=== PATIENT | male | born 1935 | race Caucasian/White ===

== ENCOUNTER → 2017-09-10 09:42 | Outpatient (CLI) | payer MEDICARE, SELFPAY ==
--- NOTE | 2017-09-10 09:53 | ECHOD_ITS ---
Reason For Study: MVR Procedure This was a 2D Doppler, Color Flow transthoracic echocardiogram. The exam was of adequate technical quality. Exam performed in department. Left Ventricle Normal LV size. Left ventricular systolic function is normal. The estimated ejection fraction is 60 %. No regional wall motion abnormalities noted. Right Ventricle Normal RV size. Normal systolic function. Atria The left atrium is moderately enlarged. Normal right atrium. No doppler evidence for ASD. Mitral Valve Stable appearing bioprosthetic mitral valve apparatus. Tricuspid Valve Normal tricuspid valve. Mild tricuspid valve insufficiency. Right ventricular systolic pressure estimated to be 23 mmHg. Aortic Valve Trisinus/trileaflet aortic valve. Normal aortic valve. Pulmonic Valve The pulmonic valve is not well visualized. Trivial pulmonic valve insufficiency. Great Vessels Borderline to mildly dilated aortic root / ascending aorta. Pericardium/Pleural No pericardial effusion. MMode/2D Measurements & Calculations LVIDd: 3.8 cm IVSd: 0.96 cm Ao root diam: 3.6 cm LVIDs: 2.4 cm LVPWd: 1.1 cm RVDd: 3.1 cm FS: 37.5 % LAV(MOD-bp): 78.4 ml EDV(MOD-sp4): 75.0 ml EDV(MOD-sp2): 84.4 ml LAV(MOD-bp) Indexed: 44.6 ml/m2 ESV(MOD-sp4): 24.9 ml EF(MOD-sp2): 65.8 % LAV(MOD-sp2): 71.0 ml EF(MOD-sp4): 66.8 % LAV(MOD-sp4): 85.3 ml SV(MOD-sp4): 50.1 ml SV(MOD-sp2): 55.5 ml LA A4 area: 25.0 cm2 RA A4 area: 12.6 cm2 Doppler Measurements & Calculations MV E max brent: 116.0 cm/sec Lat Peak E' Brent: 5.2 cm/sec Med Peak E' Brent: 4.0 cm/sec MV A max brent: 128.4 cm/sec E/E' lat: 22.4 E/E' med: 28.9 MV E/A: 0.90 MV V2 max: 137.2 cm/sec Ao V2 max: 140.1 cm/sec LV V1 max: 119.3 cm/sec MV max P.5 mmHg Ao max P.9 mmHg LV V1 max P.7 mmHg MV V2 mean: 93.8 cm/sec MV mean P.9 mmHg MV V2 VTI: 41.9 cm TR max brent: 221.9 cm/sec TR max P.7 mmHg Interpretation Summary Left ventricular systolic function is normal. The estimated ejection fraction is 60 %. The left atrium is moderately enlarged. Stable appearing bioprosthetic mitral valve apparatus. Mild tricuspid valve insufficiency. Trivial pulmonic valve insufficiency. Borderline to mildly dilated aortic root / ascending aorta. Right ventricular systolic pressure estimated to be 23 mmHg. Transmitral diastolic flow velocities suggest diastolic dysfunction. Ordering Physician: Jd Cheney/Caleb Tarango Referring Physician: JESUS SCHULTZ Performed By: Venus Estrella, PIETROCS, RVT
== END ==
PROVIDERS: Family Provider Family Medicine; PCP Family Medicine; Visit Provider Nurse Practitioner Family
DX: Z95.2 Presence of prosthetic heart valve (principal); I07.1 Rheumatic tricuspid insufficiency; I06.0 Rheumatic aortic stenosis; I27.20 Pulmonary hypertension, unspecified; Z98.890 Other specified postprocedural states
CPT/HCPCS: 93306

== ENCOUNTER → 2017-09-22 16:31 | Outpatient (CLI) | payer MEDICARE, SELFPAY ==
[2017-09-22 16:55] LABS: CREATININE FINGERSTICK 0.7 mg/dL (0.70-1.30); EGFR FINGERSTICK > 60.0000 mL/min (>60)
--- NOTE | 2017-09-22 17:00 | CT_ITS ---
STUDY: CTA CHEST REASON FOR EXAM: Male, 81 years old. 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 RADIATION DOSAGE (If Supplied By Facility): CTDIvol = ( 8.42 ) mGy, DLP = ( 292.85 ) mGycm TECHNIQUE: The examination was performed with the intravenous administration of 75 ml of Isovue 370 contrast material. 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 Individualized dose optimization techniques were used for this CT. COMPARISON: None. FINDINGS: There is limited enhancement of the main pulmonary artery and right and left pulmonary arteries. There is limited enhancement of the bilateral peripheral pulmonary arteries. There is no demonstrated pulmonary embolism. There is atherosclerotic calcification of the aortic arch with tortuosity. The ascending thoracic aorta is mildly ectatic measuring by 3.5 cm in AP diameter. There is no demonstrated aortic dissection. Sternal cerclage wires are present from a prior sternotomy. There is a mitral valve prosthesis. There is no evidence of pericardial effusion. There are mild coronary calcifications. The heart is within normal limits in size. There are few small normal size nodes in the aortopulmonic window. Normal hilar regions. Normal visualized trachea and bronchi. The lungs are well expanded. There are no pulmonary infiltrates. There are no pleural effusions. Normal chest wall structures. There are degenerative changes of thoracic spine. The visualized portions of the upper abdomen demonstrate partially visualized hypodense lesion in the posterior segment of the right lobe of the liver with probable early enhancement measuring about 3 cm. Correlation with ultrasound is recommended. CT/CTA Chest W/WO Contrast IMPRESSION: Mild ectasia of the ascending thoracic aorta measuring by 3.5 cm in AP diameter. Atherosclerotic calcifications of the aortic arch with tortuosity of the descending thoracic aorta. No evidence of aortic dissection. No infiltrate is seen. Suboptimal enhancement of the pulmonary arteries. No definite pulmonary embolism seen. Liver lesion as described above. Correlation with ultrasound is recommended. Electronically Signed: Dennis Felton MD at 3:48 EDT Tel , Service support ,
== END ==
PROVIDERS: Family Provider Family Medicine; PCP Family Medicine; Visit Provider Nurse Practitioner Family
DX: R93.1 Abnormal findings on diagnostic imaging of heart and coronary circulation (principal); Z95.2 Presence of prosthetic heart valve; Z98.890 Other specified postprocedural states
CPT/HCPCS: 71275; Q9967; A4216

== ENCOUNTER → 2019-06-29 09:30 | Outpatient (CLI) | payer MEDICARE, SELFPAY ==
[2019-06-21 14:03] VITALS: BMI 24.7
--- NOTE | 2019-06-29 09:34 | CDU_ITS ---
Reason For Study: TIA Rt. Velocities/BP Lt. Velocities/BP Prox CCA 152.1/20.6 cm/sec. Prox CCA 123.5/18.2 cm/sec. Mid CCA 90/18.8 cm/sec. Mid CCA 117.4/24.3 cm/sec. Dist CCA 67.3/14.6 cm/sec. Dist CCA 86.4/18.8 cm/sec. Prox ICA 56.4/9.1 cm/sec. Prox ICA 60.8/12.4 cm/sec. Mid ICA 69.5/15.7 cm/sec. Mid ICA 66.2/16.8 cm/sec. Dist ICA 78.3/19 cm/sec. Dist ICA 77.3/23.4 cm/sec. Rt. ICA/CCA = 0.9. Lt. ICA/CCA = 0.7. Prox ECA 112.1/11.4 cm/sec. Prox ECA 122.9/11.5 cm/sec. Rt. Vert. 40.4/9.9 cm/sec. Lt. Vert. 44.7/12.6 cm/sec. Right Extracranial There is homogeneous, smooth atherosclerotic plaque noted in the right common carotid artery. There is homogeneous, smooth atherosclerotic plaque noted in the right internal carotid artery. There is no significant atherosclerotic plaque noted in the right external carotid artery. Antegrade flow is noted in the right vertebral artery. Left Extracranial There is homogeneous, smooth atherosclerotic plaque noted in the left common carotid artery. There is homogeneous, smooth atherosclerotic plaque noted in the left internal carotid artery. There is intimal thickening but no significant atherosclerotic plaque noted in the left external carotid artery. Antegrade flow is noted in the left vertebral artery. Procedure Carotid Duplex 45490. Exam performed in department. Interpretation Summary No hemodynamically significant plaque right extracranial internal carotid artery with less than 50% stenosis. <50% stenosis right external carotid No hemodynamically significant plaque or stenosis left extracranial internal carotid artery with less than 50% stenosis <50% stenosis left external carotid Patent, antegrade, <50% stenosis bilateral vertebrals Ordering Physician: Caleb Tarango Referring Physician: MD Brandon Nickolas Performed By: Shruthi Brown RVT
--- NOTE | 2019-06-29 09:34 | ECHOD_ITS ---
Reason For Study: TIA/ CVA Procedure This was a 2D Doppler, Color Flow transthoracic echocardiogram. The exam was of adequate technical quality. Exam performed in department. Left Ventricle Normal LV size. Left ventricular systolic function is normal. The estimated ejection fraction is 60 %. Post operative septal motion. Unable to assess diastolic dysfunction due to arrhythmia. No regional wall motion abnormalities noted. Right Ventricle Normal RV size. Normal systolic function. Atria The left atrium is moderately enlarged. The right atrium is mildly enlarged. No doppler evidence for ASD. Bubble contrast study negative for right to left interatrial shunt. Mitral Valve Stable appearing bioprosthetic mitral valve apparatus. Trivial transvalvular insufficiency of the mitral valve. Tricuspid Valve Normal tricuspid valve. Moderate (2+) tricuspid valve insufficiency. Right ventricular systolic pressure estimated to be 31 mmHg. Aortic Valve Trisinus/trileaflet aortic valve. Normal aortic valve. Pulmonic Valve The pulmonic valve is not well visualized. Trivial pulmonic valve insufficiency. Great Vessels Mildly dilated ascending aorta. Pericardium/Pleural No pericardial effusion. Medication 22 gauge I.V. with prn adaptor inserted into right arm. Performed a rapid injection of agitated mix of 9 cc saline and 1cc air to assess for atrial septal defect. MMode/2D Measurements & Calculations LVIDd: 3.5 cm IVSd: 1.0 cm Ao root diam: 4.2 cm LVIDs: 2.4 cm LVPWd: 1.0 cm RVDd: 3.6 cm FS: 30.1 % LAV(MOD-bp): 84.6 ml LA A4 area: 25.4 cm2 LA dimension(2D): 5.4 cm LAV(MOD-bp) Indexed: 48.5 ml/m2 LAV(MOD-sp2): 80.9 ml LAV(MOD-sp4): 80.6 ml RA A4 area: 17.4 cm2 Time Measurements MV dec time: 0.51 sec Doppler Measurements & Calculations MV V2 max: 170.6 cm/sec Ao V2 max: 143.1 cm/sec LV V1 max: 137.0 cm/sec MV max P.7 mmHg Ao max P.2 mmHg LV V1 max P.5 mmHg MV V2 mean: 117.6 cm/sec LV V1 mean P.7 mmHg MV mean P.8 mmHg LV V1 mean: 104.5 cm/sec MV V2 VTI: 46.9 cm LV V1 VTI: 28.6 cm TR max abhinav: 266.6 cm/sec MV P1/2t-pr_phl: 148.7 msec TR max P.4 mmHg Interpretation Summary Left ventricular systolic function is normal. The estimated ejection fraction is 60 %. Post operative septal motion. The left atrium is moderately enlarged. The right atrium is mildly enlarged. Stable appearing bioprosthetic mitral valve apparatus. Trivial transvalvular insufficiency of the mitral valve. Moderate (2+) tricuspid valve insufficiency. Trivial pulmonic valve insufficiency. Mildly dilated ascending aorta. Right ventricular systolic pressure estimated to be 31 mmHg. Unable to assess diastolic dysfunction due to arrhythmia. Bubble contrast study negative for right to left interatrial shunt. Ordering Physician: Caleb Tarango Referring Physician: JESUS SCHULTZ Performed By: Venus Estrella, RDCS, RVT
--- NOTE | 2019-06-29 10:33 | CT_ITS ---
STUDY: CT BRAIN WITHOUT CONTRAST REASON FOR EXAM: Male, 83 years old. BRIEF EPISODE OF SLURRED SPEECH X 3 WEEKS AGO RADIATION DOSAGE (If Supplied By Facility): CTDIvol = ( 44.99 ) mGy, DLP = ( 796.11 ) mGycm TECHNIQUE: Transaxial CT imaging of the brain was performed without administration of intravenous contrast material. Individualized dose optimization techniques were used for this CT. COMPARISON: No relevant priors. FINDINGS: Normal soft tissue structures. Normal calvarium. There is mild cerebral atrophy with widening of the extra-axial spaces and ventricular dilatation. There are areas of decreased attenuation within the white matter tracts of the supratentorial brain, consistent with microvascular disease changes. 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 Normal basal ganglia and thalami. Normal brainstem. Normal cerebellum. There is no intracranial hemorrhage. There are no findings of an acute ischemic infarction. Atherosclerotic calcification of the cavernous portions of the internal carotid arteries bilaterally. Mild degree of mucosal thickening along the posterior aspect of the right maxillary sinus. CT/Brain/Head without Contrast IMPRESSION: Chronic involutional changes of the brain. Electronically Signed: Galen Zimmerman, at 12:26 EST , Service support ,
== END ==
PROVIDERS: PCP Family Medicine; Referring Provider Internal Medicine Cardiovascular Disease; Visit Provider Internal Medicine Cardiovascular Disease
DX: I48.0 Paroxysmal atrial fibrillation (principal); I06.0 Rheumatic aortic stenosis; Z86.73 Personal history of transient ischemic attack (TIA), and cerebral infarction without residual deficits
CPT/HCPCS: 70450; 93306; 93880

== ENCOUNTER → 2021-03-27 09:01 | Outpatient (CLI) | payer MEDICARE, SELFPAY ==
--- NOTE | 2021-03-27 09:07 | ECHOD_ITS ---
Reason For Study: Valve replacement eval Procedure This was a 2D Doppler, Color Flow transthoracic echocardiogram. The exam was of adequate technical quality. Exam performed in department. Left Ventricle Normal LV size. Left ventricular systolic function is normal. The estimated ejection fraction is 60 %. Post operative septal motion. Right Ventricle Normal RV size. Normal systolic function. Atria The left atrium is moderately enlarged. The right atrium is mildly enlarged. No doppler evidence for ASD. Mitral Valve Stable appearing bioprosthetic mitral valve apparatus. MIld (1+) transvalvular insufficiency of the mitral valve. Tricuspid Valve Normal tricuspid valve. Moderate (2+) tricuspid valve insufficiency. Right ventricular systolic pressure estimated to be 30 mmHg. Aortic Valve Trisinus/trileaflet aortic valve. Normal aortic valve. Trivial aortic valve insufficiency. Pulmonic Valve The pulmonic valve is not well visualized. Great Vessels Mildly dilated aortic root. Pericardium/Pleural No pericardial effusion. MMode/2D Measurements & Calculations LVIDd: 3.8 cm IVSd: 1.2 cm Ao root diam: 4.1 cm LVIDs: 2.7 cm LVPWd: 1.1 cm LA dimension: 5.1 cm FS: 31.1 % LAV(MOD-bp): 108.5 ml LA A4 area: 28.3 cm2 RA A4 area: 15.8 cm2 LAV(MOD-bp) Indexed: 61.4 ml/m2 LAV(MOD-sp2): 95.8 ml LAV(MOD-sp4): 107.5 ml Time Measurements MV dec time: 0.41 sec Doppler Measurements & Calculations MV E max brent: 157.5 cm/sec Lat Peak E' Brent: 4.6 cm/sec Med Peak E' Brent: 4.8 cm/sec MV A max brent: 121.3 cm/sec E/E' lat: 34.4 E/E' med: 32.5 MV E/A: 1.3 MV V2 max: 180.1 cm/sec MV P1/2t max brent: 179.1 cm/sec Ao V2 max: 148.0 cm/sec MV max P.0 mmHg MV P1/2t: 116.6 msec Ao max P.8 mmHg MV V2 mean: 99.4 cm/sec MV dec slope: 450.1 cm/sec2 MV mean P.6 mmHg MVA(P1/2t): 1.9 cm2 MV V2 VTI: 55.6 cm LV V1 max: 131.0 cm/sec MR max brent: 533.2 cm/sec PA V2 max: 87.6 cm/sec LV V1 max P.9 mmHg MR max P.7 mmHg MR mean brent: 415.2 cm/sec MR mean P.2 mmHg MR VTI: 173.0 cm TR max brent: 259.5 cm/sec TR max P.9 mmHg ECHO/Echo Complete Interpretation Summary Left ventricular systolic function is normal. The estimated ejection fraction is 60 %. Post operative septal motion. The left atrium is moderately enlarged. The right atrium is mildly enlarged. Stable appearing bioprosthetic mitral valve apparatus. MIld (1+) transvalvular insufficiency of the mitral valve. Moderate (2+) tricuspid valve insufficiency. Trivial aortic valve insufficiency. Mildly dilated aortic root. Right ventricular systolic pressure estimated to be 30 mmHg. Transmitral diastolic flow velocities suggest diastolic dysfunction (pseudonorm al pattern). Ordering Physician: Caleb Tarango Referring Physician: MD Brandon Nickolas Performed By: Navjot Sepulveda RCS
== END ==
PROVIDERS: PCP Family Medicine; Referring Provider Internal Medicine Cardiovascular Disease; Visit Provider Internal Medicine Cardiovascular Disease
DX: I07.1 Rheumatic tricuspid insufficiency (principal); Z95.3 Presence of xenogenic heart valve
CPT/HCPCS: 93306

== ENCOUNTER → 2022-03-14 | Outpatient (CLI) | payer MEDICARE, SELFPAY ==
--- NOTE | 2022-03-14 09:07 | ECHOD_ITS ---
Reason For Study: VALVE REPLACEMENT EVAL Procedure This was a 2D Doppler, Color Flow transthoracic echocardiogram. Exam performed in department. Left Ventricle Normal LV size. Left ventricular systolic function is normal. The estimated ejection fraction is 65 %. Post operative septal motion. Stage 2 diastolic dysfunction. Right Ventricle Normal right ventricle. Normal systolic function. Atria The left atrium is moderately enlarged. The right atrium is mildly enlarged. No doppler evidence for ASD. Negative saline contrast study on previous echo 08/2019. Mitral Valve Anterior leaflet diffuse mitral valve thickening. Moderate mitral valve stenosis. Moderate (2+) mitral valve insufficiency. Stable appearing bioprosthetic mitral valve apparatus. Tricuspid Valve Normal tricuspid valve. Moderate (2+) tricuspid valve insufficiency. Right ventricular systolic pressure estimated to be 36 mmHg. Aortic Valve Trisinus/trileaflet aortic valve. Mild focal aortic valve thickening. Trivial aortic valve insufficiency. Pulmonic Valve Normal pulmonic valve. Trivial pulmonic valve insufficiency. Great Vessels Normal aortic root. Pericardium/Pleural No pericardial effusion. MMode/2D Measurements & Calculations LVIDd: 3.4 cm IVSd: 0.77 cm LVOT diam: 2.0 cm LVIDs: 2.3 cm LVPWd: 0.91 cm LVOT area: 3.0 cm2 RVDd: 3.3 cm FS: 32.1 % Ao root diam: 3.6 cm LAV(MOD-bp): 99.4 ml LVAd ap4: 20.7 cm2 LAV(MOD-bp) Indexed: 56.3 ml/m2 LVLd ap4: 6.3 cm LAV(MOD-sp2): 99.7 ml EDV(MOD-sp4): 57.0 ml LAV(MOD-sp4): 98.2 ml EDV(sp4-el): 58.1 ml LVAs ap4: 10.9 cm2 LVLs ap4: 5.2 cm ESV(MOD-sp4): 19.2 ml ESV(sp4-el): 19.5 ml EF(MOD-sp4): 66.4 % EF(sp4-el): 66.4 % SV(MOD-sp4): 37.8 ml SV(sp4-el): 38.6 ml LA A4 area: 27.4 cm2 LA dimension(2D): 4.6 cm RA A4 area: 21.0 cm2 Time Measurements MV dec time: 0.49 sec Doppler Measurements & Calculations MV E max brent: 178.7 cm/sec Lat Peak E' Brent: 4.3 cm/sec Med Peak E' Brent: 4.1 cm/sec MV A max brent: 144.8 cm/sec E/E' lat: 41.4 E/E' med: 43.8 MV E/A: 1.2 MV V2 max: 230.9 cm/sec MV P1/2t max brent: 199.2 cm/sec Ao V2 max: 142.3 cm/sec MV max P.3 mmHg MV P1/2t: 169.5 msec Ao max P.1 mmHg MV V2 mean: 153.4 cm/sec Ao V2 mean: 106.2 cm/sec MV mean P.3 mmHg MV dec slope: 344.3 cm/sec2 Ao mean P.9 mmHg MV V2 VTI: 85.1 cm MVA(P1/2t): 1.3 cm2 Ao V2 VTI: 33.3 cm MVA(VTI): 0.98 cm2 COLIN(I,D): 2.5 cm2 COLIN(V,D): 2.3 cm2 LV V1 max: 110.6 cm/sec SV(LVOT): 83.2 ml PA V2 max: 89.3 cm/sec LV V1 max P.9 mmHg LV V1 mean P.0 mmHg LV V1 mean: 83.1 cm/sec LV V1 VTI: 27.8 cm TR max brent: 287.0 cm/sec TR max P.0 mmHg ECHO/Echo Complete Interpretation Summary Left ventricular systolic function is normal. The estimated ejection fraction is 65 %. Post operative septal motion. The left atrium is moderately enlarged. The right atrium is mildly enlarged. Stable appearing bioprosthetic mitral valve apparatus. Moderate mitral valve stenosis. Moderate (2+) mitral valve insufficiency. Moderate (2+) tricuspid valve insufficiency. Mild focal aortic valve thickening. Trivial aortic valve insufficiency. Trivial pulmonic valve insufficiency. Right ventricular systolic pressure estimated to be 36 mmHg. Trivial pulmonic valve insufficiency. Stage 2 diastolic dysfunction. Ordering Physician: Caleb Tarango Referring Physician: JESUS SCHULTZ Performed By: Claudine Rose RDCS
== END | disposition home or self-care (01) ==
PROVIDERS: PCP Family Medicine; Referring Provider Internal Medicine Cardiovascular Disease; Visit Provider Internal Medicine Cardiovascular Disease
DX: I05.2 Rheumatic mitral stenosis with insufficiency (principal)
CPT/HCPCS: 93306

== ENCOUNTER → 2023-07-31 | Outpatient (CLI) | payer MEDICARE, SELFPAY ==
--- NOTE | 2023-07-31 08:55 | ECHOD_ITS ---
Reason For Study: Chest pain, MVR Procedure This was a 2D Doppler, Color Flow transthoracic echocardiogram. Exam performed in department. Left Ventricle Normal LV size. Mild concentric left ventricular hypertrophy. The left ventricular ejection fraction is 65 %. Stage 2 diastolic dysfunction. Right Ventricle Normal right ventricle. Atria The left atrium is severely enlarged. The right atrium is mildly enlarged. Mitral Valve Bioprosthetic mitral valve. Mean mitral valve gradient 14 mmHg. Moderate mitral valve regurgitation. Tricuspid Valve Moderate (2+) tricuspid valve insufficiency. Right ventricular systolic pressure estimated to be 58 mmHg. Aortic Valve Trisinus/trileaflet aortic valve. Pulmonic Valve The pulmonic valve is not well visualized. Great Vessels Normal sized aortic root. Pericardium/Pleural No pericardial effusion. MMode/2D Measurements & Calculations LVIDd: 3.6 cm IVSd: 1.2 cm LVOT diam: 1.9 cm LVIDs: 2.4 cm LVPWd: 1.2 cm LVOT area: 3.0 cm2 RVDd: 3.9 cm FS: 32.7 % Ao root diam: 3.6 cm LAV(MOD-bp): 132.9 ml LVAd ap4: 23.7 cm2 LAV(MOD-bp) Indexed: 75.7 ml/m2 LVLd ap4: 6.5 cm LAV(MOD-sp2): 104.0 ml EDV(MOD-sp4): 72.5 ml LAV(MOD-sp4): 158.5 ml EDV(sp4-el): 73.2 ml LVAs ap4: 12.8 cm2 LVLs ap4: 5.7 cm ESV(MOD-sp4): 25.6 ml ESV(sp4-el): 24.5 ml EF(MOD-sp4): 64.7 % EF(sp4-el): 66.6 % LVAd ap2: 24.8 cm2 SV(MOD-sp4): 46.9 ml SV(MOD-sp2): 51.4 ml LVLd ap2: 6.6 cm EDV(MOD-sp2): 78.5 ml EDV(sp2-el): 78.8 ml LVAs ap2: 13.2 cm2 LVLs ap2: 5.7 cm ESV(MOD-sp2): 27.1 ml ESV(sp2-el): 25.9 ml EF(MOD-sp2): 65.4 % SV(sp4-el): 48.7 ml LA dimension(2D): 5.5 cm LA A4 area: 35.4 cm2 RA A4 area: 18.2 cm2 TAPSE: 1.4 cm Time Measurements MV dec time: 0.63 sec Doppler Measurements & Calculations MV E max brent: 228.9 cm/sec Lat Peak E' Brent: 3.0 cm/sec Med Peak E' Brent: 3.8 cm/sec MV A max brent: 169.1 cm/sec E/E' lat: 76.2 E/E' med: 60.7 MV E/A: 1.4 MV V2 max: 258.4 cm/sec MV P1/2t max brent: 250.7 cm/sec Ao V2 max: 166.5 cm/sec MV max P.8 mmHg MV P1/2t: 164.6 msec Ao max P.1 mmHg MV V2 mean: 182.5 cm/sec Ao V2 mean: 122.7 cm/sec MV mean P.1 mmHg MV dec slope: 446.2 cm/sec2 Ao mean P.7 mmHg MV V2 VTI: 81.1 cm MVA(P1/2t): 1.3 cm2 Ao V2 VTI: 41.0 cm AV (velocity ratio): 0.78 MVA(VTI): 1.2 cm2 COLIN(I,D): 2.3 cm2 COLIN(V,D): 2.3 cm2 LV V1 max: 128.0 cm/sec SV(LVOT): 95.0 ml PA V2 max: 80.4 cm/sec LV V1 max P.6 mmHg LV V1 mean P.5 mmHg LV V1 mean: 86.9 cm/sec LV V1 VTI: 32.0 cm TR max brent: 364.2 cm/sec TR max P.1 mmHg ECHO/Echo Complete Interpretation Summary Mild concentric left ventricular hypertrophy. The left ventricular ejection fraction is 65 %. Stage 2 diastolic dysfunction. The left atrium is severely enlarged. The right atrium is mildly enlarged. Bioprosthetic mitral valve. Mean peak mitral valve gradient 14 mmHg. Moderate m itral valve regurgitation. Mitral valve mean peak gradient on last examination from February 2022 was 10 mm Hg. Moderate (2+) tricuspid valve insufficiency. Ordering Physician: Shantel Shepard Referring Physician: MD Brandon Nickolas Performed By: Leonor Spear MONA
== END | disposition home or self-care (01) ==
PROVIDERS: PCP Family Medicine; Visit Provider Physician Assistant Medical
DX: R07.9 Chest pain, unspecified (principal); I07.1 Rheumatic tricuspid insufficiency; Z95.3 Presence of xenogenic heart valve
CPT/HCPCS: 93306

== ENCOUNTER → 2023-09-01 | Outpatient (CLI) | payer MEDICARE, SELFPAY ==
[2023-09-01 10:10] LABS: BNP,B-Type NATRIURETIC PEPTIDE 253.5 pg/mL (0-100)
[2023-09-01 10:17] LABS: Anion Gap 6 (5-15); BUN 21 mg/dL (7-18); BUN/Creat Ratio 19.4 RATIO (10-20); Calcium,Total 9.2 mg/dL (8.5-10.1); Chloride 106 mmol/L (98-107); Creatinine, Serum 1.08 mg/dL (0.70-1.30); EST Glomerular Filtration Rate 69 mL/min (>60); Est Glom Filt Rate - Afr Amer 83 mL/min (>60); Glucose 82 mg/dL (74-106); Potassium 3.7 mmol/L (3.5-5.1); Sodium Level 141 mmol/L (136-145)
== END | disposition home or self-care (01) ==
LOC: LAB 08:53
PROVIDERS: PCP Family Medicine; Referring Provider Physician Assistant Medical; Visit Provider Physician Assistant Medical
DX: R06.02 Shortness of breath (principal)
CPT/HCPCS: 36415; 80048; 83880

== ENCOUNTER → 2023-12-08 | Outpatient (CLI) | payer MEDICARE, SELFPAY ==
[2023-12-08 09:20] LABS: Absolute Lymphocyte Count 1.23 X10^3/uL (0.83-4.51); Absolute Neutrophil Count 5.5 X10^3/uL (2.0-7.7); Basophil# 0.04 X10^3/uL; Basophil% 0.5 % (0-1); Eosinophil# 0.16 X10^3/uL; Eosinophils% 2.1 % (0-5); Hematocrit 43.9 % (40-54); Hemoglobin 14.4 g/dL (13.0-16.5); Lymphocyte # 1.23 X10^3/ul (0.83-4.51); Lymphocyte % 16.4 % (19-41); Mean Corp Hgb Conc 32.8 g/dL (32-36); Mean Corpuscular Hgb 30.6 pg (27.0-32.0); Mean Corpuscular Volume 93.2 fL (80-94); Monocyte# 0.61 X10^3/uL; Monocyte% 8.1 % (0-10); NRBC Flagged by Analyzer 0 % (0-5); Neutrophil # 5.45 X10^3/uL (2.7-7.7); Neutrophil % 72.6 % (47-70); Platelet Count 194 K/mm3 (150-450); RBC Distribution Width CV 14.9 % (11.6-14.6); RBC Distribution Width SD 51.2 fl (35.1-43.9); Red Blood Count 4.71 M/mm3 (4.6-6.2); White Blood Count 7.5 K/mm3 (4.4-11.0)
[2023-12-08 10:34] LABS: ALB/GLOB Ratio 0.8 RATIO (0.9-2.4); AST(SGOT) 18 U/L (15-37); Alanine Aminotransfer ALT/SGPT 23 U/L (16-61); Albumin, Serum 3.4 g/dL (3.2-5.0); Alkaline Phosphatase 73 U/L (45-117); Anion Gap 10 (5-15); BUN 22 mg/dL (7-18); BUN/Creat Ratio 19.1 RATIO (10-20); Calcium,Total 9.2 mg/dL (8.5-10.1); Chloride 106 mmol/L (98-107); Creatinine, Serum 1.15 mg/dL (0.70-1.30); EST Glomerular Filtration Rate 64 mL/min (>60); Est Glom Filt Rate - Afr Amer 78 mL/min (>60); Globulin 4.2 g/dL (2.2-4.2); Glucose 101 mg/dL (74-106); Potassium 3.4 mmol/L (3.5-5.1); Protein, Total 7.6 g/dL (6.4-8.2); Sodium Level 140 mmol/L (136-145)
== END | disposition home or self-care (01) ==
LOC: LAB 08:24
PROVIDERS: PCP Family Medicine; Referring Provider Physician Assistant Medical; Visit Provider Physician Assistant Medical
DX: R06.02 Shortness of breath (principal)
CPT/HCPCS: 36415; 80053; 83880; 85025

== ENCOUNTER → 2023-12-10 | Outpatient (CLI) | payer MEDICARE, SELFPAY | END | disposition home or self-care (01) | LOC: PSN 08:19 | PROVIDERS: PCP Family Medicine; Referring Provider Physician Assistant Medical; Visit Provider Physician Assistant Medical | DX: R06.02 Shortness of breath (principal) | CPT/HCPCS: 93225; 93226 ==

== ENCOUNTER → 2023-12-16 | Outpatient (CLI) | payer MEDICARE, SELFPAY ==
--- NOTE | 2023-12-16 08:22 | RAD_ITS ---
STUDY: X-RAY CHEST REASON FOR EXAM: Male, 88 years old. PRUETT TECHNIQUE: PA and lateral views of the chest. COMPARISON: 09/06/2013 FINDINGS: Interval median sternotomy with heart valve replacement. Small bilateral pleural effusions with bibasilar atelectasis. Normal size heart. Normal mediastinum and margot. Normal visualized pulmonary arteries. Normal visualized aortic arch and descending thoracic aorta. Normal visualized thoracic spine. Normal visualized ribs, clavicles, and shoulders. There is no demonstrated abnormality of the visualized soft tissue structures of the upper abdomen. RAD/Chest PA and Lateral IMPRESSION: Small bilateral pleural effusions with bibasilar atelectasis. Electronically Signed: Saud Glass MD at 8:44 EDT ,
== END | disposition home or self-care (01) ==
LOC: RAD 08:12
PROVIDERS: PCP Family Medicine; Visit Provider Physician Assistant Medical
DX: R06.09 Other forms of dyspnea (principal); Z95.3 Presence of xenogenic heart valve
CPT/HCPCS: 71046

== ENCOUNTER → 2023-12-22 | Outpatient (CLI) | payer MEDICARE, SELFPAY ==
--- NOTE | 2023-12-22 | FLU_PTH ---
PATIENT: FUAD PURVIS LOC: [facility]#:[id number] AGE/SX: 88/M ROOM: RE12/22/[address]: ELICEO Peralta : 1935 BED: DIS: 12/22/2023 SPEC #: [id number] RECD: 12/22/23 08:42 STATUS: DANIEL KARINA #: [id number] CATHY: 12/22/23 00:[address]: Shantel Shepard DEPT: CYTOLOGY RECD BY: Sahra Padron ENTERED: 12/22/23 10:15 SP TYPE: Fluid OTHR DR: Dr. Nickolas Taylor MD Tissues: Pleural fluid, NOS Procedures: Special Stain Group II Surgery Specimen Level IV Cytospin Fluid HEADER OPERATION: Thoracentesis fluid PRE-OP DIAGNOSIS: Pleural effusion TISSUE SUBMITTED: Thoracentesis fluid for cytology DIAGNOSIS CYTOLOGY Thoracentesis fluid for cytology (cytospin): Negative for malignant cells. See comment. LEENA/ 12/23/2023 COMMENT Immunohistochemistry ([id number]) supports the above diagnosis. Clinical correlation and appropriate follow up are necessary. This case has been reviewed in consultation with Dr. Cody who concurs with the above diagnosis. CYTOLOGY STUDY Slides are reviewed. CYTOLOGY GROSS Received is 80 ml of ana-cloudy fluid labeled with the patient's name and and designated per the requisition as Thoracentesis fluid. Submitted for cytology preparation including cell block. Mr 12/22/2023 TC:5 CPT: 41317,31964
--- NOTE | 2023-12-22 | IMM_PTH ---
PATIENT: FUAD PURVIS LOC: [facility]#:[id number] AGE/SX: 88/M ROOM: RE12/22/[address]: ELICEO Peralta : 1935 BED: DIS: 12/22/2023 SPEC #: [id number] RECD: 12/23/23 10:38 STATUS: DANIEL REQ #: [id number] CATHY: 12/22/23 00:[address]: Shantel Shepard DEPT: IMMUNOHISTOCHEMISTRY RECD BY: Pranav Stephen ENTERED: 12/23/23 10:39 SP TYPE: IMMUNO OTHR DR: Dr. Nickolas Taylor MD Tissues: THORACIC FLUID Procedures: Synapto (add) RCC (add) NAPSIN A (add) Bert Ret (add) CK20 (add) CK5-6 (add) CK7 (add) CK8 (add) HEP PAR (add) TTF1 (add) Vimentin (add) Pankeratin (initial) P40 (add) PSAP (add) CD68 (ADD) PHYSICIAN & [address] [address] SPECIMEN INFORMATION: Tissue Source: Thoracentesis fluid Clinical Info: Pleural effusion Specimen Number: [id number] CPT code: 33534,66182t04 METHODOLOGY: Deparaffinized sections of prefer/formalin-fixed tissue or PAP/DQ stained slides are incubated with monoclonal/polyclonal antibodies/oligonucleotide probes. Localization is made via biotin free immunoperoxidase method. Appropriate controls are performed and reacted as expected. Results on target cell population are indicated in the following table: RESULTS: ANTIBODY / CLONE RESULT AE1-3 (AE1/AE3/PCK26) negative * CK7 (OV-TL12/30) negative * CK8 (98jrknA34) negative * CK20 (KS20.8) negative Vimentin (V9) negative * CD68 (KP-1) negative TTF-1 (8G7G3/1) negative Napsin A (Rabbit Polyclonal) negative HepPar (OCh1E5) negative RCC (PN-15) negative PSAP (PASE/4LJ) negative CALRET (polyclonal) negative * CK5-6 (D5 & 1684) negative * P40 (BC28) negative * Positive for mesothelial cells These tests were developed and their performance characteristics determined by [facility]. They may not have been cleared or approved by the U.S. Food and Drug Administration. The FDA has determined that such clearance or approval is not necessary. The above immunohistochemical/dualISH markers are ordered and reviewed by the Pathologist. INTERPRETATION: Thoracentesis fluid for cytology (cytospin and cellblock): Negative for malignant cells. LEENA/ 12/24/2023
[2023-12-22] MEDS: Lidocaine 2% (20 ml mdv) 20 ML Vial INFILT (08:05)
--- NOTE | 2023-12-22 08:11 | RAD_ITS ---
STUDY: X-RAY CHEST REASON FOR EXAM: Male, 88 years old. Post thora TECHNIQUE: AP and inspiration and expiration views. COMPARISON: Comparison is made with prior study dated December 16, 2023. FINDINGS: The patient is status post right thoracentesis. There is no evidence of pneumothorax. Blunting of the right costophrenic angle. Residual pleural-parenchymal changes at the left lung base. RAD/Chest Insp/Exp 2 View IMPRESSION: Status post right thoracentesis. No evidence of pneumothorax. Electronically Signed: Galen Zimmerman MD at 8:51 EDT ,
--- NOTE | 2023-12-22 08:22 | PRO.PCM_ITS ---
Procedure Report Date of Procedure: 12/22/23 Assessment & Plan Assessment/Plan (1) Bilateral pleural effusion: PLAN: PROCEDURE: Ultrasound Guided Thoracentesis ORDERING PROVIDER: Shantel Shepard PA-C INDICATION: Male, 88 years old. Bilateral pleural effusions. PROVIDER: ÁNGELA Lemos PROCEDURE: The risks, benefits, and alternatives to the procedure were explained to the patient. The specific risks of bleeding, infection, and pneumothorax requiring chest tube insertion were discussed and accepted. Written informed consent was obtained. The patient was placed in the sitting, upright position. Ultrasonographic evalu ation of the bilateral lower pleural spaces was carried out. An adequate pocket was identified in the right lower pleural space.The overlying skin was prepped and draped in sterile fashion. 2% lidocaine was administered subcutaneously for local anesthesia. Under ultrasound guidance, a 5-Macedonian thoracentesis needle/catheter system was advanced into the right posterior lower pleural fluid collection. 1410 ml of clear ana colored fluid was drained. 100 and mL of this fluid was collected and sent to laboratory for analysis. The catheter was removed, and a sterile dressing was applied. The patient tolerated the procedure well. A chest x-ray was ordered. IMPRESSION: Successful ultrasound-guided thoracentesis of right pleural effusion. Procedures Radiology Radiology US Procedures: [id number] Thoracentesis
[2023-12-22 08:26] VITALS: BP 122/71; PULSE 96; RESP 18; TEMP 36.2; O2SAT 97
[2023-12-22 08:27] VITALS: BP 114/72; PULSE 94; RESP 18
[2023-12-22 08:28] VITALS: BP 107/77; PULSE 85; RESP 18; O2SAT 97
== END | disposition home or self-care (01) ==
LOC: US 07:20
PROVIDERS: PCP Family Medicine; Referring Provider Physician Assistant Medical; Visit Provider Physician Assistant Medical
DX: J90 Pleural effusion, not elsewhere classified (principal); R06.09 Other forms of dyspnea
CPT/HCPCS: 32555; 71046; 88108; 88305; 88313; 88341; 88342

== ENCOUNTER 2023-12-31 18:42 | Inpatient (IN) | payer MEDICARE, SELFPAY ==
[2023-12-31] VITALS (13 sets, daily range): BP systolic 98–178; BP diastolic 50–101; PULSE 90–115; RESP 12–35; TEMP 36.2–37.1; O2SAT 78–96; BMI 23.9; BMI 22.4
--- NOTE | 2023-12-31 18:50 | ED.VIS.DYS ---
HPI History of Present Illness Chief Complaint: Shortness of Breath [facility] Medical History (Updated 12/31/23 @ 20:[address] Lucila Matt MD) Hypothyroid Hypogonadism Rheumatic tricuspid insufficiency Paroxysmal atrial fibrillation Rheumatic aortic stenosis Pulmonary HTN Tricuspid regurgitation Mitral valve stenosis, rheumatic Home Medications ?Medication ?Instructions ?Recorded ?Last Taken ?Type levothyroxine 75 mcg tablet 75 mcg PO DAILY 08/27/13 08/26/13 History aspirin 325 mg tablet 325 mg PO DAILY 06/04/19 Unknown History furosemide 40 mg tablet (Lasix) 40 mg PO DAILY #90 tabs 10/09/23 Unknown Rx potassium chloride 10 mEq 20 meq (2 x 10 mEq) PO DAILY #180 12/08/23 Unknown Rx tablet,extended release tabs Allergy/AdvReac Type Severity Reaction Status Date / Time alendronate sodium (From Allergy Unknown Verified 09/01/23 08:21 Fosamax) Family History Father Colon cancer Sister FH: mitral valve repair Surgical History History of mitral valve replacement with bioprosthetic valve (~10/20/13) History of left heart catheterization (LHC) History of mitral valve replacement (10/20/13) Social History Smoking Status: Never smoker alcohol intake: never substance use type: does not use caffeine: No what type of physical activity do you participate in: none seatbelt use: always do you feel safe at home: Yes EXAM Physical Exam Const Vital Signs: 12/31/23 18:44 12/31/23 18:46 12/31/23 18:46 Temperature 97.2 F L 98.7 F Temperature Source Temporal Oral Pulse Rate 112 H 111 H Respiratory Rate 26 H 30 H Respiratory Effort Respiratory Pattern Blood Pressure 178/101 H Blood Pressure Mean 126 Pulse Ox 81 92 92 Oxygen Delivery Method Room Air Nasal Cannula Nasal Cannula Oxygen Flow Rate (L/min) 5 5 Fraction of Inspired Oxygen (FIO2) 12/31/23 18:48 12/31/23 18:55 12/31/23 19:04 Temperature Temperature Source Pulse Rate 115 H Respiratory Rate 35 H Respiratory Effort Short of Breath Labored Respiratory Pattern Tachypnea Blood Pressure Blood Pressure Mean Pulse Ox 91 96 Oxygen Delivery Method Nasal Cannula Nasal Cannula Oxygen Flow Rate (L/min) 5 5 Fraction of Inspired Oxygen (FIO2) 35 12/31/23 19:43 12/31/23 19:46 12/31/23 19:51 Temperature 98 F 98 F Temperature Source Axillary Pulse Rate 99 100 100 Respiratory Rate 30 H 30 H 30 H Respiratory Effort Respiratory Pattern Blood Pressure 105/61 105/61 105/61 Blood Pressure Mean 75 75 75 Pulse Ox 96 96 96 Oxygen Delivery Method Bi-pap Bi-pap Oxygen Flow Rate (L/min) Fraction of Inspired Oxygen (FIO2) 12/31/23 20:00 12/31/23 20:11 Temperature Temperature Source Pulse Rate 94 97 Respiratory Rate 27 H 27 H Respiratory Effort Respiratory Pattern Blood Pressure 107/63 Blood Pressure Mean 77 Pulse Ox 95 95 Oxygen Delivery Method Bi-pap Oxygen Flow Rate (L/min) Fraction of Inspired Oxygen (FIO2) 35 MDM MDM MDM Narrative Medical decision making narrative: HISTORY OF PRESENT ILLNESS: 88-year-old male presents with shortness of breath. She has had worsening shortness of breath since Friday, 4 days ago. Notes he stopped his diuretic at that time given increased shortness of breath. Denies any chest pain. Denies any bleeding diathesis. Denies any recent illnesses such as cough fever chills. Denies any lower extremity edema. The patient denies recent surgery in the last 4 weeks or immobilization in the last 3 days, denies previous diagnosis of DVT or PE, hemoptysis, unilateral leg swelling or malignancy with treatment the last 6 months or palliative. No estrogen use noted. Per nursing patient was 81% on room air. He was started on 5 L by nasal cannula REVIEW OF SYSTEMS: Pertinent positives: Shortness of breath Pertinent negatives: Chest pain, leg swelling PHYSICAL EXAM: Nursing triage notes reviewed, Vital signs reviewed Constitutional: please see mdm HENT: MMM Eyes: Pupils equal round and reactive to light, Extraocular muscles intact Neck: No stridor, no JVD, full neck ROM Lungs: Severe conversational dyspnea, tachypnea, increased work of breathing, rales noted bilaterally Heart: Regular rate and rhythm, No murmurs, No rubs and No gallops, 2+ distal pulses (radial, femoral, posterior tibial) in all extremities Abdomen: Soft, there is no tenderness, rigidity, rebound or guarding, no obvious peritoneal signs, no palpable pulsatile abdominal masses, no auscultated abdominal bruit : No CVAT Extremities: No edema Neuro: No focal neurological deficits, cranial nerves II through XII intact, 5/5 strength in all extremities. Intact sensation to light touch in all extremities, 2+ reflexes bilateral patella tendons. Normal gait. No ataxia. Skin: No rash or lesions noted MEDICAL DECISION MAKING: Chief Complaint: Shortness of breath External records reviewed: Imaging reviewed: Echocardiogram reviewed from July 2023 shows ejection fraction of 55% with stage II diastolic dysfunction Factors affecting care: Pulmonary hypertension, dyspnea exertion, paroxysmal A-fib no anticoagulation noted in the chart Social determinants of health: none History obtained from others: none Consults: Internal medicine (Dr. Matt) MDM Narrative: Patient was initially hypertensive with a Blood pressure 178/101, tachycardic at a rate of 111, tachypneic at rate of 30 saturating 92% on 5 L by nasal cannula. Exam was most consistent with likely volume overload/CHF exacerbation. I considered the following differential diagnosis: Flash pulmonary edema, CHF exacerbation, PE, COPD exacerbation, pneumonia, anemia, electrolyte disturbance, arrhythmia IVs were established, patient was placed on rescue BiPAP given tachypnea and signs of significant respiratory distress. I obtained a broad lab and imaging workup to further elucidate etiology the patient's complaint. ALL IMAGES (IF OBTAINED) HAVE BEEN PERSONALLY REVIEWED AND INTERPRETED BY MYSELF. EKG shows sinus tachycardia, normal axis, normal intervals, no obvious STEMI CBC with leukocytosis suggestive of systemic inflammation, no anemia or thrombocytopenia BMP without significant electrolyte disturbances, no evidence of end-organ hypoperfusion or metabolic acidosis is evident by no anion gap elevation, normal bicarb Chest x-ray is read reviewed myself shows evidence of bilateral pulmonary edema, volume overload (given these findings I gave the patient 60 mg IV Lasix, placed a Vanessa for accurate I&O monitoring) On reassessment patient had improved blood pressure down to 105/61 heart rate improved to 100, patient remained tachypneic on BiPAP but looks much better clinically. I suspect he stable from a heart failure exacerbation. Given BiPAP, respiratory failure and extremities will admit the patient to PCU. Discussed with hospitalist Dr. Matt. The patient and/or family, caregivers express understanding. The patient and/or family, caregivers agrees with the plan. Shared decision making: I will have a discussion with the patient and or visitors regarding risk/benefits of further testing or admission. They will be made aware of of the risk/benefits inherent in this decision they will be given the opportunity to voice understanding. Total critical care time today provided was at least 60 minutes. This excludes separately billable procedures. Critical care time (if documented) is secondary to the patient having high probability of clinically significant/life threatening deterioration in the patient's condition which required my urgent intervention. Impression: 1. Acute respiratory failure 2. Hypertension 3. Tachycardia 4. Tachypnea Dispo: Admit to PCU This note was generated with [employer] dictation software. It may contain incorrect words, spelling, and punctuation that were not noted in review of the chart prior to signing. Lab Data Labs: Laboratory Results - last 24 hr 12/31/23 18:50 WBC 11.6 H RBC 4.72 Hgb 14.2 Hct 42.9 MCV 90.9 MCH 30.1 MCHC 33.1 RDW Std Deviation 45.9 H RDW Coeff of Chhaya 13.7 Plt Count 242 MPV 9.6 Immature Gran % (Auto) 0.600 Neut % (Auto) 74.9 H Lymph % (Auto) 13.2 L [place] % (Auto) 8.4 Eos % (Auto) 2.4 Baso % (Auto) 0.5 Absolute Neuts (auto) 8.7 H Absolute Lymphs (auto) 1.52 Nucleated RBC % 0 Sodium 137 Potassium 3.9 Chloride 107 Carbon Dioxide 25.0 Anion Gap 5 BUN 24 H Creatinine 1.07 Estim Creat Clear Calc 44.72 Est GFR (MDRD) Af Amer 84 Est GFR (MDRD) Non-Af 70 BUN/Creatinine Ratio 22.4 H Glucose 139 H Calcium 8.8 Magnesium 2.3 Troponin I High Sens 16 B-Natriuretic Peptide 477.7 H Radiography Diagnostic Testing: Clinical Impression(s) from Imaging Studies Chest X-Ray 12/31/23 19:03 IMPRESSION: Moderate interstitial edema and effusions increased. Electronically Signed: Donte Bah MD at 19:55 EDT , Discharge Plan Triage Chief Complaint: Shortness of Breath ED Provider: Ovidio Ramirez Dx/Rx/DC Orders Primary Care Provider: Nickolas Taylor
--- NOTE | 2023-12-31 18:53 | EKG12_ITS ---
Test Reason : SOB Blood Pressure : / mmHG Vent. Rate : 112 BPM Atrial Rate : 112 BPM P-R Int : 168 ms QRS Dur : 074 ms QT Int : 332 ms P-R-T Axes : 042 067 047 degrees QTc Int : 453 ms Sinus tachycardia with occasional Premature ventricular complexes Nonspecific ST abnormality Abnormal ECG No previous ECGs available Confirmed by MEGHAN SCHAFER, TIFFANY ([id number]), advertising editor SILAS GOTTLIEB ([id number]) on 01/06/2024 11:32:31 AM Referred By: Confirmed By:TIFFANY CHRISTIANSON MD
[2023-12-31 18:57] LABS: Absolute Lymphocyte Count 1.52 X10^3/uL (0.83-4.51); Absolute Neutrophil Count 8.7 X10^3/uL (2.0-7.7); Basophil# 0.06 X10^3/uL; Basophil% 0.5 % (0-1); Eosinophil# 0.28 X10^3/uL; Eosinophils% 2.4 % (0-5); Hematocrit 42.9 % (40-54); Hemoglobin 14.2 g/dL (13.0-16.5); Lymphocyte # 1.52 X10^3/ul (0.83-4.51); Lymphocyte % 13.2 % (19-41); Mean Corp Hgb Conc 33.1 g/dL (32-36); Mean Corpuscular Hgb 30.1 pg (27.0-32.0); Mean Corpuscular Volume 90.9 fL (80-94); Mean Platelet Vol. 9.6 fl (6.2-12.0); Monocyte# 0.97 X10^3/uL; Monocyte% 8.4 % (0-10); NRBC Flagged by Analyzer 0 % (0-5); Neutrophil # 8.65 X10^3/uL (2.7-7.7); Neutrophil % 74.9 % (47-70); Platelet Count 242 K/mm3 (150-450); RBC Distribution Width CV 13.7 % (11.6-14.6); RBC Distribution Width SD 45.9 fl (35.1-43.9); Red Blood Count 4.72 M/mm3 (4.6-6.2); White Blood Count 11.6 K/mm3 (4.4-11.0)
--- NOTE | 2023-12-31 19:03 | RAD_ITS ---
STUDY: X-RAY CHEST REASON FOR EXAM: Male, 88 years old. Shortness of breath TECHNIQUE: Single frontal view of the chest. COMPARISON: Chest x-ray December 22, 2023 FINDINGS: Sternotomy wires and prosthetic heart valve. Moderate interstitial edema. Bilateral pleural effusions. Normal size heart. Normal mediastinum and margot. Normal visualized pulmonary arteries. Normal visualized aortic arch and descending thoracic aorta. Normal visualized thoracic spine. Normal visualized ribs, clavicles, and shoulders. There is no demonstrated abnormality of the visualized soft tissue structures of the upper abdomen. RAD/Chest 1 View (Portable) IMPRESSION: Moderate interstitial edema and effusions increased. Electronically Signed: Donte Bah MD at 19:55 EDT ,
[2023-12-31 19:20] LABS: Anion Gap 5 (5-15); BUN 24 mg/dL (7-18); BUN/Creat Ratio 22.4 RATIO (10-20); Calcium,Total 8.8 mg/dL (8.5-10.1); Chloride 107 mmol/L (98-107); Creatinine, Serum 1.07 mg/dL (0.70-1.30); EST Glomerular Filtration Rate 70 mL/min (>60); Est Glom Filt Rate - Afr Amer 84 mL/min (>60); Estimated Creatinine Clearance 44.72 ml/min; Glucose 139 mg/dL (74-106); Potassium 3.9 mmol/L (3.5-5.1); Sodium Level 137 mmol/L (136-145)
[2023-12-31 19:33] LABS: BNP,B-Type NATRIURETIC PEPTIDE 477.7 pg/mL (0-100)
[2023-12-31] MEDS: Furosemide 100 MG/10 ML Vial 60 MG IV (19:47)
[2023-12-31] MEDS: Lidocaine Jelly 2% 20 ML Syringe (URO-JET) 1 APPLIC TOPICAL (19:47)
--- NOTE | 2023-12-31 20:15 | PCM.HP.STD ---
HPI - General General Date of Admission: 12/31/23 Date of Service: 12/31/23 Chief Complaint: Dyspnea, hypoxia. 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 ED on 12/31/23 with history of shortness of breath ongoing for the last 4 days reporting that he recently discontinued his diuretic with progressively worsening dyspnea since with no chest pain morning recent URI type symptoms including cough, fever, chills, congestion with no marked peripheral edema but given worsening dyspnea prompted transition to the ED to be cautious. Workup in the ED included T97.2, heart 112, respiratory rate 26, initially 81% on room air improving transiently to 91% on 5 L eventually placed on BiPAP with 35% FiO2 with most recent repeat vital signs T98, heart rate 100, BP 105/61, respiratory rate 30, 96% on BiPAP, CBC with WC 11.6, hematin 14.2, MCV 90.9, platelet 242 with left shift, BMP with BUN/creatinine 24/1.07, GFR 70, glucose 139, BNP 477.7, respiratory ED rapid panel pending upon evaluation, troponin pending upon evaluation, chest x-ray with moderate exertional edema and effusions, EKG with sinus tachycardia with no acute evidence of ischemia. In the ED patient administered IV Lasix with Vanessa placed and transitioned on BiPAP as noted. Patient notes he feels considerably improved following BiPAP initiation and IV Lasix diuresis. He is able to talk in full sentences and is asking even to have the BiPAP off. He notes that he recently stopped his diuretic because he still felt short of breath and thought this may be the cause unfortunately but did not notify cardiology at all. He states he has a visit with cardiology 01/01/2024. [facility], [facility] Medical History Hypothyroid Hypogonadism Rheumatic tricuspid insufficiency Paroxysmal atrial fibrillation Rheumatic aortic stenosis Pulmonary HTN Tricuspid regurgitation Mitral valve stenosis, rheumatic Home Medications ?Medication ?Instructions ?Recorded ?Last Taken ?Type levothyroxine 75 mcg tablet 75 mcg PO DAILY 08/27/13 08/26/13 History aspirin 325 mg tablet 325 mg PO DAILY 06/04/19 Unknown History furosemide 40 mg tablet (Lasix) 40 mg PO DAILY #90 tabs 10/09/23 Unknown Rx potassium chloride 10 mEq 20 meq (2 x 10 mEq) PO DAILY #180 12/08/23 Unknown Rx tablet,extended release tabs Allergy/AdvReac Type Severity Reaction Status Date / Time alendronate sodium (From Allergy Unknown Verified 09/01/23 08:21 Fosamax) Family History Father Colon cancer Sister FH: mitral valve repair Mother No problems noted. Surgical History History of mitral valve replacement with bioprosthetic valve (~10/20/13) History of left heart catheterization (LHC) History of mitral valve replacement (10/20/13) Social History Smoking Status: Never smoker alcohol intake: never substance use type: does not use caffeine: No what type of physical activity do you participate in: none seatbelt use: always do you feel safe at home: Yes ROS ROS Narrative Admission Review of Systems: CONSTITUTIONAL: No weight loss, fever, chills, + weakness or fatigue. HEENT: Eyes: No visual loss, blurred vision, double vision or yellow sclerae. Ears, Nose, Throat: No hearing loss, sneezing, congestion, runny nose or sore throat. SKIN: No rash or itching, lesions, wounds. CARDIOVASCULAR: + Significant orthopnea. No chest pain, chest pressure or chest discomfort, palpitations, edema, syncopal events. RESPIRATORY: + Severe sudden onset dyspnea, worsening. No marked cough or sputum, wheezing, hemoptysis. GASTROINTESTINAL: No anorexia, nausea, vomiting or diarrhea, abdominal pain, melena, BRBPR. GENITOURINARY: No dysuria, frequency, urgency or retention. NEUROLOGICAL: No headache, dizziness, syncope, paralysis, ataxia, numbness or tingling in the extremities, focal weakness, change in bowel or bladder control, seizure. MUSCULOSKELETAL: + muscle, back pain, joint pain or stiffness. HEMATOLOGIC: No anemia. + Easy bleeding/bruising. LYMPHATICS: No enlarged nodes. No history of splenectomy. PSYCHIATRIC: No history of depression or anxiety. ENDOCRINOLOGIC: No reports of sweating, cold or heat intolerance. No polyuria or polydipsia. ALLERGIES: No history of asthma, hives, eczema or rhinitis. Vital Signs Vital Signs Vital Signs: 12/31/23 18:44 12/31/23 18:46 12/31/23 18:46 Temperature 97.2 F L 98.7 F Temperature Source Temporal Oral Pulse Rate 112 H 111 H Respiratory Rate 26 H 30 H Respiratory Effort Respiratory Pattern Blood Pressure 178/101 H Blood Pressure Mean 126 Pulse Ox 81 92 92 Oxygen Delivery Method Room Air Nasal Cannula Nasal Cannula Oxygen Flow Rate (L/min) 5 5 Fraction of Inspired Oxygen (FIO2) 12/31/23 18:48 12/31/23 18:55 12/31/23 19:04 Temperature Temperature Source Pulse Rate 115 H Respiratory Rate 35 H Respiratory Effort Short of Breath Labored Respiratory Pattern Tachypnea Blood Pressure Blood Pressure Mean Pulse Ox 91 96 Oxygen Delivery Method Nasal Cannula Nasal Cannula Oxygen Flow Rate (L/min) 5 5 Fraction of Inspired Oxygen (FIO2) 35 12/31/23 19:43 12/31/23 19:46 12/31/23 19:51 Temperature 98 F 98 F Temperature Source Axillary Pulse Rate 99 100 100 Respiratory Rate 30 H 30 H 30 H Respiratory Effort Respiratory Pattern Blood Pressure 105/61 105/61 105/61 Blood Pressure Mean 75 75 75 Pulse Ox 96 96 96 Oxygen Delivery Method Bi-pap Bi-pap Oxygen Flow Rate (L/min) Fraction of Inspired Oxygen (FIO2) 12/31/23 20:11 Temperature Temperature Source Pulse Rate 97 Respiratory Rate 27 H Respiratory Effort Respiratory Pattern Blood Pressure Blood Pressure Mean Pulse Ox 95 Oxygen Delivery Method Oxygen Flow Rate (L/min) Fraction of Inspired Oxygen (FIO2) 35 Weight Weight: 148 lb 5.938 oz Body Mass Index (BMI) 23.9 Physical Exam Narrative Physical Examination: General: Awake, alert, oriented x 3 and cooperative, seated upright in the ED bed, BiPAP still in place, notes feeling significantly improved. Skin: Normal color, normal turgor, no icterus, no cyanosis except occasional stage ecchymoses, abrasion HEENT: AT/NC, EOMI, PERRLA, mildly dry MM with BiPAP in place, difficult to discern carotid bruit given referred sounds from BiPAP, + JVD noted. Lungs: Diminished, greater bases, very mild rales but likely better than previously given significant improvement clinically, BiPAP still in place, now talking in full sentences, no evidence of distress, no current rhonchi or wheezing. Heart: Regular rate and rhythm; no gallop, rub audible,+ SM. Abdomen: Soft, NTTP, ND, distant normal BS, no appreciated HSM. Extremities: No cyanosis, no clubbing, no marked peripheral edema, chronic muscle wasting noted of the left upper extremity Neurological: Patient awake, alert, oriented as noted, cognitive function intact; pupils equally reactive to light and accommodation, cranial nerves grossly normal, moving all 4 extremities, no focal deficits, strength improving, presentation with severely globally decreased strength given acute respiratory distress Psychiatric: Affect appears fatigued, notes respiratory distress significantly improved, still on BiPAP, no acute evidence of depressive or anxiety feelings. Results Lab / Micro Data 12/31/23 18:50 12/31/23 18:50 Labs: Laboratory Results - last 24 hr 12/31/23 18:50: WBC 11.6 H, RBC 4.72, Hgb 14.2, Hct 42.9, MCV 90.9, MCH 30.1, MCHC 33.1, RDW Std Deviation 45.9 H, RDW Coeff of Chhaya 13.7, Plt Count 242, MPV 9.6, Immature Gran % (Auto) 0.600, Neut % (Auto) 74.9 H, Lymph % (Auto) 13.2 L, [place] % (Auto) 8.4, Eos % (Auto) 2.4, Baso % (Auto) 0.5, Absolute Neuts (auto) 8.7 H, Absolute Lymphs (auto) 1.52, Nucleated RBC % 0, Sodium 137, Potassium 3.9, Chloride 107, Carbon Dioxide 25.0, Anion Gap 5, BUN 24 H, Creatinine 1.07, Estim Creat Clear Calc 44.72, Est GFR (MDRD) Af Amer 84, Est GFR (MDRD) Non-Af 70, BUN/Creatinine Ratio 22.4 H, Glucose 139 H, Calcium 8.8, B-Natriuretic Peptide 477.7 H Imaging Radiology Impression Chest X-Ray 12/31/23 19:03 IMPRESSION: Moderate interstitial edema and effusions increased. 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 ED on 12/31/23 with history of shortness of breath ongoing for the last 4 days reporting that he recently discontinued his diuretic with progressively worsening dyspnea since with no chest pain morning recent URI type symptoms including cough, fever, chills, congestion with no marked peripheral edema but given worsening dyspnea prompted transition to the ED to be cautious. #1. Acute Hypoxic Respiratory Failure secondary to Acute Decompensated HFpEF complicated as noted by underlying valvular heart disease as well as pulmonary hypertension: CXR obtained in the ED w/ evidence of volume overload. Patient administered IV lasix in the ED, will admit to PCU given stabilized vital signs to be continued on BiPAP, will maintain on cardiac telemetry, initial troponin pending upon ED request of evaluation of patient, will further obtain cardiac enzyme series, obtain serial EKGs, continue IV lasix diuresis, monitor I/Os, maintain on intake restriction, continue medical therapy with aspirin, given advanced age we will add lower dose statin and initial presentation initially was hypertensive but now BP is lower thus will defer immediate beta-enzo addition especially as prioritizing Lasix at this time, obtain TSH and magnesium level. Most recent ECHO noted 07/31/2023 with mild concentric LVH, LVEF 65%, stage II diastolic dysfunction, severely enlarged LA, mildly enlarged RA, bribed prosthetic MV with mean peak mitral valve gradient 14 mmHg, moderate mitral valve regurgitation, mitral valve mean peak gradient last examination 02/2020 210 mmHg, moderate TV insufficiency. Patient status post recent right sided pleural effusion thoracentesis 12/22/2023 of note but no microbiology on this fluid noted. Given recent effusions, thoracentesis coupled with valvular disease and acute presentation requested repeat ECHO. Cardiology consulted, pending. PT/OT/CM consulted for discharge planning. #2. Hyperglycemia, possibly stress response: Admission glucose 139, will repeat CMP in a.m. and if continues to remain elevated low threshold to further investigate with A1c. #3. PAF: Will continue full-strength aspirin therapy, not chronically anticoagulated but following with cardiology, awaiting their input, not on any rate or rhythm agent but currently in sinus rhythm of note. As noted we will need to consider beta-enzo therapy but prior Lasix at this time given BP now lower. #4. Valvular Heart Disease: Patient with rheumatic heart disease history status post MV bioprosthetic replacement, 07/31/2023 echocardiogram with mild concentric LVH, LVEF 65%, stage II diastolic dysfunction, severely enlarged LA, mildly enlarged RA, bribed prosthetic MV with mean peak mitral valve gradient 14 mmHg, moderate mitral valve regurgitation, mitral valve mean peak gradient last examination 02/2020 210 mmHg, moderate TV insufficiency. Given recent effusions, thoracentesis coupled with valvular disease and acute presentation requested repeat ECHO. #5. Chronic Kidney Disease Stage II based on GFR trending: Admission BUN/Cr 20/1.0, GFR 70, baseline renal function [], repeat BMP in AM. #6. Hypothyroidism: Will continue patient on levothyroxine regimen, TSH and free T4 requested. #7. DVT prophylaxis: Not chronically anticoagulated per review of records secondary to distant history PAF, following with cardiology, will maintain at this time on Lovenox. #8. CODE status: Patient HCPOA and living will are not in place but he notes if necessary he would want his siblings to be his decision makers if necessary. Discussed CODE status at length including difference between FULL code, DNR-CCA and DNR-CC status. Following discussions about the differences in these status, requested Full Code status. Discussed his advanced age and underlying comorbidities and likelihood of good prognosis which he understands and desires to remain a full code. Advanced Care Planning Face to Face Time: 16 minutes. Charges/Coding Visit Charges Inpatient E&M: 74063 Init Hosp L3 Procedures Hospitalists Procedures: 38061 Advncd Care Plan 30 Min
[2023-12-31 20:24] LABS: Troponin-I HS 16 pg/mL (3.0-78.0)
[2023-12-31 21:21] LABS: Magnesium 2.3 mg/dL (1.6-2.6)
--- NOTE | 2023-12-31 21:50 | ECHOD_ITS ---
Reason For Study: CHF Procedure This was a 2D Doppler, Color Flow transthoracic echocardiogram. Exam performed portable in patient room. Left Ventricle Normal LV size. The estimated ejection fraction is 65 %. Unable to assess diastolic dysfunction. No regional wall motion abnormalities noted. Right Ventricle Normal RV size. Normal systolic function. Atria The left atrium is severely enlarged. Normal right atrium. No doppler evidence for ASD. Mitral Valve Mean gradient across the prosthetic valve is 16.5 mmHg. In July 2023 it was 14 mmHg. No mitral valve insufficiency. Stable appearing bioprosthetic mitral valve apparatus. Tricuspid Valve There is no tricuspid stenosis. Mild tricuspid valve insufficiency. Pulmonary artery systolic pressure is 60-65 mmHg. Aortic Valve Trisinus/trileaflet aortic valve. There is no aortic stenosis. No aortic valve insufficiency. Pulmonic Valve There is no pulmonic valvular stenosis. No pulmonic valve insufficiency. Great Vessels Normal aortic root. Pericardium/Pleural No pericardial effusion. MMode/2D Measurements & Calculations LVIDd: 3.3 cm IVSd: 1.0 cm Ao root diam: 3.6 cm LVIDs: 2.5 cm LVPWd: 0.86 cm RVDd: 2.9 cm FS: 24.5 % LAV(MOD-bp): 106.3 ml LVAd ap4: 20.2 cm2 LVAd ap2: 20.9 cm2 LAV(MOD-bp) Indexed: 61.3 ml/m2 LVLd ap4: 6.2 cm LVLd ap2: 7.3 cm LAV(MOD-sp2): 107.1 ml EDV(MOD-sp4): 55.8 ml EDV(MOD-sp2): 52.4 ml LAV(MOD-sp4): 105.0 ml EDV(sp4-el): 55.9 ml EDV(sp2-el): 50.8 ml LVAs ap4: 11.5 cm2 LVAs ap2: 11.3 cm2 LVLs ap4: 5.5 cm LVLs ap2: 6.1 cm ESV(MOD-sp4): 21.5 ml ESV(MOD-sp2): 20.1 ml ESV(sp4-el): 20.6 ml ESV(sp2-el): 17.8 ml EF(MOD-sp4): 61.5 % EF(MOD-sp2): 61.6 % EF(sp4-el): 63.1 % SV(MOD-sp4): 34.3 ml SV(MOD-sp2): 32.3 ml SV(sp4-el): 35.3 ml LA dimension(2D): 5.7 cm LA A4 area: 30.1 cm2 RA A4 area: 13.8 cm2 TAPSE: 1.5 cm Time Measurements MV dec time: 0.42 sec Doppler Measurements & Calculations MV E max brent: 226.7 cm/sec Lat Peak E' Brent: 3.9 cm/sec Med Peak E' Brent: 4.9 cm/sec MV A max brent: 197.6 cm/sec E/E' lat: 58.2 E/E' med: 46.4 MV E/A: 1.1 MV V2 max: 274.6 cm/sec MV P1/2t max brent: 273.1 cm/sec Ao V2 max: 138.5 cm/sec MV max P.3 mmHg MV P1/2t: 170.7 msec Ao max P.7 mmHg MV V2 mean: 194.4 cm/sec MV dec slope: 468.5 cm/sec2 Ao V2 mean: 104.1 cm/sec MV mean P.4 mmHg Ao mean P.8 mmHg MV V2 VTI: 98.8 cm MVA(P1/2t): 1.3 cm2 Ao V2 VTI: 27.0 cm AV (velocity ratio): 0.88 LV V1 max: 113.6 cm/sec PA V2 max: 88.5 cm/sec TR max brent: 386.4 cm/sec LV V1 max P.2 mmHg PA V2 mean: 61.2 cm/sec TR max P.7 mmHg LV V1 mean P.0 mmHg LV V1 mean: 80.6 cm/sec LV V1 VTI: 23.8 cm ECHO/Echo Complete Interpretation Summary The estimated ejection fraction is 65 %. Unable to assess diastolic dysfunction. The left atrium is severely enlarged. Mean gradient across the prosthetic valve is 16.5 mmHg. In July 2023 it was 14 mmHg Ordering Physician: Lucila Matt Referring Physician: Nickolas Taylor Performed By: Isaura Nina, ALE, RVT
[2023-12-31] MEDS: Atorvastatin Calcium 10 MG Tablet PO (22:17)
[2024-01-01 00:43] LABS: Troponin-I HS 158 pg/mL (3.0-78.0)
[2024-01-01 02:24] LABS: International Normalized Ratio 1.1; Prothrombin Time (Protime)PT. 13.8 SECONDS (11.7-14.9)
[2024-01-01 02:25] LABS: Partial Thromboplast Time 34.2 Seconds (24.1-36.2)
[2024-01-01 02:45] LABS: Troponin-I HS 173 pg/mL (3.0-78.0)
[2024-01-01] MEDS: Heparin Injection (Vial) 5,000 UNIT/ML VIAL 4000 UNIT IV (02:59)
[2024-01-01] MEDS: HEPARIN/D5w 25,000 UNITS 25,000 UNITS/250 ML IV.SOLN. 8 UNITS CONT INF (03:11)
[2024-01-01 04:54] VITALS: BP 106/45; PULSE 90; RESP 18; TEMP 36.7; O2SAT 94
[2024-01-01 06:00] VITALS: BMI 22.3
[2024-01-01 06:00] LABS: Absolute Lymphocyte Count 1.67 X10^3/uL (0.83-4.51); Absolute Neutrophil Count 7.7 X10^3/uL (2.0-7.7); Basophil# 0.04 X10^3/uL; Basophil% 0.4 % (0-1); Eosinophil# 0.18 X10^3/uL; Eosinophils% 1.7 % (0-5); Hematocrit 38.1 % (40-54); Hemoglobin 12.7 g/dL (13.0-16.5); Lymphocyte # 1.67 X10^3/ul (0.83-4.51); Lymphocyte % 15.9 % (19-41); Mean Corp Hgb Conc 33.3 g/dL (32-36); Mean Corpuscular Hgb 30.1 pg (27.0-32.0); Mean Corpuscular Volume 90.3 fL (80-94); Mean Platelet Vol. 9.3 fl (6.2-12.0); Monocyte# 0.87 X10^3/uL; Monocyte% 8.3 % (0-10); NRBC Flagged by Analyzer 0 % (0-5); Neutrophil # 7.74 X10^3/uL (2.7-7.7); Neutrophil % 73.4 % (47-70); Platelet Count 227 K/mm3 (150-450); RBC Distribution Width CV 13.7 % (11.6-14.6); RBC Distribution Width SD 45.4 fl (35.1-43.9); Red Blood Count 4.22 M/mm3 (4.6-6.2); White Blood Count 10.5 K/mm3 (4.4-11.0)
[2024-01-01 06:37] LABS: ALB/GLOB Ratio 0.7 RATIO (0.9-2.4); AST(SGOT) 18 U/L (15-37); Alanine Aminotransfer ALT/SGPT 17 U/L (16-61); Albumin, Serum 2.9 g/dL (3.2-5.0); Alkaline Phosphatase 69 U/L (45-117); Anion Gap 6 (5-15); BUN 21 mg/dL (7-18); BUN/Creat Ratio 20.4 RATIO (10-20); Calcium,Total 8.6 mg/dL (8.5-10.1); Chloride 105 mmol/L (98-107); Cholesterol 136 mg/dL (200); Creatinine, Serum 1.03 mg/dL (0.70-1.30); EST Glomerular Filtration Rate 73 mL/min (>60); Est Glom Filt Rate - Afr Amer 88 mL/min (>60); Estimated Creatinine Clearance 47.33 ml/min; Globulin 3.9 g/dL (2.2-4.2); Glucose 107 mg/dL (74-106); High Density Lipoprotein 47 mg/dL; Potassium 3.4 mmol/L (3.5-5.1); Protein, Total 6.8 g/dL (6.4-8.2); Sodium Level 138 mmol/L (136-145); T4 Free Direct 1.21 ng/dL (0.76-1.46); Thyroid Stim Hormone (TSH) 0.61 uIU/mL (0.358-3.74); Triglycerides 42 mg/dL; Troponin-I HS 144 pg/mL (3.0-78.0); Very Low Density Lipoprotein 8 mg/dL (5-40)
[2024-01-01] MEDS: Levothyroxine 75 MCG Tablet PO (08:00)
[2024-01-01 09:20] VITALS: BP 111/63; PULSE 89; RESP 18; TEMP 36.7; O2SAT 92
[2024-01-01] MEDS: Potassium Chloride Oral Tablet 20 MEQ PO (09:20)
[2024-01-01] MEDS: Furosemide 40 MG/4 ML Vial IV ×2 (09:20→17:51)
[2024-01-01] MEDS: 0.9% Saline Lock 10 ML Syringe IV ×2 (09:20→17:51)
[2024-01-01] MEDS: Aspirin 325 MG Tablet PO (09:20)
[2024-01-01 09:54] VITALS: O2SAT 96
[2024-01-01 09:57] LABS: Partial Thromboplast Time 82.6 Seconds (24.1-36.2)
--- NOTE | 2024-01-01 10:11 | PCM.PN.HOSP ---
Subjective Subjective Doing well, no issues overnight. Echo was done this morning read is pending Objective Data Objective Data Vital Signs: Vital Signs Temp Pulse Resp BP Pulse Ox O2 Del Method O2 Flow Rate 98.1 F 89 18 111/63 96 Nasal Cannula 2 01/01/24 09:20 01/01/24 09:20 01/01/24 09:20 01/01/24 09:20 01/01/24 09:54 01/01/24 09:54 01/01/24 09:54 FiO2 35 12/31/23 20:11 Oxygen Flow Rate (L/min) 2 Oxygen Delivery Method Nasal Cannula Weight: 142 lb 10.225 oz Body Mass Index (BMI) 22.3 Intake & Output: Intake and Output for Last 24 Hours 12/31/23 01/01/24 01/02/24 03:59 03:59 03:59 Intake Total 120 / 120 245.87 / 245.87 Output Total 1450 / 1450 750 / 750 Balance -1330 / -1330 -504.13 / -504.13 Lab / Micro Data 01/01/24 05:53 01/01/24 05:53 Labs: Laboratory Results - last 24 hr 12/31/23 18:50: WBC 11.6 H, RBC 4.72, Hgb 14.2, Hct 42.9, MCV 90.9, MCH 30.1, MCHC 33.1, RDW Std Deviation 45.9 H, RDW Coeff of Chhaya 13.7, Plt Count 242, MPV 9.6, Immature Gran % (Auto) 0.600, Neut % (Auto) 74.9 H, Lymph % (Auto) 13.2 L, [place] % (Auto) 8.4, Eos % (Auto) 2.4, Baso % (Auto) 0.5, Absolute Neuts (auto) 8.7 H, Absolute Lymphs (auto) 1.52, Nucleated RBC % 0, PT 13.8, INR 1.1, APTT 34.2, Sodium 137, Potassium 3.9, Chloride 107, Carbon Dioxide 25.0, Anion Gap 5, BUN 24 H, Creatinine 1.07, Estim Creat Clear Calc 44.72, Est GFR (MDRD) Af Amer 84, Est GFR (MDRD) Non-Af 70, BUN/Creatinine Ratio 22.4 H, Glucose 139 H, Calcium 8.8, Magnesium 2.3, Troponin I High Sens 16, B-Natriuretic Peptide 477.7 H 12/31/23 23:49: Troponin I High Sens 158 H* 01/01/24 01:54: Troponin I High Sens 173 H* 01/01/24 05:53: WBC 10.5, RBC 4.22 L, Hgb 12.7 L, Hct 38.1 L, MCV 90.3, MCH 30.1, MCHC 33.3, RDW Std Deviation 45.4 H, RDW Coeff of Chhaya 13.7, Plt Count 227, MPV 9.3, Immature Gran % (Auto) 0.300, Neut % (Auto) 73.4 H, Lymph % (Auto) 15.9 L, [place] % (Auto) 8.3, Eos % (Auto) 1.7, Baso % (Auto) 0.4, Absolute Neuts (auto) 7.7, Absolute Lymphs (auto) 1.67, Nucleated RBC % 0, Sodium 138, Potassium 3.4 L, Chloride 105, Carbon Dioxide 27.0, Anion Gap 6, BUN 21 H, Creatinine 1.03, Estim Creat Clear Calc 47.33, Est GFR (MDRD) Af Amer 88, Est GFR (MDRD) Non-Af 73, BUN/Creatinine Ratio 20.4 H, Glucose 107 H, Calcium 8.6, Total Bilirubin 0.60, AST 18, ALT 17, Alkaline Phosphatase 69, Troponin I High Sens 144 H*, Total Protein 6.8, Albumin 2.9 L, Globulin 3.9, Albumin/Globulin Ratio 0.7 L, Triglycerides 42, Cholesterol 136, LDL Cholesterol 81, VLDL Cholesterol 8, HDL Cholesterol 47, TSH 0.61, Free T4 1.21 01/01/24 09:00: APTT 82.6 H Micro: Microbiology 12/31/23 18:56 Mucosa - Nose SARS-CoV-2, Influenza & RSV (PCR) - Final Radiography Diagnostic Testing: Radiology Impression Chest X-Ray 12/31/23 19:03 IMPRESSION: Moderate interstitial edema and effusions increased. Electronically Signed: Donte Bah MD at 19:55 EDT , Physical Exam Narrative General: Alert, Oriented x3, Cooperative, No apparent distress HEENT: Atraumatic, PERRLA, EOMI, Normocephalic Oral: Moist Mucosa Neck: Supple, No JVD Lungs: Diminished, Normal air movement, No rhonchi, No wheeze, No rales Cardiovascular: Regular rate, Regular Rhythm, Normal S1, Normal S2, No murmurs Abdomen: Soft, Non Tender, Non-Distended, No Hepato-splenomegaly Extremities: Slight edema, Capillary Refill Less than 3 Seconds Skin: No rashes, No breakdown Musculoskeletal: No Tenderness to Palpation of Joints or Extremities Neurological: No focal neurological deficits, Motor Exam 5/5 strength throughout, Sensory exam intact to light touch and pain Psych/Mental Status: Normal Affect, Appropriate Assessment & Plan Assessment/Plan (1) Acute exacerbation of chronic heart failure: PLAN: Plan 1. Acute hypoxic respiratory failure secondary to acute on chronic diastolic CHF/pulmonary hypertension/paroxysmal A-fib ? Echo is pending, he had 1 on 07/31/2023 with an EF of 65% stage II diastolic dysfunction with moderate mitral valve regurgitation with an RVSP of 58 mmHg ? Continue with aggressive diuresis ? Appreciate cardiology's assistance ? He did have a slight elevation in his troponin likely secondary to his baseline heart failure combined with his hypoxia we will discontinue heparin drip and await cardiology's evaluation as he does not have any chest pain and nonischemic EKG 2. Hypothyroidism ? Stable. TSH of 0.61 ? Continue with Synthroid DVT: Lovenox Charges/Coding Visit Charges Inpatient E&M: 23950 Subs Hosp L2
--- NOTE | 2024-01-01 11:54 | CASEMGMT ---
RN CM Face to Face with patient for initial transition planning/care coordination assessment. RN CM introduced self and role at [facility]. Patient sitting in chair, alert and oriented. Patient willing to participate in assessment and is able to answer all questions appropriately. Care providers, pharmacy, and demographics verified. Lace: 7 Strata: 2 PCP: Brandon Specialists: [facility] Preferred Pharmacy: [facility] Insurance: doubleTwist [facility] Prescription Benefit: yes Living Will/HPOA: none LNOK: Brother Living Arrangements: Patient lives alone on the first floor of a duplex, with 2-4 steps to enter. Patient is independent at home. Transportation: self, friend DME/HHC: Patient denies DME in the home. No previous HHC or SNF. Patient wishes to discharge home, denies need for home health at this time. Patient states he has no further needs or concerns at this time. CM to follow for discharge planning needs that may arise. Disposition Plan: Patient to discharge home with family support and follow-up plans in place. Shruthi GONSALEZ, RN, CM
[2024-01-01 15:20] VITALS: BP 99/76; PULSE 87; RESP 18; TEMP 37.1; O2SAT 99
--- NOTE | 2024-01-01 15:29 | PCM.CONS.C ---
Assessment & Plan Assessment/Plan (1) Acute exacerbation of chronic heart failure: PLAN: EF is preserved. Heart failure is improved. Reasonable to discontinue the IV Lasix and switch to Bumex at 2 mg p.o. daily. (2) History of mitral valve replacement with bioprosthetic valve: (3) Paroxysmal atrial fibrillation: HPI Consult Data Date of Consult: 01/01/24 HPI Narrative Reason for Consultation: Shortness of breath HPI Narrative: FUAD PURVIS, is a 88 M who presents with shortness of breath after stopping his daily dose of Lasix as he felt that he was having some side effects due to it. Patient was given IV Lasix and his symptoms have improved and he feels he is back to baseline. He was asking if there are alternatives to Lasix. He denies any chest pain. Review of systems: All systems reviewed. All else is negative except in HPI PFSH Medical History Hypothyroid Hypogonadism Rheumatic tricuspid insufficiency Paroxysmal atrial fibrillation Rheumatic aortic stenosis Pulmonary HTN Tricuspid regurgitation Mitral valve stenosis, rheumatic Home Medications ?Medication ?Instructions ?Recorded ?Last Taken ?Type levothyroxine 75 mcg tablet 75 mcg PO DAILY 08/27/13 08/26/13 History aspirin 325 mg tablet 325 mg PO DAILY 06/04/19 Unknown History furosemide 40 mg tablet (Lasix) 40 mg PO DAILY #90 tabs 10/09/23 Unknown Rx potassium chloride 10 mEq 20 meq (2 x 10 mEq) PO DAILY #180 12/08/23 Unknown Rx tablet,extended release tabs Allergy/AdvReac Type Severity Reaction Status Date / Time alendronate sodium (From Allergy Unknown Verified 09/01/23 08:21 Fosamax) Family History (Updated 12/31/23 @ 21:[address] Lucila Matt MD) Father Colon cancer Sister FH: mitral valve repair Mother No problems noted. Surgical History History of mitral valve replacement with bioprosthetic valve (~10/20/13) History of left heart catheterization (LHC) History of mitral valve replacement (10/20/13) Social History Smoking Status: Never smoker alcohol intake: never substance use type: does not use caffeine: No what type of physical activity do you participate in: none seatbelt use: always do you feel safe at home: Yes Physical Exam Const alert and oriented x3 HEENT normocephalic Eyes no scleral icterus Chest Chest Narrative: Minimal bibasal crackles Resp normal respiratory effort Cardio regular rate Extremity no pedal edema Risk Stratification Risk Stratification Applicable: No Charges/Coding Visit Charges Inpatient E&M: 42982 Init Hosp L2 Objective Data Vital Signs: Vital Signs Temp Pulse Resp BP Pulse Ox O2 Del Method O2 Flow Rate 98.1 F 89 18 111/63 96 Nasal Cannula 2 01/01/24 09:20 01/01/24 09:20 01/01/24 09:20 01/01/24 09:20 01/01/24 09:54 01/01/24 14:00 01/01/24 14:00 FiO2 35 12/31/23 20:11 Oxygen Flow Rate (L/min) 2 Oxygen Delivery Method Nasal Cannula Weight: 142 lb 10.225 oz Body Mass Index (BMI) 22.3 Intake & Output: Intake and Output for Last 24 Hours 12/30/23 12/31/23 01/01/24 23:59 23:59 23:59 Intake Total 120 / 120 615.87 / 615.87 Output Total 1450 / 1450 1600 / 1600 Balance -1330 / -1330 -984.13 / -984.13 Lab / Micro Data 01/01/24 05:53 01/01/24 05:53 Labs: Laboratory Results - last 24 hr 12/31/23 18:50: WBC 11.6 H, RBC 4.72, Hgb 14.2, Hct 42.9, MCV 90.9, MCH 30.1, MCHC 33.1, RDW Std Deviation 45.9 H, RDW Coeff of Chhaya 13.7, Plt Count 242, MPV 9.6, Immature Gran % (Auto) 0.600, Neut % (Auto) 74.9 H, Lymph % (Auto) 13.2 L, [place] % (Auto) 8.4, Eos % (Auto) 2.4, Baso % (Auto) 0.5, Absolute Neuts (auto) 8.7 H, Absolute Lymphs (auto) 1.52, Nucleated RBC % 0, PT 13.8, INR 1.1, APTT 34.2, Sodium 137, Potassium 3.9, Chloride 107, Carbon Dioxide 25.0, Anion Gap 5, BUN 24 H, Creatinine 1.07, Estim Creat Clear Calc 44.72, Est GFR (MDRD) Af Amer 84, Est GFR (MDRD) Non-Af 70, BUN/Creatinine Ratio 22.4 H, Glucose 139 H, Calcium 8.8, Magnesium 2.3, Troponin I High Sens 16, B-Natriuretic Peptide 477.7 H 12/31/23 23:49: Troponin I High Sens 158 H* 01/01/24 01:54: Troponin I High Sens 173 H* 01/01/24 05:53: WBC 10.5, RBC 4.22 L, Hgb 12.7 L, Hct 38.1 L, MCV 90.3, MCH 30.1, MCHC 33.3, RDW Std Deviation 45.4 H, RDW Coeff of Chhaya 13.7, Plt Count 227, MPV 9.3, Immature Gran % (Auto) 0.300, Neut % (Auto) 73.4 H, Lymph % (Auto) 15.9 L, [place] % (Auto) 8.3, Eos % (Auto) 1.7, Baso % (Auto) 0.4, Absolute Neuts (auto) 7.7, Absolute Lymphs (auto) 1.67, Nucleated RBC % 0, Sodium 138, Potassium 3.4 L, Chloride 105, Carbon Dioxide 27.0, Anion Gap 6, BUN 21 H, Creatinine 1.03, Estim Creat Clear Calc 47.33, Est GFR (MDRD) Af Amer 88, Est GFR (MDRD) Non-Af 73, BUN/Creatinine Ratio 20.4 H, Glucose 107 H, Calcium 8.6, Total Bilirubin 0.60, AST 18, ALT 17, Alkaline Phosphatase 69, Troponin I High Sens 144 H*, Total Protein 6.8, Albumin 2.9 L, Globulin 3.9, Albumin/Globulin Ratio 0.7 L, Triglycerides 42, Cholesterol 136, LDL Cholesterol 81, VLDL Cholesterol 8, HDL Cholesterol 47, TSH 0.61, Free T4 1.21 01/01/24 09:00: APTT 82.6 H Micro: Microbiology 12/31/23 18:56 Mucosa - Nose SARS-CoV-2, Influenza & RSV (PCR) - Final Cardiology Labs/Tests 12/31/23 18:50: WBC 11.6 H, RBC 4.72, Hgb 14.2, Hct 42.9, MCV 90.9, MCH 30.1, MCHC 33.1, Plt Count 242, MPV 9.6, Immature Gran % (Auto) 0.600, Neut % (Auto) 74.9 H, Lymph % (Auto) 13.2 L, [place] % (Auto) 8.4, Eos % (Auto) 2.4, Baso % (Auto) 0.5, Absolute Neuts (auto) 8.7 H, Nucleated RBC % 0, PT 13.8, INR 1.1, APTT 34.2, Sodium 137, Potassium 3.9, Chloride 107, Carbon Dioxide 25.0, Anion Gap 5, BUN 24 H, Creatinine 1.07, Est GFR (MDRD) Af Amer 84, Est GFR (MDRD) Non-Af 70, BUN/Creatinine Ratio 22.4 H, Glucose 139 H, Calcium 8.8, Magnesium 2.3, B-Natriuretic Peptide 477.7 H 01/01/24 05:53: WBC 10.5, RBC 4.22 L, Hgb 12.7 L, Hct 38.1 L, MCV 90.3, MCH 30.1, MCHC 33.3, Plt Count 227, MPV 9.3, Immature Gran % (Auto) 0.300, Neut % (Auto) 73.4 H, Lymph % (Auto) 15.9 L, [place] % (Auto) 8.3, Eos % (Auto) 1.7, Baso % (Auto) 0.4, Absolute Neuts (auto) 7.7, Nucleated RBC % 0, Sodium 138, Potassium 3.4 L, Chloride 105, Carbon Dioxide 27.0, Anion Gap 6, BUN 21 H, Creatinine 1.03, Est GFR (MDRD) Af Amer 88, Est GFR (MDRD) Non-Af 73, BUN/Creatinine Ratio 20.4 H, Glucose 107 H, Calcium 8.6, Total Bilirubin 0.60, Triglycerides 42, Cholesterol 136, LDL Cholesterol 81, VLDL Cholesterol 8, HDL Cholesterol 47 01/01/24 09:00: APTT 82.6 H Rhythm: EKG: ECHO: Stress Test: Cardiac Cath: PCI: CT Surgery: Holter monitor: EPS: PPM: CXR: Chest CT Scan: Radiography Diagnostic Testing: Radiology Impression Chest X-Ray 12/31/23 19:03 IMPRESSION: Moderate interstitial edema and effusions increased. Electronically Signed: Donte Bah MD at 19:55 EDT , Echocardiogram 12/31/23 21:50 Interpretation Summary The estimated ejection fraction is 65 %. Unable to assess diastolic dysfunction. The left atrium is severely enlarged. Mean gradient across the prosthetic valve is 16.5 mmHg. In July 2023 it was 14 mmHg Ordering Physician: Lucila Matt Referring Physician: Nickolas Taylor Performed By: Isaura Nina, RDCS, RVT
[2024-01-01] MEDS: Atorvastatin Calcium 10 MG Tablet PO (19:53)
[2024-01-01 21:20] VITALS: BP 105/66; PULSE 87; RESP 18; TEMP 35.8; O2SAT 96
[2024-01-02] VITALS (8 sets, daily range): BP systolic 94–120; BP diastolic 53–66; PULSE 77–99; RESP 14–16; TEMP 35.9–36.8; O2SAT 87–98; BMI 22.1
[2024-01-02] MEDS: Levothyroxine 75 MCG Tablet PO (04:48)
[2024-01-02 06:50] LABS: Absolute Lymphocyte Count 1.42 X10^3/uL (0.83-4.51); Absolute Neutrophil Count 7.1 X10^3/uL (2.0-7.7); Basophil# 0.04 X10^3/uL; Basophil% 0.4 % (0-1); Eosinophil# 0.26 X10^3/uL; Eosinophils% 2.7 % (0-5); Hematocrit 37.8 % (40-54); Hemoglobin 12.7 g/dL (13.0-16.5); Lymphocyte # 1.42 X10^3/ul (0.83-4.51); Lymphocyte % 14.6 % (19-41); Mean Corp Hgb Conc 33.6 g/dL (32-36); Mean Corpuscular Hgb 30.4 pg (27.0-32.0); Mean Corpuscular Volume 90.4 fL (80-94); Mean Platelet Vol. 9.8 fl (6.2-12.0); Monocyte# 0.92 X10^3/uL; Monocyte% 9.4 % (0-10); NRBC Flagged by Analyzer 0 % (0-5); Neutrophil # 7.06 X10^3/uL (2.7-7.7); Neutrophil % 72.5 % (47-70); Platelet Count 244 K/mm3 (150-450); RBC Distribution Width CV 13.6 % (11.6-14.6); RBC Distribution Width SD 44.8 fl (35.1-43.9); Red Blood Count 4.18 M/mm3 (4.6-6.2); White Blood Count 9.7 K/mm3 (4.4-11.0)
[2024-01-02 07:20] LABS: Anion Gap 7 (5-15); BUN 27 mg/dL (7-18); BUN/Creat Ratio 23.9 RATIO (10-20); Chloride 104 mmol/L (98-107); Creatinine, Serum 1.13 mg/dL (0.70-1.30); EST Glomerular Filtration Rate 65 mL/min (>60); Est Glom Filt Rate - Afr Amer 79 mL/min (>60); Estimated Creatinine Clearance 42.94 ml/min; Glucose 96 mg/dL (74-106); Potassium 3.2 mmol/L (3.5-5.1); Sodium Level 137 mmol/L (136-145)
--- NOTE | 2024-01-02 08:34 | PN.HOSP_ITS ---
Subjective Subjective Doing well, no issues overnight Objective Data Objective Data Vital Signs: Vital Signs Temp Pulse Resp BP Pulse Ox O2 Del Method O2 Flow Rate 96.6 F L 99 16 104/64 95 Nasal Cannula 2 01/02/24 03:20 01/02/24 03:20 01/02/24 03:20 01/02/24 03:20 01/02/24 03:20 01/02/24 03:20 01/02/24 03:20 FiO2 35 12/31/23 20:11 Oxygen Flow Rate (L/min) 2 Oxygen Delivery Method Nasal Cannula Weight: 142 lb 10.225 oz Body Mass Index (BMI) 22.3 Intake & Output: Intake and Output for Last 24 Hours 01/01/24 01/02/24 01/03/24 03:59 03:59 03:59 Intake Total 120 / 120 1125.87 / 1125.87 Output Total 1450 / 1450 2875 / 2875 200 / 200 Balance -1330 / -1330 -1749.13 / -1749.13 -200 / -200 Lab / Micro Data 01/02/24 06:01 01/02/24 06:00 Labs: Laboratory Results - last 24 hr 01/01/24 09:00: APTT 82.6 H 01/02/24 06:00: Sodium 137, Potassium 3.2 L, Chloride 104, Carbon Dioxide 26.0, Anion Gap 7, BUN 27 H, Creatinine 1.13, Estim Creat Clear Calc 42.94, Est GFR (MDRD) Af Amer 79, Est GFR (MDRD) Non-Af 65, BUN/Creatinine Ratio 23.9 H, Glucose 96, Calcium 9.0 01/02/24 06:01: WBC 9.7, RBC 4.18 L, Hgb 12.7 L, Hct 37.8 L, MCV 90.4, MCH 30.4, MCHC 33.6, RDW Std Deviation 44.8 H, RDW Coeff of Chhaya 13.6, Plt Count 244, MPV 9.8, Immature Gran % (Auto) 0.400, Neut % (Auto) 72.5 H, Lymph % (Auto) 14.6 L, [place] % (Auto) 9.4, Eos % (Auto) 2.7, Baso % (Auto) 0.4, Absolute Neuts (auto) 7.1, Absolute Lymphs (auto) 1.42, Nucleated RBC % 0 Micro: Microbiology 12/31/23 18:56 Mucosa - Nose SARS-CoV-2, Influenza & RSV (PCR) - Final Radiography Diagnostic Testing: Radiology Impression Echocardiogram 12/31/23 21:50 Interpretation Summary The estimated ejection fraction is 65 %. Unable to assess diastolic dysfunction. The left atrium is severely enlarged. Mean gradient across the prosthetic valve is 16.5 mmHg. In July 2023 it was 14 mmHg Ordering Physician: Lucila Matt Referring Physician: Nickolas Taylor Performed By: Isaura Nina, ALE, RVT Physical Exam Narrative General: Alert, Oriented x3, Cooperative, No apparent distress HEENT: Atraumatic, PERRLA, EOMI, Normocephalic Oral: Moist Mucosa Neck: Supple, No JVD Lungs: Diminished, Normal air movement, No rhonchi, No wheeze, No rales Cardiovascular: Regular rate, Regular Rhythm, Normal S1, Normal S2, No murmurs Abdomen: Soft, Non Tender, Non-Distended, No Hepato-splenomegaly Extremities: No edema, Capillary Refill Less than 3 Seconds Skin: No rashes, No breakdown Musculoskeletal: No Tenderness to Palpation of Joints or Extremities Neurological: No focal neurological deficits, Motor Exam 5/5 strength throughout, Sensory exam intact to light touch and pain Psych/Mental Status: Normal Affect, Appropriate Assessment & Plan Assessment/Plan (1) Acute exacerbation of chronic heart failure: PLAN: Plan 1. Acute hypoxic respiratory failure secondary to acute on chronic diastolic CHF/pulmonary hypertension/paroxysmal A-fib ? Echo with a PASP of 60 to 65 mmHg and EF of 65% ? Continue with aggressive diuresis, will transition to p.o. Bumex today per cardiology's recommendation ? Appreciate cardiology's assistance ? Troponin elevation due to hypoxia ? Will obtain an ambulatory pulse ox to see where we are at in terms of his diuresis 2. Hypothyroidism ? Stable. TSH of 0.61 ? Continue with Synthroid DVT: Lovenox Charges/Coding Visit Charges Inpatient E&M: 69833 Subs Hosp L2
[2024-01-02] MEDS: Bumetanide 2 MG Tablet PO (09:39)
[2024-01-02] MEDS: Aspirin 325 MG Tablet PO (09:39)
[2024-01-02] MEDS: Enoxaparin 40 MG/0.4 ML Syringe SC (09:39)
[2024-01-02] MEDS: Potassium Chloride Oral Tablet 20 MEQ PO (09:39)
[2024-01-02] MEDS: 0.9% Saline Lock 10 ML Syringe IV (12:34)
--- NOTE | 2024-01-02 15:20 | CASEMGMT ---
RN CM in to discuss needs at discharge. Patient denies HHC or therapy at discharge. Discussed possible Home oxygen at discharge. Patient states he prefers [employer]. Patient denies further needs or concerns. Green sheet placed on chart.
--- NOTE | 2024-01-02 18:28 | NURSING ---
Reviewed and agreed on charting with Lacie Mcguire RN
[2024-01-02] MEDS: Atorvastatin Calcium 10 MG Tablet PO (20:49)
[2024-01-03] VITALS (7 sets, daily range): BP systolic 103–106; BP diastolic 60–68; PULSE 82–89; RESP 17–18; TEMP 36.8–36.9; O2SAT 89–96; BMI 21.8
--- NOTE | 2024-01-03 04:29 | CPS ---
pt contemplated wearing bipap, decided he really does not want to. Pt does not have bipap at home
[2024-01-03 06:07] LABS: Absolute Neutrophil Count 5.8 X10^3/uL (2.0-7.7); Basophil# 0.06 X10^3/uL; Basophil% 0.7 % (0-1); Eosinophil# 0.36 X10^3/uL; Eosinophils% 4.3 % (0-5); Hematocrit 37.5 % (40-54); Hemoglobin 12.4 g/dL (13.0-16.5); Lymphocyte % 15.5 % (19-41); Mean Corp Hgb Conc 33.1 g/dL (32-36); Mean Corpuscular Hgb 30.2 pg (27.0-32.0); Mean Corpuscular Volume 91.2 fL (80-94); Mean Platelet Vol. 9.5 fl (6.2-12.0); Monocyte# 0.84 X10^3/uL; NRBC Flagged by Analyzer 0 % (0-5); Neutrophil # 5.81 X10^3/uL (2.7-7.7); Neutrophil % 69.1 % (47-70); Platelet Count 237 K/mm3 (150-450); RBC Distribution Width CV 13.6 % (11.6-14.6); RBC Distribution Width SD 45.4 fl (35.1-43.9); Red Blood Count 4.11 M/mm3 (4.6-6.2); White Blood Count 8.4 K/mm3 (4.4-11.0)
[2024-01-03] MEDS: Levothyroxine 75 MCG Tablet PO (06:07)
[2024-01-03 06:58] LABS: Anion Gap 6 (5-15); BUN 27 mg/dL (7-18); BUN/Creat Ratio 25.2 RATIO (10-20); Chloride 107 mmol/L (98-107); Creatinine, Serum 1.07 mg/dL (0.70-1.30); EST Glomerular Filtration Rate 70 mL/min (>60); Est Glom Filt Rate - Afr Amer 84 mL/min (>60); Glucose 95 mg/dL (74-106); Potassium 3.5 mmol/L (3.5-5.1); Sodium Level 140 mmol/L (136-145)
[2024-01-03] MEDS: Potassium Chloride Oral Tablet 20 MEQ PO (08:28)
[2024-01-03] MEDS: Aspirin 325 MG Tablet PO (08:29)
[2024-01-03] MEDS: 0.9% Saline Lock 10 ML Syringe IV (08:38)
[2024-01-03] MEDS: Senna/Docusate Sodium 1 Tablet 2 TABLET PO (09:04)
[2024-01-03] MEDS: Enoxaparin 40 MG/0.4 ML Syringe SC (10:37)
[2024-01-03] MEDS: Bumetanide 2 MG Tablet PO (10:37)
--- NOTE | 2024-01-03 11:26 | DCINST_ITS ---
Discharge Instructions Diet Discharge Diet: Low fat / Low cholesterol and 6 Cup Fluid Restriction Activity Discharge Activity: Return to Normal Activity Dressing / Incision Call your doctor if you observe: Fever of 101 or Higher, Shortness of breath, Dizziness, Fainting spells, Swelling in the ankles, Chest pain and Increased palpitations (irregular heartbeat) Follow Up Care Test Results: Test results from this visit will be discussed in further detail at your follow- up appointment, if applicable. Discharge Plan Admission Admit Date/Time: 12/31/23 20:55 Attending Provider: Jose Luna Primary Care Provider: Nickolas Taylor Consulting Providers: Carlo Winslow; Lucila Matt Instructions Additional Instructions / Restrictions: Follow-up with your PCP in 3 to 5 days to monitor your kidney function since you have been transitioned to Bumex which is a diuretic Discharge Orders/Prescriptions Prescriptions: New bumetanide 2 mg Tablet 2 mg PO DAILY 30 Days Qty: 30 0RF Continued levothyroxine 75 MCG tablet 75 mcg PO DAILY Patient Comments: thyroid aspirin 325 mg tablet 325 mg PO DAILY potassium chloride 10 mEq tablet extended release 20 meq PO DAILY Qty: 180 3RF Discontinued furosemide [Lasix] 40 mg tablet 40 mg PO DAILY Qty: 90 3RF Patient Comments: stopped taking this past friday12/29/23 Referrals / Follow Up: Nickolas Taylor MD [Primary Care Provider] - Within 1 Week Disposition Disposition (needs filled in before D/C Order can be placed): Home, Self Care
--- NOTE | 2024-01-03 14:53 | DS.PCM_ITS ---
Providers Date of Admission: 12/31/23 Primary Care Physician: Dr. Nickolas Taylor MD Consultations 12/31/23 21:50 Consult: Cardiology Routine Consulting Provider: Carlo Winslow Reason for Consult: HF exac, underlying notable valve disease EMERGENT Consult: No MD Notified: Yes Date Notified: 12/31/23 Time Notified: 21:01 Method of Notification: Text Reason For Visit: ARF, HF EXACERBATION Diagnosis Discharge Diagnosis (1) Acute exacerbation of chronic heart failure: Status: Acute Code(s): I50.9 - Heart failure, unspecified Medications at Discharge Home Medications levothyroxine 75 mcg tablet 75 mcg PO DAILY thyroid 08/27/13 aspirin 325 mg tablet 325 mg PO DAILY antiplatelet 06/04/19 potassium chloride 10 mEq tablet,extended release 20 meq (2 x 10 mEq) PO DAILY supplement #180 tabs 12/08/23 bumetanide 2 mg tablet 2 mg PO DAILY 30 days #30 tabs 01/03/24 Hospital Course Operations None Procedures 2-D Echocardiogram Summary of Care Provided Minutes Spent on Discharge: 36 Hospital Course: Per HPI: The patient is an 88 y/o M w/ PMHx: 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 Workup in the ED included T97.2, heart 112, respiratory rate 26, initially 81% on room air improving transiently to 91% on 5 L eventually placed on BiPAP with 35% FiO2 with most recent repeat vital signs T98, heart rate 100, BP 105/61, respiratory rate 30, 96% on BiPAP, CBC with WC 11.6, hematin 14.2, MCV 90.9, platelet 242 with left shift, BMP with BUN/creatinine 24/1.07, GFR 70, glucose 139, BNP 477.7, respiratory ED rapid panel pending upon evaluation, troponin pending upon evaluation, chest x-ray with moderate exertional edema and effusions, EKG with sinus tachycardia with no acute evidence of ischemia. In the ED patient administered IV Lasix with Vanessa placed and transitioned on BiPAP as noted. Patient notes he feels considerably improved following BiPAP initiation and IV Lasix diuresis. He is able to talk in full sentences and is asking even to have the BiPAP off. He notes that he recently stopped his diuretic because he still felt short of breath and thought this may be the cause unfortunately but did not notify cardiology at all. He states he has a visit with cardiology 01/01/2024. Hospital Course: 1. Acute hypoxic respiratory failure secondary to acute on chronic diastolic CHF pulmonary hypertension and paroxysmal A-fib?88-year-old male with a history of severe mitral valve stenosis presented to the hospital with increasing shortness of breath. He had discontinued his Lasix because he thought this was causing his shortness of breath. 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 Had multiple educational sessions with him unclear whether or not he has a full understanding as to what he needs to do from his volume status perspective. We did switch him to Bumex 2 mg p.o. daily per cardiology's recommendations and he was able to diurese very well and did not require oxygen on discharge. Repeat echo does demonstrate impaired EF of 65% with a PASP of 60 to 65 mmHg. His mitral valve gradient is 16 up from 14 back in July, when he had his surgery back in 2013 his gradient was 23. I do recommend that he follow-up with cardiology as an outpatient for monitoring of his mitral valve, unclear if he would be a candidate for a second valve he has significant fear that his valve is getting worse and nothing will help him unless he has another valve replacement. I discussed with him the need to follow-up with his PCP in 3 to 5 days to monitor his renal function given the Bumex. And we did discuss the role for a fluid restriction. On the day of discharge he was -2.5 L and down approximately 4 pounds. Physical Exam Narrative General: Alert, Oriented x3, Cooperative, No apparent distress HEENT: Atraumatic, PERRLA, EOMI, Normocephalic Oral: Moist Mucosa Neck: Supple, No JVD Lungs: Diminished, Normal air movement, No rhonchi, No wheeze, No rales Cardiovascular: Regular rate, Regular Rhythm, Normal S1, Normal S2, murmur Abdomen: Soft, Non Tender, Non-Distended, No Hepato-splenomegaly Extremities: No edema, Capillary Refill Less than 3 Seconds Skin: No rashes, No breakdown Musculoskeletal: No Tenderness to Palpation of Joints or Extremities Neurological: No focal neurological deficits, Motor Exam 5/5 strength throughout, Sensory exam intact to light touch and pain Psych/Mental Status: Normal Affect, Appropriate Weight / BMI Weight Weight: 139 lb 5.314 oz Body Mass Index (BMI) 21.8 ABG / Lab / Microbiology Data 01/03/24 05:38 01/03/24 05:38 Laboratory: Laboratory Results - last 24 hr 01/03/24 05:38: WBC 8.4, RBC 4.11 L, Hgb 12.4 L, Hct 37.5 L, MCV 91.2, MCH 30.2, MCHC 33.1, RDW Std Deviation 45.4 H, RDW Coeff of Chhaya 13.6, Plt Count 237, MPV 9.5, Immature Gran % (Auto) 0.400, Neut % (Auto) 69.1, Lymph % (Auto) 15.5 L, [place] % (Auto) 10.0, Eos % (Auto) 4.3, Baso % (Auto) 0.7, Absolute Neuts (auto) 5.8, Absolute Lymphs (auto) 1.30, Nucleated RBC % 0, Sodium 140, Potassium 3.5, Chloride 107, Carbon Dioxide 27.0, Anion Gap 6, BUN 27 H, Creatinine 1.07, Estim Creat Clear Calc 44.30, Est GFR (MDRD) Af Amer 84, Est GFR (MDRD) Non-Af 70, B UN/Creatinine Ratio 25.2 H, Glucose 95, Calcium 9.0 Microbiology: Microbiology 12/31/23 18:56 Mucosa - Nose SARS-CoV-2, Influenza & RSV (PCR) - Final D/C Instructions Discharge Diet: Low fat / Low cholesterol and 6 Cup Fluid Restriction Call your doctor if you observe: Fever of 101 or Higher, Shortness of breath, Dizziness, Fainting spells, Swelling in the ankles, Chest pain and Increased palpitations (irregular heartbeat) Meaningful Use Info Meaningful Use Meaningful Use Diagnoses (Choose all that apply): None applicable Ischemic Stroke Statin Dosing Therapy Reference: STATIN DOSE THERAPY REFERENCE: * Patients > 75 years receive moderate or high dose statin therapy. * Patients 75 years or YOUNGER should receive HIGH intensity statin dose unless contraindicated. You will be required to document reason for non-treatment if statin daily dose does not meet guidelines. HIGH DOSE STATIN THERAPY DAILY Atorvastatin > than or = to 40 mg Rosuvastatin > than or = to 20 mg Amlodipine + Atorvastatin > than or = to 2.5/40 mg Ezetimibe + Simvastatin 10/80 mg Simvastatin 80mg Discharge Plan Admission Admit Date/Time: 12/31/23 20:55 Attending Provider: Jose Luna Primary Care Provider: Nickolas Taylor Consulting Providers: Carlo Winslow; Lucila Matt Instructions Additional Instructions / Restrictions: Follow-up with your PCP in 3 to 5 days to monitor your kidney function since you have been transitioned to Bumex which is a diuretic Discharge Orders/Prescriptions Prescriptions: New bumetanide 2 mg Tablet 2 mg PO DAILY 30 Days Qty: 30 0RF Continued levothyroxine 75 MCG tablet 75 mcg PO DAILY Patient Comments: thyroid aspirin 325 mg tablet 325 mg PO DAILY potassium chloride 10 mEq tablet extended release 20 meq PO DAILY Qty: 180 3RF Discontinued furosemide [Lasix] 40 mg tablet 40 mg PO DAILY Qty: 90 3RF Patient Comments: stopped taking this past friday12/29/23 Referrals / Follow Up: Nickolas Taylor MD [Primary Care Provider] - Within 1 Week Disposition Disposition (needs filled in before D/C Order can be placed): Home, Self Care Charges/Coding Visit Charges Inpatient E&M: 30481 Disch Hosp >30min
== END 2024-01-03 13:51 | disposition home or self-care (01) | DRG 291 ==
LOC: ED 20:41 → PCU 21:04
PROVIDERS: Admitting Provider Family Medicine; Emergency Provider Emergency Medicine; PCP Family Medicine; Visit Provider Family Medicine
DX: I13.0 Hypertensive heart and chronic kidney disease with heart failure and stage 1 through stage 4 chronic kidney disease, or unspecified chronic kidney disease (principal); J96.01 Acute respiratory failure with hypoxia; I50.33 Acute on chronic diastolic (congestive) heart failure; I24.89 Other forms of acute ischemic heart disease; I27.20 Pulmonary hypertension, unspecified; E03.9 Hypothyroidism, unspecified; I34.0 Nonrheumatic mitral (valve) insufficiency; I48.0 Paroxysmal atrial fibrillation; N18.2 Chronic kidney disease, stage 2 (mild); R73.9 Hyperglycemia, unspecified; Z79.83 Long term (current) use of bisphosphonates; Z95.2 Presence of prosthetic heart valve
CPT/HCPCS: 36415; 51702; 71045; 80048; 80053; 80061; 83735; 83880; 84439; 84443; 84484; 85025; 85610; 85730; 87631; 93005; 93306; 94002; 94668; 94762; 97116; 97162; 97166; 97535; 97802; 99285; A4216; J1940

== ENCOUNTER → 2024-01-07 | Outpatient (CLI) | payer MEDICARE, SELFPAY ==
--- NOTE | 2024-01-07 13:48 | RAD_ITS ---
STUDY: X-RAY CHEST REASON FOR EXAM: Male, 88 years old. PRUETT TECHNIQUE: PA and lateral views of the chest. COMPARISON: 12/31/2023 FINDINGS: Status post median sternotomy with heart valve replacement. The lungs are clear and expanded. Moderate bilateral pleural effusions with bibasilar atelectasis. There is moderate cardiac enlargement. Normal mediastinum and margot. There is prominence of the pulmonary hilar arteries and peripheral pulmonary arteries, consistent with congestive heart failure (CHF). Normal visualized aortic arch and descending thoracic aorta. Normal visualized thoracic spine. Normal visualized ribs, clavicles, and shoulders. There is no demonstrated abnormality of the visualized soft tissue structures of the upper abdomen. RAD/Chest PA and Lateral IMPRESSION: Mild congestive heart failure with moderate bilateral pleural effusions. Electronically Signed: Saud Glass MD at 11:52 EDT ,
== END | disposition home or self-care (01) ==
LOC: RAD 13:44
PROVIDERS: PCP Family Medicine; Referring Provider Physician Assistant Medical; Visit Provider Physician Assistant Medical
DX: I50.30 Unspecified diastolic (congestive) heart failure (principal); J90 Pleural effusion, not elsewhere classified; R06.09 Other forms of dyspnea
CPT/HCPCS: 71046

== ENCOUNTER 2024-01-08 01:05 | Emergency (ER) | payer MEDICARE, SELFPAY ==
[2024-01-08] VITALS (32 sets, daily range): BP systolic 77–194; BP diastolic 54–110; PULSE 85–157; RESP 12–34; TEMP 36.1–36.6; O2SAT 85–98; BMI 22.6
--- NOTE | 2024-01-08 01:35 | RAD_ITS ---
EXAM: XR CHEST, 2 VIEWS CLINICAL INDICATION: dyspnea TECHNIQUE: Frontal and lateral views of the chest. COMPARISON: Two-view chest 01/07/2024 FINDINGS: LUNGS AND PLEURAL SPACES: Moderate pleural effusions and bilateral lower lobe airspace disease. No pneumothorax. HEART: Unremarkable. Cardiac silhouette not enlarged. MEDIASTINUM: Surgical changes of the mediastinum. BONES/JOINTS: Unremarkable. No acute fracture. SOFT TISSUES: Unremarkable. RAD/Chest PA and Lateral IMPRESSION: Moderate pleural effusions and bilateral lower lobe airspace disease. Findings may indicate atelectasis or pneumonia. Electronically Signed: Heron Gardner MD at 2:22 EDT ,
[2024-01-08 01:44] LABS: Absolute Lymphocyte Count 1.47 X10^3/uL (0.83-4.51); Absolute Neutrophil Count 9.2 X10^3/uL (2.0-7.7); Basophil# 0.07 X10^3/uL; Basophil% 0.6 % (0-1); Eosinophil# 0.24 X10^3/uL; Hematocrit 39.5 % (40-54); Lymphocyte # 1.47 X10^3/ul (0.83-4.51); Lymphocyte % 12.3 % (19-41); Mean Corp Hgb Conc 32.9 g/dL (32-36); Mean Platelet Vol. 9.9 fl (6.2-12.0); Monocyte% 7.5 % (0-10); NRBC Flagged by Analyzer 0 % (0-5); Neutrophil # 9.24 X10^3/uL (2.7-7.7); Neutrophil % 77.1 % (47-70); Platelet Count 279 K/mm3 (150-450); RBC Distribution Width CV 13.6 % (11.6-14.6); RBC Distribution Width SD 45.3 fl (35.1-43.9); Red Blood Count 4.34 M/mm3 (4.6-6.2)
[2024-01-08 01:58] LABS: Anion Gap 9 (5-15); BUN 20 mg/dL (7-18); BUN/Creat Ratio 18.5 RATIO (10-20); Calcium,Total 9.1 mg/dL (8.5-10.1); Chloride 102 mmol/L (98-107); Creatinine, Serum 1.08 mg/dL (0.70-1.30); EST Glomerular Filtration Rate 69 mL/min (>60); Est Glom Filt Rate - Afr Amer 83 mL/min (>60); Estimated Creatinine Clearance 45.49 ml/min; Glucose 132 mg/dL (74-106); Magnesium 2.2 mg/dL (1.6-2.6); Potassium 3.4 mmol/L (3.5-5.1); Sodium Level 135 mmol/L (136-145)
[2024-01-08] MEDS: Captopril 12.5 MG Tablet PO (02:07)
--- NOTE | 2024-01-08 02:43 | HP.PCM.HOS_ITS ---
[facility] - General General Date of Admission: 01/08/24 Date of Service: 01/08/24 Chief Complaint: SOB. 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 closure of a small patent foramen ovale (2013) at [facility], history of moderate (2+) tricuspid valve insufficiency, secondary pulmonary hypertension, CKD; stage III based on eGFR trending, OA and recent admission here from December 31, 2023 to January 03, 2024 for treatment of AE of Chronic Diastolic CHF complicated by URI and clinical evidence of Acute Hypoxic Respiratory Failure requiring BiPAP treated with IV Lasix and Vanessa catheter with 1.41 L of fluid diuresed during that admission followed transition to Bumex 2 mg PO daily plus fluid restriction and possible consideration for a second mitral valve replacement due to an increasing mitral valve gradient up to ~16.5 mmHg (up from 14 mmHg in 07/2023 and with a gradient of 23 mmHg prior to his MVR in 2013) who presents to [facility] ER complaining of SOB. Mr. Purvis reports his symptoms began approximately 2-3 days prior to admission with the gradual-onset of progressively worsening PRUETT that progressed to SOB at rest in spite of strict compliance with the aggressive treatment regimen and fluid restriction outlined above. He also admits to associated fatigue, generalized weakness and aching in his muscles made worse with exertion in addition to intermittent chest pain with his SOB also made worse by laying flat. He underwent a NST on November 17, 2023 with the patient exercising on a Dany protocol for 6:44 completing stage II and 44 seconds of stage III achieving a peak heart rate of 87 bpm (60% predicted max heart rate) and with a peak blood pressure of 110/60 mmHg and a peak MET capacity of ~8 METS with a functional capacity that was considered average and with examination discontinued secondary to dyspnea. [facility] Medical History Hypothyroid Hypogonadism Rheumatic tricuspid insufficiency Paroxysmal atrial fibrillation Rheumatic aortic stenosis Pulmonary HTN Tricuspid regurgitation Mitral valve stenosis, rheumatic Home Medications ?Medication ?Instructions ?Recorded ?Last Taken ?Type levothyroxine 75 mcg tablet 75 mcg PO DAILY thyroid 08/27/13 08/26/13 History aspirin 325 mg tablet 325 mg PO DAILY antiplatelet 06/04/19 Unknown History potassium chloride 10 mEq 20 meq (2 x 10 mEq) PO DAILY 12/08/23 Unknown Rx tablet,extended release supplement #180 tabs Allergy/AdvReac Type Severity Reaction Status Date / Time alendronate sodium (From Allergy Unknown Verified 01/08/24 01:06 Fosamax) Family History Father Colon cancer Sister FH: mitral valve repair Mother No problems noted. Surgical History History of mitral valve replacement with bioprosthetic valve (~10/20/13) History of left heart catheterization (LHC) History of mitral valve replacement (10/20/13) Social History Smoking Status: Never smoker alcohol intake: never substance use type: does not use caffeine: No what type of physical activity do you participate in: none seatbelt use: always do you feel safe at home: Yes Vital Signs Vital Signs Vital Signs: 01/08/24 01:06 01/08/24 01:06 01/08/24 01:06 Temperature 97.8 F Temperature Source Axillary Pulse Rate 108 H Respiratory Rate 22 H Respiratory Effort Short of Breath Respiratory Depth Shallow Respiratory Pattern Tachypnea Blood Pressure 156/83 H Blood Pressure Mean 107 Pulse Ox 90 85 Oxygen Delivery Method Nasal Cannula Room Air Nasal Cannula Oxygen Flow Rate (L/min) 2 2 01/08/24 02:08 Temperature Temperature Source Pulse Rate 88 Respiratory Rate 22 H Respiratory Effort Respiratory Depth Respiratory Pattern Blood Pressure 114/55 L Blood Pressure Mean 74 Pulse Ox 93 Oxygen Delivery Method Nasal Cannula Oxygen Flow Rate (L/min) 2 Weight Weight: 144 lb 6.444 oz Body Mass Index (BMI) 22.6 Results Lab / Micro Data 01/08/24 01:17 01/08/24 01:17 Labs: Laboratory Results - last 24 hr 01/08/24 01:17: WBC 12.0 H, RBC 4.34 L, Hgb 13.0, Hct 39.5 L, MCV 91.0, MCH 30.0, MCHC 32.9, RDW Std Deviation 45.3 H, RDW Coeff of Chhaya 13.6, Plt Count 279, MPV 9.9, Immature Gran % (Auto) 0.500, Neut % (Auto) 77.1 H, Lymph % (Auto) 12.3 L, [place] % (Auto) 7.5, Eos % (Auto) 2.0, Baso % (Auto) 0.6, Absolute Neuts (auto) 9.2 H, Absolute Lymphs (auto) 1.47, Nucleated RBC % 0, Sodium 135 L, Potassium 3.4 L, Chloride 102, Carbon Dioxide 24.0, Anion Gap 9, BUN 20 H, Creatinine 1.08, Estim Creat Clear Calc 45.49, Est GFR (MDRD) Af Amer 83, Est GFR (MDRD) Non-Af 69, BUN/Creatinine Ratio 18.5, Glucose 132 H, Calcium 9.1, Magnesium 2.2 Micro: Microbiology 01/08/24 01:40 Mucosa - Nose SARS-CoV-2, Influenza & RSV (PCR) - Final Imaging Radiology Impression Chest X-Ray 01/08/24 01:35 IMPRESSION: Moderate pleural effusions and bilateral lower lobe airspace disease. Findings may indicate atelectasis or pneumonia. Electronically Signed: Heron Gardner MD at 2:22 EDT ,
--- NOTE | 2024-01-08 05:59 | EX.ED.DYSGE1 ---
HPI History of Present Illness Chief Complaint: Shortness of Breath Informant: patient Narrative Narrative: Patient is an 88-year-old male with past medical history of chronic kidney disease pulmonary hypertension congestive heart failure and previous mitral valve bioprosthetic replacement in 2013. He was admitted to this hospital on December 30 secondary to CHF exacerbation with respiratory distress and required BiPAP. At that time he had a repeat echo which revealed his prosthetic mitral valve was beginning to fail with his gradient increasing to a value of 16 and leading to worsening pulmonary hypertension. However with treatment in the hospital his respiratory distress resolved and he was he will be discharged without need for nasal cannula oxygen. The patient states since returning home he has stopped taking his diuretic as it seems to be making his symptoms worse. He also reports that he is progressing shortness of breath with exertion to shortness of breath at rest. He feels that his symptoms are similar to when he was admitted on December 30 and with this returns to the hospital for repeat evaluation [facility] Medical History Hypothyroid Hypogonadism Rheumatic tricuspid insufficiency Paroxysmal atrial fibrillation Rheumatic aortic stenosis Pulmonary HTN Tricuspid regurgitation Mitral valve stenosis, rheumatic Home Medications ?Medication ?Instructions ?Recorded ?Last Taken ?Type levothyroxine 75 mcg tablet 75 mcg PO DAILY thyroid 08/27/13 08/26/13 History aspirin 325 mg tablet 325 mg PO DAILY antiplatelet 06/04/19 Unknown History potassium chloride 10 mEq 20 meq (2 x 10 mEq) PO DAILY 12/08/23 Unknown Rx tablet,extended release supplement #180 tabs Allergy/AdvReac Type Severity Reaction Status Date / Time alendronate sodium (From Allergy Unknown Verified 01/08/24 01:06 Fosamax) Family History Father Colon cancer Sister FH: mitral valve repair Mother No problems noted. Surgical History History of mitral valve replacement with bioprosthetic valve (~10/20/13) History of left heart catheterization (LHC) History of mitral valve replacement (10/20/13) Social History Smoking Status: Never smoker alcohol intake: never substance use type: does not use caffeine: No what type of physical activity do you participate in: none seatbelt use: always do you feel safe at home: Yes ROS ROS ED Constitutional Constitutional ED: Denies chills or fever(s) Eyes Eyes: Denies blurry vision or change in vision ENT ENT ED: Denies sore throat Cardiovascular Cardiovascular: Denies chest pain Respiratory/Chest Respiratory/Chest: Reports cough and dyspnea Gastrointestinal Gastrointestinal: Denies abdominal pain, diarrhea, nausea or vomiting Genitourinary Genitourinary ED: Denies dysuria Musculoskeletal Musculoskeletal: Denies myalgias Integumentary Denies rash Neurologic Neurologic: Denies headache(s) Hematologic/Lymphatic Hematologic/Lymphatic: Denies easy bleeding or easy bruising Allergic/Immunologic Allergic/Immunologic ED: Denies mouth swelling or tongue swelling EXAM Physical Exam Const Vital Signs: 01/08/24 01:06 01/08/24 01:06 01/08/24 01:06 Temperature 97.8 F Temperature Source Axillary Pulse Rate 108 H Respiratory Rate 22 H Respiratory Effort Short of Breath Respiratory Depth Shallow Respiratory Pattern Tachypnea Blood Pressure 156/83 H Blood Pressure Mean 107 Pulse Ox 90 85 Oxygen Delivery Method Nasal Cannula Room Air Nasal Cannula Oxygen Flow Rate (L/min) 2 2 01/08/24 02:00 01/08/24 02:08 01/08/24 02:59 Temperature Temperature Source Pulse Rate 88 91 Respiratory Rate 22 H 18 Respiratory Effort Respiratory Depth Respiratory Pattern Blood Pressure 114/55 L 114/55 L 90/54 L Blood Pressure Mean 71 74 66 Pulse Ox 93 90 Oxygen Delivery Method Nasal Cannula Room Air Oxygen Flow Rate (L/min) 2 01/08/24 03:00 01/08/24 03:30 01/08/24 04:00 Temperature Temperature Source Pulse Rate 93 88 Respiratory Rate 22 H 20 H Respiratory Effort Respiratory Depth Respiratory Pattern Blood Pressure 90/54 L 77/66 L 121/62 H Blood Pressure Mean 65 71 78 Pulse Ox 92 91 Oxygen Delivery Method Oxygen Flow Rate (L/min) 01/08/24 04:30 01/08/24 05:00 Temperature Temperature Source Pulse Rate 97 106 H Respiratory Rate 24 H 25 H Respiratory Effort Respiratory Depth Respiratory Pattern Blood Pressure 133/71 H 149/77 H Blood Pressure Mean 90 99 Pulse Ox 93 93 Oxygen Delivery Method Oxygen Flow Rate (L/min) Positive well nourished and well developed General Appearance ED: well developed HEENT HEENT Narrative: No tongue or lip swelling no oral lesions no airway edema or compromise No signs of infection in the posterior pharynx Eyes PERRL and EOMs intact bilaterally General Eye ED: Negative for pale conjunctiva or scleral icterus Neck supple Neck Narrative: Trace JVD noted bilaterally Chest Wall palpation of chest normal Resp Resp Narrative: Patient is tachypneic with slight accessory muscle use. Breath sounds are diminished throughout with crackles noted in the bilateral lower lobes Cardio regular rhythm Rate: tachycardic and other Other Details: Slightly tachycardic rate with regular rhythm GI normal to inspection, nondistended, normoactive bowel sounds, non-tender, non-distended and no masses GI Narrative: No pulsatile mass or fluid wave Auscultation: normoactive bowel sounds Palpation: soft Extremity Extremity Narrative: Trace to +1 pitting edema to the bilateral lower extremities that is equal and symmetric Neuro oriented x3, CN's II-XII intact bilaterally and no sensory deficits noted Sensorium / Orientation: alert Motor Exam: strength 5/5 throughout Psych mental status grossly normal Skin no rashes or lesions noted General Skin Exam: Negative for jaundice MDM MDM MDM Narrative Medical decision making narrative: Patient arrived to the ER hypertensive with mild tachypnea and tachycardia and his room air pulse ox dropped as low as 85%. He states he does not need supplemental oxygen at baseline and this correlates when his discharge summary was reviewed. Differential diagnosis is for pleural effusions versus congestive heart failure exacerbation versus pneumonia versus acute blood loss anemia versus acute kidney injury versus severe electrolyte abnormality. Secondary to this a basic workup was obtained. Labs revealed stable H&H as well as normal kidney. Chest x-ray confirmed bilateral pleural effusions which correlate with his history of pulmonary edema. There is no overt infection noted. As the patient is now requiring supplemental oxygen at rest which he has not needed once he was discharged I do not feel he is safe for return home. I discussed the case with the hospitalist who feels he would be better served going to [facility] where his valve replacement was performed. As his last workup indicated the valve is failing causing a higher pressure gradient leading to worsening pulmonary hypertension treatment at this facility would merely be symptomatic but not address the underlying issue. As we do not have cardiothoracic surgery present he recommends transfer back to the [facility]. Therefore they were contacted and they do agree to accept the patient at this time so that they can continue to provide treatment and reevaluate for potential replacement of his mitral valve. This plan of care was discussed with the patient he is agreeable to it and he has remained hemodynamically stable on his 2 L of nasal cannula oxygen and is therefore safe for transport History & Record Review Discussion w/independent historian: Patient Lab Data Attestation: I reviewed the patient's lab results. Labs: Laboratory Results - last 24 hr 01/08/24 01:17 WBC 12.0 H RBC 4.34 L Hgb 13.0 Hct 39.5 L MCV 91.0 MCH 30.0 MCHC 32.9 RDW Std Deviation 45.3 H RDW Coeff of Chhaya 13.6 Plt Count 279 MPV 9.9 Immature Gran % (Auto) 0.500 Neut % (Auto) 77.1 H Lymph % (Auto) 12.3 L [place] % (Auto) 7.5 Eos % (Auto) 2.0 Baso % (Auto) 0.6 Absolute Neuts (auto) 9.2 H Absolute Lymphs (auto) 1.47 Nucleated RBC % 0 Sodium 135 L Potassium 3.4 L Chloride 102 Carbon Dioxide 24.0 Anion Gap 9 BUN 20 H Creatinine 1.08 Estim Creat Clear Calc 45.49 Est GFR (MDRD) Af Amer 83 Est GFR (MDRD) Non-Af 69 BUN/Creatinine Ratio 18.5 Glucose 132 H Calcium 9.1 Magnesium 2.2 Radiography Diagnostic Testing: Clinical Impression(s) from Imaging Studies Chest X-Ray 01/08/24 01:35 IMPRESSION: Moderate pleural effusions and bilateral lower lobe airspace disease. Findings may indicate atelectasis or pneumonia. Electronically Signed: Heron Gardner MD at 2:22 EDT , Chest x-ray as interpreted by the emergency medicine physician reveals bilateral pleural effusions and atelectasis without acute infiltrate or pneumothorax Discharge Plan Triage Chief Complaint: Shortness of Breath ED Provider: Mehdi Ramirez Dx/Rx/DC Orders Clinical Impression: History of mitral valve replacement with bioprosthetic valve, Bilateral pleural effusion, Pulmonary HTN, Paroxysmal atrial fibrillation, Acute on chronic respiratory failure Prescriptions: No Action levothyroxine 75 MCG tablet 75 mcg PO DAILY Patient Comments: thyroid aspirin 325 mg tablet 325 mg PO DAILY potassium chloride 10 mEq tablet extended release 20 meq PO DAILY Qty: 180 3RF Primary Care Provider: Nickolas Taylor Referrals: Nickolas Taylor MD [Primary Care Provider] - Print Language: Indonesian Disposition Disposition: Acute Care Hospital Discharge Location: [facility]
--- NOTE | 2024-01-08 07:05 | ED.RN ---
pt noted to decrease in o2 sats at this time to 87% on 3L nasal cannula. o2 increased to 4L. dr kessler made aware. iv dose of lasix ordered. this rn goes in to admin lasix, pt refuses lasix and states thats what got me in here in the first place. it made me worse.
--- NOTE | 2024-01-08 07:50 | ED.RN ---
pt noted to be tachypnic, tachycardic and diaphoretic. pt desat to 79% on nasal cannula and using accessory muscles to breathe. pt placed on bipap.
[2024-01-08] MEDS: Furosemide 40 MG/4 ML Vial IV (08:42)
[2024-01-08 08:48] LABS: Base Excess -3 mmol/L (-2 to +2); Bicarbonate 21.7 mmol/L (22-26); Blood Gas Specimen Type ART; Mode Not entered; O2 Delivery Device BiPAP; PEEP 10; PIP 16; PO2 88 mmHG (75-100); RR 12; SITE R Radial; SO2 97 % (95-99); Total Carbon Dioxide 23 mmol/L; pCO2 35.9 mmHg (35-45); pH 7.39 (7.35-7.45)
--- NOTE | 2024-01-08 08:53 | ED.RN ---
pts blood pressure noted to be 94 systolic, Dr. kruger made aware- verbal order to give lasix even though his pressure is soft. will continue to monitor
--- NOTE | 2024-01-08 10:20 | CPS ---
per Dr kruger took pt off bipap at this time. placed pt on 2L YOLANDE, RN and Dr lindquist
--- NOTE | 2024-01-08 10:27 | CPS ---
increased pt to 4L NC. pt sat was 88% now up to 92%
--- NOTE | 2024-01-08 10:33 | EKG12_ITS ---
Test Reason : REPEAT/CHANGE Blood Pressure : / mmHG Vent. Rate : 095 BPM Atrial Rate : 095 BPM P-R Int : 154 ms QRS Dur : 074 ms QT Int : 372 ms P-R-T Axes : 000 -06 064 degrees QTc Int : 467 ms Normal sinus rhythm Nonspecific ST abnormality Abnormal ECG When compared with ECG of 08-JAN-2024 01:22, MANUAL COMPARISON REQUIRED, DATA IS UNCONFIRMED Confirmed by TO SCHAFER, ELAN ([id number]), tape editor JAVED NEWBERRY ([id number]) on 01/16/2024 7:26:03 AM Referred By: Confirmed By:JUS ARIZA MD
--- NOTE | 2024-01-08 12:14 | ED.RN ---
nurse report called to ANGE Verdugo.
[2024-01-08 13:47] LABS: BNP,B-Type NATRIURETIC PEPTIDE 487.3 pg/mL (0-100)
== END 2024-01-08 16:22 | disposition short-term general hospital (02) ==
PROVIDERS: Emergency Provider Emergency Medicine; PCP Family Medicine; Visit Provider Emergency Medicine
DX: J96.20 Acute and chronic respiratory failure, unspecified whether with hypoxia or hypercapnia (principal); I27.0 Primary pulmonary hypertension; I48.0 Paroxysmal atrial fibrillation; J90 Pleural effusion, not elsewhere classified; Z79.82 Long term (current) use of aspirin; Z79.899 Other long term (current) drug therapy
CPT/HCPCS: 36600; 71046; 80048; 82803; 83735; 83880; 85025; 87631; 93005; 94002; 96374; 99284; A4216; J1940

== ENCOUNTER → 2024-02-26 | Outpatient (CLI) | payer MEDICARE, SELFPAY ==
[2024-02-26 09:36] LABS: Absolute Lymphocyte Count 1.13 X10^3/uL (0.83-4.51); Absolute Neutrophil Count 3.6 X10^3/uL (2.0-7.7); Basophil# 0.04 X10^3/uL; Basophil% 0.7 % (0-1); Eosinophil# 0.27 X10^3/uL; Eosinophils% 4.7 % (0-5); Hematocrit 40.1 % (40-54); Hemoglobin 12.7 g/dL (13.0-16.5); Lymphocyte # 1.13 X10^3/ul (0.83-4.51); Lymphocyte % 19.8 % (19-41); Mean Corp Hgb Conc 31.7 g/dL (32-36); Mean Corpuscular Hgb 30.2 pg (27.0-32.0); Mean Corpuscular Volume 95.2 fL (80-94); Mean Platelet Vol. 9.6 fl (6.2-12.0); Monocyte# 0.61 X10^3/uL; Monocyte% 10.7 % (0-10); NRBC Flagged by Analyzer 0 % (0-5); Neutrophil # 3.63 X10^3/uL (2.7-7.7); Neutrophil % 63.7 % (47-70); Platelet Count 155 K/mm3 (150-450); RBC Distribution Width CV 14.9 % (11.6-14.6); RBC Distribution Width SD 51.9 fl (35.1-43.9); Red Blood Count 4.21 M/mm3 (4.6-6.2); White Blood Count 5.7 K/mm3 (4.4-11.0)
[2024-02-26 11:20] LABS: ALB/GLOB Ratio 0.8 RATIO (0.9-2.4); AST(SGOT) 19 U/L (15-37); Alanine Aminotransfer ALT/SGPT 18 U/L (16-61); Albumin, Serum 3.4 g/dL (3.2-5.0); Alkaline Phosphatase 63 U/L (45-117); Anion Gap 4 (5-15); BUN 23 mg/dL (7-18); BUN/Creat Ratio 21.1 RATIO (10-20); Calcium,Total 9.4 mg/dL (8.5-10.1); Chloride 106 mmol/L (98-107); Cholesterol 168 mg/dL (200); Creatinine, Serum 1.09 mg/dL (0.70-1.30); EST Glomerular Filtration Rate 68 mL/min (>60); Est Glom Filt Rate - Afr Amer 83 mL/min (>60); Glucose 97 mg/dL (74-106); High Density Lipoprotein 53 mg/dL; Potassium 3.5 mmol/L (3.5-5.1); Protein, Total 7.4 g/dL (6.4-8.2); Sodium Level 140 mmol/L (136-145); Triglycerides 71 mg/dL; Very Low Density Lipoprotein 14 mg/dL (5-40)
[2024-02-26 13:46] LABS: Hemoglobin A1c 5.3 % (3.8-5.6)
== END | disposition home or self-care (01) ==
LOC: LAB 09:07
PROVIDERS: PCP Family Medicine; Referring Provider Physician Assistant Medical; Visit Provider Physician Assistant Medical
DX: Z95.2 Presence of prosthetic heart valve (principal); I50.30 Unspecified diastolic (congestive) heart failure; R07.9 Chest pain, unspecified; R73.01 Impaired fasting glucose; E78.5 Hyperlipidemia, unspecified
CPT/HCPCS: 36415; 80053; 80061; 83036; 85025

== ENCOUNTER → 2024-05-27 | Outpatient (CLI) | payer MEDICARE, SELFPAY ==
--- NOTE | 2024-05-27 08:41 | ECHOD_ITS ---
Reason For Study: TMVR Procedure This was a 2D Doppler, Color Flow transthoracic echocardiogram. Exam performed in department. Left Ventricle Normal LV size. Moderate concentric left ventricular hypertrophy. The left ventricular ejection fraction is 55 %. Right Ventricle Normal RV size. ICD or pacer leads identified within the right ventricle. The right ventricle is normal in size, function, and thickness. Atria The left atrium is severely enlarged. Normal right atrium. ICD or pacer leads identified within the right atrium. Mitral Valve Peak transmitral valve gradient 13 mmHg. Mean transmitral valve gradient 7 mmHg. Stable appearing bioprosthetic mitral valve apparatus. Tricuspid Valve Normal tricuspid valve. Mild (1+) tricuspid valve insufficiency. Pulmonary artery systolic pressure is 37 mmHg. Aortic Valve Normal aortic valve. Trisinus/trileaflet aortic valve. Pulmonic Valve Normal pulmonic valve. MMode/2D Measurements & Calculations LVIDd: 3.3 cm IVSd: 1.5 cm LAV(MOD-bp): 113.6 ml LVIDs: 2.5 cm LVPWd: 1.6 cm LAV(MOD-bp) Indexed: 65.3 ml/m2 RVDd: 3.9 cm FS: 23.9 % LAV(MOD-sp2): 89.7 ml LAV(MOD-sp4): 126.1 ml RVOT diam: 2.3 cm LVAd ap4: 21.0 cm2 SV(MOD-sp4): 31.6 ml LVLd ap4: 6.4 cm SI(MOD-sp4): 18.2 ml/m2 EDV(MOD-sp4): 60.8 ml EDV(sp4-el): 58.5 ml LVAs ap4: 13.3 cm2 LVLs ap4: 5.5 cm ESV(MOD-sp4): 29.2 ml ESV(sp4-el): 27.5 ml EF(MOD-sp4): 52.0 % EF(sp4-el): 53.0 % SV(sp4-el): 31.0 ml LA A4 area: 30.2 cm2 LA dimension(2D): 5.2 cm RA A4 area: 12.9 cm2 Time Measurements MV dec time: 0.27 sec Doppler Measurements & Calculations MV E max brent: 139.9 cm/sec Lat Peak E' Brent: 7.3 cm/sec Med Peak E' Brent: 7.7 cm/sec MV A max brent: 148.7 cm/sec E/E' lat: 19.1 E/E' med: 18.1 MV E/A: 0.94 MV V2 max: 183.2 cm/sec MV dec slope: 518.9 cm/sec2 Ao V2 max: 215.3 cm/sec MV max P.4 mmHg Ao max P.6 mmHg MV V2 mean: 124.9 cm/sec Ao V2 mean: 155.8 cm/sec MV mean P.2 mmHg Ao mean P.1 mmHg MV V2 VTI: 64.6 cm Ao V2 VTI: 48.8 cm AV (velocity ratio): 0.99 LV V1 max: 197.3 cm/sec PA V2 max: 98.2 cm/sec SV(RVOT): 50.0 ml LV V1 max P.6 mmHg PA V2 mean: 70.7 cm/sec LV V1 mean P.0 mmHg PA mean PG (full): 1.4 mmHg LV V1 mean: 151.6 cm/sec LV V1 VTI: 48.1 cm TR max brent: 289.3 cm/sec TR max P.5 mmHg ECHO/Echo Complete Interpretation Summary Normal LV size. Moderate concentric left ventricular hypertrophy. The left ventricular ejection fraction is 55 %. The left atrium is severely enlarged. Stable appearing bioprosthetic mitral valve apparatus. Mean transmitral valve gradient 7 mmHg. The gradients across the mitral valve appeared to be better at this time. Ordering Physician: Shantel Shepard Referring Physician: Shantel Shepard Performed By: Ethle Spaulding RCS
== END | disposition home or self-care (01) ==
LOC: CVS 08:41
PROVIDERS: PCP Family Medicine; Referring Provider Physician Assistant Medical; Visit Provider Physician Assistant Medical
DX: Z95.3 Presence of xenogenic heart valve (principal)
CPT/HCPCS: 93306

== ENCOUNTER → 2024-11-12 | Outpatient (CLI) | payer MEDICARE, SELFPAY ==
[2024-11-12 15:58] LABS: Color, Urine Straw (Yellow); Glucose, Dipstick Normal (Normal); Ketone-Dipstick Negative (Negative); Leukocyte Esterase-Dipstick 25 /ul (Negative); Nitrite-Dipstick Negative (Negative); Occult Blood-Urine Negative /ul (Negative); Protein-Dipstick 15 mg/dl (Negative); Specific Gravity, Urine 1.015 (1.002-1.030); Urine Bilirubin Dipstick Negative (Negative); Urine Clarity Clear (Clear); Urine Urobilinogen Normal (Normal)
[2024-11-12 16:03] LABS: Hepatitis C Antibody Nonreactive (Nonreactive)
[2024-11-12 16:48] LABS: Hepatitis B Surface Antibody Nonreactive
[2024-11-15 16:09] LABS: PROEL- A/G Ratio 1.2 (0.7-1.7); PROEL- Albumin 3.5 g/dL (2.9-4.4); PROEL- Alpha-1 Globulin 0.2 g/dL (0.0-0.4); PROEL- Alpha-2 Globulin 0.6 g/dL (0.4-1.0); PROEL- Gamma Globulin 1.1 g/dL (0.4-1.8); PROEL- Globulin, Total 2.9 g/dL (2.2-3.9); PROEL- TOTAL PROTEIN 6.4 g/dL (6.0-8.5); PROEL-M-Spike Not Observed g/dL (Not Observed)
[2024-11-16 12:09] LABS: Anti-Nuclear Antibody Test Negative (.); Anti-dsDNA Ab 1 IU/mL (0-9)
== END | disposition home or self-care (01) ==
LOC: MTLAB 13:55
PROVIDERS: PCP Family Medicine; Referring Provider Physician Assistant; Visit Provider Physician Assistant
DX: L30.8 Other specified dermatitis (principal)
CPT/HCPCS: 36415; 81002; 84165; 86038; 86225; 86706; 86803; 87086

== ENCOUNTER 2025-03-25 04:14 | Observation (INO) | payer MEDICARE, SELFPAY ==
[2025-03-25] VITALS (17 sets, daily range): BP systolic 93–180; BP diastolic 58–86; PULSE 70–113; RESP 12–22; TEMP 35.8–36.8; O2SAT 93–100; BMI 24.0
--- NOTE | 2025-03-25 04:28 | CT_ITS ---
PROCEDURE: STROKE BRAIN/HEAD WITHOUT CONT 03/25/2025 REASON FOR EXAM: NEURO DEFICIT, ACUTE, STROKE SUSPECTED TECHNIQUE: Procedure Code: CTBR.ST Modality: CT Procedure: STROKE BRAIN/HEAD WITHOUT CONT Coronal and Sagittal reconstruction series were provided. One or more dose reduction techniques were used (e.g., Automated exposure control, adjustment of the mA and/or kV according to patient size, use of iterative reconstruction technique. RADIATION DOSE SUMMARY: CTDlvol: 44.99 mGy DLP: 846 mGycm COMPARISON: None. 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 Scattered hypodense foci in the periventricular and subcortical white matter suggestive of chronic ischemic white matter disease. Normal size of the ventricles and extra-axial spaces for the patient's age. Normal basal ganglia and thalami. Normal brainstem. Normal cerebellum. There is no demonstrated extra-axial, intraparenchymal, or intraventricular hemorrhage. There are no findings of an acute ischemic infarction. Normal calvarium. There is no demonstrated fracture. Normal soft tissue structures. Moderate chronic mucosal inflammatory changes of the e chronic mucosal inflammatory changes of the visualized paranasal sinuses. CT/STROKE Brain/Head without Cont IMPRESSION: No CT evidence for an acute brain abnormality. I discussed the findings with Fritz Ortiz in the emergency department at 4:50 a.m. EST. Reading Location: [place] [id number]
--- NOTE | 2025-03-25 04:28 | EKG12_ITS ---
Test Reason : DYSRHYTHMIA Blood Pressure : */* mmHG Vent. Rate : 74 BPM Atrial Rate : 74 BPM P-R Int : 206 ms QRS Dur : 110 ms QT Int : 424 ms P-R-T Axes : 88 83 54 degrees QTcB Int : 470 ms Atrial-sensed ventricular-paced rhythm Abnormal ECG Confirmed by TIFFANY CHRISTIANSON MD ([id number]), supervising film or videotape editor JAVED NEWBERRY ([id number]) on 03/26/2025 8:03:43 AM Referred By: Confirmed By: TIFFANY CHRISTIANSON MD
--- NOTE | 2025-03-25 04:29 | CT_ITS ---
PROCEDURE: STROKE CTA HEAD AND NECK W/CON 03/25/2025 REASON FOR EXAM: NEURO DEFICIT, ACUTE, STROKE SUSPECTED TECHNIQUE: Procedure Code: [id number].ST.HN Modality: CT Procedure: STROKE CTA HEAD AND NECK W/CON Multiplanar Sagittal and Coronal images were obtained. CONTRAST: Isovue 370 VOLUME: 100 mL One or more dose reduction techniques were used (e.g., Automated exposure control, adjustment of the mA and/or kV according to patient size, use of iterative reconstruction technique). RADIATION DOSE SUMMARY: CTDlvol: 16.56 mGy DLP: 680 mGycm COMPARISON: CT scan on 03/25/2025. FINDINGS: Occluded distal P1 segment of the right posterior cerebral artery which is not opacified distal to this level. Normal bilateral petrous carotid arteries. Calcified atheromatous plaques with mild multifocal stenosis of the right cavernous carotid artery with a normal supraclinoid bifurcation. Calcified atheromatous plaques with mild multifocal stenosis of the left cavernous carotid artery with a normal supraclinoid bifurcation. Normal right A1 segments of the anterior cerebral artery. Normal left A1 segments of the anterior cerebral artery. Normal intact anterior communicating artery (ACOM). Normal bilateral A2 segments of the anterior cerebral arteries. Normal right M1 and M2 segments of the middle cerebral arteries, with a normal M1 bifurcation. Normal left M1 and M2 segments of the middle cerebral arteries, with a normal M1 bifurcation. Normal right posterior communicating artery (PCOM). Normal left posterior communicating artery (PCOM). Normal bilateral vertebral arteries. Normal basilar artery with a normal basilar bifurcation. The visualized bilateral superior cerebellar (SCA) arteries are normal. Normal left P1, P2 and visualized P3 segments of the posterior cerebral arteries. There is no demonstrated aneurysm of the [place]. There is no demonstrated abnormality of the visualized brain. RIGHT CAROTID ARTERIES: Normal right common carotid artery (CCA). 20% stenosis secondary to calcified atheromatous plaques of the right common carotid bulb. 20% stenosis secondary to calcified atheromatous plaques of the origin of the right internal carotid (ICA) artery without a hemodynamically significant stenosis. Normal remaining visualized cervical portion of the right internal carotid artery. Normal origin of the right external carotid artery (ECA). LEFT CAROTID ARTERIES: Normal left common carotid artery (CCA). 20% stenosis secondary to calcified atheromatous plaques of the left common carotid bulb. 20% stenosis secondary to calcified atheromatous plaques of the origin of the left internal carotid (ICA) artery without a hemodynamically significant stenosis. Normal remaining visualized cervical portion of the left internal carotid artery. Normal origin of the left external carotid artery (ECA). VERTEBRAL ARTERIES: Normal bilateral vertebral artery without a hemodynamically significant stenosis. CT/STROKE CTA Head AND Neck W/Con IMPRESSION: Atherosclerosis. Multifocal stenosis. 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 The right posterior cerebral artery is not opacified distal to this level. I discussed the findings with Dr. Fritz Kendall in the emergency department at 5:40 a.m. EST. Reading [facility]
--- NOTE | 2025-03-25 04:32 | ED.VIS.STROK ---
HPI History of Present Illness Chief Complaint: Numb/Ting Informant: patient Narrative Narrative: 89-year-old male presenting to the emergency room with reported numbness of his left face. Patient states that he went to bed around 2330 hrs. last night. He was up around 0230 hours and felt fine. He woke approximately 1 hour ago (0330) and noticed that his left side of his face felt numb like the dentist had injected. He states he can still feel the touch but it feels distinctly different than the right denies any difficulty speaking arm or leg symptoms. He denies any headache. He takes a daily full-strength aspirin. He has had prior mitral valve replacement with bioprosthetic valve as well as has a pacemaker for complete heart block. 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 He drove himself to the hospital without any difficulty. He states this is just precautionary. There is a diagnosis in the computer of paroxysmal atrial fibrillation. However he is not anticoagulated. [facility] Medical History Complete heart block by electrocardiogram Presence of cardiac pacemaker Hypothyroid Hypogonadism Rheumatic tricuspid insufficiency Paroxysmal atrial fibrillation Rheumatic aortic stenosis Pulmonary HTN Tricuspid regurgitation Mitral valve stenosis, rheumatic Home Medications ?Medication ?Instructions ?Recorded ?Last Taken ?Type levothyroxine 75 mcg tablet 75 mcg PO DAILY thyroid 08/27/13 08/26/13 History aspirin 325 mg tablet 325 mg PO DAILY antiplatelet 06/04/19 Unknown History Allergy/AdvReac Type Severity Reaction Status Date / Time alendronate sodium (From Allergy Unknown Verified 03/25/25 04:14 Fosamax) Family History Father Colon cancer Sister FH: mitral valve repair Mother No problems noted. Surgical History S/P transcatheter mitral valve replacement (TMVR) History of mitral valve replacement with bioprosthetic valve (~10/20/13) History of left heart catheterization (LHC) History of mitral valve replacement (10/20/13) Social History (Updated 03/25/25 @ 05:[address] Lucila Mtat MD) household members: none Smoking Status: Never smoker alcohol intake: never substance use type: does not use caffeine: No what type of physical activity do you participate in: none seatbelt use: always do you feel safe at home: Yes ROS ROS ED Constitutional Constitutional ED: Denies chills, fever(s) or weight loss Eyes Eyes: Denies change in vision or diplopia ENT ENT ED: Denies ear pain, rhinorrhea or sore throat Cardiovascular Cardiovascular: Denies chest pain, orthopnea, palpitations or racing heartbeat Respiratory/Chest Respiratory/Chest: Denies cough, dyspnea or orthopnea Gastrointestinal Gastrointestinal: Denies abdominal pain, diarrhea, nausea or vomiting Genitourinary Genitourinary ED: Denies dysuria, hematuria or urinary frequency Musculoskeletal Musculoskeletal: Denies arthralgias or myalgias Integumentary Denies abscess or rash Neurologic Neurologic: Reports paresthesias; Denies headache(s) or weakness Psychiatric Psychiatric: Denies anxiety, depression, suicidal ideation or suicidal thoughts Endocrine Endocrinology: Denies polydipsia, polyphagia or polyuria Allergic/Immunologic Allergic/Immunologic ED: Denies mouth swelling, tongue swelling or urticaria EXAM Physical Exam Const Vital Signs: 03/25/25 04:14 03/25/25 04:16 03/25/25 04:18 Temperature 98.2 F Temperature Source Oral Pulse Rate 98 83 Respiratory Rate 14 21 H Blood Pressure 180/67 H 180/67 H Blood Pressure Mean 104 101 Pulse Ox 98 98 Oxygen Delivery Method 03/25/25 04:30 03/25/25 04:30 03/25/25 04:31 Temperature Temperature Source Pulse Rate 77 78 78 Respiratory Rate 18 16 22 H Blood Pressure 180/67 H 180/61 H Blood Pressure Mean 104 100 Pulse Ox 98 98 100 Oxygen Delivery Method Room Air Room Air 03/25/25 04:37 03/25/25 04:44 03/25/25 04:45 Temperature Temperature Source Pulse Rate 79 75 Respiratory Rate 16 12 Blood Pressure 159/86 H 162/75 H Blood Pressure Mean 107 101 Pulse Ox 98 Oxygen Delivery Method Room Air 03/25/25 05:00 03/25/25 05:00 03/25/25 05:15 Temperature Temperature Source Pulse Rate 74 77 72 Respiratory Rate 17 15 15 Blood Pressure 160/76 H 160/76 H 148/70 H Blood Pressure Mean 104 102 93 Pulse Ox 100 100 97 Oxygen Delivery Method Room Air 03/25/25 05:30 03/25/25 05:32 Temperature 98.0 F Temperature Source Pulse Rate 70 72 Respiratory Rate 16 15 Blood Pressure 142/73 H 142/73 H Blood Pressure Mean 96 96 Pulse Ox 100 99 Oxygen Delivery Method Room Air Positive well nourished and well developed General Appearance ED: well developed HEENT Reports normocephalic, head/scalp atraumatic and moist mucous membranes Eyes PERRL and EOMs intact bilaterally Neck no lymphadenopathy, supple and no JVD Resp normal respiratory effort and clear to auscultation bilaterally Cardio regular rate, regular rhythm and no murmurs GI normal to inspection, nondistended, normoactive bowel sounds and non-tender Palpation: soft Back/Spine no CVA tenderness and normal ROM Extremity normal to inspection General Extremety ED: Negative for edema General Extremity: Negative for edema Neuro oriented x3 and CN's II-XII intact bilaterally Neuro Narrative: 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 [place] Coma Scale: document GCS findings Spontaneous Obeys Commands Oriented 15 Sensorium / Orientation: alert Speech: speech normal Motor Exam: strength 5/5 throughout Psych mental status grossly normal Mood & Affect: Negative for depressed or tearful Skin no rashes or lesions noted and no wounds MDM MDM MDM Narrative Medical decision making narrative: Differential diagnosis includes but not limited to acute ischemic stroke hemorrhagic stroke malignancy large vessel occlusion dissection electrolyte abnormality neuropraxia Because of his symptomology and the acute nature a acute stroke team was called. Initial head CT and CTA was obtained. These were reviewed with neurology and radiology. Recommendation from neurology is to obtain an MRI. It does appear that his pacemaker is MRI compatible. Patient is amendable to thiswith the hospitalist. History & Record Review Discussion w/independent historian: Patient Lab Data Attestation: I reviewed the patient's lab results. Labs: Laboratory Results - last 24 hr 03/25/25 03/25/25 04:23 04:30 WBC 6.3 RBC 4.49 L Hgb 14.1 Hct 42.3 MCV 94.2 H MCH 31.4 MCHC 33.3 RDW Std Deviation 46.2 H RDW Coeff of Chhaya 13.3 Plt Count 122 L MPV 10.0 Immature Gran % (Auto) 0.300 Neut % (Auto) 55.7 Lymph % (Auto) 28.5 Citrus % (Auto) 10.7 H Eos % (Auto) 4.0 Baso % (Auto) 0.8 Absolute Neuts (auto) 3.5 Absolute Lymphs (auto) 1.78 Nucleated RBC % 0 PT 14.2 INR 1.1 APTT 29.9 Sodium 138 Potassium 4.1 Chloride 104 Carbon Dioxide 25.1 Anion Gap 10 BUN 26 H Creatinine 1.15 Estim Creat Clear Calc 40.84 L Est GFR (MDRD) Non-Af 62 BUN/Creatinine Ratio 22.9 H Glucose 98 Calcium 9.1 Troponin T High Sens 19 POC Glucose 83 Radiography Diagnostic Testing: Clinical Impression(s) from Imaging Studies Brain CT 03/25/25 04:28 IMPRESSION: No CT evidence for an acute brain abnormality. I discussed the findings with Fritz Ortiz in the emergency department at 4:50 a.m. EST. Reading Location: [place] [id number] Head/Neck CTA 03/25/25 04:29 IMPRESSION: Atherosclerosis. 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 The right posterior cerebral artery is not opacified distal to this level. I discussed the findings with Dr. Fritz Kendall in the emergency department at 5:40 a.m. EST. Reading Location: [place] [id number] EKG Initial EKG: Attestation: I personally reviewed and interpreted this EKG as follows: Comments: Atrial sensed ventricular paced rhythm at 74 bpm Management Discussion w/another healthcare provider: Hospitalist, Public Records Researcher ([facility] telestroke neurology) and Radiologist Discharge Plan Dx/Rx/DC Orders Clinical Impression: Left facial numbness, Paroxysmal atrial fibrillation, Presence of cardiac pacemaker Disposition Disposition: Acute Care Hospital [facility] NIHSS NIHSS 1a. Level of Consciousness: 0 - Alert; keenly responsive 1b. LOC Questions: 0 - Answers BOTH questions correctly 1c. LOC Commands: 0 - Performs BOTH tasks correctly 2. Best Gaze: 0 - Normal 3. Visual: 0 - No visual loss 4. Facial Palsy: 0 - Normal symmetrical movements 5a. Left Arm: 0 - No drift; arm holds 90 (or 45) degrees for full 10 seconds 5b. Right Arm: 0 - No drift; arm holds 90 (or 45) degrees for full 10 seconds 6a. Left Le - No drift; leg holds 30-degree position for full 5 seconds 6b. Right Le - No drift; leg holds 30-degree position for full 5 seconds 7. Limb Ataxia: 0 - Absent 8. Sensory: 1 - [id number] sensory loss; 9. Best Language: 0 - No aphasia; normal 10. Dysarthria: 0 - Normal 11. Extinction and Inattention: 0 - No abnormality Total: 1
--- OUTSIDE RECORDS SUMMARY | 2025-03-25 04:34 | XMS RPT_ITS | CCD ---
Author Organization [facility] Care Team Providers Care Mixer Helper Name Role Phone Caesar Hurt Unavailable Unavailable Modesto Mays Unavailable Unavailable Modesto Mays Unavailable Unavailable Caesar Hurt Unavailable Unavailable Jesus Taylor MD Primary Care Provider Dr. Jesus Taylor Primary Care Provider Dr. Caleb Tarango Attending Provider Jesus Taylor MD Primary Care Provider Jesus Taylor MD Primary Care Provider Dr. Jesus Taylor Primary Care Provider Dr. Janine Martin Attending Provider Dr. Jesus Taylor Referring Provider Drea FENTON, PA Shantel Erazo Attending Provider Jesus Taylor MD Primary Care Provider Provider Geoffrey SCHAFER Unavailable Unavailable Tannhof GAUGE AND INSTRUMENT INSPECTOR.LATONYA Codie Unavailable Saroj GAUGE AND INSTRUMENT INSPECTOR.SHIPYARD PAINTER, Tyson Unavailable Tannhof GAUGE AND INSTRUMENT INSPECTOR.SHIPYARD PAINTER Codie Unavailable Dr. Jesus Taylor MD Primary Care Provider Dr. Schuyler Angel MD Attending Provider Irene Leyva PA-C Attending Provider Irene Leyva PA-C Referring Provider Dr. Jesus Taylor MD Primary Care Provider [phone] Jeanne SCHAFER, Dr. Payan Attending Provider Brandon SCHAFER, Dr. Olmos Referring Provider Shantel Hodges Attending Provider [phone] Brandon SCHAFER, Dr. Olmos Primary Care Physician Jeanne SCHAFER, Dr. Payan Attending Physician Irene Leyva PA-C Attending Physician Shantel Hodges Attending Physician Jesus Taylor Primary Care Unavailable Graf FENTON, Irene Attending Unavailable Graf FENTON, Irene Referring Unavailable Shantel Hodges Attending Unavail able Shantel Hodges Referring Unavail able Jesus Taylor Primary Care Unavailable Jeanne, Schuyler Attending Unavailable Brandon, Jesus Primary Care Unavailable Brandon, Jesus Primary Care Unavailable Jesus Taylor Referring Unavailable Eren Winslow Attending Unavailable Jeanne, Schuyler Attending Unavailable Brandon, Jesus Primary Care Unavailable Brandon, Jesus Primary Care Unavailable Jeanne, Schuyler Attending Unavailable Jesus Taylor Referring Unavailable Brandon, Jesus Primary Care Unavailable Jeanne, Schuyler Attending Unavailable Brandon, Jesus Primary Care Unavailable Jeanne, Schuyler Attending Unavailable Jesus Taylor Primary Care Unavailable Shantel Hodges Attending Unavail able Jesus Taylor Referring Unavailable Jeanne, [place] Attending Unavailable Brandon, Jesus Primary Care Unavailable Jeanne, [place] Attending Unavailable Jesus Taylor Primary Care Unavailable Brandon SCHAFER, Dr. Olmos Primary Care Physician Dr. Schuyler Angel MD Attending Physician JESUS TAYLOR Primary Care Unavailable PENNIE RUELAS Attending Unavailable FRITZ POPE Attending Unavailable JESUS TAYLOR Primary Care Unavailable PENNIE RUELAS Referring Unavailable JESUS TAYLOR Referring Unavailable JESUS TAYLOR Primary Care Unavailable PENNIE RUELAS Attending Unavailable JESUS TAYLOR Primary Care Unavailable JESUS TAYLOR Attending Unavailable JESUS TAYLOR Referring Unavailable JESUS TAYLOR Primary Care Unavailable WINIFRED VALLEJO Attending Unavailable LALITA PERKINS Referring Unavailable JESUS TAYLOR Primary Care Unavailable LALITA PERKINS Referring Unavailable JESUS TAYLOR Primary Care Unavailable JESUS TYALOR Primary Care Unavailable CODIE MANN Attending Unavailabl JESUS Way Primary Care Unavailable JESUS TAYLOR Attending Unavailable JESUS TAYLOR Primary Care Unavailable JESUS TAYLOR Attending Unavailable JESUS TAYLOR Referring Unavailable JESUS TAYLOR Primary Care Unavailable JESUS TAYLOR Attending Unavailable JESUS TAYLOR Primary Care Unavailable JESUS TAYLOR Primary Care Unavailable JESUS TAYLOR Referring Unavailable Allergies Allergy Classification Reported Allergen(s) Allergy Type Date of Onset Reaction(s) Facility (4 sources) alendronate drug allergy 4 [facility] Work Phone: (20 sources) Alendronate; Translations: [ALENDRONATE SODIUM] Drug Allergy 7 Intolerance, Unknown [facility] Work Phone: (1 source) Alendronate Drug Allergy 5 [facility] Repository (1 source) Alendronate; Translations: [ALENDRONATE] Drug Allergy 4 [facility] Repository Medications Current Medications Medication Drug Class(es) Dates Sig (Normalized) Sig (Original) aspirin 325 mg delayed release oral tablet (20 sources) Nonsteroidal Anti-inflammatory Drug Start: 02-24-2024 take 1 tablet by mouth once daily aspirin, enteric coated (ASPIRIN, ENTERIC COATED) 325 mg EC tablet Take 1 tablet by mouth once daily. 02/24/2024 Active Start: 01-24-2024 End: 02-24-2024 take 1 tablet by mouth once daily aspirin, enteric coated (ASPIRIN, ENTERIC COATED) 81 mg EC tablet Take 1 tablet by mouth once daily. 30 tablet 01/24/2024 02/24/2024 Discontinued Start: 09-01-2019 take 1 tablet by gareth th once daily at mealtime aspirin, enteric coated (ASPIRIN, ENTERIC COATED) 325 mg EC tablet Indications: H/O mitral valve replacement Take 1 tablet by mouth once daily. Take with food. 09/01/2019 Suspended Start: 06-04-2019 take 1 tablet by gareth th once daily Start: 06-13-2017 End: 06-04-2019 take 2 tablets by mouth once daily Aspirin (Adult Low Dose Aspirin) 81 mg tablet,delayed release (DR/EC) Discontinued 0 PO daily June 13, 2017 1:00am June 04, 2019 12:21pm 2 tablets by mouth QD PO QDAY Start: 11-02-2013 take 2 tablets by [facility] once daily ASPIRIN 81 MG TABS Two tablets by mouth daily ASPIRIN [id number] Caleb Tarango MD Start: 11-02-2013 take 1 tablet by [facility] once daily ASPIRIN 81 MG TABS One tablet by mouth daily ASPIRIN [id number] Yaz Childress RN Start: 11-02-2013 take 1 tablet by gareth once daily ASPIRIN 81 MG TABS One tablet by mouth daily ASPIRIN [id number] Yaz Childress RN Start: 11-02-2013 take 2 tablets by [facility] once daily ASPIRIN 81 MG TABS Two tablets by mouth daily ASPIRIN [id number] Caleb Tarango MD Start: 11-02-2013 take 2 tablets by [facility] once daily ASPIRIN EC 81 MG TBEC Two tablets by mouth daily ASPIRIN [id number] Piper John RN Comment on above: Take 1 tablet by [facility] once daily. Take with food. doxycycline hyclate 100 mg oral capsule (2 sources) Tetracycline-cla ss Drug Start: 07-08-2024 End: 07-18-2024 take 1 capsule by mouth twice daily doxycycline hyclate (VIBRAMYCIN) 100 mg capsule Indications: Cellulitis of skin Take 1 capsule (100 mg) by mouth two times a day for 10 days. 20 capsule 07/08/2024 07/18/2024 Active Start: 06-18-2024 End: 07-02-2024 take 1 capsule by mouth twice daily doxycycline hyclate (VIBRAMYCIN) 100 mg capsule Indications: Cellulitis of skin Take 1 capsule (100 mg) by mouth two times a day for 14 days. 28 capsule 06/18/2024 07/02/2024 Active polyethylene glycol 3350 761266 mg / potassium chloride 2970 mg / sodium bicarbonate 6740 mg / sodium chloride 5860 mg / sodium sulfate 25841 mg powder for oral solution (1 source) Osmotic Laxative Start: 10-05-2024 End: 10-05-2024 peg 3350-Electrolytes (GOLYTELY) 236-22.74-6.74 -5.86 gram suspension Indications: Screening for colon cancer Take 4,000 mL by mouth one time only for 1 dose. Refer to printed prep instructions from your provider. 4000 mL 10/05/2024 10/05/2024 Active predniSONE 10 mg oral tablet (1 source) Start: 06-18-2024 End: 06-30-2024 predniSONE (DELTASONE) 10 mg tablet Indications: Cellulitis of skin Take 4 tabs daily x 3 days, then 3 tabs x 3 days, 2 tabs x 3 days, then 1 tab x3 days with food. 30 tablet 06/18/2024 06/30/2024 Active therapeutic multivitamin tablet (20 sources) Start: 10-27-2013 take 1 tablet by mouth once daily at breakfast therapeutic multivitamin tablet Take 1 tablet by mouth daily with breakfast. 0 10/27/2013 Suspended Start: 10-27-2013 take 1 tablet by gareth th once daily at breakfast therapeutic multivitamin tablet Take 1 tablet by mouth daily with breakfast. 0 10/27/2013 Active Comment on above: Take 1 tablet by gareth th daily with breakfast. triamcinolone acetonide 1 mg/ml topical cream (9 sources) Corticosteroid Start: 07-08-2024 End: 01-04-2025 triamcinolone acetonide (KENALOG) 0.1 % cream Indications: Contact dermatitis, unspecified contact dermatitis type, unspecified trigger Apply to affected area two times a day. 80 g 1 07/08/2024 01/04/2025 Active Completed/Discontinued Medications Medication Drug Class(es) Dates Sig (Normalized) Sig (Original) amiodarone hydrochloride 200 mg oral tablet (8 sources) Antiarrhythmic Start: 11-02-2013 End: 01-21-2014 AMIODARONE HCL 200 MG TABS One tablet by mouth daily x 4 weeks then stop AMIODARONE HCL [id number] Maria A Bronson RN Benzocaine (1 source) Standardized Chemical Allergen Start: 01-12-2024 End: 01-12-2024 TOPICAL, X (OR/PROCEDURE) PRN, Starting on Fri01/12/24 at 0759, Until Fri01/12/24 at 0759, Intraprocedure bumetanide 2 mg oral tablet (11 sources) Loop Diuretic Start: 01-03-2024 End: 01-07-2024 take 1 tablet by mouth once daily Bumetanide 2 mg Tablet Discontinued 2 mg PO DAILY 30 30 0 January 03, 2024 12:00am January 07, 2024 12:54pm calcium chloride 0.0014 meq/ml / potassium chloride 0.004 meq/ml / sodium chloride 0.103 meq/ml / sodium lactate 0.028 meq/ml injectable solution (1 source) Start: 11-01-2024 End: 11-01-2024 take 30 mL intravenously every hour 30 mL/hr, INTRAVENOUS, CONTINUOUS, Starting on Fri11/01/24 at 1030, Until Fri11/01/24 at 1053, Preprocedure cephalexin 500 mg oral capsule (4 sources) Cephalosporin Antibacterial Start: 01-23-2024 End: 01-30-2024 take 1 capsule by mouth every twelve hours cephALEXin (KEFLEX) 500 mg capsule Take 1 capsule by mouth every 12 hours. 4 capsule 01/23/2024 01/30/2024 Discontinued docusate sodium 250 mg oral capsule (13 sources) Start: 04-01-2022 End: 04-29-2023 Docusate Sodium 250 mg capsule Indications: Chronic constipation Takes 8 pills per day 0 04/01/2022 04/29/2023 Discontinued Start: 11-02-2013 End: 07-13-2015 take 1 tablet by mouth twice daily as needed DOCUSATE SODIUM 100 MG TABS One tablet by mouth twice daily as needed DOCUSATE SODIUM [id number] Shantel Shepard PA-C Comment on above: Takes 8 pills per da y 1 ml fentaNYL 0.05 mg/ml injection (2 sources) Opioid Agonist Start: 11-01-2024 End: 11-01-2024 25-100 mcg, INTRAVENOUS, DIRECTED, Starting on Fri11/01/24 at 1030, Until Fri11/01/24 at 1429, DOSING DIRECTED BY PHYSICIAN FOR PROCEDURAL SEDATION ONLY, Intraprocedure Start: 01-12-2024 End: 01-12-2024 INTRAVENOUS, X (OR/PROCEDURE ) PRN, Starting on Fri01/12/24 at 0801, Until Fri01/12/24 at 0808, Intraprocedure furosemide 40 mg oral tablet (12 sources) Loop Diuretic Start: 09-15-2023 End: 01-03-2024 take 1 tablet by mouth once daily Furosemide (Lasix) 40 mg tablet Discontinued 40 mg PO DAILY 90 October 09, 2023 8:51am January 03, 2024 11:27am On Hold: pt stopped taking levoFLOXacin 500 mg oral tablet (18 sources) Quinolone Antimicrobial Start: 08-29-2013 End: 07-09-2017 take 1 tablet by mouth once daily Levofloxacin 500 MG tablet Discontinued 500 mg PO DAILY August 29, 2013 12:00am July 09, 2017 9:45am lidocaine hydrochloride 0.02 mg/mg topical gel (1 source) Antiarrhythmic, Amide Local Anesthetic Start: 01-12-2024 End: 01-12-2024 X (OR/PROCEDURE) PRN, Starting on Fri01/12/24 at 0759, Until Fri01/12/24 at 0759, Intraprocedure 24 hr metoprolol succinate 25 mg extended release oral tablet (16 sources) beta-Adrenergic Enzo Start: 11-02-2013 End: 06-05-2016 METOPROLOL SUCCINATE ER 25 MG [id number] One half tablet by mouth daily METOPROLOL SUCCINATE [id number] Shantel Shepard PA-C 5 ml midazolam 1 mg/ml injection (2 sources) Benzodiazepine Start: 11-01-2024 End: 11-01-2024 1-5 mg, INTRAVENOUS, DIRECTED, Starting on Fri11/01/24 at 1030, Until Fri11/01/24 at 1429, DOSING DIRECTED BY PHYSICIAN FOR PROCEDURAL SEDATION ONLY, Intraprocedure Start: 01-12-2024 End: 01-12-2024 INTRAVENOUS, X (OR/PROCEDURE ) PRN, Starting on Fri01/12/24 at 0801, Until Fri01/12/24 at 0801, Intraprocedure MULTIPLE VITAMIN (8 sources) Start: 11-02-2013 take 1 tablet by mouth once daily MULTIVITAMINS TABS One tablet by mouth daily MULTIPLE VITAMIN Leticia Fair RN Start: 11-02-2013 End: 07-13-2015 take 1 tablet by mouth once daily MULTIVITAMINS TABS One tablet by mouth daily MULTIPLE VITAMIN Shantel Shepard PA-C omeprazole 20 mg delayed release oral tablet (8 sources) Proton Pump Inhibitor Start: 11-02-2013 End: 02-08-2014 take 1 tablet by mouth once daily PRILOSEC OTC 20 MG TBEC One tablet by mouth daily OMEPRAZOLE MAGNESIUM [id number] Yaz Childress RN Start: 11-02-2013 End: 02-08-2014 take 1 tablet by mouth once daily PRILOSEC OTC 20 MG TBEC One tablet by mouth daily OMEPRAZOLE MAGNESIUM [id number] Yaz Childress RN polyethylene glycol 3350 66561 mg powder for oral solution (6 sources) Osmotic Laxative Start: 10-25-2020 End: 10-03-2022 polyethylene glycol 3350 (MIRALAX, GLYCOLAX) 17 gram/dose powder Indications: FH: colon cancer , Tubular adenoma of colon Use as directed for Miralax / Gatorade Bowel Prep Kit 238 g 0 10/25/2020 10/03/2022 Discontinued Comment on above: Use as directed for Miralax / Gatorade Bowel Prep Kit potassium chloride 10 meq extended release oral tablet (15 sources) Start: 12-08-2023 End: 02-20-2024 take 2 tablets by mouth once daily Potassium Chloride 10 mEq tablet extended release Discontinued 20 meq PO DAILY 180 December 08, 2023 12:41pm February 20, 2024 10:28am supplement Start: 10-09-2023 End: 12-08-2023 take 1 tablet by mouth once daily Potassium Chloride 10 mEq tablet extended release Discontinued 10 meq PO DAILY 90 October 09, 2023 12:00am December 08, 2023 12:41pm potassium chlori de ER (KLOR-CON M10) 10 mEq tablet Take 10 mEq by mouth two times a day. Suspended levothyroxine sodium 0.075 mg oral tablet (20 sources) l-Thyroxine Start: 08-27-2013 End: 08-04-2024 take 1 tablet by mouth once daily Levothyroxine 75 MCG tablet Discontinued 75 ug PO DAILY September 13, 2013 12:00am July 09, 2017 9:44am Comment on above: Take one pill daily for 6 days/week Take one pill daily for 5 days/week Take one pill daily for 7 days/week torsemide 10 mg oral tablet (20 sources) Loop Diuretic Start: 08-30-2013 DEMADEX 10 MG TABS .11 TORSEMIDE [id number] Maria A Bronson RN Start: 08-29-2013 End: 07-09-2017 take 1 tablet by mouth once daily Torsemide 10 MG tablet Discontinued 10 mg PO DAILY September 13, 2013 12:00am July 09, 2017 9:45am traMADol hydrochloride 50 mg oral tablet (8 sources) Opioid Agonist Start: 11-02-2013 End: 12-01-2013 take 1 tablet by mouth every six hours as needed TRAMADOL HCL 50 MG TABS One tablet by mouth every 6 hours as needed TRAMADOL HCL [id number] Yaz Childress RN warfarin sodium 6 mg oral tablet (20 sources) Vitamin K Antagonist Start: 04-06-2014 End: 10-12-2014 COUMADIN 6 MG TABS one tablet by mouth every evening with three 1mg tablets, then Take as directed WARFARIN SODIUM [id number] Yaz Childress RN Start: 01-31-2014 End: 10-12-2014 COUMADIN 1 MG TABS take 3 ta blets every evening with a 6 mg tablet 4 days/wk or as directed WARFARIN SODIUM [id number] Caleb Tarango MD Start: 01-31-2014 COUMADIN 1 MG TABS take one tablet daily with a 5mg tablet. WARFARIN SODIUM [id number] Caleb Tarango MD Start: 10-26-2013 End: 04-06-2014 COUMADIN 5 MG TABS Take as d irected WARFARIN SODIUM [id number] Caleb Tarango MD Problems Active Problems Problem Classification Problem Date Documented Date Episodic/Chronic Allergic reactions (5 sources) Contact dermatitis; Translations: [Unspecified contact dermatitis, unspecified cause] Onset: 5 07-08-2024 Episodic Cardiac and circulatory congenital anomalies (20 sources) Patent foramen ovale; Translations: [Atrial septal defect] Onset: 4 Chronic Cardiac dysrhythmias (20 sources) Paroxysmal atrial fibrillation; Translations: [Atrial fibrillation] Onset: 4 Resolved: 4 07-13-2015 Chronic Conduction disorders (20 sources) Cardiac pacemaker in situ; Translations: [Presence of cardiac pacemaker] Onset: 4 01-30-2024 Chronic Comment on above: [employer]tronic Renningers XT D R MRI [id number] Congestive heart failure; nonhypertensive (20 sources) Heart failure, unspecified; Translations: [Acute exacerbation of chronic heart failure (HCC)] Onset: 4 01-05-2024 Chronic Diabetes mellitus without complication (6 sources) Hyperglycemia; Translations: [Impaired fasting glucose] 02-25-2024 Episodic Disorders of lipid metabolism (17 sources) Mixed hyperlipidemia; Translations: [Mixed hyperlipidemia] Onset: 4 02-24-2024 Chronic Essential hypertension (17 sources) Essential hypertension; Translations: [Essential (primary) hypertension] Onset: 4 02-24-2024 Chronic Heart valve disorders (20 sources) Mitral valve stenosis; 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 @ [facility] 10/20/2013 Hypertension with complications and secondary hypertension (3 sources) Hypertensive heart failure; Translations: [Hypertensive heart disease with heart failure] Onset: 5 06-18-2024 Chronic Immunizations and screening for infectious disease (4 sources) Needs influenza immunization; Translations: [Encounter for immunization] Onset: 5 Episodic Nonspecific chest pain (14 sources) Chest pain, unspecified; Translations: [Chest pain] Onset: 4 12-01-2013 Episodic Osteoporosis (20 sources) Drug-induced osteoporosis; Translations: [Other osteoporosis without current pathological fracture] Onset: 0 10-26-2009 Chronic Other aftercare (2 sources) Post-discharge follow-up; Translations: [Encounter for follow-up examination after completed treatment for conditions other than malignant neoplasm] 01-05-2024 Episodic Other and unspecified benign neoplasm (1 source) Benign neoplastic disease; Translations: [Benign neoplasm, unspecified site] 11-05-2024 Episodic Other circulatory disease (14 sources) Electrocardiogram abnormal; Translations: [Abnormal electrocardiogram [ECG] [EKG]] Onset: 4 09-02-2013 Episodic Other endocrine disorders (6 sources) Hypogonadism 08-19-2022 Chronic Other lower respiratory disease (20 sources) Dyspnea; Translations: [Shortness of breath] Onset: 4 Resolved: 4 09-06-2013 Episodic Other lower respiratory disease (6 sources) Dyspnea on exertion; Translations: [Other forms of dyspnea] 12-31-2023 Episodic Other skin disorders (5 sources) Night sweats; Translations: [Generalized hyperhidrosis] Onset: 6 07-13-2015 Episodic Other skin disorders (1 source) Eczema; Translations: [Other specified follicular disorders] 07-08-2024 Episodic Tova-; endo-; and myocarditis; cardiomyopathy (except that caused by tuberculosis or sexually transmitted disease) (20 sources) Rheumatic heart disease; Translations: [Rheumatic heart disease, unspecified] Onset: 4 10-19-2013 Chronic Pleurisy; pneumothorax; pulmonary collapse (20 sources) Atelectasis; Translations: [Atelectasis] Onset: 4 Resolved: 8 05-21-2021 Episodic Pulmonary heart disease (20 sources) Pulmonary hypertension; Translations: [Pulmonary hypertension, unspecified] Onset: 4 09-02-2013 Chronic Residual codes; unclassified (8 sources) Flushing; Translations: [Flushing] 08-07-2022 Episodic Respiratory failure; insufficiency; arrest (adult) (20 sources) Ventilator finding; Translations: [Dependence on respirator [ventilator] status] Onset: 4 Resolved: 4 01-08-2024 Chronic Thyroid disorders (20 sources) Acquired hypothyroidism; Translations: [Hypothyroidism, unspecified] Onset: 9 Chronic Unclassified (2 sources) Replacement of mitral valve ; Translations: [Presence of prosthetic heart valve] Onset: 6 07-13-2015 Unclassified (20 sources) SUMMARY Onset: 4 Unclassified (2 sources) Hypogonadism; Translations: [Hypogonadism] 08-19-2022 Unclassified (1 source) History of colonic polyps; Translations: [History of colonic polyps] Onset: 7 Past or Other Problems Problem Classification Problem Date Documented Da te Episodic/Chronic Anal and rectal conditions (20 sources) Anal fistula; Translations: [Anal fistula] Onset: 2 Resolved: 8 03-23-2012 Episodic Bacterial infection (4 sources) Rheumatic fever; Translations: [Rheumatic fever without heart involvement] Onset: 4 09-02-2013 Episodic Complication of device; implant or graft (20 sources) Prosthetic mitral valve failure requiring replacement; Translations: [Breakdown (mechanical) of heart valve prosthesis, initial encounter] Onset: 4 01-13-2024 Episodic E Codes: Adverse effects of medical drugs (1 source) Adverse effect of unspecified drugs, medicaments and biological substances, initial encounter; Translations: [Drug-induced osteoporosis] Onset: 0 Episodic Fluid and electrolyte disorders (20 sources) Decreased plasma volume; Translations: [Hypovolemia] Onset: 4 Resolved: 4 Episodic Nutritional deficiencies (20 sources) Deficiency of macronutrients; Translations: [Unspecified severe protein-calorie malnutrition] Onset: 4 Resolved: 4 01-19-2024 Chronic Nutritional deficiencies (20 sources) Nutritional disorder; Translations: [Nutritional deficiency, unspecified] Onset: 4 Episodic Other and unspecified benign neoplasm (20 sources) History of polyp of colon; Translations: [Personal history of colonic polyps] Onset: 7 02-11-2017 Episodic Other and unspecified benign neoplasm (1 source) Benign neoplasm, unspecified site; Translations: [Multiple adenomatous polyps] Onset: 5 Episodic Other circulatory disease (20 sources) Low blood pressure; Translations: [Hypotension, unspecified] Onset: 4 Resolved: 4 Episodic Other NIGHT CLERK AUDITOR infection and poliomyelitis (20 sources) H/O: poliomyelitis; Translations: [Personal history of poliomyelitis] Onset: 9 Episodic Other connective tissue disease (20 sources) Polymyalgia rheumatica; Translations: [Polymyalgia rheumatica] Onset: 5 Resolved: 9 07-28-2008 Chronic Other gastrointestinal disorders (20 sources) Chronic constipation; Translations: [Other constipation] Onset: 2 Episodic Other infections (4 sources) H/O: rheumatic fever; Translations: [Personal history of other infectious and parasitic diseases] Onset: 4 05-31-2016 Episodic Other nervous system disorders (20 sources) Acute postoperative pain; Translations: [Other acute postprocedural pain] Onset: 4 Resolved: 8 05-21-2021 Episodic Other non-epithelial cancer of skin (20 sources) Malignant neoplasm of skin; Translations: [Unspecified malignant neoplasm of skin, unspecified] Onset: 4 Resolved: 8 08-27-2017 Episodic Other nutritional; endocrine; and metabolic disorders (20 sources) Hypoalbuminemia; Translations: [Other disorders of plasma-protein metabolism, not elsewhere classified] Onset: 4 Resolved: 4 Chronic Other screening for suspected conditions (not mental disorders or infectious disease) (11 sources) Patient encounter status; Translations: [Encounter for screening for malignant neoplasm of colon] Onset: 4 10-05-2024 Episodic Other skin disorders (1 source) Other specified follicular disorders; Translations: [Follicular eczema] Onset: 5 Episodic Residual codes; unclassified (20 sources) Family history of malignant neoplasm of gastrointestinal tract; Translations: [Family history of malignant neoplasm of digestive organs] Onset: 6 02-17-2006 Episodic Residual codes; unclassified (7 sources) Family history of cancer of colon; Translations: [Family history of malignant neoplasm of digestive organs] Onset: 6 10-05-2024 Episodic Residual codes; unclassified (1 source) Family history of malignant neoplasm of digestive organs; Translations: [Family history of colon cancer in father] Onset: 5 Episodic Screening and history of mental health and substance abuse codes (2 sources) Encounter for screening for depression; Translations: [Encounter for screening examination for other mental health and behavioral disorders] Onset: 5 Episodic Skin and subcutaneous tissue infections (3 sources) Cellulitis of skin; Translations: [Cellulitis, unspecified] Onset: 5 06-18-2024 Episodic Spondylosis; intervertebral disc disorders; other back problems (20 sources) Neck pain; Translations: [Cervicalgia] Onset: 6 Resolved: 1 06-06-2010 Episodic Sprains and strains (20 sources) Injury of shoulder and upper arm; Translations: [Sprain and strain of unspecified site of shoulder and upper arm] Onset: 6 Resolved: 1 06-06-2010 Episodic Unclassified (8 sources) Echocardiogram abnormal; Translations: [Abnormal findings on diagnostic imaging of heart and coronary circulation] Onset: 4 Resolved: 7 09-02-2013 Episodic Unclassified (3 sources) Patient encounter status 10-05-2024 Results Test Name Value Interpretation Reference Range Facility CNOV 03-22-2025 CNOV Office Visit (FAMPWS ) ----- RUPERTO CASTILLO ([id number]) 1935 M Date Time Provider Department 03/22/25 9:40 [facility] visit today, we recorded the following information about you: Pulse Respiration Blood pressure Weight 72/minute 16/minute 130/78 66.6 kg Moni Harden MA 03/22/2025 9:35 AM Addendum [facility] Dr. Ariel Weinberg [address] [place] [address], [address] Jesus Taylor MD 03/22/2025 11:19 AM Signed Chief Complaint Patient presents with: 6 Month Exam Immunizations: Flu vaccination HPI Ruperto Castillo is a 89 year old male who presents here today for 6 month follow up. No bowel, Gi, or urinary issues. Had colonoscopy done in October by Dr. Pope. Has chronic constipation issues. Osteoporosis: Taking Calcium and Vit D once a day. Has not tolerated Fosamax or Boniva, due to not being able to tolerate. HTN/MVR: Follows with Cardio at [facility]. Has pacemaker which is checked by [facility]. No chest pains, dizziness, or Shortness of Breath. Taking ASA 325 mg daily. Thyroid: Taking Synthroid 75 mcg daily. Follows with [facility] but is not happy with them so thinking about getting another opinion because his skin issue has returned. Past medical history, appointments, medications, allergies reviewed. Previous Medical History PAST MEDICAL HISTORY Diagnosis Date Diverticulosis of colon (without mention of hemorrhage) History of transfusion Mitral stenosis Osteoporosis Polio (HCC) Hx as a child. left arm weakness/atrophy. 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 AGE 4 Unspecified hypothyroidism Previous Surgical History PAST SURGICAL HISTORY Procedure Laterality Date COLONOSCOPY 11/01/2024 COLONOSCOPY FLX DX W/COLLJ SPEC WHEN PFRMD 07/31/2001 Colonoscopy COLONOSCOPY FLX DX W/COLLJ SPEC WHEN PFRMD 12/28/2007 Colonoscopy COLONOSCOPY FLX DX W/COLLJ SPEC WHEN PFRMD 03/07/2014 Colonoscopy COLONOSCOPY FLX DX W/COLLJ SPEC WHEN PFRMD 03/10/2017 no repeat needed COLONOSCOPY FLX DX W/COLLJ SPEC WHEN PFRMD 11/21/2020 HEART SURGERY HX I/D PERIANAL ABSCESS, SUPERFICIAL 03/23/2012 Right anterior perianal abscess PAST SURGICAL HISTORY OF Hemorrhoidectomy PAST SURGICAL HISTORY OF right rotator cuff REPLACEMENT MITRAL VALVE W/CARDIOPULMONARY BYP 2013 Mitral valve replacement SURG TX ANAL FISTULA INTERSPHINCTERIC 04/09/2012 TONSILLECTOMY PRIMARY/SECONDARY Tonsillectomy Family History FAMILY HISTORY Problem Relation Age of Onset Colon Cancer Father Osteoporosis Mother Ischemic Heart Disease Sister d. 65 during CABG. other (Mitral valve disease) Sister rheumatic fever Hx. Patient Allergies ALLERGIES Allergen Reactions Alendronate Unknown Fosamax [Alendronat* Intolerance musculoskeletal pain Current Medications Current Outpatient Medications on File Prior to Visit Medication Sig levothyroxine (SYNTHROID) 75 mcg tablet Take one pill daily for 7 days/week aspirin, enteric coated (ASPIRIN, ENTERIC COATED) 325 mg EC tablet Take 1 tablet by mouth once daily. therapeutic multivitamin tablet Take 1 tablet by mouth daily with breakfast. No current facility-administered medications on file prior to visit. Social History SOCIAL HISTORY[1] EXAM: BP 130/78 Pulse 72 Resp 16 Wt 66.6 kg (146 lb 13.2 oz) BMI 23.70 kg/m? General Appearance: Well appearing, alert, in no acute distress, well-hydrated, well nourished.. Lungs: Lungs clear to auscultation. No wheezing, rhonchi, rales.. Heart: RRR without murmur, gallop, or rubs. No ectopy. Health Maintenance List Advance Directive Discussion due on 05/26/2024 Medicare Advantage Annual Wellness Visit Never done Influenza Vaccine(1) due on 01/24/2025 Covid-19 Vaccine( - season) Never done RSV Vaccine(1 - 1-dose 75+ series) due on 04/06/2025 Shingrix Vaccine(2 of 3) due on 10/05/2025 DTaP,Tdap,Td Vaccine(8 - Td or Tdap) due on 05/02/2025 Depression Screening due on 10/05/2025 Anxiety Screening due on 10/05/2025 Diabetes Screening due on 03/17/2028 Pneumococcal Vaccine: 50+ Completed Data reviewed Appointment on 03/17/2025 Component Date Value Protein, Total 03/17/2025 7.0 Albumin 03/17/2025 4.1 Calcium, Total 03/17/2025 9.5 Bilirubin, Total 03/17/2025 0.3 Alkaline Phosphatase 03/17/2025 66 AST 03/17/2025 22 ALT 03/17/2025 16 Glucose 03/17/2025 95 BUN 03/17/2025 25 (H) Creatinine 03/17/2025 1.17 Sodium 03/17/2025 142 Potassium 03/17/2025 4.3 Chloride 03/17/2025 106 CO2 03/17/2025 29 Anion Gap 03/17/2025 7 (L) Estimated Glomerular Nirav* 03/17/2025 60 TSH 03/17/2025 0.860 WBC 03/17/2025 6.91 RBC 03/17/2025 4.43 Hemoglobin 03/17/2025 14.1 Hematocrit 03/17/2025 43.8 MCV 03/17/2025 98.9 MCH 03/17/2025 31.8 MCH (more content not included)... Normal [facility] CBC W Auto Differential pane l (Bld)on 03-17-2025 Basophils (Bld) [#/Vol] 0.05 10*3/uL Normal <0.11 [facility] Comment on above: Order Comment: Speci men Type: BLOOD SPECIMEN Ordering Facility: [facility] Address: [address] [place] [address] Performed By: #### 5 7021-8 #### [facility] CLIA [id number] [address] [place] [address] [place] Basophils/100 WBC (Bld) 0.7 % Normal [facility] Comment on above: Order Comment: Speci men Type: BLOOD SPECIMEN Ordering Facility: [facility] Address: [address] [place] [address] Performed By: #### 5 7021-8 #### [facility] CLIA [id number] [address] [place] [address] [place] Differential cell count method Nom (Bld) Auto Normal [facility] Comment on above: Order Comment: Speci men Type: BLOOD SPECIMEN Ordering Facility: [facility] Address: [address] [place] [address] Performed By: #### 5 7021-8 #### [facility] CLIA [id number] [address] [place] [address] [place] Eosinophils (Bld) [#/Vol] 0.18 10*3/uL Normal <0.46 [facility] Comment on above: Order Comment: Speci men Type: BLOOD SPECIMEN Ordering Facility: [facility] Address: [address] [place] [address] Performed By: #### 5 7021-8 #### [facility] CLIA [id number] [address] [place] [address] [place] Eosinophils/100 WBC (Bld) 2.6 % Normal [facility] Comment on above: Order Comment: Speci men Type: BLOOD SPECIMEN Ordering Facility: [facility] Address: [address] [place] [address] Performed By: #### 5 7021-8 #### [facility] CLIA [id number] [address] [place] [address] [place] Erythrocyte distribution width (RBC) [Ratio] 13.4 % Normal 11.5-15.0 [facility] Comment on above: Order Comment: Speci men Type: BLOOD SPECIMEN Ordering Facility: [facility] Address: [address] [place] [address] Performed By: #### 5 7021-8 #### [facility] CLIA [id number] [address] [place] [address] [place] Hematocrit (Bld) [Volume fraction] 43.8 % Normal 39.0-51.0 [facility] Comment on above: Order Comment: Speci men Type: BLOOD SPECIMEN Ordering Facility: [facility] Address: [address] [place] [address] Performed By: #### 5 7021-8 #### [facility] CLIA [id number] [address] [place] [address] [place] Hemoglobin (Bld) [Mass/Vol] 14.1 g/dL Normal 13.0-17.0 [facility] Comment on above: Order Comment: Speci men Type: BLOOD SPECIMEN Ordering Facility: [facility] Address: [address] [place] [address] Performed By: #### 5 7021-8 #### [facility] CLIA [id number] [address] [place] [address] [place] Immature granulocytes (Bld) [#/Vol] 10*3/uL Normal <0.10 [facility] Comment on above: Order Comment: Speci men Type: BLOOD SPECIMEN Ordering Facility: [facility] Address: [address] [place] [address] Performed By: #### 5 7021-8 #### [facility] CLIA [id number] [address] [place] [address] [place] Immature granulocytes/100 WBC (Bld) 0.3 % Normal [facility] Comment on above: Order Comment: Speci men Type: BLOOD SPECIMEN Ordering Facility: [facility] Address: [address] [place] [address] Performed By: #### 5 7021-8 #### [facility] CLIA [id number] [address] [place] [address] [place] Lymphocytes (Bld) [#/Vol] 1.56 10*3/uL Normal 1.00-4.00 [facility] Comment on above: Order Comment: Speci men Type: BLOOD SPECIMEN Ordering Facility: [facility] Address: [address] [place] [address] Performed By: #### 5 7021-8 #### [facility] CLIA [id number] [address] [place] [address] [place] Lymphocytes/100 WBC (Bld) 22.6 % Normal [facility] Comment on above: Order Comment: Speci men Type: BLOOD SPECIMEN Ordering Facility: [facility] Address: [address] [place] [address] Performed By: #### 5 7021-8 #### [facility] CLIA [id number] [address] [place] [address] [place] MCH (RBC) [Entitic mass] 31.8 pg Normal 26.0-34.0 [facility] Comment on above: Order Comment: Speci men Type: BLOOD SPECIMEN Ordering Facility: [facility] Address: [address] [place] [address] Performed By: #### 5 7021-8 #### [facility] CLIA [id number] [address] [place] [address] [place] MCHC (RBC) [Mass/Vol] 32.2 g/dL Normal 30.5-36.0 [facility] Comment on above: Order Comment: Speci men Type: BLOOD SPECIMEN Ordering Facility: [facility] Address: [address] [place] [address] Performed By: #### 5 7021-8 #### [facility] CLIA [id number] [address] [place] [address] [place] MCV (RBC) [Entitic vol] 98.9 fL Normal 80.0-100.0 [facility] Comment on above: Order Comment: Speci men Type: BLOOD SPECIMEN Ordering Facility: [facility] Address: [address] [place] [address] Performed By: #### 5 7021-8 #### [facility] CLIA [id number] [address] [place] [address] [place] Monocytes (Bld) [#/Vol] 0.69 10*3/uL Normal <0.87 [facility] Comment on above: Order Comment: Speci men Type: BLOOD SPECIMEN Ordering Facility: [facility] Address: [address] [place] [address] Performed By: #### 5 7021-8 #### [facility] CLIA [id number] [address] [place] [address] [place] Monocytes/100 WBC (Bld) 10.0 % Normal [facility] Comment on above: Order Comment: Speci men Type: BLOOD SPECIMEN Ordering Facility: [facility] Address: [address] [place] [address] Performed By: #### 5 7021-8 #### [facility] CLIA [id number] [address] [place] [address] [place] Neutrophils (Bld) [#/Vol] 4.41 10*3/uL Normal 1.45-7.50 [facility] Comment on above: Order Comment: Speci men Type: BLOOD SPECIMEN Ordering Facility: [facility] Address: [address] [place] [address] Performed By: #### 5 7021-8 #### [facility] CLIA [id number] [address] [place] [address] [place] Neutrophils/100 WBC (Bld) 63.8 % Normal [facility] Comment on above: Order Comment: Speci men Type: BLOOD SPECIMEN Ordering Facility: [facility] Address: [address] [place] [address] Performed By: #### 5 7021-8 #### [facility] CLIA [id number] [address] [place] [address] [place] Nucleated RBC (Bld) [#/Vol] 10*3/uL Normal <0.01 [facility] Comment on above: Order Comment: Speci men Type: BLOOD SPECIMEN Ordering Facility: [facility] Address: [address] [place] [address] Performed By: #### 5 7021-8 #### [facility] CLIA [id number] [address] [place] [address] [place] Nucleated RBC/100 WBC (Bld) [Ratio] 0.0 /100 WBC Normal [facility] Comment on above: Order Comment: Speci men Type: BLOOD SPECIMEN Ordering Facility: [facility] Address: [address] [place] [address] Performed By: #### 5 7021-8 #### [facility] CLIA [id number] [address] [place] [address] [place] Platelet mean volume (Bld) [Entitic vol] 11.1 fL Normal 9.0-12.7 [facility] Comment on above: Order Comment: Speci men Type: BLOOD SPECIMEN Ordering Facility: [facility] Address: [address] [place] [address] Performed By: #### 5 7021-8 #### [facility] CLIA [id number] [address] [place] [address] [place] Platelets (Bld) [#/Vol] 158 10*3/uL Normal 150-400 [facility] Comment on above: Order Comment: Speci men Type: BLOOD SPECIMEN Ordering Facility: [facility] Address: [address] [place] [address] Performed By: #### 5 7021-8 #### [facility] CLIA [id number] [address] [place] [address] [place] RBC (Bld) [#/Vol] 4.43 10*6/uL Normal 4.20-6.00 [facility] Comment on above: Order Comment: Speci men Type: BLOOD SPECIMEN Ordering Facility: [facility] Address: [address] [place] [address] Performed By: #### 5 7021-8 #### [facility] CLIA [id number] [address] [place] [address] [place] WBC (Bld) [#/Vol] 6.91 10*3/uL Normal 3.70-11.00 [facility] Comment on above: Order Comment: Speci men Type: BLOOD SPECIMEN Ordering Facility: [facility] Address: [address] [place] [address] Performed By: #### 5 7021-8 #### [facility] CLIA [id number] [address] [place] [address] [place] Comprehensive metabolic 2000 panelon 03-17-2025 Albumin [Mass/Vol] 4.1 g/dL Normal 3.9-4.9 [facility] Comment on above: Order Comment: Speci men Type: BLOOD SPECIMEN Ordering Facility: [facility] Address: [address] [place] [address] Performed By: #### 2 4323-8, 3016-3 #### [facility] CLIA [id number] [address] [place] [address] [place] ALP [Catalytic activity/Vol] 66 U/L Normal 38-113 [facility] Comment on above: Order Comment: Speci men Type: BLOOD SPECIMEN Ordering Facility: [facility] Address: [address] [place] [address] Performed By: #### 2 4323-8, 3016-3 #### [facility] CLIA [id number] [address] [place] [address] [place] ALT [Catalytic activity/Vol] 16 U/L Normal 10-54 [facility] Comment on above: Order Comment: Speci men Type: BLOOD SPECIMEN Ordering Facility: [facility] Address: [address] [place] [address] Performed By: #### 2 4323-8, 3016-3 #### [facility] CLIA [id number] [address] [place] [address] [place] Anion gap [Moles/Vol] 7 mmol/L Low 8-15 [facility] Comment on above: Order Comment: Speci men Type: BLOOD SPECIMEN Ordering Facility: [facility] Address: [address] [place] [address] Performed By: #### 2 4323-8, 3016-3 #### [facility] CLIA [id number] [address] [place] [address] [place] AST [Catalytic activity/Vol] 22 U/L Normal 14-40 [facility] Comment on above: Order Comment: Speci men Type: BLOOD SPECIMEN Ordering Facility: [facility] Address: [address] [place] [address] Performed By: #### 2 4323-8, 3015-3 #### [facility] CLIA [id number] [address] [place] [address] [place] Bilirubin [Mass/Vol] 0.3 mg/dL Normal 0.2-1.3 [facility] Comment on above: Order Comment: Speci men Type: BLOOD SPECIMEN Ordering Facility: [facility] Address: [address] [place] [address] Performed By: #### 2 4323-8, 6-3 #### [facility] CLIA [id number] [address] [place] [address] [place] Calcium [Mass/Vol] 9.5 mg/dL Normal 8.5-10.2 [facility] Comment on above: Order Comment: Speci men Type: BLOOD SPECIMEN Ordering Facility: [facility] Address: [address] [place], [place] [address] Performed By: #### 2 4323-8, 3016-3 #### [facility] CLIA [id number] [address] [place] [address] [place] Chloride [Moles/Vol] 106 mmol/L Normal 98-107 [facility] Comment on above: Order Comment: Speci men Type: BLOOD SPECIMEN Ordering Facility: [facility] Address: [address] [place] [address] Performed By: #### 2 4323-8, 3016-3 #### [facility] CLIA [id number] [address] [place] [address] [place] CO2 [Moles/Vol] 29 mmol/L Normal 22-30 [facility] Comment on above: Order Comment: Speci men Type: BLOOD SPECIMEN Ordering Facility: [facility] Address: [address] [place] [address] Performed By: #### 2 4323-8, 3016-3 #### [facility] CLIA [id number] [address] [place] [address] [place] Creatinine [Mass/Vol] 1.17 mg/dL Normal 0.73-1.22 [facility] Comment on above: Order Comment: Speci men Type: BLOOD SPECIMEN Ordering Facility: [facility] Address: [address] [place] [address] Performed By: #### 2 4323-8, 3016-3 #### [facility] CLIA [id number] [address] [place] [address] [place] eGFRcr SerPlBld CKD-EPI 2020 60 mL/min/1.73m??? Normal >=60 [facility] Comment on above: Order Comment: Speci men Type: BLOOD SPECIMEN Ordering Facility: [facility] Address: [address] [place] [address] Result Comment: Linda mated Glomerular Filtration Rate (eGFR) is calculated using the 2020 CKD-EPI creatinine equation. This equation utilizes serum creatinine, sex, and age as parameters. The creatinine assay has traceable calibration to isotope dilution-mass spectrometry. Refer to KDIGO guidelines for clinical interpretation. In patients with unstable renal function, e.g. those with acute kidney injury, the eGFR may not accurately reflect actual GFR. Performed By: #### 2 4323-8, 3016-3 #### [facility] CLIA [id number] [address] [place] [address] [place] Glucose [Mass/Vol] 95 mg/dL Normal 74-99 [facility] Comment on above: Order Comment: Elkin lombardo Type: BLOOD SPECIMEN Ordering Facility: [facility] Address: [address] [place] [address] Result Comment: The [place] [employer] (ADA) provides guidance for cutoff values for fasting glucose and random glucose. The ADA defines fasting as no caloric intake for at least 8 hours. Fasting plasma glucose results between 100 to 125 mg/dL indicate increased risk for diabetes (prediabetes). Fasting plasma glucose results greater than or equal to 126 mg/dL meet the criteria for diagnosis of diabetes. In the absence of unequivocal hyperglycemia, results should be confirmed by repeat testing. In a patient with classic symptoms of hyperglycemia or hyperglycemic crisis, random plasma glucose results greater than or equal to 200 mg/dL meet the criteria for diagnosis of diabetes. Reference: Standards of Medical Care in Diabetes 2016, [place] [employer]. Diabetes Care. 2016.39(Suppl 1). Performed By: #### 2 4323-8, 6-3 #### [facility] CLIA [id number] [address] [place] [address] [place] Potassium [Moles/Vol] 4.3 mmol/L Normal 3.7-5.1 [facility] Comment on above: Order Comment: Elkin lombardo Type: BLOOD SPECIMEN Ordering Facility: [facility] Address: [address] [place] [address] Performed By: #### 2 4323-8, 6-3 #### [facility] CLIA [id number] [address] [place] [address] [place] Protein [Mass/Vol] 7.0 g/dL Normal 6.3-8.0 [facility] Comment on above: Order Comment: Elkin lombardo Type: BLOOD SPECIMEN Ordering Facility: [facility] Address: [address] [place] [address] Performed By: #### 2 4323-8, 3016-3 #### [facility] CLIA [id number] [address] [place] [address] [place] Sodium [Moles/Vol] 142 mmol/L Normal 136-144 [facility] Comment on above: Order Comment: Speci men Type: BLOOD SPECIMEN Ordering Facility: [facility] Address: [address] [place] [address] Performed By: #### 2 4323-8, 3016-3 #### [facility] CLIA [id number] [address] [place] [address] [place] Urea nitrogen [Mass/Vol] 25 mg/dL High 9-24 [facility] Comment on above: Order Comment: Speci men Type: BLOOD SPECIMEN Ordering Facility: [facility] Address: [address] [place] [address] Performed By: #### 2 4323-8, 3016-3 #### [facility] CLIA [id number] [address] [place] [address] [place] TSH SerPl-aCncon 03-17-2025 TSH Qn 0.860 m[IU]/L Normal 0.270-4.200 [facility] Comment on above: Order Comment: Speci men Type: BLOOD SPECIMEN Ordering Facility: [facility] Address: [address] [place] [address] Performed By: #### 2 4323-8, 3016-3 #### [facility] CLIA [id number] [address] [place] [address] [place] Pacemaker Checkon 03-08-2025 Pacemaker Check [facility] [address] [place], [place] [address] Pacemaker Check Date of Service: 03/08/25 1652 MR#: [id number] Acct: [id number] Name: RUPERTO CASTILLO Rep #: [id number] : 1935 From: Anjana Smith Age/Sex: 89/M Location: [facility] Status: Signed Billing Codes PM Device Codes: 28311 PM Dev Prog Eval, Dual Assessment and Plan Assessment and Plan (1) Complete heart block by electrocardiogram: Status: Acute (2) Presence of cardiac pacemaker: Status: Acute Comment: Medtronic Marni XT MRI [id number] (3) Diastolic heart failure, NYHA class 3: Status: Acute 03/08/25 1653 Date Anjana Gonzalesmeñoeros Signature: Date (if applicable) CC: Normal [facility] Cardiology Visit Reporton Cardiology Visit Report [place] [address] [place], [place] [address] OFFICE VISIT Date of Service: 12/09/24 MR#: [id number] Acct: [id number] Name: RUPERTO CASTILLO Rep #: [id number] : 1935 Provider: ELICEO Banuelos Age/Sex: 88/M Location: [facility] Status: Signed HPI HPI History of Present Illness Details: Patient is an 88-year-old white male that comes in today for monitoring of his cardiovascular status. 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 Aldana at the [facility]. The patient had a thoracentesis done when he was hospitalized there and after the septal ablation developed complete heart block. A DDD pacemaker was placed and is now monitored through the [facility] device clinic. Patient's last device check May 11, 2024 showed RA pacing of 5.7% and RV pacing of 94.5%. There was less than 0.1% atrial arrhythmia burden this was consistent with atrial flutter on the review of the EGM's. There were no high ventricular rate episodes detected. The patient's last echocardiogram January 21, 2024 right after his valve and valve implant showed a #29 DERIC 3 valve with trace mitral valve regurgitation the peak gradient was 14 the mean gradient was 5. The patient's heart rate was 70 at the time. Left-ventricular outflow tract gradient peak was 44 mean of 30 From a cardiac standpoint, patient is doing well. He does not have any chest discomfort/heaviness/tigh tness. His exercise tolerance is stable for his age. He does not have any worsening symptoms of shortness of breath. He denies any PND. He does not have any orthopnea. He does not have any symptoms of congestive heart failure. He does not have any palpitations that he is aware of. He does not have any lightheadedness or dizziness. He does not have any near-syncope or syncope. He does not have any lower extremity edema. He does not have any symptoms of claudication. 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 Required: No Accompanied by: Self Is patient in pain?: No Allergies alendronate sodium (From Fosamax) Allergy (Verified 12/09/24 08:34) Unknown Medications ???Medication ???Instructions ???Recorded ???Confirmed ???Type levothyroxine 75 mcg tablet 75 mcg PO DAILY thyroid 08/27/13 0 12/09/24 History aspirin 325 mg tablet 325 mg PO DAILY antiplatelet 06/0412/09/24 History Have you fallen in the past year?: No PFSH Medical History Complete heart block by electrocardiogram Presence of cardiac pacemaker Hypothyroid Hypogonadism Rheumatic tricuspid insufficiency Paroxysmal atrial fibrillation Rheumatic aortic stenosis Pulmonary HTN Tricuspid regurgitation Mitral valve stenosis, rheumatic Surgical History S/P transcatheter mitral valve replacement (TMVR) History of mitral valve replacement with bioprosthetic valve ( 10/20/13) History of left heart catheterization (LHC) History of mitral valve replacement (10/20/13) Family History Father Colon cancer Sister FH: mitral valve repair Mother No problems noted. Social History Smoking Status: Never smoker alcohol intake: never substance use type: does not use caffeine: No what type of physical activity do you participate in: none seatbelt use: always do you feel safe at home: Yes ROS Const Const: Negative for fatigue or weakness Eyes Eyes: Negative for change in vision ENT ENT: Negative for dizziness or balance problems Cardio Chest Pain: No Palpitations: No Edema: None Resp Respiratory: Negative for SOB with activity, SOB at rest or SOB orthopnea SOB lying down GI GI: Negative nausea or heartburn Musc Musc: Negative for balance problems Neuro Neuro: Negative for dizziness, lightheadedness, near syncope, syncope or weakness Endo Endo: Negative for fatigue Cardiology Exam Const Appearance: cooperative, healthy appearing, comfortable, no acute distress and well developed Looks much younger than his stated age gets around normally up and down off the exam table without any effort at all. Head Head: normal to (more content not included)... Normal [facility] Anti-dsDNA Abon 11-16-2024 ANTI-DNA (DS)AB 1 IU/mL Normal 0-9 [facility] Comment on above: Result Comment: Nega tive <5 Equivocal 5 - 9 Positive >9 Performed By: #### M 100.2200, L3890.6301, L3890.6202, L3100.7950, L3100.5500, L400.2010, L3100.3450 #### [facility] [address] [place], [address] Antinuclear Antibody, IFAon 11-16-2024 MICHAEL, IFA Negative Normal . [facility] Comment on above: Result Comment: Nega tive <1:80 Borderline 1:80 Positive >1:80 ICAP nomenclature: AC-0 For more information about Hep-2 cell patterns use ANApatterns.org, the official website for the International Consensus on Antinuclear Antibody (MICHAEL) Patterns (ICAP). Performed at: [address] [id number] [employer] Applicator: Taye Nguyen PhD, Phone: [phone] Performed By: #### M 100.2200, L3890.6301, L3890.6202, L3100.7950, L3100.5500, L400.2010, L3100.3450 #### [facility] [address] [place], [place], [id number] Protein Electroph, Son 11-15 Albumin [Mass/Vol] 3.5 g/dL Normal 2.9-4.4 [facility] Comment on above: Performed By: #### M 100.2200, L3890.6301, L3890.6202, L3100.7950, L3100.5500, L400.2010, L3100.3450 #### [facility] [address] [place], [place], [id number] Albumin/Globulin [Mass ratio] 1.2 {ratio} Normal 0.7-1.7 [facility] Comment on above: Performed By: #### M 100.2200, L3890.6301, L3890.6202, L3100.7950, L3100.5500, L400.2010, L3100.3450 #### [facility] [address] [place], [address] ALPHA-1 GLOBUL 0.2 g/dL Normal 0.0-0.4 [facility] Comment on above: Performed By: #### M 100.2200, L3890.6301, L3890.6202, L3100.7950, L3100.5500, L400.2010, L3100.3450 #### [facility] [address] [place], [address] ALPHA-2 GLOBUL 0.6 g/dL Normal 0.4-1.0 [facility] Comment on above: Performed By: #### M 100.2200, L3890.6301, L3890.6202, L3100.7950, L3100.5500, L400.2010, L3100.3450 #### [facility] [address] [place], [address] BETA GLOBULIN 1.0 g/dL Normal 0.7-1.3 [facility] Comment on above: Performed By: #### M 100.2200, L3890.6301, L3890.6202, L3100.7950, L3100.5500, L400.2010, L3100.3450 #### [facility] [address] [place], [address] GAMMA GLOBULIN 1.1 g/dL Normal 0.4-1.8 [facility] Comment on above: Performed By: #### M 100.2200, L3890.6301, L3890.6202, L3100.7950, L3100.5500, L400.2010, L3100.3450 #### [facility] [address] [place], [address] Globulin (S) [Mass/Vol] 2.9 g/dL Normal 2.2-3.9 [facility] Comment on above: Performed By: #### M 100.2200, L3890.6301, L3890.6202, L3100.7950, L3100.5500, L400.2010, L3100.3450 #### [facility] [address] [place], [address] INTERPRETATION Comment Normal . [facility] Comment on above: Result Comment: Prot ein electrophoresis scan will follow via computer, mail, or garden consultant delivery. Performed By: #### M 100.2200, L3890.6301, L3890.6202, L3100.7950, L3100.5500, L400.2010, L3100.3450 #### [facility] [address] [place], [address] M-SPIKE Not Observed Normal Not Observed [facility] Comment on above: Performed By: #### M 100.2200, L3890.6301, L3890.6202, L3100.7950, L3100.5500, L400.2010, L3100.3450 #### [facility] [address] [place], [address] NOTE: Comment Normal . [facility] Comment on above: Result Comment: The SPE pattern appears unremarkable. Evidence of monoclonal protein is not apparent. Performed at: [facility] [id number] [place] Applicator: Taye Nguyen PhD, Phone: [phone] Performed By: #### M 100.2200, L3890.6301, L3890.6202, L3100.7950, L3100.5500, L400.2010, L3100.3450 #### [facility] [address] [place], [place], [id number] Protein [Mass/Vol] 6.4 g/dL Normal 6.0-8.5 [facility] Comment on above: Performed By: #### M 100.2200, L3890.6301, L3890.6202, L3100.7950, L3100.5500, L400.2010, L3100.3450 #### [facility] [address] [place], [address] Urine Cultureon 11-13-2024 URC UA WITH REFLEX TO CU LTURE Culture exhibits no growth. Normal [facility] Comment on above: Performed By: #### M 100.2200, L3890.6301, L3890.6202, L3100.7950, L3100.5500, L400.2010, L3100.3450 #### [facility] [address] [place], [place], [address] Albumin Elph [Mass/Vol]Order ed By: Irene Leyva on 11-12-2024 Albumin [Mass/Vol] 3.5 g/dL 2.9-4.4 [facility] Bilirubin Test strip Ql (U)O rdered By: Irene Leyva on 11-12-2024 Bilirubin Ql (U) Negative Negative [facility] Hepatitis B Surface Antibody on 11-12-2024 HEP B Surf Ab Non-Reactive Normal [facility] Comment on above: Order Comment: UA WI TH REFLEX TO CULTURE Result Comment: <8.5 mIU/mL: Non-Reactive 8.5<= x <11.5 mIU/mL: Indeterminate >=11.5 mIU/mL: Reactive Non Reactive: Inconsistent with immunity less than <10 mIU/mL Reactive: Consistent with immunity greater than or equal to 10 mIU/mL Performed By: #### M 100.2200, L3890.6301, L3890.6202, L3100.7950, L3100.5500, L400.2010, L3100.3450 #### [facility] [address] [place], [place], [address] Hepatitis C Antibodyon 11-12 Hepatitis C Ab Non-Reactive Normal Nonreactive [facility] Comment on above: Result Comment: Reac tive: Presumptive evidence of antibodies to HCV. Follow CDC recommendations for supplemental testing. Non-Reactive: Antibodies to HCV were not detected; does not exclude the possibility of exposure to HCV Reactive Results are presumptive evidence of antibodies to HCV. Follow CDC recommendations for supplemental testing. Order confirmation testing: HCV Quant by PCR testing - HCVPCR #[id number] Non Reactive: < 0.8 Equivocal: >/= 0.8 to < 1.0 Reactive: >/= 1.0 The CDC requires that a reactive/equivocal HCV antibody result be sent out for confirmation. HCV Quant by PCR testing. Performed By: #### M 100.2200, L3890.6301, L3890.6202, L3100.7950, L3100.5500, L400.2010, L3100.3450 #### [facility] [address] [place], [address] Ketones Test strip Ql (U)Ord ered By: Irene Leyva on 11-12-2024 Ketones Ql (U) Negative Negative [facility] Nitrite Test strip Ql (U)Ord ered By: Irene Leyva on 11-12-2024 Nitrite Ql (U) Negative Negative [facility] No Panel InformationOrdered By: Irene Leyva on 11-12-2024 Addendum Document Comment . [facility] Comment on above: The SPE pattern appe ars unremarkable. Evidence ofmonoclonal protein is not apparent.Performed at: [facility] [employer] [id number] Director: Taye Nguyen PhD, Phone: [phone] Protein Fractions Elph [Inte rp]Ordered By: Irene Leyva on 11-12-2024 Protein Fractions [Interp] Comment . [facility] Comment on above: Protein electrophore sis scan will follow via computer,mail, or garden consultant delivery. Protein Test strip Ql (U)Ord ered By: Irene Leyva on 11-12-2024 Protein Ql (U) 15 mg/dl High Negative [facility] Serum DNA double strand anti body assay (units/volume)Ordered By: Irene Leyva on 11-12-2024 DNA double strand Ab Qn (S) 1 [IU]/mL 0-9 [facility] Comment on above: Negative <5 Equivoca l 5 - 9 Positive >9 Serum albumin to globulin ra kylee by protein electrophoresisOrdered By: Irene Leyva on 11-12-2024 Albumin/Globulin Elph [Mass ratio] 1.2 0.7-1.7 [facility] Serum globulin measurement ( mass/volume)Ordered By: Irene Leyva on 11-12-2024 Globulin (S) [Mass/Vol] 2.9 g/dL 2.2-3.9 [facility] Serum hepatitis B virus surf gorge antibody detectionOrdered By: Irene Leyva on 11-12-2024 HBV surface Ab Ql (S) Non-Reactive [facility] Comment on above: <8.5 mIU/mL: Non-Ann ctive8.5<= x <11.5 mIU/mL: Indeterminate>=11.5 mIU/mL: Reactive Non Reactive: Inconsistent with immunity less than <10 mIU/mL Reactive: Consistent with immunity greater than or equal to 10 mIU/mL Serum or plasma beta globuli n measurement by electrophoresis (mass/volume)Ordered By: Irene Leyva on 11-12-2024 Beta globulin Elph [Mass/Vol] 1.0 g/dL 0.7-1.3 [facility] Serum or plasma protein madisyn urement (mass/volume)Ordered By: Irene Leyva on 11-12-2024 Protein [Mass/Vol] 6.4 g/dL 6.0-8.5 [facility] Serum or plasma protein mono clonal measurement by electrophoresis (mass/volume)Ordered By: Irene Leyva on 11-12-2024 Protein.monoclonal Elph [Mass/Vol] Not Observed g/dL Not Observed [facility] Urinalysis, Routine (Dipstic k)on 11-12-2024 BILIRUBIN URINE Negative Normal Negative [facility] Comment on above: Order Comment: CLEAN CATCH Performed By: #### M 100.2200, L3890.6301, L3890.6202, L3100.7950, L3100.5500, L400.2010, L3100.3450 #### [facility] [address] [place], [address] Clarity (U) Clear Normal Clear [facility] Comment on above: Order Comment: CLEAN CATCH Performed By: #### M 100.2200, L3890.6301, L3890.6202, L3100.7950, L3100.5500, L400.2010, L3100.3450 #### [facility] [address] [place], [address] Color (U) Straw Normal Yellow [facility] Comment on above: Order Comment: CLEAN CATCH Performed By: #### M 100.2200, L3890.6301, L3890.6202, L3100.7950, L3100.5500, L400.2010, L3100.3450 #### [facility] [address] [place], [address] GLUCOSE, UR Normal Normal Normal [facility] Comment on above: Order Comment: CLEAN CATCH Performed By: #### M 100.2200, L3890.6301, L3890.6202, L3100.7950, L3100.5500, L400.2011, L3100.3450 #### [facility] [address] [place], [address] KETONE UR Negative Normal Negative [facility] Comment on above: Order Comment: CLEAN CATCH Performed By: #### M 100.2200, L3890.6301, L3890.6202, L3100.7950, L3100.5500, L400.2010, L3100.3450 #### [facility] [address] [place], [address] LEUK ESTERASE 25 /ul Abnormal Negative [facility] Comment on above: Order Comment: CLEAN CATCH Performed By: #### M 100.2200, L3890.6301, L3890.6202, L3100.7950, L3100.5500, L400.2010, L3100.3450 #### [facility] [address] [place], [address] Nitrite Ql (U) Negative Normal Negative [facility] Comment on above: Order Comment: CLEAN CATCH Performed By: #### M 100.2200, L3890.6301, L3890.6202, L3100.7950, L3100.5500, L400.2010, L3100.3450 #### [facility] [address] [place], [address] OCCULT BLOOD-UR Negative Normal Negative [facility] Comment on above: Order Comment: CLEAN CATCH Performed By: #### M 100.2200, L3890.6301, L3890.6202, L3100.7950, L3100.5500, L400.2010, L3100.3450 #### [facility] [address] [place], [address] pH UR 7.0 Normal 5.0 - 8.0 [facility] Comment on above: Order Comment: CLEAN CATCH Performed By: #### M 100.2200, L3890.6301, L3890.6202, L3100.7950, L3100.5500, L400.2010, L3100.3450 #### [facility] [address] [place], [address] PROT DIPSTX 15 mg/dl Abnormal Negative [facility] Comment on above: Order Comment: CLEAN CATCH Performed By: #### M 100.2200, L3890.6301, L3890.6202, L3100.7950, L3100.5500, L400.2010, L3100.3450 #### [facility] [address] [place], [address] SP.GR. DIPSTX 1.015 Normal 1.002-1.030 [facility] Comment on above: Order Comment: CLEAN CATCH Performed By: #### M 100.2200, L3890.6301, L3890.6202, L3100.7950, L3100.5500, L400.2010, L3100.3450 #### [facility] [address] [place], [address] UROBILI Normal Normal Normal [facility] Comment on above: Order Comment: CLEAN CATCH Performed By: #### M 100.2200, L3890.6301, L3890.6202, L3100.7950, L3100.5500, L400.2010, L3100.3450 #### [facility] [address] [place], [address] Urine clarityOrdered By: Nadeen villeda [place] on 11-12-2024 Clarity (U) Clear Clear [facility] Urine color determinationOrd ered By: Irene [place] on 11-12-2024 Color (U) Straw Yellow [facility] Urine cultureOrdered By: Nadeen villeda [place] on 11-12-2024 Bacteria identified Cx Nom (U) Culture exhibits no growth. [facility] Urine glucose detectionOrder ed By: Irene Leyva on 11-12-2024 Glucose Ql (U) Normal mg/dl Normal [facility] Urine leukocyte esterase det ection by dipstickOrdered By: Irene Leyva on 11-12-2024 Leukocyte esterase Test strip Ql (U) 25 /ul High Negative [facility] Urine pHOrdered By: Irene sanchez on 11-12-2024 pH (U) 7.0 [pH] 5.0 - 8.0 [facility] Urine specific gravity measu rementOrdered By: Irene Leyva on 11-12-2024 Specific gravity (U) [Rel density] 1.015 1.002-1.030 [facility] Urine urobilinogen measureme ntOrdered By: Irene Leyva on 11-12-2024 Urobilinogen Ql (U) Normal mg/dl Normal [facility] CNOVon 11-08-2024 CNOV Office Visit (GENSWS ) ----- RUPERTO CASTILLO ([id number]) 1935 Date Time Provider Department 11/08/24 9:00 AM PENNIE RUELAS GENZANA During your visit today, we recorded the following information about you: Pennie Ruelas APRN.CNP 11/08/2024 9:20 AM Signed FOLLOW UP VISIT - ENDOSCOPY Ruperto Castillo 1935 [id number] REFERRING PHYSICIAN: No referring provider defined for this encounter. Ruperto Castillo is a patient I am following for screening colonoscopy- hx of polyps AND family hx of colon cancer in father. Dr. Pope performed lower endoscopy on 11/01/24. The patient was found to have Impression: - Preparation of the colon was poor. - Stool in the entire examined colon. - Two small (4-6 mm) polyps in the sigmoid colon and in the transverse colon, removed with a cold snare. Resected and retrieved. - Non-bleeding internal hemorrhoids. - The examination was otherwise normal. Pathology demonstrated: FINAL DIAGNOSIS A. Colon, transverse, polyp, polypectomy - Tubular adenoma B. Colon, sigmoid, polyp, polypectomy - Tubular adenoma The patient notes no complaints since the procedure. VITALS: There were no vitals taken for this visit. General: patient is alert, cooperative, pleasant and in no acute distress On examination, the abdomen is benign. Assessment ASSESSMENT/PLAN: 1. Multiple adenomatous polyps - ICD9: 229.9, ICD10: D36.9 The operative findings and pathology report were reviewed with the patient, and the patient has had the opportunity to ask questions and have questions answered. If the patient notes any problems or changes in bowel function, the patient should contact me immediately. Otherwise I recommend follow up endoscopy in 3-5 years due to poor bowel prep. HM updated. Discussed treatment plan and patient voices understanding. Patient's questions answered appropriately. Medications and potential side effects were discussed and patient voices understanding. Return to the office as scheduled or as needed for worsening/no improvement. __ Pennie Ruelas APRN.SHIPYARD PAINTER Allergies As of Date: 11/08/2024 Noted Allergy Reaction ALENDRONATE 08/30/2013 16 - Unknown FOSAMAX (ALENDRONATE SODIUM) 07/10/2006 5 - Intolerance Comments: musculoskeletal pain Date Reviewed: 11/08/2024 Reviewed by: Sue Beltrán RN - Fully Assessed Reason for Visit: Follow Up [171] Cmt: FU to colonoscopy Primary Visit Diagnosis:Multiple adenomatous polyps [D36.9] Prescriptions as of 11/08/2024 - levothyroxine (SYNTHROID) 75 mcg tablet Take one pill daily for 7 days/week - triamcinolone acetonide (KENALOG) 0.1 % cream Apply to affected area two times a day. - aspirin, enteric coated (ASPIRIN, ENTERIC COATED) 325 mg EC tablet Take 1 tablet by mouth once daily. - therapeutic multivitamin tablet Take 1 tablet by mouth daily with breakfast. Meds Comments as of 04/13/2020: Uses Mineral Oil prn for constipation. 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] 10/26/2009 Deiarfo-es-bmh [K60.30] 03/23/2012 Perianal abscess [K61.0] 03/23/2012 08/27/2017 Skin cancer [C44.90] 06/14/2013 08/27/2017 Rheumatic heart disease [I09.9] 10/19/2013 Mitral stenosis with insufficiency [I05.2] 10/19/2013 Screening for colon cancer [Z12.11] 10/19/2013 Mechanically assisted ventilation [Z99.11] 10/20/2013 10/21/2013 Intravascular volume depletion [E86.1] 10/20/2013 10/23/2013 Acute postoperative pain [G89.18] 10/20/2013 08/27/2017 Hypotension [I95.9] 10/21/2013 10/25/2013 PFO (patent foramen ovale) [Q21.12] 10/21/2013 Hypoalbuminemia [E88.09] 10/21/2013 10/25/2013 Nutrition disorder [E63.9] 10/21/2013 Atelectasis [J98.11] 10/22/2013 08/27/2017 A-fib (HCC) [I48.91] 10/23/2013 08/12/2016 SUMMARY [V999.95] 10/23/2013 History of mitral valve replacement with biopro*11/02/2013 History of colonic polyps [Z86.0100] 02/11/2017 Chronic constipation [K59.09] 09/28/2021 Pulmonary hypertension (HCC) [I27.20] 10/03/2022 Acute heart failure with preserved ejection fra*01/08/2024 Congestive heart failure (HCC) [I50.9] 01/03/2024 Acute on chronic respiratory failure (HCC) [J96*01/08/2024 01/30/2024 Pleural effusion [J90] 01/08/2024 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 Normal [facility] [id number] 11-01-2024 [id number] HNO ID: [id number] Author: LAILA GARLAND RN Service: ? Author Type: Registered Nurse Type: [id number] Filed: 11/01/2024 10:58 Note Text: The patient received a copy of Colonoscopy discharge instructions that contain information for how to contact the physician who performed the procedure and when to seek medical care. Normal [facility] Colonoscopyon 11-01-2024 [facility] Patient Name: Ruperto Castillo Procedure Date: 11/01/2024 10:10 AM Date of : 1935 Admit Type: Outpatient Age: 88 Gender: Male Note Status: Finalized Procedure: Colonoscopy Indications: Screening in patient at increased risk: Family history of 1st-degree relative with colorectal cancer Providers: Fritz Pope MD Patient Profile: This is an 88 year old male. Refer to note in patient chart for documentation of history and physical. Last Colonoscopy: October 2020. Referring Physician: Pennie Ruelas (Referring ) Medicines: Fentanyl 50 micrograms IV, Midazolam 3 mg IV Complications: No immediate complications. Estimated blood loss: Minimal. Requesting Provider: Procedure: Pre-Anesthesia Assessment: - Prior to the procedure, a History and Physical was performed, and patient medications and allergies were reviewed. The patient's tolerance of previous anesthesia was also reviewed. The risks and benefits of the procedure and the sedation options and risks were discussed with the patient. All questions were answered, and informed consent was obtained. Prior Anticoagulants: The patient has taken no anticoagulant or antiplatelet agents except for aspirin. ASA Grade Assessment: III - A patient with severe systemic disease. After reviewing the risks and benefits, the patient was deemed in satisfactory condition to undergo the procedure. After I obtained informed consent, the scope was passed under direct vision. Throughout the procedure, the patient's blood pressure, pulse, and oxygen saturations were monitored continuously. The Colonoscope was introduced through the anus and advanced to the cecum, identified by appendiceal orifice and ileocecal valve. The colonoscopy was performed without difficulty. The patient tolerated the procedure well. The quality of the bowel preparation was poor. The ileocecal valve, appendiceal orifice, and rectum were photographed. Moderate Sedation: The administration of moderate sedation was initiated at 10:23. Moderate (conscious) sedation was personally administered by the endoscopist. The following parameters were monitored: oxygen saturation, heart rate, blood pressure, respiratory rate, EKG, adequacy of pulmonary ventilation, and response to care. Total physician intraservice time was 20 minutes. Findings: The perianal and digital rectal examinations were normal. Liquid semi-liquid stool was found in the entire colon, precluding visualization. Lavage of the area was performed using a large amount of normal saline, resulting in incomplete clearance with fair visualization. Two sessile polyps were found in the sigmoid colon and transverse colon. The polyps were small (4-6 mm) in size. These polyps were removed with a cold snare. Resection and retrieval were complete. Non-bleeding internal hemorrhoids were found during retroflexion. The hemorrhoids were mild and small. The exam was otherwise without abnormality. Impression: - Preparation of the colon was poor. - Stool in the entire examined colon. - Two small (4-6 mm) polyps in the sigmoid colon and in the transverse colon, removed with a cold snare. Resected and retrieved. - Non-bleeding internal hemorrhoids. - The examination was otherwise normal. Recommendation: - Patient has a contact number available for emergencies. The signs and symptoms of potential delayed complications were discussed with the patient. Return to normal activities tomorrow. Written discharge instructions were provided to the patient. - Resume previous diet. - Continue present medications. - Await pathology results. - Repeat colonoscopy in 5 years for surveillance. - Return to referring provider at appointment to be scheduled. - Resume previous antiplatelet medication tomorrow at prior dose. Procedure Code(s): --- Professional --- 20205, Colonoscopy, flexible; with removal of tumor(s), polyp(s), or other lesion(s) by snare technique G0500, Moderate sedation services provided by the same physician or other qualified health career and technology education teacher performing a gastrointestinal endoscopic service that sedation supports, requiring the presence of an independent trained observer to assist in the monitoring of the patient's level of consciousness and physiological status; initial 15 minutes of intra-service time; patient age 5 years or older (additional time may be reported with 19541, as appropriate) Diagnosis Code(s): --- Professional --- Z12.11, Encounter for screening for malignant neoplasm of colon Z80.0, Family history of malignant neoplasm of digestive organs K64.8, Other hemorrhoids D12.5, Benign neoplasm of sigmoid colon D12.3, Benign neoplasm of transverse colon (hepatic flexure or splenic flexure) CPT copyright 2020 [employer]. All rights reserved. The codes documented in (more content not included)... Normal [facility] Colonoscopy Study observatio non 11-01-2024 [facility] Patient Name: Ruperto Castillo Procedure Date: 11/01/2024 10:10 AM Date of : 1935 Admit Type: Outpatient Age: 88 Gender: Male Note Status: Finalized Procedure: Colonoscopy Indications: Screening in patient at increased risk: Family history of 1st-degree relative with colorectal cancer Providers: Fritz Pope MD Patient Profile: This is an 88 year old male. Refer to note in patient chart for documentation of history and physical. Last Colonoscopy: October 2020. Referring Physician: Pennie Ruelas (Referring MD) Medicines: Fentanyl 50 micrograms IV, Midazolam 3 mg IV Complications: No immediate complications. Estimated blood loss: Minimal. Requesting Provider: Procedure: Pre-Anesthesia Assessment: - Prior to the procedure, a History and Physical was performed, and patient medications and allergies were reviewed. The patient's tolerance of previous anesthesia was also reviewed. The risks and benefits of the procedure and the sedation options and risks were discussed with the patient. All questions were answered, and informed consent was obtained. Prior Anticoagulants: The patient has taken no anticoagulant or antiplatelet agents except for aspirin. ASA Grade Assessment: III - A patient with severe systemic disease. After reviewing the risks and benefits, the patient was deemed in satisfactory condition to undergo the procedure. After I obtained informed consent, the scope was passed under direct vision. Throughout the procedure, the patient's blood pressure, pulse, and oxygen saturations were monitored continuously. The Colonoscope was introduced through the anus and advanced to the cecum, identified by appendiceal orifice and ileocecal valve. The colonoscopy was performed without difficulty. The patient tolerated the procedure well. The quality of the bowel preparation was poor. The ileocecal valve, appendiceal orifice, and rectum were photographed. Moderate Sedation: The administration of moderate sedation was initiated at 10:23. Moderate (conscious) sedation was personally administered by the endoscopist. The following parameters were monitored: oxygen saturation, heart rate, blood pressure, respiratory rate, EKG, adequacy of pulmonary ventilation, and response to care. Total physician intraservice time was 20 minutes. Findings: The perianal and digital rectal examinations were normal. Liquid semi-liquid stool was found in the entire colon, precluding visualization. Lavage of the area was performed using a large amount of normal saline, resulting in incomplete clearance with fair visualization. Two sessile polyps were found in the sigmoid colon and transverse colon. The polyps were small (4-6 mm) in size. These polyps were removed with a cold snare. Resection and retrieval were complete. Non-bleeding internal hemorrhoids were found during retroflexion. The hemorrhoids were mild and small. The exam was otherwise without abnormality. Impression: - Preparation of the colon was poor. - Stool in the entire examined colon. - Two small (4-6 mm) polyps in the sigmoid colon and in the transverse colon, removed with a cold snare. Resected and retrieved. - Non-bleeding internal hemorrhoids. - The examination was otherwise normal. Recommendation: - Patient has a contact number available for emergencies. The signs and symptoms of potential delayed complications were discussed with the patient. Return to normal activities tomorrow. Written discharge instructions were provided to the patient. - Resume previous diet. - Continue present medications. - Await pathology results. - Repeat colonoscopy in 5 years for surveillance. - Return to referring provid (more content not included)... PROVATION [facility] Radiology Study observation (narrative) [facility] HISTORY PHYSICALon HISTORY PHYSICAL HNO ID: [id number] Author: FRITZ POPE MD Service: General Surgery Author Type: Physician Type: H&P Filed: 11/01/2024 10:08 Note Text: HISTORY AND PHYSICAL Ruperto Eboni Mast : 1935 REFERRING PHYSICIAN: Jesus Taylor [address] [facility] [address] CHIEF COMPLAINT: Patient presents with: Consult: Here for colonoscopy D/T previous polyps HPI: Ruperto is a 88 year old male referred for endoscopy. Ruperto notes due for screening colonoscopy- hx of polyps (2020). Ruperto denies abdominal pain. Ruperto denies diarrhea. Ruperto notes chronic constipation. -uses psyllium husk Ruperto denies a change in bowel habits. Ruperto denies melena. Ruperto denies bright red blood per rectum. Ruperto denies hemorrhoids. Ruperto notes family history of colon issues. -Family history of colon cancer in father Ruperto denies heartburn. Ruperto denies dysphagia. Ruperto denies a history of ulcers/ peptic ulcer disease. Ruperto follows with [facility] for MVR and HTN. 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 Last OV 05/2024. Last pacer check:08/10/24. Last ECHO 05/2024 EF: 55%.He denies CP, SOB, dizziness, palpitations, syncope, edema, recent hospitalizations Other medical history is significant for hypothyroidism,osteoporos is and chronic constipation. Ruperto has undergone prior endoscopy. Last colonoscopy was 10/[address] Arteaga at [facility]. Sedation:Midazolam 4 mg IV, Fentanyl 50 micrograms IV Impression: - The examined portion of the ileum was normal. - One 5 mm polyp in the descending colon, removed with a cold biopsy forceps. Resected and retrieved. - One 7 mm polyp at the hepatic flexure, removed with a cold snare. Resected and retrieved. [facility]. - Melanosis in the colon. Biopsied. - The distal rectum and anal verge are normal onretroflexion view. CONVERTED FINAL DIAGNOSIS 1. Descending colon, polypectomy (A) - Tubular adenoma. - Melanosis coli. 2. Random colon, biopsies (B) - Colonic mucosa with melanosis coli. 3. Hepatic flexure, polypectomy (C) - Tubular adenoma. - Melanosis coli. DSA/rw 11/22/2020 CURRENT MEDICATIONS Current Outpatient Medications Medication Sig levothyroxine (SYNTHROID) 75 mcg tablet Take one pill daily for 7 days/week triamcinolone acetonide (KENALOG) 0.1 % cream Apply to affected area two times a day. aspirin, enteric coated (ASPIRIN, ENTERIC COATED) 325 mg EC tablet Take 1 tablet by mouth once daily. therapeutic multivitamin tablet Take 1 tablet by mouth daily with breakfast. peg 3350-Electrolytes (GOLYTELY) 236-22.74-6.74 -5.86 gram suspension Take 4,000 mL by mouth one time only for 1 dose. Refer to printed prep instructions from your provider. No current facility-administered medications for this visit. ALLERGIES: Alendronate and Fosamax [Alendronate Sodium] PAST MEDICAL HISTORY PAST MEDICAL HISTORY Diagnosis Date Diverticulosis of colon (without mention of hemorrhage) History of transfusion Mitral stenosis Osteoporosis Polio (HCC) Hx as a child. left arm weakness/atrophy. 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 AGE 4 Unspecified hypothyroidism PAST SURGICAL HISTORY PAST SURGICAL HISTORY Procedure Laterality Date COLONOSCOPY FLX DX W/COLLJ SPEC WHEN PFRMD 07/31/2001 Colonoscopy COLONOSCOPY FLX DX W/COLLJ SPEC WHEN PFRMD 12/28/2007 Colonoscopy COLONOSCOPY FLX DX W/COLLJ SPEC WHEN PFRMD 03/07/2014 Colonoscopy COLONOSCOPY FLX DX W/COLLJ SPEC WHEN PFRMD 03/10/2017 no repeat needed COLONOSCOPY FLX DX W/COLLJ SPEC WHEN PFRMD 11/21/2020 HEART SURGERY HX I/D PERIANAL ABSCESS, SUPERFICIAL 03/23/2012 Right anterior perianal abscess PAST SURGICAL HISTORY OF Hemorrhoidectomy PAST SURGICAL HISTORY OF right rotator cuff REPLACEMENT MITRAL VALVE W/CARDIOPULMONARY BYP 2013 Mitral valve replacement SURG TX ANAL FISTULA INTERSPHINCTERIC 04/09/2012 TONSILLECTOMY PRIMARY/SECONDARY Tonsillectomy FAMILY HISTORY FAMILY HISTORY Problem Relation Age of Onset Colon Cancer Father Osteoporosis Mother Ischemic Heart Disease Sister d. 65 during CABG. other (Mitral valve disease) Sister rheumatic fever Hx. SOCIAL HISTORY Social History Tobacco Use Smoking status: Never Smokeless tobacco: Never Vaping Use Vaping status: Never Used Substance Use Topics Alcohol use: No Drug use: No REVIEW OF SYMPTOMS: REVIEW OF SYSTEMS: General: The patient denies fatigue, denies weight loss, denies weight gain, denies feeling hot, and feelings of cold. Eyes: The patient denies glaucoma, denies eye injury/surgery, + glasses or contacts. Ear/Nose/Throat: The patient denies allergies, denies hayfever, denies ear infections, and denies bloody noses. Cardiovascular: The patient denies chest pain, + heart disease, denies high blood pressure, denies high cholesterol, and denies poor circulation. Respiratory: (more content not included)... Normal [facility] Pathology biopsy report Bunny (Tiss)on 11-01-2024 AP DISCLAIMER Normal [facility] Comment on above: Order Comment: Speci men Type: BLOOD SPECIMEN Ordering Facility: [facility] Address: [address] [place] [address] Result Comment: Georgia jensen Developed Test (LDT) Disclaimer: Performance characteristics of immunohistochemical, immunofluorescent, and chromogenic in-situ hybridization tests have been determined by the performing laboratory within [facility]'s [facility] Pathology and Laboratory Medicine Department ([facility], [facility], [facility], [facility], [facility], [facility], or [facility][1]) in a manner consistent with CLIA requirements. One or more of these tests may not have been cleared or approved by the FDA. [facility] is regulated under CLIA as qualified to perform high-complexity testing. These tests are used for clinical purposes. These should not be regarded as investigational or for research. Positive and negative controls stain appropriately. Performed By: #### 2 4323-8, 6-3 #### [facility] CLIA [id number] [address] [place] [address] [place] CASE REPORT Normal [facility] Comment on above: Order Comment: Speci men Type: BLOOD SPECIMEN Ordering Facility: [facility] Address: [address] [place] [address] Result Comment: Surg ica Pathology Report Case: [id number] Authorizing Provider: Fritz Pope MD Collected: 11/01/2024 10:38 AM Ordering Location: Ambulatory Surgery Received: 11/01/2024 12:04 PM Pathologist: Li Ledezma MD Specimens: A) - Colon, Transverse, Polyp B) - Colon, Sigmoid, Polyp Performed By: #### 2 4323-8, 3016-3 #### [facility] CLIA [id number] [address] [place] [address] [place] FINAL DIAGNOSIS Normal [facility] Comment on above: Order Comment: Speci men Type: BLOOD SPECIMEN Ordering Facility: [facility] Address: [address] [place] [address] Result Comment: A. C olon, transverse, polyp, polypectomy - Tubular adenoma B. Colon, sigmoid, polyp, polypectomy - Tubular adenoma at 1243 EDT Performed By: #### 2 4323-8, 3016-3 #### [facility] CLIA [id number] [address] [place] [address] [place] FINAL PERFORMING LAB Normal [facility] Comment on above: Order Comment: Speci men Type: BLOOD SPECIMEN Ordering Facility: [facility] Address: [address] [place] [address] Result Comment: Diag nostic interpretation performed at: [facility], [address] [place] [address] CLIA# [id number] Admissions Evaluator: Mikey Park MD Performed By: #### 2 4323-8, 6-3 #### [facility] CLIA [id number] [address] [place] [address] OF [facility] GROSS DESCRIPTION Normal [facility] Comment on above: Order Comment: Speci men Type: BLOOD SPECIMEN Ordering Facility: [facility] Address: [address] [place] [address] Result Comment: A. C olon, Transverse, Polyp Received in formalin are multiple pieces of red-brown, soft tissue aggregating to 2.0 x 0.5 x 0.2 cm. Totally submitted in two cassettes. B. Colon, Sigmoid, Polyp Received in formalin is one piece of kent, soft tissue measuring 0.5 x 0.3 x 0.2 cm. Totally submitted in one cassette. Gross examination performed at [facility], [address] [place] [address] November 01, 2024 6:19 PM Performed By: #### 2 4323-8, 3016-3 #### [facility] CLIA [id number] [address] [place] [address] [place] CNOVon 10-05-2024 CNOV Office Visit (GENSWS ) ----- YANIVRUPERTO ([id number]) 1935 M Date Time Provider Department 10/05/24 10:30 AM PENNIE RUELAS During your visit today, we recorded the following information about you: Pulse Respiration Blood pressure Weight 75/minute 16/minute 154/71 67.8 kg Pennie Ruelas APRN.CNP 10/05/2024 12:08 PM Signed HISTORY AND PHYSICAL Ruperto Castillo : 1935 REFERRING PHYSICIAN: Jesus Taylor [address] [facility] [address] CHIEF COMPLAINT: Patient presents with: Consult: Here for colonoscopy D/T previous polyps HPI: Ruperto is a 88 year old male referred for endoscopy. Ruperto notes due for screening colonoscopy- hx of polyps (2020). Ruperto denies abdominal pain. Ruperto denies diarrhea. Ruperto notes chronic constipation. -uses psyllium husk Ruperto denies a change in bowel habits. Ruperto denies melena. Ruperto denies bright red blood per rectum. Ruperto denies hemorrhoids. Ruperto notes family history of colon issues. -Family history of colon cancer in father Ruperto denies heartburn. Ruperto denies dysphagia. Ruperto denies a history of ulcers/ peptic ulcer disease. Ruperto follows with [facility] for MVR and HTN. 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 Last OV 05/2024. Last pacer check:08/10/24. Last ECHO 05/2024 EF: 55%.He denies CP, SOB, dizziness, palpitations, syncope, edema, recent hospitalizations Other medical history is significant for hypothyroidism,osteoporos is and chronic constipation. Ruperto has undergone prior endoscopy. Last colonoscopy was 10/[address] Arteaga at [facility]. Sedation:Midazolam 4 mg IV, Fentanyl 50 micrograms IV Impression: - The examined portion of the ileum was normal. - One 5 mm polyp in the descending colon, removed with a cold biopsy forceps. Resected and retrieved. - One 7 mm polyp at the hepatic flexure, removed with a cold snare. Resected and retrieved. Clip ([facility]) was placed. - Melanosis in the colon. Biopsied. - The distal rectum and anal verge are normal onretroflexion view. CONVERTED FINAL DIAGNOSIS 1. Descending colon, polypectomy (A) - Tubular adenoma. - Melanosis coli. 2. Random colon, biopsies (B) - Colonic mucosa with melanosis coli. 3. Hepatic flexure, polypectomy (C) - Tubular adenoma. - Melanosis coli. DSA/rw 11/22/2020 Current Outpatient Medications Medication Sig levothyroxine (SYNTHROID) 75 mcg tablet Take one pill daily for 7 days/week triamcinolone acetonide (KENALOG) 0.1 % cream Apply to affected area two times a day. aspirin, enteric coated (ASPIRIN, ENTERIC COATED) 325 mg EC tablet Take 1 tablet by mouth once daily. therapeutic multivitamin tablet Take 1 tablet by mouth daily with breakfast. peg 3350-Electrolytes (GOLYTELY) 236-22.74-6.74 -5.86 gram suspension Take 4,000 mL by mouth one time only for 1 dose. Refer to printed prep instructions from your provider. No current facility-administered medications for this visit. ALLERGIES: Alendronate and Fosamax [Alendronate Sodium] PAST MEDICAL HISTORY Diagnosis Date Diverticulosis of colon (without mention of hemorrhage) History of transfusion Mitral stenosis Osteoporosis Polio (HCC) Hx as a child. left arm weakness/atrophy. 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 AGE 4 Unspecified hypothyroidism PAST SURGICAL HISTORY Procedure Laterality Date COLONOSCOPY FLX DX W/COLLJ SPEC WHEN PFRMD 07/31/2001 Colonoscopy COLONOSCOPY FLX DX W/COLLJ SPEC WHEN PFRMD 12/28/2007 Colonoscopy COLONOSCOPY FLX DX W/COLLJ SPEC WHEN PFRMD 03/07/2014 Colonoscopy COLONOSCOPY FLX DX W/COLLJ SPEC WHEN PFRMD 03/10/2017 no repeat needed COLONOSCOPY FLX DX W/COLLJ SPEC WHEN PFRMD 11/21/2020 HEART SURGERY HX I/D PERIANAL ABSCESS, SUPERFICIAL 03/23/2012 Right anterior perianal abscess PAST SURGICAL HISTORY OF Hemorrhoidectomy PAST SURGICAL HISTORY OF right rotator cuff REPLACEMENT MITRAL VALVE W/CARDIOPULMONARY BYP 2013 Mitral valve replacement SURG TX ANAL FISTULA INTERSPHINCTERIC 04/09/2012 TONSILLECTOMY PRIMARY/SECONDARY Tonsillectomy FAMILY HISTORY Problem Relation Age of Onset Colon Cancer Father Osteoporosis Mother Ischemic Heart Disease Sister d. 65 during CABG. other (Mitral valve disease) Sister rheumatic fever Hx. Social History Tobacco Use Smoking status: Never Smokeless tobacco: Never Vaping Use Vaping status: Never Used Substance Use Topics Alcohol use: No Drug use: No REVIEW OF SYMPTOMS: REVIEW OF SYSTEMS: General: The patient denies fatigue, denies weight loss, denies weight gain, denies feeling hot, and feelings of cold. Eyes: The patient denies glaucoma, denies eye injury/surgery, + glasses or contacts. Ear/Nose/Throat: The patient denies allergies, denies hayfever, denies ear infections, and denies bloody (more content not included)... Normal [facility] CNOV Office Visit (FAMPWS ) ----- RUPERTO CASTILLO ([id number]) 1935 M Date Time Provider Department 10/05/24 9:00 AM [facility] your visit today, we recorded the following information about you: Pulse Respiration Blood pressure Weight 72/minute 18/minute 118/68 67 kg Jesus Taylor MD 10/05/2024 10:03 AM Signed Chief Complaint Patient presents with: F/U 6 Month HPI Ruperto Eboni Castillo is a 88 year old male who presents here today for 6 month follow up. Pt here today for his routine follow up. Continues to keep himself busy. Plans on keeping busy as long as he can. Has been trying to get some mowing done, but it's been wet. GI/Uro - Chronic issues with constipation, using OTC products to help with this. Denies any urinary issues. Reports nocturia, but denies this being issue. States this varies with how much water he drinks. Thyroid: Taking Synthroid 75 mcg daily. Feels stable on this dosage, unsure how to feel on medication. States a long time ago he quit taking it for a period of time, and felt no different. Denies any missed dosages. Follows with Cardio, [facility] (every 6 months) for MVR and HTN. Has pacemaker checked by [facility]. Overall reports feeling well at this time. Denies any chest pain, sob, or dizziness. Denies checking BP at home. Takes ASA 325 mg once daily. Osteoporosis: Taking Calcium and Vit D once a day. Has not tolerated Fosamax or Boniva, due to not being able to tolerate. Follows with [facility] for routine skin checks. Had spot removed on his upper back recently. - Depression/Screening negative. Declines Shingles vaccine today. Has a Trust. Past medical history, appointments, medications, allergies reviewed. Previous Medical History PAST MEDICAL HISTORY Diagnosis Date Diverticulosis of colon (without mention of hemorrhage) History of transfusion Mitral stenosis Osteoporosis Polio Hx as a child. left arm weakness/atrophy. 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 AGE 4 Unspecified hypothyroidism Previous Surgical History PAST SURGICAL HISTORY Procedure Laterality Date COLONOSCOPY FLX DX W/COLLJ SPEC WHEN PFRMD 07/31/2001 Colonoscopy COLONOSCOPY FLX DX W/COLLJ SPEC WHEN PFRMD 12/28/2007 Colonoscopy COLONOSCOPY FLX DX W/COLLJ SPEC WHEN PFRMD 03/07/2014 Colonoscopy COLONOSCOPY FLX DX W/COLLJ SPEC WHEN PFRMD 03/10/2017 no repeat needed COLONOSCOPY FLX DX W/COLLJ SPEC WHEN PFRMD 11/21/2020 HEART SURGERY HX I/D PERIANAL ABSCESS, SUPERFICIAL 03/23/2012 Right anterior perianal abscess PAST SURGICAL HISTORY OF Hemorrhoidectomy PAST SURGICAL HISTORY OF right rotator cuff REPLACEMENT MITRAL VALVE W/CARDIOPULMONARY BYP 2013 Mitral valve replacement SURG TX ANAL FISTULA INTERSPHINCTERIC 04/09/2012 TONSILLECTOMY PRIMARY/SECONDARY Tonsillectomy Family History FAMILY HISTORY Problem Relation Age of Onset Colon Cancer Father Osteoporosis Mother Ischemic Heart Disease Sister d. 65 during CABG. other (Mitral valve disease) Sister rheumatic fever Hx. Patient Allergies ALLERGIES Allergen Reactions Alendronate Unknown Fosamax [Alendronat* Intolerance musculoskeletal pain Current Medications Current Outpatient Medications on File Prior to Visit Medication Sig levothyroxine (SYNTHROID) 75 mcg tablet Take one pill daily for 7 days/week triamcinolone acetonide (KENALOG) 0.1 % cream Apply to affected area two times a day. aspirin, enteric coated (ASPIRIN, ENTERIC COATED) 325 mg EC tablet Take 1 tablet by mouth once daily. therapeutic multivitamin tablet Take 1 tablet by mouth daily with breakfast. No current facility-administered medications on file prior to visit. Social History Social History Tobacco Use Smoking status: Never Smokeless tobacco: Never Vaping Use Vaping status: Never Used Substance Use Topics Alcohol use: No Drug use: No EXAM: BP 118/68 (BP Site: Right Arm, BP Position: Sitting, BP Cuff Size: Regular Adult) Pulse 72 Resp 18 Wt 67 kg (147 lb 11.3 oz) BMI 23.84 kg/m? General Appearance: Well appearing, alert, in no acute distress, well-hydrated, well nourished.. Neck: Supple, no adenopathy; thyroid symmetric, normal size, no bruits. Lungs: Lungs clear to auscultation. No wheezing, rhonchi, rales.. Heart: RRR without murmur, gallop, or rubs. No ectopy. Extremities: Denies any lower leg edema. Health Maintenance List Shingrix Vaccine(2 of 3) due on 10/14/2014 Advance Directive Discussion due on 05/26/2024 Depression Screening due on 10/02/2024 Anxiety Screening due on 10/02/2024 RSV Vaccine(1 - 1-dose 75+ series) due on 04/06/2025 Covid-19 Vaccine( season) due on 04/06/2025 DTaP,Tdap,Td Vaccine(8 - Td or Tdap) due on 05/02/2025 Diabetes Screening due on 10/02/2027 Influenza Vaccine (more content not included)... Normal [facility] metabolic 2000 panelon 10-01-2024 Albumin [Mass/Vol] 3.9 g/dL Normal 3.9-4.9 [facility] Comment on above: Order Comment: Speci men Type: BLOOD SPECIMEN Ordering Facility: [facility] Address: [address] [id number] Performed By: #### 2 4323-8, 3016-3 #### [facility] CLIA [id number] [address] [place] [address] [place] ALP [Catalytic activity/Vol] 64 U/L Normal 38-113 [facility] Comment on above: Order Comment: Speci men Type: BLOOD SPECIMEN Ordering Facility: [facility] Address: [address] [place] [address] Performed By: #### 2 4323-8, 3015-3 #### [facility] CLIA [id number] [address] [place] [address] [place] ALT [Catalytic activity/Vol] 21 U/L Normal 10-54 [facility] Comment on above: Order Comment: Speci men Type: BLOOD SPECIMEN Ordering Facility: [facility] Address: [address] [place] [address] Result Comment: Resu lts may be falsely increased due to interference from hemolysis. Suggest reorder as clinically indicated. Performed By: #### 2 4323-8, 6-3 #### [facility] CLIA [id number] [address] [place] [address] [place] Anion gap [Moles/Vol] 10 mmol/L Normal 8-15 [facility] Comment on above: Order Comment: Speci men Type: BLOOD SPECIMEN Ordering Facility: [facility] Address: [address] [place], [place] [id number] Performed By: #### 2 4323-8, 3016-3 #### [facility] CLIA [id number] [address] [id number] [place] AST [Catalytic activity/Vol] 40 U/L Normal 14-40 [facility] Comment on above: Order Comment: Speci men Type: BLOOD SPECIMEN Ordering Facility: [facility] Address: [address] [place] [address] Result Comment: Resu lts may be falsely increased due to interference from hemolysis. Suggest reorder as clinically indicated. Performed By: #### 2 4323-8, 6-3 #### [facility] CLIA [id number] [address] [place] [address] [place] Bilirubin [Mass/Vol] 0.3 mg/dL Normal 0.2-1.3 [facility] Comment on above: Order Comment: Speci men Type: BLOOD SPECIMEN Ordering Facility: [facility] Address: [address] [place] [address] Performed By: #### 2 4323-8, 3015-3 #### [facility] CLIA [id number] [address] [place] [address] [place] Calcium [Mass/Vol] 8.9 mg/dL Normal 8.5-10.2 [facility] Comment on above: Order Comment: Speci men Type: BLOOD SPECIMEN Ordering Facility: [facility] Address: [address] [place] [address] Performed By: #### 2 4323-8, 3015-3 #### [facility] CLIA [id number] [address] [place] [address] [place] Chloride [Moles/Vol] 105 mmol/L Normal 98-107 [facility] Comment on above: Order Comment: Speci men Type: BLOOD SPECIMEN Ordering Facility: [facility] Address: [address] [place], [place] [address] Performed By: #### 2 4323-8, 6-3 #### [facility] CLIA [id number] [address] [place] [address] [place] CO2 [Moles/Vol] 24 mmol/L Normal 22-30 [facility] Comment on above: Order Comment: Speci men Type: BLOOD SPECIMEN Ordering Facility: [facility] Address: [address] [place] [address] Performed By: #### 2 4323-8, 3016-3 #### [facility] CLIA [id number] [address] [place] [address] [place] Creatinine [Mass/Vol] 1.06 mg/dL Normal 0.73-1.22 [facility] Comment on above: Order Comment: Speci men Type: BLOOD SPECIMEN Ordering Facility: [facility] Address: [address] [place] [address] Performed By: #### 2 4323-8, 6-3 #### [facility] CLIA [id number] [address] [place] [address] [place] Creatinine and Glomerular filtration rate.predicted panel (S/P/Bld) 68 mL/min/1.73m??? Normal >=60 [facility] Comment on above: Order Comment: Speci men Type: BLOOD SPECIMEN Ordering Facility: [facility] Address: [address] [place] [address] Result Comment: Linda mated Glomerular Filtration Rate (eGFR) is calculated using the 2020 CKD-EPI creatinine equation. This equation utilizes serum creatinine, sex, and age as parameters. The creatinine assay has traceable calibration to isotope dilution-mass spectrometry. Refer to KDIGO guidelines for clinical interpretation. In patients with unstable renal function, e.g. those with acute kidney injury, the eGFR may not accurately reflect actual GFR. Performed By: #### 2 4323-8, 3015-3 #### [facility] CLIA [id number] [address] [place] [address] [place] Glucose [Mass/Vol] 81 mg/dL Normal 74-99 [facility] Comment on above: Order Comment: Speci men Type: BLOOD SPECIMEN Ordering Facility: [facility] Address: [address] [place] [address] Result Comment: The [place] Diabetes [employer] (ADA) provides guidance for cutoff values for fasting glucose and random glucose. The ADA defines fasting as no caloric intake for at least 8 hours. Fasting plasma glucose results between 100 to 125 mg/dL indicate increased risk for diabetes (prediabetes). Fasting plasma glucose results greater than or equal to 126 mg/dL meet the criteria for diagnosis of diabetes. In the absence of unequivocal hyperglycemia, results should be confirmed by repeat testing. In a patient with classic symptoms of hyperglycemia or hyperglycemic crisis, random plasma glucose results greater than or equal to 200 mg/dL meet the criteria for diagnosis of diabetes. Reference: Standards of Medical Care in Diabetes 2016, [place] [employer]. Diabetes Care. 2016.39(Suppl 1). Performed By: #### 2 4323-8, 3015-3 #### [facility] CLIA [id number] [address] [place] [address] [place] Potassium [Moles/Vol] 4.5 mmol/L Normal 3.7-5.1 [facility] Comment on above: Order Comment: Speci men Type: BLOOD SPECIMEN Ordering Facility: [facility] Address: [address] [place] [address] Performed By: #### 2 4323-8, 3 #### [facility] CLIA [id number] [address] [place] [address] [place] Protein [Mass/Vol] 7.0 g/dL Normal 6.3-8.0 [facility] Comment on above: Order Comment: Speci men Type: BLOOD SPECIMEN Ordering Facility: [facility] Address: [address] [place] [address] Performed By: #### 2 4323-8, 3 #### [facility] CLIA [id number] [address] [id number] [place] Sodium [Moles/Vol] 139 mmol/L Normal 136-144 [facility] Comment on above: Order Comment: Speci men Type: BLOOD SPECIMEN Ordering Facility: [facility] Address: [address] [place] [address] Performed By: #### 2 4323-8, 3015-3 #### [facility] CLIA [id number] [address] [place] [address] [place] Urea nitrogen [Mass/Vol] 26 mg/dL High 9-24 [facility] Comment on above: Order Comment: Speci men Type: BLOOD SPECIMEN Ordering Facility: [facility] Address: [address] [place] [address] Performed By: #### 2 4323-8, 3016-3 #### [facility] CLIA [id number] [address] [place] [address] [place] TSH SerPl-aCncon 10-01-2024 TSH Qn 0.619 m[IU]/L Normal 0.270-4.200 [facility] Comment on above: Order Comment: Specscott lombardo Type: BLOOD SPECIMEN Ordering Facility: [facility] Address: [address] [place] [address] Performed By: #### 2 4323-8, 3016-3 #### [facility] CLIA [id number] [address] [place] [address] [place] CNPNon 08-30-2024 CNPN Telephone ([facility]) ----- RUPERTO CASTILLO ([id number]) 1935 M Date Time Provider Department 08/30/24 CODIE MANN [facility] During your visit today, we recorded the following information about you: Jagruti Tidwell, ANGE 08/30/2024 11:42 AM Signed Chitra with [employer] Referrals calls to request a retro referral to dermatology because payment has been denied for visit as patient didn't have a referral sent to dermatology prior to visit on August 03, 2024. Patient has a referral from 07/08/2024 for dermatology prior to actual OV. Faxed to [phone] per request. Provider Line [phone] for additional questions. Nothing further needed at this time. Notified office. Closing TE. Jagruti Tidwell RN Allergies As of Date: 08/30/2024 Noted Allergy Reaction ALENDRONATE 08/30/2013 16 - Unknown FOSAMAX (ALENDRONATE SODIUM) 07/10/2006 5 - Intolerance Comments: musculoskeletal pain Date Reviewed: 07/21/2024 Reviewed by: Sue Daniels MA - Fully Assessed Reason for Visit: Consult [502] Prescriptions as of 08/30/2024 - levothyroxine (SYNTHROID) 75 mcg tablet Take one pill daily for 7 days/week - triamcinolone acetonide (KENALOG) 0.1 % cream Apply to affected area two times a day. - aspirin, enteric coated (ASPIRIN, ENTERIC COATED) 325 mg EC tablet Take 1 tablet by mouth once daily. - therapeutic multivitamin tablet Take 1 tablet by mouth daily with breakfast. Meds Comments as of 04/13/2020: Uses Mineral Oil prn for constipation. 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.3] 03/11/2005 07/28/2008 Cervicalgia [M54.2] 09/30/2005 06/06/2010 FAMILY HX GI MALIGNANCY [Z80.0] 02/17/2006 Sprain and strain of unspecified site of should*02/17/2006 06/06/2010 Personal history of poliomyelitis [Z86.12] 07/28/2008 Acquired hypothyroidism [E03.9] 04/27/2009 Drug-Induced Osteoporosis [M81.8, T50.905A] 10/26/2009 Cerdthp-iu-nft [K60.30] 03/23/2012 Perianal abscess [K61.0] 03/23/2012 08/27/2017 Skin cancer [C44.90] 06/14/2013 08/27/2017 Rheumatic heart disease [I09.9] 10/19/2013 Mitral stenosis with insufficiency [I05.2] 10/19/2013 Preop testing [Z01.818] 10/19/2013 10/23/2013 Mechanically assisted ventilation [Z99.11] 10/20/2013 10/21/2013 Intravascular volume depletion [E86.1] 10/20/2013 10/23/2013 Acute postoperative pain [G89.18] 10/20/2013 08/27/2017 Hypotension [I95.9] 10/21/2013 10/25/2013 PFO (patent foramen ovale) [Q21.12] 10/21/2013 Hypoalbuminemia [E88.09] 10/21/2013 10/25/2013 Nutrition disorder [E63.9] 10/21/2013 Atelectasis [J98.11] 10/22/2013 08/27/2017 A-fib (HCC) [I48.91] 10/23/2013 08/12/2016 SUMMARY [V999.95] 10/23/2013 History of mitral valve replacement with biopro*11/02/2013 History of colonic polyps [Z86.0100] 02/11/2017 Chronic constipation [K59.09] 09/28/2021 Pulmonary hypertension (HCC) [I27.20] 10/03/2022 Acute heart failure with preserved ejection fra*01/08/2024 Congestive heart failure (HCC) [I50.9] 01/03/2024 Acute on chronic respiratory failure (HCC) [J96*01/08/2024 01/30/2024 Pleural effusion [J90] 01/08/2024 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] 08/30/2013 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] 01/08/2024 Paroxysmal atrial fibrillation (HCC) [I48.0] 10/26/2013 01/30/2024 Mitral valve stenosis, rheumatic [I05.0] 01/12/2024 Prosthetic mitral valve failure requiring repla*01/13/2024 Severe protein-calorie malnutrition (HCC) [E43] 01/19/2024 01/30/2024 Prosthetic valve dysfunction [T82.09XA] 01/20/2024 Essential hypertension [I10] 02/24/2024 Mixed hyperlipidemia [E78.2] 02/24/2024 S/P transcatheter mitral valve replacement (TMV*02/24/2024 Pacemaker [Z95.0] 02/24/2024 Complete heart block (HCC) [I44.2] 02/24/2024 Encounter Status:Closed by JAGRUTI TIDWELL on 08/30/24 Normal [facility] CNOVon 07-21-2024 CNOV Office Visit ([facility] ) ----- RUPERTO CASTILLO ([id number]) 1935 M Date Time Provider Department 07/21/24 8:45 AM WINIFRED VALLEJO [facility] During your visit today, we recorded the following information about you: Pulse Blood pressure Weight Height 84/minute 112/62 64.9 kg 1.676 m Winifred Vallejo MD 07/21/2024 10:31 AM Signed [facility] Department of Cardiovascular Medicine SECTION OF CLINICAL CARDIOLOGY OUTPATIENT VISIT DATE July 21, 2024 OUTPATIENT VISIT TYPE ESTABLISHED PRIMARY CARE PHYSICIAN: Jesus Taylor [address] [place] [address] REFERRING PHYSICIAN: Lalita Perkins [address] [facility] [address] CHIEF COMPLAINT: Routine follow-up HISTORY OF PRESENT ILLNESS: Mr. Castillo is a 88 year old male who presents today for a cardiovascular medicine follow-up visit. Patient had undergone a [id number] transcatheter mitral valve replacement (Luisa TMVR) with a 29 mm Deric 3 Ultra valve, which was post-dilated with a 28 mm True balloon, and alcohol ablation of the S2 branch. Post-ablation, the left ventricular outflow tract gradient was reduced by approximately 5 mmHg. Post procedure he suffered from complete heart block and underwent permanent pacemaker implantation. Since his discharge the patient has had no symptoms of shortness of breath, he remains extremely active. He is on a full dose aspirin and on no diuretics. He is followed up locally. He had undergone an echo earlier in May 2024 with no evidence of valvular dysfunction. He denies chest pain, shortness of breath, orthopnea, cough, edema, palpitations, PND, lightheadedness or syncope. PAST CARDIAC HISTORY: PAST MEDICAL HISTORY Diagnosis Date Diverticulosis of colon (without mention of hemorrhage) History of transfusion Mitral stenosis Osteoporosis Polio Hx as a child. left arm weakness/atrophy. 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 AGE 4 Unspecified hypothyroidism PAST SURGICAL HISTORY Procedure Laterality Date COLONOSCOPY FLX DX W/COLLJ SPEC WHEN PFRMD 07/31/2001 Colonoscopy COLONOSCOPY FLX DX W/COLLJ SPEC WHEN PFRMD 12/28/2007 Colonoscopy COLONOSCOPY FLX DX W/COLLJ SPEC WHEN PFRMD 03/07/2014 Colonoscopy COLONOSCOPY FLX DX W/COLLJ SPEC WHEN PFRMD 03/10/2017 no repeat needed COLONOSCOPY FLX DX W/COLLJ SPEC WHEN PFRMD 11/21/2020 HEART SURGERY HX I/D PERIANAL ABSCESS, SUPERFICIAL 03/23/2012 Right anterior perianal abscess PAST SURGICAL HISTORY OF Hemorrhoidectomy PAST SURGICAL HISTORY OF right rotator cuff REPLACEMENT MITRAL VALVE W/CARDIOPULMONARY BYP 2013 Mitral valve replacement SURG TX ANAL FISTULA INTERSPHINCTERIC 04/09/2012 TONSILLECTOMY PRIMARY/SECONDARY Tonsillectomy SOCIAL HISTORY Social History Tobacco Use Smoking status: Never Smokeless tobacco: Never Vaping Use Vaping status: Never Used Substance Use Topics Alcohol use: No Drug use: No FAMILY HISTORY Problem Relation Age of Onset Colon Cancer Father Osteoporosis Mother Ischemic Heart Disease Sister d. 65 during CABG. other (Mitral valve disease) Sister rheumatic fever Hx. Patient-Entered Questionnaire Scores Sleep Duration Level: N/A ALLERGIES: ALLERGIES Allergen Reactions Alendronate Unknown Fosamax [Alendronat* Intolerance musculoskeletal pain MEDICATIONS: triamcinolone acetonide (KENALOG) 0.1 % cream Apply to affected area two times a day. aspirin, enteric coated (ASPIRIN, ENTERIC COATED) 325 mg EC tablet Take 1 tablet by mouth once daily. levothyroxine (SYNTHROID) 75 mcg tablet Take one pill daily for 7 days/week therapeutic multivitamin tablet Take 1 tablet by mouth daily with breakfast. REVIEW OF SYSTEMS: PHYSICAL EXAMINATION: BP 112/62 (BP Site: Left Arm, BP Position: Sitting, BP Cuff Size: Large Adult) Pulse 84 Ht 167.6 cm (5' 6) Wt 64.9 kg (143 lb) SpO2 98% BMI 23.08 kg/m? General: Well appearing, in no acute distress. Skin: No clubbing, no cyanosis. Eyes: Extra ocular movements intact Oropharynx: Teeth in good repair. Neck: No jugular venous distention, no carotid bruits, carotids have a normal upstroke, no palpable thyromegaly. Lungs: Clear to auscultation bilaterally, no wheezing or rhonchi. Heart: Regular rhythm, PMI not displaced, S1, S2 normal, no S3, no S4, no heaves, no rub and no murmur. Abdomen: Soft, nontender, bowel sounds normal, no palpable organomegaly, no bruits. Extremities: No peripheral edema . Grade 2/4 distal pulses bilaterally. Neuro: Oriented to person, place and time, alert, cooperative, gait coordinated. CARDIOVASCULAR MEDICINE TESTING: Last ECHO Result Conclusion ECHO Collected: 01/21/2024 10:51 AM (Final result) Impression: CONCLUSIONS: - Technically diffic (more content not included)... Normal [facility] ECG COMPLETEon 07-21-2024 ECG COMPLETE Ventricular Rate : 8 4 BPM Atrial Rate : 84 BPM P-R Interval : 214 ms QRS Duration : 106 ms Q-T Interval : 390 ms QTC Calculation(Bazett) : 460 ms Calculated P [place] : 17 degrees Calculated R [place] : 87 degrees Calculated T [place] : 13 degrees ATRIAL-SENSED VENTRICULAR-PACED RHYTHM WITH PROLONGED AV CONDUCTION WITH OCCASIONAL PREMATURE VENTRICULAR COMPLEXES ABNORMAL ECG Confirmed by EREN SONI MD ([id number]) on 08/03/2024 8:46:44 PM NAME : RUPERTO CASTILLO PID : [id number] : 1935 Gender : Male Race : ORD : [id number] Procedure Date : Jul 21 2024 08:47:22 Edit Date : Aug 03 2024 20:46:47 Diagnosis: ATRIAL-SENSED VENTRICULAR-PACED RHYTHM WITH PROLONGED AV CONDUCTION WITH OCCASIONAL PREMATURE VENTRICULAR COMPLEXES ABNORMAL ECG Confirmed by EREN SONI MD ([id number]) on 08/03/2024 8:46:44 PM Test Reason : Location : 314 : J14 Overread By : EREN SONI MD Edited By : EREN SONI MD Referred By : LALITA PERKINS Acquired by : KRISTEN CARTER Normal [facility] CNOVon 07-08-2024 CNOV Office Visit (FAMPWS ) ----- RUPERTO CASTILLO ([id number]) 1935 M Date Time Provider Department 07/08/24 9:40 AM CODIE MANN During your visit today, we recorded the following information about you: Pulse Respiration Blood pressure Weight 74/minute 16/minute 110/60 66.8 kg Codie Mann, ARON.[employer] 07/08/2024 1:15 PM Signed This is a 88 year old male who presents today with: Patient presents with: Acute Visit: Itching all over body HISTORY OF PRESENT ILLNESS: Ruperto Castillo is a 88 year old male. Patient presents with: Acute Visit: Itching all over body Here in the office for allover body itching. Saw PCP on 06/18/2024 and was diagnosed with cellulitis on his right leg, treated with doxycycline and prednisone 12 days. Medication was helpful for itching but never improved the actual lesions. Lesions will seep, clear discharge. This has been on going for years but worse recently. Using Tide laundry, using bar soap from [employer], applies lotion from [employer] as well. No fever or chills. PAST MEDICAL HISTORY: PAST MEDICAL HISTORY Diagnosis Date Diverticulosis of colon (without mention of hemorrhage) History of transfusion Mitral stenosis Osteoporosis Polio Hx as a child. left arm weakness/atrophy. 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 AGE 4 Unspecified hypothyroidism PAST SURGICAL HISTORY Procedure Laterality Date COLONOSCOPY FLX DX W/COLLJ SPEC WHEN PFRMD 07/31/2001 Colonoscopy COLONOSCOPY FLX DX W/COLLJ SPEC WHEN PFRMD 12/28/2007 Colonoscopy COLONOSCOPY FLX DX W/COLLJ SPEC WHEN PFRMD 03/07/2014 Colonoscopy COLONOSCOPY FLX DX W/COLLJ SPEC WHEN PFRMD 03/10/2017 no repeat needed COLONOSCOPY FLX DX W/COLLJ SPEC WHEN PFRMD 11/21/2020 HEART SURGERY HX I/D PERIANAL ABSCESS, SUPERFICIAL 03/23/2012 Right anterior perianal abscess PAST SURGICAL HISTORY OF Hemorrhoidectomy PAST SURGICAL HISTORY OF right rotator cuff REPLACEMENT MITRAL VALVE W/CARDIOPULMONARY BYP 2013 Mitral valve replacement SURG TX ANAL FISTULA INTERSPHINCTERIC 04/09/2012 TONSILLECTOMY PRIMARY/SECONDARY Tonsillectomy ALLERGIES Alendronate and Fosamax [Alendronate Sodium] MEDICATIONS Current Outpatient Medications Medication Sig aspirin, enteric coated (ASPIRIN, ENTERIC COATED) 325 mg EC tablet Take 1 tablet by mouth once daily. levothyroxine (SYNTHROID) 75 mcg tablet Take one pill daily for 7 days/week therapeutic multivitamin tablet Take 1 tablet by mouth daily with breakfast. No current facility-administered medications for this visit. FAMILY HISTORY Problem Relation Age of Onset Colon Cancer Father Osteoporosis Mother Ischemic Heart Disease Sister d. 65 during CABG. other (Mitral valve disease) Sister rheumatic fever Hx. Social History Tobacco Use Smoking status: Never Smokeless tobacco: Never Vaping Use Vaping status: Never Used Substance Use Topics Alcohol use: No Drug use: No REVIEW OF SYSTEMS GENERAL: No weight loss, malaise or fevers/chills HEENT: Negative for frequent or significant headaches, No changes in hearing or vision. NECK: Negative for lumps, goiter, pain and significant neck swelling RESPIRATORY: Negative for cough, hemoptysis, wheezing, dyspnea or shortness of breath CARDIOVASCULAR: Negative for chest pain, leg swelling, orthopnea, or palpitations GI: No nausea, vomiting, or diarrhea/constipation. No hematochezia/melena. No heartburn or reflux symptoms. : No history of dysuria, frequency or incontinence MUSCULOSKELETAL: Negative for joint pain or swelling. SKIN: + Skin lesions/itching ENDOCRINE: Negative for cold or heat intolerance, polyuria, polydipsia and goiter NEURO: No history of headaches, syncope, paralysis, seizures or tremors MOOD: Negative for depression, anxiety, or suicidal ideation. EXAM: BP 110/60 Pulse 74 Resp 16 Wt 66.8 kg (147 lb 4.3 oz) SpO2 98% BMI 23.77 kg/m? PHYSICAL EXAM: General Appearance: Well appearing, alert, in no acute distress, well-hydrated, well nourished. Skin: Follicular, crusty skin lesions noted over whole body, mild erythema. Healing skin lesion noted on to right lower leg, mild increased erythema and warmth to touch. No open sores. Head: Normocephalic, no masses, lesions, tenderness or abnormalities. Eyes: Anicteric sclera. Extraocular movements are intact. Extremities: No deformities, edema, skin discoloration, clubbing or cyanosis. Good capillary refill. Peripheral Pulses: Normal, Capillary refill <2secs, strong peripheral pulses, Pulses palpable. Neurologic: Gait normal. Sensation grossly intact. ASSESSMENT/PLAN: 1. Contact dermatitis, unspecified contact dermatitis type, unspecified trigger - ICD9: 692.9, ICD10: L25.9 (primary diagnosis) - Topical steriod tx with Rx for steriod cream/oin (more content not included)... Normal [facility] CNOVon 06-18-2024 CNOV Office Visit (FAMPWS ) ----- RUPERTO CASTILLO ([id number]) 1935 M Date Time Provider Department 06/18/24 8:40 AM [facility] your visit today, we recorded the following information about you: Pulse Respiration Blood pressure Weight 74/minute 16/minute 126/60 66.8 kg Jesus Taylor MD 06/18/2024 8:54 AM Signed Chief Complaint Skin issues HPI Ruperto Castillo is a 88 year old male who presents here today for sore on leg. Pt c/o rash area on the right leg that gets scabbed up and then oozes. Has some spots else where on the body as well but the one on the leg is worse. He gets these in the winter, uses moisturizing lotion. The are on his righ leg has been oozing the last few days. CV: doing well, pacemaker functioning, follows with Cardiology. Past medical history, appointments, medications, allergies reviewed. Previous Medical History PAST MEDICAL HISTORY Diagnosis Date Diverticulosis of colon (without mention of hemorrhage) History of transfusion Mitral stenosis Osteoporosis Polio Hx as a child. left arm weakness/atrophy. 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 AGE 4 Unspecified hypothyroidism Previous Surgical History PAST SURGICAL HISTORY Procedure Laterality Date COLONOSCOPY FLX DX W/COLLJ SPEC WHEN PFRMD 07/31/2001 Colonoscopy COLONOSCOPY FLX DX W/COLLJ SPEC WHEN PFRMD 12/28/2007 Colonoscopy COLONOSCOPY FLX DX W/COLLJ SPEC WHEN PFRMD 03/07/2014 Colonoscopy COLONOSCOPY FLX DX W/COLLJ SPEC WHEN PFRMD 03/10/2017 no repeat needed COLONOSCOPY FLX DX W/COLLJ SPEC WHEN PFRMD 11/21/2020 HEART SURGERY HX I/D PERIANAL ABSCESS, SUPERFICIAL 03/23/2012 Right anterior perianal abscess PAST SURGICAL HISTORY OF Hemorrhoidectomy PAST SURGICAL HISTORY OF right rotator cuff REPLACEMENT MITRAL VALVE W/CARDIOPULMONARY BYP 2013 Mitral valve replacement SURG TX ANAL FISTULA INTERSPHINCTERIC 04/09/2012 TONSILLECTOMY PRIMARY/SECONDARY Tonsillectomy Family History FAMILY HISTORY Problem Relation Age of Onset Colon Cancer Father Osteoporosis Mother Ischemic Heart Disease Sister d. 65 during CABG. other (Mitral valve disease) Sister rheumatic fever Hx. Patient Allergies ALLERGIES Allergen Reactions Alendronate Unknown Fosamax [Alendronat* Intolerance musculoskeletal pain Current Medications Current Outpatient Medications on File Prior to Visit Medication Sig aspirin, enteric coated (ASPIRIN, ENTERIC COATED) 325 mg EC tablet Take 1 tablet by mouth once daily. levothyroxine (SYNTHROID) 75 mcg tablet Take one pill daily for 7 days/week therapeutic multivitamin tablet Take 1 tablet by mouth daily with breakfast. No current facility-administered medications on file prior to visit. Social History Social History Tobacco Use Smoking status: Never Smokeless tobacco: Never Vaping Use Vaping status: Never Used Substance Use Topics Alcohol use: No Drug use: No EXAM: There were no vitals taken for this visit. General Appearance: Well appearing, alert, in no acute distress, well-hydrated, well nourished.. Skin: right lateral lower leg with 6x6 cm are of inflammation, erythema, oozing. Inflammatory area on right upper arm, abd, upper chest. Lungs: Lungs clear to auscultation. No wheezing, rhonchi, rales.. Heart: RRR without murmur, gallop, or rubs. No ectopy. Health Maintenance List Shingrix Vaccine(2 of 3) due on 10/14/2014 Advance Directive Discussion due on 05/26/2024 RSV Vaccine(1 - 1-dose 75+ series) due on 04/06/2025 Covid-19 Vaccine(1 - 2024-25 season) due on 04/06/2025 Depression Screening due on 10/02/2024 Anxiety Screening due on 10/02/2024 DTaP,Tdap,Td Vaccine(8 - Td or Tdap) due on 05/02/2025 Diabetes Screening due on 04/02/2027 Influenza Vaccine Completed Pneumococcal Vaccine: 50+ Completed Data reviewed none ASSESSMENT/PLAN: 1. Cellulitis of skin - ICD9: 682.9, ICD10: L03.90 (primary diagnosis) - with underlying eczema/inflammation - Begin treatment with doxycycline and prednisone for inflammation - DOXYCYCLINE HYCLATE 100 MG CAPSULE - PREDNISONE 10 MG TABLET 2. Hypertensive heart disease with heart failure (HCC) - ICD9: 402.91, 428.9, ICD10: I11.0 - Controlled - Continue current medications - Recommend home blood pressure monitoring, to bring results to next visit - Encouraged sodium restriction, DASH or Mediterranean diet - Recommend regular aerobic exercise 3. Complete heart block (HCC) - ICD9: 426.0, ICD10: I44.2 Pacemaker Follow with Cardiology Follow up prn Medical Decision Making: Problems: Low: Acute, uncomplicated illness or injury Risk: Moderate: Drug management Medical Decision Making Level: 3 - Low Jesus Taylor MD Allergies As of Date: 06/18/2024 Noted Allergy Reaction ALENDRONATE 08/30/2013 16 - Unknown (more content not included)... Normal [facility] 12 Lead EKG performed by [facility] on 06-08-2024 12 Lead EKG performed by [address] [address] 12 Lead EKG performed by [facility] 06/08/24 1536 MR#: [id number] Acct: [id number] Name: RUPERTO CASTILLO Rep #: [id number] : 1935 88 From: Eren Winslow MD Attending Dr: Dr. Eren Winslow MD Status: BHAKTA Ordering Dr: Eren Winslow MD Date: 06/08/24 Location: [facility] Sex: M C Admitted: [facility]/12 Lead EKG performed by [facility] ECG Report Interpretation -Normal sinus rhythm, rate 80 Electronic Ventricular Pacer Tracking Atrial RateABNORMALElectronicvimal y signed on 06/08/2024 at 08:[address] Eren Winslow [place] [employer] Version 8610 06/08/24 0900 Date Eren Winslow MD CC: Dr. Jesus Taylor MD Date Dictated: 06/08/24 153 Date Transcribed: 06/08/241535 Relay Dispatcher: Signed Normal [facility] Cardiology Visit Reporton Cardiology Visit Report [facility] [address] [place] [address] OFFICE VISIT Date of Service: 06/08/24 MR#: [id number] Acct: [id number] Name: RUPERTO CASTILLO Rep #: [id number] : 1935 Provider: Dr. Eren severino MD Age/Sex: 88/M Location: [facility] Status: Signed HPI HPI History of Present Illness Details: Patient is an 88-year-old white male that comes in today for monitoring of his cardiovascular status. 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 Aldana at the [facility]. The patient had a thoracentesis done when he was hospitalized there and after the septal ablation developed complete heart block. A DDD pacemaker was placed and is now monitored through the [facility] device clinic. Patient's last device check May 11, 2024 showed RA pacing of 5.7% and RV pacing of 94.5%. There was less than 0.1% atrial arrhythmia burden this was consistent with atrial flutter on the review of the EGM's. There were no high ventricular rate episodes detected. The patient's last echocardiogram January 21, 2024 right after his valve and valve implant showed a #29 DERIC 3 valve with trace mitral valve regurgitation the peak gradient was 14 the mean gradient was 5. The patient's heart rate was 70 at the time. Left-ventricular outflow tract gradient peak was 44 mean of 30 The patient currently is denying any symptoms. He is aerobically active he goes up and down the stairs without restrictions he actually ran skid-steer yesterday moving snow and actually shoveled about 10 feet worth of a sidewalk without any symptoms. The patient was cautioned about shoveling snow. The patient continues to practice SBE prophylaxis. Intake Vital Signs 02/20/24 09:54 06/08/24 08:14 Height 5 ft 7 in 5 ft 7 in Weight: 145 lb BMI 22.7 BP 116/70 Blood Pressure Location Rt brachial Position Sitting Respiration 18 Pulse 75 Pulse Source Monitor Pulse Oximetry (%) 98 Oxygen Delivery Method room air Intake Visit Reasons: 3 M FU Voice Writing Reporter Required: No Accompanied by: Self Is patient in pain?: No Allergies alendronate sodium (From Fosamax) Allergy (Verified 06/08/24 08:15) Unknown Medications ???Medication ???Instructions ???Recorded ???Confirmed ???Type levothyroxine 75 mcg tablet 75 mcg PO DAILY thyroid 08/27/13 06/08/24 History aspirin 325 mg tablet 325 mg PO DAILY antiplatelet 06/04/19 06/08/24 History Ejection fraction %: 60 Have you fallen in the past year?: No PFSH Medical History Complete heart block by electrocardiogram Presence of cardiac pacemaker Hypothyroid Hypogonadism Rheumatic tricuspid insufficiency Paroxysmal atrial fibrillation Rheumatic aortic stenosis Pulmonary HTN Tricuspid regurgitation Mitral valve stenosis, rheumatic Surgical History S/P transcatheter mitral valve replacement (TMVR) History of mitral valve replacement with bioprosthetic valve ( 10/20/13) History of left heart catheterization (LHC) History of mitral valve replacement (10/20/13) Family History Father Colon cancer Sister FH: mitral valve repair Mother No problems noted. Social History Smoking Status: Never smoker alcohol intake: never substance use type: does not use caffeine: No what type of physical activity do you participate in: none seatbelt use: always do you feel safe at home: Yes ROS Const Const: Negative for fatigue or weakness ENT ENT: Negative for dizziness or balance problems Cardio Chest Pain: No Palpitations: No Edema: None Muscle aches with walking: None Resp Respiratory: Negative for SOB with activity, SOB at rest or SOB orthopnea SOB lying down GI GI: Negative nausea, vomiting or heartburn Musc Musc: Negative for muscle weakness or balance problems Neuro Neuro: Negative for dizziness, lightheadedness, near syncope, syncope or weakness Endo Endo: Negative for fatigue Cardiology Exam Const Appearance: cooperative, healthy appearing, comfortable, no acute distress and well developed Looks much younger than his stated age gets around normally up and down off the exam table without any effort at all. Head Head: normal to inspection Eyes General: appearance normal, both eyes and all related structures Neck Neck: normal visual inspection and no JVD Carotids: Negative bruit Chest Chest inspection: normal inspection of the chest and Pacemaker/ICD Yes (more content not included)... Normal [facility] Echo Completeon 05-27-2024 Echo Complete [facility] [address] [address] Echo Complete 05/27/24 0855 MR#: [id number] Acct: [id number] Name: RUPERTO CASTILLO Rep #: [id number] : 1935 88 From: Schuyler Angel MD Attending Dr: ELICEO Peralta Status: REG CLI Ordering Dr: Shantel Shepard Date: 07/20 Location: [facility] Sex: M C Admitted: Reason For Study: TMVR Procedure This was a 2D Doppler, Color Flow transthoracic echocardiogram. Exam performed in department. Left Ventricle Normal LV size. Moderate concentric left ventricular hypertrophy. The left ventricular ejection fraction is 55 %. Right Ventricle Normal RV size. ICD or pacer leads identified within the right ventricle. The right ventricle is normal in size, function, and thickness. Atria The left atrium is severely enlarged. Normal right atrium. ICD or pacer leads identified within the right atrium. Mitral Valve Peak transmitral valve gradient 13 mmHg. Mean transmitral valve gradient 7 mmHg. Stable appearing bioprosthetic mitral valve apparatus. Tricuspid Valve Normal tricuspid valve. Mild (1+) tricuspid valve insufficiency. Pulmonary artery systolic pressure is 37 mmHg. Aortic Valve Normal aortic valve. Trisinus/trileaflet aortic valve. Pulmonic Valve Normal pulmonic valve. MMode/2D Measurements Calculations LVIDd: 3.3 cm IVSd: 1.5 cm LAV(MOD-bp): 113.6 ml LVIDs: 2.5 cm LVPWd: 1.6 cm LAV(MOD-bp) Indexed: 65.3 ml/m2 RVDd: 3.9 cm FS: 23.9 % LAV(MOD-sp2): 89.7 ml LAV(MOD-sp4): 126.1 ml RVOT diam: 2.3 cm LVAd ap4: 21.0 cm2 SV(MOD-sp4): 31.6 ml LVLd ap4: 6.4 cm SI(MOD-sp4): 18.2 ml/m2 EDV(MOD-sp4): 60.8 ml EDV(sp4-el): 58.5 ml LVAs ap4: 13.3 cm2 LVLs ap4: 5.5 cm ESV(MOD-sp4): 29.2 ml ESV(sp4-el): 27.5 ml EF(MOD-sp4): 52.0 % EF(sp4-el): 53.0 % SV(sp4-el): 31.0 ml LA A4 area: 30.2 cm2 LA dimension(2D): 5.2 cm RA A4 area: 12.9 cm2 Time Measurements MV dec time: 0.27 sec Doppler Measurements Calculations MV E max abhinav: 139.9 cm/sec Lat Peak E' Abhinav: 7.3 cm/sec Med Peak E' Abhinav: 7.7 cm/sec MV A max abhinav: 148.7 cm/sec E/E' lat: 19.1 E/E' med: 18.1 MV E/A: 0.94 MV V2 max: 183.2 cm/sec MV dec slope: 518.9 cm/sec2 Ao V2 max: 215.3 cm/sec MV max P.4 mmHg Ao max P.6 mmHg MV V2 mean: 124.9 cm/sec Ao V2 mean: 155.8 cm/sec MV mean P.2 mmHg Ao mean P.1 mmHg MV V2 VTI: 64.6 cm Ao V2 VTI: 48.8 cm AV (velocity ratio): 0.99 LV V1 max: 197.3 cm/sec PA V2 max: 98.2 cm/sec SV(RVOT): 50.0 ml LV V1 max P.6 mmHg PA V2 mean: 70.7 cm/sec LV V1 mean P.0 mmHg PA mean PG (full): 1.4 mmHg LV V1 mean: 151.6 cm/sec LV V1 VTI: 48.1 cm TR max abhinav: 289.3 cm/sec TR max P.5 mmHg ECHO/Echo Complete Interpretation Summary Normal LV size. Moderate concentric left ventricular hypertrophy. The left ventricular ejection fraction is 55 %. The left atrium is severely enlarged. Stable appearing bioprosthetic mitral valve apparatus. Mean transmitral valve gradient 7 mmHg. The gradients across the mitral valve appeared to be better at this time. ___ Ordering Physician: Shantel Shepard Referring Physician: Shantel Shepard Performed By: Ethel Spaulding RCS 05/27/241213 Date Schuyler Angel MD CC: Dr. Jesus Taylor MD; ELICEO Peralta Date Dictated: 05/27/24 0855 Date Transcribed: 05/27/241213 Relay Dispatcher: Signed Normal [facility] CNOVon 04-06-2024 CNOV Office Visit (FAMPWS ) ----- RUPERTO CASTILLO ([id number]) 1935 M Date Time Provider Department 04/06/24 8:00 AM JESUS TAYLOR During your visit today, we recorded the following information about you: Pulse Respiration Blood pressure Weight 76/minute 18/minute 124/68 64.4 kg Jesus Taylor MD 04/06/2024 10:38 AM Signed Chief Complaint Patient presents with: F/U 6 Month HPI Ruperto Castillo is a 88 year old male who presents here today for a 6 month follow up. Pt here today for his routine follow up. Thyroid - Stable on current regimen of Synthroid 75 mcg once daily. Denies any missed dosages. Has been referred to Endo in the past, Dr. Casey. No longer following. Osteo - Taking Calcium and Vit D once daily. Was unable to tolerate Fosamax and Boniva in the past. Cardio - Has been seen recently due to hospital admissions x 2 due to CHF and having his valve replaced. Pt following with [facility]. Pt overall doing well at this time. Denies any chest pain, sob, edema or dizziness. Denies any issues with sleeping. Was given order from [facility] to start Rehab. Pt reports he's not done cardiac rehab at this time. Had restrictions for 6 weeks, not lifting more than 10 lbs with his left arm. He's back to doing his normal activities with no issues, overall feeling well. Has Pacemaker checks through [facility]. HM - Denies having Adv Dir/Living Will. Check with insurance regarding Shingles vaccine. Wants flu vaccine. Declines Covid vaccine and RSV vaccine. Past medical history, appointments, medications, allergies reviewed. Previous Medical History PAST MEDICAL HISTORY Diagnosis Date Diverticulosis of colon (without mention of hemorrhage) History of transfusion Mitral stenosis Osteoporosis Polio Hx as a child. left arm weakness/atrophy. 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 AGE 4 Unspecified hypothyroidism Previous Surgical History PAST SURGICAL HISTORY Procedure Laterality Date COLONOSCOPY FLX DX W/COLLJ SPEC WHEN PFRMD 07/31/2001 Colonoscopy COLONOSCOPY FLX DX W/COLLJ SPEC WHEN PFRMD 12/28/2007 Colonoscopy COLONOSCOPY FLX DX W/COLLJ SPEC WHEN PFRMD 03/07/2014 Colonoscopy COLONOSCOPY FLX DX W/COLLJ SPEC WHEN PFRMD 03/10/2017 no repeat needed COLONOSCOPY FLX DX W/COLLJ SPEC WHEN PFRMD 11/21/2020 HEART SURGERY HX I/D PERIANAL ABSCESS, SUPERFICIAL 03/23/2012 Right anterior perianal abscess PAST SURGICAL HISTORY OF Hemorrhoidectomy PAST SURGICAL HISTORY OF right rotator cuff REPLACEMENT MITRAL VALVE W/CARDIOPULMONARY BYP 2013 Mitral valve replacement SURG TX ANAL FISTULA INTERSPHINCTERIC 04/09/2012 TONSILLECTOMY PRIMARY/SECONDARY Tonsillectomy Family History FAMILY HISTORY Problem Relation Age of Onset Colon Cancer Father Osteoporosis Mother Ischemic Heart Disease Sister d. 65 during CABG. other (Mitral valve disease) Sister rheumatic fever Hx. Patient Allergies ALLERGIES Allergen Reactions Alendronate Unknown Fosamax [Alendronat* Intolerance musculoskeletal pain Current Medications Current Outpatient Medications on File Prior to Visit Medication Sig aspirin, enteric coated (ASPIRIN, ENTERIC COATED) 325 mg EC tablet Take 1 tablet by mouth once daily. levothyroxine (SYNTHROID) 75 mcg tablet Take one pill daily for 7 days/week therapeutic multivitamin tablet Take 1 tablet by mouth daily with breakfast. No current facility-administered medications on file prior to visit. Social History Social History Tobacco Use Smoking status: Never Smokeless tobacco: Never Vaping Use Vaping status: Never Used Substance Use Topics Alcohol use: No Drug use: No EXAM: BP 124/68 (BP Site: Left Arm, BP Position: Sitting, BP Cuff Size: Regular Adult) Pulse 76 Resp 18 Wt 64.4 kg (141 lb 15.6 oz) BMI 22.92 kg/m? General Appearance: Well appearing, alert, in no acute distress, well-hydrated, well nourished.. Neck: Supple, no adenopathy; thyroid symmetric, normal size, no bruits. Lungs: Lungs clear to auscultation. No wheezing, rhonchi, rales.. Heart: RRR without murmur, gallop, or rubs. No ectopy. Health Maintenance List RSV Vaccine(1 - 1-dose 75+ series) Never done Shingrix Vaccine(2 of 3) due on 10/14/2014 Advance Directive Discussion due on 05/26/2023 Influenza Vaccine(1) due on 01/25/2024 Covid-19 Vaccine( season) Never done Depression Screening due on 10/02/2024 Anxiety Screening due on 10/02/2024 DTaP,Tdap,Td Vaccine(8 - Td or Tdap) due on 05/02/2025 Diabetes Screening due on 04/02/2027 Pneumococcal Vaccine: 65+ Completed Data reviewed Appointment on 04/02/2024 Component Date Value Protein, Total 04/02/2024 7.2 Albumin 04/02/2024 4.0 Calcium, Total 04/02/2024 9.3 Bilirubin, Total 04/02/2024 0.4 Alkaline Phosphata (more content not included)... Normal [facility] CBC W Auto Differential pane l (Bld)on 04-02-2024 Basophils (Bld) [#/Vol] 0.04 10*3/uL Normal <0.11 [facility] Comment on above: Order Comment: Speci men Type: BLOOD SPECIMEN Ordering Facility: [facility] Address: [address] [place] [address] Performed By: #### 2 4323-8, 6-3 #### [facility] CLIA [id number] [address] [place] [address] [place] Basophils/100 WBC (Bld) 0.7 % Normal C [facility] Comment on above: Order Comment: Speci men Type: BLOOD SPECIMEN Ordering Facility: [facility] Address: [address] [place] [address] Performed By: #### 2 4323-8, 6-3 #### [facility] CLIA [id number] [address] [place] [address] [place] Differential cell count method Nom (Bld) Auto Normal [facility] Comment on above: Order Comment: Speci men Type: BLOOD SPECIMEN Ordering Facility: [facility] Address: [address] [place] [address] Performed By: #### 2 4323-8, 3016-3 #### [facility] CLIA [id number] [address] [place] [address] [place] Eosinophils (Bld) [#/Vol] 0.25 10*3/uL Normal <0.46 [facility] Comment on above: Order Comment: Speci men Type: BLOOD SPECIMEN Ordering Facility: [facility] Address: [address] [place] [address] Performed By: #### 2 4323-8, 6-3 #### [facility] CLIA [id number] [address] [place], [place] [id number] [place] Eosinophils/100 WBC (Bld) 4.3 % Normal [facility] Comment on above: Order Comment: Speci men Type: BLOOD SPECIMEN Ordering Facility: [facility] Address: [address] [place] [address] Performed By: #### 2 4323-8, 3015-3 #### [facility] CLIA [id number] [address] [place] [address] [place] Erythrocyte distribution width (RBC) [Ratio] 14.7 % Normal 11.5-15.0 [facility] Comment on above: Order Comment: Speci men Type: BLOOD SPECIMEN Ordering Facility: [facility] Address: [address] [place] [address] Performed By: #### 2 4323-8, 3015-3 #### [facility] CLIA [id number] [address] [place] [address] [place] Hematocrit (Bld) [Volume fraction] 42.9 % Normal 39.0-51.0 [facility] Comment on above: Order Comment: Speci men Type: BLOOD SPECIMEN Ordering Facility: [facility] Address: [address] [place] [address] Performed By: #### 2 4323-8, 6-3 #### [facility] CLIA [id number] [address] [place] [address] [place] Hemoglobin (Bld) [Mass/Vol] 13.8 g/dL Normal 13.0-17.0 [facility] Comment on above: Order Comment: Speci men Type: BLOOD SPECIMEN Ordering Facility: [facility] Address: [address] [place], [place] [address] Performed By: #### 2 4323-8, 3016-3 #### [facility] CLIA [id number] [address] [place] [address] [place] Immature granulocytes (Bld) [#/Vol] 10*3/uL Normal <0.10 [facility] Comment on above: Order Comment: Speci men Type: BLOOD SPECIMEN Ordering Facility: [facility] Address: [address] [place] [address] Performed By: #### 2 4323-8, 3015-3 #### [facility] CLIA [id number] [address] [place] [address] [place] Immature granulocytes/100 WBC (Bld) 0.3 % Normal [facility] Comment on above: Order Comment: Speci men Type: BLOOD SPECIMEN Ordering Facility: [facility] Address: [address] [place] [address] Performed By: #### 2 432-8, 3015-3 #### [facility] CLIA [id number] [address] [place] [address] [place] Lymphocytes (Bld) [#/Vol] 1.33 10*3/uL Normal 1.00-4.00 [facility] Comment on above: Order Comment: Speci men Type: BLOOD SPECIMEN Ordering Facility: [facility] Address: [address] [place] [address] Performed By: #### 2 4323-8, 3015-3 #### [facility] CLIA [id number] [address] [place] [address] [place] Lymphocytes/100 WBC (Bld) 22.7 % Normal [facility] Comment on above: Order Comment: Speci men Type: BLOOD SPECIMEN Ordering Facility: [facility] Address: [address] [place] [address] Performed By: #### 2 4323-8, 6-3 #### [facility] CLIA [id number] [address] [place] [address] [place] MCH (RBC) [Entitic mass] 30.5 pg Normal 26.0-34.0 [facility] Comment on above: Order Comment: Speci men Type: BLOOD SPECIMEN Ordering Facility: [facility] Address: [address] [place] [address] Performed By: #### 2 4323-8, 3016-3 #### [facility] CLIA [id number] [address] [place] [address] [place] MCHC (RBC) [Mass/Vol] 32.2 g/dL Normal 30.5-36.0 [facility] Comment on above: Order Comment: Speci men Type: BLOOD SPECIMEN Ordering Facility: [facility] Address: [address] [place] [address] Performed By: #### 2 4323-8, 3016-3 #### [facility] CLIA [id number] [address] [place] [address] [place] MCV (RBC) [Entitic vol] 94.7 fL Normal 80.0-100.0 C [facility] Comment on above: Order Comment: Speci men Type: BLOOD SPECIMEN Ordering Facility: [facility] Address: [address] [place] [address] Performed By: #### 2 4323-8, 3016-3 #### [facility] CLIA [id number] [address] [place] [address] [place] Monocytes (Bld) [#/Vol] 0.47 10*3/uL Normal <0.87 [facility] Comment on above: Order Comment: Speci men Type: BLOOD SPECIMEN Ordering Facility: [facility] Address: [address] [place] [address] Performed By: #### 2 4323-8, 3016-3 #### [facility] CLIA [id number] [address] [place] [id number] [address] [place] Monocytes/100 WBC (Bld) 8.0 % Normal C [facility] Comment on above: Order Comment: Speci men Type: BLOOD SPECIMEN Ordering Facility: [facility] Address: [address] [place], [place] [address] Performed By: #### 2 4323-8, 3016-3 #### [facility] CLIA [id number] [address] [place] [address] [place] Neutrophils (Bld) [#/Vol] 3.76 10*3/uL Normal 1.45-7.50 [facility] Comment on above: Order Comment: Speci men Type: BLOOD SPECIMEN Ordering Facility: [facility] Address: [address] [place] [address] Performed By: #### 2 4323-8, 3015-3 #### [facility] CLIA [id number] [address] [place] [address] [place] Neutrophils/100 WBC (Bld) 64.0 % Normal [facility] Comment on above: Order Comment: Speci men Type: BLOOD SPECIMEN Ordering Facility: [facility] Address: [address] [place] [address] Performed By: #### 2 4323-8, 6-3 #### [facility] CLIA [id number] [address] [place] [address] [place] Nucleated RBC (Bld) [#/Vol] 10*3/uL Normal <0.01 [facility] Comment on above: Order Comment: Speci men Type: BLOOD SPECIMEN Ordering Facility: [facility] Address: [address] [place] [address] Performed By: #### 2 4323-8, 3016-3 #### [facility] CLIA [id number] [address] [place] [address] [place] Nucleated RBC/100 WBC (Bld) [Ratio] 0.0 /100 WBC Normal [facility] Comment on above: Order Comment: Speci men Type: BLOOD SPECIMEN Ordering Facility: [facility] Address: [address] [place] [address] Performed By: #### 2 4323-8, 3016-3 #### [facility] CLIA [id number] [address] [place] [address] [place] Platelet mean volume (Bld) [Entitic vol] 10.1 fL Normal 9.0-12.7 [facility] Comment on above: Order Comment: Speci men Type: BLOOD SPECIMEN Ordering Facility: [facility] Address: [address] [place] [address] Performed By: #### 2 4323-8, 3016-3 #### [facility] CLIA [id number] [address] [place] [address] [place] Platelets (Bld) [#/Vol] 143 10*3/uL Low 150-400 [facility] Comment on above: Order Comment: Speci men Type: BLOOD SPECIMEN Ordering Facility: [facility] Address: [address] [place] [address] Performed By: #### 2 4323-8, 3016-3 #### [facility] CLIA [id number] [address] [place] [address] [place] RBC (Bld) [#/Vol] 4.53 10*6/uL Normal 4.20-6.00 [facility] Comment on above: Order Comment: Speci men Type: BLOOD SPECIMEN Ordering Facility: [facility] Address: [address] [place] [address] Performed By: #### 2 4323-8, 3016-3 #### [facility] CLIA [id number] [address] [place] [address] [place] WBC (Bld) [#/Vol] 5.87 10*3/uL Normal 3.70-11.00 [facility] Comment on above: Order Comment: Speci men Type: BLOOD SPECIMEN Ordering Facility: [facility] Address: [address] [id number] Performed By: #### 2 4323-8, 3016-3 #### [facility] CLIA [id number] [address] [place] [address] [place] Comprehensive metabolic 2000 panelon 04-02-2024 Albumin [Mass/Vol] 4.0 g/dL Normal 3.9-4.9 [facility] Comment on above: Order Comment: Speci men Type: BLOOD SPECIMEN Ordering Facility: [facility] Address: [address] [place] [address] Performed By: #### 2 4323-8, 3016-3 #### [facility] CLIA [id number] [address] [place] [address] [place] ALP [Catalytic activity/Vol] 72 U/L Normal 38-113 [facility] Comment on above: Order Comment: Speci men Type: BLOOD SPECIMEN Ordering Facility: [facility] Address: [address] [place] [address] Performed By: #### 2 4323-8, 3016-3 #### [facility] CLIA [id number] [address] [place] [address] [place] ALT [Catalytic activity/Vol] 19 U/L Normal 10-54 [facility] Comment on above: Order Comment: Speci men Type: BLOOD SPECIMEN Ordering Facility: [facility] Address: [address] [place] [address] Performed By: #### 2 4323-8, 3016-3 #### [facility] CLIA [id number] [address] [place] [address] [place] Anion gap [Moles/Vol] 11 mmol/L Normal 8-15 [facility] Comment on above: Order Comment: Speci men Type: BLOOD SPECIMEN Ordering Facility: [facility] Address: [address] [place], [place] [address] Performed By: #### 2 4323-8, 3016-3 #### [facility] CLIA [id number] [address] [place], [place] [address] [place] AST [Catalytic activity/Vol] 25 U/L Normal 14-40 [facility] Comment on above: Order Comment: Speci men Type: BLOOD SPECIMEN Ordering Facility: [facility] Address: [address] [place] [address] Performed By: #### 2 4323-8, 3016-3 #### [facility] CLIA [id number] [address] [place] [address] [place] Bilirubin [Mass/Vol] 0.4 mg/dL Normal 0.2-1.3 [facility] Comment on above: Order Comment: Speci men Type: BLOOD SPECIMEN Ordering Facility: [facility] Address: [address] [place] [address] Performed By: #### 2 4323-8, 6-3 #### [facility] CLIA [id number] [address] [place] [address] [place] Calcium [Mass/Vol] 9.3 mg/dL Normal 8.5-10.2 [facility] Comment on above: Order Comment: Speci men Type: BLOOD SPECIMEN Ordering Facility: [facility] Address: [address] [place] [address] Performed By: #### 2 4323-8, 3016-3 #### [facility] CLIA [id number] [address] [place] [address] [place] Chloride [Moles/Vol] 104 mmol/L Normal 98-107 [facility] Comment on above: Order Comment: Speci men Type: BLOOD SPECIMEN Ordering Facility: [facility] Address: [address] [place] [address] Performed By: #### 2 4323-8, 3016-3 #### [facility] CLIA [id number] [address] [place] [address] [place] CO2 [Moles/Vol] 28 mmol/L Normal 22-30 [facility] Comment on above: Order Comment: Speci men Type: BLOOD SPECIMEN Ordering Facility: [facility] Address: [address] [place] [address] Performed By: #### 2 4323-8, 6-3 #### [facility] CLIA [id number] [address] [place] [address] [place] Creatinine [Mass/Vol] 1.05 mg/dL Normal 0.73-1.22 [facility] Comment on above: Order Comment: Speci men Type: BLOOD SPECIMEN Ordering Facility: [facility] Address: [address] [place] [address] Performed By: #### 2 4323-8, 3 #### [facility] CLIA [id number] [address] [place] [address] [place] Creatinine and Glomerular filtration rate.predicted panel (S/P/Bld) 69 mL/min/1.73m??? Normal >=60 [facility] Comment on above: Order Comment: Speci men Type: BLOOD SPECIMEN Ordering Facility: [facility] Address: [address] [place] [address] Result Comment: Linda mated Glomerular Filtration Rate (eGFR) is calculated using the 2020 CKD-EPI creatinine equation. This equation utilizes serum creatinine, sex, and age as parameters. The creatinine assay has traceable calibration to isotope dilution-mass spectrometry. Refer to KDIGO guidelines for clinical interpretation. In patients with unstable renal function, e.g. those with acute kidney injury, the eGFR may not accurately reflect actual GFR. Performed By: #### 2 4323-8, 3015-3 #### [facility] CLIA [id number] [address] [place] [address] [place] Glucose [Mass/Vol] 101 mg/dL High 74-99 [facility] Comment on above: Order Comment: Speci men Type: BLOOD SPECIMEN Ordering Facility: [facility] Address: [address] [place] [address] Result Comment: The [place] [employer] (ADA) provides guidance for cutoff values for fasting glucose and random glucose. The ADA defines fasting as no caloric intake for at least 8 hours. Fasting plasma glucose results between 100 to 125 mg/dL indicate increased risk for diabetes (prediabetes). Fasting plasma glucose results greater than or equal to 126 mg/dL meet the criteria for diagnosis of diabetes. In the absence of unequivocal hyperglycemia, results should be confirmed by repeat testing. In a patient with classic symptoms of hyperglycemia or hyperglycemic crisis, random plasma glucose results greater than or equal to 200 mg/dL meet the criteria for diagnosis of diabetes. Reference: Standards of Medical Care in Diabetes 2016, [place] [employer]. Diabetes Care. 2016.39(Suppl 1). Performed By: #### 2 4323-8, 3016-3 #### [facility] CLIA [id number] [address] [place] [address] [place] Potassium [Moles/Vol] 3.6 mmol/L Low 3.7-5.1 [facility] Comment on above: Order Comment: Speci men Type: BLOOD SPECIMEN Ordering Facility: [facility] Address: [address] [place] [address] Performed By: #### 2 4323-8, 3016-3 #### [facility] CLIA [id number] [address] [place] [address] [place] Protein [Mass/Vol] 7.2 g/dL Normal 6.3-8.0 [facility] Comment on above: Order Comment: Speci men Type: BLOOD SPECIMEN Ordering Facility: [facility] Address: [address] [place] [address] Performed By: #### 2 4323-8, 3016-3 #### [facility] CLIA [id number] [address] [place] [address] [place] Sodium [Moles/Vol] 143 mmol/L Normal 136-144 [facility] Comment on above: Order Comment: Speci men Type: BLOOD SPECIMEN Ordering Facility: [facility] Address: [address] [place] [address] Performed By: #### 2 4323-8, 3016-3 #### [facility] CLIA [id number] [address] [place] [address] [place] Urea nitrogen [Mass/Vol] 24 mg/dL Normal 9-24 [facility] Comment on above: Order Comment: Speci men Type: BLOOD SPECIMEN Ordering Facility: [facility] Address: [address] [place] [address] Performed By: #### 2 4323-8, 3016-3 #### [facility] CLIA [id number] [address] [place] [address] [place] TSH SerPl-aCncon 04-02-2024 TSH Qn 0.277 m[IU]/L Normal 0.270-4.200 [facility] Comment on above: Order Comment: Speci men Type: BLOOD SPECIMEN Ordering Facility: [facility] Address: [address] [place] [address] Performed By: #### 2 4323-8, 3016-3 #### [facility] CLIA [id number] [address] [place] [address] [place] Basophil percentageOrdered B y: Shantel Shepard on 09-01-2023 Chloride [Moles/Vol] 106 mmol/L 98-107 [facility] Glucose [Mass/Vol] 82 mg/dL 74-106 [facility] Potassium [Moles/Vol] 3.7 mmol/L 3.5-5.1 [facility] Sodium [Moles/Vol] 141 mmol/L 136-145 [facility] Laboratory - Chemistry and C hemistry - challengeOrdered By: Shantel Shepard on 09-01-2023 CO2 [Moles/Vol] 29.0 mmol/L 21.0-32.0 [facility] Natriuretic peptide B (Bld) [Mass/Vol] 253.5 pg/mL 0-100 [facility] Urea nitrogen/Creatinine [Mass ratio] 19.4 mg/mg 10-20 [facility] No Panel InformationOrdered By: Shantel Shepard on 09-01-2023 Estimated GFR (MDRD) Amer 83 mL/min >60 [facility] Comment on above: GFR Calc Estimated GFR (MDRD) Non-Af Amer 69 mL/min >60 [facility] Comment on above: Non- GFR Calc Serum or plasma calcium madisyn urement (mass/volume)Ordered By: Shantel Shepard on 09-01-2023 Calcium [Mass/Vol] 9.2 mg/dL 8.5-10.1 [facility] Serum or plasma creatinine m easurement (mass/volume)Ordered By: Shantel Shepard on 09-01-2023 Creatinine [Mass/Vol] 1.08 mg/dL 0.70-1.30 [facility] Comment on above: The validity of the calculated GFR & GFRAA in patients over 70 years has not been determined. Clinical correlation is essential. Serum or plasma urea nitroge n measurement (mass/volume)Ordered By: Shantel Shepard on 09-01-2023 Urea nitrogen [Mass/Vol] 21 mg/dL 7-18 [facility] Thin prep Papanicolaou smear with manual screeningOrdered By: Shantel Shepard on 09-01-2023 Thin prep Papanicolaou smear with manual screening 6 -15 [facility] Office Visiton 12-12-2016 Documentation of current medications (procedure) Done Invalid Interpretation Code [employer] Work Phone: Fall risk assessment No [facility] [employer] Work Phone: [phone] Protein mass conc Done [place] [employer] Work Phone: Tobacco smoking status NHIS Never smoker [facility] [employer] Work Phone: Tobacco use [facility] Never smoker Invalid Interpretation Code [employer] Work Phone: Office Visit: [facility] 06-05-19 17 Documentation of current medications (procedure) Done Invalid Interpretation Code [place] [employer] Work Phone: Clinical Lists Update: Prelo manager intranet 05-31-2016 Left ventricular Ejection fraction 65 % [employer] Work Phone: Clinical Lists Update: Prelo manager intranet 02-08-2016 Cholesterol in HDL mass conc 44 mg/dL Low [facility] Work Phone: [phone] Cholesterol in LDL mass conc 137 mg/dL High [facility] Work Phone: [phone] Cholesterol in LDL/Cholesterol in HDL mass ratio 3.11 [facility] Work Phone: Cholesterol mass conc 196 mg/dL [facility] Work Phone: Cholesterol.total/Sandra sterol in HDL mass ratio 4.45 {ratio} [facility] Work Phone: [phone] Lipoprotein.pre-beta mass conc 15 mg/dL [facility] Work Phone: [phone] Triglyceride mass conc 74 mg/dL [facility] Work Phone: [phone] Office Visiton 12-07-2015 Tobacco use [facility] Never smoker Invalid Interpretation Code [facility] [employer] Work Phone: [phone] Lab Report: Erythrocyte Sed Rateon 07-14-2015 Erythrocyte sedimentation rate 25 mm/h High 0-20 [facility] Work Phone: [phone] Replaced Document: (P) CBC W /Diff, Automatedon 07-14-2015 Basophils/100 leukocytes 0.4 % Invalid Interpretation Code 0-1 [facility] Work Phone: Basophils/100 WBC (Bld) 0.4 % 0-1 [facility] [employer] Work Phone: Eosinophils/100 leukocytes 3.5 % Invalid Interpretation Code 0-5 [facility] Work Phone: Eosinophils/100 WBC (Bld) 3.5 % 0-5 [facility] Work Phone: [phone] Erythrocyte distribution width Ratio (RBC) 46.1 fL High 35.1-43.9 [facility] Work Phone: Erythrocyte distribution width Ratio (RBC) 13.3 % 11.6-14.6 [facility] Work Phone: [phone] Erythrocytes (RBC) 4.74 10*6/uL Invalid Interpretation Code 4.6-6.2 [facility] [employer] Work Phone: Hematocrit (HCT) 44.7 % Invalid Interpretation Code 40-54 [facility] Work Phone: Hematocrit Volume Fraction (Bld) 44.7 % 40-54 [facility] Work Phone: Hemoglobin (HGB) 14.7 g/dL 13.0-16.5 [facility] Work Phone: Immature granulocytes #/vol (Bld) 0.400 % 0.0-0.9 [facility] Work Phone: immature granulocytes, percentage of total cells, blood 0.400 % Invalid Interpretation Code 0.0-0.9 [facility] Work Phone: Lymphocytes 1.67 X10 3/UL Invalid Interpretation Code 0.83-4.51 [facility] Work Phone: Lymphocytes #/vol (Bld) 1.67 X10 3/UL 0.83-4.51 [facility] Work Phone: Lymphocytes/100 leukocytes 30.7 % Invalid Interpretation Code 19-41 [facility] Work Phone: Lymphocytes/100 WBC (Bld) 30.7 % 19-41 [facility] Work Phone: MCH 31.0 pg Invalid Interpretation Code 27.0-32.0 [facility] Work Phone: MCH Entitic mass (RBC) 31.0 pg 27.0-32.0 [facility] Work Phone: MCHC 32.9 G/GL Invalid Interpretation Code 32-36 [facility] Work Phone: MCHC mass conc (RBC) 32.9 G/GL 32-[address] [facility] Work Phone: MCV 94.3 fL High 80-94 [facility] Work Phone: MCV Entitic volume (RBC) 94.3 fL High 80-94 [facility] Work Phone: Monocytes/100 leukocytes 7.4 % Invalid Interpretation Code 0-10 [facility] Work Phone: Monocytes/100 WBC (Bld) 7.4 % 0-10 [facility] Work Phone: neutrophil count, blood 3.1 X10 3/UL Invalid Interpretation Code 2.0-7.7 [employer] Work Phone: Neutrophils #/vol (Bld) 3.1 X10 3/UL 2.0-7.7 [employer] Work Phone: Neutrophils/100 leukocytes 57.6 % Invalid Interpretation Code 47-70 [facility] Work Phone: Neutrophils/100 WBC (Bld) 57.6 % 47-70 [employer] Work Phone: [phone] Platelet mean volume Entitic volume (Bld) 9.6 fL 6.2-12.0 [employer] Work Phone: Platelets 188 10*3/mm3 Invalid Interpretation Code 150-450 [employer] Work Phone: Platelets #/vol (Bld) 188 10*3/mm3 150-450 [facility] [employer] Work Phone: [phone] PMV by William 9.6 fL Invalid Interpretation Code 6.2-12.0 [employer] Work Phone: [phone] RBC #/vol (Bld) 4.74 10*6/uL 4.6-6.2 [employer] Work Phone: [phone] RDW-CA 13.3 % Invalid Interpretation Code 11.6-14.6 [employer] Work Phone: [phone] red blood cell distribution width, size density 46.1 fL High 35.1-43.9 [employer] Work Phone: WBC #/vol (Bld) 5.4 10*3/uL 4.4-11.0 [employer] Work Phone: [phone] WBC (Leukocytes) 5.4 10*3/uL Invalid Interpretation Code 4.4-11.0 [employer] Work Phone: [phone] Office Visit: [facility] 07-13-19 16 General cardiovascular disease 10Y risk [#] Jennings.D'Agostino 18 % [employer] Work Phone: [phone] Replaced Document: [place] [employer] 07-13-2015 EKG QRS axis -36 deg [employer] Work Phone: [phone] electrocardiogram interpretation Sinus Rhythm -Left axis. Low voltage with rightward P-axis and rotation -possible pulmonary disease. ABNORMAL Invalid Interpretation Code [employer] Work Phone: [phone] GE use only - for [employer] import when terms are not otherwise specified 417 ms Invalid Interpretation Code [employer] Work Phone: [phone] Interpretation Sinus Rhythm -Left a xis. Low voltage with rightward P-axis and rotation -possible pulmonary disease. ABNORMAL [employer] Work Phone: [phone] P [place] 63 deg [employer] Work Phone: P wave axis, electrocardiogram 63 deg Invalid Interpretation Code [employer] Work Phone: IA Interval 158 ms [employer] Work Phone: IA interval, electrocardiogram 158 ms Invalid Interpretation Code [employer] Work Phone: Pulse (Heart Rate) 80 /min Invalid Interpretation Code [employer] Work Phone: QRS axis, electrocardiogram -36 deg Invalid Interpretation Code [employer] Work Phone: [phone] QRS Duration 92 ms [employer] Work Phone: QRS duration, electrocardiogram 92 ms Invalid Interpretation Code [employer] Work Phone: QT Interval new path ms [employer] Work Phone: [phone] QT interval, electrocardiogram new path ms Invalid Interpretation Code [employer] Work Phone: [phone] QTc [place] 417 ms [employer] Work Phone: [phone] T [place] 43 deg [employer] Work Phone: T wave axis, electrocardiogram 43 deg Invalid Interpretation Code [employer] Work Phone: Clinical Lists Update: Prelo manager intranet 02-06-2015 Alanine aminotransferase (ALT) 17 U/L [employer] Work Phone: Albumin 3.9 g/dL [employer] Work Phone: [phone] Alkaline phosphatase (ALP) 54 U/L Invalid Interpretation Code [employer] Work Phone: [phone] ALP enzyme act/vol (Bld) 54 U/L [employer] Work Phone: [phone] Anion gap 10 mmol/L Invalid Interpretation Code [employer] Work Phone: [phone] Anion gap molar conc 10 mmol/L [employer] Work Phone: [phone] Aspartate aminotransferase (AST) 23 U/L [employer] Work Phone: [phone] Bilirubin (total) 0.4 mg/dL [employer] Work Phone: [phone] Calcium 8.9 mg/dL [employer] Work Phone: [phone] Chloride 102 mmol/L [employer] Work Phone: [phone] Cholesterol 186 mg/dL [employer] Work Phone: [phone] Cholesterol to HDL Ratio 4.33 {ratio} [employer] Work Phone: [phone] CO2 29 mmol/L Invalid Interpretation Code [employer] Work Phone: [phone] CO2 ppres (BldV) 29 mmol/L [employer] Work Phone: [phone] Creatinine 0.93 mg/dL [employer] Work Phone: [phone] Glucose 84 mg/dL Invalid Interpretation Code [employer] Work Phone: [phone] Glucose mass conc 84 mg/dL [employer] Work Phone: [phone] HDL Cholesterol 43 mg/dL Low [employer] Work Phone: [phone] LDL Cholesterol 127 mg/dL [employer] Work Phone: [phone] LDL/HDL ratio, serum 2.95 [employer] Work Phone: [phone] Potassium 4.0 mmol/L [employer] Work Phone: [phone] Protein 7.1 g/dL [employer] Work Phone: [phone] Sodium 141 mmol/L [employer] Work Phone: [phone] Thyroid stimulating hormone (TSH) 1.170 u[iU]/mL [facility] Work Phone: [phone] Triglyceride 81 mg/dL [facility] Work Phone: [phone] Urea nitrogen 18 mg/dL [facility] Work Phone: [phone] very low density lipoproteins 16 mg/dL [facility] Work Phone: [phone] Office Visit: [facility] 05-31-19 15 cardiac risk group [facility] Work Phone: [phone] Tobacco smoking status NHIS Never [facility] Work Phone: [phone] Lab Report: Prothrombin Time w/INRon 05-11-2014 Coagulation tissue factor induced in platelet poor plasma 23.3 s Critically high 11.7-14.9 [facility] Work Phone: [phone] Office Visit: [facility] 05-11-2014 Coagulation tissue factor induced in platelet poor plasma 23.3 s [facility] Work Phone: [phone] INR Coag RelTime (PPP) 2.1 {INR} [facility] Work Phone: [phone] INR in blood by coagulation Hospital lab [facility] Work Phone: [phone] INR in blood by coagulation 2.1 {INR} Invalid Interpretation Code [facility] Work Phone: [phone] INR in blood by coagulation 2 to 3 Invalid Interpretation Code [facility] Work Phone: [phone] international normalized ratio (INR) range 2 to 3 [facility] Work Phone: [phone] Lab Report: BMPon 09-06-2013 BUN/Creatinine Ratio 18.[address] RATIO Normal 10-[address] [facility] Work Phone: [phone] Lab Report: CBCDon 4 Absolute Neutrophil count 5.3 X10 3/UL Normal 2.0-7.7 [facility] Work Phone: [phone] ANC 5.3 X10 3/UL Normal 2.0-7.7 [facility] Work Phone: [phone] Office Visiton 08-27-2013 BNP 414.0 pg/mL [facility] Work Phone: Vital Signs Date Time Vital Sign Value Performing Clinician Chichi arriaza 12-09-2024 08:33-0400 Body mass index (BMI) [Ratio] 23.1 kg/m2 Dr. Jesus Taylor MD Work Phone: [facility] 12-09-2024 08:33-0400 Body weight 67.[address] Jesus Taylor MD Work Phone: [facility] 12-09-2024 08:33-0400 Diastolic blood pressure 75 mm[Hg] Dr. Jesus Taylor MD Work Phone: [facility] 12-09-2024 08:33-0400 Heart rate 74 /min Dr. Jesus Taylor MD Work Phone: [facility] 12-09-2024 08:33-0400 Respiratory rate 16 /min Dr. Jesus Taylor MD Work Phone: [facility] 12-09-2024 08:33-0400 Systolic blood pressure 129 mm[Hg] Dr. Jesus Taylor MD Work Phone: [facility] 11-01-2024 11:22-0400 Diastolic blood pressure 72 mm[Hg] Fritz Pope MD Work Phone: [facility] 11-01-2024 11:22-0400 Heart rate 76 /min Fritz Pope MD Work Phone: [facility] 11-01-2024 11:22-0400 Respiratory rate 16 /min Fritz Pope MD Work Phone: [facility] 11-01-2024 11:22-0400 SaO2% (BldA) [Mass fraction] 96 % Fritz Pope MD Work Phone: [facility] 11-01-2024 11:22-0400 Systolic blood pressure 159 mm[Hg] Fritz Pope MD Work Phone: [facility] 11-01-2024 10:08-0400 Body mass index (BMI) [Ratio] 24.13 kg/m2 Fritz Pope MD Work Phone: [facility] 11-01-2024 10:08-0400 Body temperature 97.2 [degF] Fritz Pope MD Work Phone: [facility] 11-01-2024 10:08-0400 Body weight 67.8 kg Fritz Pope MD Work Phone: [facility] 10-05-2024 10:41-0400 Body mass index (BMI) [Ratio] 24.11 kg/m2 Pennie Saroj GAUGE AND INSTRUMENT INSPECTOR.SHIPYARD PAINTER Work Phone: [facility] 10-05-2024 10:41-0400 Body weight 67.77 kg Pennie Saroj GAUGE AND INSTRUMENT INSPECTOR.SHIPYARD PAINTER Work Phone: [facility] 10-05-2024 10:41-0400 Diastolic blood pressure 71 mm[Hg] Pennie Saroj GAUGE AND INSTRUMENT INSPECTOR.SHIPYARD PAINTER Work Phone: [facility] 10-05-2024 10:41-0400 Heart rate 75 /min Pennie Saroj GAUGE AND INSTRUMENT INSPECTOR.SHIPYARD PAINTER Work Phone: [facility] 10-05-2024 10:41-0400 Respiratory rate 16 /min Pennie Saroj GAUGE AND INSTRUMENT INSPECTOR.SHIPYARD PAINTER Work Phone: [facility] 10-05-2024 10:41-0400 SaO2% (BldA) [Mass fraction] 98 % Pennie Saroj GAUGE AND INSTRUMENT INSPECTOR.SHIPYARD PAINTER Work Phone: [facility] 10-05-2024 10:41-0400 Systolic blood pressure 154 mm[Hg] Pennie Saroj GAUGE AND INSTRUMENT INSPECTOR.SHIPYARD PAINTER Work Phone: [facility] 10-05-2024 09:01-0400 Body mass index (BMI) [Ratio] 23.84 kg/m2 Jesus Taylor MD Work Phone: [facility] 10-05-2024 09:01-0400 Body weight 67 kg Jesus Taylor MD Work Phone: [facility] 10-05-2024 09:01-0400 Diastolic blood pressure 68 mm[Hg] Jesus Taylor MD Work Phone: [facility] 10-05-2024 09:01-0400 Heart rate 72 /min Jesus Taylor MD Work Phone: [facility] 10-05-2024 09:01-0400 Respiratory rate 18 /min Jesus Taylor MD Work Phone: [facility] 10-05-2024 09:01-0400 Systolic blood pressure 118 mm[Hg] Jesus Taylor MD Work Phone: [facility] 07-21-2024 09:02-0500 Body height 167.6 cm Winifred Vallejo MD Work Phone: [facility] 07-21-2024 09:02-0500 Body mass index (BMI) [Ratio] 23.08 kg/m2 Winifred Vallejo MD Work Phone: [facility] 07-21-2024 09:02-0500 Body weight 64.86 kg Winifred Vallejo MD Work Phone: [facility] 07-21-2024 09:02-0500 Diastolic blood pressure 62 mm[Hg] Winifred Vallejo MD Work Phone: [facility] 07-21-2024 09:02-0500 Heart rate 84 /min Winifred Vallejo MD Work Phone: [facility] 07-21-2024 09:02-0500 SaO2% (BldA) [Mass fraction] 98 % Winifred Vallejo MD Work Phone: [facility] 07-21-2024 09:02-0500 Systolic blood pressure 112 mm[Hg] Winifred Vallejo MD Work Phone: [facility] 07-08-2024 09:41-0500 Body mass index (BMI) [Ratio] 23.77 kg/m2 Codie Mann APRN.CNP Work Phone: [facility] 07-08-2024 09:41-0500 Body weight 66.8 kg Codie Tannhof GAUGE AND INSTRUMENT INSPECTOR.SHIPYARD PAINTER Work Phone: [facility] 07-08-2024 09:41-0500 Diastolic blood pressure 60 mm[Hg] Codie Solimanhof GAUGE AND INSTRUMENT INSPECTOR.SHIPYARD PAINTER Work Phone: [facility] 07-08-2024 09:41-0500 Heart rate 74 /min Codie Solimanhof GAUGE AND INSTRUMENT INSPECTOR.SHIPYARD PAINTER Work Phone: [facility] 07-08-2024 09:41-0500 Respiratory rate 16 /min Codie Solimanhof GAUGE AND INSTRUMENT INSPECTOR.SHIPYARD PAINTER Work Phone: [facility] 07-08-2024 09:41-0500 SaO2% (BldA) [Mass fraction] 98 % Codie Solimanhof GAUGE AND INSTRUMENT INSPECTOR.SHIPYARD PAINTER Work Phone: [facility] 07-08-2024 09:41-0500 Systolic blood pressure 110 mm[Hg] Codie Solimanhof GAUGE AND INSTRUMENT INSPECTOR.SHIPYARD PAINTER Work Phone: [facility] 06-18-2024 08:34-0500 Body mass index (BMI) [Ratio] 23.77 kg/m2 Jesus Taylor MD Work Phone: [facility] 06-18-2024 08:34-0500 Body weight 66.8 kg Jesus Taylor MD Work Phone: [facility] 06-18-2024 08:34-0500 Diastolic blood pressure 60 mm[Hg] Jesus Taylor MD Work Phone: [facility] 06-18-2024 08:34-0500 Heart rate 74 /min Jesus Taylor MD Work Phone: [facility] 06-18-2024 08:34-0500 Respiratory rate 16 /min Jesus Taylor MD Work Phone: [facility] 06-18-2024 08:34-0500 SaO2% (BldA) [Mass fraction] 96 % Jesus Taylor MD Work Phone: [facility] 06-18-2024 08:34-0500 Systolic blood pressure 126 mm[Hg] Jesus Taylor MD Work Phone: [facility] 04-06-2024 08:06-0500 Body mass index (BMI) [Ratio] 22.92 kg/m2 Jesus Taylor MD Work Phone: [facility] 04-06-2024 08:06-0500 Body weight 64.4 kg Jesus Taylor MD Work Phone: [facility] 04-06-2024 08:06-0500 Diastolic blood pressure 68 mm[Hg] Jesus Taylor MD Work Phone: [facility] 04-06-2024 08:06-0500 Heart rate 76 /min Jesus Taylor MD Work Phone: [facility] 04-06-2024 08:06-0500 Respiratory rate 18 /min Jesus Taylor MD Work Phone: [facility] 04-06-2024 08:06-0500 Systolic blood pressure 124 mm[Hg] Jesus Taylor MD Work Phone: [facility] 02-24-2024 13:29-0400 Body height 167.6 cm Lalita Perkins GAUGE AND INSTRUMENT INSPECTOR.SHIPYARD PAINTER Work Phone: [facility] 02-24-2024 13:29-0400 Body mass index (BMI) [Ratio] 22.27 kg/m2 Lalita Perkins GAUGE AND INSTRUMENT INSPECTOR.SHIPYARD PAINTER Work Phone: [facility] 02-24-2024 13:29-0400 Body weight 62.6 kg Lalita Perkins GAUGE AND INSTRUMENT INSPECTOR.SHIPYARD PAINTER Work Phone: [facility] 02-24-2024 13:29-0400 Diastolic blood pressure 63 mm[Hg] Lalita Perkins GAUGE AND INSTRUMENT INSPECTOR.SHIPYARD PAINTER Work Phone: [facility] 02-24-2024 13:29-0400 Heart rate 71 /min Lalita Perkins GAUGE AND INSTRUMENT INSPECTOR.SHIPYARD PAINTER Work Phone: [facility] 02-24-2024 13:29-0400 Respiratory rate 16 /min Lalita Perkins GAUGE AND INSTRUMENT INSPECTOR.SHIPYARD PAINTER Work Phone: [facility] 02-24-2024 13:29-0400 SaO2% (BldA) [Mass fraction] 99 % Lalita Perkins GAUGE AND INSTRUMENT INSPECTOR.SHIPYARD PAINTER Work Phone: [facility] 02-24-2024 13:29-0400 Systolic blood pressure 113 mm[Hg] Lalita Perkins GAUGE AND INSTRUMENT INSPECTOR.SHIPYARD PAINTER Work Phone: [facility] 01-30-2024 14:24-0400 Body mass index (BMI) [Ratio] 22.44 kg/m2 Jesus Taylor MD Work Phone: [facility] 01-30-2024 14:24-0400 Body weight 65 kg Jesus Taylor MD Work Phone: [facility] 01-30-2024 14:24-0400 Diastolic blood pressure 62 mm[Hg] Jesus Taylor MD Work Phone: [facility] 01-30-2024 14:24-0400 Heart rate 74 /min Jesus Taylor MD Work Phone: [facility] 01-30-2024 14:24-0400 Respiratory rate 16 /min Jesus Taylor MD Work Phone: [facility] 01-30-2024 14:24-0400 SaO2% (BldA) [Mass fraction] 95 % Jesus Taylor MD Work Phone: [facility] 01-30-2024 14:24-0400 Systolic blood pressure 104 mm[Hg] Jesus Taylor MD Work Phone: [facility] 01-12-2024 08:40-0400 Diastolic blood pressure 77 mm[Hg] Ip Echo [facility] 01-12-2024 08:40-0400 Heart rate 89 /min I[facility] 01-12-2024 08:40-0400 SaO2% (BldA) [Mass fraction] 96 % Ip [facility] 01-12-2024 08:40-0400 Systolic blood pressure 115 mm[Hg] Ip [facility] 01-12-2024 08:12-0400 Respiratory rate 16 /min Ip Echo [facility] 01-12-2024 07:39-0400 Body temperature 97.5 [degF] Ip Echo [facility] 01-05-2024 19:13-0400 Body mass index (BMI) [Ratio] 24.1 kg/m2 Jesus Taylor MD Work Phone: [facility] 01-05-2024 19:13-0400 Body weight 65.6 kg Jesus Taylor MD Work Phone: [facility] 01-05-2024 19:13-0400 Diastolic blood pressure 62 mm[Hg] Jesus Taylor MD Work Phone: [facility] 01-05-2024 19:13-0400 Heart rate 80 /min Jesus Taylor MD Work Phone: [facility] 01-05-2024 19:13-0400 Respiratory rate 18 /min Jesus Taylor MD Work Phone: [facility] 01-05-2024 19:13-0400 SaO2% (BldA) [Mass fraction] 95 % Jesus Taylor MD Work Phone: [facility] 01-05-2024 19:13-0400 Systolic blood pressure 104 mm[Hg] Jesus Taylor MD Work Phone: [facility] 10-03-2023 08:54-0400 Body mass index (BMI) [Ratio] 24.69 kg/m2 Jesus Taylor MD Work Phone: [facility] 10-03-2023 08:54-0400 Body weight 67.22 kg Jesus Taylor MD Work Phone: [facility] 10-03-2023 08:54-0400 Diastolic blood pressure 72 mm[Hg] Jesus Taylor MD Work Phone: [facility] 10-03-2023 08:54-0400 Heart rate 64 /min Jesus Taylor MD Work Phone: [facility] 10-03-2023 08:54-0400 Respiratory rate 16 /min Jesus Taylor MD Work Phone: [facility] 10-03-2023 08:54-0400 Systolic blood pressure 118 mm[Hg] Jesus Taylor MD Work Phone: [facility] 09-01-2023 08:21-0400 Body height 167.[address] Jesus Taylor Work Phone: [facility] 09-01-2023 08:21-0400 Body mass index (BMI) [Ratio] 24.3 kg/m2 Dr. Jesus Taylor Work Phone: [facility] 09-01-2023 08:21-0400 Body weight 68.[address] Jesus Taylor Work Phone: [facility] 09-01-2023 08:21-0400 Diastolic blood pressure 62 mm[Hg] Dr. Jesus Taylor Work Phone: [facility] 09-01-2023 08:21-0400 Heart rate 81 /min Dr. Jesus Taylor Work Phone: [facility] 09-01-2023 08:21-0400 Respiratory rate 18 /min Dr. Jesus Taylor Work Phone: [facility] 09-01-2023 08:21-0400 SaO2% (BldA) [Mass fraction] 97 % Dr. Jesus Taylor Work Phone: [facility] 09-01-2023 08:21-0400 Systolic blood pressure 110 mm[Hg] Dr. Jesus Taylor Work Phone: [facility] 04-29-2023 09:48-0500 Body weight 67.04 kg Jesus Taylor MD Work Phone: [facility] 04-29-2023 09:48-0500 Diastolic blood pressure 68 mm[Hg] Jesus Taylor MD Work Phone: [facility] 04-29-2023 09:48-0500 Heart rate 64 /min Jesus Taylor MD Work Phone: [facility] 04-29-2023 09:48-0500 Respiratory rate 16 /min Jesus Taylor MD Work Phone: [facility] 04-29-2023 09:48-0500 Systolic blood pressure 110 mm[Hg] Jesus Taylor MD Work Phone: [facility] 10-03-2022 08:05-0400 Body weight 66.95 kg Jesus Taylor MD Work Phone: [facility] 10-03-2022 08:05-0400 Diastolic blood pressure 62 mm[Hg] Jesus Taylor MD Work Phone: [facility] 10-03-2022 08:05-0400 Heart rate 60 /min Jesus Taylor MD Work Phone: [facility] 10-03-2022 08:05-0400 Respiratory rate 16 /min Jesus Taylor MD Work Phone: [facility] 10-03-2022 08:05-0400 Systolic blood pressure 108 mm[Hg] Jesus Taylor MD Work Phone: [facility] 04-01-2022 09:04-0500 Body weight 68.49 kg Jesus Taylor MD Work Phone: [facility] 04-01-2022 09:04-0500 Diastolic blood pressure 70 mm[Hg] Jesus Taylor MD Work Phone: [facility] 04-01-2022 09:04-0500 Heart rate 78 /min Jesus Taylor MD Work Phone: [facility] 04-01-2022 09:04-0500 Respiratory rate 16 /min Jesus Taylor MD Work Phone: [facility] 04-01-2022 09:04-0500 Systolic blood pressure 116 mm[Hg] Jesus Taylor MD Work Phone: [facility] 09-28-2021 09:21-0400 Body weight 67.41 kg Jesus Taylor MD Work Phone: [facility] 09-28-2021 09:21-0400 Diastolic blood pressure 70 mm[Hg] Jesus Taylor MD Work Phone: [facility] 09-28-2021 09:21-0400 Heart rate 80 /min Jesus Taylor MD Work Phone: [facility] 09-28-2021 09:21-0400 Respiratory rate 16 /min Jesus Taylor MD Work Phone: [facility] 09-28-2021 09:21-0400 Systolic blood pressure 110 mm[Hg] Jesus Taylor MD Work Phone: [facility] 12-12-2016 13:03-0400 BMI (Body Mass Index) 24.53 kg/m2 [place] [facility] Work Phone: 12-12-2016 13:03-0400 BP Diastolic 62 mm[Hg] Hermelindotaldanette Mays [facility] Work Phone: 12-12-2016 13:03-0400 BP Systolic 118 mm[Hg] Hermelindotaldanette Mays [facility] Work Phone: 12-12-2016 13:03-0400 Height 167.64 cm [place] Mays [facility] Work Phone: 12-12-2016 13:03-0400 Pulse (Heart Rate) 76 /min [place] Mays [facility] Work Phone: 12-12-2016 13:03-0400 Respiratory Rate 16 /min Hermelindotaldanette Mays [facility] Work Phone: 12-12-2016 13:03-0400 Weight 68.95 kg [place] Mays [facility] Work Phone: 06-05-2016 11:30-0500 BMI (Body Mass Index) 24.69 kg/m2 Caesar [facility] Work Phone: 06-05-2016 11:30-0500 BP Diastolic 60 mm[Hg] Harumi DeFinis [facility] Work Phone: 06-05-2016 11:30-0500 BP Systolic 110 mm[Hg] Harumi DeFinis [facility] Work Phone: 06-05-2016 11:30-0500 BSA (Body Surface Area) 1.79 m2 Harumi DeFinis [facility] Work Phone: 06-05-2016 11:30-0500 Pulse (Heart Rate) 74 /min [facility] Work Phone: 06-05-2016 11:30-0500 Weight 69.4 kg Caeasr Hurt [facility] Work Phone: 12-07-2015 13:03-0400 Respiratory Rate 12 /min Caesar Hurt [facility] Work Phone: 07-13-2015 08:19-0500 Heart rate 80 /min [place] [facility] Work Phone: 09-02-2013 14:27-0400 Body Temperature 98.1 [degF] [facility] Work Phone: 09-02-2013 14:27-0400 Height 167.64 cm Caesar Hurt [facility] Work Phone: Encounters Encounter Date Encounter Type Care Provider Facility Start: 03-22-2025 End: 03-22-2025 ambulatory [facility] Facility:[facility] Start: 03-17-2025 End: 03-17-2025 ambulatory [facility] Facility:[facility] Start: 03-08-2025 End: 03-08-[address] Schuyler Angel MD -[facility] Work Phone: Start: 03-08-2025 End: 03-08-2025 ambulatory [facility] Facility:[facility] Start: 02-07-2025 End: 02-07-[address] Jseus Taylor MD Work Phone: [facility] Start: 02-07-2025 End: 02-07-[address] Schuyler Angel MD -[facility] Work Phone: Start: 12-09-2024 End: 12-09-2024 Patient encounter procedure Shantel FENTON -[facility] Work Phone: Start: 12-09-2024 End: 12-09-[address] Jesus Taylor MD Work Phone: [facility] Start: 11-12-2024 End: 11-12-[address] Jesus Taylor MD Work Phone: [facility] Work Phone: Start: 11-12-2024 End: 11-12-2024 Patient encounter procedure Irene Perry [facility] Work Phone: Start: 11-12-2024 End: 11-12-2024 ambulatory [facility] Facility:[facility] Start: 11-09-2024 End: 11-09-[address] Jesus Taylor MD Work Phone: [facility] Start: 11-09-2024 End: 11-09-[address] Schuyler Angel MD -[facility] Work Phone: Start: 11-08-2024 End: 11-08-2024 Patient encounter procedure Pennie Ruelas APRN.SHIPYARD PAINTER Work Phone: General Surgery Comment on above: Multiple adenomatous polyps (Primary Dx) Start: 11-08-2024 End: 11-08-2024 ambulatory [facility] Facility:[facility] Start: 11-01-2024 End: 01-01-2025 Follow-up encounter Pennie Ruelas APRN.SHIPYARD PAINTER Work Phone: General Surgery Start: 11-01-2024 ambulatory FRITZ Gamble ty:[facility] Start: 11-01-2024 End: 11-01-2024 Subsequent hospital visit by physician Fritz Pope MD Work Phone: Ambulatory Surgery Comment on above: Screening for colon cancer [Z12.11] Start: 10-05-2024 End: 10-05-2024 ambulatory [facility] Facility:[facility] Start: 10-05-2024 End: 10-05-2024 Patient encounter procedure Pennie Ruelas APRN.SHIPYARD PAINTER Work Phone: General Surgery Comment on above: Family history of co amalia cancer in father (Primary Dx); Screening for colon cancer; History of colonic polyps Start: 10-05-2024 End: 10-05-2024 Office outpatient visit 25 minutes [facility] Comment on above: Acquired hypothyroid ism (Primary Dx); Drug-induced osteoporosis; Hypertensive heart disease with heart failure (HCC); Complete heart block (HCC); H/O mitral valve replacement; Pacemaker; Screening for depression; Encounter for screening examination for other mental health and behavioral disorders; Screening for colon cancer Start: 10-05-2024 End: 10-05-2024 ambulatory [facility] Facility:[facility] Start: 10-01-2024 End: 10-01-2024 ambulatory [facility] Facility:[facility] Start: 08-30-2024 End: 08-30-2024 Telephone encounter Codie Mann APRN.SHIPYARD PAINTER Work Phone: [facility] Comment on above: Consult Start: 08-10-2024 End: 08-10-2024 ambulatory Schuyler Angel Facility:[facility] Start: 08-10-2024 End: 08-10-[address] Schuyler Angel MD -[facility] Work Phone: Start: 08-04-2024 End: 08-04-2024 Refill Jesus Taylor MD Work Phone: [address] [place] [address] Comment on above: Refill Request Start: 07-21-2024 End: 07-21-2024 Patient encounter procedure Winifred Vallejo MD Work Phone: Cardiology Comment on above: S/P MVR (mitral valv e replacement) (Primary Dx); CHB (complete heart block) (HCC) Start: 07-21-2024 End: 07-21-2024 ambulatory WINIFRED VALLEJO Facility:[facility] Start: 07-08-2024 End: 07-08-2024 Office outpatient visit 25 minutes Codie Mann APRN.SHIPYARD PAINTER Work Phone: [facility] Comment on above: Contact dermatitis, unspecified contact dermatitis type, unspecified trigger (Primary Dx); Follicular eczema; Cellulitis of skin Start: 07-08-2024 End: 07-08-2024 ambulatory JESUS Khan [facility] Facility:[facility] Start: 06-18-2024 End: 06-18-2024 ambulatory [facility] Facility:[facility] Start: 06-18-2024 End: 06-18-2024 Patient encounter procedure Jesus Taylor MD Work Phone: [facility] Comment on above: Cellulitis of skin ( Primary Dx); Hypertensive heart disease with heart failure (HCC); Complete heart block (HCC) Start: 06-08-2024 End: 06-08-2024 ambulatory [facility] Facility:[facility] Start: 05-27-2024 ambulatory [facility] Start: 05-27-2024 End: 05-27-2024 ambulatory Shantel FENTON Facility:[facility] Start: 05-11-2024 End: 05-11-2024 ambulatory [facility] Facility:[facility] Start: 04-06-2024 End: 04-06-2024 ambulatory [facility] Facility:[facility] Start: 04-06-2024 End: 04-06-2024 Patient encounter procedure Jesus Taylor MD Work Phone: [facility] Comment on above: Acquired hypothyroid ism (Primary Dx); Drug-induced osteoporosis; H/O mitral valve replacement; Pacemaker; Encounter for immunization Start: 04-02-2024 End: 04-02-2024 ambulatory [place]US [place] Facility[place] Start: 04-01-2024 End: 04-01-2024 ambulatory Codie King RN [facility] Start: 04-01-2024 End: 04-01-2024 Patient encounter procedure Codie King RN [facility] Start: 03-31-2024 End: 03-31-2024 ambulatory Codie King RN [facility] Start: 03-31-2024 End: 03-31-2024 Patient encounter procedure Codie King RN [facility] Start: 02-24-2024 End: 02-24-2024 Patient encounter procedure Lalita Perkins APRN.SHIPYARD PAINTER Work Phone: Cardiology Comment on above: Essential hypertensi on (Primary Dx); Mixed hyperlipidemia; S/P transcatheter mitral valve replacement (TMVR); Pacemaker; Complete heart block (HCC) Start: 02-24-2024 End: 02-24-2024 Subsequent hospital visit by physician [facility] Work Phone: Cardiology Comment on above: Pacemaker reprogramm ing/check [Z45.018] Start: 02-12-2024 End: 02-12-2024 Telephone encounter Jesus Taylor MD Work Phone: NOC Comment on above: Transition Of Care Start: 02-05-2024 End: 02-05-2024 Telephone encounter Esteban Triplett MD Work Phone: Cardiology Comment on above: Courtesy call (Devic e survey) Start: 01-30-2024 End: 01-30-2024 Patient encounter procedure Jesus Taylor MD Work Phone: [facility] Comment on above: Hospital discharge f ollow-up (Primary Dx); Pacemaker; H/O mitral valve replacement Start: 01-28-2024 End: 01-28-2024 Telephone encounter Belle Helms RN NOC Comment on above: Follow Up Phone Call (Relate care discharge follow up-1st attempt-no contact-left vm) Start: 01-27-2024 End: 01-27-2024 Patient Outreach Christiano Conner [facility] Work Phone: Pharmacy Comment on above: Transition Of Care ( [facility] Pharmacy-Hospital discharge 01/23/24 ) Transition Of Care Start: 01-16-2024 End: 01-16-2024 ambulatory Shima Tadeo APRN.SHIPYARD PAINTER, DNP Work Phone: Cardiology Start: 01-13-2024 End: 01-13-2024 Evaluation and management of inpatient Gloria White DDS Work Phone: Dentistry Comment on above: History of mitral va lve replacement with bioprosthetic valve (Primary Dx); Pre-operative clearance; Prosthetic mitral valve failure requiring replacement Start: 01-13-2024 End: 01-13-2024 Preoperative state Gloria White DDS Work Phone: [facility] Start: 01-12-2024 End: 01-12-2024 Evaluation and management of inpatient Ip Transesophageal Echo Cardiology Comment on above: History of mitral va lve replacement with bioprosthetic valve (Primary Dx) Start: 01-05-2024 End: 01-05-2024 Patient encounter procedure Jesus Taylor MD Work Phone: [facility] Comment on above: Hospital discharge f ollow-up (Primary Dx); Acute exacerbation of chronic heart failure (HCC); H/O mitral valve replacement Start: 10-03-2023 End: 10-03-2023 Patient encounter procedure Jesus Taylor MD Work Phone: [facility] Comment on above: Acquired hypothyroid ism (Primary Dx); Pulmonary hypertension (HCC); H/O mitral valve replacement; Rheumatic heart disease; Chronic constipation; Drug-induced osteoporosis Start: 09-01-2023 End: 09-01-[address] Jesus Taylor Work Phone: [facility] Work Phone: Start: 09-01-2023 End: 09-01-[address] Jesus Taylor Work Phone: [facility] Work Phone: Start: 08-04-2023 Refill Jesus hauser MD Work Phone: [facility] Comment on above: Refill Request Start: 07-31-2023 Non-patient / Non-visit Dr. Anupam Taylor Work Phone: [facility] Start: 07-31-2023 End: 07-31-[address] Jesus Taylor Work Phone: [facility] Work Phone: Start: 07-31-2023 End: 07-31-[address] Jesus Taylor Work Phone: [facility] Work Phone: Start: 04-29-2023 End: 04-29-2023 Patient encounter procedure Jesus Taylor MD Work Phone: [facility] Comment on above: Pulmonary hypertensi on (HCC) (Primary Dx); Chronic constipation; Rheumatic heart disease; H/O mitral valve replacement; Acquired hypothyroidism; Need for influenza vaccination Start: 10-03-2022 End: 10-03-2022 Patient encounter procedure Jesus Taylor MD Work Phone: [facility] Comment on above: Acquired hypothyroid ism (Primary Dx); Chronic constipation; H/O mitral valve replacement; Pulmonary hypertension (HCC) Start: 08-15-2022 Refill Jesus hauser MD Work Phone: [facility] Comment on above: Refill Request Start: 07-01-2022 Telephone encounter Jesus mcgill MD Work Phone: [facility] Comment on above: Referral Request Start: 04-01-2022 End: 04-01-2022 Patient encounter procedure Jesus Taylor MD Work Phone: [facility] Comment on above: Acquired hypothyroid ism (Primary Dx); Need for influenza vaccination; Chronic constipation Start: 03-14-2022 Non-patient / Non-visit Dr. Anupam Taylor Work Phone: [facility] Start: 03-14-2022 End: 03-14-[address] Jesus Taylor Work Phone: [facility] Work Phone: Start: 03-14-2022 End: 03-14-[address] Jesus Taylor Work Phone: [facility] Start: 09-28-2021 End: 09-28-2021 Patient encounter procedure Jesus Taylor MD Work Phone: [facility] Comment on above: Acquired hypothyroid ism (Primary Dx); H/O mitral valve replacement; Chronic constipation Start: 08-30-2021 Refill Jesus hauser MD Work Phone: [facility] Comment on above: Refill Request Start: 10-19-2013 End: 10-23-2013 Patient encounter status Jesus Taylor MD Work Phone: [facility] Procedures Date Procedure Procedure Detail Performing Clinician Start: 11-12-[address] Jesus Taylor MD Work Phone: Start: 11-12-[address] Kristin Taylor MD Work Phone: Comment on above: Negative <1:80 Borde rline 1:80 Positive >1:80ICAP nomenclature: AC-0For more information about Hep-2 cell patterns useANApatterns.org, the official website for theInternational Consensus on Antinuclear Antibody (MICHAEL)Patterns (ICAP).Performed at: [place] [id number] Director: Taye Nguyen PhD, Phone: [phone] Start: 11-12-2024 Electrophoresis: [id number] Dr. Jesus Taylor MD Work Phone: Start: 11-12-2024 Electrophoresis: [id number] Dr. Jesus Taylor MD Work Phone: Start: 11-12-2024 Electrophoresis: nash ma globulin Dr. Jesus Taylor MD Work Phone: Start: 11-12-2024 Hepatitis C antibody measurement Dr. Jesus Taylor MD Work Phone: Comment on above: Reactive: Presumptiv e evidence of antibodies to HCV. Follow CDC recommendations for supplemental testing.Non-Reactive: Antibodies to HCV were not detected; does not exclude the possibility of exposure to HCVReactive Results are presumptive evidence of antibodies to HCV. Follow CDC recommendations for supplemental testing.Order confirmation testing: HCV Quant by PCR testing - HCVPCR #[id number] Non Reactive: < 0.8 Equivocal: >/= 0.8 to < 1.0 Reactive: >/= 1.0The CDC requires that a reactive/equivocal HCV antibody result be sent out for confirmation. HCV Quant by PCR testing. Start: 11-12-2024 Urnls dip stick/tabl et reagent auto microscopy Dr. Jesus Taylor MD Work Phone: Start: 11-01-2024 Colonoscopy flx dx w /collj spec when pfrmd Pennie Saroj GAUGE AND INSTRUMENT INSPECTOR.SHIPYARD PAINTER Work Phone: Start: 10-05-2024 Adult depression scr eening assessment Jesus Taylor MD Work Phone: Start: 02-24-2024 Prgrmg dev eval implantable subq lead dfb system [facility] Provider Start: 01-13-2024 [employer] [facility] Co nversion Start: 10-03-2023 Adult depression scr eening assessment Jesus Taylor MD Work Phone: Start: 04-29-2023 INFLUENZA VACCINE, P RSV FREE, AGE 65+ YR, HIGH DOSE, QUADRIVALENT (FLUZONE HIGH-DOSE) Jesus Taylor MD Work Phone: Start: 04-01-2022 INFLUENZA SEASONAL QUADRIVALENT HIGH DOSE AGE 65+ Jesus Taylor MD Work Phone: Start: 12-12-2016 End: 12-12-2016 Follow Up Appt 6 months Caleb Tarango MD Start: 12-12-2016 End: 12-12-2016 MMKacey Tarango MD Start: 06-05-2016 End: 06-05-2016 Follow Up Appt 6 months Shantel Shepard PA-C Work Phone: Start: 06-05-2016 End: 06-05-2016 PFM Shantel Shepard PA-C Work Phone: Start: 12-07-2015 End: 12-07-2015 Follow Up Appt 6 months Caleb Taragno MD Start: 12-07-2015 End: 12-07-2015 MMKacey Tarango MD Start: 07-13-2015 End: 07-17-2015 *CBC with Differential Shantel Shepard PA-C Work Phone: Start: 07-13-2015 End: 07-13-2015 Electrocardiogram, complete Shantel Shepard PA-C Work Phone: Start: 07-13-2015 End: 07-17-2015 Erythrocyte sedimentation rate Shantel Shepard PA-C Work Phone: Start: 07-13-2015 End: 07-13-2015 Follow Up Appt 6 months Shantel Shepard PA-C Work Phone: Start: 07-13-2015 End: 07-13-2015 PFM Shantel Shepard PA-C Work Phone: Start: 07-13-2015 Replacement of danie l valve Mitral valve replacement Savanahdanette Davon Start: 12-26-2014 End: 12-27-2014 Documentation of current medications Caleb Tarango MD Start: 12-26-2014 End: 12-26-2014 Follow Up Appt 6 months Caleb Tarango MD Start: 12-26-2014 End: 12-26-2014 MMM Caleb Tarango MD Start: 06-07-2014 End: 07-07-2015 Electrocardiogram, complete Shantel Shepard PA-C Work Phone: Start: 05-31-2014 End: 07-07-2015 Echocardiography Shantel Shepard PA-C Work Phone: Start: 05-31-2014 End: 07-07-2015 Electrocardiogram, complete Shantel Shepard PA-C Work Phone: Start: 05-31-2014 End: 05-31-2014 Follow Up Appt 6 months Shantel Shepard PA-C Work Phone: Start: 05-31-2014 End: 05-31-2014 Follow Up Appt Other Shantel Shepard PA-C Work Phone: Start: 05-31-2014 End: 05-31-2014 PFM Shantel Shepard PA-C Work Phone: Start: 02-08-2014 End: 02-08-2014 Follow Up Appt 3 months Shantel Shepard PA-C Work Phone: Start: 02-08-2014 End: 02-08-2014 PFM Shantel Shepard PA-C Work Phone: Start: 12-01-2013 End: 01-25-2014 Follow Up Appt Other Shantel Shepard PA-C Work Phone: Start: 11-05-2013 End: 01-25-2014 Cardiac Rehab Caleb Tarango MD Start: 11-05-2013 End: 01-25-2014 Cardiovascular stress test using treadmill Caleb Tarango MD Start: 11-05-2013 End: 11-05-2013 Electrocardiogram, complete Caleb Tarango MD Start: 11-05-2013 End: 11-05-2013 Follow Up Appt 3 months Caleb Tarango MD Start: 11-05-2013 End: 11-05-2013 MM Caleb Tarango MD Start: 11-02-2013 H/O: artificial hear t valve History of mitral valve replacement with bioprosthetic valve Ip Echo Start: 10-26-2013 End: 10-29-2013 Coagulation factor induced.INR assay in platelet poor plasma Caleb Tarango MD Start: 09-23-2013 H/O: artificial hear t valve History of mitral valve replacement with bioprosthetic valve Comment on above: 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 @ [facility] 10/20/2013 Start: 09-15-2013 End: 01-25-2014 Cardiac Referral Caleb Tarango MD Start: 09-02-2013 End: 09-06-2013 *BMP Caleb Tarango MD Start: 09-02-2013 End: 09-06-2013 *CBC with Differential Caleb Tarango MD Start: 09-02-2013 End: 09-06-2013 aPTT Caleb Tarango MD Start: 09-02-2013 End: 09-09-2013 Chest x-ray Caleb Tarango MD Start: 09-02-2013 End: 09-06-2013 Coagulation factor induced.INR assay in platelet poor plasma Caleb Tarango MD Start: 09-02-2013 End: 09-02-2013 Electrocardiogram, complete Caleb Tarango MD Start: 09-02-2013 End: 09-02-2013 Follow Up Appt 3 months Caleb Tarango MD Start: 09-02-2013 End: 01-25-2014 Left & Right Heart Cath Caleb Tarango MD Start: 09-02-2013 End: 09-02-2013 MMM Caleb Tarango MD H/O: artificial hear t valve History of mitral valve replacement with bioprosthetic valve Ip Echo H/O: artificial hear t valve History of mitral valve replacement with bioprosthetic valve Gloria White DDS Work Phone: Plan of Treatment Date Care Activity Detail Author Start: 10-02-2027 Diabetes Screening Diabetes Screenin g [facility] Start: 04-02-2027 Diabetes Screening Diabetes Screenin g [facility] Start: 01-22-2027 Diabetes Screening Diabetes Screenin g [facility] Start: 01-10-2027 Diabetes Screening Diabetes Screenin g [facility] Start: 09-19-2026 Diabetes Screening Diabetes Screenin g [facility] Start: 04-28-2026 Diabetes Screening Diabetes Screenin g [facility] Start: 10-05-2025 Anxiety Screening Anxiety Screening [facility] Start: 10-05-2025 Depression Screening Depression Scre ening [facility] Start: 10-05-2025 Shingrix Vaccine (2 of 3) Sanchez grix Vaccine (2 of 3) [facility] Comment on above: Postponed from 10/14 (Declined at this time) Start: 05-02-2025 Urine microalbumin profile [facility] Start: 04-07-2025 End: 07-07-2025 CBC W Auto Differential panel - Blood COMPLETE BLOOD COUNT AND DIFFERENTIAL Lab Routine Acquired hypothyroidism Hypertensive heart disease with heart failure (HCC) Complete heart block (HCC) Expected: 04/07/2025 (Approximate), Expires: 07/07/2025 [facility] Comment on above: Expected: 04/07/2025 (Approximate), Expires: 07/07/2025 Start: 04-07-2025 End: 07-07-2025 Comprehensive metabolic 2000 panel - Serum or Plasma COMPREHENSIVE METABOLIC PANEL Lab Routine Hypertensive heart disease with heart failure (HCC) Complete heart block (HCC) H/O mitral valve replacement Expected: 04/07/2025 (Approximate), Expires: 07/07/2025 [facility] Work Phone: Comment on above: Expected: 04/07/2025 (Approximate), Expires: 07/07/2025 Start: 04-07-2025 End: 07-07-2025 Thyrotropin [Units/volume] in Serum or Plasma THYROID STIMULATING HORMONE Lab Routine Acquired hypothyroidism Expected: 04/07/2025 (Approximate), Expires: 07/07/2025 [facility] Comment on above: Expected: 04/07/2025 (Approximate), Expires: 07/07/2025 Start: 04-06-2025 Covid-19 Vaccine ( season) Covid-19 Vaccine ( season) [facility] Comment on above: Postponed from 01/24 (Declined at this time) Start: 04-06-2025 RSV Vaccine (1 - 1-d ose 75+ series) RSV Vaccine (1 - 1-dose 75+ series) [facility] Comment on above: Postponed from 12/15 (Declined at this time) Start: 03-22-2025 End: 03-22-2025 Patient encounter procedure 03/22/2025 9:40 AM EDT Office Visit [facility] [address] [place] [address] Jesus Taylor MD [address] [place] [address] 6 mo f/u [facility] Comment on above: 6 mo f/u Start: 01-24-2025 Influenza vaccination Influenza Vacc ine (#1) [facility] Start: 11-08-2024 End: 11-08-2024 Patient encounter procedure 11/08/2024 9:00 AM EDT Office Visit General Surgery [address] [place] [address] Pennie Ruelas APRN.SHIPYARD PAINTER [address] [place] [address] FU: Colonoscopy with path 11/01/2024 [facility] General Surgery Comment on above: FU: Colonoscopy with path 11/01/2024 [facility] Start: 11-01-2024 End: 11-01-2024 Patient encounter procedure 11/01/2024 10:15 AM EDT Appointment Ambulatory Surgery [address] [place] [address] Fritz Pope MD [address] [place] [address] Screening for colon cancer [Z12.11]; Family history of colon cancer in father [Z80.0]; History of colonic polyps [Z86.0100] Ambulatory Surgery Comment on above: Screening for colon cancer [Z12.11]; Family history of colon cancer in father [Z80.0]; History of colonic polyps [Z86.0100] Start: 10-05-2024 End: 10-05-2024 Patient encounter procedure 10/05/2024 9:00 AM EDT Office Visit Family [facility] [address] [place] [address] Jesus Taylor MD [address] [place] [address] 6 mo f/u [facility] Comment on above: 6 mo f/u Start: 10-04-2024 End: 01-03-2025 CBC W Auto Differential panel - Blood COMPLETE BLOOD COUNT AND DIFFERENTIAL Lab Routine Drug-induced osteoporosis Expected: 10/04/2024 (Approximate), Expires: 01/03/2025 [facility] Comment on above: Expected: 10/04/2024 (Approximate), Expires: 01/03/2025 Start: 10-04-2024 End: 01-03-2025 Comprehensive metabolic 2000 panel - Serum or Plasma COMPREHENSIVE METABOLIC PANEL Lab Routine Drug-induced osteoporosis Expected: 10/04/2024 (Approximate), Expires: 01/03/2025 [facility] Work Phone: Comment on above: Expected: 10/04/2024 (Approximate), Expires: 01/03/2025 Start: 10-04-2024 End: 01-03-2025 Thyrotropin [Units/volume] in Serum or Plasma THYROID STIMULATING HORMONE Lab Routine Acquired hypothyroidism Expected: 10/04/2024 (Approximate), Expires: 01/03/2025 [facility] Comment on above: Expected: 10/04/2024 (Approximate), Expires: 01/03/2025 Start: 10-02-2024 Anxiety Screening Anxiety Screening [facility] Start: 10-02-2024 Covid-19 Vaccine () Covid-19 Vaccine () [facility] Comment on above: Postponed from 01/24 (Declined at this time) Start: 10-02-2024 Depression Screening Depression Scre ening [facility] Start: 07-16-2024 End: 07-16-2024 ambulatory 07/16/2024 10:45 AM EST Results Only Cardiology [address] [place] [address] Essential hypertension Cardiology Comment on above: Essential hypertensi on Start: 07-16-2024 End: 07-16-2024 Patient encounter procedure Cardiology Comment on above: Essential hypertensi on Start: 05-26-2024 Advance Directive Discussion Advance Directive Discussion [facility] Start: 05-26-2024 Medicare Advantage A nnual Wellness Visit Medicare Advantage Annual Wellness Visit [facility] Start: 04-06-2024 End: 04-06-2024 Patient encounter procedure 04/06/2024 8:00 AM EST Office Visit [facility] [address] [place] [address] Jesus Taylor MD [address] [place] [address] 6 month follow up TSH [facility] Comment on above: 6 month follow up TS [facility] Start: 04-04-2024 End: 07-04-2024 CBC W Auto Differential panel - Blood COMPLETE BLOOD COUNT AND DIFFERENTIAL Lab Routine Drug-induced osteoporosis Expected: 04/04/2024 (Approximate), Expires: 07/04/2024 [facility] Comment on above: Expected: 04/04/2024 (Approximate), Expires: 07/04/2024 Start: 04-04-2024 End: 07-04-2024 Comprehensive metabolic 2000 panel - Serum or Plasma COMPREHENSIVE METABOLIC PANEL Lab Routine Drug-induced osteoporosis Expected: 04/04/2024 (Approximate), Expires: 07/04/2024 [facility] Work Phone: Comment on above: Expected: 04/04/2024 (Approximate), Expires: 07/04/2024 Start: 04-04-2024 End: 07-04-2024 Thyrotropin [Units/volume] in Serum or Plasma THYROID STIMULATING HORMONE Lab Routine Acquired hypothyroidism Expected: 04/04/2024 (Approximate), Expires: 07/04/2024 [facility] Comment on above: Expected: 04/04/2024 (Approximate), Expires: 07/04/2024 Start: 03-13-2024 DIABETES SCREEN DIABETES SCREEN [facility] Start: 03-04-2024 End: 03-04-2024 Patient encounter procedure 03/04/2024 2:15 PM EDT Appointment Cardiology [address] [place] [address] OUTPATIENT 4-6 WEEK DEVICE CHECK (PACEMAKER) Cardiology Comment on above: OUTPATIENT 4-6 WE EK DEVICE CHECK (PACEMAKER) Start: 02-24-2024 End: 05-25-2024 CBC panel - Blood by Automated count COMPLETE BLOOD COUNT Lab Routine Essential hypertension Mixed hyperlipidemia S/P transcatheter mitral valve replacement (TMVR) Expected: 02/24/2024, Expires: 05/25/2024 [facility] Comment on above: Expected: 02/24/2024 , Expires: 05/25/2024 Start: 02-24-2024 End: 05-25-2024 Comprehensive metabolic 2000 panel - Serum or Plasma COMPREHENSIVE METABOLIC PANEL Lab Routine Essential hypertension Mixed hyperlipidemia S/P transcatheter mitral valve replacement (TMVR) Expected: 02/24/2024, Expires: 05/25/2024 [facility] Comment on above: Expected: 02/24/2024 , Expires: 05/25/2024 Start: 02-24-2024 End: 05-25-2024 Hemoglobin A1c in Blood HEMOGLOBIN A1C Lab Routine Essential hypertension Mixed hyperlipidemia S/P transcatheter mitral valve replacement (TMVR) Expected: 02/24/2024, Expires: 05/25/2024 [facility] Comment on above: Expected: 02/24/2024 , Expires: 05/25/2024 Start: 02-24-2024 End: 05-25-2024 Lipid 1996 panel - Serum or Plasma LIPID PANEL BASIC Lab Routine Essential hypertension Mixed hyperlipidemia S/P transcatheter mitral valve replacement (TMVR) Expected: 02/24/2024, Expires: 05/25/2024 [facility] Comment on above: Expected: 02/24/2024 , Expires: 05/25/2024 Start: 02-24-2024 End: 02-24-2024 Patient encounter procedure Cardiology Comment on above: Transcatheter Valve in Valve OUTPATIENT 4-6 WE EK DEVICE CHECK (PACEMAKER) Start: 01-30-2024 End: 01-30-2024 Patient encounter procedure 01/30/2024 2:20 PM EDT [facility] [address] [place], [place] [id number] Jesus Taylor MD [address] [place], [place] [id number] Hospital f/u [facility] Comment on above: Hospital f/u Start: 01-25-2024 Covid-19 Vaccine () Covid-19 Vaccine () [facility] Start: 01-25-2024 Covid-19 Vaccine ( season) Covid-19 Vaccine ( season) [facility] Start: 01-25-2024 Influenza vaccination Influenza Vacc ine (#1) [facility] Start: 01-20-2024 End: 01-20-2024 Patient encounter procedure 01/20/2024 7:45 AM EDT Office Visit Cardiology [address] [place] [address] Transcatheter Mitral Valve in Valve Replacement with Pickett 29mm S3 + JERRY. Cardiology Comment on above: Transcatheter Mitral Valve in Valve Replacement with Pickett 29mm S3 + JERRY. Start: 01-20-2024 End: 01-20-2024 ambulatory 01/20/2024 7:30 AM EDT Procedure Cardiology [address] [place] [address] Transcatheter Mitral Valve in Valve Replacement with Pickett 29mm S3 + JERRY. Cardiology Comment on above: Transcatheter Mitral Valve in Valve Replacement with Pickett 29mm S3 + JERRY. Start: 01-20-2024 End: 01-20-2024 Evaluation and management of inpatient 01/20/2024 5:23 AM EDT - 01/20/2024 12:40 PM EDT Surgery Admitting [address] [place], [place] [id number] Tano Aldana MD [address] [facility] [address] [place] [address] TRANSCATH MITRAL VALVE IMPLANT/REPLACE,PROSTHET IC VALVE,PERCUTANEOUS APPROACH Admitting Comment on above: TRANSCATH MITRAL CARLOS VE IMPLANT/REPLACE,PROSTHETIC VALVE,PERCUTANEOUS APPROACH Start: 01-20-2024 End: 01-20-2024 Tmvi w/prosthetic valve percutaneous approach TRANSCATH MITRAL VALVE IMPLANT/REPLACE,PROSTHET IC VALVE,PERCUTANEOUS APPROACH Coronary graft stenosis, initial encounter 01/20/2024 5:23 AM EDT [facility]IYA FIERRO CT [facility] Start: 01-14-2024 End: 01-14-2024 ambulatory 01/14/2024 8:30 AM EDT Procedure Cardiology [address] [place], [place] [id number] Eren Mcdowell MD [address] [place] [address] [id number] Cardiology Comment on above: [id number] Start: 01-14-2024 End: 01-14-2024 Cath placement & njx coronary art angio img s&i CATH CORONARY ARTERY ANGIOGRAPHY W/ INTRAPROCEDURAL INJECTION IMAGING SUPERVISIO/INTERPRETATIO N Valvular heart disease 01/14/2024 4:00 AM 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 Start: 01-14-2024 End: 01-14-2024 Evaluation and management of inpatient 01/14/2024 4:00 AM EDT - 01/14/2024 5:12 AM EDT Surgery [facility] [address] [place] [address] Eren Mcdowell MD [address] [place] [address] CATH CORONARY ARTERY ANGIOGRAPHY W/ INTRAPROCEDURAL INJECTION IMAGING SUPERVISIO/INTERPRETATIO N HOSP [facility] Comment on above: CATH CORONARY ARTERY ANGIOGRAPHY W/ INTRAPROCEDURAL INJECTION IMAGING SUPERVISIO/INTERPRETATION Start: 01-13-2024 End: 01-13-2024 Thoracentesis needle/cath pleura w/imaging THORACENTESIS NEEDLE OR CATHETER ASPIRATION OF THE PLEURAL SPACE W IMAGING GUIDANCE Bronchiolar disease 01/13/2024 9:35 AM EDT PULM [facility] Start: 01-05-2024 End: 04-05-2024 Basic metabolic 2000 panel - Serum or Plasma BASIC METABOLIC PANEL Lab Routine Acute exacerbation of chronic heart failure (HCC) Expected: 01/05/2024, Expires: 04/05/2024 [facility] Work Phone: Comment on above: Expected: 01/05/2024 , Expires: 04/05/2024 Start: 10-04-2023 COVID-19 VACCINE (#1) COVID-19 VACCI NE (#1) [facility] Comment on above: Postponed from 06/17 (Declined at this time) Start: 09-23-2023 End: 12-23-2023 CBC panel - Blood by Automated count CBC Lab Routine Pulmonary hypertension (HCC) H/O mitral valve replacement Acquired hypothyroidism Expected: 09/23/2023 (Approximate), Expires: 12/23/2023 [facility] Work Phone: Comment on above: Expected: 09/23/2023 (Approximate), Expires: 12/23/2023 Start: 09-23-2023 End: 12-23-2023 Comprehensive metabolic 2000 panel - Serum or Plasma COMP METABOLIC PANEL Lab Routine Pulmonary hypertension (HCC) Expected: 09/23/2023 (Approximate), Expires: 12/23/2023 [facility] Work Phone: Comment on above: Expected: 09/23/2023 (Approximate), Expires: 12/23/2023 Start: 09-23-2023 End: 12-23-2023 Thyrotropin [Units/volume] in Serum or Plasma TSH BLD Lab Routine Acquired hypothyroidism Expected: 09/23/2023 (Approximate), Expires: 12/23/2023 [facility] Work Phone: Comment on above: Expected: 09/23/2023 (Approximate), Expires: 12/23/2023 Start: 05-26-2023 Advance Directive Discussion Advance Directive Discussion [facility] Start: 05-26-2023 Depression Assessment Depression Ass essment [facility] Start: 04-05-2023 End: 06-05-2023 CBC panel - Blood by Automated count CBC Lab Routine Acquired hypothyroidism Pulmonary hypertension (HCC) Expected: 04/05/2023 (Approximate), Expires: 06/05/2023 [facility] Work Phone: Comment on above: Expected: 04/05/2023 (Approximate), Expires: 06/05/2023 Start: 04-05-2023 End: 06-05-2023 Comprehensive metabolic 2000 panel - Serum or Plasma COMP METABOLIC PANEL Lab Routine H/O mitral valve replacement Pulmonary hypertension (HCC) Expected: 04/05/2023 (Approximate), Expires: 06/05/2023 [facility] Work Phone: Comment on above: Expected: 04/05/2023 (Approximate), Expires: 06/05/2023 Start: 04-05-2023 End: 06-05-2023 Thyrotropin [Units/volume] in Serum or Plasma TSH BLD Lab Routine Acquired hypothyroidism Expected: 04/05/2023 (Approximate), Expires: 06/05/2023 [facility] Work Phone: Comment on above: Expected: 04/05/2023 (Approximate), Expires: 06/05/2023 Start: 01-24-2023 Covid-19 Vaccine () Covid-19 Vaccine () [facility] Start: 09-29-2022 End: 11-29-2022 CBC panel - Blood by Automated count CBC Lab Routine Acquired hypothyroidism Expected: 09/29/2022 (Approximate), Expires: 11/29/2022 [facility] Work Phone: Comment on above: Expected: 09/29/2022 (Approximate), Expires: 11/29/2022 Start: 09-29-2022 End: 11-29-2022 Comprehensive metabolic 2000 panel - Serum or Plasma COMP METABOLIC PANEL Lab Routine Acquired hypothyroidism Expected: 09/29/2022 (Approximate), Expires: 11/29/2022 [facility] Work Phone: Comment on above: Expected: 09/29/2022 (Approximate), Expires: 11/29/2022 Start: 09-29-2022 End: 11-29-2022 Thyrotropin [Units/volume] in Serum or Plasma TSH BLD Lab Routine Acquired hypothyroidism Expected: 09/29/2022 (Approximate), Expires: 11/29/2022 [facility] Work Phone: Comment on above: Expected: 09/29/2022 (Approximate), Expires: 11/29/2022 Start: 05-26-2022 ADVANCE DIRECTIVE DISCUSSION ADVANCE DIRECTIVE DISCUSSION [facility] Start: 05-26-2022 DEPRESSION ASSESSMENT DEPRESSION ASS ESSMENT [facility] Start: 03-31-2022 End: 05-31-2022 Thyrotropin [Units/volume] in Serum or Plasma TSH BLD Lab Routine Acquired hypothyroidism Expected: 03/31/2022, Expires: 05/31/2022 [facility] Work Phone: Comment on above: Expected: 03/31/2022 , Expires: 05/31/2022 Start: 05-26-2021 ADVANCE DIRECTIVE DISCUSSION ADVANCE DIRECTIVE DISCUSSION [facility] Start: 06-09-2017 End: 06-09-2017 Appointment Appointment [facility] Work Phone: Start: 12-12-2016 End: 12-12-2016 Appointment Appointment [facility] Work Phone: Start: 12-12-2016 End: 12-12-2016 Follow Up Appt 6 months Follow Up Appt 6 months [facility] Work Phone: Start: 12-12-2016 End: 12-12-2016 Follow Up Appt Other Follow Up Appt Other [facility] Work Phone: Start: 12-12-2016 End: 12-12-2016 MMM MMM [facility] Work Phone: Start: 06-05-2016 End: 06-05-2016 Follow Up Appt 6 months Follow Up Appt 6 months [facility] Work Phone: Start: 06-05-2016 End: 06-05-2016 PFM PFM [facility] Work Phone: Start: 12-07-2015 End: 12-07-2015 Follow Up Appt 6 months Follow Up Appt 6 months [facility] Work Phone: Start: 12-07-2015 End: 12-07-2015 MMM MMM [facility] Work Phone: Start: 07-13-2015 End: 07-17-2015 *CBC with Differential *CBC with Differential [facility] Work Phone: Start: 07-13-2015 End: 07-13-2015 Electrocardiogram, complete EKG (In office) [facility] Work Phone: Start: 07-13-2015 End: 07-17-2015 Erythrocyte sedimentation rate *Sedimentation Rate (ESR) [facility] Work Phone: Start: 07-13-2015 End: 07-13-2015 Follow Up Appt 6 months Follow Up Appt 6 months [facility] Work Phone: Start: 07-13-2015 End: 07-13-2015 PFM PFM [facility] Work Phone: Start: 12-26-2014 End: 12-26-2014 Follow Up Appt 6 months Follow Up Appt 6 months [facility] Work Phone: Start: 12-26-2014 End: 12-26-2014 MMM MMM [facility] Work Phone: Start: 10-14-2014 SHINGRIX VACCINE (2 of 3) SANCHEZ GRIX VACCINE (2 of 3) [facility] Start: 06-07-2014 End: 07-07-2015 Electrocardiogram, complete EKG (In office) [facility] Work Phone: Start: 05-31-2014 End: 05-31-2014 Echocardiography Echocardiogram (complete) [facility] Work Phone: Start: 05-31-2014 End: 07-07-2015 Electrocardiogram, complete EKG (In office) [facility] Work Phone: Start: 05-31-2014 End: 05-31-2014 Follow Up Appt 6 months Follow Up Appt 6 months [facility] Work Phone: Start: 05-31-2014 End: 05-31-2014 Follow Up Appt Other Follow Up Appt Other [facility] Work Phone: Start: 05-31-2014 End: 05-31-2014 PFM PFM [facility] Work Phone: Start: 02-08-2014 End: 02-08-2014 Follow Up Appt 3 months Follow Up Appt 3 months [facility] Work Phone: Start: 02-08-2014 End: 02-08-2014 PFM PFM [facility] Work Phone: Start: 12-01-2013 End: 01-25-2014 Follow Up Appt Other Follow Up Appt Other [facility] Work Phone: Start: 11-05-2013 End: 01-25-2014 Cardiac Rehab Cardiac Rehab [facility] Work Phone: Start: 11-05-2013 End: 11-08-2013 Cardiovascular stress test using treadmill Treadmill stress test (no imaging) [employer] Phone: Start: 11-05-2013 End: 11-05-2013 Electrocardiogram, complete EKG (In office) [facility] Work Phone: Start: 11-05-2013 End: 11-05-2013 Follow Up Appt 3 months Follow Up Appt 3 months [employer] [facility] Work Phone: Start: 11-05-2013 End: 11-05-2013 MMM MMM [facility] Work Phone: Start: 10-26-2013 End: 10-29-2013 Coagulation factor induced.INR assay in platelet poor plasma *PT/INR - Standing Order [facility] Work Phone: Start: 09-15-2013 End: 01-25-2014 Cardiac Referral Cardiac Referral Jose Cason, [facility], [address], [place], [address] [employer] Work Phone: Start: 09-02-2013 End: 09-06-2013 *BMP *BMP [employer] [facility] Work Phone: Start: 09-02-2013 End: 09-06-2013 *CBC with Differential *CBC with Differential [employer] Work Phone: Start: 09-02-2013 End: 09-06-2013 aPTT *PTT-Partial Thromboplastin Time [employer] Work Phone: Start: 09-02-2013 End: 09-06-2013 aPTT Coag time (PPP) *PTT-Partial Thromboplastin Time [employer] Work Phone: Start: 09-02-2013 End: 09-09-2013 Chest x-ray X-Ray, Chest, PA & Lateral [employer] Work Phone: Start: 09-02-2013 End: 09-06-2013 Coagulation factor induced.INR assay in platelet poor plasma *PT/INR [facility] Work Phone: Start: 09-02-2013 End: 09-02-2013 Electrocardiogram, complete EKG (In office) [employer] [employer] Work Phone: Start: 09-02-2013 End: 09-02-2013 Follow Up Appt 3 months Follow Up Appt 3 months [employer] Work Phone: Start: 09-02-2013 End: 09-02-2013 Left & Right Heart Cath Left & Right Heart Cath [employer] [facility] Work Phone: Start: 09-02-2013 End: 09-02-2013 MMM MMM [facility] Work Phone: Start: 2012 RSV Vaccine (1 - 1-d ose 75+ series) RSV Vaccine (1 - 1-dose 75+ series) [facility] Start: 1997 RSV Vaccine (1 - 1-d ose 60+ series) RSV Vaccine (1 - 1-dose 60+ series) [facility] Start: 1942 COVID-19 VACCINE (1) COVID-19 VACCIN E (1) [facility] Start: 06-17-1936 COVID-19 VACCINE (#1) COVID-19 VACCI NE (#1) [facility] CARDIAC IMPLANTABLE DEVICE CHECK CARDIAC IMPLANTABLE DEVICE CHECK PACEART Routine Pacemaker reprogramming/check 02/24/2024 1:00 PM EDT [facility] CARDIAC REHAB II OUT PT ([place], [place]) CARDIAC REHAB II OUTPT ([place]) BIC Routine Mixed hyperlipidemia S/P transcatheter mitral valve replacement (TMVR) Ordered: 02/24/2024 [facility] Work Phone: Comment on above: Ordered: 02/24/2024 End: 02-23-2025 ECG COMPLETE ECG COMPLETE ECG Routine Essential hypertension Mixed hyperlipidemia S/P transcatheter mitral valve replacement (TMVR) 1 Occurrences starting 02/24/2024 until 02/23/2025 [facility] Work Phone: Comment on above: 1 Occurrences starti ng 02/24/2024 until 02/23/2025 End: 02-23-2025 Echocardiography ECHO Cardiology Routine Essential hypertension Mixed hyperlipidemia S/P transcatheter mitral valve replacement (TMVR) 1 Occurrences starting 02/24/2024 until 02/23/2025 [facility] Comment on above: 1 Occurrences starti ng 02/24/2024 until 02/23/[address] [facility] Work Phone: End: 10-05-2025 Screening colonoscopy COLONOSCOPY SCREENING Endoscopy Routine Screening for colon cancer Family history of colon cancer in father History of colonic polyps 1 Occurrences starting 10/05/2024 until 10/05/2025 [facility] Work Phone: Comment on above: 1 Occurrences starti ng 10/05/2024 until 10/05/2025 Tissue Pathology bio psy report [facility] Work Phone: Comment on above: Release Upon Orderin g for 1 Occurrences starting 11/01/2024, 1 completed Tmvi w/prosthetic va lve percutaneous approach TRANSCATH MITRAL VALVE IMPLANT/REPLACE,PROSTHET IC VALVE,PERCUTANEOUS APPROACH Coronary graft stenosis, initial encounter SANIYA FIERRO CT & VAS [facility] Immunizations Immunization Date Immunization Notes Care Provider Sampson perry 04-06-2024 influenza, high dose seasonal, preservative-free Jesus Taylor MD Work Phone: [facility] 04-06-2024 influenza virus vacc ine, unspecified formulation Pennie Ruelas APRN.CNP Work Phone: [facility] 04-29-2023 influenza (HD-IIV4) vaccine, age 65+ yr, high dose, quadrivalent, PF (FLUZONE HIGH-DOSE) Jesus Taylor MD Work Phone: [facility] 04-29-2023 influenza virus vacc ine, unspecified formulation Jesus Taylor MD Work Phone: [facility] 04-01-2022 influenza, high-dose , quadrivalent vaccine (FLUZONE HIGH DOSE QUADRIVALENT) Jesus Taylor MD Work Phone: [facility] 03-29-2021 influenza, high-dose , quadrivalent vaccine (FLUZONE HIGH DOSE QUADRIVALENT) Jesus Taylor MD Work Phone: [facility] 04-13-2020 influenza, high-dose , quadrivalent vaccine (FLUZONE HIGH DOSE QUADRIVALENT) Jesus Taylor MD Work Phone: [facility] 03-01-2019 influenza, high dose seasonal, preservative-free Jesus Taylor MD Work Phone: [facility] 02-26-2018 influenza, high dose seasonal, preservative-free Jesus Taylor MD Work Phone: [facility] 03-14-2017 yellow fever vaccine Jesus cerna MD Work Phone: [facility] 02-13-2017 influenza, high dose seasonal, preservative-free Jesus Taylor MD Work Phone: [facility] 02-08-2016 influenza, high dose seasonal, preservative-free Jesus Taylor MD Work Phone: [facility] 05-02-2015 tetanus and diphther ia toxoids, adsorbed, preservative free, for adult use (5 Lf of tetanus toxoid and 2 Lf of diphtheria toxoid) Jesus Taylor MD Work Phone: [facility] 05-02-2015 typhoid vaccine, unspecified formulation Jesus Taylor MD Work Phone: [facility] 05-02-2015 typhoid capsular polysaccharide vaccine Jesus Taylor MD Work Phone: [facility] 02-21-2015 influenza, high dose seasonal, preservative-free Jesus Taylor MD Work Phone: [facility] Work Phone: 02-03-2015 pneumococcal conjuga te vaccine, 13 valent Jesus Taylor MD Work Phone: [facility] 08-19-2014 zoster vaccine, live Jesus cerna MD Work Phone: [facility] 03-14-2014 influenza, seasonal, injectable Jesus Taylor MD Work Phone: [facility] Work Phone: 03-30-2013 influenza virus vacc ine, unspecified formulation Jesus Taylor MD Work Phone: [facility] Work Phone: 02-23-2013 Influenza virus vaccine [facility] 02-23-2013 influenza, seasonal, injectable, preservative free Ip Echo [facility] 03-09-2012 influenza virus vacc ine, unspecified formulation Jesus Taylor MD Work Phone: [facility] Work Phone: 03-28-2010 influenza virus vacc ine, unspecified formulation Jesus Taylor MD Work Phone: [facility] 07-24-2008 pneumococcal polysaccharide vaccine, 23 valent Jesus Taylor MD Work Phone: [facility] 07-24-2008 Pneumococcal Vaccine [facility] Work Phone: 07-24-2008 pneumococcal vaccine , unspecified formulation Dr. Jesus Taylor Work Phone: [facility] 02-01-2008 diphtheria and tetan us toxoids, adsorbed for pediatric use Jesus Taylor MD Work Phone: [facility] Work Phone: 02-01-2008 hepatitis A vaccine, unspecified formulation Jesus Taylor MD Work Phone: [facility] Work Phone: 02-01-2008 tetanus toxoid, redu jackie diphtheria toxoid, and acellular pertussis vaccine, adsorbed Jesus Taylor MD Work Phone: [facility] 09-26-2007 pneumococcal polysaccharide vaccine, 23 valent Jesus Taylor MD Work Phone: [facility] Work Phone: 01-26-1998 diphtheria and tetan us toxoids, adsorbed for pediatric use Jesus Taylor MD Work Phone: [facility] Work Phone: 01-26-1998 hepatitis A vaccine, unspecified formulation Jesus Taylor MD Work Phone: [facility] Work Phone: 10-29-1985 diphtheria and tetan us toxoids, adsorbed for pediatric use Jesus Taylor MD Work Phone: [facility] Work Phone: 03-14-1977 diphtheria and tetan us toxoids, adsorbed for pediatric use Jesus Taylor MD Work Phone: [facility] Work Phone: 08-25-1972 diphtheria and tetan us toxoids, adsorbed for pediatric use Jesus Taylor MD Work Phone: [facility] Work Phone: Payers Date Payer Category Payer Self-pay [id number] [id number] 2021 Medicare HUMANA MEDICARE HUMANA GOLD PLUS [id number] 2021-Present [phone] [place], [place] [address] [facility] [id number] 2021 Medicare HUMANA MEDICARE HUMANA GOLD PLUS [id number] 2021-Present [phone] [place] [phone] [facility] [id number] 2021 Medicare (Managed Care) HUMANA G OLD PLUS [id number] 2014 Medicare [id number] Unknown [id number] Unknown [id number] Unknown [id number] Unknown [id number] Unknown [id number] Unknown [id number] Unknown [id number] Unknown [id number] Unknown [id number] Unknown [id number] Unknown [id number] Social History Date Type Detail Facility Start: 04-01-2022 End: 01-08-2024 Tobacco smoking status NHIS Never smoked tobacco [facility] Start: 03-29-2021 End: 11-01-2024 Alcohol intake Current non-drinker of alcohol (finding) [facility] Start: 1935 Sex Assigned At Not on file C [facility] Start: 09-18-2021 End: 04-01-2022 Exposure to SARS-CoV-2 (event) Not sure [facility] Start: 1935 Sex Assigned At Male [facility] Start: 10-04-2021 End: 09-01-2023 Tobacco smoking status NHIS Unknown if ever smoked [facility] Start: 08-27-2013 None [facility] Start: 08-27-2013 Non-smoker [facility] Start: 04-01-2022 Tobacco use and exposure Smokeless tobacco non-user [facility] Start: 04-29-2023 End: 01-09-2024 History of Social function [facility] Work Phone: Start: 04-29-2023 End: 01-09-2024 Tobacco use panel [facility] Work Phone: Start: 04-26-2012 Adult Depression Screening Assessment 0 [facility] Work Phone: Has the [employer], [employer], or water company threatened to shut off services in your home in past 12Mo No [facility] Work Phone: (I/We) worried wheth er (my/our) food would run out before (I/we) got money to buy more. Never true [facility] Medical Equipment Procedure Code Equipment Code Equipment Origin al Text Equipment Identifier Dates [place] Cv 4x.5in Thk1.65mm Ptfe - [id number] Start: 10-20-2013 Valve Mitrl 29mm Bprth Thrmfx - [id number] Start: 10-20-2013 Comment on above: Description: For Fredy ral Valve Replacement Lead Caps[employer]fix Novus 6.2fr 2mm 10mm Space Small Straight Steroid Eluting - [id number] Start: 01-20-2024 [id number] Marni Xt Mri [id number] Start: 01-23-2024 Valve Deric 29m m Aortic Transcatheter Retroflex 3 Transfemoral Heart - [id number] Start: 01-20-2024 [id number] [employer] [id number] Start: 01-22-2024 [id number] Capsurefix Novus Mri [id number] Start: 01-22-2024 Goals Date Patient Goal Desired Activity /State Personal health goal Functional Status Date Assessment Result Facility 01-23-2024 Are you deaf, or do you have serious difficulty hearing No 01/23/2024 6:33 PM EDT Prabhu Calix, ANGE No [facility] 01-23-2024 Are you blind, or do you have serious difficulty seeing, even when wearing glasses No 01/23/2024 6:33 PM EDT Prabhu Calix, ANGE No [facility] 01-23-2024 Do you have serious difficulty walking or climbing stairs No 01/23/2024 6:33 PM EDPrabhu Harris, ANGE No [facility] 01-23-2024 Do you have difficul ty dressing or bathing No 01/23/2024 6:33 PM EDT Prabhu Calix, ANGE No [facility] 01-23-2024 Because of a physica l, mental, or emotional condition, do you have difficulty doing errands alone such as visiting a physician's office or shopping No 01/23/2024 6:33 PM EDPrabhu Harris, ANGE No [facility] Mental Status Date Assessment Result Facility 01-23-2024 Because of a physica l, mental, or emotional condition, do you have serious difficulty concentrating, remembering, or making decisions No 01/23/2024 6:33 PM Prabhu Hodgson, ANGE No [facility] Clinical Notes 09-23-2013 to 03-22-2025 Note Date & Type Note Facility 03-22-2025 Note HNO ID: [id number] Author: JESUS TAYLOR MD Service: ? Author Type: Physician Type: Progress Notes Filed: 03/22/2025 11:19 Note Text: Chief Complaint Patient presents with: 6 Month Exam Immunizations: Flu vaccination CASEY Castillo is a 89 year old male who presents here today for 6 month follow up. No bowel, Gi, or urinary issues. Had colonoscopy done in October by Dr. Pope. Has chronic constipation issues. Osteoporosis: Taking Calcium and Vit D once a day. Has not tolerated Fosamax or Boniva, due to not being able to tolerate. HTN/MVR: Follows with Cardio at [facility]. Has pacemaker which is checked by [facility]. No chest pains, dizziness, or Shortness of Breath. Taking ASA 325 mg daily. Thyroid: Taking Synthroid 75 mcg daily. Follows with [facility] but is not happy with them so thinking about getting another opinion because his skin issue has returned. Past medical history, appointments, medications, allergies reviewed. Previous Medical History PAST MEDICAL HISTORY Diagnosis Date Diverticulosis of colon (without mention of hemorrhage) History of transfusion Mitral stenosis Osteoporosis Polio (HCC) Hx as a child. left arm weakness/atrophy. 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 AGE 4 Unspecified hypothyroidism Previous Surgical History PAST SURGICAL HISTORY Procedure Laterality Date COLONOSCOPY 11/01/2024 COLONOSCOPY FLX DX W/COLLJ SPEC WHEN PFRMD 07/31/2001 Colonoscopy COLONOSCOPY FLX DX W/COLLJ SPEC WHEN PFRMD 12/28/2007 Colonoscopy COLONOSCOPY FLX DX W/COLLJ SPEC WHEN PFRMD 03/07/2014 Colonoscopy COLONOSCOPY FLX DX W/COLLJ SPEC WHEN PFRMD 03/10/2017 no repeat needed COLONOSCOPY FLX DX W/COLLJ SPEC WHEN PFRMD 11/21/2020 HEART SURGERY HX I/D PERIANAL ABSCESS, SUPERFICIAL 03/23/2012 Right anterior perianal abscess PAST SURGICAL HISTORY OF Hemorrhoidectomy PAST SURGICAL HISTORY OF right rotator cuff REPLACEMENT MITRAL VALVE W/CARDIOPULMONARY BYP 2013 Mitral valve replacement SURG TX ANAL FISTULA INTERSPHINCTERIC 04/09/2012 TONSILLECTOMY PRIMARY/SECONDARY Tonsillectomy Family History FAMILY HISTORY Problem Relation Age of Onset Colon Cancer Father Osteoporosis Mother Ischemic Heart Disease Sister d. 65 during CABG. other (Mitral valve disease) Sister rheumatic fever Hx. Patient Allergies ALLERGIES Allergen Reactions Alendronate Unknown Fosamax [Alendronat* Intolerance musculoskeletal pain Current Medications Current Outpatient Medications on File Prior to Visit Medication Sig levothyroxine (SYNTHROID) 75 mcg tablet Take one pill daily for 7 days/week aspirin, enteric coated (ASPIRIN, ENTERIC COATED) 325 mg EC tablet Take 1 tablet by mouth once daily. therapeutic multivitamin tablet Take 1 tablet by mouth daily with breakfast. No current facility-administered medications on file prior to visit. Social History SOCIAL HISTORY[1] EXAM: BP 130/78 Pulse 72 Resp 16 Wt 66.6 kg (146 lb 13.2 oz) BMI 23.70 kg/m? General Appearance: Well appearing, alert, in no acute distress, well-hydrated, well nourished.. Lungs: Lungs clear to auscultation. No wheezing, rhonchi, rales.. Heart: RRR without murmur, gallop, or rubs. No ectopy. Health Maintenance List Advance Directive Discussion due on 05/26/2024 Medicare Advantage Annual Wellness Visit Never done Influenza Vaccine(1) due on 01/24/2025 Covid-19 Vaccine(1 - 2024- season) Never done RSV Vaccine(1 - 1-dose 75+ series) due on 04/06/2025 Shingrix Vaccine(2 of 3) due on 10/05/2025 DTaP,Tdap,Td Vaccine(8 - Td or Tdap) due on 05/02/2025 Depression Screening due on 10/05/2025 Anxiety Screening due on 10/05/2025 Diabetes Screening due on 03/17/2028 Pneumococcal Vaccine: 50+ Completed Data reviewed Appointment on 03/17/2025 Component Date Value Protein, Total 03/17/2025 7.0 Albumin 03/17/2025 4.1 Calcium, Total 03/17/2025 9.5 Bilirubin, Total 03/17/2025 0.3 Alkaline Phosphatase 03/17/2025 66 AST 03/17/2025 22 ALT 03/17/2025 16 Glucose 03/17/2025 95 BUN 03/17/2025 25 (H) Creatinine 03/17/2025 1.17 Sodium 03/17/2025 142 Potassium 03/17/2025 4.3 Chloride 03/17/2025 106 CO2 03/17/2025 29 Anion Gap 03/17/2025 7 (L) Estimated Glomerular Nirav* 03/17/2025 60 TSH 03/17/2025 0.860 WBC 03/17/2025 6.91 RBC 03/17/2025 4.43 Hemoglobin 03/17/2025 14.1 Hematocrit 03/17/2025 43.8 MCV 03/17/2025 98.9 MCH 03/17/2025 31.8 MCHC 03/17/2025 32.2 RDW-CV 03/17/2025 13.4 Platelet Count 03/17/2025 158 MPV 03/17/2025 11.1 Neutrophils % 03/17/2025 63.8 Abs Neut 03/17/2025 4.41 Lymphocytes % 03/17/2025 22.6 Abs Lymph 03/17/2025 1.56 Monocytes % 03/17/2025 10.0 Abs [place] 03/17/2025 0.69 Eosinophils % 03/17/2025 2.6 Abs Eosin 03/17/2025 0.18 Basophils % 03/17/2025 0.7 Abs Baso 03/17/2025 0.05 Immature Granulocytes % 03/17/2025 0.3 (more content not included)... [facility] 03-09-2025 Note HNO ID: [id number] Author: ?, ?, ? Service: ? Author Type: ? Type: Progress Notes Filed: 03/09/2025 12:39 Note Text: Summary: KCCQ-12 AMB TVT FOLLOWUP: Follow Up Type: Phone Call Call Attempt: Final Attempt Call Status: No Answer [facility] 03-09-2025 Note Patient Outreach (ALONA NEWSOMEN) RUPERTO CASTILLO ([id number]) 1935 M Date Time Provider Department 03/09/25 CODIE KING During your visit today, we recorded the following information about you: Codie King 03/09/2025 12:39 PM Signed AMB TVT FOLLOWUP: Follow Up Type: Phone Call Call Attempt: Final Attempt Call Status: No Answer Allergies As of Date: 03/09/2025 Noted Allergy Reaction ALENDRONATE 08/30/2013 16 - Unknown FOSAMAX (ALENDRONATE SODIUM) 07/10/2006 5 - Intolerance Comments: musculoskeletal pain Date Reviewed: 11/08/2024 Reviewed by: Sue Beltrán, ANGE - Fully Assessed Prescriptions as of 03/09/2025 - levothyroxine (SYNTHROID) 75 mcg tablet Take one pill daily for 7 days/week - aspirin, enteric coated (ASPIRIN, ENTERIC COATED) 325 mg EC tablet Take 1 tablet by mouth once daily. - therapeutic multivitamin tablet Take 1 tablet by mouth daily with breakfast. Meds Comments as of 04/13/2020: Uses Mineral Oil prn for constipation. 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] 10/26/2009 [id number] [K60.30] 03/23/2012 Perianal abscess [K61.0] 03/23/2012 08/27/2017 Skin cancer [C44.90] 06/14/2013 08/27/2017 Rheumatic heart disease [I09.9] 10/19/2013 Mitral stenosis with insufficiency [I05.2] 10/19/2013 Screening for colon cancer [Z12.11] 10/19/2013 Mechanically assisted ventilation [Z99.11] 10/20/2013 10/21/2013 Intravascular volume depletion [E86.1] 10/20/2013 10/23/2013 Acute postoperative pain [G89.18] 10/20/2013 08/27/2017 Hypotension [I95.9] 10/21/2013 10/25/2013 PFO (patent foramen ovale) [Q21.12] 10/21/2013 Hypoalbuminemia [E88.09] 10/21/2013 10/25/2013 Nutrition disorder [E63.9] 10/21/2013 Atelectasis [J98.11] 10/22/2013 08/27/2017 A-fib (HCC) [I48.91] 10/23/2013 08/12/2016 SUMMARY [V999.95] 10/23/2013 History of mitral valve replacement with biopro*11/02/2013 History of colonic polyps [Z86.0100] 02/11/2017 Chronic constipation [K59.09] 09/28/2021 Pulmonary hypertension (HCC) [I27.20] 10/03/2022 Acute heart failure with preserved ejection fra*01/08/2024 Congestive heart failure (HCC) [I50.9] 01/03/2024 Acute on chronic respiratory failure (HCC) [J96*01/08/2024 01/30/2024 Pleural effusion [J90] 01/08/2024 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] 08/30/2013 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] 01/08/2024 Paroxysmal atrial fibrillation (HCC) [I48.0] 10/26/2013 01/30/2024 Mitral valve stenosis, rheumatic [I05.0] 01/12/2024 Prosthetic mitral valve failure requiring repla*01/13/2024 Severe protein-calorie malnutrition (HCC) [E43] 01/19/2024 01/30/2024 Prosthetic valve dysfunction [T82.09XA] 01/20/2024 Essential hypertension [I10] 02/24/2024 Mixed hyperlipidemia [E78.2] 02/24/2024 S/P transcatheter mitral valve replacement (TMV*02/24/2024 Pacemaker [Z95.0] 02/24/2024 Complete heart block (HCC) [I44.2] 02/24/2024 Encounter Status:Closed by CODIE KING on 03/09/25 [facility] 03-08-2025 Procedure note [facility] 03-08-2025 Note HNO ID: [id number] Author: ?, ?, ? Service: ? Author Type: ? Type: Progress Notes Filed: 03/08/2025 10:59 Note Text: Summary: KCCQ-12 AMB TVT FOLLOWUP: Follow Up Type: Phone Call Call Attempt: 1st Attempt Call Status: Left Message [facility] 03-08-2025 Note Patient Outreach (CIUMN) RUPERTO CASTILLO ([id number]) 1935 M Date Time Provider Department 03/08/25 CODIE KING During your visit today, we recorded the following information about you: Codie King 03/08/2025 10:59 AM Signed AMB TVT FOLLOWUP: Follow Up Type: Phone Call Call Attempt: 1st Attempt Call Status: Left Message Allergies As of Date: 03/08/2025 Noted Allergy Reaction ALENDRONATE 08/30/2013 16 - Unknown FOSAMAX (ALENDRONATE SODIUM) 07/10/2006 5 - Intolerance Comments: musculoskeletal pain Date Reviewed: 11/08/2024 Reviewed by: Sue Beltrán, RN - Fully Assessed Prescriptions as of 03/08/2025 - levothyroxine (SYNTHROID) 75 mcg tablet Take one pill daily for 7 days/week - aspirin, enteric coated (ASPIRIN, ENTERIC COATED) 325 mg EC tablet Take 1 tablet by mouth once daily. - therapeutic multivitamin tablet Take 1 tablet by mouth daily with breakfast. Meds Comments as of 04/13/2020: Uses Mineral Oil prn for constipation. 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] 03/11/2005 07/28/2008 Cervicalgia [M54.2] 09/30/2005 06/06/2010 Family history of colon cancer in father [Z80.0]02/17/2006 Sprain and strain of unspecified site of should*02/17/2006 06/06/2010 Personal history of poliomyelitis [Z86.12] 07/28/2008 Acquired hypothyroidism [E03.9] 04/27/2009 Drug-Induced Osteoporosis [M81.8, T50.905A] 10/26/2009 Qkriaxm-ue-hsc [K60.30] 03/23/2012 Perianal abscess [K61.0] 03/23/2012 08/27/2017 Skin cancer [C44.90] 06/14/2013 08/27/2017 Rheumatic heart disease [I09.9] 10/19/2013 Mitral stenosis with insufficiency [I05.2] 10/19/2013 Screening for colon cancer [Z12.11] 10/19/2013 Mechanically assisted ventilation [Z99.11] 10/20/2013 10/21/2013 Intravascular volume depletion [E86.1] 10/20/2013 10/23/2013 Acute postoperative pain [G89.18] 10/20/2013 08/27/2017 Hypotension [I95.9] 10/21/2013 10/25/2013 PFO (patent foramen ovale) [Q21.12] 10/21/2013 Hypoalbuminemia [E88.09] 10/21/2013 10/25/2013 Nutrition disorder [E63.9] 10/21/2013 Atelectasis [J98.11] 10/22/2013 08/27/2017 A-fib (HCC) [I48.91] 10/23/2013 08/12/2016 SUMMARY [V999.95] 10/23/2013 History of mitral valve replacement with biopro*11/02/2013 History of colonic polyps [Z86.0100] 02/11/2017 Chronic constipation [K59.09] 09/28/2021 Pulmonary hypertension (HCC) [I27.20] 10/03/2022 Acute heart failure with preserved ejection fra*01/08/2024 Congestive heart failure (HCC) [I50.9] 01/03/2024 Acute on chronic respiratory failure (HCC) [J96*01/08/2024 01/30/2024 Pleural effusion [J90] 01/08/2024 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] 08/30/2013 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] 01/08/2024 Paroxysmal atrial fibrillation (HCC) [I48.0] 10/26/2013 01/30/2024 Mitral valve stenosis, rheumatic [I05.0] 01/12/2024 Prosthetic mitral valve failure requiring repla*01/13/2024 Severe protein-calorie malnutrition (HCC) [E43] 01/19/2024 01/30/2024 Prosthetic valve dysfunction [T82.09XA] 01/20/2024 Essential hypertension [I10] 02/24/2024 Mixed hyperlipidemia [E78.2] 02/24/2024 S/P transcatheter mitral valve replacement (TMV*02/24/2024 Pacemaker [Z95.0] 02/24/2024 Complete heart block (HCC) [I44.2] 02/24/2024 Encounter Status:Closed by CODIE KING on 03/08/25 [facility] 03-03-2025 Note HNO ID: [id number] Author: ?, ?, ? Service: ? Author Type: ? Type: Progress Notes Filed: 03/03/2025 12:51 Note Text: POPULATION HEALTH NAVIGATION OUTREACH Action/ Patient outreach for HM due; AWV, Flu. Will need to establish care with new pcp next year Lvm to schedule updated appointment notes Reason for Outreach Care Gap/HCC or Scheduling Wellness Visits Care Gaps due: Medicare Annual Wellness Visit Establish Care Appointment Flu Vaccine Patient Contacted: Unable or unnecessary to reach patient: Left message Updated appointment notes Navigation Signature: Maribel Chaparro March 03, 2025 12:46 PM [facility] 03-03-2025 Note Patient Outreach (NETNAV) RUPERTO CASTILLO ([id number]) 1935 M Date Time Provider Department 03/03/25 JESUS TAYLOR During your visit today, we recorded the following information about you: Maribel Jackson 03/03/2025 12:51 PM Signed POPULATION HEALTH NAVIGATION OUTREACH Action/FYI Patient outreach for HM due; AWV, Flu. Will need to establish care with new pcp next year Lvm to schedule updated appointment notes Reason for Outreach Care Gap/HCC or Scheduling Wellness Visits Care Gaps due: Medicare Annual Wellness Visit Establish Care Appointment Flu Vaccine Patient Contacted: Unable or unnecessary to reach patient: Left message Updated appointment notes Navigation Signature: Maribel Chaparro March 03, 2025 12:46 PM Allergies As of Date: 03/03/2025 Noted Allergy Reaction ALENDRONATE 08/30/2013 16 - Unknown FOSAMAX (ALENDRONATE SODIUM) 07/10/2006 5 - Intolerance Comments: musculoskeletal pain Date Reviewed: 11/08/2024 Reviewed by: Sue Beltrán RN - Fully Assessed Reason for Visit: Population Health Navigation Outreach [3910] Cmt: Akhil Ayoub Prescriptions as of 03/03/2025 - levothyroxine (SYNTHROID) 75 mcg tablet Take one pill daily for 7 days/week - aspirin, enteric coated (ASPIRIN, ENTERIC COATED) 325 mg EC tablet Take 1 tablet by mouth once daily. - therapeutic multivitamin tablet Take 1 tablet by mouth daily with breakfast. Meds Comments as of 04/13/2020: Uses Mineral Oil prn for constipation. 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] 10/26/2009 Jseecji-cl-chf [K60.30] 03/23/2012 Perianal abscess [K61.0] 03/23/2012 08/27/2017 Skin cancer [C44.90] 06/14/2013 08/27/2017 Rheumatic heart disease [I09.9] 10/19/2013 Mitral stenosis with insufficiency [I05.2] 10/19/2013 Screening for colon cancer [Z12.11] 10/19/2013 Mechanically assisted ventilation [Z99.11] 10/20/2013 10/21/2013 Intravascular volume depletion [E86.1] 10/20/2013 10/23/2013 Acute postoperative pain [G89.18] 10/20/2013 08/27/2017 Hypotension [I95.9] 10/21/2013 10/25/2013 PFO (patent foramen ovale) [Q21.12] 10/21/2013 Hypoalbuminemia [E88.09] 10/21/2013 10/25/2013 Nutrition disorder [E63.9] 10/21/2013 Atelectasis [J98.11] 10/22/2013 08/27/2017 A-fib (HCC) [I48.91] 10/23/2013 08/12/2016 SUMMARY [V999.95] 10/23/2013 History of mitral valve replacement with biopro*11/02/2013 History of colonic polyps [Z86.0100] 02/11/2017 Chronic constipation [K59.09] 09/28/2021 Pulmonary hypertension (HCC) [I27.20] 10/03/2022 Acute heart failure with preserved ejection fra*01/08/2024 Congestive heart failure (HCC) [I50.9] 01/03/2024 Acute on chronic respiratory failure (HCC) [J96*01/08/2024 01/30/2024 Pleural effusion [J90] 01/08/2024 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] 08/30/2013 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] 01/08/2024 Paroxysmal atrial fibrillation (HCC) [I48.0] 10/26/2013 01/30/2024 Mitral valve stenosis, rheumatic [I05.0] 01/12/2024 Prosthetic mitral valve failure requiring repla*01/13/2024 Severe protein-calorie malnutrition (HCC) [E43] 01/19/2024 01/30/2024 Prosthetic valve dysfunction [T82.09XA] 01/20/2024 Essential hypertension [I10] 02/24/2024 Mixed hyperlipidemia [E78.2] 02/24/2024 S/P transcatheter mitral valve replacement (TMV*02/24/2024 Pacemaker [Z95.0] 02/24/2024 Complete heart block (HCC) [I44.2] 02/24/2024 Encounter Status:Closed by MARIBEL JACKSON on 03/03/25 [facility] 12-09-2024 Evaluation note Diagnosis Onset Date Resolution Complete heart block by electrocardiogram acute December 09 8:50am Presence of cardiac pacemaker acute December 09, 2024 8:50am S/P transcatheter mitral valve replacement (TMVR) acute December 092024 8:50am Paroxysmal atrial fibrillation chronic December 09, 2024 8:50am [place] [employer] Work Phone: 1(460) 286-150307-17-2025 Evaluation note* Diagnosis Onset Date Resolution Status Admit Date Complete heart block by electrocardiogram acute December 09 8:50am Presence of cardiac pacemaker acute December 09, 2024 8:50am S/P transcatheter mitral carlos ve replacement (TMVR) acute December 09 8:50am Paroxysmal atrial fibrillation chron ic December 09, 2024 8:50am Complete heart block by electrocardiogram acute March 08, 2025 8:51am Diastolic heart failure, NYH A class 3 acute March 08 8:51am Presence of cardiac pacemaker acute March 08, 2025 8:51am [place] [facility] Work Phone: 1(929) 592-454906-16-2025 History of Present illness Narrative* Pennie Ruelas APRN.[employer]INTER - 11/08/2024 9:00 AM EDT FOLLOW UP VISIT - ENDOSCOPY Ruperto A Mast 1935 [id number] REFERRING PHYSICIAN: No referring provider defined for this encounter. Rupreto Castillo is a patient I am following for screening colonoscopy- hx of polyps & family hx of colon cancer in father. Dr. Pope performed lower endoscopy on 11/01/24. The patient was found to have Impression: - Preparation of the colon was poor. - Stool in the entire examined colon. - Two small (4-6 mm) polyps in the sigmoid colon and in the transverse colon, removed with a cold snare. Resected and retrieved. - Non-bleeding internal hemorrhoids. - The examination was otherwise normal. Pathology demonstrated: FINAL DIAGNOSIS A. Colon, transverse, polyp, polypectomy - Tubular adenoma B. Colon, sigmoid, polyp, polypectomy - Tubular adenoma The patient notes no complaints since the procedure. VITALS: There were no vitals taken for this visit. General: patient is alert, cooperative, pleasant and in no acute distress On examination, the abdomen is benign. Assessment ASSESSMENT/PLAN: 1. Multiple adenomatous polyps - ICD9: 229.9, ICD10: D36.9 The operative findings and pathology report were reviewed with the patient, and the patient has hadthe opportunity to ask questions and have questions answered. If the patient notes any problems or changes in bowel function, the patient should contact me immediately. Otherwise I recommend follow up endoscopy in 3-5 years due to poor bowel prep. HM updated. Discussed treatment plan and patient voices understanding. Patient's questions answered appropriately. Medications and potential side effects were discussed and patient voices understanding. Return to the office as scheduled or as needed for worsening/no improvement. Pennie Ruelas APRN.LATONYA [facility] NoteHNO ID: [id number] Author: PENNIE RUELAS APRN.LATONYA Service: ? Author Type: Nurse Practitioner Type: Progress Notes Filed: 11/08/2024 09:20 Note Text: FOLLOW UP VISIT - ENDOSCOPY Ruperto Castillo 1935 [id number] REFERRING PHYSICIAN: No referring provider defined for this encounter. Ruperto Castillo is a patient I am following for screening colonoscopy- hx of polyps AND family hx of colon cancer in father. Dr. Pope performed lower endoscopy on 11/01/24. The patient was found to have Impression: - Preparation of the colon was poor. - Stool in the entire examined colon. - Two small (4-6 mm) polyps in the sigmoid colon and in the transverse colon, removed with a cold snare. Resected and retrieved. - Non-bleeding internal hemorrhoids. - The examination was otherwise normal. Pathology demonstrated: FINAL DIAGNOSIS A. Colon, transverse, polyp, polypectomy - Tubular adenoma B. Colon, sigmoid, polyp, polypectomy - Tubular adenoma The patient notes no complaints since the procedure. VITALS: There were no vitals taken for this visit. General: patient is alert, cooperative, pleasant and in no acute distress On examination, the abdomen is benign. Assessment ASSESSMENT/PLAN: 1. Multiple adenomatous polyps - ICD9: 229.9, ICD10: D36.9 The operative findings and pathology report were reviewed with the patient, and the patient has had the opportunity to ask questions and have questions answered. If the patient notes any problems or changes in bowel function, the patient should contact me immediately. Otherwise I recommend follow up endoscopy in 3-5 years due to poor bowel prep. HM updated. Discussed treatment plan and patient voices understanding. Patient's questions answered appropriately. Medications and potential side effects were discussed and patient voices understanding. Return to the office as scheduled or as needed for worsening/no improvement. Pennie Ruelas APRN.[facility]06-09-2025 History and physical note* Fritz Pope MD - 11/01/2024 11:00 AM EDT HISTORY AND PHYSICAL Ruperto Lyn Mast : 1935 REFERRING PHYSICIAN: Jesus Taylor [address] [place] [address] CHIEF COMPLAINT: Patient presents with: Consult: Here for colonoscopy D/T previous polyps HPI: Ruperto is a 88 year old male referred for endoscopy. Ruperto notes due for screening colonoscopy- hx of polyps (2020). Ruperto denies abdominal pain. Ruperto denies diarrhea. Ruperto notes chronic constipation. -uses psyllium husk Ruperto denies a change in bowel habits. Ruperto denies melena. Ruperto denies bright red blood per rectum. Ruperto denies hemorrhoids. Ruperto notes family history of colon issues. -Family history of colon cancer in father Ruperto denies heartburn. Ruperto denies dysphagia. Ruperto denies a history of ulcers/ peptic ulcer disease. Ruperto follows with [facility] for MVR and HTN. 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 Last OV 05/2024. Last pacer check:08/10/24. Last ECHO 05/2024 EF: 55%.He denies CP, SOB, dizziness, palpitations, syncope, edema, recent hospitalizations Other medical history is significant for hypothyroidism,osteoporosis and chronic constipation. Ruperto has undergone prior endoscopy. Last colonoscopy was 10/[address] Arteaga at [facility]. Sedation:Midazolam 4 mg IV, Fentanyl 50 micrograms IV Impression: - The examined portion of the ileum was normal. - One 5 mm polyp in the descending colon, removed with a cold biopsy forceps. Resected and retrieved. - One 7 mm polyp at the hepatic flexure, removed with a cold snare. Resected and retrieved. Clip (MRconditional) was placed. - Melanosis in the colon. Biopsied. - The distal rectum and anal verge are normal onretroflexion view. CONVERTED FINAL DIAGNOSIS 1. Descending colon, polypectomy (A) - Tubular adenoma. - Melanosis coli. 2. Random colon, biopsies (B) - Colonic mucosa with melanosis coli. 3. Hepatic flexure, polypectomy (C) - Tubular adenoma. - Melanosis coli. DSA/rw 11/22/2020 CURRENT MEDICATIONS Current Outpatient Medications Medication Sig levothyroxine (SYNTHROID) 75 mcg tablet Take one pill daily for 7 days/week triamcinolone acetonide (KENALOG) 0.1 % cream Apply to affected area two times a day. aspirin, enteric coated (ASPIRIN, ENTERIC COATED) 325 mg EC tablet Take 1 tablet by mouth once daily. therapeutic multivitamin tablet Take 1 tablet by mouth daily with breakfast. peg 3350-Electrolytes (GOLYTELY) 236-22.74-6.74 -5.86 gram suspension Take 4,000 mL by mouth one time only for 1 dose. Refer to printed prep instructions from your provider. No current facility-administered medications for this visit. ALLERGIES: Alendronate and Fosamax [Alendronate Sodium] PAST MEDICAL HISTORY PAST MEDICAL HISTORY Diagnosis Date Diverticulosis of colon (without mention of hemorrhage) History of transfusion Mitral stenosis Osteoporosis Polio (HCC) Hx as a child. left arm weakness/atrophy. 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 AGE 4 Unspecified hypothyroidism PAST SURGICAL HISTORY PAST SURGICAL HISTORY Procedure Laterality Date COLONOSCOPY FLX DX W/COLLJ SPEC WHEN PFRMD 07/31/2001 Colonoscopy COLONOSCOPY FLX DX W/COLLJ SPEC WHEN PFRMD 12/28/2007 Colonoscopy COLONOSCOPY FLX DX W/COLLJ SPEC WHEN PFRMD 03/07/2014 Colonoscopy COLONOSCOPY FLX DX W/COLLJ SPEC WHEN PFRMD 03/10/2017 no repeat needed COLONOSCOPY FLX DX W/COLLJ SPEC WHEN PFRMD 11/21/2020 HEART SURGERY HX I/D PERIANAL ABSCESS, SUPERFICIAL 03/23/2012 Right anterior perianal abscess PAST SURGICAL HISTORY OF Hemorrhoidectomy PAST SURGICAL HISTORY OF right rotator cuff REPLACEMENT MITRAL VALVE W/CARDIOPULMONARY BYP 2013 Mitral valve replacement SURG TX ANAL FISTULA INTERSPHINCTERIC 04/09/2012 TONSILLECTOMY PRIMARY/SECONDARY Tonsillectomy FAMILY HISTORY FAMILY HISTORY Problem Relation Age of Onset Colon Cancer Father Osteoporosis Mother Ischemic Heart Disease Sister d. 65 during CABG. other (Mitral valve disease) Sister rheumatic fever Hx. SOCIAL HISTORY Social History Tobacco Use Smoking status: Never Smokeless tobacco: Never Vaping Use Vaping status: Never Used Substance Use Topics Alcohol use: No Drug use: No REVIEW OF SYMPTOMS: REVIEW OF SYSTEMS: General: The patient denies fatigue, denies weight loss, denies weight gain, denies feeling hot, and feelings of cold. Eyes: The patient denies glaucoma, denies eye injury/surgery, + glasses or contacts. Ear/Nose/Throat: The patient denies allergies, denies hayfever, denies ear infections, and denies bloody noses. Cardiovascular: The patient denies chest pain, + heart disease, denies high blood pressure, denies high cholesterol, and denies poor circulation. Respiratory: The patient denies tuberculosis, denies pneumonia, denies frequent cough, denies shortness of breath, and denies coughing up blood. Gastrointestinal: The patient denies difficulty swallowing, denies acid reflux, denies ulcers, denies jaundice/hepatitis, denies gallbladder problems, denies vomiting, denies black or tarry stools, denies hemorrhoids, denies bleeding from rectum, denies diverticulitis, + constipation, denies diarrhea, denies loss of stool control, and denies hernias. Kidney/Bladder: The patient denies kidney stones, denies urine infections, and denies bloody urine. Skin: The patient denies a history of skin cancer, denies bleeding/changing moles, and denies a history of skin rash. Neurologic: The patient denies a history of epilepsy/convulsions, denies headaches, denies head/spinal injuries, and denies stroke/TIA. Psychiatric: The patient denies psychiatric medications, denies depression, and denies voices. Endocrine: The patient + thyroid disorders, denies diabetes, and denies hormonal problems. Hematologic: The patient denies a history of bruising, denies bleeding, and denies anemia. Infections: The patient denies a history of measles and mumps, denies rheumatic fever, and denies sexually transmitted diseases. Musculoskeletal: The patient denies back pain/injury, denies back problems, denies sciatica, deniesknee/foot trouble, denies arthritis, or denies gout. PHYSICAL EXAMINATION: General: The patient is 88 year old, male well nourished, well hydrated in no acute distress. The patient is oriented to time, place, and person. VITALS: Blood pressure 154/71, pulse 75, resp. rate 16, weight 67.8 kg (149 lb 6.4 oz), SpO2 98%. Body mass index is 24.11 kg/m . HEENT: Normal cephalic, ataumatic, pupils are equally round, sclera are anicteric, mucous membranesare moist, oropharynx is clear. Neck has no masses, asymmetry or lymphadenopathy. Respiratory: Clear to auscultation. Normal respiratory excursion and pattern. Cardiac: Examination is regular rate and rhythm. Normal S1/S2 Abdominal exam: Soft, nontender, with no palpable masses. No hepatosplenomegaly. No palpable hernias. Extremities: no clubbing, cyanosis or edema. No adenopathy. LABORATORY VALUES: As Noted RADIOLOGIC STUDIES: As Noted Assessment IMPRESSION: screen for colon cancer, family history of colon cancer, history of colon polyps PLAN: I have reviewed my findings with the surgeon. Will plan for lower endoscopy. We discussed therisks and benefits of the planned endoscopy in terms understandable to the patient. I have informedthe patient that complications can occur including failure to complete the endoscopy and perforation. Ruperto had the opportunity to ask questions concerning the planned endoscopy. Ruperto freely consents tosurgery. I plan to use Golytely bowel preparation I have explained to the patient the difference between IV conscious sedation and MAC anesthesia - and I have offered either, according to the patient's wishes. I have explained that with IV conscioussedation there is no anesthesia provider available and therefore there is a limitation of the amount of IV medications that can be given and that the patient may wake up in the middle of the procedure and/or experience pain/discomfort during the procedure. Further discussion was done and the patient was given the opportunity to ask questions and all questions were answered. Ruperto chooses IV conscious sedation. Ruperto was counseled that if there are changes in his/her medical condition, to let the office know ifsurgery should proceed. If there are changes in patient's medical condition from time of this encounter to the day of the procedure that preclude anesthesia, patient may have procedure cancelled for patient's safety. Diagnoses: (Z80.0) Family history of colon cancer in father (primary encounter diagnosis) (Z12.11) Screening for colon cancer (Z86.0100) History of colonic polyps Consultation requested by Dr. Taylor for an opinion regarding colon cancer screening. My final recommendations will be communicated back to the requesting physician by way of shared Medical record or letter to requesting physician via US mail. Portions of this documentation were copied and pasted from previous office visit notes in order to provide a cohesive continuity of the history. The note has been reviewed and edited and updated as necessary. Pennie Ruelas APRN.CNP UPDATED HISTORY AND PHYSICAL EXAMINATION SERVICE DATE: 11/01/2024 SERVICE TIME: 10:08 AM PHYSICAL EXAM MUST BE COMPLETED ON ADMISSION The History and Physical (completed in the past 30 days) has been reviewed and the patient has beenexamined. The contents accurately reflect the patient's condition with the following additions or revisions since the H&P was completed. Examination indicates no changes. This H&P can be found in the attached. SIGNATURE: Fritz Pope III, MD PATIENT NAME: Ruperto Castillo DATE: November 01, 2024 TIME: 10:08 AM [facility]06-09-[facility] History and physical note* Fritz Pope MD - 11/01/2024 11:00 AM EDT HISTORY AND PHYSICAL Ruperto Lyn Mast : 1935 REFERRING PHYSICIAN: Jesus [address] [facility] [address] CHIEF COMPLAINT: Patient presents with: Consult: Here for colonoscopy D/T previous polyps HPI: Ruperto is a 88 year old male referred for endoscopy. Ruperto notes due for screening colonoscopy- hx of polyps (2020). Ruperto denies abdominal pain. Ruperto denies diarrhea. Ruperto notes chronic constipation. -uses psyllium husk Ruperto denies a change in bowel habits. Ruperto denies melena. Ruperto denies bright red blood per rectum. Ruperto denies hemorrhoids. Ruperto notes family history of colon issues. -Family history of colon cancer in father Ruperto denies heartburn. Ruperto denies dysphagia. Ruperto denies a history of ulcers/ peptic ulcer disease. Ruperto follows with [facility] for MVR and HTN. 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 Last OV 05/2024. Last pacer check:08/10/24. Last ECHO 05/2024 EF: 55%.He denies CP, SOB, dizziness, palpitations, syncope, edema, recent hospitalizations Other medical history is significant for hypothyroidism,osteoporosis and chronic constipation. Ruperto has undergone prior endoscopy. Last colonoscopy was 10/[address] Arteaga at [facility]. Sedation:Midazolam 4 mg IV, Fentanyl 50 micrograms IV Impression: - The examined portion of the ileum was normal. - One 5 mm polyp in the descending colon, removed with a cold biopsy forceps. Resected and retrieved. - One 7 mm polyp at the hepatic flexure, removed with a cold snare. Resected and retrieved. Clip (MRconditional) was placed. - Melanosis in the colon. Biopsied. - The distal rectum and anal verge are normal onretroflexion view. CONVERTED FINAL DIAGNOSIS 1. Descending colon, polypectomy (A) - Tubular adenoma. - Melanosis coli. 2. Random colon, biopsies (B) - Colonic mucosa with melanosis coli. 3. Hepatic flexure, polypectomy (C) - Tubular adenoma. - Melanosis coli. DSA/rw 11/22/2020 CURRENT MEDICATIONS Current Outpatient Medications Medication Sig levothyroxine (SYNTHROID) 75 mcg tablet Take one pill daily for 7 days/week triamcinolone acetonide (KENALOG) 0.1 % cream Apply to affected area two times a day. aspirin, enteric coated (ASPIRIN, ENTERIC COATED) 325 mg EC tablet Take 1 tablet by mouth once daily. therapeutic multivitamin tablet Take 1 tablet by mouth daily with breakfast. peg 3350-Electrolytes (GOLYTELY) 236-22.74-6.74 -5.86 gram suspension Take 4,000 mL by mouth one time only for 1 dose. Refer to printed prep instructions from your provider. No current facility-administered medications for this visit. ALLERGIES: Alendronate and Fosamax [Alendronate Sodium] PAST MEDICAL HISTORY PAST MEDICAL HISTORY Diagnosis Date Diverticulosis of colon (without mention of hemorrhage) History of transfusion Mitral stenosis Osteoporosis Polio (HCC) Hx as a child. left arm weakness/atrophy. 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 AGE 4 Unspecified hypothyroidism PAST SURGICAL HISTORY PAST SURGICAL HISTORY Procedure Laterality Date COLONOSCOPY FLX DX W/COLLJ SPEC WHEN PFRMD 07/31/2001 Colonoscopy COLONOSCOPY FLX DX W/COLLJ SPEC WHEN PFRMD 12/28/2007 Colonoscopy COLONOSCOPY FLX DX W/COLLJ SPEC WHEN PFRMD 03/07/2014 Colonoscopy COLONOSCOPY FLX DX W/COLLJ SPEC WHEN PFRMD 03/10/2017 no repeat needed COLONOSCOPY FLX DX W/COLLJ SPEC WHEN PFRMD 11/21/2020 HEART SURGERY HX I/D PERIANAL ABSCESS, SUPERFICIAL 03/23/2012 Right anterior perianal abscess PAST SURGICAL HISTORY OF Hemorrhoidectomy PAST SURGICAL HISTORY OF right rotator cuff REPLACEMENT MITRAL VALVE W/CARDIOPULMONARY BYP 2013 Mitral valve replacement SURG TX ANAL FISTULA INTERSPHINCTERIC 04/09/2012 TONSILLECTOMY PRIMARY/SECONDARY <AGE 12 Tonsillectomy FAMILY HISTORY FAMILY HISTORY Problem Relation Age of Onset Colon Cancer Father Osteoporosis Mother Ischemic Heart Disease Sister d. 65 during CABG. other (Mitral valve disease) Sister rheumatic fever Hx. SOCIAL HISTORY Social History Tobacco Use Smoking status: Never Smokeless tobacco: Never Vaping Use Vaping status: Never Used Substance Use Topics Alcohol use: No Drug use: No REVIEW OF SYMPTOMS: REVIEW OF SYSTEMS: General: The patient denies fatigue, denies weight loss, denies weight gain, denies feeling hot, and feelings of cold. Eyes: The patient denies glaucoma, denies eye injury/surgery, + glasses or contacts. Ear/Nose/Throat: The patient denies allergies, denies hayfever, denies ear infections, and denies bloody noses. Cardiovascular: The patient denies chest pain, + heart disease, denies high blood pressure, denies high cholesterol, and denies poor circulation. Respiratory: The patient denies tuberculosis, denies pneumonia, denies frequent cough, denies shortness of breath, and denies coughing up blood. Gastrointestinal: The patient denies difficulty swallowing, denies acid reflux, denies ulcers, denies jaundice/hepatitis, denies gallbladder problems, denies vomiting, denies black or tarry stools, denies hemorrhoids, denies bleeding from rectum, denies diverticulitis, + constipation, denies diarrhea, denies loss of stool control, and denies hernias. Kidney/Bladder: The patient denies kidney stones, denies urine infections, and denies bloody urine. Skin: The patient denies a history of skin cancer, denies bleeding/changing moles, and denies a history of skin rash. Neurologic: The patient denies a history of epilepsy/convulsions, denies headaches, denies head/spinal injuries, and denies stroke/TIA. Psychiatric: The patient denies psychiatric medications, denies depression, and denies voices. Endocrine: The patient + thyroid disorders, denies diabetes, and denies hormonal problems. Hematologic: The patient denies a history of bruising, denies bleeding, and denies anemia. Infections: The patient denies a history of measles and mumps, denies rheumatic fever, and denies sexually transmitted diseases. Musculoskeletal: The patient denies back pain/injury, denies back problems, denies sciatica, deniesknee/foot trouble, denies arthritis, or denies gout. PHYSICAL EXAMINATION: General: The patient is 88 year old, male well nourished, well hydrated in no acute distress. The patient is oriented to time, place, and person. VITALS: Blood pressure 154/71, pulse 75, resp. rate 16, weight 67.8 kg (149 lb 6.4 oz), SpO2 98%. Body mass index is 24.11 kg/m . HEENT: Normal cephalic, ataumatic, pupils are equally round, sclera are anicteric, mucous membranesare moist, oropharynx is clear. Neck has no masses, asymmetry or lymphadenopathy. Respiratory: Clear to auscultation. Normal respiratory excursion and pattern. Cardiac: Examination is regular rate and rhythm. Normal S1/S2 Abdominal exam: Soft, nontender, with no palpable masses. No hepatosplenomegaly. No palpable hernias. Extremities: no clubbing, cyanosis or edema. No adenopathy. LABORATORY VALUES: As Noted RADIOLOGIC STUDIES: As Noted Assessment IMPRESSION: screen for colon cancer, family history of colon cancer, history of colon polyps PLAN: I have reviewed my findings with the surgeon. Will plan for lower endoscopy. We discussed therisks and benefits of the planned endoscopy in terms understandable to the patient. I have informedthe patient that complications can occur including failure to complete the endoscopy and perforation. Ruperto had the opportunity to ask questions concerning the planned endoscopy. Ruperto freely consents tosurgery. I plan to use Golytely bowel preparation I have explained to the patient the difference between IV conscious sedation and MAC anesthesia - and I have offered either, according to the patient's wishes. I have explained that with IV conscioussedation there is no anesthesia provider available and therefore there is a limitation of the amount of IV medications that can be given and that the patient may wake up in the middle of the procedure and/or experience pain/discomfort during the procedure. Further discussion was done and the patient was given the opportunity to ask questions and all questions were answered. Ruperto chooses IV conscious sedation. Ruperto was counseled that if there are changes in his/her medical condition, to let the office know ifsurgery should proceed. If there are changes in patient's medical condition from time of this encounter to the day of the procedure that preclude anesthesia, patient may have procedure cancelled for patient's safety. Diagnoses: (Z80.0) Family history of colon cancer in father (primary encounter diagnosis) (Z12.11) Screening for colon cancer (Z86.0100) History of colonic polyps Consultation requested by Dr. Taylor for an opinion regarding colon cancer screening. My final recommendations will be communicated back to the requesting physician by way of shared Medical record or letter to requesting physician via US mail. Portions of this documentation were copied and pasted from previous office visit notes in order to provide a cohesive continuity of the history. The note has been reviewed and edited and updated as necessary. Pennie Ruelas APRN.SHIPYARD PAINTER UPDATED HISTORY AND PHYSICAL EXAMINATION SERVICE DATE: 11/01/2024 SERVICE TIME: 10:08 AM PHYSICAL EXAM MUST BE COMPLETED ON ADMISSION The History and Physical (completed in the past 30 days) has been reviewed and the patient has beenexamined. The contents accurately reflect the patient's condition with the following additions or revisions since the H&P was completed. Examination indicates no changes. This H&P can be found in the attached. SIGNATURE: Fritz Pope III, MD PATIENT NAME: Ruperto Castillo DATE: November 01, 2024 TIME: 10:08 AM [facility] Note* Discharge Instr - Laila Zhu RN - 11/01/2024 10:58 AM EDT The patient received a copy of Colonoscopy discharge instructions that contain information for how to contact the physician who performed the procedure and when to seek medical care. [facility]06-09[facility] Miscellaneous Notes* Discharge Instr - Laila Zhu RN - 11/01/2024 10:58 AM EDT The patient received a copy of Colonoscopy discharge instructions that contain information for how to contact the physician who performed the procedure and when to seek medical care. documented in this encounterOhio[facility]05-13-2025 History of Present illness Narrative* Pennie Ruelas APRN.SHIPYARD PAINTER - 10/05/2024 10:30 AM EDT HISTORY AND PHYSICAL Ruperto Lyn Mast : 1935 REFERRING PHYSICIAN: Jesus Taylor [address] [facility] [address] CHIEF COMPLAINT: Patient presents with: Consult: Here for colonoscopy D/T previous polyps HPI: Ruperto is a 88 year old male referred for endoscopy. Ruperto notes due for screening colonoscopy- hx of polyps (2020). Ruperto denies abdominal pain. Ruperto denies diarrhea. Ruperto notes chronic constipation. -uses psyllium husk Ruperto denies a change in bowel habits. Ruperto denies melena. Ruperto denies bright red blood per rectum. Ruperto denies hemorrhoids. Ruperto notes family history of colon issues. -Family history of colon cancer in father Ruperto denies heartburn. Ruperto denies dysphagia. Ruperto denies a history of ulcers/ peptic ulcer disease. Ruperto follows with [facility] for MVR and HTN. 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 Last OV 05/2024. Last pacer check:08/10/24. Last ECHO 05/2024 EF: 55%.He denies CP, SOB, dizziness, palpitations, syncope, edema, recent hospitalizations Other medical history is significant for hypothyroidism,osteoporosis and chronic constipation. Ruperto has undergone prior endoscopy. Last colonoscopy was 10/[address] Arteaga at [facility]. Sedation:Midazolam 4 mg IV, Fentanyl 50 micrograms IV Impression: - The examined portion of the ileum was normal. - One 5 mm polyp in the descending colon, removed with a cold biopsy forceps. Resected and retrieved. - One 7 mm polyp at the hepatic flexure, removed with a cold snare. Resected and retrieved. Clip (MRconditional) was placed. - Melanosis in the colon. Biopsied. - The distal rectum and anal verge are normal onretroflexion view. CONVERTED FINAL DIAGNOSIS 1. Descending colon, polypectomy (A) - Tubular adenoma. - Melanosis coli. 2. Random colon, biopsies (B) - Colonic mucosa with melanosis coli. 3. Hepatic flexure, polypectomy (C) - Tubular adenoma. - Melanosis coli. DSA/rw 11/22/2020 Current Outpatient Medications Medication Sig levothyroxine (SYNTHROID) 75 mcg tablet Take one pill daily for 7 days/week triamcinolone acetonide (KENALOG) 0.1 % cream Apply to affected area two times a day. aspirin, enteric coated (ASPIRIN, ENTERIC COATED) 325 mg EC tablet Take 1 tablet by mouth once daily. therapeutic multivitamin tablet Take 1 tablet by mouth daily with breakfast. peg 3350-Electrolytes (GOLYTELY) 236-22.74-6.74 -5.86 gram suspension Take 4,000 mL by mouth one time only for 1 dose. Refer to printed prep instructions from your provider. No current facility-administered medications for this visit. ALLERGIES: Alendronate and Fosamax [Alendronate Sodium] PAST MEDICAL HISTORY Diagnosis Date Diverticulosis of colon (without mention of hemorrhage) History of transfusion Mitral stenosis Osteoporosis Polio (HCC) Hx as a child. left arm weakness/atrophy. 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 AGE 4 Unspecified hypothyroidism PAST SURGICAL HISTORY Procedure Laterality Date COLONOSCOPY FLX DX W/COLLJ SPEC WHEN PFRMD 07/31/2001 Colonoscopy COLONOSCOPY FLX DX W/COLLJ SPEC WHEN PFRMD 12/28/2007 Colonoscopy COLONOSCOPY FLX DX W/COLLJ SPEC WHEN PFRMD 03/07/2014 Colonoscopy COLONOSCOPY FLX DX W/COLLJ SPEC WHEN PFRMD 03/10/2017 no repeat needed COLONOSCOPY FLX DX W/COLLJ SPEC WHEN PFRMD 11/21/2020 HEART SURGERY HX I/D PERIANAL ABSCESS, SUPERFICIAL 03/23/2012 Right anterior perianal abscess PAST SURGICAL HISTORY OF Hemorrhoidectomy PAST SURGICAL HISTORY OF right rotator cuff REPLACEMENT MITRAL VALVE W/CARDIOPULMONARY BYP 2013 Mitral valve replacement SURG TX ANAL FISTULA INTERSPHINCTERIC 04/09/2012 TONSILLECTOMY PRIMARY/SECONDARY <AGE 12 Tonsillectomy FAMILY HISTORY Problem Relation Age of Onset Colon Cancer Father Osteoporosis Mother Ischemic Heart Disease Sister d. 65 during CABG. other (Mitral valve disease) Sister rheumatic fever Hx. Social History Tobacco Use Smoking status: Never Smokeless tobacco: Never Vaping Use Vaping status: Never Used Substance Use Topics Alcohol use: No Drug use: No REVIEW OF SYMPTOMS: REVIEW OF SYSTEMS: General: The patient denies fatigue, denies weight loss, denies weight gain, denies feeling hot, and feelings of cold. Eyes: The patient denies glaucoma, denies eye injury/surgery, + glasses or contacts. Ear/Nose/Throat: The patient denies allergies, denies hayfever, denies ear infections, and denies bloody noses. Cardiovascular: The patient denies chest pain, + heart disease, denies high blood pressure, denies high cholesterol, and denies poor circulation. Respiratory: The patient denies tuberculosis, denies pneumonia, denies frequent cough, denies shortness of breath, and denies coughing up blood. Gastrointestinal: The patient denies difficulty swallowing, denies acid reflux, denies ulcers, denies jaundice/hepatitis, denies gallbladder problems, denies vomiting, denies black or tarry stools, denies hemorrhoids, denies bleeding from rectum, denies diverticulitis, + constipation, denies diarrhea, denies loss of stool control, and denies hernias. Kidney/Bladder: The patient denies kidney stones, denies urine infections, and denies bloody urine. Skin: The patient denies a history of skin cancer, denies bleeding/changing moles, and denies a history of skin rash. Neurologic: The patient denies a history of epilepsy/convulsions, denies headaches, denies head/spinal injuries, and denies stroke/TIA. Psychiatric: The patient denies psychiatric medications, denies depression, and denies voices. Endocrine: The patient + thyroid disorders, denies diabetes, and denies hormonal problems. Hematologic: The patient denies a history of bruising, denies bleeding, and denies anemia. Infections: The patient denies a history of measles and mumps, denies rheumatic fever, and denies sexually transmitted diseases. Musculoskeletal: The patient denies back pain/injury, denies back problems, denies sciatica, deniesknee/foot trouble, denies arthritis, or denies gout. PHYSICAL EXAMINATION: General: The patient is 88 year old, male well nourished, well hydrated in no acute distress. The patient is oriented to time, place, and person. VITALS: Blood pressure 154/71, pulse 75, resp. rate 16, weight 67.8 kg (149 lb 6.4 oz), SpO2 98%. Body mass index is 24.11 kg/m . HEENT: Normal cephalic, ataumatic, pupils are equally round, sclera are anicteric, mucous membranesare moist, oropharynx is clear. Neck has no masses, asymmetry or lymphadenopathy. Respiratory: Clear to auscultation. Normal respiratory excursion and pattern. Cardiac: Examination is regular rate and rhythm. Normal S1/S2 Abdominal exam: Soft, nontender, with no palpable masses. No hepatosplenomegaly. No palpable hernias. Extremities: no clubbing, cyanosis or edema. No adenopathy. LABORATORY VALUES: As Noted RADIOLOGIC STUDIES: As Noted Assessment IMPRESSION: screen for colon cancer, family history of colon cancer, history of colon polyps PLAN: I have reviewed my findings with the surgeon. Will plan for lower endoscopy. We discussed therisks and benefits of the planned endoscopy in terms understandable to the patient. I have informedthe patient that complications can occur including failure to complete the endoscopy and perforation. Ruperto had the opportunity to ask questions concerning the planned endoscopy. Ruperto freely consents tosurgery. I plan to use Golytely bowel preparation I have explained to the patient the difference between IV conscious sedation and MAC anesthesia - and I have offered either, according to the patient's wishes. I have explained that with IV conscioussedation there is no anesthesia provider available and therefore there is a limitation of the amount of IV medications that can be given and that the patient may wake up in the middle of the procedure and/or experience pain/discomfort during the procedure. Further discussion was done and the patient was given the opportunity to ask questions and all questions were answered. Ruperto chooses IV conscious sedation. Ruperto was counseled that if there are changes in his/her medical condition, to let the office know ifsurgery should proceed. If there are changes in patient's medical condition from time of this encounter to the day of the procedure that preclude anesthesia, patient may have procedure cancelled for patient's safety. Diagnoses: (Z80.0) Family history of colon cancer in father (primary encounter diagnosis) (Z12.11) Screening for colon cancer (Z86.0100) History of colonic polyps Consultation requested by Dr. Taylor for an opinion regarding colon cancer screening. My final recommendations will be communicated back to the requesting physician by way of shared Medical record or letter to requesting physician via US mail. Portions of this documentation were copied and pasted from previous office visit notes in order to provide a cohesive continuity of the history. The note has been reviewed and edited and updated as necessary. Pennie Ruelas APRN.LATONYA documented in this encounterOhio[facility]-13-2025 NoteHNO ID: [id number] Author: PENNIE RUELAS APRN.CNP Service: ? Author Type: Nurse Practitioner Type: Progress Notes Filed: 10/05/2024 12:08 Note Text: HISTORY AND PHYSICAL Ruperto Castillo : 1935 REFERRING PHYSICIAN: Jesus Taylor [address] [facility] [address] CHIEF COMPLAINT: Patient presents with: Consult: Here for colonoscopy D/T previous polyps HPI: Ruperto is a 88 year old male referred for endoscopy. Ruperto notes due for screening colonoscopy- hx of polyps (2020). Ruperto denies abdominal pain. Ruperto denies diarrhea. Ruperto notes chronic constipation. -uses psyllium husk Ruperto denies a change in bowel habits. Ruperto denies melena. Ruperto denies bright red blood per rectum. Ruperto denies hemorrhoids. Ruperto notes family history of colon issues. -Family history of colon cancer in father Ruperto denies heartburn. Ruperto denies dysphagia. Ruperto denies a history of ulcers/ peptic ulcer disease. Ruperto follows with [facility] for MVR and HTN. 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 Last OV 05/2024. Last pacer check:08/10/24. Last ECHO 05/2024 EF: 55%.He denies CP, SOB, dizziness, palpitations, syncope, edema, recent hospitalizations Other medical history is significant for hypothyroidism,osteoporosis and chronic constipation. Ruperto has undergone prior endoscopy. Last colonoscopy was 10/[address] Arteaga at [facility]. Sedation:Midazolam 4 mg IV, Fentanyl 50 micrograms IV Impression: - The examined portion of the ileum was normal. - One 5 mm polyp in the descending colon, removed with a cold biopsy forceps. Resected and retrieved. - One 7 mm polyp at the hepatic flexure, removed with a cold snare. Resected and retrieved. Clip (MRconditional) was placed. - Melanosis in the colon. Biopsied. - The distal rectum and anal verge are normal onretroflexion view. CONVERTED FINAL DIAGNOSIS 1. Descending colon, polypectomy (A) - Tubular adenoma. - Melanosis coli. 2. Random colon, biopsies (B) - Colonic mucosa with melanosis coli. 3. Hepatic flexure, polypectomy (C) - Tubular adenoma. - Melanosis coli. DSA/rw 11/22/2020 Current Outpatient Medications Medication Sig levothyroxine (SYNTHROID) 75 mcg tablet Take one pill daily for 7 days/week triamcinolone acetonide (KENALOG) 0.1 % cream Apply to affected area two times a day. aspirin, enteric coated (ASPIRIN, ENTERIC COATED) 325 mg EC tablet Take 1 tablet by mouth once daily. therapeutic multivitamin tablet Take 1 tablet by mouth daily with breakfast. peg 3350-Electrolytes (GOLYTELY) 236-22.74-6.74 -5.86 gram suspension Take 4,000 mL by mouth one time only for 1 dose. Refer to printed prep instructions from your provider. No current facility-administered medications for this visit. ALLERGIES: Alendronate and Fosamax [Alendronate Sodium] PAST MEDICAL HISTORY Diagnosis Date Diverticulosis of colon (without mention of hemorrhage) History of transfusion Mitral stenosis Osteoporosis Polio (HCC) Hx as a child. left arm weakness/atrophy. 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 AGE 4 Unspecified hypothyroidism PAST SURGICAL HISTORY Procedure Laterality Date COLONOSCOPY FLX DX W/COLLJ SPEC WHEN PFRMD 07/31/2001 Colonoscopy COLONOSCOPY FLX DX W/COLLJ SPEC WHEN PFRMD 12/28/2007 Colonoscopy COLONOSCOPY FLX DX W/COLLJ SPEC WHEN PFRMD 03/07/2014 Colonoscopy COLONOSCOPY FLX DX W/COLLJ SPEC WHEN PFRMD 03/10/2017 no repeat needed COLONOSCOPY FLX DX W/COLLJ SPEC WHEN PFRMD 11/21/2020 HEART SURGERY HX I/D PERIANAL ABSCESS, SUPERFICIAL 03/23/2012 Right anterior perianal abscess PAST SURGICAL HISTORY OF Hemorrhoidectomy PAST SURGICAL HISTORY OF right rotator cuff REPLACEMENT MITRAL VALVE W/CARDIOPULMONARY BYP 2013 Mitral valve replacement SURG TX ANAL FISTULA INTERSPHINCTERIC 04/09/2012 TONSILLECTOMY PRIMARY/SECONDARY Tonsillectomy FAMILY HISTORY Problem Relation Age of Onset Colon Cancer Father Osteoporosis Mother Ischemic Heart Disease Sister d. 65 during CABG. other (Mitral valve disease) Sister rheumatic fever Hx. Social History Tobacco Use Smoking status: Never Smokeless tobacco: Never Vaping Use Vaping status: Never Used Substance Use Topics Alcohol use: No Drug use: No REVIEW OF SYMPTOMS: REVIEW OF SYSTEMS: General: The patient denies fatigue, denies weight loss, denies weight gain, denies feeling hot, and feelings of cold. Eyes: The patient denies glaucoma, denies eye injury/surgery, + glasses or contacts. Ear/Nose/Throat: The patient denies allergies, denies hayfever, denies ear infections, and denies bloody noses. Cardiovascular: The patient denies chest pain, + heart disease, denies high blood pressure, denies high cholesterol, and denies poor circulation. Respiratory: The patient denies tuberculosis, denies pneumonia, denies frequent cough, denies shortn (more content not included)...[facility]05-13-2025 History of Present illness Narrative* Jesus Taylor MD - 10/05/2024 9:00 AM EDT Chief Complaint Patient presents with: F/U 6 Month HPI Ruperto Castillo is a 88 year old male who presents here today for 6 month follow up. Pt here today for his routine follow up. Continues to keep himself busy. Plans on keeping busy as long as he can. Has been trying to get some mowing done, but it's been wet. GI/Uro - Chronic issues with constipation, using OTC products to help with this. Denies any urinaryissues. Reports nocturia, but denies this being issue. States this varies with how much water he drinks. Thyroid: Taking Synthroid 75 mcg daily. Feels stable on this dosage, unsure how to feel on medication. States a long time ago he quit taking it for a period of time, and felt no different. Denies anymissed dosages. Follows with Cardio, [facility] (every 6 months) for MVR and HTN. Has pacemaker checked [facility]. Overall reports feeling well at this time. Denies any chest pain, sob, or dizziness. Denies checking BP at home. Takes ASA 325 mg once daily. Osteoporosis: Taking Calcium and Vit D once a day. Has not tolerated Fosamax or Boniva, due to not being able to tolerate. Follows with Yenni Berger for routine skin checks. Had spot removed on his upper back recently. - Depression/Screening negative. Declines Shingles vaccine today. Has a Trust. Past medical history, appointments, medications, allergies reviewed. Previous Medical History PAST MEDICAL HISTORY Diagnosis Date Diverticulosis of colon (without mention of hemorrhage) History of transfusion Mitral stenosis Osteoporosis Polio Hx as a child. left arm weakness/atrophy. 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 AGE 4 Unspecified hypothyroidism Previous Surgical History PAST SURGICAL HISTORY Procedure Laterality Date COLONOSCOPY FLX DX W/COLLJ SPEC WHEN PFRMD 07/31/2001 Colonoscopy COLONOSCOPY FLX DX W/COLLJ SPEC WHEN PFRMD 12/28/2007 Colonoscopy COLONOSCOPY FLX DX W/COLLJ SPEC WHEN PFRMD 03/07/2014 Colonoscopy COLONOSCOPY FLX DX W/COLLJ SPEC WHEN PFRMD 03/10/2017 no repeat needed COLONOSCOPY FLX DX W/COLLJ SPEC WHEN PFRMD 11/21/2020 HEART SURGERY HX I/D PERIANAL ABSCESS, SUPERFICIAL 03/23/2012 Right anterior perianal abscess PAST SURGICAL HISTORY OF Hemorrhoidectomy PAST SURGICAL HISTORY OF right rotator cuff REPLACEMENT MITRAL VALVE W/CARDIOPULMONARY BYP 2013 Mitral valve replacement SURG TX ANAL FISTULA INTERSPHINCTERIC 04/09/2012 TONSILLECTOMY PRIMARY/SECONDARY <AGE 14 Tonsillectomy Family History FAMILY HISTORY Problem Relation Age of Onset Colon Cancer Father Osteoporosis Mother Ischemic Heart Disease Sister d. 65 during CABG. other (Mitral valve disease) Sister rheumatic fever Hx. Patient Allergies ALLERGIES Allergen Reactions Alendronate Unknown Fosamax [Alendronat* Intolerance musculoskeletal pain Current Medications Current Outpatient Medications on File Prior to Visit Medication Sig levothyroxine (SYNTHROID) 75 mcg tablet Take one pill daily for 7 days/week triamcinolone acetonide (KENALOG) 0.1 % cream Apply to affected area two times a day. aspirin, enteric coated (ASPIRIN, ENTERIC COATED) 325 mg EC tablet Take 1 tablet by mouth once daily. therapeutic multivitamin tablet Take 1 tablet by mouth daily with breakfast. No current facility-administered medications on file prior to visit. Social History Social History Tobacco Use Smoking status: Never Smokeless tobacco: Never Vaping Use Vaping status: Never Used Substance Use Topics Alcohol use: No Drug use: No EXAM: BP 118/68 (BP Site: Right Arm, BP Position: Sitting, BP Cuff Size: Regular Adult) Pulse 72 Resp18 Wt 67 kg (147 lb 11.3 oz) BMI 23.84 kg/m General Appearance: Well appearing, alert, in no acute distress, well-hydrated, well nourished.. Neck: Supple, no adenopathy; thyroid symmetric, normal size, no bruits. Lungs: Lungs clear to auscultation. No wheezing, rhonchi, rales.. Heart: RRR without murmur, gallop, or rubs. No ectopy. Extremities: Denies any lower leg edema. Health Maintenance List Shingrix Vaccine(2 of 3) due on 10/14/2014 Advance Directive Discussion due on 05/26/2024 Depression Screening due on 10/02/2024 Anxiety Screening due on 10/02/2024 RSV Vaccine(1 - 1-dose 75+ series) due on 04/06/2025 Covid-19 Vaccine( season) due on 04/06/2025 DTaP,Tdap,Td Vaccine(8 - Td or Tdap) due on 05/02/2025 Diabetes Screening due on 10/02/2027 Influenza Vaccine Completed Pneumococcal Vaccine: 50+ Completed Data reviewed Appointment on 10/01/2024 Component Date Value Protein, Total 10/01/2024 7.0 Albumin 10/01/2024 3.9 Calcium, Total 10/01/2024 8.9 Bilirubin, Total 10/01/2024 0.3 Alkaline Phosphatase 10/01/2024 64 AST 10/01/2024 40 ALT 10/01/2024 21 Glucose 10/01/2024 81 BUN 10/01/2024 26 (H) Creatinine 10/01/2024 1.06 Sodium 10/01/2024 139 Potassium 10/01/2024 4.5 Chloride 10/01/2024 105 CO2 10/01/2024 24 Anion Gap 10/01/2024 10 Estimated Glomerular Nirav* 10/01/2024 68 TSH 10/01/2024 0.619 ASSESSMENT/PLAN: 1. Acquired hypothyroidism - ICD9: 244.9, ICD10: E03.9 (primary diagnosis) - Instructed patient on importance of taking on an empty stomach either first thing in the morning or at bedtime. - check TSH in 6 months 2. Drug-induced osteoporosis - ICD9: 733.09, E947.9, ICD10: M81.8, T50.905A - Reviewed the need for Calcium and Vitamin D supplements and weight bearing exercise as tolerated 3. Hypertensive heart disease with heart failure (HCC) - ICD9: 402.91, 428.9, ICD10: I11.0 - Controlled - Recommend home blood pressure monitoring, to bring results to next visit - Encouraged sodium restriction, DASH or Mediterranean diet - Recommend regular aerobic exercise - Cont f/u with Cardio 4. Complete heart block (HCC) - ICD9: 426.0, ICD10: I44.2 - Stable - Cont f/u with Cardio 5. H/O mitral valve replacement - ICD9: V43.3, ICD10: Z95.2 - Stable - Cont f/u with Cardio 6. Pacemaker - ICD9: V45.01, ICD10: Z95.0 - Stable, continue f/u with for pacemaker checks 7. Screening for depression - ICD9: V79.0, ICD10: Z13.31 - Negative - DEPRESSION SCREENING 8. Encounter for screening examination for other mental health and behavioral disorders - ICD9: V79.8, ICD10: Z13.39 - Negative. - ANXIETY SCREENING 9. Screening for colon cancer - ICD9: V76.51, ICD10: Z12.11 - Refer to Dr. Arteaga to discuss possible surgery/suggestions, locations. - Pt preferring to stay in [place]. - Pt is to have repeat in 3 years, last Colonoscopy 2020. - CONSULT TO GENERAL SURGERY 6 mo f/u with labs. I agree with the Chief Complaint, ROS, and Past Histories independently gathered by the clinical personal support worker and the remaining scribed note accurately describes my personal service to the patient. Medical Decision Making: Problems: Moderate: 2+ stable chronic illnesses Data: Unique test result(s) reviewed: 2 Unique test(s) ordered: 2 Risk: Moderate: Drug management Medical Decision Making Level: 4 - Moderate Jesus Taylor MD The documentation for this note was completed by Danya Whitman MA acting as scribe for Jesus Taylor MD. October 05, 2024 9:05 AM. Danya Whitman MA documented in this encounter[facility] NoteHNO ID: [id number] Author: JESUS TAYLOR MD Service: ? Author Type: Physician Type: Progress Notes Filed: 10/05/2024 10:03 Note Text: Chief Complaint Patient presents with: F/U 6 Month HPI Ruperto Castillo is a 88 year old male who presents here today for 6 month follow up. Pt here today for his routine follow up. Continues to keep himself busy. Plans on keeping busy as long as he can. Has been trying to get some mowing done, but it's been wet. GI/Uro - Chronic issues with constipation, using OTC products to help with this. Denies any urinary issues. Reports nocturia, but denies this being issue. States this varies with how much water he drinks. Thyroid: Taking Synthroid 75 mcg daily. Feels stable on this dosage, unsure how to feel on medication. States a long time ago he quit taking it for a period of time, and felt no different. Denies any missed dosages. Follows with Cardio, [facility] (every 6 months) for MVR and HTN. Has pacemaker checked by [facility]. Overall reports feeling well at this time. Denies any chest pain, sob, or dizziness. Denies checking BP at home. Takes ASA 325 mg once daily. Osteoporosis: Taking Calcium and Vit D once a day. Has not tolerated Fosamax or Boniva, due to not being able to tolerate. Follows with Yenni Berger for routine skin checks. Had spot removed on his upper back recently. HM - Depression/Screening negative. Declines Shingles vaccine today. Has a Trust. Past medical history, appointments, medications, allergies reviewed. Previous Medical History PAST MEDICAL HISTORY Diagnosis Date Diverticulosis of colon (without mention of hemorrhage) History of transfusion Mitral stenosis Osteoporosis Polio Hx as a child. left arm weakness/atrophy. 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 AGE 4 Unspecified hypothyroidism Previous Surgical History PAST SURGICAL HISTORY Procedure Laterality Date COLONOSCOPY FLX DX W/COLLJ SPEC WHEN PFRMD 07/31/2001 Colonoscopy COLONOSCOPY FLX DX W/COLLJ SPEC WHEN PFRMD 12/28/2007 Colonoscopy COLONOSCOPY FLX DX W/COLLJ SPEC WHEN PFRMD 03/07/2014 Colonoscopy COLONOSCOPY FLX DX W/COLLJ SPEC WHEN PFRMD 03/10/2017 no repeat needed COLONOSCOPY FLX DX W/COLLJ SPEC WHEN PFRMD 11/21/2020 HEART SURGERY HX I/D PERIANAL ABSCESS, SUPERFICIAL 03/23/2012 Right anterior perianal abscess PAST SURGICAL HISTORY OF Hemorrhoidectomy PAST SURGICAL HISTORY OF right rotator cuff REPLACEMENT MITRAL VALVE W/CARDIOPULMONARY BYP 2013 Mitral valve replacement SURG TX ANAL FISTULA INTERSPHINCTERIC 04/09/2012 TONSILLECTOMY PRIMARY/SECONDARY Tonsillectomy Family History FAMILY HISTORY Problem Relation Age of Onset Colon Cancer Father Osteoporosis Mother Ischemic Heart Disease Sister d. 65 during CABG. other (Mitral valve disease) Sister rheumatic fever Hx. Patient Allergies ALLERGIES Allergen Reactions Alendronate Unknown Fosamax [Alendronat* Intolerance musculoskeletal pain Current Medications Current Outpatient Medications on File Prior to Visit Medication Sig levothyroxine (SYNTHROID) 75 mcg tablet Take one pill daily for 7 days/week triamcinolone acetonide (KENALOG) 0.1 % cream Apply to affected area two times a day. aspirin, enteric coated (ASPIRIN, ENTERIC COATED) 325 mg EC tablet Take 1 tablet by mouth once daily. therapeutic multivitamin tablet Take 1 tablet by mouth daily with breakfast. No current facility-administered medications on file prior to visit. Social History Social History Tobacco Use Smoking status: Never Smokeless tobacco: Never Vaping Use Vaping status: Never Used Substance Use Topics Alcohol use: No Drug use: No EXAM: BP 118/68 (BP Site: Right Arm, BP Position: Sitting, BP Cuff Size: Regular Adult) Pulse 72 Resp 18 Wt 67 kg (147 lb 11.3 oz) BMI 23.84 kg/m? General Appearance: Well appearing, alert, in no acute distress, well-hydrated, well nourished.. Neck: Supple, no adenopathy; thyroid symmetric, normal size, no bruits. Lungs: Lungs clear to auscultation. No wheezing, rhonchi, rales.. Heart: RRR without murmur, gallop, or rubs. No ectopy. Extremities: Denies any lower leg edema. Health Maintenance List Shingrix Vaccine(2 of 3) due on 10/14/2014 Advance Directive Discussion due on 05/26/2024 Depression Screening due on 10/02/2024 Anxiety Screening due on 10/02/2024 RSV Vaccine(1 - 1-dose 75+ series) due on 04/06/2025 Covid-19 Vaccine( season) due on 04/06/2025 DTaP,Tdap,Td Vaccine(8 - Td or Tdap) due on 05/02/2025 Diabetes Screening due on 10/02/2027 Influenza Vaccine Completed Pneumococcal Vaccine: 50+ Completed Data reviewed Appointment on 10/01/2024 Component Date Value Protein, Total 10/01/2024 7.0 Albumin 10/01/2024 3.9 Calcium, Total 10/01/2024 8.9 Bilirubin, Total 10/01/2024 0.3 Alkaline Phosphatase (more content not included)...[facility]04-07-2025 Telephone encounter Note* Telephone Encounter - Jagruti Tidwell RN - 08/30/2024 11:25 AM EDT Chitra with [employer] Referrals calls to request a retro referral to dermatology because payment has beendenied for visit as patient didn't have a referral sent to dermatology prior to visit on August 03, 2024. Patient has a referral from 07/08/2024 for dermatology prior to actual OV. Faxed to [phone] [facility]. Provider Line [phone] for additional questions. Nothing further needed at this time. Notified office. Closing TE. Jagruti Tidwell RN [facility]04-07-[facility]25 Miscellaneous Notes* Telephone Encounter - Jagruti Tidwell RN - 08/30/2024 11:25 AM EDT Chitra with [employer] Referrals calls to request a retro referral to dermatology because payment has beendenied for visit as patient didn't have a referral sent to dermatology prior to visit on August 03, 2024. Patient has a referral from 07/08/2024 for dermatology prior to actual OV. Faxed to [phone] [facility]. Provider Line [phone] for additional questions. Nothing further needed at this time. Notified office. Closing TE. Jagruti Tidwell RN documented in this encounterOhio[facility]03-12-2025 Telephone encounter Note * Telephone Encounter - Tyson Kyle APRN.CNP - 08/04/2024 1:58 PM EDT The following approved medication requests have been transmitted electronically. Requested Prescriptions Pending Prescriptions Disp Refills levothyroxine (SYNTHROID) 75 mcg tablet 90 tablet 3 Sig: Take one pill daily for 7 days/week Tsyon Kyle APRN.CNP [facility]03-12-2025 Miscellaneous Notes* Telephone Encounter - Tyson Kyle APRN.CNP - 08/04/2024 1:58 PM EDT The following approved medication requests have been transmitted electronically. Requested Prescriptions Pending Prescriptions Disp Refills levothyroxine (SYNTHROID) 75 mcg tablet 90 tablet 3 Sig: Take one pill daily for 7 days/week Tyson Kyle APRN.CNP * Telephone Encounter - Desire Contreras - 08/04/2024 12:07 PM EDT Prescription Refill Information The patient has been identified by name and date of : Yes Caregiver verified no other encounters exist for this prescription request: Yes Caregiver confirmed with patient/requestor that no other refills are due, in the near future, with this provider at this time: Yes The last office visit in the department: Does the patient have a future office visit with this provider/department: Yes Requested Prescriptions Pending Prescriptions Disp Refills levothyroxine (SYNTHROID) 75 mcg tablet 90 tablet 3 Sig: Take one pill daily for 7 days/week Desire Chaparro August 04, 2024 12:07 PM documented in this encounterOhio[facility]03-12-2025 Telephone encounter Note * Telephone Encounter - Desire Contreras - 08/04/2024 12:07 PM EDT Prescription Refill Information The patient has been identified by name and date of : Yes Caregiver verified no other encounters exist for this prescription request: Yes Caregiver confirmed with patient/requestor that no other refills are due, in the near future, with this provider at this time: Yes The last office visit in the department: Does the patient have a future office visit with this provider/department: Yes Requested Prescriptions Pending Prescriptions Disp Refills levothyroxine (SYNTHROID) 75 mcg tablet 90 tablet 3 Sig: Take one pill daily for 7 days/week Desire Chaparro August 04, 2024 12:07 PM [facility] NoteHNO ID: [id number] Author: WINIFRED VALLEJO MD Service: ? Author Type: Physician Type: Progress Notes Filed: 07/21/2024 10:31 Note Text: Heart[facility] Vascular [facility] Thoracic [facility] Department of Cardiovascular Medicine SECTION OF CLINICAL CARDIOLOGY OUTPATIENT VISIT DATE July 21, 2024 OUTPATIENT VISIT TYPE ESTABLISHED PRIMARY CARE PHYSICIAN: Jesus Taylor [address] [place] [address] REFERRING PHYSICIAN: Lalita Perkins [address] [facility] [address] CHIEF COMPLAINT: Routine follow-up HISTORY OF PRESENT ILLNESS: Mr. Castillo is a 88 year old male who presents today for a cardiovascular medicine follow-up visit. Patient had undergone a [id number]-[id number]-[id number] transcatheter mitral valve replacement (Luisa TMVR) with a 29 mm Deric 3 Ultra valve, which was post-dilated with a 28 mm True balloon, and alcohol ablation of the S2 branch. Post-ablation, the left ventricular outflow tract gradient was reduced by approximately 5 mmHg. Post procedure he suffered from complete heart block and underwent permanent pacemaker implantation. Since his discharge the patient has had no symptoms of shortness of breath, he remains extremely active. He is on a full dose aspirin and on no diuretics. He is followed up locally. He had undergone an echo earlier in May 2024 with no evidence of valvular dysfunction. He denies chest pain, shortness of breath, orthopnea, cough, edema, palpitations, PND, lightheadedness or syncope. PAST CARDIAC HISTORY: PAST MEDICAL HISTORY Diagnosis Date Diverticulosis of colon (without mention of hemorrhage) History of transfusion Mitral stenosis Osteoporosis Polio Hx as a child. left arm weakness/atrophy. 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 AGE 4 Unspecified hypothyroidism PAST SURGICAL HISTORY Procedure Laterality Date COLONOSCOPY FLX DX W/COLLJ SPEC WHEN PFRMD 07/31/2001 Colonoscopy COLONOSCOPY FLX DX W/COLLJ SPEC WHEN PFRMD 12/28/2007 Colonoscopy COLONOSCOPY FLX DX W/COLLJ SPEC WHEN PFRMD 03/07/2014 Colonoscopy COLONOSCOPY FLX DX W/COLLJ SPEC WHEN PFRMD 03/10/2017 no repeat needed COLONOSCOPY FLX DX W/COLLJ SPEC WHEN PFRMD 11/21/2020 HEART SURGERY HX I/D PERIANAL ABSCESS, SUPERFICIAL 03/23/2012 Right anterior perianal abscess PAST SURGICAL HISTORY OF Hemorrhoidectomy PAST SURGICAL HISTORY OF right rotator cuff REPLACEMENT MITRAL VALVE W/CARDIOPULMONARY BYP 2013 Mitral valve replacement SURG TX ANAL FISTULA INTERSPHINCTERIC 04/09/2012 TONSILLECTOMY PRIMARY/SECONDARY Tonsillectomy SOCIAL HISTORY Social History Tobacco Use Smoking status: Never Smokeless tobacco: Never Vaping Use Vaping status: Never Used Substance Use Topics Alcohol use: No Drug use: No FAMILY HISTORY Problem Relation Age of Onset Colon Cancer Father Osteoporosis Mother Ischemic Heart Disease Sister d. 65 during CABG. other (Mitral valve disease) Sister rheumatic fever Hx. Patient-Entered Questionnaire Scores Sleep Duration Level: N/A ALLERGIES: ALLERGIES Allergen Reactions Alendronate Unknown Fosamax [Alendronat* Intolerance musculoskeletal pain MEDICATIONS: triamcinolone acetonide (KENALOG) 0.1 % cream Apply to affected area two times a day. aspirin, enteric coated (ASPIRIN, ENTERIC COATED) 325 mg EC tablet Take 1 tablet by mouth once daily. levothyroxine (SYNTHROID) 75 mcg tablet Take one pill daily for 7 days/week therapeutic multivitamin tablet Take 1 tablet by mouth daily with breakfast. REVIEW OF SYSTEMS: PHYSICAL EXAMINATION: BP 112/62 (BP Site: Left Arm, BP Position: Sitting, BP Cuff Size: Large Adult) Pulse 84 Ht 167.6 cm (5' 6) Wt 64.9 kg (143 lb) SpO2 98% BMI 23.08 kg/m? General: Well appearing, in no acute distress. Skin: No clubbing, no cyanosis. Eyes: Extra ocular movements intact Oropharynx: Teeth in good repair. Neck: No jugular venous distention, no carotid bruits, carotids have a normal upstroke, no palpable thyromegaly. Lungs: Clear to auscultation bilaterally, no wheezing or rhonchi. Heart: Regular rhythm, PMI not displaced, S1, S2 normal, no S3, no S4, no heaves, no rub and no murmur. Abdomen: Soft, nontender, bowel sounds normal, no palpable organomegaly, no bruits. Extremities: No peripheral edema . Grade 2/4 distal pulses bilaterally. Neuro: Oriented to person, place and time, alert, cooperative, gait coordinated. CARDIOVASCULAR MEDICINE TESTING: Last ECHO Result Conclusion ECHO Collected: 01/21/2024 10:51 AM (Final result) Impression: CONCLUSIONS: - Technically difficult exam due to body habitus. - Exam indication: S/P TMVR, LVOT gradients - Left ventricular systolic function is normal. Left ventricular diastolic function was not evaluated due to mitral valve surgery. - The right ventricle is normal in size. Righ (more content not included)... [facility]02-26-[facility] History of Present illness Narrative* Winifred Vallejo MD - 07/21/2024 9:46 AM EST Images from the original note were not included. Heart, Vascular and Thoracic [facility] Department of Cardiovascular Medicine SECTION OF CLINICAL CARDIOLOGY OUTPATIENT VISIT DATE July 21, 2024 OUTPATIENT VISIT TYPE ESTABLISHED PRIMARY CARE PHYSICIAN: Jesus Taylor [address] [place] [address] REFERRING PHYSICIAN: Lalita Perkins [address] [facility] [address] CHIEF COMPLAINT: Routine follow-up HISTORY OF PRESENT ILLNESS: Mr. Castillo is a 88 year old male who presents today for a cardiovascular medicine follow-up visit. Patient had undergone a [id number]-[id number] transcatheter mitral valve replacement (Luisa TMVR) with a 29 mm Deric 3 Ultra valve, which was post- dilated with a 28 mm True balloon, and alcohol ablation of the S2 branch. Post- ablation, the left ventricular outflow tract gradient was reduced by approximately 5mmHg. Post procedure he suffered from complete heart block and underwent permanent pacemaker implantation. Since his discharge the patient has had no symptoms of shortness of breath, he remains extremely active. He is on a full dose aspirin and on no diuretics. He is followed up locally. He had unde rgone an echo earlier in May 2024 with no evidence of valvular dysfunction. He denies chest pain, shortness of breath, orthopnea, cough, edema, palpitations, PND, lightheadedness or syncope. PAST CARDIAC HISTORY: PAST MEDICAL HISTORY Diagnosis Date Diverticulosis of colon (without mention of hemorrhage) History of transfusion Mitral stenosis Osteoporosis Polio Hx as a child. left arm weakness/atrophy. 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 AGE 4 Unspecified hypothyroidism PAST SURGICAL HISTORY Procedure Laterality Date COLONOSCOPY FLX DX W/COLLJ SPEC WHEN PFRMD 07/31/2001 Colonoscopy COLONOSCOPY FLX DX W/COLLJ SPEC WHEN PFRMD 12/28/2007 Colonoscopy COLONOSCOPY FLX DX W/COLLJ SPEC WHEN PFRMD 03/07/2014 Colonoscopy COLONOSCOPY FLX DX W/COLLJ SPEC WHEN PFRMD 03/10/2017 no repeat needed COLONOSCOPY FLX DX W/COLLJ SPEC WHEN PFRMD 11/21/2020 HEART SURGERY HX I/D PERIANAL ABSCESS, SUPERFICIAL 03/23/2012 Right anterior perianal abscess PAST SURGICAL HISTORY OF Hemorrhoidectomy PAST SURGICAL HISTORY OF right rotator cuff REPLACEMENT MITRAL VALVE W/CARDIOPULMONARY BYP 2013 Mitral valve replacement SURG TX ANAL FISTULA INTERSPHINCTERIC 04/09/2012 TONSILLECTOMY PRIMARY/SECONDARY <AGE 14 Tonsillectomy SOCIAL HISTORY Social History Tobacco Use Smoking status: Never Smokeless tobacco: Never Vaping Use Vaping status: Never Used Substance Use Topics Alcohol use: No Drug use: No FAMILY HISTORY Problem Relation Age of Onset Colon Cancer Father Osteoporosis Mother Ischemic Heart Disease Sister d. 65 during CABG. other (Mitral valve disease) Sister rheumatic fever Hx. Patient-Entered Questionnaire Scores Sleep Duration Level: N/A ALLERGIES: ALLERGIES Allergen Reactions Alendronate Unknown Fosamax [Alendronat* Intolerance musculoskeletal pain MEDICATIONS: triamcinolone acetonide (KENALOG) 0.1 % cream Apply to affected area two times a day. aspirin, enteric coated (ASPIRIN, ENTERIC COATED) 325 mg EC tablet Take 1 tablet by mouth once daily. levothyroxine (SYNTHROID) 75 mcg tablet Take one pill daily for 7 days/week therapeutic multivitamin tablet Take 1 tablet by mouth daily with breakfast. REVIEW OF SYSTEMS: PHYSICAL EXAMINATION: BP 112/62 (BP Site: Left Arm, BP Position: Sitting, BP Cuff Size: Large Adult) Pulse 84 Ht 167.6 cm (5' 6) Wt 64.9 kg (143 lb) SpO2 98% BMI 23.08 kg/m General: Well appearing, in no acute distress. Skin: No clubbing, no cyanosis. Eyes: Extra ocular movements intact Oropharynx: Teeth in good repair. Neck: No jugular venous distention, no carotid bruits, carotids have a normal upstroke, no palpablethyromegaly. Lungs: Clear to auscultation bilaterally, no wheezing or rhonchi. Heart: Regular rhythm, PMI not displaced, S1, S2 normal, no S3, no S4, no heaves, no rub and no murmur. Abdomen: Soft, nontender, bowel sounds normal, no palpable organomegaly, no bruits. Extremities: No peripheral edema . Grade 2/4 distal pulses bilaterally. Neuro: Oriented to person, place and time, alert, cooperative, gait coordinated. CARDIOVASCULAR MEDICINE TESTING: Last ECHO Result Conclusion ECHO Collected: 01/21/2024 10:51 AM (Final result) Impression: CONCLUSIONS: - Technically difficult exam due to body habitus. - Exam indication: S/P TMVR, LVOT gradients - Left ventricular systolic function is normal. Left ventricular diastolic function was not evaluated due to mitral valve surgery. - The right ventricle is normal in size. Right ventricular systolic function is normal. - Post mitral valve replacement. Deric 3 Ultra prosthetic mitral valve (size #29). There is trace mitral valve regurgitation. The peak gradient is 14 mmHg and the mean gradient is 5 mmHg. MV gradients obtained at 70 bpm. - LVOT flow acceleration with associated fixed LVOT gradient of ~peak 44mmHg/mean 30 mmHg. Aortic valve appears to be opening reasonably well (clip 10). - Exam was compared with the prior CC echocardiographic exam performed on 01/20/2024 (OR). First post-TMVR TTE. Fixed LVOT obstruction sugested as above, previously noted on intraop CAMILA 01/20/24. * * * Final * * * Last CAMILA Result Conclusion ECHO TRANSESOPHAGEAL Collected: 01/12/2024 7:37 AM (Final result) Impression: CONCLUSIONS: - Exam indication: Re-evaluation of known valvular heart disease with change in clinical status - EF not reported due to limited echo interrogation - The left atrial cavity is severely dilated. - Post mitral valve replacement. Андрей-Pickett prosthetic mitral valve (size #29). Prosthetic MV leaflets visually appear very restricted. Degree of MR severity could not be fully evaluated. - Study was terminated early due to marginal hemodynamics and patient tolerance of the procedure. Patient's blood pressure noted to drop with minimal sedation. Able to pass the CAMILA probe but O2 sat was persistently lower, patient became more tachycardic and uncomfortable. Given inability to give more sedation the study was aborted. 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 - Exam was compared with the prior echocardiographic exam (TTE) performed on 01/09/24; very limited study today. 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 Otherwise Normal Thoracic and Abdominal Aortic Anatomy. MITRAL VALVE: . MVR with bioprosthetic valve, valve ring measuring 2.9 cm. Hypodensity along the basal ring, possible pannus/thrombus -Moderate calcification. Moderate bilateral pleural effusions with adjacent atelectasis Relay Dispatcher: DERIAN Transcribe Date/Time: Jan 13 2024 11:05A Dictated by : TACHO HART MD This examination was interpreted and the report reviewed and electronically signed by: TACHO HART MD on Jan 13 2024 11:26AM EST 05/27/2024 Reason For Study: TMVR Procedure This was a 2D Doppler, Color Flow transthoracic echocardiogram. Exam performed in department. Left Ventricle Normal LV size. Moderate concentric left ventricular hypertrophy. The left ventricular ejection fraction is 55 %. Right Ventricle Normal RV size. ICD or pacer leads identified within the right ventricle. The right ventricle is normal in size, function, and thickness. Atria The left atrium is severely enlarged. Normal right atrium. ICD or pacer leads identified within the right atrium. Mitral Valve Peak transmitral valve gradient 13 mmHg. Mean transmitral valve gradient 7 mmHg.Stable appearing bioprosthetic mitral valve apparatus. Tricuspid Valve Normal tricuspid valve. Mild (1+) tricuspid valve insufficiency. Pulmonary artery systolic pressure is 37 mmHg. Aortic Valve Normal aortic valve. Trisinus/trileaflet aortic valve. Pulmonic Valve Normal pulmonic valve. MMode/2D Measurements & Calculations LVIDd: 3.3 cm IVSd: 1.5 cm LAV(MOD-bp): 113.6 ml LVIDs: 2.5 cm LVPWd: 1.6 cm LAV(MOD-bp) Indexed: 65.3 ml/m2 RVDd: 3.9 cm FS: 23.9 % LAV(MOD-sp2): 89.7 ml LAV(MOD-sp4): 126.1 ml _ RVOT diam: 2.3 cm LVAd ap4: 21.0 cm2 SV(MOD-sp4): 31.6 ml LVLd ap4: 6.4 cm SI(MOD-sp4): 18.2 ml/m2 EDV(MOD-sp4): 60.8 ml EDV(sp4-el): 58.5 ml LVAs ap4: 13.3 cm2 LVLs ap4: 5.5 cm ESV(MOD-sp4): 29.2 ml ESV(sp4-el): 27.5 ml EF(MOD-sp4): 52.0 % EF(sp4-el): 53.0 % _ SV(sp4-el): 31.0 ml LA A4 area: 30.2 cm2 LA dimension(2D): 5.2 cm _ RA A4 area: 12.9 cm2 Time Measurements MV dec time: 0.27 sec Doppler Measurements & Calculations MV E max abhinav: 139.9 cm/sec Lat Peak E' Abhinav: 7.3 cm/sec Med Peak E' Abhinav: 7.7 cm/sec MV A max abhinav: 148.7 cm/sec E/E' lat: 19.1 E/E' med: 18.1 MV E/A: 0.94 _ MV V2 max: 183.2 cm/sec MV dec slope: 518.9 cm/sec2 Ao V2 max: 215.3 cm/sec MV max P.4 mmHg Ao max P.6 mmHg MV V2 mean: 124.9 cm/sec Ao V2 mean: 155.8 cm/sec MV mean P.2 mmHg Ao mean P.1 mmHg MV V2 VTI: 64.6 cm Ao V2 VTI: 48.8 cm AV (velocity ratio): 0.99 _ LV V1 max: 197.3 cm/sec PA V2 max: 98.2 cm/sec SV(RVOT): 50.0ml LV V1 max P.6 mmHg PA V2 mean: 70.7 cm/sec LV V1 mean P.0 mmHg PA mean PG (full): 1.4 mmHg LV V1 mean: 151.6 cm/sec LV V1 VTI: 48.1 cm _ TR max abhinav: 289.3 cm/sec TR max P.5 mmHg ECHO/Echo Complete Interpretation Summary Normal LV size. Moderate concentric left ventricular hypertrophy. The left ventricular ejection fraction is 55 %. The left atrium is severely enlarged. Stable appearing bioprosthetic mitral valve apparatus. Mean transmitral valve gradient 7 mmHg. The gradients across the mitral valve appeared to be better at this time. Ordering Physician: Shantel Shepard Referring Physician: Shantel Shepard Performed By: Ethel Spaulding RCS 05/27/24 1214 Date _ Schuyler Angel MD CC: Dr. Jesus Taylor MD; ELICEO Peralta ~ Date Dictated: 05/27/24854 Date Transcribed: 05/27/241213 Relay Dispatcher: Signed I have personally reviewed the Echocardiogram report, no images available. IMPRESSION: Mr. Castillo is a 88 year old male with history of rheumatic fever with history of mitral stenosis, status post mitral valve replacement with Андрей Pickett number 29 mm in 2013, pulmonary hypertension, tricuspid insufficiency, paroxysmal atrial fibrillation who presented with shortness of breath and subsequently underwent Luisa TMVR with a deric 3 ultra valve # 29 mm (January 20, 2024), complicated with complete heart block who presents for routine follow-up 1. History of mitral stenosis status post mitral valve replacement (2013), with Luisa TMVR (December 2023) 2. 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 Remote history of atrial fibrillation not on anticoagulation with no evidence of recurrence on his device PLAN AND RECOMMENDATIONS: Images are not available for review of his current echo. Patient will continue to follow locally and return as needed. CONTACT INFORMATION: Winifred Vallejo MD Section of Clinical Cardiology [facility] [place] Department of Cardiovascular Medicine Heart and Vascular [place] Desk [place] [address] Office Office Appointments: [phone] documented in this encounterOhio[facility]02-13-2025 Instructions* Patient Instructions* Codie Mann APRN.[facility] - 07/08/2024 9:53 AM EST Recommend consult with [facility], in [place] Recommend fragrance free health and beauty products. Recommend Dove sensitive soap for body and free and clear laundry soap. Monitor skin lesion on right leg, try not itch, if you notice increase redness, swelling start the doxycycline (antibiotic) Use steroid cream twice daily for 10 days for itching Follow up as needed. documented in this encounterOhio[facility]02-13-2025 History of Present illness Narrative* Codie Mann APRN.CNP - 07/08/2024 9:40 AM EST This is a 88 year old male who presents today with: Patient presents with: Acute Visit: Itching all over body HISTORY OF PRESENT ILLNESS: Ruperto Castillo is a 88 year old male. Patient presents with: Acute Visit: Itching all over body Here in the office for allover body itching. Saw PCP on 06/18/2024 and was diagnosed with cellulitis on his right leg, treated with doxycycline and prednisone 12 days. Medication was helpful for itching but never improved the actual lesions. Lesions will seep, clear discharge. This has been on going for years but worse recently. Using Tide laundry, using bar soap from bath and body works, applieslotion from bath and body works as well. No fever or chills. PAST MEDICAL HISTORY: PAST MEDICAL HISTORY Diagnosis Date Diverticulosis of colon (without mention of hemorrhage) History of transfusion Mitral stenosis Osteoporosis Polio Hx as a child. left arm weakness/atrophy. 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 AGE 4 Unspecified hypothyroidism PAST SURGICAL HISTORY Procedure Laterality Date COLONOSCOPY FLX DX W/COLLJ SPEC WHEN PFRMD 07/31/2001 Colonoscopy COLONOSCOPY FLX DX W/COLLJ SPEC WHEN PFRMD 12/28/2007 Colonoscopy COLONOSCOPY FLX DX W/COLLJ SPEC WHEN PFRMD 03/07/2014 Colonoscopy COLONOSCOPY FLX DX W/COLLJ SPEC WHEN PFRMD 03/10/2017 no repeat needed COLONOSCOPY FLX DX W/COLLJ SPEC WHEN PFRMD 11/21/2020 HEART SURGERY HX I/D PERIANAL ABSCESS, SUPERFICIAL 03/23/2012 Right anterior perianal abscess PAST SURGICAL HISTORY OF Hemorrhoidectomy PAST SURGICAL HISTORY OF right rotator cuff REPLACEMENT MITRAL VALVE W/CARDIOPULMONARY BYP 2013 Mitral valve replacement SURG TX ANAL FISTULA INTERSPHINCTERIC 04/09/2012 TONSILLECTOMY PRIMARY/SECONDARY <AGE 14 Tonsillectomy ALLERGIES Alendronate and Fosamax [Alendronate Sodium] MEDICATIONS Current Outpatient Medications Medication Sig aspirin, enteric coated (ASPIRIN, ENTERIC COATED) 325 mg EC tablet Take 1 tablet by mouth once daily. levothyroxine (SYNTHROID) 75 mcg tablet Take one pill daily for 7 days/week therapeutic multivitamin tablet Take 1 tablet by mouth daily with breakfast. No current facility-administered medications for this visit. FAMILY HISTORY Problem Relation Age of Onset Colon Cancer Father Osteoporosis Mother Ischemic Heart Disease Sister d. 65 during CABG. other (Mitral valve disease) Sister rheumatic fever Hx. Social History Tobacco Use Smoking status: Never Smokeless tobacco: Never Vaping Use Vaping status: Never Used Substance Use Topics Alcohol use: No Drug use: No REVIEW OF SYSTEMS GENERAL: No weight loss, malaise or fevers/chills HEENT: Negative for frequent or significant headaches, No changes in hearing or vision. NECK: Negative for lumps, goiter, pain and significant neck swelling RESPIRATORY: Negative for cough, hemoptysis, wheezing, dyspnea or shortness of breath CARDIOVASCULAR: Negative for chest pain, leg swelling, orthopnea, or palpitations GI: No nausea, vomiting, or diarrhea/constipation. No hematochezia/melena. No heartburn or reflux symptoms. : No history of dysuria, frequency or incontinence MUSCULOSKELETAL: Negative for joint pain or swelling. SKIN: + Skin lesions/itching ENDOCRINE: Negative for cold or heat intolerance, polyuria, polydipsia and goiter NEURO: No history of headaches, syncope, paralysis, seizures or tremors MOOD: Negative for depression, anxiety, or suicidal ideation. EXAM: BP 110/60 Pulse 74 Resp 16 Wt 66.8 kg (147 lb 4.3 oz) SpO2 98% BMI 23.77 kg/m PHYSICAL EXAM: General Appearance: Well appearing, alert, in no acute distress, well-hydrated, well nourished. Skin: Follicular, crusty skin lesions noted over whole body, mild erythema. Healing skin lesion noted on to right lower leg, mild increased erythema and warmth to touch. No open sores. Head: Normocephalic, no masses, lesions, tenderness or abnormalities. Eyes: Anicteric sclera. Extraocular movements are intact. Extremities: No deformities, edema, skin discoloration, clubbing or cyanosis. Good capillary refill. Peripheral Pulses: Normal, Capillary refill <2secs, strong peripheral pulses, Pulses palpable. Neurologic: Gait normal. Sensation grossly intact. ASSESSMENT/PLAN: 1. Contact dermatitis, unspecified contact dermatitis type, unspecified trigger - ICD9: 692.9, ICD10: L25.9 (primary diagnosis) - Topical steriod tx with Rx for steriod cream/ointment- see orders - Recommend using fragrance free health and beauty products. As well as low fragrance laundry soaps. - Due to severity of rash recommend consult with dermatology for evaluation. Based off history and symptoms consistent with follicular eczema. - discussed skin care of rash - follow up if symptoms persist or worsen. - CONSULT TO DERMATOLOGY - TRIAMCINOLONE ACETONIDE 0.1 % TOPICAL CREAM 2. 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 3. Cellulitis of skin - ICD9: 682.9, ICD10: L03.90 - Instructed to monitor skin lesion on right lower leg, any increased redness, warmth, or seeping instructed to start additional doxycycline. - Keep skin clean and dry. Try to avoid scratching - DOXYCYCLINE HYCLATE 100 MG CAPSULE Follow-up as needed. Discussed treatment plan and patient voices understanding. Patient's questions answered appropriately. Medications and potential side effects were discussed and patient voices understanding. Codie Mann APRN.CNP This note was partially generated using Timbre voice recognition system. Note was reviewed for accuracy. There may be minor misspellings or grammar miscues with Timbre voice recognition. documented in this encounterOhio[facility]02-13-2025 NoteHNO ID: [id number] Author: CODIE MANN APRN.CNP Service: ? Author Type: Nurse Practitioner Type: Progress Notes Filed: 07/08/2024 13:15 Note Text: This is a 88 year old male who presents today with: Patient presents with: Acute Visit: Itching all over body HISTORY OF PRESENT ILLNESS: Ruperto Castillo is a 88 year old male. Patient presents with: Acute Visit: Itching all over body Here in the office for allover body itching. Saw PCP on 06/18/2024 and was diagnosed with cellulitis on his right leg, treated with doxycycline and prednisone 12 days. Medication was helpful for itching but never improved the actual lesions. Lesions will seep, clear discharge. This has been on going for years but worse recently. Using Tide laundry, using bar soap from bath and body works, applies lotion from bath and body works as well. No fever or chills. PAST MEDICAL HISTORY: PAST MEDICAL HISTORY Diagnosis Date Diverticulosis of colon (without mention of hemorrhage) History of transfusion Mitral stenosis Osteoporosis Polio Hx as a child. left arm weakness/atrophy. 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 AGE 4 Unspecified hypothyroidism PAST SURGICAL HISTORY Procedure Laterality Date COLONOSCOPY FLX DX W/COLLJ SPEC WHEN PFRMD 07/31/2001 Colonoscopy COLONOSCOPY FLX DX W/COLLJ SPEC WHEN PFRMD 12/28/2007 Colonoscopy COLONOSCOPY FLX DX W/COLLJ SPEC WHEN PFRMD 03/07/2014 Colonoscopy COLONOSCOPY FLX DX W/COLLJ SPEC WHEN PFRMD 03/10/2017 no repeat needed COLONOSCOPY FLX DX W/COLLJ SPEC WHEN PFRMD 11/21/2020 HEART SURGERY HX I/D PERIANAL ABSCESS, SUPERFICIAL 03/23/2012 Right anterior perianal abscess PAST SURGICAL HISTORY OF Hemorrhoidectomy PAST SURGICAL HISTORY OF right rotator cuff REPLACEMENT MITRAL VALVE W/CARDIOPULMONARY BYP 2013 Mitral valve replacement SURG TX ANAL FISTULA INTERSPHINCTERIC 04/09/2012 TONSILLECTOMY PRIMARY/SECONDARY Tonsillectomy ALLERGIES Alendronate and Fosamax [Alendronate Sodium] MEDICATIONS Current Outpatient Medications Medication Sig aspirin, enteric coated (ASPIRIN, ENTERIC COATED) 325 mg EC tablet Take 1 tablet by mouth once daily. levothyroxine (SYNTHROID) 75 mcg tablet Take one pill daily for 7 days/week therapeutic multivitamin tablet Take 1 tablet by mouth daily with breakfast. No current facility-administered medications for this visit. FAMILY HISTORY Problem Relation Age of Onset Colon Cancer Father Osteoporosis Mother Ischemic Heart Disease Sister d. 65 during CABG. other (Mitral valve disease) Sister rheumatic fever Hx. Social History Tobacco Use Smoking status: Never Smokeless tobacco: Never Vaping Use Vaping status: Never Used Substance Use Topics Alcohol use: No Drug use: No REVIEW OF SYSTEMS GENERAL: No weight loss, malaise or fevers/chills HEENT: Negative for frequent or significant headaches, No changes in hearing or vision. NECK: Negative for lumps, goiter, pain and significant neck swelling RESPIRATORY: Negative for cough, hemoptysis, wheezing, dyspnea or shortness of breath CARDIOVASCULAR: Negative for chest pain, leg swelling, orthopnea, or palpitations GI: No nausea, vomiting, or diarrhea/constipation. No hematochezia/melena. No heartburn or reflux symptoms. : No history of dysuria, frequency or incontinence MUSCULOSKELETAL: Negative for joint pain or swelling. SKIN: + Skin lesions/itching ENDOCRINE: Negative for cold or heat intolerance, polyuria, polydipsia and goiter NEURO: No history of headaches, syncope, paralysis, seizures or tremors MOOD: Negative for depression, anxiety, or suicidal ideation. EXAM: BP 110/60 Pulse 74 Resp 16 Wt 66.8 kg (147 lb 4.3 oz) SpO2 98% BMI 23.77 kg/m? PHYSICAL EXAM: General Appearance: Well appearing, alert, in no acute distress, well-hydrated, well nourished. Skin: Follicular, crusty skin lesions noted over whole body, mild erythema. Healing skin lesion noted on to right lower leg, mild increased erythema and warmth to touch. No open sores. Head: Normocephalic, no masses, lesions, tenderness or abnormalities. Eyes: Anicteric sclera. Extraocular movements are intact. Extremities: No deformities, edema, skin discoloration, clubbing or cyanosis. Good capillary refill. Peripheral Pulses: Normal, Capillary refill <2secs, strong peripheral pulses, Pulses palpable. Neurologic: Gait normal. Sensation grossly intact. ASSESSMENT/PLAN: 1. Contact dermatitis, unspecified contact dermatitis type, unspecified trigger - ICD9: 692.9, ICD10: L25.9 (primary diagnosis) - Topical steriod tx with Rx for steriod cream/ointment- see orders - Recommend using fragrance free health and beauty products. As well as low fragrance laundry soaps. - Due to severity of rash recommend consult with dermatology for evaluation. Based off history and symptoms consistent with follicu (more content not included)...[facility]01-24-2025 History of Present illness Narrative* Jesus Taylor MD - 06/18/2024 8:40 AM EST Chief Complaint Skin issues HPI Ruperto Castillo is a 88 year old male who presents here today for sore on leg. Pt c/o rash area on the right leg that gets scabbed up and then oozes. Has some spots else where onthe body as well but the one on the leg is worse. He gets these in the winter, uses moisturizing lotion. The are on his righ leg has been oozing the last few days. CV: doing well, pacemaker functioning, follows with Cardiology. Past medical history, appointments, medications, allergies reviewed. Previous Medical History PAST MEDICAL HISTORY Diagnosis Date Diverticulosis of colon (without mention of hemorrhage) History of transfusion Mitral stenosis Osteoporosis Polio Hx as a child. left arm weakness/atrophy. 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 AGE 4 Unspecified hypothyroidism Previous Surgical History PAST SURGICAL HISTORY Procedure Laterality Date COLONOSCOPY FLX DX W/COLLJ SPEC WHEN PFRMD 07/31/2001 Colonoscopy COLONOSCOPY FLX DX W/COLLJ SPEC WHEN PFRMD 12/28/2007 Colonoscopy COLONOSCOPY FLX DX W/COLLJ SPEC WHEN PFRMD 03/07/2014 Colonoscopy COLONOSCOPY FLX DX W/COLLJ SPEC WHEN PFRMD 03/10/2017 no repeat needed COLONOSCOPY FLX DX W/COLLJ SPEC WHEN PFRMD 11/21/2020 HEART SURGERY HX I/D PERIANAL ABSCESS, SUPERFICIAL 03/23/2012 Right anterior perianal abscess PAST SURGICAL HISTORY OF Hemorrhoidectomy PAST SURGICAL HISTORY OF right rotator cuff REPLACEMENT MITRAL VALVE W/CARDIOPULMONARY BYP 2013 Mitral valve replacement SURG TX ANAL FISTULA INTERSPHINCTERIC 04/09/2012 TONSILLECTOMY PRIMARY/SECONDARY <AGE 14 Tonsillectomy Family History FAMILY HISTORY Problem Relation Age of Onset Colon Cancer Father Osteoporosis Mother Ischemic Heart Disease Sister d. 65 during CABG. other (Mitral valve disease) Sister rheumatic fever Hx. Patient Allergies ALLERGIES Allergen Reactions Alendronate Unknown Fosamax [Alendronat* Intolerance musculoskeletal pain Current Medications Current Outpatient Medications on File Prior to Visit Medication Sig aspirin, enteric coated (ASPIRIN, ENTERIC COATED) 325 mg EC tablet Take 1 tablet by mouth once daily. levothyroxine (SYNTHROID) 75 mcg tablet Take one pill daily for 7 days/week therapeutic multivitamin tablet Take 1 tablet by mouth daily with breakfast. No current facility-administered medications on file prior to visit. Social History Social History Tobacco Use Smoking status: Never Smokeless tobacco: Never Vaping Use Vaping status: Never Used Substance Use Topics Alcohol use: No Drug use: No EXAM: There were no vitals taken for this visit. General Appearance: Well appearing, alert, in no acute distress, well-hydrated, well nourished.. Skin: right lateral lower leg with 6x6 cm are of inflammation, erythema, oozing. Inflammatory area on right upper arm, abd, upper chest. Lungs: Lungs clear to auscultation. No wheezing, rhonchi, rales.. Heart: RRR without murmur, gallop, or rubs. No ectopy. Health Maintenance List Shingrix Vaccine(2 of 3) due on 10/14/2014 Advance Directive Discussion due on 05/26/2024 RSV Vaccine(1 - 1-dose 75+ series) due on 04/06/2025 Covid-19 Vaccine( - 2023- season) due on 04/06/2025 Depression Screening due on 10/02/2024 Anxiety Screening due on 10/02/2024 DTaP,Tdap,Td Vaccine(8 - Td or Tdap) due on 05/02/2025 Diabetes Screening due on 04/02/2027 Influenza Vaccine Completed Pneumococcal Vaccine: 50+ Completed Data reviewed none ASSESSMENT/PLAN: 1. Cellulitis of skin - ICD9: 682.9, ICD10: L03.90 (primary diagnosis) - with underlying eczema/inflammation - Begin treatment with doxycycline and prednisone for inflammation - DOXYCYCLINE HYCLATE 100 MG CAPSULE - PREDNISONE 10 MG TABLET 2. Hypertensive heart disease with heart failure (HCC) - ICD9: 402.91, 428.9, ICD10: I11.0 - Controlled - Continue current medications - Recommend home blood pressure monitoring, to bring results to next visit - Encouraged sodium restriction, DASH or Mediterranean diet - Recommend regular aerobic exercise 3. Complete heart block (HCC) - ICD9: 426.0, ICD10: I44.2 Pacemaker Follow with Cardiology Follow up prn Medical Decision Making: Problems: Low: Acute, uncomplicated illness or injury Risk: Moderate: Drug management Medical Decision Making Level: 3 - Low Jesus Taylor MD documented in this encounterOhio[facility]01-24-2025 NoteHNO ID: [id number] Author: JESUS TAYLOR MD Service: ? Author Type: Physician Type: Progress Notes Filed: 06/18/2024 08:54 Note Text: Chief Complaint Skin issues HPI Ruperto Castillo is a 88 year old male who presents here today for sore on leg. Pt c/o rash area on the right leg that gets scabbed up and then oozes. Has some spots else where on the body as well but the one on the leg is worse. He gets these in the winter, uses moisturizing lotion. The are on his righ leg has been oozing the last few days. CV: doing well, pacemaker functioning, follows with Cardiology. Past medical history, appointments, medications, allergies reviewed. Previous Medical History PAST MEDICAL HISTORY Diagnosis Date Diverticulosis of colon (without mention of hemorrhage) History of transfusion Mitral stenosis Osteoporosis Polio Hx as a child. left arm weakness/atrophy. 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 AGE 4 Unspecified hypothyroidism Previous Surgical History PAST SURGICAL HISTORY Procedure Laterality Date COLONOSCOPY FLX DX W/COLLJ SPEC WHEN PFRMD 07/31/2001 Colonoscopy COLONOSCOPY FLX DX W/COLLJ SPEC WHEN PFRMD 12/28/2007 Colonoscopy COLONOSCOPY FLX DX W/COLLJ SPEC WHEN PFRMD 03/07/2014 Colonoscopy COLONOSCOPY FLX DX W/COLLJ SPEC WHEN PFRMD 03/10/2017 no repeat needed COLONOSCOPY FLX DX W/COLLJ SPEC WHEN PFRMD 11/21/2020 HEART SURGERY HX I/D PERIANAL ABSCESS, SUPERFICIAL 03/23/2012 Right anterior perianal abscess PAST SURGICAL HISTORY OF Hemorrhoidectomy PAST SURGICAL HISTORY OF right rotator cuff REPLACEMENT MITRAL VALVE W/CARDIOPULMONARY BYP 2013 Mitral valve replacement SURG TX ANAL FISTULA INTERSPHINCTERIC 04/09/2012 TONSILLECTOMY PRIMARY/SECONDARY Tonsillectomy Family History FAMILY HISTORY Problem Relation Age of Onset Colon Cancer Father Osteoporosis Mother Ischemic Heart Disease Sister d. 65 during CABG. other (Mitral valve disease) Sister rheumatic fever Hx. Patient Allergies ALLERGIES Allergen Reactions Alendronate Unknown Fosamax [Alendronat* Intolerance musculoskeletal pain Current Medications Current Outpatient Medications on File Prior to Visit Medication Sig aspirin, enteric coated (ASPIRIN, ENTERIC COATED) 325 mg EC tablet Take 1 tablet by mouth once daily. levothyroxine (SYNTHROID) 75 mcg tablet Take one pill daily for 7 days/week therapeutic multivitamin tablet Take 1 tablet by mouth daily with breakfast. No current facility-administered medications on file prior to visit. Social History Social History Tobacco Use Smoking status: Never Smokeless tobacco: Never Vaping Use Vaping status: Never Used Substance Use Topics Alcohol use: No Drug use: No EXAM: There were no vitals taken for this visit. General Appearance: Well appearing, alert, in no acute distress, well-hydrated, well nourished.. Skin: right lateral lower leg with 6x6 cm are of inflammation, erythema, oozing. Inflammatory area on right upper arm, abd, upper chest. Lungs: Lungs clear to auscultation. No wheezing, rhonchi, rales.. Heart: RRR without murmur, gallop, or rubs. No ectopy. Health Maintenance List Shingrix Vaccine(2 of 3) due on 10/14/2014 Advance Directive Discussion due on 05/26/2024 RSV Vaccine(1 - 1-dose 75+ series) due on 04/06/2025 Covid-19 Vaccine( season) due on 04/06/2025 Depression Screening due on 10/02/2024 Anxiety Screening due on 10/02/2024 DTaP,Tdap,Td Vaccine(8 - Td or Tdap) due on 05/02/2025 Diabetes Screening due on 04/02/2027 Influenza Vaccine Completed Pneumococcal Vaccine: 50+ Completed Data reviewed none ASSESSMENT/PLAN: 1. Cellulitis of skin - ICD9: 682.9, ICD10: L03.90 (primary diagnosis) - with underlying eczema/inflammation - Begin treatment with doxycycline and prednisone for inflammation - DOXYCYCLINE HYCLATE 100 MG CAPSULE - PREDNISONE 10 MG TABLET 2. Hypertensive heart disease with heart failure (HCC) - ICD9: 402.91, 428.9, ICD10: I11.0 - Controlled - Continue current medications - Recommend home blood pressure monitoring, to bring results to next visit - Encouraged sodium restriction, DASH or Mediterranean diet - Recommend regular aerobic exercise 3. Complete heart block (HCC) - ICD9: 426.0, ICD10: I44.2 Pacemaker Follow with Cardiology Follow up prn Medical Decision Making: Problems: Low: Acute, uncomplicated illness or injury Risk: Moderate: Drug management Medical Decision Making Level: 3 - Low [facility] Inst[facility]* Patient Instructions* Danya Whitman MA - 04/06/2024 8:23 AM EST Can use over the counter Tylenol (first choice) or Ibuprofen for pain. documented in this encounter[facility] History of Present illness Narrative* Jesus Taylor MD - 04/06/2024 8:00 AM EST Chief Complaint Patient presents with: F/U 6 Month HPI Ruperto Castillo is a 88 year old male who presents here today for a 6 month follow up. Pt here today for his routine follow up. Thyroid - Stable on current regimen of Synthroid 75 mcg once daily. Denies any missed dosages. Has been referred to [facility] in the past, Dr. Casey. No longer following. Osteo - Taking Calcium and Vit D once daily. Was unable to tolerate Fosamax and Boniva in the past. Cardio - Has been seen recently due to hospital admissions x 2 due to CHF and having his valve replaced. Pt following with [facility] and [facility]. Pt overall doing well at this time. Denies any chest pain, sob, edema or dizziness. Denies any issues with sleeping. Was given order from [facility] to start Rehab. Pt reports he's not done cardiac rehab at this time. Had restrictions for 6 weeks, not lifting more than 10 lbs with his left arm. He's back to doing his normal activitieswith no issues, overall feeling well. Has Pacemaker checks through [facility]. HM - Denies having Adv Dir/Living Will. Check with insurance regarding Shingles vaccine. Wants flu vaccine. Declines Covid vaccine and RSV vaccine. Past medical history, appointments, medications, allergies reviewed. Previous Medical History PAST MEDICAL HISTORY Diagnosis Date Diverticulosis of colon (without mention of hemorrhage) History of transfusion Mitral stenosis Osteoporosis Polio Hx as a child. left arm weakness/atrophy. 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 AGE 4 Unspecified hypothyroidism Previous Surgical History PAST SURGICAL HISTORY Procedure Laterality Date COLONOSCOPY FLX DX W/COLLJ SPEC WHEN PFRMD 07/31/2001 Colonoscopy COLONOSCOPY FLX DX W/COLLJ SPEC WHEN PFRMD 12/28/2007 Colonoscopy COLONOSCOPY FLX DX W/COLLJ SPEC WHEN PFRMD 03/07/2014 Colonoscopy COLONOSCOPY FLX DX W/COLLJ SPEC WHEN PFRMD 03/10/2017 no repeat needed COLONOSCOPY FLX DX W/COLLJ SPEC WHEN PFRMD 11/21/2020 HEART SURGERY HX I/D PERIANAL ABSCESS, SUPERFICIAL 03/23/2012 Right anterior perianal abscess PAST SURGICAL HISTORY OF Hemorrhoidectomy PAST SURGICAL HISTORY OF right rotator cuff REPLACEMENT MITRAL VALVE W/CARDIOPULMONARY BYP 2013 Mitral valve replacement SURG TX ANAL FISTULA INTERSPHINCTERIC 04/09/2012 TONSILLECTOMY PRIMARY/SECONDARY <AGE 14 Tonsillectomy Family History FAMILY HISTORY Problem Relation Age of Onset Colon Cancer Father Osteoporosis Mother Ischemic Heart Disease Sister d. 65 during CABG. other (Mitral valve disease) Sister rheumatic fever Hx. Patient Allergies ALLERGIES Allergen Reactions Alendronate Unknown Fosamax [Alendronat* Intolerance musculoskeletal pain Current Medications Current Outpatient Medications on File Prior to Visit Medication Sig aspirin, enteric coated (ASPIRIN, ENTERIC COATED) 325 mg EC tablet Take 1 tablet by mouth once daily. levothyroxine (SYNTHROID) 75 mcg tablet Take one pill daily for 7 days/week therapeutic multivitamin tablet Take 1 tablet by mouth daily with breakfast. No current facility-administered medications on file prior to visit. Social History Social History Tobacco Use Smoking status: Never Smokeless tobacco: Never Vaping Use Vaping status: Never Used Substance Use Topics Alcohol use: No Drug use: No EXAM: BP 124/68 (BP Site: Left Arm, BP Position: Sitting, BP Cuff Size: Regular Adult) Pulse 76 Resp 18 Wt 64.4 kg (141 lb 15.6 oz) BMI 22.92 kg/m General Appearance: Well appearing, alert, in no acute distress, well-hydrated, well nourished.. Neck: Supple, no adenopathy; thyroid symmetric, normal size, no bruits. Lungs: Lungs clear to auscultation. No wheezing, rhonchi, rales.. Heart: RRR without murmur, gallop, or rubs. No ectopy. Health Maintenance List RSV Vaccine(1 - 1-dose 75+ series) Never done Shingrix Vaccine(2 of 3) due on 10/14/2014 Advance Directive Discussion due on 05/26/2023 Influenza Vaccine(1) due on 01/25/2024 Covid-19 Vaccine( - season) Never done Depression Screening due on 10/02/2024 Anxiety Screening due on 10/02/2024 DTaP,Tdap,Td Vaccine(8 - Td or Tdap) due on 05/02/2025 Diabetes Screening due on 04/02/2027 Pneumococcal Vaccine: 65+ Completed Data reviewed Appointment on 04/02/2024 Component Date Value Protein, Total 04/02/2024 7.2 Albumin 04/02/2024 4.0 Calcium, Total 04/02/2024 9.3 Bilirubin, Total 04/02/2024 0.4 Alkaline Phosphatase 04/02/2024 72 AST 04/02/2024 25 ALT 04/02/2024 19 Glucose 04/02/2024 101 (H) BUN 04/02/2024 24 Creatinine 04/02/2024 1.05 Sodium 04/02/2024 143 Potassium 04/02/2024 3.6 (L) Chloride 04/02/2024 104 CO2 04/02/2024 28 Anion Gap 04/02/2024 11 Estimated Glomerular Nirav* 04/02/2024 69 TSH 04/02/2024 0.277 WBC 04/02/2024 5.87 RBC 04/02/2024 4.53 Hemoglobin 04/02/2024 13.8 Hematocrit 04/02/2024 42.9 MCV 04/02/2024 94.7 MCH 04/02/2024 30.5 MCHC 04/02/2024 32.2 RDW-CV 04/02/2024 14.7 Platelet Count 04/02/2024 143 (L) MPV 04/02/2024 10.1 Neutrophils % 04/02/2024 64.0 Abs Neut 04/02/2024 3.76 Lymphocytes % 04/02/2024 22.7 Abs Lymph 04/02/2024 1.33 Monocytes % 04/02/2024 8.0 Abs [place] 04/02/2024 0.47 Eosinophils % 04/02/2024 4.3 Abs Eosin 04/02/2024 0.25 Basophils % 04/02/2024 0.7 Abs Baso 04/02/2024 0.04 Immature Granulocytes % 04/02/2024 0.3 Abs Immature Gran 04/02/2024 <0.03 NRBC 04/02/2024 0.0 Absolute nRBC 04/02/2024 <0.01 Diff Type 04/02/2024 [facility] Outpatient Visit on 02/24/2024 Component Date Value Date Time Interrogation * 02/24/[id number] Implantable Pulse Genera* 02/24/2024 Medtronic Implantable Pulse Genera* 02/24/2024 Pacemaker Implantable Pulse Genera* 02/24/[address] MRI [id number] Implantable Pulse Genera* 02/24/2024 [id number] Implantable Pulse Genera* 02/24/2024 [id number] Battery Voltage 02/24/2024 3.190 Battery E MERCHANT Trigger 02/24/2024 2.630 Battery Status 02/24/2024 OK Felix Statistic RA Perce* 02/24/2024 1.20 Felix Statistic RV Perce* 02/24/2024 99.70 Atrial Tachy Statistic A* 02/24/2024 0.00 Lead Channel Sensing Int* 02/24/2024 3.400 Lead Channel Setting Sen* 02/24/2024 0.30 Lead Channel Impedance V* 02/24/2024 456 Lead Channel Pacing Thre* 02/24/2024 0.500 Lead Channel Pacing Thre* 02/24/2024 0.4 Lead Channel Measurement* 02/24/2024 2024-02-24 Lead Channel Setting Pac* 02/24/2024 1.500 Lead Channel Setting Pac* 02/24/2024 0.4 Lead Channel Setting Sen* 02/24/2024 0.90 Lead Channel Impedance V* 02/24/2024 627 Lead Channel Pacing Thre* 02/24/2024 0.750 Lead Channel Pacing Thre* 02/24/2024 0.4 Lead Channel Measurement* 02/24/2024 2024-02-24 Lead Channel Setting Pac* 02/24/2024 2.000 Lead Channel Setting Pac* 02/24/2024 0.4 Felix Setting Mode (NBG * 02/24/2024 DDD Felix Setting Lower Rate* 02/24/2024 60 Felix Setting AT Mode Sw* 02/24/2024 171 Felix Setting Maximum Tr* 02/24/2024 120 Felix Setting Maximum Se* 02/24/2024 120 Felix Setting PAV Delay 02/24/2024 180 Felix Setting LIANA Delay 02/24/2024 150 Zone Setting Type Catego* 02/24/2024 VT Monitor Rate 1 02/24/2024 150 Zone Setting Status 02/24/2024 Monitor Zone ID 02/24/2024 0 Implantable Lead Manufac* 02/24/2024 Medtronic Implantable Lead Model 02/24/2024 3830 SelectSecure Implantable Lead Location 02/24/2024 Unknown Implantable Lead Connect* 02/24/2024 Connected Implantable Lead Serial * 02/24/2024 [id number] Implantable Lead Implant* 02/24/[id number] Implantable Lead Manufac* 02/24/2024 Medtronic Implantable Lead Model 02/24/2024 5076 CapsureFix Novus MRI Implantable Lead Location 02/24/2024 Right Atrium Implantable Lead Connect* 02/24/2024 Connected Implantable Lead Serial * 02/24/2024 [id number] Implantable Lead Implant* 02/24/[id number] ASSESSMENT/PLAN: 1. Acquired hypothyroidism - ICD9: 244.9, ICD10: E03.9 (primary diagnosis) - Instructed patient on importance of taking on an empty stomach either first thing in the morning or at bedtime. - check TSH in 6 months - THYROID STIMULATING HORMONE 2. 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 H/O mitral valve replacement - ICD9: V43.3, ICD10: Z95.2 - Stable - Cont f/u with Cardiology 4. Pacemaker - ICD9: V45.01, ICD10: Z95.0 - Cont f/u with Cardio for check 5. Encounter for immunization - ICD9: V03.89, ICD10: Z23 - INFLUENZA VACCINE, PRSV FREE, AGE 65+ YR, HIGH DOSE, TRIVALENT (FLUZONE HIGH-DOSE) - Receive in office today 6 mo f/u with labs. I agree with the Chief Complaint, ROS, and Past Histories independently gathered by the clinical personal support worker and the remaining scribed note accurately describes my personal service to the patient. Medical Decision Making: Problems: Moderate: 2+ stable chronic illnesses Data: Unique test result(s) reviewed: 2 Unique test(s) ordered: 3+ Risk: Moderate: Drug management Medical Decision Making Level: 4 - Moderate Jesus Taylor MD The documentation for this note was completed by Danya Whitman MA acting as scribe for Jesus Taylor MD. April 06, 2024 8:09 AM. Danya Whitman MA documented in this encounterOhio[facility]11-12-2024 NoteHNO ID: [id number] Author: JESUS TAYLOR MD Service: ? Author Type: Physician Type: Progress Notes Filed: 04/06/2024 10:38 Note Text: Chief Complaint Patient presents with: F/U 6 Month HPI Ruperto Castillo is a 88 year old male who presents here today for a 6 month follow up. Pt here today for his routine follow up. Thyroid - Stable on current regimen of Synthroid 75 mcg once daily. Denies any missed dosages. Has been referred to Endo in the past, Dr. Casey. No longer following. Osteo - Taking Calcium and Vit D once daily. Was unable to tolerate Fosamax and Boniva in the past. Cardio - Has been seen recently due to hospital admissions x 2 due to CHF and having his valve replaced. Pt following with [facility] and [facility]. Pt overall doing well at this time. Denies any chest pain, sob, edema or dizziness. Denies any issues with sleeping. Was given order from [facility] to start Rehab. Pt reports he's not done cardiac rehab at this time. Had restrictions for 6 weeks, not lifting more than 10 lbs with his left arm. He's back to doing his normal activities with no issues, overall feeling well. Has Pacemaker checks through [facility]. HM - Denies having Adv Dir/Living Will. Check with insurance regarding Shingles vaccine. Wants flu vaccine. Declines Covid vaccine and RSV vaccine. Past medical history, appointments, medications, allergies reviewed. Previous Medical History PAST MEDICAL HISTORY Diagnosis Date Diverticulosis of colon (without mention of hemorrhage) History of transfusion Mitral stenosis Osteoporosis Polio Hx as a child. left arm weakness/atrophy. 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 AGE 4 Unspecified hypothyroidism Previous Surgical History PAST SURGICAL HISTORY Procedure Laterality Date COLONOSCOPY FLX DX W/COLLJ SPEC WHEN PFRMD 07/31/2001 Colonoscopy COLONOSCOPY FLX DX W/COLLJ SPEC WHEN PFRMD 12/28/2007 Colonoscopy COLONOSCOPY FLX DX W/COLLJ SPEC WHEN PFRMD 03/07/2014 Colonoscopy COLONOSCOPY FLX DX W/COLLJ SPEC WHEN PFRMD 03/10/2017 no repeat needed COLONOSCOPY FLX DX W/COLLJ SPEC WHEN PFRMD 11/21/2020 HEART SURGERY HX I/D PERIANAL ABSCESS, SUPERFICIAL 03/23/2012 Right anterior perianal abscess PAST SURGICAL HISTORY OF Hemorrhoidectomy PAST SURGICAL HISTORY OF right rotator cuff REPLACEMENT MITRAL VALVE W/CARDIOPULMONARY BYP 2013 Mitral valve replacement SURG TX ANAL FISTULA INTERSPHINCTERIC 04/09/2012 TONSILLECTOMY PRIMARY/SECONDARY Tonsillectomy Family History FAMILY HISTORY Problem Relation Age of Onset Colon Cancer Father Osteoporosis Mother Ischemic Heart Disease Sister d. 65 during CABG. other (Mitral valve disease) Sister rheumatic fever Hx. Patient Allergies ALLERGIES Allergen Reactions Alendronate Unknown Fosamax [Alendronat* Intolerance musculoskeletal pain Current Medications Current Outpatient Medications on File Prior to Visit Medication Sig aspirin, enteric coated (ASPIRIN, ENTERIC COATED) 325 mg EC tablet Take 1 tablet by mouth once daily. levothyroxine (SYNTHROID) 75 mcg tablet Take one pill daily for 7 days/week therapeutic multivitamin tablet Take 1 tablet by mouth daily with breakfast. No current facility-administered medications on file prior to visit. Social History Social History Tobacco Use Smoking status: Never Smokeless tobacco: Never Vaping Use Vaping status: Never Used Substance Use Topics Alcohol use: No Drug use: No EXAM: BP 124/68 (BP Site: Left Arm, BP Position: Sitting, BP Cuff Size: Regular Adult) Pulse 76 Resp 18 Wt 64.4 kg (141 lb 15.6 oz) BMI 22.92 kg/m? General Appearance: Well appearing, alert, in no acute distress, well-hydrated, well nourished.. Neck: Supple, no adenopathy; thyroid symmetric, normal size, no bruits. Lungs: Lungs clear to auscultation. No wheezing, rhonchi, rales.. Heart: RRR without murmur, gallop, or rubs. No ectopy. Health Maintenance List RSV Vaccine(1 - 1-dose 75+ series) Never done Shingrix Vaccine(2 of 3) due on 10/14/2014 Advance Directive Discussion due on 05/26/2023 Influenza Vaccine(1) due on 01/25/2024 Covid-19 Vaccine( - 2023- season) Never done Depression Screening due on 10/02/2024 Anxiety Screening due on 10/02/2024 DTaP,Tdap,Td Vaccine(8 - Td or Tdap) due on 05/02/2025 Diabetes Screening due on 04/02/2027 Pneumococcal Vaccine: 65+ Completed Data reviewed Appointment on 04/02/2024 Component Date Value Protein, Total 04/02/2024 7.2 Albumin 04/02/2024 4.0 Calcium, Total 04/02/2024 9.3 Bilirubin, Total 04/02/2024 0.4 Alkaline Phosphatase 04/02/2024 72 AST 04/02/2024 25 ALT 04/02/2024 19 Glucose 04/02/2024 101 (H) BUN 04/02/2024 24 Creatinine 04/02/2024 1.05 Sodium 04/02/2024 143 Potassium 04/02/2024 3.6 (L) Chloride 04/02/2024 104 CO2 04/02/2024 28 Anion Gap 04/02/2024 11 Estimated G (more content not included)...[facility]11-07-2024 NoteHNO ID: [id number] Author: ?, ?, ? Service: ? Author Type: ? Type: Progress Notes Filed: 04/01/2024 08:46 Note Text: Summary: KCCQ-12 AMB TVT FOLLOWUP: Follow Up Type: Phone Call Call Attempt: Final Attempt Call Status: No AnswerMer[facility]24 History of Present illness Narrative* Codie King - 04/01/2024 8:45 AM ESTSummary: KCCQ-12 AMB TVT FOLLOWUP: Follow Up Type: Phone Call Call Attempt: Final Attempt Call Status: No Answer documented in this encounterOhio[facility]11-07-2024 NotePatient Outreach (JOSE) RUPERTO CASTILLO ([id number]) 1935 M Date Time Provider Department 04/01/24 CODIE KING During your visit today, we recorded the following information about you: Codie King 04/01/2024 8:46 AM Signed AMB TVT FOLLOWUP: Follow Up Type: Phone Call Call Attempt: Final Attempt Call Status: No Answer Allergies As of Date: 04/01/2024 Noted Allergy Reaction ALENDRONATE 08/30/2013 16 - Unknown FOSAMAX (ALENDRONATE SODIUM) 07/10/2006 5 - Intolerance Comments: musculoskeletal pain Date Reviewed: 02/24/2024 Reviewed by: Lalita Perkins, SHIPYARD PAINTER - Fully Assessed Prescriptions as of 04/01/2024 - aspirin, enteric coated (ASPIRIN, ENTERIC COATED) 325 mg EC tablet Take 1 tablet by mouth once daily. - levothyroxine (SYNTHROID) 75 mcg tablet Take one pill daily for 7 days/week - therapeutic multivitamin tablet Take 1 tablet by mouth daily with breakfast. Meds Comments as of 04/13/2020: Uses Mineral Oil prn for constipation. Pt takes Calcium w/Vit D daily and Vit D3 daily (low amounts) Problem List As Of Date 04/01/2024 Noted Resolved POLYMYALGIA RHEUMATICA [M35.3] 03/11/2005 07/28/2008 Cervicalgia [M54.2] 09/30/2005 06/06/2010 FAMILY HX GI MALIGNANCY [Z80.0] 02/17/2006 Sprain and strain of unspecified site of should*02/17/2006 06/06/2010 Personal history of poliomyelitis [Z86.12] 07/28/2008 Acquired hypothyroidism [E03.9] 04/27/2009 Drug-Induced Osteoporosis [M81.8, T50.905A] 10/26/2009 Fybhymg-ii-nsu [K60.30] 03/23/2012 Perianal abscess [K61.0] 03/23/2012 08/27/2017 Skin cancer [C44.90] 06/14/2013 08/27/2017 Rheumatic heart disease [I09.9] 10/19/2013 Mitral stenosis with insufficiency [I05.2] 10/19/2013 Preop testing [Z01.818] 10/19/2013 10/23/2013 Mechanically assisted ventilation [Z99.11] 10/20/2013 10/21/2013 Intravascular volume depletion [E86.1] 10/20/2013 10/23/2013 Acute postoperative pain [G89.18] 10/20/2013 08/27/2017 Hypotension [I95.9] 10/21/2013 10/25/2013 PFO (patent foramen ovale) [Q21.12] 10/21/2013 Hypoalbuminemia [E88.09] 10/21/2013 10/25/2013 Nutrition disorder [E63.9] 10/21/2013 Atelectasis [J98.11] 10/22/2013 08/27/2017 A-fib (HCC) [I48.91] 10/23/2013 08/12/2016 SUMMARY [V999.95] 10/23/2013 History of mitral valve replacement with biopro*11/02/2013 History of colonic polyps [Z86.0100] 02/11/2017 Chronic constipation [K59.09] 09/28/2021 Pulmonary hypertension (HCC) [I27.20] 10/03/2022 Acute heart failure with preserved ejection fra*01/08/2024 Congestive heart failure (HCC) [I50.9] 01/03/2024 Acute on chronic respiratory failure (HCC) [J96*01/08/2024 01/30/2024 Pleural effusion [J90] 01/08/2024 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] 08/30/2013 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] 01/08/2024 Paroxysmal atrial fibrillation (HCC) [I48.0] 10/26/2013 01/30/2024 Mitral valve stenosis, rheumatic [I05.0] 01/12/2024 Prosthetic mitral valve failure requiring repla*01/13/2024 Severe protein-calorie malnutrition (HCC) [E43] 01/19/2024 01/30/2024 Prosthetic valve dysfunction [T82.09XA] 01/20/2024 Essential hypertension [I10] 02/24/2024 Mixed hyperlipidemia [E78.2] 02/24/2024 S/P transcatheter mitral valve replacement (TMV*02/24/2024 Pacemaker [Z95.0] 02/24/2024 Complete heart block (HCC) [I44.2] 02/24/2024 Encounter Status:Closed by CODIE KING on 04/01/24[facility] 03-[facility]24 NoteHNO ID: [id number] Author: ?, ?, ? Service: ? Author Type: ? Type: Progress Notes Filed: 03/31/2024 09:02 Note Text: Summary: [facility] FOLLOW[facility]: Follow Up Type: Phone Call Call Attempt: 1st Attempt Call Status: Left MessageMercy Health West Hospital11-06-2024 History of Present illness Narrative* Codie King - 03/31/2024 9:01 AM ESTSummary: KCCQ-12 AMB TVT FOLLOWUP: Follow Up Type: Phone Call Call Attempt: 1st Attempt Call Status: Left Message documented in this encounterOhiohealth [facility]11-06-2024 NotePatient Outreach (JOSE) RUPERTO CASTILLO ([id number]) 1935 M Date Time Provider Department 03/31/24 CODIE KING During your visit today, we recorded the following information about you: Codie King 03/31/2024 9:02 AM Signed AMB TVT FOLLOWUP: Follow Up Type: Phone Call Call Attempt: 1st Attempt Call Status: Left Message Allergies As of Date: 03/31/2024 Noted Allergy Reaction ALENDRONATE 08/30/2013 16 - Unknown FOSAMAX (ALENDRONATE SODIUM) 07/10/2006 5 - Intolerance Comments: musculoskeletal pain Date Reviewed: 02/24/2024 Reviewed by: Lalita Perkins APRN.SHIPYARD PAINTER - Fully Assessed Prescriptions as of 03/31/2024 - aspirin, enteric coated (ASPIRIN, ENTERIC COATED) 325 mg EC tablet Take 1 tablet by mouth once daily. - levothyroxine (SYNTHROID) 75 mcg tablet Take one pill daily for 7 days/week - therapeutic multivitamin tablet Take 1 tablet by mouth daily with breakfast. Meds Comments as of 04/13/2020: Uses Mineral Oil prn for constipation. 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] 10/26/2009 Wrreenr-nn-dzx [K60.30] 03/23/2012 Perianal abscess [K61.0] 03/23/2012 08/27/2017 Skin cancer [C44.90] 06/14/2013 08/27/2017 Rheumatic heart disease [I09.9] 10/19/2013 Mitral stenosis with insufficiency [I05.2] 10/19/2013 Preop testing [Z01.818] 10/19/2013 10/23/2013 Mechanically assisted ventilation [Z99.11] 10/20/2013 10/21/2013 Intravascular volume depletion [E86.1] 10/20/2013 10/23/2013 Acute postoperative pain [G89.18] 10/20/2013 08/27/2017 Hypotension [I95.9] 10/21/2013 10/25/2013 PFO (patent foramen ovale) [Q21.12] 10/21/2013 Hypoalbuminemia [E88.09] 10/21/2013 10/25/2013 Nutrition disorder [E63.9] 10/21/2013 Atelectasis [J98.11] 10/22/2013 08/27/2017 A-fib (HCC) [I48.91] 10/23/2013 08/12/2016 SUMMARY [V999.95] 10/23/2013 History of mitral valve replacement with biopro*11/02/2013 History of colonic polyps [Z86.0100] 02/11/2017 Chronic constipation [K59.09] 09/28/2021 Pulmonary hypertension (HCC) [I27.20] 10/03/2022 Acute heart failure with preserved ejection fra*01/08/2024 Congestive heart failure (HCC) [I50.9] 01/03/2024 Acute on chronic respiratory failure (HCC) [J96*01/08/2024 01/30/2024 Pleural effusion [J90] 01/08/2024 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] 08/30/2013 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] 01/08/2024 Paroxysmal atrial fibrillation (HCC) [I48.0] 10/26/2013 01/30/2024 Mitral valve stenosis, rheumatic [I05.0] 01/12/2024 Prosthetic mitral valve failure requiring repla*01/13/2024 Severe protein-calorie malnutrition (HCC) [E43] 01/19/2024 01/30/2024 Prosthetic valve dysfunction [T82.09XA] 01/20/2024 Essential hypertension [I10] 02/24/2024 Mixed hyperlipidemia [E78.2] 02/24/2024 S/P transcatheter mitral valve replacement (TMV*02/24/2024 Pacemaker [Z95.0] 02/24/2024 Complete heart block (HCC) [I44.2] 02/24/2024 Encounter Status:Closed by CODIE KING on 03/31/24[facility] 02-24-2024 History of Present illness Narrative* Lalita Perkins APRN.SHIPYARD PAINTER - 02/24/2024 3:00 PM EDT Images from the original note were not included. [facility] Department of Cardiovascular Medicine SECTION OF INTERVENTIONAL CARDIOLOGY OUTPATIENT VISIT DATE February 16, 2024 OUTPATIENT VISIT TYPE ESTABLISHED FOLLOW UP Primary Freezing Machine Operator: Dr. Vallejo Chief Complaint: Patient here for cardiac follow up evaluation History of Present Illness: Patient is a 88 year old male who presents for follow up visit today. Past medical history includes: Mitral valve stenosis -S/p #29 CE in 2013 -01/20/2024, underwent TMVR Luisa with 29 mm Deric 3 Ultra valve c/b fixed elevated LVOT gradient post implantation and underwent successful alcohol septal ablation of the S2 branch with improvement ingradient. Pulmonary hypertension Chronic diastolic heart failure Tricuspid regurgitation Paroxysmal atrial fibrillation- not on AC Complete heart block -01/22/2024: s/p left dual chamber pacing with left bundle branch area pacing (LBBAP) Patient recently admitted under the Clinical Cardiology service from 01/08/2024- 01/23/2024 for acute decompensated heart failure, mitral regurgitation and complete heart block. Echocardiogram completedwith EF 58%, mildly dilated RV, 1+ MR with mean gradient 20 mmHg and RVSP 81 mmHg. TMVR team was consulted. CXR demonstrated moderate right pleural effusion and underwent right thoracentesis with 1.5L removed followed by left thoracentesis with 800 cc removed. On 01/13, underwent cardiac catheterization that did not show any obstructive CAD. On 01/20/2024, underwent TMVR Luisa with 29 mm Deric 3 Ultra valve. Patient found to have fixed elevated LVOT gradient post implantation and underwent successful alcohol septal ablation of the S2 branch with improvement in gradient. Post procedure, patient developed CHB. EP was consulted and on 01/22/2024, he underwent left dual chamber pacing with left bundle branch area pacing (LBBAP). Patient was discharged in stable condition. Patient was not discharged on AC given remote history of AF and no documented events while hospitalized. Can gather AF burden from device check and determine if patient will require AC in the future. Following recent hospitalization, patient has been doing well at home and has seen a significant improvement in symptoms. He checks his blood pressure periodically with typical readings of SBP in [id number]. Denies chest pain, dyspnea on exertion, orthopnea, palpitations, lightheadedness, syncope, leg swelling, cough, and wheezing PAST CARDIAC HISTORY: See HPI PAST MEDICAL HISTORY Diagnosis Date Diverticulosis of colon (without mention of hemorrhage) History of transfusion Mitral stenosis Osteoporosis Polio Hx as a child. left arm weakness/atrophy. 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 AGE 4 Unspecified hypothyroidism PAST SURGICAL HISTORY Procedure Laterality Date COLONOSCOPY FLX DX W/COLLJ SPEC WHEN PFRMD 07/31/2001 Colonoscopy COLONOSCOPY FLX DX W/COLLJ SPEC WHEN PFRMD 12/28/2007 Colonoscopy COLONOSCOPY FLX DX W/COLLJ SPEC WHEN PFRMD 03/07/2014 Colonoscopy COLONOSCOPY FLX DX W/COLLJ SPEC WHEN PFRMD 03/10/2017 no repeat needed COLONOSCOPY FLX DX W/COLLJ SPEC WHEN PFRMD 11/21/2020 HEART SURGERY HX I/D PERIANAL ABSCESS, SUPERFICIAL 03/23/2012 Right anterior perianal abscess PAST SURGICAL HISTORY OF Hemorrhoidectomy PAST SURGICAL HISTORY OF right rotator cuff REPLACEMENT MITRAL VALVE W/CARDIOPULMONARY BYP 2013 Mitral valve replacement SURG TX ANAL FISTULA INTERSPHINCTERIC 04/09/2012 TONSILLECTOMY PRIMARY/SECONDARY <AGE 14 Tonsillectomy Social History Tobacco Use Smoking status: Never Smokeless tobacco: Never Vaping Use Vaping status: Never Used Substance Use Topics Alcohol use: No Drug use: No FAMILY HISTORY Problem Relation Age of Onset Colon Cancer Father Osteoporosis Mother Ischemic Heart Disease Sister d. 65 during CABG. other (Mitral valve disease) Sister rheumatic fever Hx. ALLERGIES Allergen Reactions Alendronate Unknown Fosamax [Alendronat* Intolerance musculoskeletal pain MEDICATIONS: Current Outpatient Medications Medication Sig levothyroxine (SYNTHROID) 75 mcg tablet Take one pill daily for 7 days/week therapeutic multivitamin tablet Take 1 tablet by mouth daily with breakfast. aspirin, enteric coated (ASPIRIN, ENTERIC COATED) 325 mg EC tablet Take 1 tablet by mouth once daily. No current facility-administered medications for this visit. REVIEW OF SYSTEMS: PAIN ASSESSMENT: Denies complaints of acute or chronic pain GENERAL: Denies fevers, chills, night sweats, weight gain or loss HEENT: Denies changes in vision, hearing, nose bleeds, or bleeding gums NECK: Denies neck pain, stiffness, or swelling, or swollen lymph nodes RESPIRATORY: See HPI CARDIOVASCULAR: See HPI GI: Denies difficulty swallowing, nausea, vomiting, diarrhea, constipation, or melena : Denies frequency, urgency, or burning, and hematuria MUSCULOSKELETAL: Denies joint pain, swelling, or stiffness SKIN: Denies rashes, lesions, or tears PSYCH: Denies sleep disturbance, mood disorder, or recent psychosocial stressors HEMATOLOGY/LYMPHOLOGY: Denies prolonged bleeding or easy bruising ENDOCRINE: Denies heat or cold intolerance, polydipsia or polyphagia NEURO: Denies syncope, seizures, or numbness or tingling of hands or feet PHYSICAL EXAMINATION: BP 113/63 Pulse 71 Resp 16 Ht 5' 6 (1.68m) Wt 138 lb (62.6kg) SpO2 99% BMI 22.28 kg/(m^2). General: No acute distress Skin: warm, dry, and intact; no rashes or lesions noted Neck: No JVD Lungs: Breath sounds clear, respiratory effort normal Heart: Regular rhythm, no murmur, no edema noted Abdomen: Soft nontedner, +BSx4 Extremities: Distal pulses intact, MAEx4 Musculoskeletal: No deformities Neurologic/Psychiatric: Oriented to time, place & person and no gross focal neurologic deficits CARDIOVASCULAR MEDICINE TESTING: Last ECHO Result Conclusion ECHO Collected: 01/21/2024 10:51 AM (Final result) Impression: CONCLUSIONS: - Technically difficult exam due to body habitus. - Exam indication: S/P TMVR, LVOT gradients - Left ventricular systolic function is normal. Left ventricular diastolic function was not evaluated due to mitral valve surgery. - The right ventricle is normal in size. Right ventricular systolic function is normal. - Post mitral valve replacement. Deric 3 Ultra prosthetic mitral valve (size #29). There is trace mitral valve regurgitation. The peak gradient is 14 mmHg and the mean gradient is 5 mmHg. MV gradients obtained at 70 bpm. - LVOT flow acceleration with associated fixed LVOT gradient of ~peak 44mmHg/mean 30 mmHg. Aortic valve appears to be opening reasonably well (clip 10). - Exam was compared with the prior echocardiographic exam performed on 01/20/2024 (OR). First post-TMVR TTE. Fixed LVOT obstruction sugested as above, previously noted on intraop CAMILA 01/20/24. * * * Final * * * I have personally reviewed the Echocardiogram. IMPRESSION: Ruperto Castillo is an 88 year old male with pmhx of: Mitral valve stenosis -S/p #29 CE in 2013 -01/20/2024, underwent TMVR Luisa with 29 mm Deric 3 Ultra valve c/b fixed elevated LVOT gradient post implantation and underwent successful alcohol septal ablation of the S2 branch with improvement ingradient. Pulmonary hypertension Chronic diastolic heart failure Tricuspid regurgitation Paroxysmal atrial fibrillation- not on AC Complete heart block -01/22/2024: s/p left dual chamber pacing with left bundle branch area pacing (LBBAP) Patient continues to do well at home, cardiac rehab prescription provided and discussed with patient. At this time he is declining. Incision sites from procedure have healed with no complication. Unfortunately, patient did not have any testing scheduled with visit today. Ordered an EKG, labs (CMP, CBC, A1c, Lipid panel and NT ProBNP) and an echocardiogram. Patient requesting appointments to be completed at [facility], provided appointment line to contact to schedule. Device check completed today with no AF burden listed. No AC required. PLAN AND RECOMMENDATIONS: NYHA FC CHADSVASC2 Aspirin: 81 mg daily DAPT: N/a AC: N/a Beta Enzo: N/a ACEI/ARB/ARNI: N/a SGLT2 inhibitor: N/a Diuretic: N/a Aldosterone antagonist: N/a Statin: N/a Additional medications: Synthroid 75 mcg daily Device therapy: N/a Aggressive risk factor modification as appropriate. -- BP Goal < 130/80 with nonpharmacologic and medical therapy -- LDL goal 50% reduction AND level < 55-70 mg/dL using max tolerated statin +/- adjuvant therapy -- HbA1C < 7% -- Healthy diet and exercise +/- weight loss if appropriate. - Smoking and alcohol abstinence/cessation, if applicable Follow up/Disposition: Cardiac rehab prescription provided Continue to check your blood pressure at home and record the results. Bring these results with you to the next appointment. Please have labs, EKG and echocardiogram completed, this can be done at the [facility] location. You will need to be fasting for the lab work only. With Cardiology, Dr. Vallejo, in [address] Vallejo's office at if you have worsening shortness of breath, chest pain, lower extremity swelling, palpitations or weight gain of greater than 3 lbs in 1 day. Education/Counseling: We have discussed the following pharmacological measures during this visit: Reviewed all medications. Patient is able to get medications with out issues Reviewed any possible side effects of medications. Take ALL medications as prescribed. We discussed the following non-pharmacological measures during this visit: Diet: Eat a low-salt (sodium) diet Read food labels for sodium content. Mediterranean Diet Weight: Check for swelling in your feet, ankles, legs, and stomach. Weigh yourself each morning before breakfast. Compare If your weight goes up or down 4lbs from your dry weight, call your professional engineer Exercise: Be active and exercise every day. Smoking and alcohol abstinence/cessation, if applicable Heart Failure Education Booklet: information given previously. Please Visit [email or web address] Questions or Concerns after you go home? Please call Nurse electronic publishing specialist line at . I spent a total of 40 minutes on the date of the service which included preparing to see the patient, [id number] patient care, completing clinical documentation, obtaining and/or reviewing separately obtained history, counseling and educating the patient/family/caregiver, and ordering medications, tests, or procedures. Lalita Perkins APRN.CNP documented in this encounterOhio[facility] Instructions* Patient Instructions* Lalita Perkins APRN.CNP - 02/24/2024 1:32 PM EDT Follow up/Disposition: Cardiac rehab prescription provided Continue to check your blood pressure at home and record the results. Bring these results with you to the next appointment. Please have labs, EKG and echocardiogram completed, this can be done at the [facility] location. You will need to be fasting for the lab work only. With Cardiology, Dr. Vallejo, in [address] Vallejo's office at if you have worsening shortness of breath, chest pain, lower extremity swelling, palpitations or weight gain of greater than 3 lbs in 1 day. Lalita Perkins APRN.CNP documented in this encounterOhio[facility]09-19-2024 Telephone encounter Note * Telephone Encounter - Vira Estrada - 02/12/2024 10:00 AM EDT Transitional Care Management (TCM) [facility] Monitoring Program Provider Action / FYI: Na SUMMARY: Outreach type: INITIAL OUTREACH Discharge Network Status: In-Network Discharge Source of Patient: [facility] TCM Discharge Report Patient discharged from [facility] on 01.23.24. Admitted for Acute heart failure with preserved ejection fraction (HCC) Contact made with patient: Yes, for Initial Outreach Hi my name is Vira Estrada and I am calling from the [facility] on behalf of your Primary Care Provider, Jesus Taylor MD. I understand you were recently in the hospital so I am calling to check in with you to ensure you are feeling well now that you are home. May I ask you a few questions related to your hospital stay and well-being? Yes Contact with patient post discharge, spoke to patient. Patient identified by name and . Symptoms: Do you feel your health is BETTER, WORSE, or the SAME since leaving the hospital? Better Action Taken: Patient indicated symptoms are better or same, no action required. Hospital Follow-Up Appointment: I would like to help you schedule a hospital follow-up visit with your Primary Care Provider (PCP). This is a great way for you to connect with your provider to ensure you have safely transitioned home. If you are agreeable, I will provide you with the Appointment Center phone number to speak witha wellness rn who can assist you with that appointment. This will give you an opportunity to ask any questions or address any concerns you may have with your Primary Care Provider. [Inform the patient that if they have any questions or concerns prior to that appointment, to call their PCP's office right away.] Action Taken: No action required, patient already has an appointment scheduled. Vira Estrada February 12, 2024 10:02 AM [facility]09-19-2024 Miscellaneous Notes* Telephone Encounter - Vira Estrada - 02/12/2024 10:00 AM EDT Transitional Care Management (TCM) [facility] Provider Action / FYI: Na SUMMARY: Outreach type: INITIAL OUTREACH Discharge Network Status: In-Network Discharge Source of Patient: [facility] TCM Discharge Report Patient discharged from [facility] on 01.23.24. Admitted for Acute heart failure with preserved ejection fraction (HCC) Contact made with patient: Yes, for Initial Outreach Hi my name is Vira Estrada and I am calling from the [facility] on behalf of your Primary Care Provider, Jesus Taylor MD. I understand you were recently in the hospital so I am calling to check in with you to ensure you are feeling well now that you are home. May I ask you a few questions related to your hospital stay and well-being? Yes Contact with patient post discharge, spoke to patient. Patient identified by name and . Symptoms: Do you feel your health is BETTER, WORSE, or the SAME since leaving the hospital? Better Action Taken: Patient indicated symptoms are better or same, no action required. Hospital Follow-Up Appointment: I would like to help you schedule a hospital follow-up visit with your Primary Care Provider (PCP). This is a great way for you to connect with your provider to ensure you have safely transitioned home. If you are agreeable, I will provide you with the Appointment Center phone number to speak witha wellness rn who can assist you with that appointment. This will give you an opportunity to ask any questions or address any concerns you may have with your Primary Care Provider. [Inform the patient that if they have any questions or concerns prior to that appointment, to call their PCP's office right away.] Action Taken: No action required, patient already has an appointment scheduled. Vira Estrada February 12, 2024 10:02 AM documented in this encounterOhiohealth [facility]09-12-2024 Telephone encounter Note * Telephone Encounter - Fabiana Blanc Tech - 02/05/2024 10:36 AM EDT Post Implant follow up call: Date: 02/05/2024 Name: Ruperto Castillo Is your incision: Red: No Open: No Swollen: No Draining: No Steri Strips: still intact and fell off If the device is an ICD, have you received any shocks: N/A Have you received your temporary or permanent ID card: Yes Do you have your f/u appointment: Yes Appointments for Next 60 Days Date Time Provider Location Dept Phone 02/24/2024 3:00 PM LALITA PERKINS [facility] [phone] 03/04/2024 2:15 PM [facility] Deyanira Ramos [phone] Any scheduling issues:No Questions moving forward: No Patient endorsed that he went to the local hospital and the nurse checked out his incision and thatit was healing well. Patient contacted at [phone] Fransisco Manriquez [facility]09-12-2024 Miscellaneous Notes* Telephone Encounter - Fabiana Blanc Tech - 02/05/2024 10:36 AM EDT Post Implant follow up call: Date: 02/05/2024 Name: Ruperto Castillo Is your incision: Red: No Open: No Swollen: No Draining: No Steri Strips: still intact and fell off If the device is an ICD, have you received any shocks: N/A Have you received your temporary or permanent ID card: Yes Do you have your f/u appointment: Yes Appointments for Next 60 Days Date Time Provider Location Dept Phone 02/24/2024 3:00 PM LALITA PERKINS [facility] [phone] 03/04/2024 2:15 PM [facility] [phone] Any scheduling issues:No Questions moving forward: No Patient endorsed that he went to the local hospital and the nurse checked out his incision and thatit was healing well. Patient contacted at [phone] Fransisco Manriquez documented in this encounterOhiohealth [facility]09-06-2024 History of Present illness Narrative* Jesus Taylor MD - 01/30/2024 2:20 PM EDT Transitional Care Management TCM Eligibility Documentation Outreach completed via text messaging service. Provider Documentation Ruperto Castillo is a 88 year old male here today for a follow up from recent hospitalization. I have reviewed the patient's hospital course including discharge summary, discharge medications , and follow up needs with the patient and any family members present at today's visit. HPI Pt was seen in [facility] ER and transferred within 2-3 hours to [facility] on 01/08/24 and admitted for mitral valve replacement and pacemaker. Pt to follow up with Electrophysiology, Interventional Cardiology, and PCP. He was started on ASA 81 mg daily. Treated with round of antibiotics Keflex which is completed. Advised to stop Potassium Chloride 10 mg and Bumetanide 2 mg. He is scheduled to see Cardiac Device Specialist at [facility] on 02/02/24 and Shantel Shepard with heart group on 02/20/24. Also scheduled in Feb with [facility] child welfare specialist. He is feeling like his energy level is slowly improving. He denies any chest pains, dizziness, or SOB. Has some mild swelling in the ankles. Does not have an advanced directive. Below copied from [facility]: HOSPITAL COURSE: Ruperto Castillo, an 88-year-old male with a history of rheumatic fever complicated by aortic stenosis, mitral valve stenosis (status post replacement with Андрей Pickett 29 mm in 2013), pulmonary hypertension, tricuspid insufficiency, HFpEF, paroxysmal atrial fibrillation, hypothyroidism, and osteoporosis, presented to the [facility] with acute on chronic dyspnea. He has a long history of dyspnea but had not required home oxygen. A right-sided thoracentesis on December 22, 2023, removed 1.4 liters of fluid, and the effusion was thought to be related to mitral valve dysfunction, perpatient report. On December 31, 2023, he was admitted to [facility] for ADHF with respiratory distress, requiring BiPAP. A repeat echocardiogram at that time revealed that his prosthetic mitral valve was beginning to fail, with the gradient increasing to 16 mmHg, which led to worsening pulmonary hypertension. Treatment improved his respiratory distress, and he was discharged on January 03, 2024, without the need for supplemental oxygen. He was prescribed Bumex, which he stopped taking as he felt it worsened his symptoms. He returned home but experienced a progression of dyspnea from exertion to at rest. On January 08, 2024, 1am, he drove himself to the emergency room due to intolerance of these symptoms. He was started on BiPAP and treated with Lasix. It was decided to transfer him to [facility] for evaluation of potentialsurgical intervention based on worsening prosthetic mitral valve stenosis as evidenced by echocardiography. The patient also experienced episodes of narrow complex tachycardia and possibly atrial fibrillation, although the documentation was less clear. During his hospitalization at [facility], a transthoracic echocardiogram on January 09, 2024, showed an ejection fraction of 58%, mildly dilated right ventricle, +1 mitral valve regurgitation, a mean gradient of 20 mmHg, and RVSP of 81 mmHg. A chest X-ray on the same day revealed moderate pleural effusion.He underwent a right thoracentesis on January 13, 2024, with 1.55 liters removed, leading to significant improvement in breathing. A left thoracentesis on January 15, 2024, removed 800 ml. A left heartcatheterization on January 14, 2024, was negative for obstructive coronary artery disease. On 2023, his creatinine level gil from 1.17 to 1.55 mg/dL, prompting the discontinuation of diuretics. Following this, his creatinine level normalized, and further diuresis was not required as he was euvolemic. On January 20, 2024, he underwent a [id number] transcatheter mitral valve replacement (Luisa TMVR)with a 29 mm Deric 3 Ultra valve, which was post-dilated with a 28 mm True balloon, and alcohol ablation of the S2 branch. Post-ablation, the left ventricular outflow tract gradient was reduced by approximately 5 mmHg. He was noted to be in complete heart block, and a temporary pacing wire was plac ed. On January 21, 2024, he was transferred to the CICU for postoperative management, which was complicated by complete heart block. EP was consulted, and he underwent left dual chamber pacing with left bundle branch area pacing (LBBAP) on January 22, 2024. EKG on 01/23/2024 shows A sensed- V paced with excellent left bundle morphology pacing. CXR on 01/22/2024 shows no pneumothorax. He was transferred to the the inpatient cardiology unit on January 22 and discharged on the same dayafter being HDS and saturating well at room air. During discharge planning we considered anticoagulation (apixaban 5mg bid) for his remote past medical history of atrial fibrillation post mitral valve replacement in 2013. However, there are no registered episodes of A-fib on EKG and during the current hospitalization he never went into A-fib. Given that the patient now has a pacemaker, we will beable to accurately quantify A-fib burden and, therefore, decide if he should be on anticoagulation based on his device check. Discharge medications and follow-up instructions will be provided separately. He has scheduled follow-up appointments with the EP and Interventional Cardiology teams, besides, his PCP. OPERATIONS/PROCEDURE DURING THIS HOSPITALIZATION: Procedure(s) (LRB): INSERTION OF NEW OR REPLACEMENT OF PERMANENT PACEMAKER W/ TRANSVENOUS ELECTRODE(S) ATRIAL & VENTRICULAR PEDIATRIC (N/A) PHYSICAL EXAMINATION BP 104/62 Pulse 74 Resp 16 Wt 65 kg (143 lb 4.8 oz) SpO2 95% BMI 22.44 kg/m GENERAL: well appearing, alert, in no acute distress HEART: regular rate and rhythm. No murmur, rubs or gallops. LUNGS: clear to auscultation, no wheezing, rhonchi, or crackles EXTREMITIES: bilateral edema - mild CHEST: Incision site to chest looks good, no infection ASSESSMENT/PLAN: 1. Hospital discharge follow-up - ICD9: V67.59, ICD10: Z09 (primary diagnosis) Improving Continue current medications. Continue with Cardiology 2. Pacemaker - ICD9: V45.01, ICD10: Z95.0 Continue with device specialist and Cardio 3. H/O mitral valve replacement - ICD9: V43.3, ICD10: Z95.2 Continue current medications. Continue with Cardio Follow up in Mar as scheduled for routine follow up. I agree with the Chief Complaint, ROS, and Past Histories independently gathered by the clinical personal support worker and the remaining scribed note accurately describes my personal service to the patient. Jesus Taylor MD The documentation for this note was completed by Moni Harden MA acting as scribe for Jesus Taylor MD. January 30, 2024 2:26 PM. Moni Harden MA documented in this encounterOhio[facility] Telephone encounter Note * Telephone Encounter - Belle Helms RN - 01/28/2024 1:43 PM EDT [place] [employer] nurse called patient for follow up from recent hospital discharge, but no answer. Left message on voicemail including resource nurse phone number for new or worsening symptoms, questions or concerns. Belle Helms RN [facility]09-04-[facility] Miscellaneous Notes* Telephone Encounter - Belle Helms RN - 01/28/2024 1:43 PM EDT [facility] nurse called patient for follow up from recent hospital discharge, but no answer. Left message on voicemail including resource nurse phone number for new or worsening symptoms, questions or concerns. Belle Helms, RN documented in this encounterOhiohealth Dublin [facility]09-03-2024 Telephone encounter Note * Telephone Encounter - [place], Claudy - 01/27/2024 4:16 PM EDT Transitional Care Management (TCM) [facility] Monitoring [facility] Provider Action / FYI: na SUMMARY: Outreach type: INITIAL OUTREACH Discharge Network Status: In-Network Discharge Source of Patient: [facility] TCM Discharge Report Patient discharged from [facility] on 01.23.24. Admitted for Acute heart failure with preserved ejection fraction (HCC) . Contact made with patient: Yes, for Initial Outreach Hi my name is Claudy Ozuna and I am calling from the [facility] on behalf of your Primary Care Provider, Jesus Taylor MD. I understand you were recently in the hospital so I am calling to check in with you to ensure you are feeling well now that you are home. May I ask you a few questions related to your hospital stay and well-being? Yes Contact with patient post discharge, spoke to patient. Patient identified by name and . Symptoms: Do you feel your health is BETTER, WORSE, or the SAME since leaving the hospital? Better Action Taken: Patient indicated symptoms are better or same, no action required. Hospital Follow-Up Appointment: I would like to help you schedule a hospital follow-up visit with your Primary Care Provider (PCP). This is a great way for you to connect with your provider to ensure you have safely transitioned home. If you are agreeable, I will provide you with the Appointment Center phone number to speak witha wellness rn who can assist you with that appointment. This will give you an opportunity to ask any questions or address any concerns you may have with your Primary Care Provider. [Inform the patient that if they have any questions or concerns prior to that appointment, to call their PCP's office right away.] Action Taken: No action required, patient already has an appointment scheduled. Claudy Ozuna January 27, 2024 4:20 PM [facility]09-03-[facility] Miscellaneous Notes* Telephone Encounter - [place]ys[place]Caroline whytemeenu - 01/27/2024 4:16 PM EDT Transitional Care Management (TCM) [facility] Provider Action / FYI: na SUMMARY: Outreach type: INITIAL OUTREACH Discharge Network Status: In-Network Discharge Source of Patient: [facility] TCM Discharge Report Patient discharged from [facility] on 01.23.24. Admitted for Acute heart failure with preserved ejection fraction (HCC) . Contact made with patient: Yes, for Initial Outreach Hi my name is Claudy Ozuna and I am calling from the [facility] on behalf of your Primary Care Provider, Jesus Taylor MD. I understand you were recently in the hospital so I am calling to check in with you to ensure you are feeling well now that you are home. May I ask you a few questions related to your hospital stay and well-being? Yes Contact with patient post discharge, spoke to patient. Patient identified by name and . Symptoms: Do you feel your health is BETTER, WORSE, or the SAME since leaving the hospital? Better Action Taken: Patient indicated symptoms are better or same, no action required. Hospital Follow-Up Appointment: I would like to help you schedule a hospital follow-up visit with your Primary Care Provider (PCP). This is a great way for you to connect with your provider to ensure you have safely transitioned home. If you are agreeable, I will provide you with the Appointment Center phone number to speak witha wellness rn who can assist you with that appointment. This will give you an opportunity to ask any questions or address any concerns you may have with your Primary Care Provider. [Inform the patient that if they have any questions or concerns prior to that appointment, to call their PCP's office right away.] Action Taken: No action required, patient already has an appointment scheduled. Claudy Ozuna January 27, 2024 4:20 PM documented in this encounterOhiohealth Dublin [facility] Hospital09-03-2024 History of Present illness Narrative* Christiano Conner RPh - 01/27/2024 8:39 AM EDT TRANSITION CARE MANAGEMENT (TCM) HEART FAILURE PHARMACY CONTACT Provider Action/FYI: Unable to reach patient after unsuccessful outreach attempt. Left voicemail for patient including call back number to TCM pharmacist. TCM medication reconciliation incomplete at this time Patient Workup: HF medication classes present on medication list: GORGE/ARB/ARNI NO Beta enzo NO Aldosterone antagonist NO SGLT2i NO Hydralazine/Isosorbide NO Ivabradine NO Loop diuretics NO Digoxin NO New HF medication class(es) added this admission: No (Patient to be counseled on new medications iffull medication review completed) Last documented LVEF: LV Ejection Fraction (%) Date Value 01/09/2024 58 Last documented weight: Last Wt 01/23/24 63.8 kg (140 lb 10.5 oz) Patient was sent a message via [employer] including the link to the [facility] Heart Failure education video: No Patient unable to be reached after unsuccessful outreach attempt(s). No further attempts to contactpatient will be made. SUMMARY: -Pt discharged from [facility] on 01/23/24. -Medication review not done History of Present Illness: The following content has been copied and pasted from patient's discharge summary. If discharge summary unavailable, After Visit Summary or last pertinent inpatient notes are copied and pasted. Ruperto Castillo, an 88-year-old male with a history of rheumatic fever complicated by aortic stenosis, mitral valve stenosis (status post replacement with Андрей Pickett 29 mm in 2013), pulmonary hypertension, tricuspid insufficiency, HFpEF, paroxysmal atrial fibrillation, hypothyroidism, and osteoporosis, presented to the [facility] with acute on chronic dyspnea. He has a long history of dyspnea but had not required home oxygen. A right-sided thoracentesis on December 22, 2023, removed 1.4 liters of fluid, and the effusion was thought to be related to mitral valve dysfunction, per patient report. On December 31, 2023, he was admitted to [facility] for ADHF with respiratory distress, requiring BiPAP. A repeat echocardiogram at that time revealed that his prosthetic mitral valve was beginning to fail, with the gradient increasing to 16 mmHg, which led to worsening pulmonary hypertension. Treatment improved his respiratory distress, and he was discharged on January 03, 2024, without the need for supplemental oxygen. He was prescribed Bumex, which he stopped taking as he felt it worsened his symptoms. He returned home but experienced a progression of dyspnea from exertion to at rest. On January 08, 2024, 1am, he drove himself to the emergency room due to intolerance of these symptoms. He was started on BiPAP and treated with Lasix. It was decided to transfer him to [facility] for evaluation of potentialsurgical intervention based on worsening prosthetic mitral valve stenosis as evidenced by echocardiography. The patient also experienced episodes of narrow complex tachycardia and possibly atrial fibrillation, although the documentation was less clear. During his hospitalization at [facility], a transthoracic echocardiogram on January 09, 2024, showed an ejection fraction of 58%, mildly dilated right ventricle, +1 mitral valve regurgitation, a mean gradient of 20 mmHg, and RVSP of 81 mmHg. A chest X-ray on the same day revealed moderate pleural effusion.He underwent a right thoracentesis on January 13, 2024, with 1.55 liters removed, leading to significant improvement in breathing. A left thoracentesis on January 15, 2024, removed 800 ml. A left heartcatheterization on January 14, 2024, was negative for obstructive coronary artery disease. On 2023, his creatinine level gil from 1.17 to 1.55 mg/dL, prompting the discontinuation of diuretics. Following this, his creatinine level normalized, and further diuresis was not required as he was euvolemic. On January 20, 2024, he underwent a wyopy-bw-hpjre transcatheter mitral valve replacement (Luisa TMVR)with a 29 mm Deric 3 Ultra valve, which was post-dilated with a 28 mm True balloon, and alcohol ablation of the S2 branch. Post-ablation, the left ventricular outflow tract gradient was reduced by approximately 5 mmHg. He was noted to be in complete heart block, and a temporary pacing wire was plac ed. On January 21, 2024, he was transferred to the CICU for postoperative management, which was complicated by complete heart block. EP was consulted, and he underwent left dual chamber pacing with left bundle branch area pacing (LBBAP) on January 22, 2024. EKG on 01/23/2024 shows A sensed- V paced with excellent left bundle morphology pacing. CXR on 01/22/2024 shows no pneumothorax. He was transferred to the the inpatient cardiology unit on January 22 and discharged on the same dayafter being HDS and saturating well at room air. During discharge planning we considered anticoagulation (apixaban 5mg bid) for his remote past medical history of atrial fibrillation post mitral valve replacement in 2013. However, there are no registered episodes of A-fib on EKG and during the current hospitalization he never went into A-fib. Given that the patient now has a pacemaker, we will beable to accurately quantify A-fib burden and, therefore, decide if he should be on anticoagulation based on his device check. Discharge medications and follow-up instructions will be provided separately. He has scheduled follow-up appointments with the EP and Interventional Cardiology teams, besides, his PCP. Medication Reconciliation: Legend: Stopped, New, Changed, Added to list Medication List Medication Directions Comments Action/Plan aspirin, enteric coated (ASPIRIN, ENTERIC COATED) 81 mg EC tablet Take 1 tablet by mouth once daily. Decreased from 325mg once daily Discontinued: 01/23/2024 5:32 PM cephALEXin (KEFLEX) 500 mg capsule Take 1 capsule by mouth every 12 hours. Aware levothyroxine (SYNTHROID) 75 mcg tablet Take one pill daily for 7 days/week TSH Date Value Ref Range Status 09/20/2023 0.785 0.270 - 4.200 mIU/L Final Discontinued: 01/23/2024 5:32 PM therapeutic multivitamin tablet Take 1 tablet by mouth daily with breakfast. Preferred pharmacy: [facility] [address] [place] [address] [address] [facility] [phone] [address] [facility] [address] [facility] [place] [address] Re[address] By [facility] [phone] [address] [facility] [address] [facility] [address] [facility] [address] [facility] [address] Estimated Creatinine Clearance: 55.6 mL/min (based on SCr of 0.86 mg/dL). Estimated Glomerular Filtration Rate (mL/min/1.73m ) Date Value 01/23/2024 84 eGFR- (no units) Date Value 03/13/2021 >60 Additional follow up: Next 5 Appointments Date and Time Provider Department Dept Phone 02/24/2024 3:00 PM Lalita Perkins C[facility] [phone] 03/04/2024 2:15 PM [facility]ICE [facility] EP [facility] [phone] 04/06/2024 8:00 AM Jesus Taylor [facility] [phone] Interventions Made: None Pharmacist Recommendations Made None Care Coordination: None at this time Time spent on patient: 15-30 minutes Christiano Conner RPh January 27, 2024 8:42 AM documented in this encounterOhiohealth [facility]08-23-2024 History of Present illness Narrative* Shima Tadeo APRN.CNP, DNP - 01/16/2024 3:17 PM EDT I spoke with Ruperto Castillo. Device check within the last 6 months: n/a Is patient taking GLP-1 agonist? no Is patient taking SGLT2 Inhibitors? no Stop taking anticoagulation: n/a Contrast Dye Allergy: no Dental clearance within last 6 months: 01/12 KCCQ Survey Completed: 01/15 Surgeon note documented: 01/14 No fasting is needed on pre-op day. Shima Tadeo APRN.CARL HANKS [facility]. Please schedule Ruperto Castillo, [phone] for Transcatheter Mitral Valve in Valve Replacement with Pickett 29mm S3 + JERRY. Procedure on: 01/20/2024 Patient is currently admitted and will remain in hospital until after procedure. Please place Structural lab schedule on : 01/20/2024 at 0730 CPT: 0483T Diag: T82.857A MANAGER FINANCIAL: Performing Physician: Dr. Aldana OR: 81 1st Surgeon: Dr. Gallegos CAMILA schedule- intra/op Patient also needs INSURANCE PRECERTIFICATION SURVIVAL RATE GREATER THAN 1 YEAR____yes___(LOOKING FOR A YES) EF ___58%__(GREATER THAN 50%) Thank-you. Request sent to scheduling. Shima Tadeo APRN.CNP, DNP documented in this encounterOhiohealth Dublin [facility]08-23-2024 History of Present illness Narrative* Shima Tadeo APRN.CARL HANKS - 01/16/2024 12:47 PM EDT Multidisciplinary Cardiac Team Review TRANSCATHETER MITRAL and TRICUSPID THERAPIES (TMTT) The below documentation is based on a mitral / tricuspid valve team discussion amongst the multidisciplinary team Attendees: Dr. Aldana, Dr. Cvaazos, Dr. Avery, Dr. Juarez, Dr. Chao, Dr. Lozoya, Dr. Garcia, Dr. Troncoso, Dr. Denise, Dr. Cortes, Dr. Talley, Dr. Montes, Dr. Heath, Dr. Nolan, Dr. Morales, Cade Santos CNP PATIENT NAME: Ruperto Castillo DATE: January 16, 2024 Reason: MS Team Members Seen/ Presenting Physician: Dr. Jovan Gallegos Discussion / recommendations: After review and discussion of patient presentation, the following thoughts / recommendations were made. CAMILA limited due to aborted procedure. CT reviewed. Small neoLVOT will need MViV with JERRY. Looks like right pleural effusion may need drained as well. Will see today. Possible procedure on Friday 01/19. Scheduling will be handled by: CVM coordinator The patient will be contacted in the next few days/weeks to discuss the team recommendations. This abstract and interpretation of the conversations amongst the mitral / tricuspid MDT members has been completed by: Shima Tadeo APRN.CNP, DNP documented in this encounterOhiohealth Dublin [facility] Hospital08-20-2024 History of Present illness Narrative* Gloria White DDS - 01/13/2024 2:33 PM EDT Images from the original note were not included. [facility] Maxillof[facility]st[facility] CHIEF COMPLAINT: Dental clearance HISTORY OF PRESENT ILLNESS: Ruperto Castillo is a 88 year old male being seen for dental consultation at the request of Dr. Zac Mccloud to open-heart surgery. The patient's last dental visit was August 2023 for dental cleaning and exam. Pain:He denies odontalgia today. PROBLEM LIST: ACTIVE PROBLEM LIST Family History of Malignant Neoplasm of Gastrointestinal Tract Personal history of poliomyelitis Acquired Hypothyroidism Drug-Induced Osteoporosis [id number] Rheumatic Heart Disease Mitral Stenosis With Insufficiency Pfo (Patent Foramen Ovale) Nutrition Disorder Summary History of Mitral Valve Replacement With Bioprosthetic Valve History of Colonic Polyps Chronic Constipation Pulmonary Hypertension (Hcc) Acute Decompensated Heart Failure (Hcc) Congestive Heart Failure (Hcc) Acute On Chronic Respiratory Failure (Hcc) Pleural Effusion Rheumatic Aortic Stenosis Rheumatic Tricuspid Insufficiency Paroxysmal Atrial Fibrillation (Hcc) Mitral Valve Stenosis, Rheumatic Prosthetic Mitral Valve Failure Requiring Replacement CURRENT MEDICATIONS: Current Facility-Administered Medications on File Prior to Visit Medication furosemide 80 mg injection (LASIX) potassium chloride ER 10-60 mEq tab(s) (KLOR-CON M10) iv contrast (radiology procedure) senna 8.6 mg tab(s) (SENOKOT) polyethylene glycol 3350 17 g packet NaCl 0.9% iv flush bag heparin 5,000 Units injection acetaminophen 650 mg tab(s) (TYLENOL) levothyroxine 75 mcg tab(s) (SYNTHROID) aspirin, enteric coated 81 mg tab(s) Current Outpatient Medications on File Prior to Visit Medication Sig potassium chloride ER (KLOR-CON M10) 10 mEq tablet Take 10 mEq by mouth two times a day. bumetanide (BUMEX) 2 mg tablet Take 2 mg by mouth once daily. (Patient not taking: Reported on 01/12/2024) levothyroxine (SYNTHROID) 75 mcg tablet Take one pill daily for 7 days/week aspirin, enteric coated (ASPIRIN, ENTERIC COATED) 325 mg EC tablet Take 1 tablet by mouth once daily. Take with food. therapeutic multivitamin tablet Take 1 tablet by mouth daily with breakfast. ALLERGIES: ALLERGIES Allergen Reactions Alendronate Unknown Fosamax [Alendronat* Intolerance musculoskeletal pain CLINICAL EXAMINATION: General appearance: healthy, alert, well hydrated, pleasant, no distress. Extraoral, Head and Neck exam: No extraoral swelling or erythema Parotid and submandibular glands soft, nonpainful to palpation bilaterally No lymphadenopathy V1, V2, V3, CN VII intact bilaterally Intraoral Soft Tissues: Clear saliva extruded from bilateral Aki's and Alec's ducts. Tongue soft and non-tender with no apparent lesions. Buccal mucosa without lesions bilaterally. Hard palate is WNL. Soft palate is WNL. Pharynx is WNL. Floor of mouth is WNL. Gingival tissues are within normal limits. Dentition: Caries:None Restorable fracture of teeth #7,3,8, 10 and fractured #11 with no pain/or apical pathology Retained root tips: None Pain to percussion: None Mobility: Grade 1 #25 Oral hygiene: fair. Radiographic examination: Panorex dated 01-13-24 Normal trabecular and cortical bone pattern. No apical radiolucencies noted. Caries: None. ASSESSMENT: The oral cavity and dentition were examined and found to be without signs of acute odontogenic infection. There is low risk of perioperative dental complication with this patient. RECOMMENDATIONS: The patient is at low risk of perioperative complication from an oral health standpoint. The procedure including risks, benefits, options and personnel performing the procedure was discussed with the patient. Ruperto Castillo expressed understanding and agreed to proceed. The opinions rendered will be communicated back to the referring provider via shared electronic medical record. Gloria White DDS documented in this encounterOhiohealth Dublin [facility] Hospital08-19-2024 Nurse Note* Magdalene Coffey RN - 01/12/2024 7:38 AM EDT AMBULATORY PATIENT EDUCATION TOPIC: SURVIVAL SKILLS: Procedure READINESS TO LEARN COGNITIVE ABILITY: Alert and oriented MOTIVATION TO LEARN: Eager FAMILY SUPPORT: None - Unavailable/disinterested INSTRUCTION PROVIDED TO: Patient PATIENT LEARNS BEST BY: Individual Instruction FACTORS AFFECTING LEARNING: None PHYSICAL LIMITATIONS AFFECTING LEARNING: None LEARNING RESPONSE DIAGNOSIS: CAMILA METHOD OF INSTRUCTION: Individual instruction Verbal instruction PATIENT / FAMILY RESPONSE: Verbalizes understanding of: POST-PROCEDURE INSTRUCTIONS-Correct actionsto take to reduce post procedure complications PRE-PROCEDURE INSTRUCTIONS-Correct action to take to follow pre-procedure instructions FOLLOW-UP PLAN: Complete - No need for follow-up SUPPLEMENTAL MATERIAL: Post op discharge instructions Post CAMILA instructions given REFERRAL (RECOMMENDATION): None Electronically Signed By Magdalene Coffey RN In Department: CARDIOLOGY [facility] Nurse Note* Magdalene Coffey RN - 01/12/2024 7:38 AM EDT AMBULATORY PATIENT EDUCATION TOPIC: SURVIVAL SKILLS: Procedure READINESS TO LEARN COGNITIVE ABILITY: Alert and oriented MOTIVATION TO LEARN: Eager FAMILY SUPPORT: None - Unavailable/disinterested INSTRUCTION PROVIDED TO: Patient PATIENT LEARNS BEST BY: Individual Instruction FACTORS AFFECTING LEARNING: None PHYSICAL LIMITATIONS AFFECTING LEARNING: None LEARNING RESPONSE DIAGNOSIS: CAMILA METHOD OF INSTRUCTION: Individual instruction Verbal instruction PATIENT / FAMILY RESPONSE: Verbalizes understanding of: POST-PROCEDURE INSTRUCTIONS-Correct actionsto take to reduce post procedure complications PRE-PROCEDURE INSTRUCTIONS-Correct action to take to follow pre-procedure instructions FOLLOW-UP PLAN: Complete - No need for follow-up SUPPLEMENTAL MATERIAL: Post op discharge instructions Post CAMILA instructions given REFERRAL (RECOMMENDATION): None Electronically Signed By Magdalene Coffey RN In Department: CARDIOLOGY documented in this encounterOhiohealth Dublin [facility] Hospital08-12-2024 History of Present illness Narrative* Jesus Taylor MD - 01/05/2024 7:20 PM EDT Transitional Care Management TCM Eligibility Documentation No recent care coordination documentation related to TCM found. Provider Documentation Ruperto Castillo is a 88 year old male here today for a follow up from recent hospitalization. I have reviewed the patient's hospital course including discharge summary, discharge medications , and follow up needs with the patient and any family members present at today's visit. HPI 7 day TCM Pt here today for a 7 day TCM. Pt admitted into [facility] on 12/31/23 and discharged on 01/03/24. On discharge pt was advised to f/u with PCP in 3-5 days to recheck BMP due to starting Bumex 2 mg po daily. Pt's Lasix 40 mg once daily was stopped during admission. Pt currently follows with [facility]. He has a f/u with them on 01/07/24. CHF - Notes not having much issues with breathing at this time. Does note that breathing for him seems to be worse at night when laying down, but can be during the day as well with activity. Denies any edema. Notes prior to admission he was having issues with shortness of breath and rapid heart rate. States he doesn't have anxiety, but feels like everything is closing in on him. Pt currently taking Bumex 2 mg once daily. States this is his fourth day on Bumex. Does note when he took the Lasix he urinated a lot, not urinating as frequent with Bumex. Was advised to drink 6 cups of fluids in 24 hours. 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 Workup in the ED included T97.2, heart 112, respiratory rate 26, initially 81% on room air improving transiently to 91% on 5 L eventually placed on BiPAP with 35% FiO2 with most recent repeat vital signs T98, heart rate 100, BP 105/61, respiratory rate 30, 96% on BiPAP, CBC with WC 11.6, hematin 14.2, MCV 90.9, platelet 242 with left shift, BMP with BUN/creatinine 24/1.07, GFR 70, glucose 139, BNP 477.7, respiratory ED rapid panel pending upon evaluation, troponin pending upon evaluation, chest x-ray with moderate exertional edema and effusions, EKG with sinus tachycardia with no acute evidence of ischemia. In the ED patient administered IV Lasix with Vanessa placed and transitioned on BiPAP as noted. Patient notes he feels considerably improved following BiPAP initiation and IV Lasix diuresis. He is able to talk in full sentences and is asking even to have the BiPAP off. He notes that he recently stopped his diuretic because he still felt short of breath and thought this may be the cause unfortunately but did not notify cardiology at all. He states he has a visit with cardiology01/01/2024. Hospital Course: 1. Acute hypoxic respiratory failure secondary to acute on chronic diastolic CHF pulmonary hypertension and paroxysmal [place]-75-year-old male with a history of severe mitral valve stenosis presented to the hospital with increasing shortness of breath. He had discontinued his Lasix because he thought this was causing his shortness of breath. 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 Had multiple educational sessions with him unclear whether or not he has a full understanding as to what he needs to do from his volume status perspective. We did switch him to Bumex 2 mg p.o. daily per cardiology's recommendations and he was able to diurese very well and did not require oxygen on discharge. Repeat echo does demonstrate impaired EF of 65% with a PASP of 60 to 65 mmHg. His mitral valve gradient is 16 up from 14 back in July, when he had his surgery back in 2013 his gradient was 23. I do recommend that he follow-up with cardiology as an outpatient for monitoring of his mitral valve, unclear if he would be a candidate for a second valve he has significant fear that his valve is getting worse and nothing will help him unless hehas another valve replacement. I discussed with him the need to follow-up with his PCP in 3 to 5 days to monitor his renal function given the Bumex. And we did discuss the role for a fluid restriction. On the day of discharge he was -2.5 L and down approximately 4 pounds. Discontinued furosemide [Lasix] 40 mg tablet 40 mg PO DAILY Qty: 90 3RF Patient Comments: stopped taking this past friday12/29/23 New bumetanide 2 mg Tablet 2 mg PO DAILY 30 Days Qty: 30 0RF PHYSICAL EXAMINATION BP 104/62 (BP Site: Right Arm, BP Position: Sitting, BP Cuff Size: Regular Adult) Pulse 80 Resp18 Wt 65.6 kg (144 lb 10 oz) SpO2 95% BMI 24.10 kg/m GENERAL: well appearing, alert, in no acute distress HEART: regular rate and rhythm. No murmur, rubs or gallops. LUNGS: clear to auscultation, no wheezing, rhonchi, or crackles EXTREMITIES: no lower extremity edema. No skin discoloration. ASSESSMENT/PLAN: 1. Hospital discharge follow-up - ICD9: V67.59, ICD10: Z09 (primary diagnosis) 2. Acute exacerbation of chronic heart failure (HCC) - ICD9: , ICD10: I50.9 Continue current medications. Check BMP tomorrow Follow with Cardiology - BASIC METABOLIC PANEL 3. H/O mitral valve replacement - ICD9: V43.3, ICD10: Z95.2 Follow with Cardiology Notify of BMP results Follow up prn Jesus Taylor MD documented [facility] History of Present illness Narrative* Jesus Taylor MD - 10/03/2023 9:00 AM EDT Chief Complaint Patient presents with: Follow Up HPI Ruperto Castillo is a 87 year old male who presents here today for a follow up. Pt here today for his routine follow up. 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 HM: Behavioral screening: denies feeling depressed, hopeless, anxious, etc. Uses Docusate Sodium, 8 tabs per day for chronic constipation. Denies any urinary issues. Hx of s/p MV replacement and Pulm HTN. Follows with [facility]. Denies checking BP at homeor having symptoms of chest pain, sob or dizziness. Had Echo done recently that showed his valve was not closing as well, had this replaced in past. Follows with [facility] every 6 months[address] Dr. 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 Thyroid: Stable on current regimen of Synthroid 75 mcg once daily. Denies any missed dosages. Monitored through routine labs. Was previously referred to Endo for overheating, to Dr. Casey. She dx him with hypogonadism, but he declined treatment. No longer seeing Chloe. Osteo: Taking Calcium and Vitamin D daily. Has previously tried Fosamax but did not tolerate it. Has previously taken Boniva. Noted at last visit some issues with swallowing his multivitamin. Past medical history, appointments, medications, allergies reviewed. Previous Medical History PAST MEDICAL HISTORY Diagnosis Date Diverticulosis of colon (without mention of hemorrhage) History of transfusion Mitral stenosis Osteoporosis Polio Hx as a child. left arm weakness/atrophy. 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 AGE 4 Unspecified hypothyroidism Previous Surgical History PAST SURGICAL HISTORY Procedure Laterality Date COLONOSCOPY FLX DX W/COLLJ SPEC WHEN PFRMD 07/31/2001 Colonoscopy COLONOSCOPY FLX DX W/COLLJ SPEC WHEN PFRMD 12/28/2007 Colonoscopy COLONOSCOPY FLX DX W/COLLJ SPEC WHEN PFRMD 03/07/2014 Colonoscopy COLONOSCOPY FLX DX W/COLLJ SPEC WHEN PFRMD 03/10/2017 no repeat needed COLONOSCOPY FLX DX W/COLLJ SPEC WHEN PFRMD 11/21/2020 HEART SURGERY HX I/D PERIANAL ABSCESS, SUPERFICIAL 03/23/2012 Right anterior perianal abscess PAST SURGICAL HISTORY OF Hemorrhoidectomy PAST SURGICAL HISTORY OF right rotator cuff REPLACEMENT MITRAL VALVE W/CARDIOPULMONARY BYP 2013 Mitral valve replacement SURG TX ANAL FISTULA INTERSPHINCTERIC 04/09/2012 TONSILLECTOMY PRIMARY/SECONDARY <AGE 14 Tonsillectomy Family History FAMILY HISTORY Problem Relation Age of Onset Colon Cancer Father Osteoporosis Mother Ischemic Heart Disease Sister d. 65 during CABG. other (Mitral valve disease) Sister rheumatic fever Hx. Patient Allergies ALLERGIES Allergen Reactions Fosamax [Alendronat* Intolerance musculoskeletal pain Current Medications Current Outpatient Medications on File Prior to Visit Medication Sig levothyroxine (SYNTHROID) 75 mcg tablet Take one pill daily for 7 days/week aspirin, enteric coated (ASPIRIN, ENTERIC COATED) 325 mg EC tablet Take 1 tablet by mouth once daily. Take with food. therapeutic multivitamin tablet Take 1 tablet by mouth daily with breakfast. No current facility-administered medications on file prior to visit. Social History Social History Tobacco Use Smoking status: Never Smokeless tobacco: Never Vaping Use Vaping Use: Never used Substance Use Topics Alcohol use: No Drug use: No EXAM: BP 118/72 Pulse 64 Resp 16 Wt 67.2 kg (148 lb 3.2 oz) BMI 24.69 kg/m General Appearance: Well appearing, alert, in no acute distress, well-hydrated, well nourished.. Lungs: Lungs clear to auscultation. No wheezing, rhonchi, rales.. Heart: RRR without murmur, gallop, or rubs. No ectopy. Health Maintenance List RSV Vaccine(1 - 1-dose 60+ series) Never done Shingrix Vaccine(2 of 3) due on 10/14/2014 Advance Directive Discussion due on 05/26/2023 Behavioral Health Screening Never done Covid-19 Vaccine(1 - season) due on 10/02/2024 DTaP,Tdap,Td Vaccine(8 - Td or Tdap) due on 05/02/2025 Diabetes Screening due on 09/19/2026 Influenza Vaccine Completed Pneumococcal Vaccine: 65+ Completed Data reviewed Appointment on 09/20/2023 Component Date Value WBC 09/20/2023 6.94 RBC 09/20/2023 4.18 (L) Hemoglobin 09/20/2023 12.7 (L) Hematocrit 09/20/2023 39.6 MCV 09/20/2023 94.7 MCH 09/20/2023 30.4 MCHC 09/20/2023 32.1 RDW-CV 09/20/2023 14.3 Platelet Count 09/20/2023 219 MPV 09/20/2023 9.8 Absolute nRBC 09/20/2023 <0.01 Protein, Total 09/20/2023 7.4 Albumin 09/20/2023 4.1 Calcium, Total 09/20/2023 9.6 Bilirubin, Total 09/20/2023 0.3 Alkaline Phosphatase 09/20/2023 67 AST 09/20/2023 22 ALT 09/20/2023 15 Glucose 09/20/2023 97 BUN 09/20/2023 20 Creatinine 09/20/2023 1.12 Sodium 09/20/2023 138 Potassium 09/20/2023 4.0 Chloride 09/20/2023 101 CO2 09/20/2023 26 Anion Gap 09/20/2023 11 Estimated Glomerular Nirav* 09/20/2023 64 TSH 09/20/2023 0.785 ASSESSMENT/PLAN: 1. Acquired hypothyroidism - ICD9: 244.9, ICD10: E03.9 (primary diagnosis) - Instructed patient on importance of taking on an empty stomach either first thing in the morning or at bedtime. Continue current medications. 2. Pulmonary hypertension (HCC) - ICD9: 416.8, ICD10: I27.20 Continue with Cardi 3. H/O mitral valve replacement - ICD9: V43.3, ICD10: Z95.2 Continue with Cardio 4. Rheumatic heart disease - ICD9: 398.90, ICD10: I09.9 Continue with Cardio 5. Chronic constipation - ICD9: 564.00, ICD10: K59.09 Stable 6. Drug-induced osteoporosis - ICD9: 733.09, E947.9, ICD10: M81.8, T50.905A - Reviewed the need for Calcium and Vitamin D supplements and weight bearing exercise as tolerated Follow up in 6 months with labs prior. I agree with the Chief Complaint, ROS, and Past Histories independently gathered by the clinical personal support worker and the remaining scribed note accurately describes my personal service to the patient. Medical Decision Making: Problems: Moderate: 2+ stable chronic illnesses Data: Unique test result(s) reviewed: 3+ Unique test(s) ordered: 3+ Risk: Moderate: Drug management Medical Decision Making Level: 4 - Moderate Jesus Taylor MD The documentation for this note was completed by Moni Harden MA acting as scribe for Jesus Taylor MD. October 03, 2023 8:49 AM. Moni Harden MA documented in this encounterOhio[facility]03-11-2024 Miscellaneous Notes* Telephone Encounter - Tyson Kyle APRN.CNP - 08/04/2023 9:41 AM EDT The following approved medication requests have been transmitted electronically. Requested Prescriptions Pending Prescriptions Disp Refills levothyroxine (SYNTHROID) 75 mcg tablet 90 tablet 3 Sig: Take one pill daily for 7 days/week Tyson Kyle APRN.CNP * Telephone Encounter - Maribel Tilley - 08/04/2023 9:23 AM EDT Pharmacy verified in [facility] Patient has been identified by name and date of : Yes Patient aware RX will be sent to pharmacy. No need to notify patient. Patient phones for refill(s): Requested Prescriptions Pending Prescriptions Disp Refills levothyroxine (SYNTHROID) 75 mcg tablet 90 tablet 3 Sig: Take one pill daily for 7 days/week Date of last office visit : 04/29/2023 Date of next office visit : 10/03/2023 Last 2 Encounter Wt Readings: Date: Wt: 04/29/2023 67 kg (147 lb 12.8 oz) 10/03/2022 67 kg (147 lb 9.6 oz) Not applicable Please advise. Maribel Chaparro documented in this encounterOhio[facility]12-05-2023 History of Present illness Narrative* Jesus Taylor MD - 04/29/2023 10:00 AM EST Chief Complaint Patient presents with: 6 Month Exam Immunizations: Flu vaccination CASEY Castillo is a 87 year old male who presents here today for a 6 month follow up. Still working on the barn and house [place] the farm. Pt did not get his blood work completed fasting, he had already eaten breakfast. No urinary issues. Has chronic constipation, no other stomach issues. Has used Docusate Sodium 8 tabs per day but doesn't feel that helps much. Does not check BP at home. Denies any chest pain, sob or dizziness. Follows with [facility]. Pt is s/p MV replacement and hx of Pulm HTN. Has routine monitoring by Cardiology. Thyroid: On current regimen of Synthroid 75 mcg 6 days per week, denies any missed dosages. Was referred to Endo due to overheating. Dr. Casey dx him with hypogonadism but he declined treatment. Thyroid showed that he's still on a low dosage. No longer follows with Endo. Osteo: Taking Calcium and Vitamin D. Has not tolerated Fosamax in the past. Was on Boniva previously. Not currently taking any medications. Has noticed some issues with swallowing his multivitamin, mostly tablets. He denies having any issues with swallowing food. Past medical history, appointments, medications, allergies reviewed. Previous Medical History PAST MEDICAL HISTORY Diagnosis Date Diverticulosis of colon (without mention of hemorrhage) History of transfusion Mitral stenosis Osteoporosis Polio Hx as a child. left arm weakness/atrophy. 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 AGE 4 Unspecified hypothyroidism Previous Surgical History PAST SURGICAL HISTORY Procedure Laterality Date COLONOSCOPY FLX DX W/COLLJ SPEC WHEN PFRMD 07/31/2001 Colonoscopy COLONOSCOPY FLX DX W/COLLJ SPEC WHEN PFRMD 12/28/2007 Colonoscopy COLONOSCOPY FLX DX W/COLLJ SPEC WHEN PFRMD 03/07/2014 Colonoscopy COLONOSCOPY FLX DX W/COLLJ SPEC WHEN PFRMD 03/10/2017 no repeat needed COLONOSCOPY FLX DX W/COLLJ SPEC WHEN PFRMD 11/21/2020 HEART SURGERY HX I/D PERIANAL ABSCESS, SUPERFICIAL 03/23/2012 Right anterior perianal abscess PAST SURGICAL HISTORY OF Hemorrhoidectomy PAST SURGICAL HISTORY OF right rotator cuff REPLACEMENT MITRAL VALVE W/CARDIOPULMONARY BYP 2013 Mitral valve replacement SURG TX ANAL FISTULA INTERSPHINCTERIC 04/09/2012 TONSILLECTOMY PRIMARY/SECONDARY <AGE 14 Tonsillectomy Family History FAMILY HISTORY Problem Relation Age of Onset Colon Cancer Father Osteoporosis Mother Ischemic Heart Disease Sister d. 65 during CABG. other (Mitral valve disease) Sister rheumatic fever Hx. Patient Allergies ALLERGIES Allergen Reactions Fosamax [Alendronat* Intolerance musculoskeletal pain Current Medications Current Outpatient Medications on File Prior to Visit Medication Sig levothyroxine (SYNTHROID) 75 mcg tablet Take one pill daily for 7 days/week Docusate Sodium 250 mg capsule Takes 8 pills per day aspirin, enteric coated (ASPIRIN, ENTERIC COATED) 325 mg EC tablet Take 1 tablet by mouth once daily. Take with food. therapeutic multivitamin tablet Take 1 tablet by mouth daily with breakfast. No current facility-administered medications on file prior to visit. Social History Social History Tobacco Use Smoking status: Never Smokeless tobacco: Never Vaping Use Vaping Use: Never used Substance Use Topics Alcohol use: No Drug use: No EXAM: BP 110/68 Pulse 64 Resp 16 Wt 67 kg (147 lb 12.8 oz) BMI 24.62 kg/m General Appearance: Well appearing, alert, in no acute distress, well-hydrated, well nourished.. Lungs: Lungs clear to auscultation. No wheezing, rhonchi, rales.. Heart: RRR without murmur, gallop, or rubs. No ectopy. Health Maintenance List RSV Vaccine(1 - 1-dose 60+ series) Never done Shingrix Vaccine(2 of 3) due on 10/14/2014 Influenza Vaccine(1) due on 01/24/2023 Covid-19 Vaccine(1) due on 10/04/2023 DTaP,Tdap,Td Vaccine(8 - Td or Tdap) due on 05/02/2025 Diabetes Screening due on 10/02/2025 Advance Directive Discussion Completed Depression Assessment Completed Pneumococcal Vaccine: 65+ Completed Data reviewed Appointment on 04/28/2023 Component Date Value TSH 04/28/2023 0.396 WBC 04/28/2023 6.30 RBC 04/28/2023 4.29 Hemoglobin 04/28/2023 13.5 Hematocrit 04/28/2023 41.4 MCV 04/28/2023 96.5 MCH 04/28/2023 31.5 MCHC 04/28/2023 32.6 RDW-CV 04/28/2023 13.8 Platelet Count 04/28/2023 171 MPV 04/28/2023 10.4 Absolute nRBC 04/28/2023 <0.01 Protein, Total 04/28/2023 6.9 Albumin 04/28/2023 3.9 Calcium, Total 04/28/2023 9.4 Bilirubin, Total 04/28/2023 0.3 Alkaline Phosphatase 04/28/2023 66 AST 04/28/2023 22 ALT 04/28/2023 19 Glucose 04/28/2023 108 (H) BUN 04/28/2023 19 Creatinine 04/28/2023 1.06 Sodium 04/28/2023 139 Potassium 04/28/2023 3.7 Chloride 04/28/2023 102 CO2 04/28/2023 25 Anion Gap 04/28/2023 12 Estimated Glomerular Nirav* 04/28/2023 69 ASSESSMENT/PLAN: 1. Pulmonary hypertension (HCC) - ICD9: 416.8, ICD10: I27.20 (primary diagnosis) Stable Continue with Cardio 2. Chronic constipation - ICD9: 564.00, ICD10: K59.09 stable 3. Rheumatic heart disease - ICD9: 398.90, ICD10: I09.9 Continue with Cardio 4. H/O mitral valve replacement - ICD9: V43.3, ICD10: Z95.2 Continue with Cardio 5. Acquired hypothyroidism - ICD9: 244.9, ICD10: E03.9 - Instructed patient on importance of taking on an empty stomach either first thing in the morning or at bedtime. Continue current medications. 6. Need for influenza vaccination - ICD9: V04.81, ICD10: Z23 - INFLUENZA VACCINE, PRSV FREE, AGE 65+ YR, HIGH DOSE, QUADRIVALENT (FLUZONE HIGH-DOSE) Follow up in 4-5 months with labs prior. I agree with the Chief Complaint, ROS, and Past Histories independently gathered by the clinical personal support worker and the remaining scribed note accurately describes my personal service to the patient. Medical Decision Making: Problems: Low: Stable chronic illness Data: Unique test result(s) reviewed: 2 Unique test(s) ordered: 2 Risk: Moderate: Drug management Medical Decision Making Level: 4 - Moderate Jesus Taylor MD The documentation for this note was completed by Moni Harden Ma acting as scribe for Jesus Taylor MD. April 29, 2023 9:55 AM. Moni Harden Ma documented in this encounterOhio[facility]05-11-2023 History of Present illness Narrative* Jesus Taylor MD - 10/03/2022 8:00 AM EDT Chief Complaint Patient presents with: F/U 6 Month HPI Ruperto Castillo is a 86 year old male who presents here today for his 6 month follow up. Pt here today for his routine follow up. GI/Uro - Denies any stomach or urinary issues. Has chronic constipation his entire life. Takes Docusate Sodium 250 mg, 8 tablets per day. He just increased that recently from 4 pills to 6 pills to now 8 pills. He states that the stool is softer but still not having BM's daily. Will use Miralax onceand awhile. Eats high fiber diet. May need to f/u with GI. Colonoscopy done 2020. Cardio - No chest pains, dizziness, or SOB. Follows with Cardio at [facility]. S/P MV replacement, pulm htn. Had Echo done recently. This is monitored yearly by Cardiology Thyroid: Takes Synthroid 75 mcg 6 days per week. Denies any missed dosages. He is still having issues with over heating especially at night. His thyroid labs show that he is still on a low dose of synthroid treatment. He thinks he will be worse if he goes back to 7 days a week of thyroid medication. Requested a referral to Dr. Jacinto Corona who he saw on 08/19/22. Pt has hypogonadism, but declined treatment. Takes a multivitamin and 325 mg Aspirin per day. Osteporosis: Did not tolerate Fosamax. Was on Boniva in past. He takes Calcium and Vitamin. Declined completing BMD at Dr. Casey's office. HM - Declines Covid vaccines. Declines feeling down, depressed or hopeless. Depression screening tool completed and reviewed. Based on score and interview, patient is not at risk for depression. Screening tool discussed with patient, and I recommended no further intervention at this time Pt has living trust Past medical history, appointments, medications, allergies reviewed. Previous Medical History PAST MEDICAL HISTORY Diagnosis Date Diverticulosis of colon (without mention of hemorrhage) History of transfusion Mitral stenosis Osteoporosis Polio Hx as a child. left arm weakness/atrophy. 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 AGE 4 Unspecified hypothyroidism Previous Surgical History PAST SURGICAL HISTORY Procedure Laterality Date COLONOSCOPY FLX DX W/COLLJ SPEC WHEN PFRMD 07/31/2001 Colonoscopy COLONOSCOPY FLX DX W/COLLJ SPEC WHEN PFRMD 12/28/2007 Colonoscopy COLONOSCOPY FLX DX W/COLLJ SPEC WHEN PFRMD 03/07/2014 Colonoscopy COLONOSCOPY FLX DX W/COLLJ SPEC WHEN PFRMD 03/10/2017 no repeat needed COLONOSCOPY FLX DX W/COLLJ SPEC WHEN PFRMD 11/21/2020 HEART SURGERY HX I/D PERIANAL ABSCESS, SUPERFICIAL 03/23/2012 Right anterior perianal abscess PAST SURGICAL HISTORY OF Hemorrhoidectomy PAST SURGICAL HISTORY OF right rotator cuff REPLACEMENT MITRAL VALVE W/CARDIOPULMONARY BYP 2013 Mitral valve replacement SURG TX ANAL FISTULA INTERSPHINCTERIC 04/09/2012 TONSILLECTOMY PRIMARY/SECONDARY <AGE 14 Tonsillectomy Family History FAMILY HISTORY Problem Relation Age of Onset Colon Cancer Father Osteoporosis Mother Ischemic Heart Disease Sister d. 65 during CABG. other (Mitral valve disease) Sister rheumatic fever Hx. Patient Allergies ALLERGIES Allergen Reactions Fosamax [Alendronat* Intolerance musculoskeletal pain Current Medications Current Outpatient Medications on File Prior to Visit Medication Sig levothyroxine (SYNTHROID) 75 mcg tablet Take one pill daily for 7 days/week Docusate Sodium 250 mg capsule Takes 8 pills per day polyethylene glycol 3350 (MIRALAX, GLYCOLAX) 17 gram/dose powder Use as directed for Miralax / Gatorade Bowel Prep Kit aspirin, enteric coated (ASPIRIN, ENTERIC COATED) 325 mg EC tablet Take 1 tablet by mouth once daily. Take with food. therapeutic multivitamin tablet Take 1 tablet by mouth daily with breakfast. No current facility-administered medications on file prior to visit. Social History Social History Tobacco Use Smoking status: Never Smokeless tobacco: Never Vaping Use Vaping Use: Never used Substance Use Topics Alcohol use: No Drug use: No EXAM: BP 108/62 (BP Site: Right Arm, BP Position: Sitting, BP Cuff Size: Regular Adult) Pulse 60 Resp16 Wt 67 kg (147 lb 9.6 oz) BMI 24.59 kg/m General Appearance: Well appearing, alert, in no acute distress, well-hydrated, well nourished.. Lungs: Lungs clear to auscultation. No wheezing, rhonchi, rales.. Heart: RRR without murmur, gallop, or rubs. No ectopy. Health Maintenance List COVID-19 VACCINE(1) Never done SHINGRIX VACCINE(2 of 3) due on 10/14/2014 ADVANCE DIRECTIVE DISCUSSION Never done DEPRESSION ASSESSMENT due on 05/26/2022 DIABETES SCREEN due on 03/13/2024 DTAP,TDAP,TD(7 - Td or Tdap) due on 05/02/2025 INFLUENZA Completed PNEUMOCOCCAL: 65+ Completed Data reviewed Appointment on 10/02/2022 Component Date Value WBC 10/02/2022 5.83 RBC 10/02/2022 3.99 (A) Hemoglobin 10/02/2022 12.4 (A) Hematocrit 10/02/2022 38.8 (A) MCV 10/02/2022 97.2 MCH 10/02/2022 31.1 MCHC 10/02/2022 32.0 RDW-CV 10/02/2022 13.9 Platelet Count 10/02/2022 168 MPV 10/02/2022 10.5 Absolute nRBC 10/02/2022 <0.01 Appointment on 08/07/2022 Component Date Value Testosterone 08/07/2022 165 (A) Prolactin 08/07/2022 7.5 TSH 08/07/2022 0.636 Free T4 08/07/2022 1.3 FSH 08/07/2022 47.0 (A) LH 08/07/2022 21.9 (A) ASSESSMENT/PLAN: 1. Acquired hypothyroidism - ICD9: 244.9, ICD10: E03.9 (primary diagnosis) - Instructed patient on importance of taking on an empty stomach either first thing in the morning or at bedtime. - continue current dose of Synthroid 0.075 mg Stable - TSH BLD - CBC 2. Chronic constipation - ICD9: 564.00, ICD10: K59.09 Follow with GI 3. H/O mitral valve replacement - ICD9: V43.3, ICD10: Z95.2 Follow with Cardiology - COMP METABOLIC PANEL 4. Pulmonary hypertension (HCC) - ICD9: 416.8, ICD10: I27.20 Follow with Cardiology - CBC - COMP METABOLIC PANEL Follow up in 6 months I agree with the Chief Complaint, ROS, and Past Histories independently gathered by the clinical personal support worker and the remaining scribed note accurately describes my personal service to the patient. Medical Decision Making: Problems: Moderate: 2+ stable chronic illnesses Data: Unique test result(s) reviewed: 2 Unique test(s) ordered: 3+ Risk: Moderate: Drug management Medical Decision Making Level: 4 - Moderate Jesus Taylor MD The documentation for this note was completed by Danya Whitman Ma acting as scribe for Jesus Taylor MD. October 03, 2022 8:07 AM. documented in this encounterOhio[facility]23 Miscellaneous Notes* Telephone Encounter - Tyson Kyle APRN.CNP - 08/15/2022 9:24 AM EDT Sent. The following approved medication requests have been transmitted electronically. Requested Prescriptions Pending Prescriptions Disp Refills levothyroxine (SYNTHROID) 75 mcg tablet 90 tablet 3 Sig: Take one pill daily for 7 days/week Tyson Kyle APRN.CNP * Telephone Encounter - Danya Whitman Ma - 08/15/2022 9:02 AM EDT Pt stopped in office and states that his regimen of Synthroid 75 mcg once weekly (7 day). Pt is requesting Rx to be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 Hypotension 10/21/2013 10/25/2013 Overview: WITH RESUMING LASIX AND AF, HOLDING LASIX, Saline bolus trend. 10/24/13 BP remains borderline low, will continue to hold lasix Hypoalbuminemia 10/21/2013 10/25/2013 Overview: Acute post op hypoalbuminemia (4.5 pre-op). - Nutrition consult : supplement. Mechanically assisted ventilation 10/20/2013 10/21/2013 Overview: Grade 3 airway. WTE when awake and stable. Intravascular volume depletion 10/20/2013 0 10/23/2013 Overview: Euvolemic now, normal CVP, +ve 2.5 liters in the last 24 hours. Acute postoperative pain 10/20/2013 018 Overview: -not requesting pain meds, will provide script for Ultram PRN Preop testing 10/19/2013 10/23/2013 Overview: Images from the original note were not included. [facility] Surgeon: Jose Cason M.D. Informed Consent Completed: Yes STS Score: 3.2% CAD: No Is intended procedure a CABG: No - is a beta enzo ordered? No - reason: no CAD H & P completed: Yes PA/LAT: Completed CT: N/A MRI: N/A LE US: N/A Cath: Yes - reviewed: Yes Echo:Completed EKG: Completed EF %: 60 PI's: N/A Carotid: N/A Mapping: N/A Dental: Completed PFT's: N/A Basename 10/19/13 0754 WBC 4.17 HB 13.9 HCT 40.8 PLT 161 INR 1.0 CREAT 1.00 UA: Normal HCG:N/A ABO/ABO Confirmed: Yes Blood ordered: No SA Swab: Yes - results: Pending Last Dose of Anticoagulation: none Op Note: N/A Pacemaker Check: N/A Consults: none DM: No Cardiac Surgical prep: Yes SIGNATURE: Agusto Noriega RN CHECKED BY: gerson DATE of SERVICE: 10/19/2013 TIME of SERVICE: 4:36 PM Skin cancer 06/14/2013 08/27/2017 Perianal abscess 03/23/2012 08/27/2017 Sprain and strain of unspeci fied site of shoulder and upper arm 02/17/2006 06/06/2010 Overview: pain/decr motion since 09/28 Cervicalgia 09/30/2005 06/06/2010 Polymyalgia rheumatica 03/11/2005 9 documented as of this encounter (statuses as of 10/03/2022) [facility] History of Past illness Narrative* Problem Noted Date Diagnosed Date Resolved Date A-fib 10/23/2013 08/12/2016 Overview: History: no prior hx Assessment: 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 Hypotension 10/21/2013 10/25/2013 Overview: WITH RESUMING LASIX AND AF, HOLDING LASIX, Saline bolus trend. 10/24/13 BP remains borderline low, will continue to hold lasix Hypoalbuminemia 10/21/2013 10/25/2013 Overview: Acute post op hypoalbuminemia (4.5 pre-op). - Nutrition consult : supplement. Mechanically assisted ventilation 10/20/2013 10/21/2013 Overview: Grade 3 airway. WTE when awake and stable. Intravascular volume depletion 10/20/2013 10/23/2013 Overview: Euvolemic now, normal CVP, +ve 2.5 liters in the last 24 hours. Acute postoperative pain 10/20/201308/2017 Overview: -not requesting pain meds, will provide script for Ultram PRN Preop testing 10/19/2013 10/23/2013 Overview: Images from the original note were not included. [facility] Surgeon: Jose Cason M.D. Informed Consent Completed: Yes STS Score: 3.2% CAD: No Is intended procedure a CABG: No - is a beta enzo ordered? No - reason: no CAD H & P completed: Yes PA/LAT: Completed CT: N/A MRI: N/A LE US: N/A Cath: Yes - reviewed: Yes Echo:Completed EKG: Completed EF %: 60 PI's: N/A Carotid: N/A Mapping: N/A Dental: Completed PFT's: N/A Basename 10/19/13 0754 WBC 4.17 HB 13.9 HCT 40.8 PLT 161 INR 1.0 CREAT 1.00 UA: Normal HCG:N/A ABO/ABO Confirmed: Yes Blood ordered: No SA Swab: Yes - results: Pending Last Dose of Anticoagulation: none Op Note: N/A Pacemaker Check: N/A Consults: none DM: No Cardiac Surgical prep: Yes SIGNATURE: Agusto Noriega RN CHECKED BY: gerson DATE of SERVICE: 10/19/2013 TIME of SERVICE: 4:36 PM Skin cancer 06/14/2013 08/27/2017 Perianal abscess 03/23/2012 08/27/2017 Sprain and strain of unspeci fied site of shoulder and upper arm 02/17/2006 06/06/2010 Overview: pain/decr motion since 09/28 Cervicalgia 09/30/2005 06/06/2010 Polymyalgia rheumatica 03/11/200507/28 documented as of this encounter (statuses as of 04/29/2023) [facility] History of Past illness Narrative* Problem Noted Date Diagnosed Date Resolved Date A-fib 10/23/2013 08/12/2016 Overview: History: no prior hx Assessment: 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 Hypotension 10/21/2013 10/25/2013 Overview: WITH RESUMING LASIX AND AF, HOLDING LASIX, Saline bolus trend. 10/24/13 BP remains borderline low, will continue to hold lasix Hypoalbuminemia 10/21/2013 10/25/2013 Overview: Acute post op hypoalbuminemia (4.5 pre-op). - Nutrition consult : supplement. Mechanically assisted ventilation 10/20/2013 10/21/2013 Overview: Grade 3 airway. WTE when awake and stable. Intravascular volume depletion 10/20/2013 10/23/2013 Overview: Euvolemic now, normal CVP, +ve 2.5 liters in the last 24 hours. Acute postoperative pain 10/20/201308/2017 Overview: -not requesting pain meds, will provide script for Ultram PRN Preop testing 10/19/2013 10/23/2013 Overview: Images from the original note were not included. [facility] Surgeon: Jose Cason M.D. Informed Consent Completed: Yes STS Score: 3.2% CAD: No Is intended procedure a CABG: No - is a beta enzo ordered? No - reason: no CAD H & P completed: Yes PA/LAT: Completed CT: N/A MRI: N/A LE US: N/A Cath: Yes - reviewed: Yes Echo:Completed EKG: Completed EF %: 60 PI's: N/A Carotid: N/A Mapping: N/A Dental: Completed PFT's: N/A Basename 10/19/13 0754 WBC 4.17 HB 13.9 HCT 40.8 PLT 161 INR 1.0 CREAT 1.00 UA: Normal HCG:N/A ABO/ABO Confirmed: Yes Blood ordered: No SA Swab: Yes - results: Pending Last Dose of Anticoagulation: none Op Note: N/A Pacemaker Check: N/A Consults: none DM: No Cardiac Surgical prep: Yes SIGNATURE: Agusto Noriega RN CHECKED BY: gerson DATE of SERVICE: 10/19/2013 TIME of SERVICE: 4:36 PM Skin cancer 06/14/2013 08/27/2017 Perianal abscess 03/23/2012 08/27/2017 Sprain and strain of unspeci fied site of shoulder and upper arm 02/17/2006 06/06/2010 Overview: pain/decr motion since 09/28 Cervicalgia 09/30/2005 06/06/2010 Polymyalgia rheumatica 03/11/200507/28 documented as of this encounter (statuses as of 08/04/2023) [facility] Evaluation note* Diagnosis Onset Date Resolution Status History of mitral valve repl acement with bioprosthetic valve Sep, 2013 chronic Paroxysmal atrial fibrillation chronic 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 [facility] Work Phone: Evaluation note* Diagnosis Acquired hypothyroidism Unspecified hypothyroidism [facility] Diagnosis Acquired hypothyroidism- Primary Unspecified hypothyroidism H/O mitral valve replacement Heart valve replaced by other means Chronic constipation Unspecified constipation documented in this encounter [facility] noteNo assessment information availableWSouthwest [facility] Work Phone: Evaluation note* Diagnosis Acquired hypothyroidism- Primary Unspecified hypothyroidism Need for influenza vaccination Need for prophylactic vaccination and inoculation against influenza Chronic constipation Unspecified constipation [facility]* Diagnosis Acquired hypothyroidism Unspecified hypothyroidism documented [facility]* Diagnosis Acquired hypothyroidism- Primary Unspecified hypothyroidism Chronic constipation Unspecified constipation H/O mitral valve replacement Heart valve replaced by other means Pulmonary hypertension (HCC) Other chronic pulmonary heart diseases [facility]* Diagnosis Pulmonary hypertension (HCC)- Primary Other chronic pulmonary heart diseases Chronic constipation Unspecified constipation Rheumatic heart disease Rheumatic heart disease, unspecified H/O mitral valve replacement Heart valve replaced by other means Acquired hypothyroidism Unspecified hypothyroidism Need for influenza vaccination Need for prophylactic vaccination and inoculation against influenza documented [facility]* Diagnosis Acquired hypothyroidism Unspecified hypothyroidism documented [facility]* Diagnosis Acquired hypothyroidism- Primary Unspecified hypothyroidism Pulmonary hypertension (HCC) Other chronic pulmonary heart diseases H/O mitral valve replacement Heart valve replaced by other means Rheumatic heart disease Rheumatic heart disease, unspecified Chronic constipation Unspecified constipation Drug-induced osteoporosis Other osteoporosis [facility]* Diagnosis Hospital discharge follow-up- Primary Other follow-up examination Acute exacerbation of chronic heart failure (HCC) H/O mitral valve replacement Heart valve replaced by other means [facility]* Diagnosis History of mitral valve replacement with bioprosthetic valve- Primary Heart valve replaced by other means [facility]* Diagnosis History of mitral valve replacement with bioprosthetic valve- Primary Heart valve replaced by other means Pre-operative clearance Preoperative examination, unspecified Prosthetic mitral valve failure requiring replacement Valvular heart disease Endocarditis, valve unspecified, unspecified cause documented [facility] this [facility]* Diagnosis Hospital discharge follow-up- Primary Other follow-up examination Pacemaker Cardiac pacemaker in situ H/O mitral valve replacement Heart valve replaced by other means Pacemaker reprogramming/check Fitting and adjustment of cardiac pacemaker [facility]* Diagnosis Essential hypertension- Primary Unspecified essential hypertension Mixed hyperlipidemia S/P transcatheter mitral valve replacement (TMVR) Pacemaker Cardiac pacemaker in situ Complete heart block (HCC) Atrioventricular block, complete documented [facility]* Diagnosis Pacemaker reprogramming/check Fitting and adjustment of cardiac pacemaker [facility] Diagnosis Acquired hypothyroidism- Primary Unspecified hypothyroidism Drug-induced osteoporosis Other osteoporosis H/O mitral valve replacement Heart valve replaced by other means Pacemaker Cardiac pacemaker in situ Encounter for immunization Need for other specified prophylactic vaccination against single bacterial disease [facility] Diagnosis Cellulitis of skin- Primary Cellulitis and abscess of unspecified site Hypertensive heart disease with heart failure (HCC) Unspecified hypertensive heart disease with heart failure Complete heart block (HCC) Atrioventricular block, complete documented [facility]* Diagnosis Contact dermatitis, unspecified contact dermatitis type, unspecified trigger- Primary Follicular eczema Other specified disease of hair and hair follicles Cellulitis of skin Cellulitis and abscess of unspecified site [facility] Diagnosis S/P MVR (mitral valve replacement)- Primary Heart valve replaced by other means CHB (complete heart block) (HCC) Atrioventricular block, complete [facility]* Diagnosis Acquired hypothyroidism Unspecified hypothyroidism [facility]* Diagnosis Acquired hypothyroidism- Primary Unspecified hypothyroidism Drug-induced osteoporosis Other osteoporosis Hypertensive heart disease with heart failure (HCC) Unspecified hypertensive heart disease with heart failure Complete heart block (HCC) Atrioventricular block, complete H/O mitral valve replacement Heart valve replaced by other means Pacemaker Cardiac pacemaker in situ Screening for depression Encounter for screening examination for other mental health and behavioral disorders Screening for colon cancer Special screening for malignant neoplasms, colon documented [facility]* Diagnosis Family history of colon cancer in father- Primary Screening for colon cancer Special screening for malignant neoplasms, colon History of colonic polyps Personal history of colonic polyps documented [facility]* Diagnosis Encounter for screening for malignant neoplasm of colon- Primary Special screening for malignant neoplasms, colon Screening for colon cancer Special screening for malignant neoplasms, colon Family history of colon cancer in father History of colonic polyps Personal history of colonic polyps documented [facility]* Diagnosis Multiple adenomatous polyps- Primary Benign neoplasm of unspecified site documented [facility]* Diagnosis Onset Date Resolution Status Admit Date Complete heart block by electrocardiogram acute December 09 8:50am Presence of cardiac pacemaker acute December 09, 2024 8:50am S/P transcatheter mitral carlos ve replacement (TMVR) acute December 09 8:50am Paroxysmal atrial fibrillation chron ic December 09, 2024 8:50am [facility] Work Phone: Reason for referral (narrative)* Outpatient Procedure (Routine) - Closed Specialty Diagnoses / Procedures Referred By Felipe lopez Referred To Contact [facility] Diagnoses Pacemaker reprogramming/check Procedures CARDIAC IMPLANTABLE DEVICE CHECK Card Ep Device Clinic Main [address] [place] [address] [address] Referral ID Status Reason Start Date Expiration Date V isits Requested Visits Authorized [id number] Closed Auto-Generate d Referral 01/22/2024 01/21/2025 [facility] Transition of Care (Routine) - Authorized Specialty Diagnoses / Procedures Referred By Felipe lopez Referred To Contact [facility] Procedures CARDIOVASCULAR MEDICINE OP FOLLOW UP APPT ORDER Winifred Vallejo MD [address] [place] [address] Phone: tel: fax: [facility] [address] [place] [id number] Referral ID Status Reason Start Date Expiration Date Visits Requested Visits Authorized [id number] Authorized PCP Requested Referral 07/21/2024 07/21/2025 1 1 [facility] for referral (narrative)No reason for referral information availableWSouthwest General Health Center Work Phone: Reason for visit Narrative* Outpatient Procedure (Routine) - Closed Specialty Diagnoses / Procedures Referred By Contac t Referred To Contact [facility] Diagnoses Pacemaker reprogramming/check Procedures CARDIAC IMPLANTABLE DEVICE CHECK Card Ep Device Clinic Main [address] [place] [address] [place] [id number] Referral ID Status Reason Start Date Expiration Date V isits Requested Visits Authorized [id number] Closed Auto-Generate d Referral 01/22/2024 01/21/2025 1 1 [facility] for visit Narrative* Outpatient Procedure (Routine) - Closed Specialty Diagnoses / Procedures Referred By Contvinayak t Referred To Contact [facility] Diagnoses Screening for colon cancer Family history of colon cancer in father History of colonic polyps Procedures COLONOSCOPY SCREENING COLONOSCOPY FLX DX W/COLLJ SPEC WHEN Pennie Nguyen APRN.LATONYA [address] [facility] [place] [address] Phone: tel: fax: Fritz Pope MD [address] [place] [address] Phone: tel: fax: Referral ID Status Reason Start Date Expiration Date V isits Requested Visits Authorized [id number] Closed Auto-Generate d Referral 11/01/2024 01/31/2025 1 1 [facility] Advance Directives Date Activated Date Inactivated Comments 01/08/2024 7:25 PM 01/23/2024 10:25 PM Question Answer Comments Full Code Order Discussed With: Patient Documents on File Type Date Recorded Patient Malware Analyst Expl anation Advance Directive(s) 11/21/2020 8:51 AM Advance Directive(s) 11/03/2020 2:53 PM Advance Directive(s) 03/10/2017 11:58 AM Advance Directive(s) 02/12/2017 2:41 PM Advance Directive Response Recorded Date/ Time Advance Directives No August 28 8:51am Living Will No September 14, 2013 9:26am Power of Trimmer And Borer Machine Operator No September 14 9:26am Date Activated Date Inactivated Comments 01/08/2024 7:25 PM Question Answer Comments Full Code Order Discussed With: Patient Date Activated Date Inactivated Comments 01/08/2024 7:25 PM Date Activated Date Inactivated Comments 01/08/2024 7:25 PM 01/23/2024 10:25 PM Advance Directive Response Recorded Date/ Time Advance Directives No January 05, 2024 9:58am Advance Directive Response Recorded Date/ Time Living Will No January 04 9:58am Do you have a Healthcare Power of Trimmer And Borer Machine Operator? No January 05, 2024 9:58am Advance Directives No January 05, 2024 9:58am Family History Relationship Condition Age at Onset Recorded Date/T brant father Malignant neoplasm of colon Unknown sister Family history of mitral valve repair Unk nown Chief Complaint and Reason for Visit Chief Complaint VALVE REPLACEMENT EV AL Chief Complaint CHEST PAIN Chief Complaint CHEST PAIN 9 M FU EORDER Reason for Visit History of mitral va lve replacement with bioprosthetic valve Paroxysmal atrial fibrillation Rheumatic aortic stenosis Rheumatic tricuspid insufficiency Chief Complaint Admit Date Pacer Check Remote August 10, 2024 12: 38pm Chief Complaint Admit Date Pacer Check Remote August 10, 2024 12: 38pm Pacer Check Remote November 09, 2024 10:2 9am Chief Complaint Admit Date Pacer Check Remote November 09, 2024 10:2 9am 6 M FU December 09, 2024 8:50 am Reason for Visit Admit Date Complete heart block by electrocardiogra m December 09, 2024 8:50am Presence of cardiac pacemaker December 09, 2024 8:50am S/P transcatheter mitral valve replaceme nt (TMVR) December 09, 2024 8:50am Paroxysmal atrial fibrillation November 8:50am Chief Complaint Admit Date Pacer Check Remote November 09, 2024 10:2 9am 6 M FU December 09, 2024 8:50 am Pacer Check Remote February 07, 2025 11:57pm Chief Complaint Admit Date 6 M FU December 09, 2024 8:50 am Pacer Check Remote February 07, 2025 11:57pm Annual in-clinic PPM f/u March 08 8:51am Pacer Check Remote March 08, 2025 9 :00am Reason for Visit Admit Date Complete heart block by electrocardiogra m December 09, 2024 8:50am Presence of cardiac pacemaker December 09, 2024 8:50am S/P transcatheter mitral valve replaceme nt (TMVR) December 09, 2024 8:50am Paroxysmal atrial fibrillation November 8:50am Complete heart block by electrocardiogra m March 08, 2025 8:51am Diastolic heart failure, NYHA class 3 Oc tober 2024 8:51am Presence of cardiac pacemaker March 082024 8:51am Reason for Referral Specialty Diagnoses / Procedures Referred By Contac t Referred To Contact Endocrinology Diagnoses Night sweats Procedures CONSULT TO ENDOCRINOLOGY OFFICE/OUTPATIENT [facility] 60-74 MINUTES Jesus Taylor MD [address] [place] [address] Referral ID Status Reason Start Date Expiration Date Visits Requested Visits Authorized [id number] Pending Review PCP Requested Referral 07/01/2022 07/01/2023 1 1 Specialty Diagnoses / Procedures Referred By Contac t Referred To Contact [facility] Procedures CARDIOVASCULAR MEDICINE OP FOLLOW UP APPT ORDER Lalita Perkins APRN.SHIPYARD PAINTER [address] [place] [address] [facility] [place] [address] [place] [address] Referral ID Status Reason Start Date Expiration Date Visits Requested Visits Authorized [id number] Ref Not Required PCP Requested Referral 05/26/2024 02/23/2025 1 1 Specialty Diagnoses / Procedures Referred By Contac t [facility] Diagnoses Essential hypertension Mixed hyperlipidemia S/P transcatheter mitral valve replacement (TMVR) Procedures ECHO ECHO TTHRC R-T 2D W/WOM-MODE COMPL SPEC&COLR D PerkinsLalita, GAUGE AND INSTRUMENT INSPECTOR.SHIPYARD PAINTER [address] [place] [address] [facility] [address] [place] [address] Referral ID Status Reason Start Date Expiration Date Visits Requested Visits Authorized [id number] New Request Auto-Generat ed Referral 02/24/2024 02/23/2025 1 1 Specialty Diagnoses / Procedures Referred By Contac t Referred To Contact [facility] Diagnoses Essential hypertension Mixed hyperlipidemia S/P transcatheter mitral valve replacement (TMVR) Procedures ECG COMPLETE ECG ROUTINE ECG W/LEAST 12 LDS W/I&R Lalita Perkins, GAUGE AND INSTRUMENT INSPECTOR.SHIPYARD PAINTER [address] [place] [address] [facility] [address] [place] [address] Referral ID Status Reason Start Date Expiration Date Visits Requested Visits Authorized [id number] New Request Auto-Generat ed Referral 02/24/2024 02/23/2025 1 1 Summary Purpose Additional Source Comments Source Comments (unrecognize d section and content) In the event this informatio n is protected by the Federal Confidentiality of Alcohol and Drug Abuse Patient Records regulations: The Federal rules restrict any use of the information to criminally investigate or prosecute any alcohol or drug abuse patient.[facility] the event this information is protected by the Federal Confidentiality of Alcohol and Drug Abuse Patient Records regulations: The Federal rules restrict any use of the information to criminally investigate or prosecute any alcohol or drug abuse patient.[facility] HospitalIn the event this information is protected by the Federal Confidentiality of Alcohol and Drug Abuse Patient Records regulations: The Federal rules restrict any use of the information to criminally investigate or prosecute any alcohol or drug abuse patient.[facility] HospitalIn the event this information is protected by the Federal Confidentiality of Alcohol and Drug Abuse Patient Records regulations: The Federal rules restrict any use of the information to criminally investigate or prosecute any alcohol or drug abuse patient.[facility] HospitalIn the event this information is protected by the Federal Confidentiality of Alcohol and Drug Abuse Patient Records regulations: The Federal rules restrict any use of the information to criminally investigate or prosecute any alcohol or drug abuse patient.[facility] HospitalIn the event this information is protected by the Federal Confidentiality of Alcohol and Drug Abuse Patient Records regulations: The Federal rules restrict any use of the information to criminally investigate or prosecute any alcohol or drug abuse patient.[facility] HospitalIn the event this information is protected by the Federal Confidentiality of Alcohol and Drug Abuse Patient Records regulations: The Federal rules restrict any use of the information to criminally investigate or prosecute any alcohol or drug abuse patient.[facility] HospitalIn the event this information is protected by the Federal Confidentiality of Alcohol and Drug Abuse Patient Records regulations: The Federal rules restrict any use of the information to criminally investigate or prosecute any alcohol or drug abuse patient.[facility] HospitalIn the event this information is protected by the Federal Confidentiality of Alcohol and Drug Abuse Patient Records regulations: The Federal rules restrict any use of the information to criminally investigate or prosecute any alcohol or drug abuse patient.[facility] HospitalIn the event this information is protected by the Federal Confidentiality of Alcohol and Drug Abuse Patient Records regulations: The Federal rules restrict any use of the information to criminally investigate or prosecute any alcohol or drug abuse patient.[facility] HospitalIn the event this information is protected by the Federal Confidentiality of Alcohol and Drug Abuse Patient Records regulations: The Federal rules restrict any use of the information to criminally investigate or prosecute any alcohol or drug abuse patient.[facility] HospitalIn the event this information is protected by the Federal Confidentiality of Alcohol and Drug Abuse Patient Records regulations: The Federal rules restrict any use of the information to criminally investigate or prosecute any alcohol or drug abuse patient.[facility] HospitalIn the event this information is protected by the Federal Confidentiality of Alcohol and Drug Abuse Patient Records regulations: The Federal rules restrict any use of the information to criminally investigate or prosecute any alcohol or drug abuse patient.[facility] HospitalIn the event this information is protected by the Federal Confidentiality of Alcohol and Drug Abuse Patient Records regulations: The Federal rules restrict any use of the information to criminally investigate or prosecute any alcohol or drug abuse patient.[facility] HospitalIn the event this information is protected by the Federal Confidentiality of Alcohol and Drug Abuse Patient Records regulations: The Federal rules restrict any use of the information to criminally investigate or prosecute any alcohol or drug abuse patient.[facility] HospitalIn the event this information is protected by the Federal Confidentiality of Alcohol and Drug Abuse Patient Records regulations: The Federal rules restrict any use of the information to criminally investigate or prosecute any alcohol or drug abuse patient.[facility] HospitalIn the event this information is protected by the Federal Confidentiality of Alcohol and Drug Abuse Patient Records regulations: The Federal rules restrict any use of the information to criminally investigate or prosecute any alcohol or drug abuse patient.[facility] HospitalIn the event this information is protected by the Federal Confidentiality of Alcohol and Drug Abuse Patient Records regulations: The Federal rules restrict any use of the information to criminally investigate or prosecute any alcohol or drug abuse patient.[facility] HospitalIn the event this information is protected by the Federal Confidentiality of Alcohol and Drug Abuse Patient Records regulations: The Federal rules restrict any use of the information to criminally investigate or prosecute any alcohol or drug abuse patient.[facility] HospitalIn the event this information is protected by the Federal Confidentiality of Alcohol and Drug Abuse Patient Records regulations: The Federal rules restrict any use of the information to criminally investigate or prosecute any alcohol or drug abuse patient.[facility] HospitalIn the event this information is protected by the Federal Confidentiality of Alcohol and Drug Abuse Patient Records regulations: The Federal rules restrict any use of the information to criminally investigate or prosecute any alcohol or drug abuse patient.[facility] HospitalIn the event this information is protected by the Federal Confidentiality of Alcohol and Drug Abuse Patient Records regulations: The Federal rules restrict any use of the information to criminally investigate or prosecute any alcohol or drug abuse patient.[facility] HospitalIn the event this information is protected by the Federal Confidentiality of Alcohol and Drug Abuse Patient Records regulations: The Federal rules restrict any use of the information to criminally investigate or prosecute any alcohol or drug abuse patient.[facility] HospitalIn the event this information is protected by the Federal Confidentiality of Alcohol and Drug Abuse Patient Records regulations: The Federal rules restrict any use of the information to criminally investigate or prosecute any alcohol or drug abuse patient.[facility] HospitalIn the event this information is protected by the Federal Confidentiality of Alcohol and Drug Abuse Patient Records regulations: The Federal rules restrict any use of the information to criminally investigate or prosecute any alcohol or drug abuse patient.[facility] HospitalIn the event this information is protected by the Federal Confidentiality of Alcohol and Drug Abuse Patient Records regulations: The Federal rules restrict any use of the information to criminally investigate or prosecute any alcohol or drug abuse patient.[facility] HospitalIn the event this information is protected by the Federal Confidentiality of Alcohol and Drug Abuse Patient Records regulations: The Federal rules restrict any use of the information to criminally investigate or prosecute any alcohol or drug abuse patient.[facility] HospitalIn the event this information is protected by the Federal Confidentiality of Alcohol and Drug Abuse Patient Records regulations: The Federal rules restrict any use of the information to criminally investigate or prosecute any alcohol or drug abuse patient.[facility] HospitalIn the event this information is protected by the Federal Confidentiality of Alcohol and Drug Abuse Patient Records regulations: The Federal rules restrict any use of the information to criminally investigate or prosecute any alcohol or drug abuse patient.[facility] HospitalIn the event this information is protected by the Federal Confidentiality of Alcohol and Drug Abuse Patient Records regulations: The Federal rules restrict any use of the information to criminally investigate or prosecute any alcohol or drug abuse patient.[facility] HospitalIn the event this information is protected by the Federal Confidentiality of Alcohol and Drug Abuse Patient Records regulations: The Federal rules restrict any use of the information to criminally investigate or prosecute any alcohol or drug abuse patient.[facility] HospitalIn the event this information is protected by the Federal Confidentiality of Alcohol and Drug Abuse Patient Records regulations: The Federal rules restrict any use of the information to criminally investigate or prosecute any alcohol or drug abuse patient.[facility] HospitalIn the event this information is protected by the Federal Confidentiality of Alcohol and Drug Abuse Patient Records regulations: The Federal rules restrict any use of the information to criminally investigate or prosecute any alcohol or drug abuse patient.[facility] HospitalIn the event this information is protected by the Federal Confidentiality of Alcohol and Drug Abuse Patient Records regulations: The Federal rules restrict any use of the information to criminally investigate or prosecute any alcohol or drug abuse patient.[facility] HospitalIn the event this information is protected by the Federal Confidentiality of Alcohol and Drug Abuse Patient Records regulations: The Federal rules restrict any use of the information to criminally investigate or prosecute any alcohol or drug abuse patient.[facility] Reason for Visit (unrecogniz ed section and content) Reason Onset Date Comments Refill Request 08/30/2021 Reason Comments 6 Month Exam Reason Onset Date Comments 6 Month Exam Immunizations 04/01/2022 Flu vaccination Reason Comments Referral Request Reason Onset Date Comments Refill Request 08/15/2022 Reason Comments F/U 6 Month Reason Onset Date Comments 6 Month Exam Immunizations 04/29/2023 Flu vaccination Reason Onset Date Comments Refill Request 08/04/2023 Reason Comments Follow Up Reason Comments Transition Of Care Specialty Diagnoses / Procedures Referred By Contac t Referred To Contact HOSP INPATIENT Diagnoses Acute decompensated heart failure (HCC) Valve Replacement Failure, Pulmonary hypertension, shortness breath Procedures EVAL AND TREAT - PT [facility] [id number] [place] [address] Referral ID Status Reason Start Date Expiration Date Visits Re quested Visits Authorized [id number] 1 1 Reason Onset Date Comments Transition Of Care 01/27/2024 T[facility] Pharmacy- Hospital discharge 01/23/24 Reason Comments Follow Up Phone Call Relate care dischar ge follow up-1st attempt-no contact-left vm Reason Comments Hospital F/U Reason Comments Courtesy call Device survey Reason Comments Hospital F/U Reason Comments Rash Reason Comments Acute Visit Itching all over bod y Reason Comments Follow Up Specialty Diagnoses / Procedures Referred By Contac t Referred To Contact [facility] [place] Procedures CARDIOVASCULAR MEDICINE OP FOLLOW UP APPT ORDER Lalita Perkins, ARON.SHIPYARD PAINTER [address] [place] [address] Phone: tel: fax: [facility] [address] [place] [address] Referral ID Status Reason Start Date Expiration Date V isits Requested Visits Authorized [id number] Closed PCP Requested Referral 05/26/2024 02/23/2025 1 1 Reason Onset Date Comments Refill Request 08/04/2024 Reason Comments Consult Reason Comments F/U 6 Month Reason Comments Consult Here for colonoscopy D/T previous polyps Specialty Diagnoses / Procedures Referred By Contac t Referred To Contact General Surgery Diagnoses Screening for colon cancer Procedures CONSULT TO GENERAL SURGERY OFFICE/OUTPATIENT [facility] 60 MINUTES Jesus Taylor MD [address] [place] [address] Phone: tel: fax: Referral ID Status Reason Start Date Expiration Date V isits Requested Visits Authorized [id number] Closed PCP Requested Referral 10/05/2024 10/05/2025 1 1 Reason Comments Follow Up FU to colonoscopy Care Teams (unrecognized sec tion and content) Mixer Helper Relationship Specialty Start Date End Date Jesus Taylor MD [address] [place] [address] PCP - General 01/26/09 Mixer Helper Relationship Specialty Start Date End Date Jesus Taylor MD [address] [place] [address] PCP - General 01/26/09 Mixer Helper Relationship Specialty Start Date End Date Jesus Taylor MD [address] [place] [address] PCP - General 01/26/09 Mixer Helper Relationship Specialty Start Date End Date Jesus Taylor MD [address] [place] [address] PCP - General 01/26/09 Mixer Helper Relationship Specialty Start Date End Date Jesus Taylor MD [address] [place] [address] PCP - General 01/26/09 Mixer Helper Relationship Specialty Start Date End Date Jesus Taylor MD [address] [place] [address] PCP - General 01/26/09 Mixer Helper Relationship Specialty Start Date End Date Jesus Taylor MD [address] [place] [address] PCP - General 01/26/09 Mixer Helper Relationship Specialty Start Date End Date Jesus Taylor MD [address] [place] [address] PCP - General 01/26/09 Team Status: Active Member Role Status Dates Dr. Jesus Taylor MD Family Provider Active Dr. Jesus Taylor MD Primary Care Provider Active Team Status: Active Member Role Status Dates Dr. Jesus Taylor MD Primary Care Provider Active Dr. Janine Martin MD Attending Provider Active Team Status: Inactive Member Role Status Dates Dr. Jesus Taylor MD Primary Care Provider Active Shantel Shepard PA, PA Attending Provider Active Dr. Hermilo Casey MD Other Provider Active Team Status: Inactive Member Role Status Dates Dr. Jesus Taylor MD Primary Care Provider, Referr ing Provider Active Shantel Shepard PA, PA Attending Provider Active Team Status: Inactive Member Role Status Dates Dr. Jesus Taylor MD Primary Care Provider Active Shantel FENTON, PA Attending Provider, Referr ing Provider Active Mixer Helper Relationship Specialty Start Date End Date Jesus Taylor MD [address] [place] [address] PCP - General 01/26/09 Mixer Helper Relationship Specialty Start Date End Date Jesus Taylor MD [address] [place] [address] PCP - General 01/26/09 Mixer Helper Relationship Specialty Start Date End Date Jesus Taylor MD [address] [place] [address] PCP - General 01/26/09 Mixer Helper Relationship Specialty Start Date End Date Jesus Taylor MD [address] [place] [address] PCP - General 01/26/09 Mixer Helper Relationship Specialty Start Date End Date Jesus Taylor MD [address] [place] [address] PCP - General 01/26/09 Mixer Helper Relationship Specialty Start Date End Date Jesus Taylor MD [address] [place] [address] PCP - General 01/26/09 Geoffrey Graham MD Ict Project Manager 01/23/24 02/05/24 Mixer Helper Relationship Specialty Start Date End Date Jesus Taylor MD [address] [place] [address] PCP - General 01/26/09 Geoffrey Graham MD Ict Project Manager 01/23/24 02/05/24 Mixer Helper Relationship Specialty Start Date End Date Jesus Taylor MD [address] [place] [address] PCP - General 01/26/09 ProviderGeoffrey MD Ict Project Manager 01/23/24 02/05/24 Mixer Helper Relationship Specialty Start Date End Date Jesus Taylor MD [address] [place] [address] PCP - General 01/26/09 Mixer Helper Relationship Specialty Start Date End Date Jesus Taylor MD [address] [place] [address] PCP - General 01/26/09 Mixer Helper Relationship Specialty Start Date End Date Jesus Taylor MD [address] [place] [address] PCP - General 01/26/09 Mixer Helper Relationship Specialty Start Date End Date Jesus Taylor MD [address] [place] [address] PCP - General 01/26/09 Mixer Helper Relationship Specialty Start Date End Date Jesus Taylor MD [address] [place] [address] PCP - General 01/26/09 Mixer Helper Relationship Specialty Start Date End Date Jesus Taylor MD [address] [place] [address] PCP - General 01/26/09 Codie Mann APRN.CNP [address] [place] [address] [facility] 05/02/24 Tyson Kyle APRN.SHIPYARD PAINTER [address] [place] [address] [facility] 05/11/24 Mixer Helper Relationship Specialty Start Date End Date Jesus Taylor MD [address] [place] [address] PCP - General 01/26/09 Codie Mann APRN.SHIPYARD PAINTER [address] [place] [address] [facility] 05/02/24 Tyson Kyle APRN.SHIPYARD PAINTER [address] [place] [address] [facility] 05/11/24 Mixer Helper Relationship Specialty Start Date End Date Jesus Taylor MD [address] [place] [address] PCP - General 01/26/09 Codie Mann APRN.SHIPYARD PAINTER [address] [place] [address] [facility] 05/02/24 Tyson Kyle APRN.SHIPYARD PAINTER [address] [place] [address] [facility] 05/11/24 Mixer Helper Relationship Specialty Start Date End Date Jesus Taylor MD [address] [place] [address] PCP - General 01/26/09 Codie Mann APRN.SHIPYARD PAINTER [address] [place] [address] Ict Project Manager Family Medicine 05/02/24 Tyson Kyle APRN.SHIPYARD PAINTER [address] [place] [address] Ict Project Manager Family Medicine 05/11/24 Mixer Helper Relationship Specialty Start Date End Date Jesus Taylor MD [address] [place] [address] PCP - General 01/26/09 Codie Mann APRN.SHIPYARD PAINTER [address] [place] [address] Ict Project Manager Family Medicine 05/02/24 Tyson Kyle APRN.SHIPYARD PAINTER [address] [place] [address] Ict Project Manager Family [facility] 05/11/24 Mixer Helper Relationship Specialty Start Date End Date Jesus Taylor MD [address] [place] [address] PCP - General 01/26/09 Codie Mann APRN.SHIPYARD PAINTER [address] [place] [address] Ict Project Manager Family Medicine 05/02/24 Tyson Kyle APRN.SHIPYARD PAINTER [address] [place] [address] Ict Project Manager Family Medicine 05/11/24 Mixer Helper Relationship Specialty Start Date End Date Jesus Taylor MD [address] [place] [address] PCP - General 01/26/09 Codie Mann, GAUGE AND INSTRUMENT INSPECTOR.SHIPYARD PAINTER [address] [place] [address] [facility] Tyson Kyle, GAUGE AND INSTRUMENT INSPECTOR.SHIPYARD PAINTER [address] [place] [address] [facility] 05/11/24 Mixer Helper Relationship Specialty Start Date End Date Jesus Taylor MD [address] [place] [address] PCP - General 01/26/09 Tyson Kyle, GAUGE AND INSTRUMENT INSPECTOR.SHIPYARD PAINTER [address] [place] [address] [facility] 05/11/24 Mixer Helper Relationship Specialty Start Date End Date Jesus Taylor MD [address] [place] [address] PCP - General 01/26/09 Tyson Kyle, GAUGE AND INSTRUMENT INSPECTOR.SHIPYARD PAINTER [address] [place] [address] [facility] 05/11/24 Team Status: Inactive Member Role Status Dates Dr. Jesus Taylor MD Primary Care Provider Active Start: August 10, 2024 End: August 10, 2024 Dr. Schuyler Angel MD Attending Provider Active S tart: August 10, 2024 End: August 10, 2024 Team Status: Inactive Member Role Status Dates Dr. Jesus Taylor MD Primary Care Provider Active Start: November 12, 2024 End: November 12, 2024 Irene FENTON PA-C Attending Provider Active S tart: November 12, 2024 End: November 12, 2024 Irene Autumn PA, PA-C Referring Provider Active S tart: November 12, 2024 End: November 12, 2024 Team Status: Active Member Role/Relationship Status Dates Dr. eJsus Taylor MD Family Provider Active Dr. Jesus Taylor MD Primary Care Provider Active Team Status: Inactive Member Role/Relationship Status Dates Dr. Jesus Taylor MD Primary Care Provider Active Start: August 10, 2024 End: August 10, 2024 Dr. Schuyler Angel MD Attending Provider Active S tart: August 10, 2024 End: August 10, 2024 Team Status: Inactive Member Role/Relationship Status Dates Dr. Jesus Taylor MD Primary Care Provider Active Start: November 09, 2024 End: November 09, 2024 Dr. Schuyler Angel MD Attending Provider Active S tart: November 09, 2024 End: November 09, 2024 Team Status: Inactive Member Role/Relationship Status Dates Dr. Jesus Taylor MD Primary Care Provider Active Start: November 12, 2024 End: November 12, 2024 Irene PA, PA-C Attending Provider Active S tart: November 12, 2024 End: November 12, 2024 Irene Autumn PA, PA-C Referring Provider Active S tart: November 12, 2024 End: November 12, 2024 Team Status: Inactive Member Role/Relationship Status Dates Dr. Jesus Taylor MD Primary Care Provider Active Start: November 09, 2024 End: November 09, 2024 Dr. Schuyler Angel MD Attending Provider Active S tart: November 09, 2024 End: November 09, 2024 Team Status: Inactive Member Role/Relationship Status Dates Dr. Jesus Taylor MD Primary Care Provider Active Start: November 12, 2024 End: November 12, 2024 Irene Autumn PA, PA-C Attending Provider Active S tart: November 12, 2024 End: November 12, 2024 Irene Autumn PA, PA-C Referring Provider Active S tart: November 12, 2024 End: November 12, 2024 Team Status: Inactive Member Role/Relationship Status Dates Dr. Jesus Taylor MD Primary Care Provider Active Start: December 09, 2024 End: December 09, 2024 Dr. Jesus Taylor MD Referring Provider Active Start: December 09, 2024 End: December 09, 2024 Shantel FENTON PA Attending Provider Active Start: December 09, 2024 End: December 09, 2024 Mixer Helper Relationship Specialty Start Date End Date Jesus Taylor MD [address] [place] [address] PCP - General 01/26/09 Tyson Kyle APRN.SHIPYARD PAINTER [address] [place], [place] [address] Ict Project Manager Family Medicine 05/11/24 Team Status: Active Member Role/Relationship Status Dates Dr. Jesus Taylor MD Primary care physician Active Team Status: Inactive Member Role/Relationship Status Dates Dr. Jesus Taylor MD Primary care physician Active Start: November 09, 2024 End: November 09, 2024 Dr. Schuyler Angel MD Attending physician Active Start: November 09, 2024 End: November 09, 2024 Team Status: Inactive Member Role/Relationship Status Dates Dr. Jesus Taylor MD Primary care physician Active Start: November 12, 2024 End: November 12, 2024 Irene FENTON PA-C Attending physician Active Start: November 12, 2024 End: November 12, 2024 Irene FENTON PA-C Referring Provider Active S tart: November 12, 2024 End: November 12, 2024 Team Status: Inactive Member Role/Relationship Status Dates Dr. Jesus Taylor MD Primary care physician Active Start: December 09, 2024 End: December 09, 2024 Dr. Jesus Taylor MD Referring Provider Active Start: December 09, 2024 End: December 09, 2024 Shantel FENTON PA Attending physician Active Start: December 09, 2024 End: December 09, 2024 Team Status: Inactive Member Role/Relationship Status Dates Dr. Jesus Taylor MD Primary care physician Active Start: February 07, 2025 End: February 07, 2025 Dr. Schuyler Angel MD Attending physician Active Start: February 07, 2025 End: February 07, 2025 Team Status: Inactive Member Role/Relationship Status Dates Dr. Jesus Taylor MD Primary care physician Active Start: December 09, 2024 End: December 09, 2024 Dr. Jesus Taylor MD Referring Provider Active Start: December 09, 2024 End: December 09, 2024 Shantel Shepard PA, PA Attending physician Active Start: December 09, 2024 End: December 09, 2024 Team Status: Inactive Member Role/Relationship Status Dates Dr. Jesus Taylor MD Primary care physician Active Start: February 07, 2025 End: February 07, 2025 Dr. Schuyler Angel MD Attending physician Active Start: February 07, 2025 End: February 07, 2025 Team Status: Inactive Member Role/Relationship Status Dates Dr. Jesus Taylor MD Primary care physician Active Start: March 08, 2025 End: March 08, 2025 Dr. Jesus Taylor MD Referring Provider Active Start: March 08, 2025 End: March 08, 2025 Dr. Schuyler Angel MD Attending physician Active Start: March 08, 2025 End: March 08, 2025 Team Status: Inactive Member Role/Relationship Status Dates Dr. Jesus Taylor MD Primary care physician Active Start: March 08, 2025 End: March 08, 2025 Dr. Schuyler Angel MD Attending physician Active Start: March 08, 2025 End: March 08, 2025 Goals (unrecognized section and content) Goals may be documented in a n alternate sectionGoals may be documented in an alternate sectionGoals may be documented in an alternate sectionGoals may be documented in an alternate sectionGoals may be documented in an alternate sectionGoals may be documented in an alternate sectionGoals may be documented in an alternate sectionGoals may be documented in an alternate sectionGoals may be documented in an alternate sectionGoals may be documented in an alternate section (unrecognized sect ion and content) No Status Records FoundNo Status Records Found INFORMATION SOURCE (unrecogn ized section and content) DATE CREATED AUTHOR 03/19/2025 [facility] DATE CREATED AUTHOR 'S NAREN ATSG 03/23/2025 [facility] FOR RECORDS PERTAINING TO PATIENTS WHO ARE OR HAVE BEEN ENROLLED IN A CHEMICAL DEPENDENCY/SUBSTANCEABUSE PROGRAM, SOME INFORMATION MAY BE OMITTED. This clinical summary was aggregated from multiple sources. Caution should be exercised in using it in the provision of clinical care. This summary normalizes information from multiple sources, and as a consequence, information in this document may materially change the coding, format and clinical context of patient data. In addition, data may be omitted in some cases. CLINICAL DECISIONS SHOULD BE BASED ON THE PRIMARY CLINICAL RECORDS. [facility] [facility]. provides no warranty or guarantee of the accuracy or completeness of information in this document.
[2025-03-25 04:39] LABS: Hematocrit 42.3 % (40-54); Hemoglobin 14.1 g/dL (13.0-16.5); Immature Granulocytes Count 0.020 X10^3/uL (0.0-0.0); Mean Corp Hgb Conc 33.3 g/dL (32-36); Mean Corpuscular Volume 94.2 fL (80-94); Mean Platelet Vol. 10.0 fl (6.2-12.0); NRBC Flagged by Analyzer 0 % (0-5); Platelet Count 122 K/mm3 (150-450); RBC Distribution Width CV 13.3 % (11.6-14.6); RBC Distribution Width SD 46.2 fl (35.1-43.9); Red Blood Count 4.49 M/mm3 (4.6-6.2); White Blood Count 6.3 K/mm3 (4.4-11.0)
--- NOTE | 2025-03-25 04:45 | ED.RN ---
0434 [facility] notified of stroke alert.
--- NOTE | 2025-03-25 04:45 | ED.RN ---
[address] and [facility] notified of pt coming back to his room.
[2025-03-25 04:49] LABS: Prothrombin Time (Protime)PT. 14.2 SECONDS (11.7-14.9)
[2025-03-25 04:50] LABS: Partial Thromboplast Time 29.9 Seconds (24.1-36.2)
[2025-03-25 04:57] LABS: Troponin T High Sensitivity 19 ng/L (<=22)
[2025-03-25 04:58] LABS: Anion Gap 10 (5-15); BUN 26 mg/dL (4-19); BUN/Creat Ratio 22.9 RATIO (10-20); Calcium,Total 9.1 mg/dL (7.6-11.0); Carbon Dioxide 25.1 mmol/L (21.0-32.0); Chloride 104 mmol/L (98-108); Estimated Creatinine Clearance 40.84 ml/min (50-250); Glucose 98 mg/dL (70-99); Potassium 4.1 mmol/L (3.3-5.1)
--- NOTE | 2025-03-25 05:07 | ED.RN ---
0505 dR Estrada Scott FROM [facility] assessing pt via telehealth.
--- NOTE | 2025-03-25 05:29 | PCM.HP.STD ---
HPI - General General Date of Admission: 03/25/25 Date of Service: 03/25/25 Chief Complaint: L facial paresthesias. 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 Workup in the ED included T98.2, heart rate 98, BP 180/67, respiratory rate 14, 98% on room air, CBC with WBC 6.3, Hgb 14.1, MCV 94.2, platelet 122 without marked shift, coags unremarkable, BMP with BUN/creatinine 26/1.15, GFR 62, troponin 19, CT head with no acute intracranial findings, CTA head and neck pending upon requested evaluation of patient, EKG with atrial sensed ventricular paced rhythm with no acute evidence of ischemia. Stroke alert initiated in the ED and patient evaluated by neurology with recommendation for avoidance of tenecteplase given low NIH stroke scale assessments but stroke workup including MRI as device was noted to be compatible. [facility] Medical History Complete heart block by electrocardiogram Presence of cardiac pacemaker Hypothyroid Hypogonadism Rheumatic tricuspid insufficiency Paroxysmal atrial fibrillation Rheumatic aortic stenosis Pulmonary HTN Tricuspid regurgitation Mitral valve stenosis, rheumatic Home Medications ?Medication ?Instructions ?Recorded ?Last Taken ?Type levothyroxine 75 mcg tablet 75 mcg PO DAILY thyroid 08/27/13 08/26/13 History aspirin 325 mg tablet 325 mg PO DAILY antiplatelet 06/04/19 Unknown History Allergy/AdvReac Type Severity Reaction Status Date / Time alendronate sodium (From Allergy Unknown Verified 03/25/25 04:14 Fosamax) Family History Father Colon cancer Sister FH: mitral valve repair Mother No problems noted. Surgical History S/P transcatheter mitral valve replacement (TMVR) History of mitral valve replacement with bioprosthetic valve (~10/20/13) History of left heart catheterization (LHC) History of mitral valve replacement (10/20/13) Social History household members: none Smoking Status: Never smoker alcohol intake: never substance use type: does not use caffeine: No what type of physical activity do you participate in: none seatbelt use: always do you feel safe at home: Yes ROS ROS Narrative Admission Review of Systems: CONSTITUTIONAL: No weight loss, fever, chills, + weakness or fatigue. HEENT: + Left-sided facial paresthesias. Eyes: No visual loss, blurred vision, double vision or yellow sclerae. Ears, Nose, Throat: No hearing loss, sneezing, congestion, runny nose or sore throat. SKIN: No rash or itching, lesions, wounds. CARDIOVASCULAR: No chest pain, chest pressure or chest discomfort, palpitations, edema, orthopnea, syncopal events. RESPIRATORY: No shortness of breath, cough or sputum, wheezing, hemoptysis. GASTROINTESTINAL: No anorexia, nausea, vomiting or diarrhea, abdominal pain, melena, BRBPR. GENITOURINARY: No dysuria, frequency, urgency or retention. NEUROLOGICAL: + Left-sided facial paresthesias. No headache, dizziness, syncope, paralysis, ataxia, focal weakness, change in bowel or bladder control, seizure. MUSCULOSKELETAL: + muscle, back pain, joint pain or stiffness. HEMATOLOGIC: + Chronic anemia, no easy bleeding/bruising history. LYMPHATICS: No enlarged nodes. No history of splenectomy. PSYCHIATRIC: No history of depression or anxiety. ENDOCRINOLOGIC: No reports of sweating, cold or heat intolerance. No polyuria or polydipsia. ALLERGIES: No history of asthma, hives, eczema or rhinitis. Vital Signs Vital Signs Vital Signs: 03/25/25 04:14 03/25/25 04:16 03/25/25 04:18 Temperature 98.2 F Temperature Source Oral Pulse Rate 98 83 Respiratory Rate 14 21 H Blood Pressure 180/67 H 180/67 H Blood Pressure Mean 104 101 Pulse Ox 98 98 Oxygen Delivery Method 03/25/25 04:30 03/25/25 04:30 03/25/25 04:31 Temperature Temperature Source Pulse Rate 77 78 78 Respiratory Rate 18 16 22 H Blood Pressure 180/67 H 180/61 H Blood Pressure Mean 104 100 Pulse Ox 98 98 100 Oxygen Delivery Method Room Air Room Air 03/25/25 04:37 03/25/25 04:44 03/25/25 04:45 Temperature Temperature Source Pulse Rate 79 75 Respiratory Rate 16 12 Blood Pressure 159/86 H 162/75 H Blood Pressure Mean 107 101 Pulse Ox 98 Oxygen Delivery Method Room Air 03/25/25 05:00 03/25/25 05:00 03/25/25 05:15 Temperature Temperature Source Pulse Rate 74 77 72 Respiratory Rate 17 15 15 Blood Pressure 160/76 H 160/76 H 148/70 H Blood Pressure Mean 104 102 93 Pulse Ox 100 100 97 Oxygen Delivery Method Room Air Weight Weight: 148 lb 9.465 oz Body Mass Index (BMI) 24.0 Physical Exam Narrative Physical Examination: General: Awake, alert, oriented x 3 and cooperative, seated upright in the ED bed, fatigued, still mild left sided cheek paresthesias otherwise no neurological focal symptoms. Skin: Normal color, normal turgor, no icterus, no cyanosis except occasional stage ecchymoses, abrasions.. HEENT: AT/NC, EOMI, PERRLA, mildly dry MM, no carotid bruits or JVD noted. Lungs: CTA bilaterally, moderate effort, mild decrease BL bases, no rales, ronchi or wheezing. Heart: Regular rate and rhythm/paced; no gallop, rub audible. Abdomen: Soft, NTTP, ND, normal BS, no appreciated HSM. Extremities: No cyanosis, no clubbing, no significant distal pitting edema, chronic left upper extremity muscle wasting/weakness with history of polymyositis at age 4. 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 Psychiatric: Affect appears normal, no acute evidence of depressive or anxiety feelings. Results Lab / Micro Data 03/25/25 04:23 03/25/25 04:23 Labs: Laboratory Results - last 24 hr 03/25/25 04:23: WBC 6.3, RBC 4.49 L, Hgb 14.1, Hct 42.3, MCV 94.2 H, MCH 31.4, MCHC 33.3, RDW Std Deviation 46.2 H, RDW Coeff of Chhaya 13.3, Plt Count 122 L, MPV 10.0, Immature Gran % (Auto) 0.300, Neut % (Auto) 55.7, Lymph % (Auto) 28.5, Hancock % (Auto) 10.7 H, Eos % (Auto) 4.0, Baso % (Auto) 0.8, Absolute Neuts (auto) 3.5, Absolute Lymphs (auto) 1.78, Nucleated RBC % 0, PT 14.2, INR 1.1, APTT 29.9, Sodium 138, Potassium 4.1, Chloride 104, Carbon Dioxide 25.1, Anion Gap 10, BUN 26 H, Creatinine 1.15, Estim Creat Clear Calc 40.84 L, Est GFR (MDRD) Non-Af 62, BUN/Creatinine Ratio 22.9 H, Glucose 98, Calcium 9.1, Troponin T High Sens 19 03/25/25 04:30: POC Glucose 83 Imaging Radiology Impression Brain CT 03/25/25 04:28 IMPRESSION: No CT evidence for an acute brain abnormality. I discussed the findings with Fritz Ortiz in the emergency department at 4:50 a.m. EST. 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 #1. Left-sided facial paresthesias concerning for TIA/CVA with underlying concurrent chronic ischemic encephalomalacia in the right polo radiata extending to the right basal ganglia, scattered hypodense foci in the periventricular and subcortical white matter suggestive of chronic ischemic white matter disease: Will admit to PCU, will obtain MRI brain as noted per neurology to be MRI compatible, will obtain ECHO, PT/OT/Speech/Nutrition evaluation per protocol. Will allow permissive HTN, given history of PAF and current presentation will maintain on aspirin therapy but if any concerning finding on repeat CT head ors if recommended per neurology may need to initiate anticoagulant therapy, add statin w/ AM FLP, fall precautions. Mag, TSH, FLP, HgbA1c requested. Maintain on fall and aspiration precautions. Will continue neurology consultation initiated per ED. #2. Elevated BP without hypertensive diagnosis: BP elevated in the ED, noted history of pulmonary hypertension but no formal hypertensive diagnosis not on any hypertensive regimen, given presentation as noted #1 will maintain permissive hypertension with as needed agents per stroke protocol. #3. Thrombocytopenia, possibly reactive, unclear etiology: Admission platelets 122, previous baseline noted to be normal, will continue to trend CBC to further elucidate. #4. Chronic Kidney Disease Stage II per GFR trending: Admission BUN/Cr 26/1.15, GFR 62, baseline renal function primarily 1.0-1.1, repeat BMP in AM. #5. Valvular heart disease: Most recent echocardiogram noted 05/27/2024 with normal LV size, moderate concentric LVH, LVEF 55%, LA severely enlarged, stable appearing bioprosthetic MV apparatus, mean transmitral valve gradient 7 mmHg. Repeat echocardiogram requested given presentation as noted #1. #6. PAF: Not on any beta-enzo therapy nor anticoagulant therapy, will continue aspirin at this time however if recommended per neurology will initiate anticoagulant therapy, maintain on telemetry monitoring. #7. History complete heart block: Status post previous pacemaker placement, clarifying if it is MRI compatible. Encouraged continued follow-up outpatient for interrogation as previously arranged. #8. Pulmonary hypertension: Noted in chart history, no comment on most recent echocardiogram, repeat echocardiogram requested, as noted #2, if appropriate will be initiated on hypertensive regimen. #9. Hypothyroidism: Continue home levothyroxine regimen, TSH pending. #10. DVT prophylaxis: Lovenox. #11. CODE status: Patient does not have a healthcare power of employee benefits attorney or living will in place but notes his siblings would be his medical decision makers if necessary. Discussed CODE status at length including difference between FULL code, DNR-CCA and DNR-CC status. Following discussions about the differences in these status, requested Full Code status. Advanced Care Planning Face to Face Time: 16 minutes. Charges/Coding Visit Charges Inpatient E&M: 83597 Init Hosp L2 Procedures Hospitalists Procedures: 99585 Advncd Care Plan 30 Min
--- OUTSIDE RECORDS SUMMARY | 2025-03-25 05:54 | XMS RPT_ITS | CCD ---
Author Organization [facility] Care Team Providers Care Seo Strategist Name Role Phone Caesar Hurt Unavailable Unavailable [...] Provider Provider Geoffrey SCHAFER Unavailable Unavailable Tannhof HOCKEY INSTRUCTOR.LATONYA Codie Unavailable Saroj HOCKEY INSTRUCTOR.HANSARD REPORTER, Tyson Unavailable Tannhof HOCKEY INSTRUCTOR.HANSARD REPORTER Codie Unavailable Dr. Jesus Taylor MD Primary Care Provider [phone] Dr. Schuyler Angel MD Attending Provider Irene Leyva PA-C Attending Provider Irene Leyva PA-C Referring Provider Dr. Jesus Taylor MD Primary Care Provider Jeanne SCHAFER, Dr. Payan Attending Provider Brandon SCHAFER, Dr. Olmos Referring Provider Shantel Hodges Attending Provider [phone] Brandon SCHAFER, Dr. Olmos Primary Care Physician Jeanne SCHAFER, Dr. Payan Attending Physician Irene Leyva PA-C Attending Physician [phone] Shantel Hodges Attending Physician Jesus Taylor Primary [...] Unavail able Jesus Taylor Referring Unavailable Jeanne, Gladstone Attending Unavailable Brandon, Jesus Primary Care Unavailable Jeanne, Gladstone Attending Unavailable Jesus Taylor Primary Care Unavailable [...] Care Unavailable JESUS TAYLOR Primary Care Unavailable CODIE MANN Attending Unavailabl [...] Facility (4 sources) alendronate drug allergy 4 [facility] Work Phone: (20 sources) Alendronate; Translations: [ALENDRONATE SODIUM] Drug Allergy 7 Intolerance, Unknown [facility] Work Phone: (1 source) Alendronate Drug Allergy 5 [facility] Repository (1 source) Alendronate; Translations: [ALENDRONATE] Drug Allergy 4 [facility] Repository Medications Current Medications Medication Drug Class(es) [...] QDAY Start: 11-02-2013 take 2 tablets by [facility] once daily ASPIRIN 81 MG TABS Two tablets by mouth daily ASPIRIN [id number] Caleb Tarango MD Start: 11-02-2013 take [address] [facility] once daily ASPIRIN 81 MG TABS One tablet by mouth daily ASPIRIN [id number] Yaz Childress RN Start: 11-02-2013 take 1 tablet by [facility] once daily ASPIRIN 81 MG TABS One tablet by mouth daily ASPIRIN 50862994737 Yaz Childress RN Start: 11-02-2013 take 2 tablets by [facility] once daily ASPIRIN 81 MG TABS Two tablets by mouth daily ASPIRIN [id number] Caleb Tarango MD Start: 11-02-2013 take 2 tablets by [facility] once daily ASPIRIN EC 81 MG TBEC Two tablets by mouth daily ASPIRIN [id number] Piper John RN Comment on above: Take [address] [facility] once daily. Take with food. doxycycline hyclate [...] capsule 06/18/2024 07/02/2024 Active polyethylene glycol 3350 233226 mg / potassium chloride 2970 mg / sodium bicarbonate 6740 mg / sodium chloride 5860 mg / sodium sulfate 08900 mg powder for oral solution (1 source) [...] x 4 weeks then stop AMIODARONE HCL [id number] Maria A Bronson RN Benzocaine (1 source) [...] mouth twice daily as needed DOCUSATE SODIUM 90648141143 Shantel Shepard PA-C Comment on above: Takes [...] End: 06-05-2016 METOPROLOL SUCCINATE ER 25 MG [id number] One half tablet by mouth daily METOPROLOL SUCCINATE 72136991592 Shantel Shepard PA-C 5 ml midazolam 1 [...] One tablet by mouth daily OMEPRAZOLE MAGNESIUM 98132455086 Yaz Childress RN Start: 11-02-2013 End: 02-08-2014 take 1 tablet by mouth once daily PRILOSEC OTC 20 MG TBEC One tablet by mouth daily OMEPRAZOLE MAGNESIUM 95429686071 Yaz Childress RN polyethylene glycol 3350 88894 mg powder for oral solution (6 sources) [...] 08-30-2013 DEMADEX 10 MG TABS .11 TORSEMIDE [id number] Maria A Bronson RN Start: 08-29-2013 End: [...] every 6 hours as needed TRAMADOL HCL 99883993384 Yaz Childress RN warfarin sodium 6 mg oral tablet (20 sources) Vitamin K Antagonist Start: 04-06-2014 End: 10-12-2014 COUMADIN 6 MG TABS one tablet by mouth every evening with three 1mg tablets, then Take as directed WARFARIN SODIUM 44990949012 Yaz Childress RN Start: 01-31-2014 End: 10-12-2014 COUMADIN 1 MG TABS take 3 ta blets every evening with a 6 mg tablet 4 days/wk or as directed WARFARIN SODIUM [id number] Caleb Tarango MD Start: 01-31-2014 COUMADIN 1 MG TABS take one tablet daily with a 5mg tablet. WARFARIN SODIUM 88618610631 Caleb Tarango MD Start: 10-26-2013 End: 04-06-2014 COUMADIN 5 MG TABS Take as d irected WARFARIN SODIUM 11576578824 Caleb Tarango MD Problems Active Problems Problem [...] 4 01-30-2024 Chronic Comment on above: Medtronic [place] XT D R MRI [id number] Congestive heart [...] ultra valve, valve in valve, 01/20/2024 at [facility]. 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 Ariel Weinberg [address] [place] [address], [phone] Jesus Taylor MD 03/22/2025 11:19 AM Signed [...] to tolerate. HTN/MVR: Follows with Cardio at [facility]. Has pacemaker which is checked [...] 31.8 MCH (more content not included)... Normal [facility] CBC W Auto Differential pane l (Bld)on 03-17-2025 Basophils (Bld) [#/Vol] 0.05 10*3/uL Normal <0.11 [facility] Comment on above: Order Comment: Speci men Type: BLOOD SPECIMEN Ordering Facility: [facility] Address: [address] [place] [address] Performed By: #### 5 7021-8 #### [facility] CLIA [id number] [address] [place] [address] [place] Basophils/100 WBC (Bld) 0.7 % Normal [facility] Comment on above: Order Comment: Speci men Type: BLOOD SPECIMEN Ordering Facility: [facility] Address: [address] [place] [address] Performed By: #### 5 7021-8 #### [facility] CLIA [id number] [address] [place] [address] [place] Differential cell count method Nom (Bld) Auto Normal [facility] Comment on above: Order Comment: Speci men Type: BLOOD SPECIMEN Ordering Facility: [facility] Address: [address] [place] [address] Performed By: #### 5 7021-8 #### [facility] CLIA [id number] [address] [place] [address] [place] Eosinophils (Bld) [#/Vol] 0.18 10*3/uL Normal <0.46 [facility] Comment on above: Order Comment: Speci men Type: BLOOD SPECIMEN Ordering Facility: [facility] Address: [address] [place] [address] Performed By: #### 5 7021-8 #### [facility] CLIA [id number] [address] [place] [address] [place] Eosinophils/100 WBC (Bld) 2.6 % Normal [facility] Comment on above: Order Comment: Speci men Type: BLOOD SPECIMEN Ordering Facility: [facility] Address: [address] [place] [address] Performed By: #### 5 7021-8 #### [facility] CLIA [id number] [address] [place] [address] [place] Erythrocyte distribution width (RBC) [Ratio] 13.4 % Normal 11.5-15.0 [facility] Comment on above: Order Comment: Speci men Type: BLOOD SPECIMEN Ordering Facility: [facility] Address: [address] [place] [address] Performed By: #### 5 7021-8 #### [facility] CLIA [id number] [address] [place] [address] [place] Hematocrit (Bld) [Volume fraction] 43.8 % Normal 39.0-51.0 [facility] Comment on above: Order Comment: Speci men Type: BLOOD SPECIMEN Ordering Facility: [facility] Address: [address] [place] [address] Performed By: #### 5 7021-8 #### [facility] CLIA [id number] [address] [place] [address] [place] Hemoglobin (Bld) [Mass/Vol] 14.1 g/dL Normal 13.0-17.0 [facility] Comment on above: Order Comment: Speci men Type: BLOOD SPECIMEN Ordering Facility: [facility] Address: [address] [place] [address] Performed By: #### 5 7021-8 #### [facility] CLIA [id number] [address] [place] [address] [place] Immature granulocytes (Bld) [#/Vol] 10*3/uL Normal <0.10 [facility] Comment on above: Order Comment: Speci men Type: BLOOD SPECIMEN Ordering Facility: [facility] Address: [address] [place] [address] Performed By: #### 5 7021-8 #### [facility] CLIA [id number] [address] [place] [address] [place] Immature granulocytes/100 WBC (Bld) 0.3 % Normal [facility] Comment on above: Order Comment: Speci men Type: BLOOD SPECIMEN Ordering Facility: [facility] Address: [address] [place] [address] Performed By: #### 5 7021-8 #### [facility] CLIA [id number] [address] [place] [address] [place] Lymphocytes (Bld) [#/Vol] 1.56 10*3/uL Normal 1.00-4.00 [facility] Comment on above: Order Comment: Speci men Type: BLOOD SPECIMEN Ordering Facility: [facility] Address: [address] [place] [address] Performed By: #### 5 7021-8 #### [facility] CLIA [id number] [address] [place] [address] [place] Lymphocytes/100 WBC (Bld) 22.6 % Normal [facility] Comment on above: Order Comment: Speci men Type: BLOOD SPECIMEN Ordering Facility: [facility] Address: [address] [place] [address] Performed By: #### 5 7021-8 #### [facility] CLIA [id number] [address] [place] [address] [place] MCH (RBC) [Entitic mass] 31.8 pg Normal 26.0-34.0 [facility] Comment on above: Order Comment: Speci men Type: BLOOD SPECIMEN Ordering Facility: [facility] Address: [address] [place] [address] Performed By: #### 5 7021-8 #### [facility] CLIA [id number] [address] [place] [address] [place] MCHC (RBC) [Mass/Vol] 32.2 g/dL Normal 30.5-36.0 [facility] Comment on above: Order Comment: Speci men Type: BLOOD SPECIMEN Ordering Facility: [facility] Address: [address] [place] [address] Performed By: #### 5 7021-8 #### [facility] CLIA [id number] [address] [place] [address] [place] MCV (RBC) [Entitic vol] 98.9 fL Normal 80.0-100.0 [facility] Comment on above: Order Comment: Speci men Type: BLOOD SPECIMEN Ordering Facility: [facility] Address: [address] [place] [address] Performed By: #### 5 7021-8 #### [facility] CLIA [id number] [address] [place] [address] [place] Monocytes (Bld) [#/Vol] 0.69 10*3/uL Normal <0.87 [facility] Comment on above: Order Comment: Speci men Type: BLOOD SPECIMEN Ordering Facility: [facility] Address: [address] [place] [address] Performed By: #### 5 7021-8 #### [facility] CLIA [id number] [address] [place] [address] [place] Monocytes/100 WBC (Bld) 10.0 % Normal [facility] Comment on above: Order Comment: Speci men Type: BLOOD SPECIMEN Ordering Facility: [facility] Address: [address] [place] [address] Performed By: #### 5 7021-8 #### [facility] CLIA [id number] [address] [place] [address] [place] Neutrophils (Bld) [#/Vol] 4.41 10*3/uL Normal 1.45-7.50 [facility] Comment on above: Order Comment: Speci men Type: BLOOD SPECIMEN Ordering Facility: [facility] Address: [address] [place] [address] Performed By: #### 5 7021-8 #### [facility] CLIA [id number] [address] [place] [address] [place] Neutrophils/100 WBC (Bld) 63.8 % Normal [facility] Comment on above: Order Comment: Speci men Type: BLOOD SPECIMEN Ordering Facility: [facility] Address: [address] [place] [address] Performed By: #### 5 7021-8 #### [facility] CLIA [id number] [address] [place] [address] [place] Nucleated RBC (Bld) [#/Vol] 10*3/uL Normal <0.01 [facility] Comment on above: Order Comment: Speci men Type: BLOOD SPECIMEN Ordering Facility: [facility] Address: [address] [place] [address] Performed By: #### 5 7021-8 #### [facility] CLIA [id number] [address] [place] [address] [place] Nucleated RBC/100 WBC (Bld) [Ratio] 0.0 /100 WBC Normal [facility] Comment on above: Order Comment: Speci men Type: BLOOD SPECIMEN Ordering Facility: [facility] Address: [address] [place] [address] Performed By: #### 5 7021-8 #### [facility] CLIA [id number] [address] [place] [address] [place] Platelet mean volume (Bld) [Entitic vol] 11.1 fL Normal 9.0-12.7 [facility] Comment on above: Order Comment: Speci men Type: BLOOD SPECIMEN Ordering Facility: [facility] Address: [address] [place] [address] Performed By: #### 5 7021-8 #### [facility] CLIA [id number] [address] [place] [address] [place] Platelets (Bld) [#/Vol] 158 10*3/uL Normal 150-400 [facility] Comment on above: Order Comment: Speci men Type: BLOOD SPECIMEN Ordering Facility: [facility] Address: [address] [place] [address] Performed By: #### 5 7021-8 #### [facility] CLIA [id number] [address] [place] [address] [place] RBC (Bld) [#/Vol] 4.43 10*6/uL Normal 4.20-6.00 [facility] Comment on above: Order Comment: Speci men Type: BLOOD SPECIMEN Ordering Facility: [facility] Address: [address] [place] [address] Performed By: #### 5 7021-8 #### [facility] CLIA [id number] [address] [place] [address] [place] WBC (Bld) [#/Vol] 6.91 10*3/uL Normal 3.70-11.00 [facility] Comment on above: Order Comment: Speci men Type: BLOOD SPECIMEN Ordering Facility: [facility] Address: [address] [place] [address] Performed By: #### 5 7021-8 #### [facility] CLIA [id number] [address] [place] [address] [place] Comprehensive metabolic 2000 panelon 03-17-2025 Albumin [Mass/Vol] 4.1 g/dL Normal 3.9-4.9 [facility] Comment on above: Order Comment: Speci men Type: BLOOD SPECIMEN Ordering Facility: [facility] Address: [address] [place] [address] Performed By: #### 2 4323-8, 3016-3 #### [facility] CLIA [id number] [address] [place] [address] [place] ALP [Catalytic activity/Vol] 66 U/L Normal 38-113 [facility] Comment on above: Order Comment: Speci men Type: BLOOD SPECIMEN Ordering Facility: [facility] Address: [address] [place] [address] Performed By: #### 2 4323-8, 3016-3 #### [facility] CLIA [id number] [address] [place] [address] [place] ALT [Catalytic activity/Vol] 16 U/L Normal 10-54 [facility] Comment on above: Order Comment: Speci men Type: BLOOD SPECIMEN Ordering Facility: [facility] Address: [address] [place] [address] Performed By: #### 2 4323-8, 3016-3 #### [facility] CLIA [id number] [address] [place] [address] [place] Anion gap [Moles/Vol] 7 mmol/L Low 8-15 [facility] Comment on above: Order Comment: Speci men Type: BLOOD SPECIMEN Ordering Facility: [facility] Address: [address] [place] [address] Performed By: #### 2 4323-8, 3016-3 #### [facility] CLIA [id number] [address] [place] [address] [place] AST [Catalytic activity/Vol] 22 U/L Normal 14-40 [facility] Comment on above: Order Comment: Speci men Type: BLOOD SPECIMEN Ordering Facility: [facility] Address: [address] [place] [address] Performed By: #### 2 4323-8, 3015-3 #### [facility] CLIA [id number] [address] [place] [address] [place] Bilirubin [Mass/Vol] 0.3 mg/dL Normal 0.2-1.3 [facility] Comment on above: Order Comment: Speci men Type: BLOOD SPECIMEN Ordering Facility: [facility] Address: [address] [place] [address] Performed By: #### 2 4323-8, 6-3 #### [facility] CLIA [id number] [address] [place] [address] [place] Calcium [Mass/Vol] 9.5 mg/dL Normal 8.5-10.2 [facility] Comment on above: Order Comment: Speci men Type: BLOOD SPECIMEN Ordering Facility: [facility] Address: [address] [place], [place] [address] Performed By: #### 2 4323-8, 3016-3 #### [facility] CLIA [id number] [address] [place] [address] [place] Chloride [Moles/Vol] 106 mmol/L Normal 98-107 [facility] Comment on above: Order Comment: Speci men Type: BLOOD SPECIMEN Ordering Facility: [facility] Address: [address] [place] [address] Performed By: #### 2 4323-8, 3016-3 #### [facility] CLIA [id number] [address] [place] [address] [place] CO2 [Moles/Vol] 29 mmol/L Normal 22-30 [facility] Comment on above: Order Comment: Speci men Type: BLOOD SPECIMEN Ordering Facility: [facility] Address: [address] [place] [address] Performed By: #### 2 4323-8, 3016-3 #### [facility] CLIA [id number] [address] [place] [address] [place] Creatinine [Mass/Vol] 1.17 mg/dL Normal 0.73-1.22 [facility] Comment on above: Order Comment: Speci men Type: BLOOD SPECIMEN Ordering Facility: [facility] Address: [address] [place] [address] Performed By: #### 2 4323-8, 3016-3 #### [facility] CLIA [id number] [address] [place] [address] [place] eGFRcr SerPlBld CKD-EPI 2020 60 mL/min/1.73m??? Normal >=60 [facility] Comment on above: Order Comment: Speci men Type: BLOOD SPECIMEN Ordering Facility: [facility] Address: [address] [place] [address] Result Comment: Linda mated Glomerular Filtration Rate [...] Performed By: #### 2 4323-8, 3016-3 #### [facility] CLIA [id number] [address] [place] [address] [place] Glucose [Mass/Vol] 95 mg/dL Normal 74-99 [facility] Comment on above: Order Comment: Elkin lombardo Type: BLOOD SPECIMEN Ordering Facility: [facility] Address: [address] [place] [address] Result Comment: The [place] Diabetes Association (ADA) provides guidance for cutoff [...] Standards of Medical Care in Diabetes 2016, [place] [employer]. Diabetes Care. 2016.39(Suppl 1). Performed By: #### 2 4323-8, 6-3 #### [facility] CLIA [id number] [address] [place] [address] [place] Potassium [Moles/Vol] 4.3 mmol/L Normal 3.7-5.1 [facility] Comment on above: Order Comment: Elkin lombardo Type: BLOOD SPECIMEN Ordering Facility: [facility] Address: [address] [place] [address] Performed By: #### 2 4323-8, 6-3 #### [facility] CLIA [id number] [address] [place] [address] [place] Protein [Mass/Vol] 7.0 g/dL Normal 6.3-8.0 [facility] Comment on above: Order Comment: Elkin lombardo Type: BLOOD SPECIMEN Ordering Facility: [facility] Address: [address] [place] [address] Performed By: #### 2 4323-8, 3016-3 #### [facility] CLIA [id number] [address] [place] [address] [place] Sodium [Moles/Vol] 142 mmol/L Normal 136-144 [facility] Comment on above: Order Comment: Speci men Type: BLOOD SPECIMEN Ordering Facility: [facility] Address: [address] [place] [address] Performed By: #### 2 4323-8, 3016-3 #### [facility] CLIA [id number] [address] [place] [address] [place] Urea nitrogen [Mass/Vol] 25 mg/dL High 9-24 [facility] Comment on above: Order Comment: Speci men Type: BLOOD SPECIMEN Ordering Facility: [facility] Address: [address] [place] [address] Performed By: #### 2 4323-8, 3016-3 #### [facility] CLIA [id number] [address] [place] [address] [place] TSH SerPl-aCncon 03-17-2025 TSH Qn 0.860 m[IU]/L Normal 0.270-4.200 [facility] Comment on above: Order Comment: Speci men Type: BLOOD SPECIMEN Ordering Facility: [facility] Address: [address] [place] [address] Performed By: #### 2 4323-8, 3016-3 #### [facility] CLIA [id number] [address] [place] [address] [place] Pacemaker Checkon 03-08-2025 Pacemaker Check [facility] [address] [place], [place] [address] Pacemaker Check Date of Service: 03/08/25 1652 MR#: [id number] Acct: [id number] Name: RUPERTO CASTILLO Rep #: [id number] : 1935 From: Anjana Smith Age/Sex: 89/M Location: [facility] Status: Signed Billing Codes PM Device Codes: 61626 PM Dev Prog Eval, Dual Assessment and Plan Assessment and Plan (1) Complete heart block by electrocardiogram: Status: Acute (2) Presence of cardiac pacemaker: Status: Acute Comment: Medtronic Marni XT MRI W1DR01 (3) Diastolic heart failure, NYHA class 3: Status: Acute 03/08/25 1653 Date Anjana Gonzalesmeñoeros Signature: Date (if applicable) CC: Normal [facility] Cardiology Visit Reporton Cardiology Visit Report [place] [address] [place], [place] [address] OFFICE VISIT Date of Service: 12/09/24 MR#: [id number] Acct: [id number] Name: RUPERTO CASTILLO Rep #: [id number] : 1935 Provider: ELICEO Banuelos Age/Sex: 88/M Location: [facility] Status: Signed HPI HPI History of Present Illness Details: Patient is an 88-year-old white male that comes in today for monitoring of his cardiovascular status. 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 [place] at the [facility]. The patient had a thoracentesis done when he was hospitalized there and after the septal ablation developed complete heart block. 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 Patient's last device check [...] room air Intake Visit Reasons: 6 M Microbiology Manager Required: No Accompanied by: Self Is patient [...] normal to (more content not included)... Normal [facility] Anti-dsDNA Abon 11-16-2024 ANTI-DNA (DS)AB 1 IU/mL Normal 0-9 [facility] Comment on above: Result Comment: Nega tive <5 Equivocal 5 - 9 Positive >9 Performed By: #### M 100.2200, L3890.6301, L3890.6202, L3100.7950, L3100.5500, L400.2010, L3100.3450 #### [facility] [address] [place], [address] Antinuclear Antibody, IFAon 11-16-2024 MICHAEL, IFA Negative Normal . [facility] Comment on above: Result Comment: Nega tive <1:80 Borderline 1:80 Positive >1:80 ICAP nomenclature: AC-0 For more information about Hep-2 cell patterns use ANApatterns.org, the official website for the International Consensus on Antinuclear Antibody (MICHAEL) Patterns (ICAP). Performed at: [address] [id number] [employer] Consultant: Taye Nguyen PhD, Phone: [phone] Performed By: #### M 100.2200, L3890.6301, L3890.6202, L3100.7950, L3100.5500, L400.2010, L3100.3450 #### [facility] [address] [place], [place], [id number] Protein Electroph, Son 11-15 Albumin [Mass/Vol] 3.5 g/dL Normal 2.9-4.4 [facility] Comment on above: Performed By: #### M 100.2200, L3890.6301, L3890.6202, L3100.7950, L3100.5500, L400.2010, L3100.3450 #### [facility] [address] [place], [place], [id number] Albumin/Globulin [Mass ratio] 1.2 {ratio} Normal 0.7-1.7 [facility] Comment on above: Performed By: #### M 100.2200, L3890.6301, L3890.6202, L3100.7950, L3100.5500, L400.2010, L3100.3450 #### [facility] [address] [place], [address] ALPHA-1 GLOBUL 0.2 g/dL Normal 0.0-0.4 [facility] Comment on above: Performed By: #### M 100.2200, L3890.6301, L3890.6202, L3100.7950, L3100.5500, L400.2010, L3100.3450 #### [facility] [address] [place], [address] ALPHA-2 GLOBUL 0.6 g/dL Normal 0.4-1.0 [facility] Comment on above: Performed By: #### M 100.2200, L3890.6301, L3890.6202, L3100.7950, L3100.5500, L400.2010, L3100.3450 #### [facility] [address] [place], [address] BETA GLOBULIN 1.0 g/dL Normal 0.7-1.3 [facility] Comment on above: Performed By: #### M 100.2200, L3890.6301, L3890.6202, L3100.7950, L3100.5500, L400.2010, L3100.3450 #### [facility] [address] [place], [address] GAMMA GLOBULIN 1.1 g/dL Normal 0.4-1.8 [facility] Comment on above: Performed By: #### M 100.2200, L3890.6301, L3890.6202, L3100.7950, L3100.5500, L400.2010, L3100.3450 #### [facility] [address] [place], [address] Globulin (S) [Mass/Vol] 2.9 g/dL Normal 2.2-3.9 [facility] Comment on above: Performed By: #### M 100.2200, L3890.6301, L3890.6202, L3100.7950, L3100.5500, L400.2010, L3100.3450 #### [facility] [address] [place], [address] INTERPRETATION Comment Normal . [facility] Comment on above: Result Comment: Prot ein electrophoresis scan will follow via computer, mail, or operational intelligence analyst delivery. Performed By: #### M 100.2200, L3890.6301, L3890.6202, L3100.7950, L3100.5500, L400.2010, L3100.3450 #### [facility] [address] [place], [address] M-SPIKE Not Observed Normal Not Observed [facility] Comment on above: Performed By: #### M 100.2200, L3890.6301, L3890.6202, L3100.7950, L3100.5500, L400.2010, L3100.3450 #### [facility] [address] [place], [address] NOTE: Comment Normal . [facility] Comment on above: Result Comment: The SPE pattern appears unremarkable. Evidence of monoclonal protein is not apparent. Performed at: [facility] [id number] [employer] Consultant: Taye Nguyen PhD, Phone: [phone] Performed By: #### M 100.2200, L3890.6301, L3890.6202, L3100.7950, L3100.5500, L400.2010, L3100.3450 #### [facility] [address] [place], [place], [phone] Protein [Mass/Vol] 6.4 g/dL Normal 6.0-8.5 [facility] Comment on above: Performed By: #### M 100.2200, L3890.6301, L3890.6202, L3100.7950, L3100.5500, L400.2010, L3100.3450 #### [facility] [address] [place], [address] Urine Cultureon 11-13-2024 URC UA WITH REFLEX TO CU LTURE Culture exhibits no growth. Normal [facility] Comment on above: Performed By: #### M 100.2200, L3890.6301, L3890.6202, L3100.7950, L3100.5500, L400.2010, L3100.3450 #### [facility] [address] [place], [place], [address] Albumin Elph [Mass/Vol]Order ed By: Irene Leyva on 11-12-2024 Albumin [Mass/Vol] 3.5 g/dL 2.9-4.4 [facility] Bilirubin Test strip Ql (U)O rdered By: Irene Leyva on 11-12-2024 Bilirubin Ql (U) Negative Negative [facility] Hepatitis B Surface Antibody on 11-12-2024 HEP B Surf Ab Non-Reactive Normal [facility] Comment on above: Order Comment: UA WI TH REFLEX TO CULTURE Result Comment: <8.5 mIU/mL: Non-Reactive 8.5<= x <11.5 mIU/mL: Indeterminate >=11.5 mIU/mL: Reactive Non Reactive: Inconsistent with immunity less than <10 mIU/mL Reactive: Consistent with immunity greater than or equal to 10 mIU/mL Performed By: #### M 100.2200, L3890.6301, L3890.6202, L3100.7950, L3100.5500, L400.2010, L3100.3450 #### [facility] [address] [place], [place], [address] Hepatitis C Antibodyon 11-12 Hepatitis C Ab Non-Reactive Normal Nonreactive [facility] Comment on above: Result Comment: Reac tive: Presumptive evidence of antibodies to HCV. Follow CDC recommendations for supplemental testing. Non-Reactive: Antibodies to HCV were not detected; does not exclude the possibility of exposure to HCV Reactive Results are presumptive evidence of antibodies to HCV. Follow CDC recommendations for supplemental testing. Order confirmation testing: HCV Quant by PCR testing - HCVPCR #[id number] Non Reactive: < 0.8 Equivocal: >/= 0.8 to < 1.0 Reactive: >/= 1.0 The CDC requires that a reactive/equivocal HCV antibody result be sent out for confirmation. HCV Quant by PCR testing. Performed By: #### M 100.2200, L3890.6301, L3890.6202, L3100.7950, L3100.5500, L400.2010, L3100.3450 #### [facility] [address] [place], [address] Ketones Test strip Ql (U)Ord ered By: Irene Leyva on 11-12-2024 Ketones Ql (U) Negative Negative [facility] Nitrite Test strip Ql (U)Ord ered By: Irene Leyva on 11-12-2024 Nitrite Ql (U) Negative Negative [facility] No Panel InformationOrdered By: Irene Leyva on 11-12-2024 Addendum Document Comment . [facility] Comment on above: The SPE pattern appe ars unremarkable. Evidence ofmonoclonal protein is not apparent.Performed at: [facility] [id number] Director: Taye Nguyen PhD, Phone: [phone] Protein Fractions Elph [Inte rp]Ordered By: Irene Leyva on 11-12-2024 Protein Fractions [Interp] Comment . [facility] Comment on above: Protein electrophore sis scan will follow via computer,mail, or operational intelligence analyst delivery. Protein Test strip Ql (U)Ord ered By: Irene Leyva on 11-12-2024 Protein Ql (U) 15 mg/dl High Negative [facility] Serum DNA double strand anti body assay (units/volume)Ordered By: Irene Leyva on 11-12-2024 DNA double strand Ab Qn (S) 1 [IU]/mL 0-9 [facility] Comment on above: Negative <5 Equivoca l 5 - 9 Positive >9 Serum albumin to globulin ra kylee by protein electrophoresisOrdered By: Irene Leyva on 11-12-2024 Albumin/Globulin Elph [Mass ratio] 1.2 0.7-1.7 [facility] Serum globulin measurement ( mass/volume)Ordered By: Irene Leyva on 11-12-2024 Globulin (S) [Mass/Vol] 2.9 g/dL 2.2-3.9 [facility] Serum hepatitis B virus surf gorge antibody detectionOrdered By: Irene Leyva on 11-12-2024 HBV surface Ab Ql (S) Non-Reactive [facility] Comment on above: <8.5 mIU/mL: Non-Ann ctive8.5<= x <11.5 mIU/mL: Indeterminate>=11.5 mIU/mL: Reactive Non Reactive: Inconsistent with immunity less than <10 mIU/mL Reactive: Consistent with immunity greater than or equal to 10 mIU/mL Serum or plasma beta globuli n measurement by electrophoresis (mass/volume)Ordered By: Irene Leyva on 11-12-2024 Beta globulin Elph [Mass/Vol] 1.0 g/dL 0.7-1.3 [facility] Serum or plasma protein madisyn urement (mass/volume)Ordered By: Irene Leyva on 11-12-2024 Protein [Mass/Vol] 6.4 g/dL 6.0-8.5 [facility] Serum or plasma protein mono clonal measurement by electrophoresis (mass/volume)Ordered By: Irene Leyva on 11-12-2024 Protein.monoclonal Elph [Mass/Vol] Not Observed g/dL Not Observed [facility] Urinalysis, Routine (Dipstic k)on 11-12-2024 BILIRUBIN URINE Negative Normal Negative [facility] Comment on above: Order Comment: CLEAN CATCH Performed By: #### M 100.2200, L3890.6301, L3890.6202, L3100.7950, L3100.5500, L400.2010, L3100.3450 #### [facility] [address] [place], [address] Clarity (U) Clear Normal Clear [facility] Comment on above: Order Comment: CLEAN CATCH Performed By: #### M 100.2200, L3890.6301, L3890.6202, L3100.7950, L3100.5500, L400.2010, L3100.3450 #### [facility] [address] [place], [address] Color (U) Straw Normal Yellow [facility] Comment on above: Order Comment: CLEAN CATCH Performed By: #### M 100.2200, L3890.6301, L3890.6202, L3100.7950, L3100.5500, L400.2010, L3100.3450 #### [facility] [address] [place], [address] GLUCOSE, UR Normal Normal Normal [facility] Comment on above: Order Comment: CLEAN CATCH Performed By: #### M 100.2200, L3890.6301, L3890.6202, L3100.7950, L3100.5500, L400.2011, L3100.3450 #### [facility] [address] [place], [address] KETONE UR Negative Normal Negative [facility] Comment on above: Order Comment: CLEAN CATCH Performed By: #### M 100.2200, L3890.6301, L3890.6202, L3100.7950, L3100.5500, L400.2010, L3100.3450 #### [facility] [address] [place], [address] LEUK ESTERASE 25 /ul Abnormal Negative [facility] Comment on above: Order Comment: CLEAN CATCH Performed By: #### M 100.2200, L3890.6301, L3890.6202, L3100.7950, L3100.5500, L400.2010, L3100.3450 #### [facility] [address] [place], [address] Nitrite Ql (U) Negative Normal Negative [facility] Comment on above: Order Comment: CLEAN CATCH Performed By: #### M 100.2200, L3890.6301, L3890.6202, L3100.7950, L3100.5500, L400.2010, L3100.3450 #### [facility] [address] [place], [address] OCCULT BLOOD-UR Negative Normal Negative [facility] Comment on above: Order Comment: CLEAN CATCH Performed By: #### M 100.2200, L3890.6301, L3890.6202, L3100.7950, L3100.5500, L400.2010, L3100.3450 #### [facility] [address] [place], [address] pH UR 7.0 Normal 5.0 - 8.0 [facility] Comment on above: Order Comment: CLEAN CATCH Performed By: #### M 100.2200, L3890.6301, L3890.6202, L3100.7950, L3100.5500, L400.2010, L3100.3450 #### [facility] [address] [place], [address] PROT DIPSTX 15 mg/dl Abnormal Negative [facility] Comment on above: Order Comment: CLEAN CATCH Performed By: #### M 100.2200, L3890.6301, L3890.6202, L3100.7950, L3100.5500, L400.2010, L3100.3450 #### [facility] [address] [place], [address] SP.GR. DIPSTX 1.015 Normal 1.002-1.030 [facility] Comment on above: Order Comment: CLEAN CATCH Performed By: #### M 100.2200, L3890.6301, L3890.6202, L3100.7950, L3100.5500, L400.2010, L3100.3450 #### [facility] [address] [place], [address] UROBILI Normal Normal Normal [facility] Comment on above: Order Comment: CLEAN CATCH Performed By: #### M 100.2200, L3890.6301, L3890.6202, L3100.7950, L3100.5500, L400.2010, L3100.3450 #### [facility] [address] [place], [address] Urine clarityOrdered By: Nadeen villeda [place] on 11-12-2024 Clarity (U) Clear Clear [facility] Urine color determinationOrd ered By: Irene [place] on 11-12-2024 Color (U) Straw Yellow [facility] Urine cultureOrdered By: Nadeen villeda [place] on 11-12-2024 Bacteria identified Cx Nom (U) Culture exhibits no growth. [facility] Urine glucose detectionOrder ed By: Irene Leyva on 11-12-2024 Glucose Ql (U) Normal mg/dl Normal [facility] Urine leukocyte esterase det ection by dipstickOrdered By: Irene Leyva on 11-12-2024 Leukocyte esterase Test strip Ql (U) 25 /ul High Negative [facility] Urine pHOrdered By: Irene sanchez on 11-12-2024 pH (U) 7.0 [pH] 5.0 - 8.0 [facility] Urine specific gravity measu rementOrdered By: Irene Leyva on 11-12-2024 Specific gravity (U) [Rel density] 1.015 1.002-1.030 [facility] Urine urobilinogen measureme ntOrdered By: Irene Leyva on 11-12-2024 Urobilinogen Ql (U) Normal mg/dl Normal [facility] CNOVon 11-08-2024 CNOV Office Visit (GENSWS ) ----- RUPERTO CASTILLO ([id number]) 1935 Date Time Provider Department 11/08/24 9:00 AM PENNIE RUELAS GENZANA During your visit today, we recorded the following information about you: Pennie Ruelas APRN.CNP 11/08/2024 9:20 AM Signed FOLLOW UP VISIT - ENDOSCOPY Ruperto Castillo 1935 [id number] REFERRING PHYSICIAN: No referring provider defined for [...] needed for worsening/no improvement. 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 Normal [facility] [id number] 11-01-2024 [id number] HNO ID: [id number] Author: LAILA GARLAND RN Service: ? Author Type: Registered Nurse Type: [id number] Filed: 11/01/2024 10:58 Note Text: The patient received a copy of Colonoscopy discharge instructions that contain information for how to contact the physician who performed the procedure and when to seek medical care. Normal [facility] Colonoscopyon 11-01-2024 Colonoscopy [facility] Patient Name: Ruperto Castillo [...] prior dose. Procedure Code(s): --- Professional --- 13971, Colonoscopy, flexible; with removal of tumor(s), polyp(s), or other lesion(s) by snare technique G0500, Moderate sedation services provided by the same physician or other qualified health emergency care tech performing a gastrointestinal endoscopic service that sedation supports, requiring the presence of an independent trained observer to assist in the monitoring of the patient's level of consciousness and physiological status; initial 15 minutes of intra-service time; patient age 5 years or older (additional time may be reported with 12035, as appropriate) Diagnosis Code(s): --- Professional --- Z12.11, Encounter for screening for malignant neoplasm of colon Z80.0, Family history of malignant neoplasm of digestive organs K64.8, Other hemorrhoids D12.5, Benign neoplasm of sigmoid colon D12.3, Benign neoplasm of transverse colon (hepatic flexure or splenic flexure) CPT copyright 2020 [employer]. All rights reserved. The codes documented in (more content not included)... Normal [facility] Colonoscopy Study observatio non 11-01-2024 [facility] Patient Name: Ruperto Castillo [...] referring provid (more content not included)... [facility] Radiology Study observation (narrative) [facility] HISTORY PHYSICALon HISTORY PHYSICAL HNO ID: [id number] Author: FRITZ POPE MD Service: General Surgery Author Type: Physician Type: H&P Filed: 11/01/2024 10:08 Note Text: HISTORY AND PHYSICAL Ruperto Eboni Mast : 1935 REFERRING PHYSICIAN: Jesus Taylor [address] [facility] [address] CHIEF COMPLAINT: Patient presents with: Consult: Here [...] ulcers/ peptic ulcer disease. Ruperto follows with [facility] for MVR and HTN. 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 Last OV 05/2024. Last pacer check:08/10/24. Last ECHO 05/2024 EF: 55%.He denies CP, SOB, dizziness, palpitations, syncope, edema, recent hospitalizations Other medical history is significant for hypothyroidism,osteoporos is and chronic constipation. Ruperto has undergone prior endoscopy. Last colonoscopy was 10/[address] Arteaga at [facility]. Sedation:Midazolam 4 mg IV, Fentanyl 50 micrograms IV Impression: - The examined portion of the ileum was normal. - One 5 mm polyp in the descending colon, removed with a cold biopsy forceps. Resected and retrieved. - One 7 mm polyp at the hepatic flexure, removed with a cold snare. Resected and retrieved. [facility] was [facility]. - Melanosis in the colon. [...] circulation. Respiratory: (more content not included)... Normal [facility] Pathology biopsy report Bunny (Tiss)on 11-01-2024 AP DISCLAIMER Normal [facility] Comment on above: Order Comment: Speci men Type: BLOOD SPECIMEN Ordering Facility: [facility] Address: [address] [place] [address] Result Comment: Georgia jensen Developed Test (LDT) Disclaimer: Performance characteristics of immunohistochemical, immunofluorescent, and chromogenic in-situ hybridization tests have been determined by the performing laboratory within [facility] Pathology and Laboratory Medicine Department ([facility], [facility], [facility], [facility], [facility], [facility], or [facility]) in a manner consistent with CLIA requirements. [...] Performed By: #### 2 4323-8, 6-3 #### [facility] CLIA [id number] [address] [place] [address] [place] CASE REPORT Normal [facility] Comment on above: Order Comment: Speci men Type: BLOOD SPECIMEN Ordering Facility: [facility] Address: [address] [place] [address] Result Comment: Surg ica Pathology Report Case: [id number] Authorizing Provider: Fritz Pope MD Collected: 11/01/2024 10:38 AM Ordering Location: Ambulatory Surgery Received: 11/01/2024 12:04 PM Pathologist: Li Ledezma MD Specimens: A) - Colon, Transverse, Polyp B) - Colon, Sigmoid, Polyp Performed By: #### 2 4323-8, 3016-3 #### [facility] CLIA [id number] [address] [place] [address] OF [place] FINAL DIAGNOSIS Normal [facility] Comment on above: Order Comment: Speci men Type: BLOOD SPECIMEN Ordering Facility: [facility] Address: [address] [place] [address] Result Comment: A. C olon, transverse, polyp, polypectomy - Tubular adenoma B. Colon, sigmoid, polyp, polypectomy - Tubular adenoma at 1243 EDT Performed By: #### 2 4323-8, 3016-3 #### [facility] CLIA [id number] [address] [place] [address] [place] FINAL PERFORMING LAB Normal [facility] Comment on above: Order Comment: Speci men Type: BLOOD SPECIMEN Ordering Facility: [facility] Address: [address] [place] [address] Result Comment: Diag nostic interpretation performed at: [facility], [address] [place] [address] CLIA# [id number] Personnel Coordinator: Mikey Park MD Performed By: #### 2 4323-8, 6-3 #### [facility] CLIA [id number] [address] [place] [address] OF [facility] GROSS DESCRIPTION Normal [facility] Comment on above: Order Comment: Speci men Type: BLOOD SPECIMEN Ordering Facility: [facility] Address: [address] [place] [address] Result Comment: A. C olon, Transverse, Polyp Received in formalin are multiple pieces of red-brown, soft tissue aggregating to 2.0 x 0.5 x 0.2 cm. Totally submitted in two cassettes. B. Colon, Sigmoid, Polyp Received in formalin is one piece of kent, soft tissue measuring 0.5 x 0.3 x 0.2 cm. Totally submitted in one cassette. Gross examination performed at [facility], [address] [place] [address] November 01, 2024 6:19 PM Performed By: #### 2 4323-8, 3016-3 #### [facility] CLIA [id number] [address] [place] [address] [place] CNOVon 10-05-2024 CNOV Office Visit (GENSWS ) ----- YANIVRUPERTO ([id number]) 1935 M Date Time Provider Department 10/05/24 10:30 AM PENNIE RUELAS During your visit today, we recorded the following information about you: Pulse Respiration Blood pressure Weight 75/minute 16/minute 154/71 67.8 kg Pennie Ruelas APRN.CNP 10/05/2024 12:08 PM Signed HISTORY AND PHYSICAL Ruperto Castillo : 1935 REFERRING PHYSICIAN: Jesus Taylor [address] [facility] [address] CHIEF COMPLAINT: Patient presents with: Consult: Here [...] ulcers/ peptic ulcer disease. Ruperto follows with [facility] for MVR and HTN. 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 Last OV 05/2024. Last pacer check:08/10/24. Last ECHO 05/2024 EF: 55%.He denies CP, SOB, dizziness, palpitations, syncope, edema, recent hospitalizations Other medical history is significant for hypothyroidism,osteoporos is and chronic constipation. Ruperto has undergone prior endoscopy. Last colonoscopy was 10/[address] Arteaga at [facility]. Sedation:Midazolam 4 mg IV, Fentanyl 50 micrograms [...] denies bloody (more content not included)... Normal [facility] CNOV Office Visit (FAMPWS ) ----- RUPERTO CASTILLO ([id number]) 1935 M Date Time Provider Department 10/05/24 9[facility]00 [facility] visit today, we recorded [...] Denies any missed dosages. Follows with Cardio, [facility] (every 6 months) for MVR [...] Influenza Vaccine (more content not included)... Normal [facility] metabolic 2000 panelon 10-01-2024 Albumin [Mass/Vol] 3.9 g/dL Normal 3.9-4.9 [facility] Comment on above: Order Comment: Speci men Type: BLOOD SPECIMEN Ordering Facility: [facility] Address: [address] [id number] Performed By: #### 2 4323-8, 3016-3 #### [facility] CLIA [id number] [address] [place] [address] [place] ALP [Catalytic activity/Vol] 64 U/L Normal 38-113 [facility] Comment on above: Order Comment: Speci men Type: BLOOD SPECIMEN Ordering Facility: [facility] Address: [address] [place] [address] Performed By: #### 2 4323-8, 3015-3 #### [facility] CLIA [id number] [address] [place] [address] [place] ALT [Catalytic activity/Vol] 21 U/L Normal 10-54 [facility] Comment on above: Order Comment: Speci men Type: BLOOD SPECIMEN Ordering Facility: [facility] Address: [address] [place] [address] Result Comment: Resu lts may be falsely increased due to interference from hemolysis. Suggest reorder as clinically indicated. Performed By: #### 2 4323-8, 6-3 #### [facility] CLIA [id number] [address] [place] [address] [place] Anion gap [Moles/Vol] 10 mmol/L Normal 8-15 [facility] Comment on above: Order Comment: Speci men Type: BLOOD SPECIMEN Ordering Facility: [facility] Address: [address] [place], [place] [address] Performed By: #### 2 4323-8, 3016-3 #### [facility] CLIA [id number] [address] [id number] [place] AST [Catalytic activity/Vol] 40 U/L Normal 14-40 [facility] Comment on above: Order Comment: Speci men Type: BLOOD SPECIMEN Ordering Facility: [facility] Address: [address] [place] [address] Result Comment: Resu lts may be falsely increased due to interference from hemolysis. Suggest reorder as clinically indicated. Performed By: #### 2 4323-8, 6-3 #### [facility] CLIA [id number] [address] [place] [address] [place] Bilirubin [Mass/Vol] 0.3 mg/dL Normal 0.2-1.3 [facility] Comment on above: Order Comment: Speci men Type: BLOOD SPECIMEN Ordering Facility: [facility] Address: [address] [place] [address] Performed By: #### 2 4323-8, 3015-3 #### [facility] CLIA [id number] [address] [place] [address] [place] Calcium [Mass/Vol] 8.9 mg/dL Normal 8.5-10.2 [facility] Comment on above: Order Comment: Speci men Type: BLOOD SPECIMEN Ordering Facility: [facility] Address: [address] [place] [address] Performed By: #### 2 4323-8, 3015-3 #### [facility] CLIA [id number] [address] [place] [address] [place] Chloride [Moles/Vol] 105 mmol/L Normal 98-107 [facility] Comment on above: Order Comment: Speci men Type: BLOOD SPECIMEN Ordering Facility: [facility] Address: [address] [place], [place] [address] Performed By: #### 2 4323-8, 6-3 #### [facility] CLIA [id number] [address] [place] [address] [place] CO2 [Moles/Vol] 24 mmol/L Normal 22-30 [facility] Comment on above: Order Comment: Speci men Type: BLOOD SPECIMEN Ordering Facility: [facility] Address: [address] [place] [address] Performed By: #### 2 4323-8, 3016-3 #### [facility] CLIA [id number] [address] [place] [address] [place] Creatinine [Mass/Vol] 1.06 mg/dL Normal 0.73-1.22 [facility] Comment on above: Order Comment: Speci men Type: BLOOD SPECIMEN Ordering Facility: [facility] Address: [address] [place] [address] Performed By: #### 2 4323-8, 6-3 #### [facility] CLIA [id number] [address] [place] [address] [place] Creatinine and Glomerular filtration rate.predicted panel (S/P/Bld) 68 mL/min/1.73m??? Normal >=60 [facility] Comment on above: Order Comment: Speci men Type: BLOOD SPECIMEN Ordering Facility: [facility] Address: [address] [place] [address] Result Comment: Linda mated Glomerular Filtration Rate [...] Performed By: #### 2 4323-8, 3015-3 #### [facility] CLIA [id number] [address] [place] [address] [place] Glucose [Mass/Vol] 81 mg/dL Normal 74-99 [facility] Comment on above: Order Comment: Speci men Type: BLOOD SPECIMEN Ordering Facility: [facility] Address: [address] [place] [address] Result Comment: The [place] [employer] Association (ADA) provides guidance for cutoff [...] Standards of Medical Care in Diabetes 2016, [place] [employer]. Diabetes Care. 2016.39(Suppl 1). Performed By: #### 2 4323-8, 3015-3 #### [facility] CLIA [id number] [address] [place] [address] [place] Potassium [Moles/Vol] 4.5 mmol/L Normal 3.7-5.1 [facility] Comment on above: Order Comment: Speci men Type: BLOOD SPECIMEN Ordering Facility: [facility] Address: [address] [place] [address] Performed By: #### 2 4323-8, 3 #### [facility] CLIA [id number] [address] [place] [address] [place] Protein [Mass/Vol] 7.0 g/dL Normal 6.3-8.0 [facility] Comment on above: Order Comment: Speci men Type: BLOOD SPECIMEN Ordering Facility: [facility] Address: [address] [place] [address] Performed By: #### 2 4323-8, 3 #### [facility] CLIA [id number] [address] [id number] [place] Sodium [Moles/Vol] 139 mmol/L Normal 136-144 [facility] Comment on above: Order Comment: Speci men Type: BLOOD SPECIMEN Ordering Facility: [facility] Address: [address] [place] [address] Performed By: #### 2 4323-8, 3015-3 #### [facility] CLIA [id number] [address] [place] [address] [place] Urea nitrogen [Mass/Vol] 26 mg/dL High 9-24 [facility] Comment on above: Order Comment: Speci men Type: BLOOD SPECIMEN Ordering Facility: [facility] Address: [address] [place] [address] Performed By: #### 2 4323-8, 3016-3 #### [facility] CLIA [id number] [address] [place] [address] [place] TSH SerPl-aCncon 10-01-2024 TSH Qn 0.619 m[IU]/L Normal 0.270-4.200 [facility] Comment on above: Order Comment: Specscott lombardo Type: BLOOD SPECIMEN Ordering Facility: [facility] Address: [address] [place] [address] Performed By: #### 2 4323-8, 3016-3 #### [facility] CLIA [id number] [address] [place] [address] [place] CNPNon 08-30-2024 CNPN Telephone ([facility]) ----- RUPERTO CASTILLO ([id number]) 1935 M Date Time Provider Department 08/30/24 CODIE MANN [facility] During your visit today, we recorded the [...] dermatology prior to actual OV. Faxed to [phone] per request. Provider Line [phone] for additional questions. 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] 10/26/2009 Gcaqjzd-cn-edj [K60.30] 03/23/2012 Perianal abscess [K61.0] 03/23/2012 08/27/2017 [...] Status:Closed by JAGRUTI TIDWELL on 08/30/24 Normal [facility] CNOVon 07-21-2024 CNOV Office Visit ([facility] ) ----- RUPERTO CASTILLO ([id number]) 1935 M Date Time Provider Department 07/21/24 8:45 AM WINIFRED VALLEJO [facility] During your visit today, we recorded the following information about you: Pulse Blood pressure Weight Height 84/minute 112/62 64.9 kg 1.676 m Winifred Vallejo MD 07/21/2024 10:31 AM Signed [facility] Department of Cardiovascular Medicine SECTION OF CLINICAL CARDIOLOGY OUTPATIENT VISIT DATE July 21, 2024 OUTPATIENT VISIT TYPE ESTABLISHED PRIMARY CARE PHYSICIAN: Jesus Taylor [address] [place] [address] REFERRING PHYSICIAN: Lalita Perkins [address] [facility] [address] CHIEF COMPLAINT: Routine follow-up HISTORY OF PRESENT ILLNESS: Mr. Castillo is a 88 year old male who presents today for a cardiovascular medicine follow-up visit. Patient had undergone a szlnn-vo-rdatn transcatheter mitral valve replacement (Luisa TMVR) with [...] Technically diffic (more content not included)... Normal [facility] ECG COMPLETEon 07-21-2024 ECG COMPLETE Ventricular Rate : 8 4 BPM Atrial Rate : 84 BPM P-R Interval : 214 ms QRS Duration : 106 ms Q-T Interval : 390 ms QTC Calculation(Bazett) : 460 ms Calculated P [place] : 17 degrees Calculated R [place] : 87 degrees Calculated T [place] : 13 degrees ATRIAL-SENSED VENTRICULAR-PACED RHYTHM WITH PROLONGED AV CONDUCTION WITH OCCASIONAL PREMATURE VENTRICULAR COMPLEXES ABNORMAL ECG Confirmed by EREN SONI MD ([id number]) on 08/03/2024 8:46:44 PM NAME : RUPERTO CASTILLO PID : [id number] : 1935 Gender : Male Race : ORD : [id number] Procedure Date : Jul 21 2024 08:47:22 Edit Date : Aug 03 2024 20:46:47 Diagnosis: ATRIAL-SENSED VENTRICULAR-PACED RHYTHM WITH PROLONGED AV CONDUCTION WITH OCCASIONAL PREMATURE VENTRICULAR COMPLEXES ABNORMAL ECG Confirmed by EREN SONI MD ([id number]) on 08/03/2024 8:46:44 PM Test Reason : Location : 314 : J14 Overread By : EREN SONI MD Edited By : EREN SONI MD Referred By : LALITA PERKINS Acquired by : KRISTEN CARTER Normal [facility] CNOVon 07-08-2024 CNOV Office Visit ([facility] ) ----- RUPERTO CASTILLO ([id number]) 1935 M Date Time Provider Department 07/08/24 9:40 AM CODIE MANN During your visit today, we recorded the following information about you: Pulse Respiration Blood pressure Weight 74/minute 16/minute 110/60 66.8 kg Codie Mann, ARON.HANSARD REPORTER 07/08/2024 1:15 PM Signed This is a [...] steriod cream/oin (more content not included)... Normal [facility] CNOVon 06-18-2024 CNOV Office Visit ([facility] ) ----- RUPERTO CASTILLO ([id number]) 1935 M Date Time Provider Department 06/18/24 8:40 AM [facility] During your visit today, we recorded [...] - Unknown (more content not included)... Normal [facility] 12 Lead EKG performed by [facility] on 06-08-2024 12 Lead EKG performed by [address] [address] 12 Lead EKG performed by [facility] 06/08/24 1536 MR#: [id number] Acct: [id number] Name: RUPERTO CASTILLO Rep #: [id number] : 1935 88 From: Eren Winslow MD Attending Dr: Dr. Eren Winslow MD Status: BHAKTA Ordering Dr: Eren Winslow MD Date: 06/08/24 [place] [facility] M C Admitted: [facility]/12 Lead EKG performed by [facility] ECG Report Interpretation -Normal sinus rhythm, rate 80 Electronic Ventricular Pacer Tracking Atrial RateABNORMALElectronicvimal y signed on 06/08/2024 at 08:[address] Eren Winslow [employer] Version 8610 06/08/24 0900 Date Eren Winslow MD CC: Dr. Jesus Taylor MD Date Dictated: 06/08/24 153 Date Transcribed: 06/08/241535 Numerical Control Machine Machinist: Signed Normal [facility] Cardiology Visit Reporton Cardiology Visit Report [facility] [address] [place] [address] OFFICE VISIT Date of Service: 06/08/24 MR#: [id number] Acct: [id number] Name: RUPERTO CASTILLO Rep #: [id number] : 1935 Provider: Dr. Eren severino MD Age/Sex: 88/M Location: [facility] Status: Signed HPI HPI History of Present Illness Details: Patient is an 88-year-old white male that comes in today for monitoring of his cardiovascular status. 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 Aldana at the [facility]. The patient had a thoracentesis done when he was hospitalized there and after the septal ablation developed complete heart block. 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 Patient's last device check [...] air Intake Visit Reasons: 3 M FU Microbiology Manager Required: No Accompanied by: Self Is patient [...] Pacemaker/ICD Yes (more content not included)... Normal [facility] Echo Completeon 05-27-2024 Echo Complete [facility] [address] [place] [address] Echo Complete 05/27/24 0855 MR#: [id number] Acct: [id number] Name: RUPERTO CASTILLO Rep #: [id number] : 1935 88 From: Schuyler Angel MD [...] Date Dictated: 05/27/24 0855 Date Transcribed: 05/27/241213 Numerical Control Machine Machinist: Signed Normal [facility] CNOVon 04-06-2024 CNOV Office Visit (FAMPWS ) ----- RUPERTO CASTILLO ([id number]) 1935 M Date Time Provider Department 04/06/24 [...] having his valve replaced. Pt following with [facility]. Pt overall [...] Alkaline Phosphata (more content not included)... Normal [facility] CBC W Auto Differential pane l (Bld)on 04-02-2024 Basophils (Bld) [#/Vol] 0.04 10*3/uL Normal <0.11 [facility] Comment on above: Order Comment: Speci men Type: BLOOD SPECIMEN Ordering Facility: [facility] Address: [address] [place] [address] Performed By: #### 2 4323-8, 6-3 #### [facility] CLIA [id number] [address] [place] [address] [place] Basophils/100 WBC (Bld) 0.7 % Normal C [facility] Comment on above: Order Comment: Speci men Type: BLOOD SPECIMEN Ordering Facility: [facility] Address: [address] [place] [address] Performed By: #### 2 4323-8, 6-3 #### [facility] CLIA [id number] [address] [place] [address] [place] Differential cell count method Nom (Bld) Auto Normal [facility] Comment on above: Order Comment: Speci men Type: BLOOD SPECIMEN Ordering Facility: [facility] Address: [address] [place] [address] Performed By: #### 2 4323-8, 3016-3 #### [facility] CLIA [id number] [address] [place] [address] [place] Eosinophils (Bld) [#/Vol] 0.25 10*3/uL Normal <0.46 [facility] Comment on above: Order Comment: Speci men Type: BLOOD SPECIMEN Ordering Facility: [facility] Address: [address] [place] [address] Performed By: #### 2 4323-8, 6-3 #### [facility] CLIA [id number] [address] [place], [place] [address] [place] Eosinophils/100 WBC (Bld) 4.3 % Normal [facility] Comment on above: Order Comment: Speci men Type: BLOOD SPECIMEN Ordering Facility: [facility] Address: [address] [place] [address] Performed By: #### 2 4323-8, 3015-3 #### [facility] CLIA [id number] [address] [place] [address] [place] Erythrocyte distribution width (RBC) [Ratio] 14.7 % Normal 11.5-15.0 [facility] Comment on above: Order Comment: Speci men Type: BLOOD SPECIMEN Ordering Facility: [facility] Address: [address] [place] [address] Performed By: #### 2 4323-8, 3015-3 #### [facility] CLIA [id number] [address] [place] [address] [place] Hematocrit (Bld) [Volume fraction] 42.9 % Normal 39.0-51.0 [facility] Comment on above: Order Comment: Speci men Type: BLOOD SPECIMEN Ordering Facility: [facility] Address: [address] [place] [address] Performed By: #### 2 4323-8, 6-3 #### [facility] CLIA [id number] [address] [place] [address] [place] Hemoglobin (Bld) [Mass/Vol] 13.8 g/dL Normal 13.0-17.0 [facility] Comment on above: Order Comment: Speci men Type: BLOOD SPECIMEN Ordering Facility: [facility] Address: [address] [place], [place] [address] Performed By: #### 2 4323-8, 3016-3 #### [facility] CLIA [id number] [address] [place] [address] [place] Immature granulocytes (Bld) [#/Vol] 10*3/uL Normal <0.10 [facility] Comment on above: Order Comment: Speci men Type: BLOOD SPECIMEN Ordering Facility: [facility] Address: [address] [place] [address] Performed By: #### 2 4323-8, 3015-3 #### [facility] CLIA [id number] [address] [place] [address] [place] Immature granulocytes/100 WBC (Bld) 0.3 % Normal [facility] Comment on above: Order Comment: Speci men Type: BLOOD SPECIMEN Ordering Facility: [facility] Address: [address] [place] [address] Performed By: #### 2 432-8, 3015-3 #### [facility] CLIA [id number] [address] [place] [address] [place] Lymphocytes (Bld) [#/Vol] 1.33 10*3/uL Normal 1.00-4.00 [facility] Comment on above: Order Comment: Speci men Type: BLOOD SPECIMEN Ordering Facility: [facility] Address: [address] [place] [address] Performed By: #### 2 4323-8, 3015-3 #### [facility] CLIA [id number] [address] [place] [address] [place] Lymphocytes/100 WBC (Bld) 22.7 % Normal [facility] Comment on above: Order Comment: Speci men Type: BLOOD SPECIMEN Ordering Facility: [facility] Address: [address] [place] [address] Performed By: #### 2 4323-8, 6-3 #### [facility] CLIA [id number] [address] [place] [address] [place] MCH (RBC) [Entitic mass] 30.5 pg Normal 26.0-34.0 [facility] Comment on above: Order Comment: Speci men Type: BLOOD SPECIMEN Ordering Facility: [facility] Address: [address] [place] [address] Performed By: #### 2 4323-8, 3016-3 #### [facility] CLIA [id number] [address] [place] [address] [place] MCHC (RBC) [Mass/Vol] 32.2 g/dL Normal 30.5-36.0 [facility] Comment on above: Order Comment: Speci men Type: BLOOD SPECIMEN Ordering Facility: [facility] Address: [address] [place] [address] Performed By: #### 2 4323-8, 3016-3 #### [facility] CLIA [id number] [address] [place] [address] [place] MCV (RBC) [Entitic vol] 94.7 fL Normal 80.0-100.0 C [facility] Comment on above: Order Comment: Speci men Type: BLOOD SPECIMEN Ordering Facility: [facility] Address: [address] [place] [address] Performed By: #### 2 4323-8, 3016-3 #### [facility] CLIA [id number] [address] [place] [address] [place] Monocytes (Bld) [#/Vol] 0.47 10*3/uL Normal <0.87 [facility] Comment on above: Order Comment: Speci men Type: BLOOD SPECIMEN Ordering Facility: [facility] Address: [address] [place] [address] Performed By: #### 2 4323-8, 3016-3 #### [facility] CLIA [id number] [address] [id number] [address] [place] Monocytes/100 WBC (Bld) 8.0 % Normal C [facility] Comment on above: Order Comment: Speci men Type: BLOOD SPECIMEN Ordering Facility: [facility] Address: [address] [place] [address] Performed By: #### 2 4323-8, 3016-3 #### [facility] CLIA [id number] [address] [place] [address] [place] Neutrophils (Bld) [#/Vol] 3.76 10*3/uL Normal 1.45-7.50 [facility] Comment on above: Order Comment: Speci men Type: BLOOD SPECIMEN Ordering Facility: [facility] Address: [address] [place] [address] Performed By: #### 2 4323-8, 3015-3 #### [facility] CLIA [id number] [address] [place] [address] [place] Neutrophils/100 WBC (Bld) 64.0 % Normal [facility] Comment on above: Order Comment: Speci men Type: BLOOD SPECIMEN Ordering Facility: [facility] Address: [address] [place] [address] Performed By: #### 2 4323-8, 6-3 #### [facility] CLIA [id number] [address] [place] [address] [place] Nucleated RBC (Bld) [#/Vol] 10*3/uL Normal <0.01 [facility] Comment on above: Order Comment: Speci men Type: BLOOD SPECIMEN Ordering Facility: [facility] Address: [address] [place] [address] Performed By: #### 2 4323-8, 3016-3 #### [facility] CLIA [id number] [address] [place] [address] [place] Nucleated RBC/100 WBC (Bld) [Ratio] 0.0 /100 WBC Normal [facility] Comment on above: Order Comment: Speci men Type: BLOOD SPECIMEN Ordering Facility: [facility] Address: [address] [place] [address] Performed By: #### 2 4323-8, 3016-3 #### [facility] CLIA [id number] [address] [place] [address] [place] Platelet mean volume (Bld) [Entitic vol] 10.1 fL Normal 9.0-12.7 [facility] Comment on above: Order Comment: Speci men Type: BLOOD SPECIMEN Ordering Facility: [facility] Address: [address] [place] [address] Performed By: #### 2 4323-8, 3016-3 #### [facility] CLIA [id number] [address] [place] [address] [place] Platelets (Bld) [#/Vol] 143 10*3/uL Low 150-400 [facility] Comment on above: Order Comment: Speci men Type: BLOOD SPECIMEN Ordering Facility: [facility] Address: [address] [place] [address] Performed By: #### 2 4323-8, 3016-3 #### [facility] CLIA [id number] [address] [place] [address] [place] RBC (Bld) [#/Vol] 4.53 10*6/uL Normal 4.20-6.00 [facility] Comment on above: Order Comment: Speci men Type: BLOOD SPECIMEN Ordering Facility: [facility] Address: [address] [place] [address] Performed By: #### 2 4323-8, 3016-3 #### [facility] CLIA [id number] [address] [place] [address] [place] WBC (Bld) [#/Vol] 5.87 10*3/uL Normal 3.70-11.00 [facility] Comment on above: Order Comment: Speci men Type: BLOOD SPECIMEN Ordering Facility: [facility] Address: [address] [id number] Performed By: #### 2 4323-8, 3016-3 #### [facility] CLIA [id number] [address] [place] [address] [place] Comprehensive metabolic 2000 panelon 04-02-2024 Albumin [Mass/Vol] 4.0 g/dL Normal 3.9-4.9 [facility] Comment on above: Order Comment: Speci men Type: BLOOD SPECIMEN Ordering Facility: [facility] Address: [address] [place] [address] Performed By: #### 2 4323-8, 3016-3 #### [facility] CLIA [id number] [address] [place] [address] [place] ALP [Catalytic activity/Vol] 72 U/L Normal 38-113 [facility] Comment on above: Order Comment: Speci men Type: BLOOD SPECIMEN Ordering Facility: [facility] Address: [address] [place] [address] Performed By: #### 2 4323-8, 3016-3 #### [facility] CLIA [id number] [address] [place] [address] [place] ALT [Catalytic activity/Vol] 19 U/L Normal 10-54 [facility] Comment on above: Order Comment: Speci men Type: BLOOD SPECIMEN Ordering Facility: [facility] Address: [address] [place] [address] Performed By: #### 2 4323-8, 3016-3 #### [facility] CLIA [id number] [address] [place] [address] [place] Anion gap [Moles/Vol] 11 mmol/L Normal 8-15 [facility] Comment on above: Order Comment: Speci men Type: BLOOD SPECIMEN Ordering Facility: [facility] Address: [address] [place], [place] [id number] Performed By: #### 2 4323-8, 3016-3 #### [facility] CLIA [id number] [address] [place], [place] [address] [place] AST [Catalytic activity/Vol] 25 U/L Normal 14-40 [facility] Comment on above: Order Comment: Speci men Type: BLOOD SPECIMEN Ordering Facility: [facility] Address: [address] [place] [address] Performed By: #### 2 4323-8, 3016-3 #### [facility] CLIA [id number] [address] [place] [address] [place] Bilirubin [Mass/Vol] 0.4 mg/dL Normal 0.2-1.3 [facility] Comment on above: Order Comment: Speci men Type: BLOOD SPECIMEN Ordering Facility: [facility] Address: [address] [place] [address] Performed By: #### 2 4323-8, 6-3 #### [facility] CLIA [id number] [address] [place] [address] [place] Calcium [Mass/Vol] 9.3 mg/dL Normal 8.5-10.2 [facility] Comment on above: Order Comment: Speci men Type: BLOOD SPECIMEN Ordering Facility: [facility] Address: [address] [place] [address] Performed By: #### 2 4323-8, 3016-3 #### [facility] CLIA [id number] [address] [place] [address] [place] Chloride [Moles/Vol] 104 mmol/L Normal 98-107 [facility] Comment on above: Order Comment: Speci men Type: BLOOD SPECIMEN Ordering Facility: [facility] Address: [address] [place] [address] Performed By: #### 2 4323-8, 3016-3 #### [facility] CLIA [id number] [address] [place] [address] [place] CO2 [Moles/Vol] 28 mmol/L Normal 22-30 [facility] Comment on above: Order Comment: Speci men Type: BLOOD SPECIMEN Ordering Facility: [facility] Address: [address] [place] [address] Performed By: #### 2 4323-8, 6-3 #### [facility] CLIA [id number] [address] [place] [address] [place] Creatinine [Mass/Vol] 1.05 mg/dL Normal 0.73-1.22 [facility] Comment on above: Order Comment: Speci men Type: BLOOD SPECIMEN Ordering Facility: [facility] Address: [address] [place] [address] Performed By: #### 2 4323-8, 3 #### [facility] CLIA [id number] [address] [place] [address] [place] Creatinine and Glomerular filtration rate.predicted panel (S/P/Bld) 69 mL/min/1.73m??? Normal >=60 [facility] Comment on above: Order Comment: Speci men Type: BLOOD SPECIMEN Ordering Facility: [facility] Address: [address] [place] [address] Result Comment: Linda mated Glomerular Filtration Rate [...] Performed By: #### 2 4323-8, 3015-3 #### [facility] CLIA [id number] [address] [place] [address] [place] Glucose [Mass/Vol] 101 mg/dL High 74-99 [facility] Comment on above: Order Comment: Speci men Type: BLOOD SPECIMEN Ordering Facility: [facility] Address: [address] [place] [address] Result Comment: The [place] Diabetes Association (ADA) provides guidance for cutoff [...] Standards of Medical Care in Diabetes 2016, [place] [employer]. Diabetes Care. 2016.39(Suppl 1). Performed By: #### 2 4323-8, 3016-3 #### [facility] CLIA [id number] [address] [place] [address] [place] Potassium [Moles/Vol] 3.6 mmol/L Low 3.7-5.1 [facility] Comment on above: Order Comment: Speci men Type: BLOOD SPECIMEN Ordering Facility: [facility] Address: [address] [place] [address] Performed By: #### 2 4323-8, 3016-3 #### [facility] CLIA [id number] [address] [place] [address] [place] Protein [Mass/Vol] 7.2 g/dL Normal 6.3-8.0 [facility] Comment on above: Order Comment: Speci men Type: BLOOD SPECIMEN Ordering Facility: [facility] Address: [address] [place] [address] Performed By: #### 2 4323-8, 3016-3 #### [facility] CLIA [id number] [address] [place] [address] [place] Sodium [Moles/Vol] 143 mmol/L Normal 136-144 [facility] Comment on above: Order Comment: Speci men Type: BLOOD SPECIMEN Ordering Facility: [facility] Address: [address] [place] [address] Performed By: #### 2 4323-8, 3016-3 #### [facility] CLIA [id number] [address] [place] [address] [place] Urea nitrogen [Mass/Vol] 24 mg/dL Normal 9-24 [facility] Comment on above: Order Comment: Speci men Type: BLOOD SPECIMEN Ordering Facility: [facility] Address: [address] [place] [address] Performed By: #### 2 4323-8, 3016-3 #### [facility] CLIA [id number] [address] [place] [address] [place] TSH SerPl-aCncon 04-02-2024 TSH Qn 0.277 m[IU]/L Normal 0.270-4.200 [facility] Comment on above: Order Comment: Speci men Type: BLOOD SPECIMEN Ordering Facility: [facility] Address: [address] [place] [address] Performed By: #### 2 4323-8, 3016-3 #### [facility] CLIA [id number] [address] [place] [address] [place] Basophil percentageOrdered B y: Shantel Shepard on 09-01-2023 Chloride [Moles/Vol] 106 mmol/L 98-107 [facility] Glucose [Mass/Vol] 82 mg/dL 74-106 [facility] Potassium [Moles/Vol] 3.7 mmol/L 3.5-5.1 [facility] Sodium [Moles/Vol] 141 mmol/L 136-145 [facility] Laboratory - Chemistry and C hemistry - challengeOrdered By: Shantel Shepard on 09-01-2023 CO2 [Moles/Vol] 29.0 mmol/L 21.0-32.0 [facility] Natriuretic peptide B (Bld) [Mass/Vol] 253.5 pg/mL 0-100 [facility] Urea nitrogen/Creatinine [Mass ratio] 19.4 mg/mg 10-20 [facility] No Panel InformationOrdered By: Shantel Sheprad on 09-01-2023 Estimated GFR (MDRD) Amer 83 mL/min >60 [facility] Comment on above: GFR Calc Estimated GFR (MDRD) Non-Af Amer 69 mL/min >60 [facility] Comment on above: Non- GFR Calc Serum or plasma calcium madisyn urement (mass/volume)Ordered By: Shantel Shepard on 09-01-2023 Calcium [Mass/Vol] 9.2 mg/dL 8.5-10.1 [facility] Serum or plasma creatinine m easurement (mass/volume)Ordered By: Shantel Shepard on 09-01-2023 Creatinine [Mass/Vol] 1.08 mg/dL 0.70-1.30 [facility] Comment on above: The validity of the calculated GFR & GFRAA in patients over 70 years has not been determined. Clinical correlation is essential. Serum or plasma urea nitroge n measurement (mass/volume)Ordered By: Shantel Shepard on 09-01-2023 Urea nitrogen [Mass/Vol] 21 mg/dL 7-18 [facility] Thin prep Papanicolaou smear with manual screeningOrdered By: Shantel Shepard on 09-01-2023 Thin prep Papanicolaou smear with manual screening 6 -15 [facility] Office Visiton 12-12-2016 Documentation of current medications (procedure) Done Invalid Interpretation Code [employer] Work Phone: Fall risk assessment No [facility] [employer] Work Phone: [phone] Protein mass conc Done [facility] Work Phone: Tobacco smoking status NHIS Never smoker [facility] Work Phone: Tobacco use CPHS Never smoker Invalid Interpretation Code [employer] Work Phone: Office Visit: [facility] 06-05-19 17 Documentation of current medications (procedure) Done Invalid Interpretation Code [facility] [employer] Work Phone: Clinical 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 Left ventricular Ejection fraction 65 % [employer] Work Phone: Clinical Lists 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 02-08-2016 Cholesterol in HDL mass conc 44 mg/dL Low [facility] Work Phone: [phone] Cholesterol in LDL mass conc 137 mg/dL High [facility] Work Phone: [phone] Cholesterol in LDL/Cholesterol in HDL mass ratio 3.11 [facility] Work Phone: Cholesterol mass conc 196 mg/dL [facility] Work Phone: Cholesterol.total/Sandra sterol in HDL mass ratio 4.45 {ratio} [facility] Work Phone: [phone] Lipoprotein.pre-beta mass conc 15 mg/dL [facility] Work Phone: [phone] Triglyceride mass conc 74 mg/dL [facility] Work Phone: [phone] Office Visiton 12-07-2015 Tobacco use CPHS Never smoker Invalid Interpretation Code [facility] [employer] Work Phone: [phone] Lab Report: Erythrocyte Sed Rateon 07-14-2015 Erythrocyte sedimentation rate 25 mm/h High 0-20 [facility] Work Phone: [phone] Replaced Document: (P) CBC W /Diff, Automatedon 07-14-2015 Basophils/100 leukocytes 0.4 % Invalid Interpretation Code 0-1 [facility] Work Phone: Basophils/100 WBC (Bld) 0.4 % 0-1 [facility] [employer] Work Phone: Eosinophils/100 leukocytes 3.5 % Invalid Interpretation Code 0-5 [facility] Work Phone: Eosinophils/100 WBC (Bld) 3.5 % 0-5 [facility] Work Phone: [phone] Erythrocyte distribution width Ratio (RBC) 46.1 fL High 35.1-43.9 [facility] Work Phone: Erythrocyte distribution width Ratio (RBC) 13.3 % 11.6-14.6 [facility] Work Phone: [phone] Erythrocytes (RBC) 4.74 10*6/uL Invalid Interpretation Code 4.6-6.2 [facility] [employer] [facility] Work Phone: Hematocrit (HCT) 44.7 % Invalid Interpretation Code 40-54 [facility] Work Phone: Hematocrit Volume Fraction (Bld) 44.7 % 40-54 [facility] Work Phone: Hemoglobin (HGB) 14.7 g/dL 13.0-16.5 [facility] Work Phone: Immature granulocytes #/vol (Bld) 0.400 % 0.0-0.9 [facility] Work Phone: immature granulocytes, percentage of total cells, blood 0.400 % Invalid Interpretation Code 0.0-0.9 [facility] Work Phone: Lymphocytes 1.67 X10 3/UL Invalid Interpretation Code 0.83-4.51 [facility] Work Phone: Lymphocytes #/vol (Bld) 1.67 X10 3/UL 0.83-4.51 [facility] Work Phone: Lymphocytes/100 leukocytes 30.7 [...] 3.1 X10 3/UL Invalid Interpretation Code 2.0-7.7 [employer] Work Phone: Neutrophils #/vol (Bld) 3.1 X10 3/UL 2.0-7.7 [employer] Work Phone: Neutrophils/100 leukocytes 57.6 % Invalid Interpretation Code 47-70 [employer] Work Phone: Neutrophils/100 WBC (Bld) 57.6 % 47-70 [employer] Work Phone: [phone] Platelet mean volume Entitic volume (Bld) 9.6 fL 6.2-12.0 [employer] Work Phone: Platelets 188 10*3/mm3 Invalid Interpretation Code 150-450 [employer] Work Phone: Platelets #/vol (Bld) 188 10*3/mm3 150-450 [facility] [employer] Work Phone: [phone] PMV by William 9.6 fL Invalid Interpretation Code 6.2-12.0 [employer] Work Phone: [phone] RBC #/vol (Bld) 4.74 10*6/uL 4.6-6.2 [employer] Work Phone: [phone] RDW-CA 13.3 % Invalid Interpretation Code 11.6-14.6 [employer] Work Phone: [phone] red blood cell distribution width, size density 46.1 fL High 35.1-43.9 [employer] Work Phone: WBC #/vol (Bld) 5.4 10*3/uL 4.4-11.0 [employer] Work Phone: [phone] WBC (Leukocytes) 5.4 10*3/uL Invalid Interpretation Code 4.4-11.0 [employer] Work Phone: [phone] Office Visit: [facility] 07-13-19 16 General cardiovascular disease 10Y risk [#] Darwin.D'Agostino 18 % [employer] Work Phone: [phone] Replaced Document: Newton Euceda 07-13-2015 EKG QRS axis -36 deg [employer] Work Phone: [phone] electrocardiogram interpretation Sinus Rhythm -Left axis. Low voltage with rightward P-axis and rotation -possible pulmonary disease. ABNORMAL Invalid Interpretation Code [employer] Work Phone: [phone] GE use only - for [employer] import when terms are not otherwise specified 417 ms Invalid Interpretation Code [employer] Work Phone: [phone] Interpretation Sinus Rhythm -Left a xis. Low voltage with rightward P-axis and rotation -possible pulmonary disease. ABNORMAL [employer] Work Phone: [phone] P [place] 63 deg [employer] Work Phone: P wave axis, electrocardiogram 63 deg Invalid Interpretation Code [employer] Work Phone: IL Interval 158 ms [employer] Work Phone: IL interval, electrocardiogram 158 ms Invalid Interpretation Code [employer] Work Phone: Pulse (Heart Rate) 80 /min Invalid Interpretation Code [employer] Work Phone: QRS axis, electrocardiogram -36 deg Invalid Interpretation Code [employer] Work Phone: [phone] QRS Duration 92 ms [employer] Work Phone: QRS duration, electrocardiogram 92 ms Invalid Interpretation Code [employer] Work Phone: QT Interval new path ms [employer] Work Phone: [phone] QT interval, electrocardiogram new path ms Invalid Interpretation Code [employer] Work Phone: [phone] QTc Howard 417 ms [employer] Work Phone: [phone] T [place] 43 deg [employer] Work Phone: T wave axis, electrocardiogram 43 deg Invalid Interpretation Code [employer] Work Phone: Clinical 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 Alanine aminotransferase (ALT) 17 U/L [employer] Work Phone: Albumin 3.9 g/dL [employer] Work Phone: [phone] Alkaline phosphatase (ALP) 54 U/L Invalid Interpretation Code [employer] Work Phone: [phone] ALP enzyme act/vol (Bld) 54 U/L [employer] Work Phone: [phone] Anion gap 10 mmol/L Invalid Interpretation Code [employer] Work Phone: [phone] Anion gap molar conc 10 mmol/L [employer] Work Phone: [phone] Aspartate aminotransferase (AST) 23 U/L [employer] Work Phone: [phone] Bilirubin (total) 0.4 mg/dL [employer] Work Phone: [phone] Calcium 8.9 mg/dL [employer] Work Phone: [phone] Chloride 102 mmol/L [employer] Work Phone: [phone] Cholesterol 186 mg/dL [employer] Work Phone: [phone] Cholesterol to HDL Ratio 4.33 {ratio} [employer] Work Phone: [phone] CO2 29 mmol/L Invalid Interpretation Code [employer] Work Phone: [phone] CO2 ppres (BldV) 29 mmol/L [employer] Work Phone: [phone] Creatinine 0.93 mg/dL [employer] Work Phone: [phone] Glucose 84 mg/dL Invalid Interpretation Code [employer] Work Phone: [phone] Glucose mass conc 84 mg/dL [employer] Work Phone: [phone] HDL Cholesterol 43 mg/dL Low [employer] Work Phone: [phone] LDL Cholesterol 127 mg/dL [employer] Work Phone: [phone] LDL/HDL ratio, serum 2.95 [employer] Work Phone: [phone] Potassium 4.0 mmol/L [employer] Work Phone: [phone] Protein 7.1 g/dL [employer] Work Phone: [phone] Sodium 141 mmol/L [employer] Work Phone: [phone] Thyroid stimulating hormone (TSH) 1.170 u[iU]/mL [facility] Work Phone: [phone] Triglyceride 81 mg/dL [facility] Work Phone: [phone] Urea nitrogen 18 mg/dL [facility] Work Phone: [phone] very low density lipoproteins 16 mg/dL [facility] Work Phone: [phone] Office Visit: [facility] 05-31-19 15 cardiac risk group [facility] Work Phone: [phone] Tobacco smoking status NHIS Never [facility] Work Phone: [phone] Lab Report: Prothrombin Time w/INRon 05-11-2014 Coagulation tissue factor induced in platelet poor plasma 23.3 s Critically high 11.7-14.9 [facility] Work Phone: [phone] Office Visit: Warfarin Calco n 05-11-2014 Coagulation tissue factor induced in platelet poor plasma 23.3 s [facility] Work Phone: [phone] INR Coag RelTime (PPP) 2.1 {INR} [facility] Work Phone: [phone] INR in blood by coagulation Hospital lab [facility] Work Phone: [phone] INR in blood by coagulation 2.1 {INR} Invalid Interpretation Code [facility] Work Phone: [phone] INR in blood by coagulation 2 to 3 Invalid Interpretation Code [facility] Work Phone: [phone] international normalized ratio (INR) range 2 to 3 [facility] Work Phone: [phone] Lab Report: BMPon 09-06-2013 BUN/Creatinine Ratio 18.2 RATIO Normal 10-[address] [facility] Work Phone: [phone] Lab Report: CBCDon 4 Absolute Neutrophil count 5.3 X10 3/UL Normal 2.0-7.7 [facility] Work Phone: [phone] ANC 5.3 X10 3/UL Normal 2.0-7.7 [facility] Work Phone: [phone] Office Visiton 08-27-2013 BNP 414.0 pg/mL [facility] Work Phone: Vital Signs Date Time Vital Sign Value Performing Clinician Chichi arriaza 12-09-2024 08:33-0400 Body mass index (BMI) [Ratio] 23.1 kg/m2 Dr. Jesus Taylor MD Work Phone: [facility] 12-09-2024 08:33-0400 Body weight 67.[address] Jesus Taylor MD Work Phone: [facility] 12-09-2024 08:33-0400 Diastolic blood pressure 75 mm[Hg] Dr. Jesus Taylor MD Work Phone: [facility] 12-09-2024 08:33-0400 Heart rate 74 /min Dr. Jesus Taylor MD Work Phone: [facility] 12-09-2024 08:33-0400 Respiratory rate 16 /min Dr. Jesus Taylor MD Work Phone: [facility] 12-09-2024 08:33-0400 Systolic blood pressure 129 mm[Hg] Dr. Jesus Taylor MD Work Phone: [facility] 11-01-2024 11:22-0400 Diastolic blood pressure 72 mm[Hg] Fritz Pope MD Work Phone: [facility] 11-01-2024 11:22-0400 Heart rate 76 /min Fritz Pope MD Work Phone: [facility] 11-01-2024 11:22-0400 Respiratory rate 16 /min Fritz Pope MD Work Phone: [facility] 11-01-2024 11:22-0400 SaO2% (BldA) [Mass fraction] 96 % Fritz Pope MD Work Phone: [facility] 11-01-2024 11:22-0400 Systolic blood pressure 159 mm[Hg] Fritz Pope MD Work Phone: [facility] 11-01-2024 10:08-0400 Body mass index (BMI) [Ratio] 24.13 kg/m2 Fritz Pope MD Work Phone: [facility] 11-01-2024 10:08-0400 Body temperature 97.2 [degF] Fritz Pope MD Work Phone: [facility] 11-01-2024 10:08-0400 Body weight 67.8 kg Fritz Pope MD Work Phone: [facility] 10-05-2024 10:41-0400 Body mass index (BMI) [Ratio] 24.11 kg/m2 Pennie Saroj HOCKEY INSTRUCTOR.HANSARD REPORTER Work Phone: [facility] 10-05-2024 10:41-0400 Body weight 67.77 kg Pennie Saroj HOCKEY INSTRUCTOR.HANSARD REPORTER Work Phone: [facility] 10-05-2024 10:41-0400 Diastolic blood pressure 71 mm[Hg] Pennie Saroj HOCKEY INSTRUCTOR.HANSARD REPORTER Work Phone: [facility] 10-05-2024 10:41-0400 Heart rate 75 /min Pennie Saroj HOCKEY INSTRUCTOR.HANSARD REPORTER Work Phone: [facility] 10-05-2024 10:41-0400 Respiratory rate 16 /min Pennie Saroj HOCKEY INSTRUCTOR.HANSARD REPORTER Work Phone: [facility] 10-05-2024 10:41-0400 SaO2% (BldA) [Mass fraction] 98 % Pennie Saroj HOCKEY INSTRUCTOR.HANSARD REPORTER Work Phone: [facility] 10-05-2024 10:41-0400 Systolic blood pressure 154 mm[Hg] Pennie Saroj HOCKEY INSTRUCTOR.HANSARD REPORTER Work Phone: [facility] 10-05-2024 09:01-0400 Body mass index (BMI) [Ratio] 23.84 kg/m2 Jesus Taylor MD Work Phone: [facility] 10-05-2024 09:01-0400 Body weight 67 kg Jesus Taylor MD Work Phone: [facility] 10-05-2024 09:01-0400 Diastolic blood pressure 68 mm[Hg] Jesus Taylor MD Work Phone: [facility] 10-05-2024 09:01-0400 Heart rate 72 /min Jesus Taylor MD Work Phone: [facility] 10-05-2024 09:01-0400 Respiratory rate 18 /min Jesus Taylor MD Work Phone: [facility] 10-05-2024 09:01-0400 Systolic blood pressure 118 mm[Hg] Jesus Taylor MD Work Phone: [facility] 07-21-2024 09:02-0500 Body height 167.6 cm Winifred Vallejo MD Work Phone: [facility] 07-21-2024 09:02-0500 Body mass index (BMI) [Ratio] 23.08 kg/m2 Winifred Vallejo MD Work Phone: [facility] 07-21-2024 09:02-0500 Body weight 64.86 kg Winifred Vallejo MD Work Phone: [facility] 07-21-2024 09:02-0500 Diastolic blood pressure 62 mm[Hg] Winifred Vallejo MD Work Phone: [facility] 07-21-2024 09:02-0500 Heart rate 84 /min Winifred Vallejo MD Work Phone: [facility] 07-21-2024 09:02-0500 SaO2% (BldA) [Mass fraction] 98 % Winifred Vallejo MD Work Phone: [facility] 07-21-2024 09:02-0500 Systolic blood pressure 112 mm[Hg] Winifred Vallejo MD Work Phone: [facility] 07-08-2024 09:41-0500 Body mass index (BMI) [Ratio] 23.77 kg/m2 Codie Mann APRN.CNP Work Phone: [facility] 07-08-2024 09:41-0500 Body weight 66.8 kg Codie Tannhof HOCKEY INSTRUCTOR.HANSARD REPORTER Work Phone: [facility] 07-08-2024 09:41-0500 Diastolic blood pressure 60 mm[Hg] Codie Solimanhof HOCKEY INSTRUCTOR.HANSARD REPORTER Work Phone: [facility] 07-08-2024 09:41-0500 Heart rate 74 /min Codie Solimanhof HOCKEY INSTRUCTOR.HANSARD REPORTER Work Phone: [facility] 07-08-2024 09:41-0500 Respiratory rate 16 /min Codie Solimanhof HOCKEY INSTRUCTOR.HANSARD REPORTER Work Phone: [facility] 07-08-2024 09:41-0500 SaO2% (BldA) [Mass fraction] 98 % Codie Solimanhof HOCKEY INSTRUCTOR.HANSARD REPORTER Work Phone: [facility] 07-08-2024 09:41-0500 Systolic blood pressure 110 mm[Hg] Codie Solimanhof HOCKEY INSTRUCTOR.HANSARD REPORTER Work Phone: [facility] 06-18-2024 08:34-0500 Body mass index (BMI) [Ratio] 23.77 kg/m2 Jesus Taylor MD Work Phone: [facility] 06-18-2024 08:34-0500 Body weight 66.8 kg Jesus Taylor MD Work Phone: [facility] 06-18-2024 08:34-0500 Diastolic blood pressure 60 mm[Hg] Jesus Tyalor MD Work Phone: [facility] 06-18-2024 08:34-0500 Heart rate 74 /min Jesus Taylor MD Work Phone: [facility] 06-18-2024 08:34-0500 Respiratory rate 16 /min Jesus Taylor MD Work Phone: [facility] 06-18-2024 08:34-0500 SaO2% (BldA) [Mass fraction] 96 % Jesus Taylor MD Work Phone: [facility] 06-18-2024 08:34-0500 Systolic blood pressure 126 mm[Hg] Jesus Taylor MD Work Phone: [facility] 04-06-2024 08:06-0500 Body mass index (BMI) [Ratio] 22.92 kg/m2 Jesus Taylor MD Work Phone: [facility] 04-06-2024 08:06-0500 Body weight 64.4 kg Jesus Taylor MD Work Phone: [facility] 04-06-2024 08:06-0500 Diastolic blood pressure 68 mm[Hg] Jseus Taylor MD Work Phone: [facility] 04-06-2024 08:06-0500 Heart rate 76 /min Jesus Taylor MD Work Phone: [facility] 04-06-2024 08:06-0500 Respiratory rate 18 /min Jesus Taylor MD Work Phone: [facility] 04-06-2024 08:06-0500 Systolic blood pressure 124 mm[Hg] Jseus Taylor MD Work Phone: [facility] 02-24-2024 13:29-0400 Body height 167.6 cm Lalita Perkins HOCKEY INSTRUCTOR.HANSARD REPORTER Work Phone: [facility] 02-24-2024 13:29-0400 Body mass index (BMI) [Ratio] 22.27 kg/m2 Lalita Perkins HOCKEY INSTRUCTOR.HANSARD REPORTER Work Phone: [facility] 02-24-2024 13:29-0400 Body weight 62.6 kg Laliat Perkins HOCKEY INSTRUCTOR.HANSARD REPORTER Work Phone: [facility] 02-24-2024 13:29-0400 Diastolic blood pressure 63 mm[Hg] Lalita Perkins HOCKEY INSTRUCTOR.HANSARD REPORTER Work Phone: [facility] 02-24-2024 13:29-0400 Heart rate 71 /min Lalita Perkins HOCKEY INSTRUCTOR.HANSARD REPORTER Work Phone: [facility] 02-24-2024 13:29-0400 Respiratory rate 16 /min Lalita Perkins HOCKEY INSTRUCTOR.HANSARD REPORTER Work Phone: [facility] 02-24-2024 13:29-0400 SaO2% (BldA) [Mass fraction] 99 % Lalita Perkins HOCKEY INSTRUCTOR.HANSARD REPORTER Work Phone: [facility] 02-24-2024 13:29-0400 Systolic blood pressure 113 mm[Hg] Lalita Perkins HOCKEY INSTRUCTOR.HANSARD REPORTER Work Phone: [facility] 01-30-2024 14:24-0400 Body mass index (BMI) [Ratio] 22.44 kg/m2 Jesus Taylor MD Work Phone: [facility] 01-30-2024 14:24-0400 Body weight 65 kg Jesus Taylor MD Work Phone: [facility] 01-30-2024 14:24-0400 Diastolic blood pressure 62 mm[Hg] Jesus Taylor MD Work Phone: [facility] 01-30-2024 14:24-0400 Heart rate 74 /min Jesus Taylor MD Work Phone: [facility] 01-30-2024 14:24-0400 Respiratory rate 16 /min Jesus Taylor MD Work Phone: [facility] 01-30-2024 14:24-0400 SaO2% (BldA) [Mass fraction] 95 % Jesus Taylor MD Work Phone: [facility] 01-30-2024 14:24-0400 Systolic blood pressure 104 mm[Hg] Jesus Taylor MD Work Phone: [facility] 01-12-2024 08:40-0400 Diastolic blood pressure 77 mm[Hg] Ip Echo [facility] 01-12-2024 08:40-0400 Heart rate 89 /min Ip [facility] 01-12-2024 08:40-0400 SaO2% (BldA) [Mass fraction] 96 % Ip [facility] 01-12-2024 08:40-0400 Systolic blood pressure 115 mm[Hg] Ip [facility] 01-12-2024 08:12-0400 Respiratory rate 16 /min Ip Echo [facility] 01-12-2024 07:39-0400 Body temperature 97.5 [degF] Ip Echo [facility] 01-05-2024 19:13-0400 Body mass index (BMI) [Ratio] 24.1 kg/m2 Jesus Taylor MD Work Phone: [facility] 01-05-2024 19:13-0400 Body weight 65.6 kg Jesus Taylor MD Work Phone: [facility] 01-05-2024 19:13-0400 Diastolic blood pressure 62 mm[Hg] Jesus Taylor MD Work Phone: [facility] 01-05-2024 19:13-0400 Heart rate 80 /min Jesus Taylor MD Work Phone: [facility] 01-05-2024 19:13-0400 Respiratory rate 18 /min Jesus Taylor MD Work Phone: [facility] 01-05-2024 19:13-0400 SaO2% (BldA) [Mass fraction] 95 % Jesus Taylor MD Work Phone: [facility] 01-05-2024 19:13-0400 Systolic blood pressure 104 mm[Hg] Jesus Taylor MD Work Phone: [facility] 10-03-2023 08:54-0400 Body mass index (BMI) [Ratio] 24.69 kg/m2 Jesus Taylor MD Work Phone: [facility] 10-03-2023 08:54-0400 Body weight 67.22 kg Jesus Taylor MD Work Phone: [facility] 10-03-2023 08:54-0400 Diastolic blood pressure 72 mm[Hg] Jesus Taylor MD Work Phone: [facility] 10-03-2023 08:54-0400 Heart rate 64 /min Jesus Taylor MD Work Phone: [facility] 10-03-2023 08:54-0400 Respiratory rate 16 /min Jesus Taylor MD Work Phone: [facility] 10-03-2023 08:54-0400 Systolic blood pressure 118 mm[Hg] Jesus Taylor MD Work Phone: [facility] 09-01-2023 08:21-0400 Body height 167.[address] Jesus Taylor Work Phone: [facility] 09-01-2023 08:21-0400 Body mass index (BMI) [Ratio] 24.3 kg/m2 Dr. Jesus Taylor Work Phone: [facility] 09-01-2023 08:21-0400 Body weight 68.[address] Jesus Taylor Work Phone: [facility] 09-01-2023 08:21-0400 Diastolic blood pressure 62 mm[Hg] Dr. Jesus Taylor Work Phone: [facility] 09-01-2023 08:21-0400 Heart rate 81 /min Dr. Jesus Taylor Work Phone: [facility] 09-01-2023 08:21-0400 Respiratory rate 18 /min Dr. Jesus Taylor Work Phone: [facility] 09-01-2023 08:21-0400 SaO2% (BldA) [Mass fraction] 97 % Dr. Jesus Taylor Work Phone: [facility] 09-01-2023 08:21-0400 Systolic blood pressure 110 mm[Hg] Dr. Jesus Taylor Work Phone: [facility] 04-29-2023 09:48-0500 Body weight 67.04 kg Jesus Taylor MD Work Phone: [facility] 04-29-2023 09:48-0500 Diastolic blood pressure 68 mm[Hg] Jesus Taylor MD Work Phone: [facility] 04-29-2023 09:48-0500 Heart rate 64 /min Jesus Taylor MD Work Phone: [facility] 04-29-2023 09:48-0500 Respiratory rate 16 /min Jesus Talyor MD Work Phone: [facility] 04-29-2023 09:48-0500 Systolic blood pressure 110 mm[Hg] Jesus Taylor MD Work Phone: [facility] 10-03-2022 08:05-0400 Body weight 66.95 kg Jesus Taylor MD Work Phone: [facility] 10-03-2022 08:05-0400 Diastolic blood pressure 62 mm[Hg] Jesus Taylor MD Work Phone: [facility] 10-03-2022 08:05-0400 Heart rate 60 /min Jesus Taylor MD Work Phone: [facility] 10-03-2022 08:05-0400 Respiratory rate 16 /min Jesus Taylor MD Work Phone: [facility] 10-03-2022 08:05-0400 Systolic blood pressure 108 mm[Hg] Jesus Taylor MD Work Phone: [facility] 04-01-2022 09:04-0500 Body weight 68.49 kg Jesus Taylor MD Work Phone: [facility] 04-01-2022 09:04-0500 Diastolic blood pressure 70 mm[Hg] Jesus Taylor MD Work Phone: [facility] 04-01-2022 09:04-0500 Heart rate 78 /min Jesus Taylor MD Work Phone: [facility] 04-01-2022 09:04-0500 Respiratory rate 16 /min Jesus Taylor MD Work Phone: [facility] 04-01-2022 09:04-0500 Systolic blood pressure 116 mm[Hg] Jesus Taylor MD Work Phone: [facility] 09-28-2021 09:21-0400 Body weight 67.41 kg Jesus Taylor MD Work Phone: [facility] 09-28-2021 09:21-0400 Diastolic blood pressure 70 mm[Hg] Jesus Taylor MD Work Phone: [facility] 09-28-2021 09:21-0400 Heart rate 80 /min Jesus Taylor MD Work Phone: [facility] 09-28-2021 09:21-0400 Respiratory rate 16 /min Jesus Taylor MD Work Phone: [facility] 09-28-2021 09:21-0400 Systolic blood pressure 110 mm[Hg] Jesus Taylor MD Work Phone: [facility] 12-12-2016 13:03-0400 BMI (Body Mass Index) 24.53 kg/m2 [facility] Work Phone: 12-12-2016 13:03-0400 BP Diastolic 62 mm[Hg] Hermelindotaldanette Mays [facility] Work Phone: 12-12-2016 13:03-0400 BP Systolic 118 mm[Hg] Hermelindotaldanette M[facility] Work Phone: 12-12-2016 13:03-0400 Height 167.64 cm [place] Mays [facility] Work Phone: 12-12-2016 13:03-0400 Pulse (Heart Rate) 76 /min [place] Mays [facility] Work Phone: 12-12-2016 13:03-0400 Respiratory Rate 16 /min Hermelindotaldanette Mays [facility] Work Phone: 12-12-2016 13:03-0400 Weight 68.95 kg [place] Mays [facility] Work Phone: 06-05-2016 11:30-0500 BMI (Body Mass Index) 24.69 kg/m2 [facility] Work Phone: 06-05-2016 11:30-0500 BP Diastolic 60 mm[Hg] Harumi DeFinis [facility] Work Phone: 06-05-2016 11:30-0500 BP Systolic 110 mm[Hg] Harumi DeFinis [facility] Work Phone: 06-05-2016 11:30-0500 BSA (Body Surface Area) 1.79 m2 Harumi DeFinis [facility] Work Phone: 06-05-2016 11:30-0500 Pulse (Heart Rate) 74 /min [facility] Work Phone: 06-05-2016 11:30-0500 Weight 69.4 kg Caesar Hurt [facility] Work Phone: 12-07-2015 13:03-0400 Respiratory Rate 12 /min Caesar Hurt [facility] Work Phone: 07-13-2015 08:19-0500 Heart rate 80 /min [place] Work Phone: 09-02-2013 14:27-0400 Body Temperature 98.1 [degF] [facility] Work Phone: 09-02-2013 14:27-0400 Height 167.64 cm Caesar Hurt [facility] Work Phone: Encounters Encounter Date Encounter Type Care Provider Facility Start: 03-22-2025 End: 03-22-2025 ambulatory [facility] Facility:[facility] Start: 03-17-2025 End: 03-17-2025 ambulatory [facility] Facility:[facility] Start: 03-08-2025 End: 03-08-[address] Schuyler Angel MD -[facility] Work Phone: Start: 03-08-2025 End: 03-08-2025 ambulatory [facility] Facility:[facility] Start: 02-07-2025 End: 02-07-[address] Jesus Taylor MD Work Phone: [facility] Start: 02-07-2025 End: 02-07-[address] Schuyler Angel MD -[facility] Work Phone: Start: 12-09-2024 End: 12-09-2024 Patient encounter procedure Shantel FENTON -[facility] Work Phone: Start: 12-09-2024 End: 12-09-[address] Jesus Taylor MD Work Phone: [facility] Start: 11-12-2024 End: 11-12-[address] Jesus Taylor MD Work Phone: [facility] Work Phone: Start: 11-12-2024 End: 11-12-2024 Patient encounter procedure Irene [facility] [place] Work Phone: Start: 11-12-2024 End: 11-12-2024 ambulatory [facility] Facility:[facility] Start: 11-09-2024 End: 11-09-[address] Jesus Taylor MD Work Phone: [facility] Start: 11-09-2024 End: 11-09-[address] Schuyler Angel MD -[facility] Work Phone: Start: 11-08-2024 End: 11-08-2024 Patient encounter procedure Pennie Ruelas APRN.HANSARD REPORTER Work Phone: General Surgery Comment on above: Multiple adenomatous polyps (Primary Dx) Start: 11-08-2024 End: 11-08-2024 ambulatory [facility] Facility:[facility] Start: 11-01-2024 End: 01-01-2025 Follow-up encounter Pennie Ruelas APRN.HANSARD REPORTER Work Phone: General Surgery Start: 11-01-2024 ambulatory FRITZ Gamble ty:[facility] Start: 11-01-2024 End: 11-01-2024 Subsequent hospital visit by physician Fritz Pope MD Work Phone: Ambulatory Surgery Comment on above: Screening for colon cancer [Z12.11] Start: 10-05-2024 End: 10-05-2024 ambulatory [facility] Facility:[facility] Start: 10-05-2024 End: 10-05-2024 Patient encounter procedure Pennie Ruelas APRN.HANSARD REPORTER Work Phone: General Surgery Comment on above: Family history of co amalia cancer in father (Primary Dx); Screening for colon cancer; History of colonic polyps Start: 10-05-2024 End: 10-05-2024 Office outpatient visit 25 minutes Jesus Taylor MD [facility] Comment on above: Acquired hypothyroid ism (Primary Dx); Drug-induced osteoporosis; Hypertensive heart disease with heart failure (HCC); Complete heart block (HCC); H/O mitral valve replacement; Pacemaker; Screening for depression; Encounter for screening examination for other mental health and behavioral disorders; Screening for colon cancer Start: 10-05-2024 End: 10-05-2024 ambulatory [facility] Facility:[facility] Start: 10-01-2024 End: 10-01-2024 ambulatory [facility] Facility:[facility] Start: 08-30-2024 End: 08-30-2024 Telephone encounter Codie Mann APRN.HANSARD REPORTER Work Phone: [facility] Comment on above: Consult Start: 08-10-2024 End: 08-10-2024 ambulatory Schuyler Angel Facility:[facility] Start: 08-10-2024 End: 08-10-[address] Schuyler Angel MD -[facility] Work Phone: Start: 08-04-2024 End: 08-04-2024 Refill Jesus Taylor MD Work Phone: [address] [place] [address] Comment on above: Refill Request Start: 07-21-2024 End: 07-21-2024 Patient encounter procedure Winifred Vallejo MD Work Phone: Cardiology Comment on above: S/P MVR (mitral valv e replacement) (Primary Dx); CHB (complete heart block) (HCC) Start: 07-21-2024 End: 07-21-2024 ambulatory WINIFRED VALLEJO Facility:[facility] Start: 07-08-2024 End: 07-08-2024 Office outpatient visit 25 minutes Codie Mann APRN.HANSARD REPORTER Work Phone: [facility] Comment on above: Contact dermatitis, unspecified contact dermatitis type, unspecified trigger (Primary Dx); Follicular eczema; Cellulitis of skin Start: 07-08-2024 End: 07-08-2024 ambulatory JESUS Khan [facility] Facility:[facility] Start: 06-18-2024 End: 06-18-2024 ambulatory [facility] Facility:[facility] Start: 06-18-2024 End: 06-18-2024 Patient encounter procedure Jesus Taylor MD Work Phone: [facility] Comment on above: Cellulitis of skin ( Primary Dx); Hypertensive heart disease with heart failure (HCC); Complete heart block (HCC) Start: 06-08-2024 End: 06-08-2024 ambulatory [facility] Facility:[facility] Start: 05-27-2024 ambulatory [facility] Start: 05-27-2024 End: 05-27-2024 ambulatory Shantel FENTON Facility:[facility] Start: 05-11-2024 End: 05-11-2024 ambulatory [facility] Facility:[facility] Start: 04-06-2024 End: 04-06-2024 ambulatory [facility] Facility:[facility] Start: 04-06-2024 End: 04-06-2024 Patient encounter procedure Jesus Taylor MD Work Phone: [facility] Comment on above: Acquired hypothyroid ism (Primary Dx); Drug-induced osteoporosis; H/O mitral valve replacement; Pacemaker; Encounter for immunization Start: 04-02-2024 End: 04-02-2024 ambulatory JESUS Erin GALINDOERIE Facility:[facility] Start: 04-01-2024 End: 04-01-2024 ambulatory Codie King RN [facility] Start: 04-01-2024 End: 04-01-2024 Patient encounter procedure Codie King RN [facility] Start: 03-31-2024 End: 03-31-2024 ambulatory Codie King RN [facility] Start: 03-31-2024 End: 03-31-2024 Patient encounter procedure Codie King RN [facility] Start: 02-24-2024 End: 02-24-2024 Patient encounter procedure Lalita Perkins APRN.HANSARD REPORTER Work Phone: Cardiology Comment on above: Essential [...] encounter procedure Jesus Taylor MD Work Phone: [facility] Comment on above: Hospital discharge f ollow-up (Primary Dx); Pacemaker; H/O mitral valve replacement Start: 01-28-2024 End: 01-28-2024 Telephone encounter Belle Helms RN NOC Comment on above: Follow Up Phone Call (Relate care discharge follow up-1st attempt-no contact-left vm) Start: 01-27-2024 End: 01-27-2024 Patient Outreach Christiano Conner [facility] Work Phone: Pharmacy Comment on above: Transition Of Care ( [facility] Pharmacy-Hospital discharge 01/23/24 ) Transition Of Care Start: 01-16-2024 End: 01-16-2024 ambulatory Shima Tadeo APRN.HANSARD REPORTER, DNP Work Phone: Cardiology Start: 01-13-2024 End: 01-13-2024 Evaluation and management of inpatient Gloria White DDS Work Phone: Dentistry Comment on above: History of mitral va lve replacement with bioprosthetic valve (Primary Dx); Pre-operative clearance; Prosthetic mitral valve failure requiring replacement Start: 01-13-2024 End: 01-13-2024 Preoperative state Gloria White DDS Work Phone: [facility] Start: 01-12-2024 End: 01-12-2024 Evaluation and management of inpatient Ip Transesophageal Echo Cardiology Comment on above: History of mitral va lve replacement with bioprosthetic valve (Primary Dx) Start: 01-05-2024 End: 01-05-2024 Patient encounter procedure Jesus Taylor MD Work Phone: [facility] Comment on above: Hospital discharge f ollow-up (Primary Dx); Acute exacerbation of chronic heart failure (HCC); H/O mitral valve replacement Start: 10-03-2023 End: 10-03-2023 Patient encounter procedure Jesus Taylor MD Work Phone: [facility] Comment on above: Acquired hypothyroid ism (Primary Dx); Pulmonary hypertension (HCC); H/O mitral valve replacement; Rheumatic heart disease; Chronic constipation; Drug-induced osteoporosis Start: 09-01-2023 End: 09-01-[address] Jesus Taylor Work Phone: [facility] Work Phone: Start: 09-01-2023 End: 09-01-[address] Jesus Taylor Work Phone: [facility] Work Phone: Start: 08-04-2023 Refill Jesus hauser MD Work Phone: [facility] Comment on above: Refill Request Start: 07-31-2023 Non-patient / Non-visit Dr. Anupam Taylor Work Phone: [facility] Start: 07-31-2023 End: 07-31-[address] Jesus Taylor Work Phone: [facility] Work Phone: Start: 07-31-2023 End: 07-31-[address] Jesus Taylor Work Phone: [facility] Work Phone: Start: 04-29-2023 End: 04-29-2023 Patient encounter procedure Jesus Taylor MD Work Phone: [facility] Comment on above: Pulmonary hypertensi on (HCC) (Primary Dx); Chronic constipation; Rheumatic heart disease; H/O mitral valve replacement; Acquired hypothyroidism; Need for influenza vaccination Start: 10-03-2022 End: 10-03-2022 Patient encounter procedure Jesus Taylor MD Work Phone: [facility] Comment on above: Acquired hypothyroid ism (Primary Dx); Chronic constipation; H/O mitral valve replacement; Pulmonary hypertension (HCC) Start: 08-15-2022 Refill Jesus hauser MD Work Phone: [facility] Comment on above: Refill Request Start: 07-01-2022 Telephone encounter Jesus mcgill MD Work Phone: [facility] Comment on above: Referral Request Start: 04-01-2022 End: 04-01-2022 Patient encounter procedure Jesus Taylor MD Work Phone: [facility] Comment on above: Acquired hypothyroid ism (Primary Dx); Need for influenza vaccination; Chronic constipation Start: 03-14-2022 Non-patient / Non-visit Dr. Anupam Taylor Work Phone: [facility] Start: 03-14-2022 End: 03-14-[address] Jesus Taylor Work Phone: [facility] Work Phone: Start: 03-14-2022 End: 03-14-[address] Jesus Taylor Work Phone: [facility] Start: 09-28-2021 End: 09-28-2021 Patient encounter procedure Jesus Taylor MD Work Phone: [facility] Comment on above: Acquired hypothyroid ism (Primary Dx); H/O mitral valve replacement; Chronic constipation Start: 08-30-2021 Refill Jesus hauser MD Work Phone: [facility] Comment on above: Refill Request Start: 10-19-2013 End: 10-23-2013 Patient encounter status Jesus Taylor MD Work Phone: [facility] Procedures Date Procedure Procedure Detail Performing Clinician Start: 11-12-[address] Jesus Taylor MD Work Phone: Start: 11-12-[address] Kristin Taylor MD Work Phone: Comment on above: Negative <1:80 Borde rline 1:80 Positive >1:80ICAP nomenclature: AC-0For more information about Hep-2 cell patterns useANApatterns.org, the official website for theInternational Consensus on Antinuclear Antibody (MICHAEL)Patterns (ICAP).Performed at: [place] [id number] Director: Taye Nguyen PhD, Phone: [phone] Start: 11-12-2024 Electrophoresis: [id number] Dr. Jesus Taylor MD Work Phone: Start: 11-12-2024 Electrophoresis: [id number] Dr. Jesus Taylor MD Work Phone: Start: [...] HCV Quant by PCR testing - HCVPCR #[id number] Non Reactive: < 0.8 Equivocal: >/= 0.8 to < 1.0 Reactive: >/= 1.0The CDC requires that a reactive/equivocal HCV antibody result be sent out for confirmation. HCV Quant by PCR testing. Start: 11-12-2024 Urnls dip stick/tabl et reagent auto microscopy Dr. Jesus Taylor MD Work Phone: Start: 11-01-2024 Colonoscopy flx dx w /collj spec when pfrmd Pennie Saroj HOCKEY INSTRUCTOR.HANSARD REPORTER Work Phone: Start: 10-05-2024 Adult depression scr eening assessment Jesus Taylor MD Work Phone: Start: 02-24-2024 Prgrmg dev eval implantable subq lead dfb system [facility] Provider Start: 01-13-2024 29 ROOT CANAL Dental [...] 12-07-2015 Follow Up Appt 6 months Caleb Tarango MD Start: 12-07-2015 End: 12-07-2015 MMKacey Tarango [...] Start: 10-02-2027 Diabetes Screening Diabetes Screenin g [facility] Start: 04-02-2027 Diabetes Screening Diabetes Screenin g [facility] Start: 01-22-2027 Diabetes Screening Diabetes Screenin g [facility] Start: 01-10-2027 Diabetes Screening Diabetes Screenin g [facility] Start: 09-19-2026 Diabetes Screening Diabetes Screenin g [facility] Start: 04-28-2026 Diabetes Screening Diabetes Screenin g [facility] Start: 10-05-2025 Anxiety Screening Anxiety Screening [facility] Start: 10-05-2025 Depression Screening Depression Scre ening [facility] Start: 10-05-2025 Shingrix Vaccine (2 of 3) Sanchez grix Vaccine (2 of 3) [facility] Comment on above: Postponed from 10/14 (Declined at this time) Start: 05-02-2025 Urine microalbumin profile [facility] Start: 04-07-2025 End: 07-07-2025 CBC W Auto Differential panel - Blood COMPLETE BLOOD COUNT AND DIFFERENTIAL Lab Routine Acquired hypothyroidism Hypertensive heart disease with heart failure (HCC) Complete heart block (HCC) Expected: 04/07/2025 (Approximate), Expires: 07/07/2025 [facility] Comment on above: Expected: 04/07/2025 (Approximate), Expires: 07/07/2025 Start: 04-07-2025 End: 07-07-2025 Comprehensive metabolic 2000 panel - Serum or Plasma COMPREHENSIVE METABOLIC PANEL Lab Routine Hypertensive heart disease with heart failure (HCC) Complete heart block (HCC) H/O mitral valve replacement Expected: 04/07/2025 (Approximate), Expires: 07/07/2025 [facility] Work Phone: Comment on above: Expected: 04/07/2025 (Approximate), Expires: 07/07/2025 Start: 04-07-2025 End: 07-07-2025 Thyrotropin [Units/volume] in Serum or Plasma THYROID STIMULATING HORMONE Lab Routine Acquired hypothyroidism Expected: 04/07/2025 (Approximate), Expires: 07/07/2025 [facility] Comment on above: Expected: 04/07/2025 (Approximate), Expires: 07/07/2025 Start: 04-06-2025 Covid-19 Vaccine ( season) Covid-19 Vaccine ( season) [facility] Comment on above: Postponed from 01/24 (Declined at this time) Start: 04-06-2025 RSV Vaccine (1 - 1-d ose 75+ series) RSV Vaccine (1 - 1-dose 75+ series) [facility] Comment on above: Postponed from 12/15 (Declined at this time) Start: 03-22-2025 End: 03-22-2025 Patient encounter procedure 03/22/2025 9:40 AM EDT Office Visit [facility] [address] [facility] [place] [address] Jesus Taylor MD [address] [facility] [place] [address] 6 mo f/u [facility] Comment on above: 6 mo f/u Start: 01-24-2025 Influenza vaccination Influenza Vacc ine (#1) [facility] Start: 11-08-2024 End: 11-08-2024 Patient encounter procedure 11/08/2024 9:00 AM EDT Office Visit General Surgery [address] [place] [address] Pennie Ruelas APRN.HANSARD REPORTER [address] [place] [address] FU: Colonoscopy with path 11/01/2024 [facility] General Surgery Comment on above: FU: Colonoscopy with path 11/01/2024 [facility] Start: 11-01-2024 End: 11-01-2024 Patient encounter procedure 11/01/2024 10:15 AM EDT Appointment Ambulatory Surgery [address] [place] [address] Fritz Pope MD [address] [place] [address] Screening for colon cancer [Z12.11]; Family history of colon cancer in father [Z80.0]; History of colonic polyps [Z86.0100] Ambulatory Surgery Comment on above: Screening for colon cancer [Z12.11]; Family history of colon cancer in father [Z80.0]; History of colonic polyps [Z86.0100] Start: 10-05-2024 End: 10-05-2024 Patient encounter procedure 10/05/2024 9:00 AM EDT Office Visit Family [facility] [address] [place] [address] Jesus Taylor MD [address] [facility] [place] [place] [address] 6 mo f/u [facility] Comment on above: 6 mo f/u Start: 10-04-2024 End: 01-03-2025 CBC W Auto Differential panel - Blood COMPLETE BLOOD COUNT AND DIFFERENTIAL Lab Routine Drug-induced osteoporosis Expected: 10/04/2024 (Approximate), Expires: 01/03/2025 [facility] Comment on above: Expected: 10/04/2024 (Approximate), Expires: 01/03/2025 Start: 10-04-2024 End: 01-03-2025 Comprehensive metabolic 2000 panel - Serum or Plasma COMPREHENSIVE METABOLIC PANEL Lab Routine Drug-induced osteoporosis Expected: 10/04/2024 (Approximate), Expires: 01/03/2025 [facility] Work Phone: Comment on above: Expected: 10/04/2024 (Approximate), Expires: 01/03/2025 Start: 10-04-2024 End: 01-03-2025 Thyrotropin [Units/volume] in Serum or Plasma THYROID STIMULATING HORMONE Lab Routine Acquired hypothyroidism Expected: 10/04/2024 (Approximate), Expires: 01/03/2025 [facility] Comment on above: Expected: 10/04/2024 (Approximate), Expires: 01/03/2025 Start: 10-02-2024 Anxiety Screening Anxiety Screening [facility] Start: 10-02-2024 Covid-19 Vaccine () Covid-19 Vaccine () [facility] Comment on above: Postponed from 01/24 (Declined at this time) Start: 10-02-2024 Depression Screening Depression Scre ening [facility] Start: 07-16-2024 End: 07-16-2024 ambulatory 07/16/2024 10:45 AM EST Results Only Cardiology [address] [place] [address] Essential hypertension Cardiology Comment on above: Essential hypertensi on Start: 07-16-2024 End: 07-16-2024 Patient encounter procedure Cardiology Comment on above: Essential hypertensi on Start: 05-26-2024 Advance Directive Discussion Advance Directive Discussion [facility] Start: 05-26-2024 Medicare Advantage A nnual Wellness Visit Medicare Advantage Annual Wellness Visit [facility] Start: 04-06-2024 End: 04-06-2024 Patient encounter procedure 04/06/2024 8:00 AM EST Office Visit [facility] [address] [place] [address] Jesus Taylor MD [address] [place] [address] 6 month follow up TSH [facility] Comment on above: 6 month follow up [facility] Start: 04-04-2024 End: 07-04-2024 CBC W Auto Differential panel - Blood COMPLETE BLOOD COUNT AND DIFFERENTIAL Lab Routine Drug-induced osteoporosis Expected: 04/04/2024 (Approximate), Expires: 07/04/2024 [facility] Comment on above: Expected: 04/04/2024 (Approximate), Expires: 07/04/2024 Start: 04-04-2024 End: 07-04-2024 Comprehensive metabolic 2000 panel - Serum or Plasma COMPREHENSIVE METABOLIC PANEL Lab Routine Drug-induced osteoporosis Expected: 04/04/2024 (Approximate), Expires: 07/04/2024 [facility] Work Phone: Comment on above: Expected: 04/04/2024 (Approximate), Expires: 07/04/2024 Start: 04-04-2024 End: 07-04-2024 Thyrotropin [Units/volume] in Serum or Plasma THYROID STIMULATING HORMONE Lab Routine Acquired hypothyroidism Expected: 04/04/2024 (Approximate), Expires: 07/04/2024 [facility] Comment on above: Expected: 04/04/2024 (Approximate), Expires: 07/04/2024 Start: 03-13-2024 DIABETES SCREEN DIABETES SCREEN [facility] Start: 03-04-2024 End: 03-04-2024 Patient encounter procedure 03/04/2024 2:15 PM EDT Appointment Cardiology [address] [place] [address] OUTPATIENT 4-6 WEEK DEVICE CHECK (PACEMAKER) Cardiology Comment on above: OUTPATIENT 4-6 WE EK DEVICE CHECK (PACEMAKER) Start: 02-24-2024 End: 05-25-2024 CBC panel - Blood by Automated count COMPLETE BLOOD COUNT Lab Routine Essential hypertension Mixed hyperlipidemia S/P transcatheter mitral valve replacement (TMVR) Expected: 02/24/2024, Expires: 05/25/2024 [facility] Comment on above: Expected: 02/24/2024 , Expires: 05/25/2024 Start: 02-24-2024 End: 05-25-2024 Comprehensive metabolic 2000 panel - Serum or Plasma COMPREHENSIVE METABOLIC PANEL Lab Routine Essential hypertension Mixed hyperlipidemia S/P transcatheter mitral valve replacement (TMVR) Expected: 02/24/2024, Expires: 05/25/2024 [facility] Comment on above: Expected: 02/24/2024 , Expires: 05/25/2024 Start: 02-24-2024 End: 05-25-2024 Hemoglobin A1c in Blood HEMOGLOBIN A1C Lab Routine Essential hypertension Mixed hyperlipidemia S/P transcatheter mitral valve replacement (TMVR) Expected: 02/24/2024, Expires: 05/25/2024 [facility] Comment on above: Expected: 02/24/2024 , Expires: 05/25/2024 Start: 02-24-2024 End: 05-25-2024 Lipid 1996 panel - Serum or Plasma LIPID PANEL BASIC Lab Routine Essential hypertension Mixed hyperlipidemia S/P transcatheter mitral valve replacement (TMVR) Expected: 02/24/2024, Expires: 05/25/2024 [facility] Comment on above: Expected: 02/24/2024 , Expires: 05/25/2024 Start: 02-24-2024 End: 02-24-2024 Patient encounter procedure Cardiology Comment on above: Transcatheter Valve in Valve OUTPATIENT 4-6 WE EK DEVICE CHECK (PACEMAKER) Start: 01-30-2024 End: 01-30-2024 Patient encounter procedure 01/30/2024 2:20 PM EDT [facility] [address] [place], [place] [id number] Jesus Taylor MD [address] [place], [place] [id number] Hospital f/u [facility] Comment on above: Hospital f/u Start: 01-25-2024 Covid-19 Vaccine () Covid-19 Vaccine () [facility] Start: 01-25-2024 Covid-19 Vaccine ( season) Covid-19 Vaccine ( season) [facility] Start: 01-25-2024 Influenza vaccination Influenza Vacc ine (#1) [facility] Start: 01-20-2024 End: 01-20-2024 Patient encounter procedure 01/20/2024 7:45 AM EDT Office Visit Cardiology [address] [place] [address] Transcatheter Mitral Valve in Valve Replacement with Pickett 29mm S3 + JERRY. Cardiology Comment on above: Transcatheter Mitral Valve in Valve Replacement with Pickett 29mm S3 + JERRY. Start: 01-20-2024 End: 01-20-2024 ambulatory 01/20/2024 7:30 AM EDT Procedure Cardiology [address] [place] [address] Transcatheter Mitral Valve in Valve Replacement with Pickett 29mm S3 + JERRY. Cardiology Comment on above: Transcatheter Mitral Valve in Valve Replacement with Pickett 29mm S3 + JERRY. Start: 01-20-2024 End: 01-20-2024 Evaluation and management of inpatient 01/20/2024 5:23 AM EDT - 01/20/2024 12:40 PM EDT Surgery Admitting [address] [place], [place] [id number] Tano Aldana MD [address] [facility] [address] [place] [address] TRANSCATH MITRAL VALVE IMPLANT/REPLACE,PROSTHET IC VALVE,PERCUTANEOUS APPROACH Admitting Comment on above: TRANSCATH MITRAL CARLOS VE IMPLANT/REPLACE,PROSTHETIC VALVE,PERCUTANEOUS APPROACH Start: 01-20-2024 End: 01-20-2024 Tmvi w/prosthetic valve percutaneous approach TRANSCATH MITRAL VALVE IMPLANT/REPLACE,PROSTHET IC VALVE,PERCUTANEOUS APPROACH Coronary graft stenosis, initial encounter 01/20/2024 5:23 AM EDT SANIYA FIERRO CT & VAS Start: 01-14-2024 End: 01-14-2024 ambulatory 01/14/2024 8:30 AM EDT Procedure Cardiology [address] [place], [place] [id number] Eren Mcdowell MD [address] [place] [address] [id number] Cardiology Comment on above: [id number] Start: 01-14-2024 End: 01-14-2024 Cath placement & njx coronary art angio img s&i CATH CORONARY ARTERY ANGIOGRAPHY W/ INTRAPROCEDURAL INJECTION IMAGING SUPERVISIO/INTERPRETATIO N Valvular heart disease 01/14/2024 4: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 Start: 01-14-2024 End: 01-14-2024 Evaluation and management of inpatient 01/14/2024 4:00 AM EDT - 01/14/2024 5:12 AM EDT Surgery HOSP [facility] [address] [place] [address] Eren Mcdowell MD [address] [place] [address] CATH CORONARY ARTERY ANGIOGRAPHY W/ INTRAPROCEDURAL INJECTION IMAGING SUPERVISIO/INTERPRETATIO N [facility] Comment on above: CATH CORONARY ARTERY ANGIOGRAPHY [...] heart failure (HCC) Expected: 01/05/2024, Expires: 04/05/2024 [facility] Work Phone: Comment on above: Expected: 01/05/2024 , Expires: 04/05/2024 Start: 10-04-2023 COVID-19 VACCINE (#1) COVID-19 VACCI NE (#1) [facility] Comment on above: Postponed from 06/17 (Declined at this time) Start: 09-23-2023 End: 12-23-2023 CBC panel - Blood by Automated count CBC Lab Routine Pulmonary hypertension (HCC) H/O mitral valve replacement Acquired hypothyroidism Expected: 09/23/2023 (Approximate), Expires: 12/23/2023 [facility] Work Phone: Comment on above: Expected: 09/23/2023 (Approximate), Expires: 12/23/2023 Start: 09-23-2023 End: 12-23-2023 Comprehensive metabolic 2000 panel - Serum or Plasma COMP METABOLIC PANEL Lab Routine Pulmonary hypertension (HCC) Expected: 09/23/2023 (Approximate), Expires: 12/23/2023 [facility] Work Phone: Comment on above: Expected: 09/23/2023 (Approximate), Expires: 12/23/2023 Start: 09-23-2023 End: 12-23-2023 Thyrotropin [Units/volume] in Serum or Plasma TSH BLD Lab Routine Acquired hypothyroidism Expected: 09/23/2023 (Approximate), Expires: 12/23/2023 [facility] Work Phone: Comment on above: Expected: 09/23/2023 (Approximate), Expires: 12/23/2023 Start: 05-26-2023 Advance Directive Discussion Advance Directive Discussion [facility] Start: 05-26-2023 Depression Assessment Depression Ass essment [facility] Start: 04-05-2023 End: 06-05-2023 CBC panel - Blood by Automated count CBC Lab Routine Acquired hypothyroidism Pulmonary hypertension (HCC) Expected: 04/05/2023 (Approximate), Expires: 06/05/2023 [facility] Work Phone: Comment on above: Expected: 04/05/2023 (Approximate), Expires: 06/05/2023 Start: 04-05-2023 End: 06-05-2023 Comprehensive metabolic 2000 panel - Serum or Plasma COMP METABOLIC PANEL Lab Routine H/O mitral valve replacement Pulmonary hypertension (HCC) Expected: 04/05/2023 (Approximate), Expires: 06/05/2023 [facility] Work Phone: Comment on above: Expected: 04/05/2023 (Approximate), Expires: 06/05/2023 Start: 04-05-2023 End: 06-05-2023 Thyrotropin [Units/volume] in Serum or Plasma TSH BLD Lab Routine Acquired hypothyroidism Expected: 04/05/2023 (Approximate), Expires: 06/05/2023 [facility] Work Phone: Comment on above: Expected: 04/05/2023 (Approximate), Expires: 06/05/2023 Start: 01-24-2023 Covid-19 Vaccine () Covid-19 Vaccine () [facility] Start: 09-29-2022 End: 11-29-2022 CBC panel - Blood by Automated count CBC Lab Routine Acquired hypothyroidism Expected: 09/29/2022 (Approximate), Expires: 11/29/2022 [facility] Work Phone: Comment on above: Expected: 09/29/2022 (Approximate), Expires: 11/29/2022 Start: 09-29-2022 End: 11-29-2022 Comprehensive metabolic 2000 panel - Serum or Plasma COMP METABOLIC PANEL Lab Routine Acquired hypothyroidism Expected: 09/29/2022 (Approximate), Expires: 11/29/2022 [facility] Work Phone: Comment on above: Expected: 09/29/2022 (Approximate), Expires: 11/29/2022 Start: 09-29-2022 End: 11-29-2022 Thyrotropin [Units/volume] in Serum or Plasma TSH BLD Lab Routine Acquired hypothyroidism Expected: 09/29/2022 (Approximate), Expires: 11/29/2022 [facility] Work Phone: Comment on above: Expected: 09/29/2022 (Approximate), Expires: 11/29/2022 Start: 05-26-2022 ADVANCE DIRECTIVE DISCUSSION ADVANCE DIRECTIVE DISCUSSION [facility] Start: 05-26-2022 DEPRESSION ASSESSMENT DEPRESSION ASS ESSMENT [facility] Start: 03-31-2022 End: 05-31-2022 Thyrotropin [Units/volume] in Serum or Plasma TSH BLD Lab Routine Acquired hypothyroidism Expected: 03/31/2022, Expires: 05/31/2022 [facility] Work Phone: Comment on above: Expected: 03/31/2022 , Expires: 05/31/2022 Start: 05-26-2021 ADVANCE DIRECTIVE DISCUSSION ADVANCE DIRECTIVE DISCUSSION [facility] Start: 06-09-2017 End: 06-09-2017 Appointment Appointment [facility] Work Phone: Start: 12-12-2016 End: 12-12-2016 Appointment Appointment [facility] Work Phone: Start: 12-12-2016 End: 12-12-2016 Follow Up Appt 6 months Follow Up Appt 6 months [facility] Work Phone: Start: 12-12-2016 End: 12-12-2016 Follow Up Appt Other Follow Up Appt Other [facility] Work Phone: Start: 12-12-2016 End: 12-12-2016 MMM MMM [facility] Work Phone: Start: 06-05-2016 End: 06-05-2016 Follow Up Appt 6 months Follow Up Appt 6 months [facility] Work Phone: Start: 06-05-2016 End: 06-05-2016 PFM PFM [facility] Work Phone: Start: 12-07-2015 End: 12-07-2015 Follow Up Appt 6 months Follow Up Appt 6 months [facility] Work Phone: Start: 12-07-2015 End: 12-07-2015 MMM MMM [facility] Work Phone: Start: 07-13-2015 End: 07-17-2015 *CBC with Differential *CBC with Differential [facility] Work Phone: Start: 07-13-2015 End: 07-13-2015 Electrocardiogram, complete EKG (In office) [facility] Work Phone: Start: 07-13-2015 End: 07-17-2015 Erythrocyte sedimentation rate *Sedimentation Rate (ESR) [facility] Work Phone: Start: 07-13-2015 End: 07-13-2015 Follow Up Appt 6 months Follow Up Appt 6 months [facility] Work Phone: Start: 07-13-2015 End: 07-13-2015 PFM PFM [facility] Work Phone: Start: 12-26-2014 End: 12-26-2014 Follow Up Appt 6 months Follow Up Appt 6 months [facility] Work Phone: Start: 12-26-2014 End: 12-26-2014 MMM MMM [facility] Work Phone: Start: 10-14-2014 SHINGRIX VACCINE (2 of 3) SANCHEZ GRIX VACCINE (2 of 3) [facility] Start: 06-07-2014 End: 07-07-2015 Electrocardiogram, complete EKG (In office) [facility] Work Phone: Start: 05-31-2014 End: 05-31-2014 Echocardiography Echocardiogram (complete) [facility] Work Phone: Start: 05-31-2014 End: 07-07-2015 Electrocardiogram, complete EKG (In office) [facility] Work Phone: Start: 05-31-2014 End: 05-31-2014 Follow Up Appt 6 months Follow Up Appt 6 months [facility] Work Phone: Start: 05-31-2014 End: 05-31-2014 Follow Up Appt Other Follow Up Appt Other [facility] Work Phone: Start: 05-31-2014 End: 05-31-2014 PFM PFM [facility] Work Phone: Start: 02-08-2014 End: 02-08-2014 Follow Up Appt 3 months Follow Up Appt 3 months [facility] Work Phone: Start: 02-08-2014 End: 02-08-2014 PFM PFM [facility] Work Phone: Start: 12-01-2013 End: 01-25-2014 Follow Up Appt Other Follow Up Appt Other [facility] Work Phone: Start: 11-05-2013 End: 01-25-2014 Cardiac Rehab Cardiac Rehab [facility] Work Phone: Start: 11-05-2013 End: 11-08-2013 Cardiovascular stress test using treadmill Treadmill stress test (no imaging) [facility] Phone: Start: 11-05-2013 End: 11-05-2013 Electrocardiogram, complete EKG (In office) [facility] Work Phone: Start: 11-05-2013 End: 11-05-2013 Follow Up Appt 3 months Follow Up Appt 3 months [facility] Work Phone: Start: 11-05-2013 End: 11-05-2013 MMM MMM [facility] Work Phone: Start: 10-26-2013 End: 10-29-2013 Coagulation factor induced.INR assay in platelet poor plasma *PT/INR - Standing Order [facility] Work Phone: Start: 09-15-2013 End: 01-25-2014 Cardiac Referral Cardiac Referral Jose Cason, [facility], [address], [place], [address] [facility] Work Phone: Start: 09-02-2013 End: 09-06-2013 *BMP *BMP [facility] Work Phone: Start: 09-02-2013 End: 09-06-2013 *CBC with Differential *CBC with Differential [facility] Work Phone: Start: 09-02-2013 End: 09-06-2013 aPTT *PTT-Partial Thromboplastin Time [facility] Work Phone: Start: 09-02-2013 End: 09-06-2013 aPTT Coag time (PPP) *PTT-Partial Thromboplastin Time [facility] Work Phone: Start: 09-02-2013 End: 09-09-2013 Chest x-ray X-Ray, Chest, PA & Lateral [facility] Work Phone: Start: 09-02-2013 End: 09-06-2013 Coagulation factor induced.INR assay in platelet poor plasma *PT/INR [facility] Work Phone: Start: 09-02-2013 End: 09-02-2013 Electrocardiogram, complete EKG (In office) [facility] Work Phone: Start: 09-02-2013 End: 09-02-2013 Follow Up Appt 3 months Follow Up Appt 3 months [facility] Work Phone: Start: 09-02-2013 End: 09-02-2013 Left & Right Heart Cath Left & Right Heart Cath [facility] Work Phone: Start: 09-02-2013 End: 09-02-2013 MMM MMM [facility] Work Phone: Start: 2012 RSV Vaccine (1 - 1-d ose 75+ series) RSV Vaccine (1 - 1-dose 75+ series) [facility] Start: 1997 RSV Vaccine (1 - 1-d ose 60+ series) RSV Vaccine (1 - 1-dose 60+ series) [facility] Start: 1942 COVID-19 VACCINE (1) COVID-19 VACCIN E (1) [facility] Start: [birth year]-17-1938 COVID-19 VACCINE (#1) COVID-19 VACCI NE (#1) [facility] CARDIAC IMPLANTABLE DEVICE CHECK CARDIAC IMPLANTABLE DEVICE CHECK PACEART Routine Pacemaker reprogramming/check 02/24/2024 1:00 PM EDT [facility] CARDIAC REHAB II [place] ([place], [place]) CARDIAC REHAB II OUTPT ([place]) BIC Routine Mixed hyperlipidemia S/P transcatheter mitral valve replacement (TMVR) Ordered: 02/24/2024 [facility] Work Phone: Comment on above: Ordered: 02/24/2024 End: 02-23-2025 ECG COMPLETE ECG COMPLETE ECG Routine Essential hypertension Mixed hyperlipidemia S/P transcatheter mitral valve replacement (TMVR) 1 Occurrences starting 02/24/2024 until 02/23/2025 [facility] Work Phone: Comment on above: 1 Occurrences starti ng 02/24/2024 until 02/23/2025 End: 02-23-2025 Echocardiography ECHO Cardiology Routine Essential hypertension Mixed hyperlipidemia S/P transcatheter mitral valve replacement (TMVR) 1 Occurrences starting 02/24/2024 until 02/23/2025 [facility] Comment on above: 1 Occurrences starti ng 02/24/2024 until 02/23/2025 Patient referral [facility] Work Phone: End: 10-05-2025 Screening colonoscopy COLONOSCOPY SCREENING Endoscopy Routine Screening for colon cancer Family history of colon cancer in father History of colonic polyps 1 Occurrences starting 10/05/2024 until 10/05/2025 [facility] Work Phone: Comment on above: 1 Occurrences starti ng 10/05/2024 until 10/05/2025 Tissue Pathology bio psy report [facility] Work Phone: Comment on above: Release Upon Orderin g for 1 Occurrences starting 11/01/2024, 1 completed Tmvi w/prosthetic va lve percutaneous approach TRANSCATH MITRAL VALVE IMPLANT/REPLACE,PROSTHET IC VALVE,PERCUTANEOUS APPROACH Coronary graft stenosis, initial encounter SANIYA FIERRO CT & VAS [facility] Immunizations Immunization Date Immunization Notes Care Provider Sampson perry 04-06-2024 influenza, high dose seasonal, preservative-free Jesus Taylor MD Work Phone: [facility] 04-06-2024 influenza virus vacc ine, unspecified formulation Pennie Ruelas APRN.CNP Work Phone: [facility] 04-29-2023 influenza (HD-IIV4) vaccine, age 65+ yr, high dose, quadrivalent, PF (FLUZONE HIGH-DOSE) Jesus Taylor MD Work Phone: [facility] 04-29-2023 influenza virus vacc ine, unspecified formulation Jesus Taylor MD Work Phone: [facility] 04-01-2022 influenza, high-dose , quadrivalent vaccine (FLUZONE HIGH DOSE QUADRIVALENT) Jesus Taylor MD Work Phone: [facility] 03-29-2021 influenza, high-dose , quadrivalent vaccine (FLUZONE HIGH DOSE QUADRIVALENT) Jesus Taylor MD Work Phone: [facility] 04-13-2020 influenza, high-dose , quadrivalent vaccine (FLUZONE HIGH DOSE QUADRIVALENT) Jesus Taylor MD Work Phone: [facility] 03-01-2019 influenza, high dose seasonal, preservative-free Jesus Taylor MD Work Phone: [facility] 02-26-2018 influenza, high dose seasonal, preservative-free Jesus Taylor MD Work Phone: [facility] 03-14-2017 yellow fever vaccine Jesus cerna MD Work Phone: [facility] 02-13-2017 influenza, high dose seasonal, preservative-free Jesus Taylor MD Work Phone: [facility] 02-08-2016 influenza, high dose seasonal, preservative-free Jesus Taylor MD Work Phone: [facility] 05-02-2015 tetanus and diphther ia toxoids, adsorbed, preservative free, for adult use (5 Lf of tetanus toxoid and 2 Lf of diphtheria toxoid) Jesus Taylor MD Work Phone: [facility] 05-02-2015 typhoid vaccine, unspecified formulation Jesus Taylor MD Work Phone: [facility] 05-02-2015 typhoid capsular polysaccharide vaccine Jeuss Taylor MD Work Phone: [facility] 02-21-2015 influenza, high dose seasonal, preservative-free Jesus Taylor MD Work Phone: [facility] Work Phone: 02-03-2015 pneumococcal conjuga te vaccine, 13 valent Jesus Taylor MD Work Phone: [facility] 08-19-2014 zoster vaccine, live Jesus cerna MD Work Phone: [facility] 03-14-2014 influenza, seasonal, injectable Jesus Taylor MD Work Phone: [facility] Work Phone: 03-30-2013 influenza virus vacc ine, unspecified formulation Jesus Taylor MD Work Phone: [facility] Work Phone: 02-23-2013 Influenza virus vaccine [facility] 02-23-2013 influenza, seasonal, injectable, preservative free Ip Echo [facility] 03-09-2012 influenza virus vacc ine, unspecified formulation Jesus Taylor MD Work Phone: [facility] Work Phone: 03-28-2010 influenza virus vacc ine, unspecified formulation Jesus Taylor MD Work Phone: [facility] 07-24-2008 pneumococcal polysaccharide vaccine, 23 valent Jesus Taylor MD Work Phone: [facility] 07-24-2008 Pneumococcal Vaccine [facility] Work Phone: 07-24-2008 pneumococcal vaccine , unspecified formulation Dr. Jesus Taylor Work Phone: [facility] 02-01-2008 diphtheria and tetan us toxoids, adsorbed for pediatric use Jesus Taylor MD Work Phone: [facility] Work Phone: 02-01-2008 hepatitis A vaccine, unspecified formulation Jesus Taylor MD Work Phone: [facility] Work Phone: 02-01-2008 tetanus toxoid, redu jackie diphtheria toxoid, and acellular pertussis vaccine, adsorbed Jesus Taylor MD Work Phone: [facility] 09-26-2007 pneumococcal polysaccharide vaccine, 23 valent Jesus Taylor MD Work Phone: [facility] Work Phone: 01-26-1998 diphtheria and tetan us toxoids, adsorbed for pediatric use Jesus Taylor MD Work Phone: [facility] Work Phone: 01-26-1998 hepatitis A vaccine, unspecified formulation Jesus Taylor MD Work Phone: [facility] Work Phone: 10-29-1985 diphtheria and tetan us toxoids, adsorbed for pediatric use Jesus Taylor MD Work Phone: [facility] Work Phone: 03-14-1977 diphtheria and tetan us toxoids, adsorbed for pediatric use Jesus Taylor MD Work Phone: [facility] Work Phone: 08-25-1972 diphtheria and tetan us toxoids, adsorbed for pediatric use Jesus Taylor MD Work Phone: [facility] Work Phone: Payers Date Payer Category Payer Self-pay [id number] [id number] 2021 Medicare HUMANA MEDICARE HUMANA GOLD PLUS [id number] 2021-Present [phone] [place], [place] [address] [facility] [id number] 2021 Medicare HUMANA MEDICARE HUMANA GOLD PLUS [id number] 2021-Present [phone] [place] [id number] [facility] [id number] 2021 Medicare (Managed Care) HUMANA G OLD PLUS [id number] 2014 Medicare [id number] Unknown [id number] Unknown [id number] Unknown [id number] Unknown [id number] Unknown [id number] Unknown [id number] Unknown [id number] Unknown [id number] Unknown [id number] Unknown [id number] Unknown [id number] Social History Date Type Detail Facility Start: 04-01-2022 End: 01-08-2024 Tobacco smoking status NHIS Never smoked tobacco [facility] Start: 03-29-2021 End: 11-01-2024 Alcohol intake Current non-drinker of alcohol (finding) [facility] Start: 1935 Sex Assigned At Not on file [facility] Start: 09-18-2021 End: 04-01-2022 Exposure to SARS-CoV-2 (event) Not sure [facility] Start: 1935 Sex Assigned At Male [facility] Start: 10-04-2021 End: 09-01-2023 Tobacco smoking status NHIS Unknown if ever smoked [facility] Start: 08-27-2013 None [facility] Start: 08-27-2013 Non-smoker [facility] Start: 04-01-2022 Tobacco use and exposure Smokeless tobacco non-user [facility] Start: 04-29-2023 End: 01-09-2024 History of Social function [facility] Work Phone: Start: 04-29-2023 End: 01-09-2024 Tobacco use panel [facility] Work Phone: Start: 04-26-2012 Adult Depression Screening Assessment 0 [facility] Work Phone: Has the [employer], [employer], or water company threatened to shut off services in your home in past 12Mo No [facility] Work Phone: (I/We) worried wheth er (my/our) food would run out before (I/we) got money to buy more. Never true [facility] Medical Equipment Procedure Code Equipment Code Equipment Origin al Text Equipment Identifier Dates [place] Cv 4x.5in Thk1.65mm Ptfe - [id number] Start: 10-20-2013 Valve Mitrl 29mm Bprth Thrmfx - [id number] Start: 10-20-2013 Comment on above: Description: For Fredy ral Valve Replacement Lead Capsurefix Novus 6.2fr 2mm 10mm Space Small Straight Steroid Eluting - [id number] Start: 01-20-2024 [id number] Marni Xt Mri [id number] Start: 01-23-2024 Valve Deric 29m m Aortic Transcatheter Retroflex 3 Transfemoral Heart - [id number] Start: 01-20-2024 [id number] Selectsecure [id number] Start: 01-22-2024 [id number] Capsurefix Novus Mri [id number] Start: 01-22-2024 Goals Date Patient Goal Desired Activity /State Personal health goal Functional Status Date Assessment Result Facility 01-23-2024 Are you deaf, or do you have serious difficulty hearing No 01/23/2024 6:33 PM EDT Prabhu Calix, ANGE No [facility] 01-23-2024 Are you blind, or do you have serious difficulty seeing, even when wearing glasses No 01/23/2024 6:33 PM EDT Prabhu Calix, ANGE No [facility] 01-23-2024 Do you have serious difficulty walking or climbing stairs No 01/23/2024 6:33 PM EDPrabhu Harris, ANGE No [facility] 01-23-2024 Do you have difficul ty dressing or bathing No 01/23/2024 6:33 PM EDT Prabhu Calix, ANGE No [facility] 01-23-2024 Because of a physica l, mental, or emotional condition, do you have difficulty doing errands alone such as visiting a physician's office or shopping No 01/23/2024 6:33 PM EDPrabhu Harris, ANGE No [facility] Mental Status Date Assessment Result Facility 01-23-2024 Because of a physica l, mental, or emotional condition, do you have serious difficulty concentrating, remembering, or making decisions No 01/23/2024 6:33 PM Prabhu Hodgson, ANGE No [facility] Clinical Notes 09-23-2013 to 03-22-2025 Note Date & Type Note Facility 03-22-2025 Note HNO ID: [id number] Author: JESUS TAYLOR MD Service: ? Author [...] to tolerate. HTN/MVR: Follows with Cardio at [facility]. Has pacemaker which is checked by [facility]. No chest pains, dizziness, or Shortness of Breath. Taking ASA 325 mg daily. Thyroid: Taking Synthroid 75 mcg daily. Follows with [facility] but is not happy with them [...] 03/17/2025 1.56 Monocytes % 03/17/2025 10.0 Abs [place] 03/17/2025 0.69 Eosinophils % 03/17/2025 2.6 Abs Eosin 03/17/2025 0.18 Basophils % 03/17/2025 0.7 Abs Baso 03/17/2025 0.05 Immature Granulocytes % 03/17/2025 0.3 (more content not included)... [facility] 03-09-2025 Note HNO ID: [id number] Author: ?, ?, ? Service: ? Author Type: ? 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 Service: ? Author Type: ? 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 Service: ? 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] 10/26/2009 Vdftlkf-jt-pbb [K60.30] 03/23/2012 Perianal abscess [K61.0] 03/23/2012 08/27/2017 [...] Encounter Status:Closed by MARIBEL JACKSON on 03/03/25 [facility] 12-09-2024 Evaluation note Diagnosis Onset Date Resolution Complete heart block by electrocardiogram acute December 09 8:50am Presence of cardiac pacemaker acute December 09, 2024 8:50am S/P transcatheter mitral valve replacement (TMVR) acute December 092024 8:50am Paroxysmal atrial fibrillation chronic December 09, 2024 8:50am [place] [employer] Work Phone: 1(184) 245-250807-17-2025 Evaluation note* Diagnosis Onset Date Resolution Status [...] cardiac pacemaker acute March 08, 2025 8:51am [place] [employer] Work Phone: 1(285) 641-598306-16-2025 History of Present illness Narrative* Pennie Ruelas APRN.HANSARD REPORTER - 11/08/2024 9:00 AM EDT FOLLOW UP VISIT - ENDOSCOPY Ruperto A Mast 1935 [id number] REFERRING PHYSICIAN: No referring provider defined for [...] improvement. Pennie Ruelas APRN.LATONYA documented in this encounterMadison Health06-16-2025 NoteHNO ID: [id number] Author: PENNIE RUELAS APRN.LATONYA Service: ? Author Type: Nurse Practitioner Type: Progress Notes Filed: 11/08/2024 09:20 Note Text: FOLLOW UP VISIT - ENDOSCOPY Ruperto Castillo 1935 [id number] REFERRING PHYSICIAN: No referring provider defined for [...] as needed for worsening/no improvement. Pennie Ruelas APRN.[facility]06-09-2025 History and physical note* Fritz Pope MD - 11/01/2024 11:00 AM EDT HISTORY AND PHYSICAL Ruperto Lyn Mast : 1935 REFERRING PHYSICIAN: Jesus Taylor [address] [place] [address] CHIEF COMPLAINT: Patient presents with: Consult: Here [...] ulcers/ peptic ulcer disease. Ruperto follows with [facility] for MVR and HTN. 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 Last OV 05/2024. Last pacer check:08/10/24. Last ECHO 05/2024 EF: 55%.He denies CP, SOB, dizziness, palpitations, syncope, edema, recent hospitalizations Other medical history is significant for hypothyroidism,osteoporosis and chronic constipation. Ruperto has undergone prior endoscopy. Last colonoscopy was 10/[address] Arteaga at [facility]. Sedation:Midazolam 4 mg IV, Fentanyl 50 micrograms [...] DATE: November 01, 2024 TIME: 10:08 AM [facility]06-09-2025 History and physical note* Fritz Pope MD - 11/01/2024 11:00 AM EDT HISTORY AND PHYSICAL Ruperto Lyn Mast : 1935 REFERRING PHYSICIAN: Jesus Taylor [address] [facility] [address] CHIEF COMPLAINT: Patient presents with: Consult: Here for colonoscopy D/T previous polyps HPI: Rupreto is a 88 year old male referred [...] ulcers/ peptic ulcer disease. Ruperto follows with [facility] for MVR and HTN. 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 Last OV 05/2024. Last pacer check:08/10/24. Last ECHO 05/2024 EF: 55%.He denies CP, SOB, dizziness, palpitations, syncope, edema, recent hospitalizations Other medical history is significant for hypothyroidism,osteoporosis and chronic constipation. Ruperto has undergone prior endoscopy. Last colonoscopy was 10/[address] Arteaga at [facility]. Sedation:Midazolam 4 mg IV, Fentanyl 50 micrograms [...] edited and updated as necessary. Pennie Ruelas APRN.HANSARD REPORTER UPDATED HISTORY AND PHYSICAL EXAMINATION SERVICE DATE: [...] 2024 TIME: 10:08 AM documented in this encounterMadison Health06-09-2025 Note* Discharge Instr - Laila Zhu RN - 11/01/2024 10:58 AM EDT The patient received a copy of Colonoscopy discharge instructions that contain information for how to contact the physician who performed the procedure and when to seek medical care. [facility]06-09-2025 Miscellaneous Notes* Discharge Instr - Laila Zhu RN - 11/01/2024 10:58 AM EDT The patient received a copy of Colonoscopy discharge instructions that contain information for how to contact the physician who performed the procedure and when to seek medical care. documented in this encounterMadison Health05-13-2025 History of Present illness Narrative* Pennie Ruelas APRN.HANSARD REPORTER - 10/05/2024 10:30 AM EDT HISTORY AND PHYSICAL Ruperto Lyn Mast : 1935 REFERRING PHYSICIAN: Jesus Taylor [address] [facility] [address] CHIEF COMPLAINT: Patient presents with: Consult: Here [...] colonoscopy was 10/[address] Arteaga at [facility]. Sedation:Midazolam 4 mg IV, Fentanyl 50 micrograms [...] necessary. Pennie Ruelas APRN.LATONYA documented in this encounterMadison Health05-13-2025 NoteHNO ID: [id number] Author: PENNIE RUELAS APRN.CNP Service: ? Author Type: Nurse Practitioner Type: Progress Notes Filed: 10/05/2024 12:08 Note Text: HISTORY AND PHYSICAL Ruperto Castillo : 1935 REFERRING PHYSICIAN: Jesus Taylor [address] [facility] [address] CHIEF COMPLAINT: Patient presents with: Consult: Here [...] ulcers/ peptic ulcer disease. Ruperto follows with [facility] for MVR and HTN. 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 Last OV 05/2024. Last pacer check:08/10/24. Last ECHO 05/2024 EF: 55%.He denies CP, SOB, dizziness, palpitations, syncope, edema, recent hospitalizations Other medical history is significant for hypothyroidism,osteoporosis and chronic constipation. Ruperto has undergone prior endoscopy. Last colonoscopy was 10/[address] Arteaga at [facility]. Sedation:Midazolam 4 mg IV, Fentanyl 50 micrograms [...] frequent cough, denies shortn (more content not included)...[facility]05-13-2025 History of Present illness Narrative* Jesus Tayolr MD - 10/05/2024 9:00 AM EDT Chief [...] locations. - Pt preferring to stay in [place]. - Pt is to have repeat in 3 years, last Colonoscopy 2020. - CONSULT TO GENERAL SURGERY 6 mo f/u with labs. I agree with the Chief Complaint, ROS, and Past Histories independently gathered by the clinical family support worker and the remaining scribed note [...] AM. Danya Whitman MA documented in this encounterMadison Health05-13-2025 NoteHNO ID: [id number] Author: JESUS TAYLOR MD Service: ? Author [...] 10/01/2024 0.3 Alkaline Phosphatase (more content not included)...[facility]04-07-2025 Telephone encounter Note* Telephone Encounter - Jagruti Tidwell RN - 08/30/2024 11:25 AM EDT Chitra with [employer] Referrals calls to request a retro referral to dermatology because payment has beendenied for visit as patient didn't have a referral sent to dermatology prior to visit on August 03, 2024. Patient has a referral from 07/08/2024 for dermatology prior to actual OV. Faxed to [phone] [facility]. Provider Line [phone] for additional questions. Nothing further needed at this time. Notified office. Closing TE. Jagruti Tidwell RN [facility]04-07-2025 Miscellaneous Notes* Telephone Encounter - Jagruti Tidwell RN - 08/30/2024 11:25 AM EDT Chitra with [employer] Referrals calls to request a retro referral to dermatology because payment has beendenied for visit as patient didn't have a referral sent to dermatology prior to visit on August 03, 2024. Patient has a referral from 07/08/2024 for dermatology prior to actual OV. Faxed to [phone] [facility]. Provider Line [phone] for additional questions. Nothing further needed at this time. Notified office. Closing TE. Jagruti Tidwell RN documented in this encounterMadison Health03-12-2025 Telephone encounter Note * Telephone Encounter - Tyson Kyle APRN.CNP - 08/04/2024 1:58 PM EDT The following approved medication requests have been transmitted electronically. Requested Prescriptions Pending Prescriptions Disp Refills levothyroxine (SYNTHROID) 75 mcg tablet 90 tablet 3 Sig: Take one pill daily for 7 days/week Tyson Kyle APRN.CNP [facility]03-12-2025 Miscellaneous Notes* Telephone Encounter - Tyson Kyle [...] 04, 2024 12:07 PM documented in this encounterMadison Health03-12-2025 Telephone encounter Note * Telephone Encounter - [...] Desire Chaparro August 04, 2024 12:07 PM [facility]02-26-2025 NoteHNO ID: [id number] Author: WINIFRED VALLEJO MD Service: ? Author Type: Physician Type: Progress Notes Filed: 07/21/2024 10:31 Note Text: [facility] Department of Cardiovascular Medicine SECTION OF CLINICAL CARDIOLOGY OUTPATIENT VISIT DATE July 21, 2024 OUTPATIENT VISIT TYPE ESTABLISHED PRIMARY CARE PHYSICIAN: Jesus Taylor [address] [place] [address] REFERRING PHYSICIAN: Lalita Perkins [address] [facility] [address] CHIEF COMPLAINT: Routine follow-up HISTORY OF PRESENT ILLNESS: Mr. Castillo is a 88 year old male who presents today for a cardiovascular medicine follow-up visit. Patient had undergone a xdmpb-tn-emlqn transcatheter mitral valve replacement (Luisa TMVR) with [...] in size. Righ (more content not included)... [facility]02-26-2025 History of Present illness Narrative* Winifred Vallejo MD - 07/21/2024 9:46 AM EST Images from the original note were not included. [facility] Department of Cardiovascular Medicine SECTION OF CLINICAL CARDIOLOGY OUTPATIENT VISIT DATE July 21, 2024 OUTPATIENT VISIT TYPE ESTABLISHED PRIMARY CARE PHYSICIAN: Jesus Taylor [address] [place] [address] REFERRING PHYSICIAN: Lalita Perkins [address] [facility] [address] CHIEF COMPLAINT: Routine follow-up HISTORY OF PRESENT ILLNESS: Mr. Castillo is a 88 year old male who presents today for a cardiovascular medicine follow-up visit. Patient had undergone a vhkzh-an-xyioz transcatheter mitral valve replacement (Luisa TMVR) with [...] Moderate bilateral pleural effusions with adjacent atelectasis Numerical Control Machine Machinist: DERIAN Transcribe Date/Time: Jan 13 2024 11:05A [...] ~ Date Dictated: 05/27/24854 Date Transcribed: 05/27/241213 Numerical Control Machine Machinist: Signed I have personally reviewed the Echocardiogram [...] Department of Cardiovascular Medicine [facility] Desk [place] [address] Office Office Appointments: [phone] documented in this encounterMadison Health02-13-2025 Instructions* Patient Instructions* Codie Mann APRN.[facility] - 07/08/2024 9:53 AM EST Recommend consult with [facility], in [place] Recommend fragrance free health and beauty products. Recommend Dove sensitive soap for body and free and clear laundry soap. Monitor skin lesion on right leg, try not itch, if you notice increase redness, swelling start the doxycycline (antibiotic) Use steroid cream twice daily for 10 days for itching Follow up as needed. documented in this encounterMadison Health02-13-2025 History of Present illness Narrative* Codie Mann [...] APRN.CNP This note was partially generated using [employer] voice recognition system. Note was reviewed for accuracy. There may be minor misspellings or grammar miscues with [employer] voice recognition. documented in this encounterMadison Health02-13-2025 NoteHNO ID: [id number] Author: CODIE MANN APRN.CNP Service: ? Author [...] symptoms consistent with follicu (more content not included)...[facility]01-24-2025 History of Present illness Narrative* Jesus [...] Low Jesus Taylor MD documented in this encounterMadison Health01-24-2025 NoteHNO ID: [id number] Author: JESUS TAYLOR MD Service: ? Author [...] Decision Making Level: 3 - Low [facility] Instructions* Patient Instructions* Danya Whitman MA - 04/06/2024 8:23 AM EST Can use over the counter Tylenol (first choice) or Ibuprofen for pain. documented in this encounterMadison Health11-12-2024 History of Present illness Narrative* Jesus Taylor [...] 04/02/2024 1.33 Monocytes % 04/02/2024 8.0 Abs [place] 04/02/2024 0.47 Eosinophils % 04/02/2024 4.3 Abs Eosin 04/02/2024 0.25 Basophils % 04/02/2024 0.7 Abs Baso 04/02/2024 0.04 Immature Granulocytes % 04/02/2024 0.3 Abs Immature Gran 04/02/2024 <0.03 NRBC 04/02/2024 0.0 Absolute nRBC 04/02/2024 <0.01 Diff Type 04/02/2024 [facility] Outpatient Visit on 02/24/2024 Component Date Value Date Time Interrogation * 02/24/[id number] Implantable Pulse Genera* 02/24/2024 Medtronic Implantable Pulse Genera* 02/24/2024 Pacemaker Implantable Pulse Genera* 02/24/[address] MRI [id number] Implantable Pulse Genera* 02/24/2024 [id number] Implantable Pulse Genera* 02/24/2024 [id number] Battery Voltage 02/24/2024 3.190 Battery CHLORINE CELLS OPERATOR Trigger 02/24/2024 2.630 Battery Status 02/24/2024 OK [...] 02/24/2024 Connected Implantable Lead Serial * 02/24/2024 [id number] Implantable Lead Implant* 02/24/202471160442 Implantable Lead Manufac* 02/24/2024 Medtronic Implantable Lead Model 02/24/2024 [id number] CapsureFix Novus MRI Implantable Lead Location 02/24/2024 Right Atrium Implantable Lead Connect* 02/24/2024 Connected Implantable Lead Serial * 02/24/2024 [id number] Implantable Lead Implant* 02/24/[id number] ASSESSMENT/PLAN: 1. Acquired hypothyroidism - ICD9: 244.9, [...] Past Histories independently gathered by the clinical family support worker and the remaining scribed note [...] AM. Danya Whitman MA documented in this encounterMadison Health11-12-2024 NoteHNO ID: [id number] Author: JESUS TAYLOR MD Service: ? Author [...] Pt following with [facility] and [facility] Cardiology. Pt overall doing well at this [...] 04/02/2024 11 Estimated G (more content not included)...[facility]11-07-2024 NoteHNO ID: [id number] Author: ?, ?, ? Service: ? Author Type: ? Type: Progress Notes Filed: 04/01/2024 08:46 Note Text: Summary: KCCQ-12 AMB TVT FOLLOWUP: Follow Up Type: Phone Call Call Attempt: Final Attempt Call Status: No AnswerBl[facility] History of Present illness Narrative* Codie King - 04/01/2024 8:45 AM ESTSummary: KCCQ-12 AMB TVT FOLLOWUP: Follow Up Type: Phone Call Call Attempt: Final Attempt Call Status: No Answer documented in this encounterMadison Health11-07-2024 NotePatient Outreach (JOSE) RUPERTO CASTILLO ([id number]) 1935 M Date Time Provider Department 04/01/24 [...] Date Reviewed: 02/24/2024 Reviewed by: Lalita Perkins, HANSARD REPORTER - Fully Assessed Prescriptions as of 04/01/2024 [...] [E03.9] 04/27/2009 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 Service: ? Author Type: ? Type: Progress Notes Filed: 03/31/2024 09:02 Note Text: [facility] FOLLOW[facility]: Follow Up Type: Phone Call Call Attempt: 1st Attempt Call Status: Left MessageBlanchard Valley Health System [facility] History of Present illness Narrative* Codie King - 03/31/2024 9:01 AM ESTSummary: KCCQ-12 AMB TVT FOLLOWUP: Follow Up Type: Phone Call Call Attempt: 1st Attempt Call Status: Left Message documented in this encounterMadison Health11-06-2024 NotePatient Outreach (JOSE) RUPERTO CASTILLO ([id number]) 1935 M Date Time Provider Department 03/31/24 [...] Date Reviewed: 02/24/2024 Reviewed by: Lalita Perkins APRN.HANSARD REPORTER - Fully Assessed Prescriptions as of 03/31/2024 [...] [E03.9] 04/27/2009 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 [facility] Department of Cardiovascular Medicine SECTION OF INTERVENTIONAL CARDIOLOGY OUTPATIENT VISIT DATE February 16, 2024 OUTPATIENT VISIT TYPE ESTABLISHED FOLLOW UP Primary Registration Scheduling Specialist: Dr. Vallejo Chief Complaint: Patient here for [...] periodically with typical readings of SBP in [id number]. Denies chest pain, dyspnea on exertion, orthopnea, [...] Patient requesting appointments to be completed at [place], provided appointment line to contact to schedule. [...] completed, this can be done at the [place] location. You will need to be fasting [...] 4lbs from your dry weight, call your slicing machine operator Exercise: Be active and exercise every day. Smoking and alcohol abstinence/cessation, if applicable Heart Failure Education Booklet: information given previously. Please Visit [email or web address] Questions or Concerns after you go home? Please call Nurse credit collections manager line at . I spent a total of 40 minutes on the date of the service which included preparing to see the patient, [id number] patient care, completing clinical documentation, obtaining and/or reviewing separately obtained history, counseling and educating the patient/family/caregiver, and ordering medications, tests, or procedures. Lalita Perkins APRN.CNP documented in this encounterMadison Health10-01-2024 Instructions* Patient Instructions* Lalita Perkins APRN.CNP - 02/24/2024 1:32 PM EDT Follow up/Disposition: Cardiac rehab prescription provided Continue to check your blood pressure at home and record the results. Bring these results with you to the next appointment. Please have labs, EKG and echocardiogram completed, this can be done at the [place] location. You will need to be fasting for the lab work only. With Cardiology, Dr. Vallejo, in [address] Vallejo's office at if you have worsening shortness of breath, chest pain, lower extremity swelling, palpitations or weight gain of greater than 3 lbs in 1 day. Lalita Perkins APRN.CNP documented in this encounterMadison Health09-19-2024 Telephone encounter Note * Telephone Encounter - Vira Estrada - 02/12/2024 10:00 AM EDT Transitional Care Management (TCM) [facility] Monitoring Program Provider Action / FYI: Na SUMMARY: Outreach type: INITIAL OUTREACH Discharge Network Status: In-Network Discharge Source of Patient: [facility] TCM Discharge Report Patient discharged from [facility] on 01.23.24. Admitted for Acute heart failure with preserved ejection fraction (HCC) Contact made with patient: Yes, for Initial Outreach Hi my name is Vira Estrada and I am calling from the [facility] on behalf of your Primary Care Provider, [...] Appointment Center phone number to speak witha tree worker who can assist you with that appointment. [...] Vira Estrada February 12, 2024 10:02 AM [facility]09-19-2024 Miscellaneous Notes* Telephone Encounter - Vira Estrada - 02/12/2024 10:00 AM EDT Transitional Care Management (TCM) [facility] Provider Action / FYI: Na SUMMARY: Outreach type: INITIAL OUTREACH Discharge Network Status: In-Network Discharge Source of Patient: [facility] TCM Discharge Report Patient discharged from [facility] on 01.23.24. Admitted for Acute heart failure with preserved ejection fraction (HCC) Contact made with patient: Yes, for Initial Outreach Hi my name is Vira Estrada and I am calling from the [facility] on behalf of your Primary Care Provider, [...] Appointment Center phone number to speak witha tree worker who can assist you with that appointment. [...] 12, 2024 10:02 AM documented in this encounterMadison Health09-12-2024 Telephone encounter Note * Telephone Encounter - [...] Phone 02/24/2024 3:00 PM LALITA PERKINS lou [phone] 03/04/2024 2:15 PM [facility] Deyanira Ramos [phone] Any scheduling issues:No Questions moving forward: No Patient endorsed that he went to the local hospital and the nurse checked out his incision and thatit was healing well. Patient contacted at [phone] Fransisco Manriquez [facility]09-12-2024 Miscellaneous Notes* Telephone Encounter - Fabiana Blanc [...] Dept Phone 02/24/2024 3:00 PM LALITA PERKINS [facility] [phone] 03/04/2024 2:15 PM DEVICE CLINIC [facility] [phone] Any scheduling issues:No Questions moving forward: No Patient endorsed that he went to the local hospital and the nurse checked out his incision and thatit was healing well. Patient contacted at [phone] Fransisco Manriquez documented in this encounterMadison Health09-06-2024 History of Present illness Narrative* Jesus Taylor [...] today's visit. HPI Pt was seen in [facility] ER and transferred within 2-3 hours to [...] scheduled to see Cardiac Device Specialist at [facility] on 02/02/24 and Shantel Shepard with heart group on 02/20/24. Also scheduled in Feb with [facility] consumer education specialist. He is feeling like his energy level is slowly improving. He denies any chest pains, dizziness, or SOB. Has some mild swelling in the ankles. Does not have an advanced directive. Below copied from [facility]: HOSPITAL COURSE: Ruperto Castillo, an 88-year-old male with a history of rheumatic fever complicated by aortic stenosis, mitral valve stenosis (status post replacement with Андрей Pickett 29 mm in 2013), pulmonary hypertension, tricuspid insufficiency, HFpEF, paroxysmal atrial fibrillation, hypothyroidism, and osteoporosis, presented to the [facility] with acute on chronic dyspnea. He has a long history of dyspnea but had not required home oxygen. A right-sided thoracentesis on December 22, 2023, removed 1.4 liters of fluid, and the effusion was thought to be related to mitral valve dysfunction, perpatient report. On December 31, 2023, he was admitted to [facility] for ADHF with respiratory distress, requiring BiPAP. [...] It was decided to transfer him to [facility] for evaluation of potentialsurgical intervention based on worsening prosthetic mitral valve stenosis as evidenced by echocardiography. The patient also experienced episodes of narrow complex tachycardia and possibly atrial fibrillation, although the documentation was less clear. During his hospitalization at [facility], a transthoracic echocardiogram on January 09, 2024, [...] On January 20, 2024, he underwent a lqyua-[id number]-[id number] transcatheter mitral valve replacement (Luisa TMVR)with a [...] Past Histories independently gathered by the clinical family support worker and the remaining scribed note accurately describes my personal service to the patient. Jesus Taylor MD The documentation for this note was completed by Moni Harden MA acting as scribe for Jesus Taylor MD. January 30, 2024 2:26 PM. Moni Harden MA documented in this encounterMadison Health09-04-2024 Telephone encounter Note * Telephone Encounter - Belle Helms RN - 01/28/2024 1:43 PM EDT [place] [employer] nurse called patient for follow up from recent hospital discharge, but no answer. Left message on voicemail including resource nurse phone number for new or worsening symptoms, questions or concerns. Belle Helms RN [facility]09-04-2024 Miscellaneous Notes* Telephone Encounter - Belle Helms RN - 01/28/2024 1:43 PM EDT [facility] nurse called patient for follow up from recent hospital discharge, but no answer. Left message on voicemail including resource nurse phone number for new or worsening symptoms, questions or concerns. Belle Helms, RN documented in this encounterMadison Health09-03-2024 Telephone encounter Note * Telephone Encounter - Economy, Claudy - 01/27/2024 4:16 PM EDT Transitional Care Management (TCM) [facility] Monitoring Program Provider Action / FYI: na SUMMARY: Outreach type: INITIAL OUTREACH Discharge Network Status: In-Network Discharge Source of Patient: [facility] TCM Discharge Report Patient discharged from [facility] on 01.23.24. Admitted for Acute heart failure with preserved ejection fraction (HCC) . Contact made with patient: Yes, for Initial Outreach Hi my name is Claudy Ozuna and I am calling from the [facility] on behalf of your Primary Care Provider, [...] Appointment Center phone number to speak witha tree worker who can assist you with that appointment. [...] Claudy Ozuna January 27, 2024 4:20 PM [facility]09-03-2024 Miscellaneous Notes* Telephone Encounter - EconomyCaroline whytemeenu - 01/27/2024 4:16 PM EDT Transitional Care Management (TCM) [facility] Provider Action / FYI: na SUMMARY: Outreach type: INITIAL OUTREACH Discharge Network Status: In-Network Discharge Source of Patient: [facility] TCM Discharge Report Patient discharged from [facility] on 01.23.24. Admitted for Acute heart failure with preserved ejection fraction (HCC) . Contact made with patient: Yes, for Initial Outreach Hi my name is Claudy Ozuna and I am calling from the [facility] on behalf of your Primary Care Provider, [...] Appointment Center phone number to speak witha tree worker who can assist you with that appointment. [...] 27, 2024 4:20 PM documented in this encounterMadison Health09-03-2024 History of Present illness Narrative* Christiano Conner [...] oz) Patient was sent a message via [employer] including the link to the [facility] Heart Failure education video: No Patient unable to be reached after unsuccessful outreach attempt(s). No further attempts to contactpatient will be made. SUMMARY: -Pt discharged from [facility] on 01/23/24. -Medication review not done [...] fibrillation, hypothyroidism, and osteoporosis, presented to the [facility] with acute on chronic dyspnea. He has a long history of dyspnea but had not required home oxygen. A right-sided thoracentesis on December 22, 2023, removed 1.4 liters of fluid, and the effusion was thought to be related to mitral valve dysfunction, per patient report. On December 31, 2023, he was admitted to [facility] for ADHF with respiratory distress, requiring BiPAP. [...] It was decided to transfer him to [facility] for evaluation of potentialsurgical intervention based on worsening prosthetic mitral valve stenosis as evidenced by echocardiography. The patient also experienced episodes of narrow complex tachycardia and possibly atrial fibrillation, although the documentation was less clear. During his hospitalization at [facility], a transthoracic echocardiogram on January 09, 2024, [...] On January 20, 2024, he underwent a mybac-gh-tfocw transcatheter mitral valve replacement (Luisa TMVR)with a [...] by mouth daily with breakfast. Preferred pharmacy: [facility] [address] [place] [address] - [address] [facility] [phone] [address] [facility] [address] [facility] [place] [address] Count Includes [facility] [phone] [address] [facility] [address] [facility] [address] [facility] [address] Estimated Creatinine Clearance: 55.6 mL/min (based on SCr of 0.86 mg/dL). Estimated Glomerular Filtration Rate (mL/min/1.73m ) Date Value 01/23/2024 84 eGFR- (no units) Date Value 03/13/2021 >60 Additional follow up: Next 5 Appointments Date and Time Provider Department Dept Phone 02/24/2024 3:00 PM Lalita Perkins [facility] [phone] 03/04/2024 2:15 PM DEVICE CLINIC [facility] [phone] 04/06/2024 8:00 AM Jesus Taylor [facility] [phone] Interventions Made: None Pharmacist Recommendations Made None Care Coordination: None at this time Time spent on patient: 15-30 minutes Christiano Conner RPh January 27, 2024 8:42 AM documented in this encounterMadison Health08-23-2024 History of Present illness Narrative* Shima Tadeo [...] on pre-op day. Shima Tadeo APRN.CARL HANKS [facility]. Please schedule Ruperto Castillo, [phone] for Transcatheter Mitral Valve in Valve Replacement with Pickett 29mm S3 + JERRY. Procedure on: 01/20/2024 Patient is currently admitted and will remain in hospital until after procedure. Please place Structural lab schedule on : 01/20/2024 at 0730 CPT: 0483T Diag: T82.857A EQUAL OPPORTUNITY OFFICER: Performing Physician: Dr. Aldana OR: 81 [address]st Surgeon: Dr. Gallegos CAMILA schedule- intra/op Patient also needs INSURANCE PRECERTIFICATION SURVIVAL RATE GREATER THAN 1 YEAR____yes___(LOOKING FOR A YES) EF ___58%__(GREATER THAN 50%) Thank-you. Request sent to scheduling. Shima Tadeo APRN.CNP, DNP documented in this encounterMadison Health08-23-2024 History of Present illness Narrative* Shima Tadeo APRN.CARL HANKS - 01/16/2024 12:47 PM EDT Multidisciplinary Cardiac Team Review TRANSCATHETER MITRAL and TRICUSPID THERAPIES (TMTT) The below documentation is based on a mitral / tricuspid valve team discussion amongst the multidisciplinary team Attendees: Dr. Aldnaa, Dr. Cavazos, Dr. Avery, Dr. Juarez, Dr. Chao, Dr. [...] Shima Tadeo APRN.CNP, DNP documented in this encounterMadison Health08-20-2024 History of Present illness Narrative* Gloria White DDS - 01/13/2024 2:33 PM EDT Images from the original note were not included. [facility] CHIEF [...] history of poliomyelitis Acquired Hypothyroidism Drug-Induced Osteoporosis [id number] Rheumatic Heart Disease Mitral Stenosis With Insufficiency [...] record. Gloria White DDS documented in this encounterMadison Health08-19-2024 Nurse Note* Magdalene Coffey RN - 01/12/2024 [...] By Magdalene Coffey RN In Department: CARDIOLOGY [facility]08-19-2024 Nurse Note* Magdalene Coffey RN - 01/12/2024 [...] RN In Department: CARDIOLOGY documented in this encounterMadison Health08-12-2024 History of Present illness Narrative* Jesus Taylor [...] a 7 day TCM. Pt admitted into [facility] on 12/31/23 and discharged on 01/03/24. On [...] Pulmonary HTN, Hypothyroidism who presents to the [facility] ED on 12/31/23 with history of shortness [...] chronic diastolic CHF pulmonary hypertension and paroxysmal G-iyx-64-year-old male with a history of severe mitral [...] prn Jesus Taylor MD documented in this encounterMadison Health05-10-2024 History of Present illness Narrative* Jesus Taylor [...] MV replacement and Pulm HTN. Follows with [facility]. Denies checking BP at homeor having symptoms of chest pain, sob or dizziness. Had Echo done recently that showed his valve was not closing as well, had this replaced in past. Follows with [facility] every 6 months. [address] seeing Dr. Winslow there as his Registration Scheduling Specialist. Thyroid: Stable on current regimen of Synthroid [...] Past Histories independently gathered by the clinical family support worker and the remaining scribed note [...] AM. Moni Harden MA documented in this encounterMadison Health03-11-2024 Miscellaneous Notes* Telephone Encounter - Tyson Kyle APRN.CNP - 08/04/2023 9:41 AM EDT The following approved medication requests have been transmitted electronically. Requested Prescriptions Pending Prescriptions Disp Refills levothyroxine (SYNTHROID) 75 mcg tablet 90 tablet 3 Sig: Take one pill daily for 7 days/week Tyson Kyle APRN.CNP * Telephone Encounter - Maribel Tilley - 08/04/2023 9:23 AM EDT Pharmacy verified in [facility] Patient has been identified by name and [...] Please advise. Maribel Chaparro documented in this encounterMadison Health12-05-2023 History of Present illness Narrative* Jesus Taylor [...] chest pain, sob or dizziness. Follows with [facility]. Pt is s/p MV replacement [...] Past Histories independently gathered by the clinical family support worker and the remaining scribed note [...] AM. Moni Harden Ma documented in this encounterMadison Health05-11-2023 History of Present illness Narrative* Jesus Taylor [...] dizziness, or SOB. Follows with Cardio at [facility]. S/P MV replacement, pulm htn. [...] Past Histories independently gathered by the clinical family support worker and the remaining scribed note [...] 03, 2022 8:07 AM. documented in this encounterMadison Health03-23-2023 Miscellaneous Notes* Telephone Encounter - Tyson Kyle [...] is requesting Rx to be sent to [facility] for #90. Danya Whitman Ma documented in this encounterMadison Health02-06-2023 Evaluation note* Diagnosis Night sweats- Primary Generalized hyperhidrosis documented in this encounter [facility]02-06-2023 Miscellaneous Notes* Telephone Encounter - Moni Harden [...] suggested to him that he see an Latexer. Please advise. Danya Whitman Ma documented in this encounterMadison Health11-07-2022 History of Present illness Narrative* Jesus Taylor [...] SOB. Follows with Dr. Tarango, Cardio at [facility]. Had Echo done recently. This is monitored [...] Past Histories independently gathered by the clinical family support worker and the remaining scribed note [...] AM. Moni Harden Ma documented in this encounterMadison Health05-06-2022 History of Present illness Narrative* Jesus Taylor MD - 09/28/2021 9:20 AM EDT Chief Complaint Patient presents with: 6 Month Exam HPI Ruperto Castillo is a 85 year old male who presents here today for 6 month follow up. He has been busy renovating the [employer]. The barn is about done. No chest [...] Past Histories independently gathered by the clinical family support worker and the remaining scribed note [...] AM. Moni Harden Ma documented in this encounterMadison Health04-07-2022 Miscellaneous Notes* Telephone Encounter - Moni Harden [...] No Patient requests refill be sent [facility]. Patient wants to let provider know [...] you. Jagruti Tidwell, RN documented in this encounterMadison Health05-31-2014 History of Past illness Narrative* Problem Noted [...] of this encounter (statuses as of 08/30/2021) [facility]-31-2014 History of Past illness Narrative* Problem Noted [...] of this encounter (statuses as of 09/28/2021) [facility]2014 History of Past illness Narrative* Problem Noted [...] of this encounter (statuses as of 04/01/2022) [facility]2014 History of Past illness Narrative* Problem Noted [...] of this encounter (statuses as of 07/02/2022) [facility]2014 History of Past illness Narrative* Problem Noted [...] of this encounter (statuses as of 08/15/2022) [facility] History of Past illness Narrative* Problem Noted [...] of this encounter (statuses as of 10/03/2022) [facility]2014 History of Past illness Narrative* Problem Noted [...] of this encounter (statuses as of 04/29/2023) [facility] History of Past illness Narrative* Problem Noted [...] of this encounter (statuses as of 08/04/2023) [facility]05-01-2014 Evaluation note* Diagnosis Onset Date Resolution Status History of mitral valve repl acement with bioprosthetic valve Sep, 2013 chronic Paroxysmal atrial fibrillation chronic 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 [facility] Work Phone: Evaluation note* Diagnosis Acquired hypothyroidism Unspecified hypothyroidism documented [facility] this [facility]* Diagnosis Acquired hypothyroidism- Primary Unspecified hypothyroidism H/O mitral valve replacement Heart valve replaced by other means Chronic constipation Unspecified constipation documented in this encounter [facility] noteNo assessment information availableWMemorial Health [facility] Work Phone: Evaluation note* Diagnosis Acquired hypothyroidism- Primary Unspecified hypothyroidism Need for influenza vaccination Need for prophylactic vaccination and inoculation against influenza Chronic constipation Unspecified constipation documented [facility] this encounter [facility]* Diagnosis Acquired hypothyroidism Unspecified hypothyroidism documented in this encounter [facility]* Diagnosis Acquired hypothyroidism- Primary Unspecified hypothyroidism Chronic constipation Unspecified constipation H/O mitral valve replacement Heart valve replaced by other means Pulmonary hypertension (HCC) Other chronic pulmonary heart diseases documented in this encounter [facility]* Diagnosis Pulmonary hypertension (HCC)- Primary Other chronic pulmonary heart diseases Chronic constipation Unspecified constipation Rheumatic heart disease Rheumatic heart disease, unspecified H/O mitral valve replacement Heart valve replaced by other means Acquired hypothyroidism Unspecified hypothyroidism Need for influenza vaccination Need for prophylactic vaccination and inoculation against influenza documented in this encounter [facility]* Diagnosis Acquired hypothyroidism Unspecified hypothyroidism documented in this encounter [facility]* Diagnosis Acquired hypothyroidism- Primary Unspecified hypothyroidism Pulmonary hypertension (HCC) Other chronic pulmonary heart diseases H/O mitral valve replacement Heart valve replaced by other means Rheumatic heart disease Rheumatic heart disease, unspecified Chronic constipation Unspecified constipation Drug-induced osteoporosis Other osteoporosis documented in this encounter [facility]* Diagnosis Hospital discharge follow-up- Primary Other follow-up examination Acute exacerbation of chronic heart failure (HCC) H/O mitral valve replacement Heart valve replaced by other means documented in this encounter [facility]* Diagnosis History of mitral valve replacement with bioprosthetic valve- Primary Heart valve replaced by other means documented in this encounter [facility]* Diagnosis History of mitral valve replacement with bioprosthetic valve- Primary Heart valve replaced by other means Pre-operative clearance Preoperative examination, unspecified Prosthetic mitral valve failure requiring replacement Valvular heart disease Endocarditis, valve unspecified, unspecified cause documented in this encounter [facility]* Diagnosis Hospital discharge follow-up- Primary Other follow-up examination Pacemaker Cardiac pacemaker in situ H/O mitral valve replacement Heart valve replaced by other means Pacemaker reprogramming/check Fitting and adjustment of cardiac pacemaker documented in this encounter [facility]* Diagnosis Essential hypertension- Primary Unspecified essential hypertension Mixed hyperlipidemia S/P transcatheter mitral valve replacement (TMVR) Pacemaker Cardiac pacemaker in situ Complete heart block (HCC) Atrioventricular block, complete documented in this encounter [facility]* Diagnosis Pacemaker reprogramming/check Fitting and adjustment of cardiac pacemaker [facility] Diagnosis Acquired hypothyroidism- Primary Unspecified hypothyroidism Drug-induced osteoporosis Other osteoporosis H/O mitral valve replacement Heart valve replaced by other means Pacemaker Cardiac pacemaker in situ Encounter for immunization Need for other specified prophylactic vaccination against single bacterial disease [facility]* Diagnosis Cellulitis of skin- Primary Cellulitis and abscess of unspecified site Hypertensive heart disease with heart failure (HCC) Unspecified hypertensive heart disease with heart failure Complete heart block (HCC) Atrioventricular block, complete documented in this encounter [facility]* Diagnosis Contact dermatitis, unspecified contact dermatitis type, unspecified trigger- Primary Follicular eczema Other specified disease of hair and hair follicles Cellulitis of skin Cellulitis and abscess of unspecified site [facility]* Diagnosis S/P MVR (mitral valve replacement)- Primary Heart valve replaced by other means CHB (complete heart block) (HCC) Atrioventricular block, complete documented in this encounter [facility]* Diagnosis Acquired hypothyroidism Unspecified hypothyroidism documented in this encounter [facility]* Diagnosis Acquired hypothyroidism- Primary Unspecified hypothyroidism [...] malignant neoplasms, colon documented in this encounter [facility]* Diagnosis Family history of colon cancer in father- Primary Screening for colon cancer Special screening for malignant neoplasms, colon History of colonic polyps Personal history of colonic polyps documented in this encounter [facility]* Diagnosis Encounter for screening for malignant neoplasm of colon- Primary Special screening for malignant neoplasms, colon Screening for colon cancer Special screening for malignant neoplasms, colon Family history of colon cancer in father History of colonic polyps Personal history of colonic polyps documented in this encounter [facility]* Diagnosis Multiple adenomatous polyps- Primary Benign neoplasm of unspecified site documented in this encounter [facility]* Diagnosis Onset Date Resolution Status Admit Date Complete heart block by electrocardiogram acute December 09 8:50am Presence of cardiac pacemaker acute December 09, 2024 8:50am S/P transcatheter mitral carlos ve replacement (TMVR) acute December 09 8:50am Paroxysmal atrial fibrillation chron ic December 09, 2024 8:50am [place] [facility] Work Phone: Reason for referral (narrative)* Outpatient Procedure (Routine) - Closed Specialty Diagnoses / Procedures Referred By Felipe lopez Referred To Contact [facility] Diagnoses Pacemaker reprogramming/check Procedures CARDIAC IMPLANTABLE DEVICE CHECK Card Ep Device Clinic [address] [place] [address] [address] Referral ID Status Reason Start Date Expiration Date V isits Requested Visits Authorized [id number] Closed Auto-Generate d Referral 01/22/2024 01/21/2025 [facility] Transition of Care (Routine) - Authorized Specialty Diagnoses / Procedures Referred By Felipe lopez Referred To Contact [facility] Procedures CARDIOVASCULAR MEDICINE OP FOLLOW UP APPT ORDER Winifred Vallejo MD [address] [place] [address] Phone: tel: fax: [facility] [address] [place] [phone] Referral ID Status Reason Start Date Expiration Date Visits Requested Visits Authorized [id number] Authorized PCP Requested Referral 07/21/2024 07/21/2025 1 1 [facility] for referral (narrative)No reason for referral information availableWMemorial [facility] Work Phone: Reason for visit Narrative* Outpatient Procedure (Routine) - Closed Specialty Diagnoses / Procedures Referred By Contac t Referred To Contact [facility] Diagnoses Pacemaker reprogramming/check Procedures CARDIAC IMPLANTABLE DEVICE CHECK Card Ep Device Clinic [facility] [address] [place] [address] [place] [phone] Referral ID Status Reason Start Date Expiration Date V isits Requested Visits Authorized [id number] Closed Auto-Generate d Referral 01/22/2024 01/21/2025 1 1 [facility] for visit Narrative* Outpatient Procedure (Routine) - Closed Specialty Diagnoses / Procedures Referred By Contvinayak t Referred To Contact [facility] Diagnoses Screening for colon cancer Family history of colon cancer in father History of colonic polyps Procedures COLONOSCOPY SCREENING COLONOSCOPY FLX DX W/COLLJ SPEC WHEN Pennie Nguyen APRN.LATONYA [address] [facility] [place] [address] Phone: tel: fax: Fritz Pope MD [address] [place] [address] Phone: tel: fax: Referral ID Status Reason Start Date Expiration Date V isits Requested Visits Authorized [id number] Closed Auto-Generate d Referral 11/01/2024 01/31/2025 1 1 [facility] Advance Directives Date Activated Date Inactivated Comments 01/08/2024 7:25 PM 01/23/2024 10:25 PM Question Answer Comments Full Code Order Discussed With: Patient Documents on File Type Date Recorded 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 No January 05, 2024 9:58am Advance Directives [...] Night sweats Procedures CONSULT TO ENDOCRINOLOGY OFFICE/OUTPATIENT [facility] 60-74 MINUTES Jesus Taylor MD [address] [place] [address] Referral ID Status Reason Start Date Expiration Date Visits Requested Visits Authorized [id number] Pending Review PCP Requested Referral 07/01/2022 07/01/2023 1 1 Specialty Diagnoses / Procedures Referred By Contac t Referred To Contact [facility] Procedures CARDIOVASCULAR MEDICINE OP FOLLOW UP APPT ORDER Lalita Perkins APRN.HANSARD REPORTER [address] [place] [address] [facility] [address] [place] [address] Referral ID Status Reason Start Date Expiration Date Visits Requested Visits Authorized [id number] Ref Not Required PCP Requested Referral 05/26/2024 02/23/2025 1 1 Specialty Diagnoses / Procedures Referred By Contac t Referred [facility] Diagnoses Essential hypertension Mixed hyperlipidemia S/P transcatheter mitral valve replacement (TMVR) Procedures ECHO ECHO TTHRC R-T 2D W/WOM-MODE COMPL SPEC&COLR D PerkinsLalita, HOCKEY INSTRUCTOR.HANSARD REPORTER [address] [place] [address] [facility] [address] [place] [address] Referral ID Status Reason Start Date Expiration Date Visits Requested Visits Authorized [id number] New Request Auto-Generat ed Referral 02/24/2024 02/23/2025 1 1 Specialty Diagnoses / Procedures Referred By Contac t Referred To Contact [facility] Diagnoses Essential hypertension Mixed hyperlipidemia S/P transcatheter mitral valve replacement (TMVR) Procedures ECG COMPLETE ECG ROUTINE ECG W/LEAST 12 LDS W/I&R Lalita Perkins, HOCKEY INSTRUCTOR.HANSARD REPORTER [address] [place] [address] [facility] [address] [place] [address] Referral ID Status Reason Start Date Expiration Date Visits Requested Visits Authorized [id number] New Request Auto-Generat ed Referral 02/24/2024 02/23/2025 1 1 Summary Purpose Additional Source Comments Source Comments (unrecognize d section and content) In the event this informatio n is protected by the Federal Confidentiality of Alcohol and Drug Abuse Patient Records regulations: The Federal rules restrict any use of the information to criminally investigate or prosecute any alcohol or drug abuse patient.[facility] the event this information is protected by the Federal Confidentiality of Alcohol and Drug Abuse Patient Records regulations: The Federal rules restrict any use of the information to criminally investigate or prosecute any alcohol or drug abuse patient.[facility] HealthIn the event this information is protected by the Federal Confidentiality of Alcohol and Drug Abuse Patient Records regulations: The Federal rules restrict any use of the information to criminally investigate or prosecute any alcohol or drug abuse patient.[facility] HealthIn the event this information is protected by the Federal Confidentiality of Alcohol and Drug Abuse Patient Records regulations: The Federal rules restrict any use of the information to criminally investigate or prosecute any alcohol or drug abuse patient.[facility] HealthIn the event this information is protected by the Federal Confidentiality of Alcohol and Drug Abuse Patient Records regulations: The Federal rules restrict any use of the information to criminally investigate or prosecute any alcohol or drug abuse patient.[facility] HealthIn the event this information is protected by the Federal Confidentiality of Alcohol and Drug Abuse Patient Records regulations: The Federal rules restrict any use of the information to criminally investigate or prosecute any alcohol or drug abuse patient.[facility] HealthIn the event this information is protected by the Federal Confidentiality of Alcohol and Drug Abuse Patient Records regulations: The Federal rules restrict any use of the information to criminally investigate or prosecute any alcohol or drug abuse patient.[facility] HealthIn the event this information is protected by the Federal Confidentiality of Alcohol and Drug Abuse Patient Records regulations: The Federal rules restrict any use of the information to criminally investigate or prosecute any alcohol or drug abuse patient.[facility] HealthIn the event this information is protected by the Federal Confidentiality of Alcohol and Drug Abuse Patient Records regulations: The Federal rules restrict any use of the information to criminally investigate or prosecute any alcohol or drug abuse patient.[facility] HealthIn the event this information is protected by the Federal Confidentiality of Alcohol and Drug Abuse Patient Records regulations: The Federal rules restrict any use of the information to criminally investigate or prosecute any alcohol or drug abuse patient.[facility] HealthIn the event this information is protected by the Federal Confidentiality of Alcohol and Drug Abuse Patient Records regulations: The Federal rules restrict any use of the information to criminally investigate or prosecute any alcohol or drug abuse patient.[facility] HealthIn the event this information is protected by the Federal Confidentiality of Alcohol and Drug Abuse Patient Records regulations: The Federal rules restrict any use of the information to criminally investigate or prosecute any alcohol or drug abuse patient.[facility] HealthIn the event this information is protected by the Federal Confidentiality of Alcohol and Drug Abuse Patient Records regulations: The Federal rules restrict any use of the information to criminally investigate or prosecute any alcohol or drug abuse patient.[facility] HealthIn the event this information is protected by the Federal Confidentiality of Alcohol and Drug Abuse Patient Records regulations: The Federal rules restrict any use of the information to criminally investigate or prosecute any alcohol or drug abuse patient.[facility] HealthIn the event this information is protected by the Federal Confidentiality of Alcohol and Drug Abuse Patient Records regulations: The Federal rules restrict any use of the information to criminally investigate or prosecute any alcohol or drug abuse patient.[facility] HealthIn the event this information is protected by the Federal Confidentiality of Alcohol and Drug Abuse Patient Records regulations: The Federal rules restrict any use of the information to criminally investigate or prosecute any alcohol or drug abuse patient.[facility] HealthIn the event this information is protected by the Federal Confidentiality of Alcohol and Drug Abuse Patient Records regulations: The Federal rules restrict any use of the information to criminally investigate or prosecute any alcohol or drug abuse patient.[facility] HealthIn the event this information is protected by the Federal Confidentiality of Alcohol and Drug Abuse Patient Records regulations: The Federal rules restrict any use of the information to criminally investigate or prosecute any alcohol or drug abuse patient.[facility] HealthIn the event this information is protected by the Federal Confidentiality of Alcohol and Drug Abuse Patient Records regulations: The Federal rules restrict any use of the information to criminally investigate or prosecute any alcohol or drug abuse patient.[facility] HealthIn the event this information is protected by the Federal Confidentiality of Alcohol and Drug Abuse Patient Records regulations: The Federal rules restrict any use of the information to criminally investigate or prosecute any alcohol or drug abuse patient.[facility] HealthIn the event this information is protected by the Federal Confidentiality of Alcohol and Drug Abuse Patient Records regulations: The Federal rules restrict any use of the information to criminally investigate or prosecute any alcohol or drug abuse patient.[facility] HealthIn the event this information is protected by the Federal Confidentiality of Alcohol and Drug Abuse Patient Records regulations: The Federal rules restrict any use of the information to criminally investigate or prosecute any alcohol or drug abuse patient.[facility] HealthIn the event this information is protected by the Federal Confidentiality of Alcohol and Drug Abuse Patient Records regulations: The Federal rules restrict any use of the information to criminally investigate or prosecute any alcohol or drug abuse patient.[facility] HealthIn the event this information is protected by the Federal Confidentiality of Alcohol and Drug Abuse Patient Records regulations: The Federal rules restrict any use of the information to criminally investigate or prosecute any alcohol or drug abuse patient.[facility] HealthIn the event this information is protected by the Federal Confidentiality of Alcohol and Drug Abuse Patient Records regulations: The Federal rules restrict any use of the information to criminally investigate or prosecute any alcohol or drug abuse patient.[facility] HealthIn the event this information is protected by the Federal Confidentiality of Alcohol and Drug Abuse Patient Records regulations: The Federal rules restrict any use of the information to criminally investigate or prosecute any alcohol or drug abuse patient.[facility] HealthIn the event this information is protected by the Federal Confidentiality of Alcohol and Drug Abuse Patient Records regulations: The Federal rules restrict any use of the information to criminally investigate or prosecute any alcohol or drug abuse patient.[facility] HealthIn the event this information is protected by the Federal Confidentiality of Alcohol and Drug Abuse Patient Records regulations: The Federal rules restrict any use of the information to criminally investigate or prosecute any alcohol or drug abuse patient.[facility] HealthIn the event this information is protected by the Federal Confidentiality of Alcohol and Drug Abuse Patient Records regulations: The Federal rules restrict any use of the information to criminally investigate or prosecute any alcohol or drug abuse patient.[facility] HealthIn the event this information is protected by the Federal Confidentiality of Alcohol and Drug Abuse Patient Records regulations: The Federal rules restrict any use of the information to criminally investigate or prosecute any alcohol or drug abuse patient.[facility] HealthIn the event this information is protected by the Federal Confidentiality of Alcohol and Drug Abuse Patient Records regulations: The Federal rules restrict any use of the information to criminally investigate or prosecute any alcohol or drug abuse patient.[facility] HealthIn the event this information is protected by the Federal Confidentiality of Alcohol and Drug Abuse Patient Records regulations: The Federal rules restrict any use of the information to criminally investigate or prosecute any alcohol or drug abuse patient.[facility] HealthIn the event this information is protected by the Federal Confidentiality of Alcohol and Drug Abuse Patient Records regulations: The Federal rules restrict any use of the information to criminally investigate or prosecute any alcohol or drug abuse patient.[facility] HealthIn the event this information is protected by the Federal Confidentiality of Alcohol and Drug Abuse Patient Records regulations: The Federal rules restrict any use of the information to criminally investigate or prosecute any alcohol or drug abuse patient.[facility] HealthIn the event this information is protected by the Federal Confidentiality of Alcohol and Drug Abuse Patient Records regulations: The Federal rules restrict any use of the information to criminally investigate or prosecute any alcohol or drug abuse patient.[facility] Reason for Visit (unrecogniz ed section and [...] EVAL AND TREAT - [facility] [address] [place] [address] Referral ID Status Reason Start Date Expiration Date Visits Re quested Visits Authorized [id number] 1 1 Reason Onset Date Comments Transition [...] Referred By Contac t Referred To Contact [facility] Procedures CARDIOVASCULAR MEDICINE OP FOLLOW UP APPT ORDER Lalita Perkins, ARON.HANSARD REPORTER [address] [place] [address] Phone: tel: fax: [facility] [address] [place] [address] Referral ID Status Reason Start Date Expiration Date V isits Requested Visits Authorized [id number] Closed PCP Requested Referral 05/26/2024 02/23/2025 1 1 Reason Onset Date Comments Refill Request 08/04/2024 Reason Comments Consult Reason Comments F/U 6 Month Reason Comments Consult Here for colonoscopy D/T previous polyps Specialty Diagnoses / Procedures Referred By Contac t Referred To Contact General Surgery Diagnoses Screening for colon cancer Procedures CONSULT TO GENERAL SURGERY OFFICE/OUTPATIENT [facility] 60 MINUTES Jesus Taylor MD [address] [place] [address] Phone: tel: fax: Referral ID Status Reason Start Date Expiration Date V isits Requested Visits Authorized [id number] Closed PCP Requested Referral 10/05/2024 10/05/2025 1 1 Reason Comments Follow Up FU to colonoscopy Care Teams (unrecognized sec tion and content) Seo Strategist Relationship Specialty Start Date End Date Jesus Taylor MD [address] [place] [address] PCP - General 01/26/09 Seo Strategist Relationship Specialty Start Date End Date Jesus Taylor MD [address] [place] [address] PCP - General 01/26/09 Seo Strategist Relationship Specialty Start Date End Date Jesus Taylor MD [address] [place] [address] PCP - General 01/26/09 Seo Strategist Relationship Specialty Start Date End Date Jesus Taylor MD [address] [place] [address] PCP - General 01/26/09 Seo Strategist Relationship Specialty Start Date End Date Jesus Taylor MD [address] [place] [address] PCP - General 01/26/09 Seo Strategist Relationship Specialty Start Date End Date Jesus Taylor MD [address] [place] [address] PCP - General 01/26/09 Seo Strategist Relationship Specialty Start Date End Date Jesus Taylor MD [address] [place] [address] PCP - General 01/26/09 Seo Strategist Relationship Specialty Start Date End Date Jesus Taylor MD [address] [place] [address] PCP - General 01/26/09 Team Status: Active [...] PA Attending Provider, Referr ing Provider Active Seo Strategist Relationship Specialty Start Date End Date Jesus Taylor MD [address] [place] [address] PCP - General 01/26/09 Seo Strategist Relationship Specialty Start Date End Date Jesus Taylor MD [address] [place] [address] PCP - General 01/26/09 Seo Strategist Relationship Specialty Start Date End Date Jesus Taylor MD [address] [place] [address] PCP - General 01/26/09 Seo Strategist Relationship Specialty Start Date End Date Jesus Taylor MD [address] [place] [address] PCP - General 01/26/09 Seo Strategist Relationship Specialty Start Date End Date Jesus Taylor MD [address] [place] [address] PCP - General 01/26/09 Seo Strategist Relationship Specialty Start Date End Date Jesus Taylor MD [address] [place] [address] PCP - General 01/26/09 Geoffrey Graham MD Assembler Radio [employer] Electrical 01/23/24 02/05/24 Seo Strategist Relationship Specialty Start Date End Date Jesus Taylor MD [address] [place] [address] PCP - General 01/26/09 Geoffrey Graham MD [employer] 01/23/24 02/05/24 Seo Strategist Relationship Specialty Start Date End Date Jesus Taylor MD [address] [place] [address] PCP - General 01/26/09 ProviderGeoffrey MD As[employer] 01/23/24 02/05/24 Seo Strategist Relationship Specialty Start Date End Date Jesus Taylor MD [address] [place] [address] PCP - General 01/26/09 Seo Strategist Relationship Specialty Start Date End Date Jesus Taylor MD [address] [place] [address] PCP - General 01/26/09 Seo Strategist Relationship Specialty Start Date End Date Jesus Taylor MD [address] [place] [address] PCP - General 01/26/09 Seo Strategist Relationship Specialty Start Date End Date Jesus Taylor MD [address] [place] [address] PCP - General 01/26/09 Seo Strategist Relationship Specialty Start Date End Date Jesus Taylor MD [address] [place] [address] PCP - General 01/26/09 Seo Strategist Relationship Specialty Start Date End Date Jesus Taylor MD [address] [place] [address] PCP - General 01/26/09 Codie Mann APRN.CNP [address] [place] [address] [facility] 05/02/24 Tyson Kyle APRN.HANSARD REPORTER [address] [facility] [address] [facility] 05/11/24 Seo Strategist Relationship Specialty Start Date End Date Jesus Taylor MD [address] [place] [address] PCP - General 01/26/09 Codie Mann APRN.HANSARD REPORTER [address] [place] [address] [facility] 05/02/24 Tyson Kyle APRN.HANSARD REPORTER [address] [place] [address] [facility] 05/11/24 Seo Strategist Relationship Specialty Start Date End Date Jesus Taylor MD [address] [place] [address] PCP - General 01/26/09 Codie Mann APRN.HANSARD REPORTER [address] [place] [address] [facility] 05/02/24 Tyson Kyle APRN.HANSARD REPORTER [address] [place] [address] [facility] 05/11/24 Seo Strategist Relationship Specialty Start Date End Date Jesus Taylor MD [address] [facility] [place] [address] PCP - General 01/26/09 Codie Mann APRN.HANSARD REPORTER [address] [facility] [place] [address] [employer] [facility] 05/02/24 Tyson Kyle APRN.HANSARD REPORTER [address] [facility] [place] [address] [employer] [facility] 05/11/24 Seo Strategist Relationship Specialty Start Date End Date Jesus Taylor MD [address] [facility] [address] PCP - General 01/26/09 Codie Mann APRN.HANSARD REPORTER [address] [facility] [place] [address] [employer] [facility] 05/02/24 Tyson Kyle APRN.HANSARD REPORTER [address] [facility] [place] [address] [employer] Family [facility] 05/11/24 Seo Strategist Relationship Specialty Start Date End Date Jesus Taylor MD [address] [facility] [address] PCP - General 01/26/09 Codie Mann APRN.HANSARD REPORTER [address] [facility] [address] [employer] [facility] 05/02/24 Tyson Kyle APRN.HANSARD REPORTER [address] [place] [address] [employer] [facility] 05/11/24 Seo Strategist Relationship Specialty Start Date End Date Jesus Taylor MD [address] [place] [address] PCP - General 01/26/09 Codie Mann, HOCKEY INSTRUCTOR.HANSARD REPORTER [address] [place] [address] [facility] 05/[facility]/24 Tyson Kyle, HOCKEY INSTRUCTOR.HANSARD REPORTER [address] [place] [address] [facility] 05/11/24 Seo Strategist Relationship Specialty Start Date End Date Jesus Taylor MD [address] [place] [address] PCP - General 01/26/09 Tyson Kyle, HOCKEY INSTRUCTOR.HANSARD REPORTER [address] [place] [address] [facility] 05/11/24 Seo Strategist Relationship Specialty Start Date End Date Jesus Taylor MD [address] [place] [address] PCP - General 01/26/09 Tyson Kyle, HOCKEY INSTRUCTOR.HANSARD REPORTER [address] [place] [address] [facility] 05/11/24 Team Status: Inactive Member Role Status [...] Role/Relationship Status Dates Dr. Jesus Taylor MD Family [...] December 09, 2024 End: December 09, 2024 Shnatel FENTON PA Attending Provider Active Start: December 09, 2024 End: December 09, 2024 Seo Strategist Relationship Specialty Start Date End Date Jesus Taylor MD [address] [place] [address] PCP - General 01/26/09 Tyson Kyle APRN.HANSARD REPORTER [address] [place], [place] [address] [employer] [facility] 05/11/24 Team Status: Active Member [...] section and content) DATE CREATED AUTHOR 03/19/2025 [facility] DATE CREATED AUTHOR 'S NAREN ATSG 03/23/2025 [facility] FOR RECORDS PERTAINING TO PATIENTS WHO [...] BE BASED ON THE PRIMARY CLINICAL RECORDS. [facility] [employer] [facility]. provides no warranty or guarantee of the accuracy or completeness of information in this document.
[2025-03-25 06:12] LABS: Magnesium 2.3 mg/dL (1.5-2.2)
--- NOTE | 2025-03-25 06:30 | MRI_ITS ---
PROCEDURE: BRAIN WITHOUT CONTRAST 03/25/2025 REASON FOR EXAM: TIA/CVA TECHNIQUE: Procedure Code: MRIBR Modality: MR Procedure: BRAIN WITHOUT CONTRAST Multiplanar and multisequence images were obtained. COMPARISON: March 25 FINDINGS: Brain: No hemorrhage, mass or acute ischemia seen. No extra-axial collection, midline shift or mass effect. T2 prolongation in the periventricular white matter. Patchy T2 prolongation in the deep white matter. Small focus of encephalomalacia and lacunar type infarct in the right polo radiata. Ventricles: Mild volume loss commensurate with age. Major Intracranial Vessels: Correlate with CTA done the same day Sinuses: Mucosal thickening ethmoid sinuses. Mucosal thickening left sphenoid sinus. Circumferential mucosal thickening right maxillary sinus. Mastoids: Partial opacification right mastoid air cells inferiorly. MRI/Brain without Contrast IMPRESSION: 1. No evidence of acute ischemia at this time. 2. Mild changes of chronic microvascular ischemia. Reading Location: [id number]
--- NOTE | 2025-03-25 06:30 | ECHOD_ITS ---
Reason For Study Reason For Study: TIA/CVA Procedure This was a 2D Doppler, Color Flow transthoracic echocardiogram. Exam performed portable in patient room. Left Ventricle Normal LV size. The left ventricular ejection fraction is 60 %. No regional wall motion abnormalities noted. Right Ventricle Mildly dilated right ventricle. ICD or pacer leads identified within the right ventricle. Normal systolic function. Atria The left atrium is severely enlarged. Normal right atrium. Mitral Valve Peak transmitral valve gradient 13 mmHg. Mean transmitral valve gradient 6 mmHg. Stable appearing bioprosthetic mitral valve apparatus. Tricuspid Valve Normal tricuspid valve. Mild-Moderate (1-2+) tricuspid valve insufficiency. Pulmonary artery systolic pressure is 30 mmHg. Aortic Valve Trisinus/trileaflet aortic valve. Mild focal aortic valve calcification. Great Vessels Normal aortic root. The pulmonary artery is normal size. Inferior vena cava collapse with respiration. Pericardium/Pleural No pericardial effusion. MMode/2D Measurements & Calculations LVIDd: 4.1 cm IVSd: 0.97 cm LVOT diam: 2.0 cm LVIDs: 2.5 cm LVPWd: 0.88 cm LVOT area: 3.3 cm2 RVDd: 3.9 cm FS: 38.2 % Ao root diam: 3.6 cm LAV(MOD-bp): 124.0 ml LVAd ap4: 27.5 cm2 LAV(MOD-bp) Indexed: 70.3 ml/m2 LVLd ap4: 7.5 cm LAV(MOD-sp2): 105.6 ml EDV(MOD-sp4): 86.6 ml LAV(MOD-sp4): 144.5 ml EDV(sp4-el): 85.7 ml LVAs ap4: 15.7 cm2 LVLs ap4: 6.5 cm ESV(MOD-sp4): 34.4 ml ESV(sp4-el): 32.5 ml EF(MOD-sp4): 60.2 % EF(sp4-el): 62.1 % SV(MOD-sp4): 52.2 ml SV(MOD-sp2): 31.0 ml LVAd ap2: 22.4 cm2 LVLd ap2: 7.2 cm SI(MOD-sp4): 29.6 ml/m2 SI(MOD-sp2): 17.6 ml/m2 EDV(MOD-sp2): 57.0 ml EDV(sp2-el): 59.4 ml LVAs ap2: 13.8 cm2 LVLs ap2: 6.4 cm ESV(MOD-sp2): 25.9 ml ESV(sp2-el): 25.5 ml EF(MOD-sp2): 54.5 % SV(sp4-el): 53.2 ml LA A4 area: 34.1 cm2 LA dimension(2D): 5.6 cm TAPSE: 1.1 cm RA A4 area: 15.5 cm2 Time Measurements MV dec time: 0.48 sec Doppler Measurements & Calculations MV E max abhinav: 146.6 cm/sec MV V2 max: 183.9 cm/sec MV A max abhinav: 144.1 cm/sec MV max P.5 mmHg MV dec slope: 310.0 cm/sec2 MV E/A: 1.0 MV V2 mean: 115.2 cm/sec MV mean P.0 mmHg MV V2 VTI: 62.6 cm MVA(VTI): 1.1 cm2 Ao V2 max: 226.1 cm/sec LV V1 max: 121.0 cm/sec SV(LVOT): 70.7 ml Ao max P.5 mmHg LV V1 max P.9 mmHg Ao V2 mean: 161.5 cm/sec LV V1 mean P.5 mmHg Ao mean P.8 mmHg LV V1 mean: 68.6 cm/sec Ao V2 VTI: 50.1 cm LV V1 VTI: 21.5 cm AV (velocity ratio): 0.43 COLIN(I,D): 1.4 cm2 COLIN(V,D): 1.8 cm2 PA V2 max: 76.2 cm/sec TR max abhinav: 263.3 cm/sec TR max P.7 mmHg ECHO/Echo Complete Interpretation Summary Normal LV size. The left ventricular ejection fraction is 60 %. Stable appearing bioprosthetic mitral valve apparatus. Mean transmitral valve gradient 6 mmHg. The left atrium is severely enlarged. Pulmonary artery systolic pressure is 30 mmHg. The previous the above parameters appear unchanged. Ordering Physician: Lucila Matt Referring Physician: Nickolas Taylor Performed By: David Pickett RDCS
[2025-03-25] MEDS: 0.9% Normal Saline (1000mL) 1,000 ML 75 ML IV (06:47)
[2025-03-25] MEDS: 0.9% Saline Lock 10 ML Syringe IV (06:47)
[2025-03-25 06:50] LABS: Troponin T High Sens 2 HR 17 ng/L (<=22)
[2025-03-25 09:28] LABS: Cholesterol 173 mg/dL (<=200); Low Density Lipoprotein Calc. 111 mg/dL; Triglycerides 71 mg/dL; Very Low Density Lipoprotein 14 mg/dL (5-40); cholesterol:hdl ratio screen 3.56
[2025-03-25 09:30] LABS: Troponin T High Sens 4 HR 17 ng/L (<=22)
--- NOTE | 2025-03-25 13:14 | NEURO.PNOTE ---
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 CT head- no acute intracranial process. CTA- right distal [employer] TECH occlusion. A1c-5.3. LDL-111. TTE- EF-60% with severely enlarged LA. Diagnosis: Concern for TIA/MRI negative stroke Plan: ASA and statin. Would recommend AC given h/o paroxysmal Afib if there is no obvious contraindication. 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 Please call for any questions. I personally attended this patient and spent a total time of 35 minutes evaluating this patient including clinical assessment, review of chart, medical history imaging, and determining appropriate treatment and workup. Subject: Neurology Subjective No acute events overnight. he still c/o numbness in left face. At baseline, mild weakness in left side mainly LUE with possible contracture EEG Results Procedure Details EEG Procedure Details: FUAD PURVIS is a 89 year old M with a past medical history of , who presents for evaluation of Electroencephalogram on DATE at TIME Objective Data Objective Data Vital Signs: Vital Signs Temp Pulse Resp BP Pulse Ox O2 Del Method 97.9 F 113 H 16 122/63 H 98 Room Air 03/25/25 10:30 03/25/25 10:30 03/25/25 10:30 03/25/25 10:30 03/25/25 10:30 03/25/25 10:30 Oxygen Delivery Method Room Air Weight: 67.6 kg Body Mass Index (BMI) 24.0 Lab / Micro Data 03/25/25 04:23 03/25/25 04:23 Labs: Laboratory Results - last 24 hr 03/25/25 04:23: WBC 6.3, RBC 4.49 L, Hgb 14.1, Hct 42.3, MCV 94.2 H, MCH 31.4, MCHC 33.3, RDW Std Deviation 46.2 H, RDW Coeff of Chhaya 13.3, Plt Count 122 L, MPV 10.0, Immature Gran % (Auto) 0.300, Neut % (Auto) 55.7, Lymph % (Auto) 28.5, [place] % (Auto) 10.7 H, Eos % (Auto) 4.0, Baso % (Auto) 0.8, Absolute Neuts (auto) 3.5, Absolute Lymphs (auto) 1.78, Nucleated RBC % 0, PT 14.2, INR 1.1, APTT 29.9, Sodium 138, Potassium 4.1, Chloride 104, Carbon Dioxide 25.1, Anion Gap 10, BUN 26 H, Creatinine 1.15, Estim Creat Clear Calc 40.84 L, Est GFR (MDRD) Non-Af 62, BUN/Creatinine Ratio 22.9 H, Glucose 98, Hemoglobin A1c 5.6, Calcium 9.1, Magnesium 2.3 H, Troponin T High Sens 19, TSH 1.590 03/25/25 04:30: POC Glucose 83 03/25/25 06:19: Troponin T Hi Sens 2 Hr 17 03/25/25 08:28: Troponin T Hi Sens 4Hr 17, Triglycerides 71, Cholesterol 173, LDL Cholesterol, Calc 111, VLDL Cholesterol 14, HDL Cholesterol 49, Cholesterol/HDL Ratio 3.56 Radiography Diagnostic Testing: Radiology Impression Brain CT 03/25/25 04:28 IMPRESSION: No CT evidence for an acute brain abnormality. I discussed the findings with Fritz Ortiz in the emergency department at 4:50 a.m. EST. Reading Location: [place] [address] Head/Neck CTA 03/25/25 04:29 IMPRESSION: Atherosclerosis. 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 The right posterior cerebral artery is not opacified distal to this level. I discussed the findings with Dr. Fritz Kendall in the emergency department at 5:40 a.m. EST. Reading Location: [place] [address] Physical Exam Narrative General: The patient appears nutritionally appropriate, well-groomed, and appears comfortable in no acute distress. Mental Status:? The patient?s mental status was normal including orientation.? Language was intact.? Cranial nerves:? Visual thrasher full, and extra-ocular motion was intact. Symmetric face. Decrease sensation in left face noticed Motor: Normal strength in all extremities. Sensation: Intact to touch in all extremities other than decrease sensation in left face.? Coordination:? Bilateral finger to nose was normal.? There was no dysmetria. Gait:? deferred. NIHSS NIHSS Nursing Documentation NIHSS Nursing Documentation: NIHSS: Ischemic Stroke/TIA Start: 03/25/25 06:30 Text: For PCU Patients: NIH and Neuro Check every 4 Status: Active hours, PRN and with change in RN caregiver. Freq: [id number] Protocol: Activity Type Activity Date Activity User E-sign Co-sign Detail Recorded Client Recorded Date Recorded By Document 03/25/25 06:30 [id number] 03/25/25 06:52 03/25/25 06:30 NIH Stroke Scale [NIHSS] A score of 0 is normal or asymptomatic . Total possible score is 42. Inpatient: RN or Physician to activate a stroke alert for onset of new stroke symptoms or with NIHSS increase >/= 3 points. Following change in neurological status, NIHSS will be performed per physician order or more frequently PRN. -1a. Level of Consciousness 0 - Alert; keenly responsive -1b. LOC Questions 0 - Answers BOTH questions correctly -1c. LOC Commands 0 - Performs BOTH tasks correctly -2. Best Gaze 0 - Normal -3. Visual 0 - No visual loss -4. Facial Palsy 0 - Normal symmetrical movements -5a. Left Arm 0 - No drift; arm holds 90 ( or 45) degrees for full 10 seconds -5b. Right Arm 0 - No drift; arm holds 90 ( or 45) degrees for full 10 seconds -6a. Left Leg 0 - No drift; leg holds 30- degree position for full 5 seconds -6b. Right Leg 0 - No drift; leg holds 30- degree position for full 5 seconds -7. Limb Ataxia 0 - Absent -8. Sensory 1 - Mild-to- moderate sensory loss; -9. Best Language 0 - No aphasia; normal -10. Dysarthria 0 - Normal -11. Extinction and Inattention 0 - No abnormality -Total 1 Query Text:A score of 0 is normal or asymptomatic. Total possible score is 42 . ED: Notify Physician for NIHSS increase by > / = 3 points. Inpatient: RN or Physician to activate a stroke alert for NIHSS increase of > / = 3 points. Coma Scale [Assess] -Eye Opening Spontaneous -Motor Obeys Commands -Verbal Oriented [Total] -Coma Scale Total 15 NIHSS 1a. Level of Consciousness: 0 - Alert; keenly responsive 1b. LOC Questions: 0 - Answers BOTH questions correctly 1c. LOC Commands: 0 - Performs BOTH tasks correctly 2. Best Gaze: 0 - Normal 3. Visual: 0 - No visual loss 4. Facial Palsy: 0 - Normal symmetrical movements 5a. Left Arm: 0 - No drift; arm holds 90 (or 45) degrees for full 10 seconds 5b. Right Arm: 0 - No drift; arm holds 90 (or 45) degrees for full 10 seconds 6a. Left Le - No drift; leg holds 30-degree position for full 5 seconds 6b. Right Le - No drift; leg holds 30-degree position for full 5 seconds 7. Limb Ataxia: 0 - Absent 8. Sensory: 1 - Dgny-cg-[id number] sensory loss; 9. Best Language: 0 - No aphasia; normal 10. Dysarthria: 0 - Normal 11. Extinction and Inattention: 0 - No abnormality Total: 1
--- NOTE | 2025-03-25 15:31 | CASEMGMT ---
ALEXANDRA Met with patient to complete ALEXANDRA form. ALEXANDRA form and its content were verbally explained and patient's questions were answered to the best of my ability.? Patient voiced understanding and signed ALEXANDRA form.? Patient provided a copy of signed ALEXANDRA form and original placed in patient's chart.? Patient had no further questions. Piper Lynn, Discharge Planning Asst
--- NOTE | 2025-03-25 16:01 | DCINST_ITS ---
Discharge Instructions DC O2, CPAP, BIPAP needs Home O2 Discharge instructions: No Dressing / Incision Discharge Activity: Return to Normal Activity Dressing / Incision Call your doctor if you observe: Fever of 101 or Higher, Shortness of breath, Dizziness, Fainting spells, Swelling in the ankles, Chest pain and Increased palpitations (irregular heartbeat) Follow Up Care Test Results: Test results from this visit will be discussed in further detail at your follow- up appointment, if applicable. Discharge Plan Admission Admit Date/Time: 03/25/25 05:31 Attending Provider: Jose Luna Primary Care Provider: Nickolas Taylor Consulting Providers: Neal Al; Vic Ying; Marlen Delacruz; Obdulia Iraheta; Nidhi Bonilla; Armaan Kumari; Feli Peterson; Zack Garrido; Gunner Rosales; Edward Franco; Velvet Bull; Brooke Mendes; Catracho Lamb; Roslyn An; Floyd Gallego; Elba Pickard; Ehsan Steel; Anabel Brown; Juanjose Biggs; Rina Stokes; Clayton Combs; Lucila Matt Discharge Orders/Prescriptions Prescriptions: New atorvastatin 40 mg Tablet 40 mg PO QHS 30 Days Qty: 30 0RF Eliquis 5 mg tablet 5 mg PO BID 30 Days Qty: 60 0RF Continued levothyroxine 75 MCG tablet 75 mcg PO DAILY Patient Comments: thyroid Discontinued aspirin 325 mg tablet 325 mg PO DAILY Referrals / Follow Up: Nickolas Taylor MD [Primary Care Provider, Family Practice] - Within 1 Week Carlo Winslow MD [Med Staff - Active Staff, Cardiology] - Within 2 Weeks Sarwat Irving MD [Non-Staff -Ordering Privileges, Neurology] - Within 1 Month Disposition Disposition (needs filled in before D/C Order can be placed): Home, Self Care
--- NOTE | 2025-03-25 16:03 | CASEMGMT ---
Social Work Per physician pt negative for stroke, therefore PHQ9 not completed. AALIYAH Obregon
--- NOTE | 2025-03-25 16:25 | DS.PCM_ITS ---
Providers Date of Admission: 03/25/25 Date of Discharge: 03/25/25 Primary Care Physician: Dr. Nickolas Taylor MD Consultations 03/25/25 06:30 Consult: Tele-Neurology Routine Consulting Provider: [facility] Reason for Consult: Acute Ischemic Stroke/TIA EMERGENT Consult: No MD Notified: Yes Date Notified: 03/25/25 Time Notified: 05:31 Method of Notification: Answering Service Method of Consult:: Telemedicine Comments:: routine teleneuro consult called @ 0644 Nursing Unit Staff Notify [facility] of Tele-Neurology Consult: Yes Reason For Visit: TIA/CVA Diagnosis Discharge Diagnosis (1) TIA (transient ischemic attack): Status: Acute Code(s): G45.9 - Transient cerebral ischemic attack, unspecified Medications at Discharge Home Medications levothyroxine 75 mcg tablet 75 mcg PO DAILY thyroid 08/27/13 apixaban 5 mg tablet (Eliquis) 5 mg PO BID 30 days #60 tabs 03/25/25 atorvastatin 40 mg tablet 40 mg PO QHS 30 days #30 tabs 03/25/25 Hospital Course Operations None Procedures None Summary of Care Provided Minutes Spent on Discharge: 35 Hospital Course: Per HPI: The patient is an 89 y/o M w/ PMHx: Hx polymyositis with chronic left upper extremity weakness, 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 Workup in the ED included T98.2, heart rate 98, BP 180/67, respiratory rate 14, 98% on room air, CBC with WBC 6.3, Hgb 14.1, MCV 94.2, platelet 122 without marked shift, coags unremarkable, BMP with BUN/creatinine 26/1.15, GFR 62, troponin 19, CT head with no acute intracranial findings, CTA head and neck pending upon requested evaluation of patient, EKG with atrial sensed ventricular paced rhythm with no acute evidence of ischemia. Stroke alert initiated in the ED and patient evaluated by neurology with recommendation for avoidance of tenecteplase given low NIH stroke scale assessments but stroke workup including MRI as device was noted to be compatible.\ Hospital Course: 1. TIA versus CVA?89-year-old male came to the hospital with numbness and tingling along his left face. There is no obvious facial droop but says that he feels like he went to the dentist and got a Novocain injection. He was evaluated by neurology who felt that he would might benefit from anticoagulation given his history of paroxysmal A-fib. As an outpatient he was not on anticoagulation because his pacemaker was showing very limited episodes of A-fib however given the continued symptomatic neurological findings despite the negative imaging, I discussed the case with his assurance manager insurance who felt it would be appropriate to place him on full anticoagulation at this time. Based on renal function and age she does qualify for Eliquis 5 mg p.o. twice daily, and social work was able to verify that this would be affordable to him. We also added Lipitor to his medication regimen. I recommend that he follow-up with neurology in 1 month and his assurance manager insurance in 2 weeks. I will certainly follow- up with his PCP in 3 to 5 days after discharge. I discussed with him the plan for discharge today and he expressed understanding of the risks and benefits of going home and would like to go home today. His only other medical problem is hypothyroidism which is being treated with Synthroid, this is a chronic medical condition which complicates his care. Of note he did have an echocardiogram during this admission with an EF of 60% and a PASP of 30 mmHg Xeroflo I do not have. Physical Exam Narrative General: Alert, Oriented x3, Cooperative, No apparent distress HEENT: Atraumatic, PERRLA, EOMI, Normocephalic Oral: Moist Mucosa Neck: Supple, No JVD Lungs: Diminished, Normal air movement, No rhonchi, No wheeze, No rales Cardiovascular: Regular rate, Regular Rhythm, Normal S1, Normal S2, No murmurs Abdomen: Soft, Non Tender, Non-Distended, No Hepato-splenomegaly Extremities: No edema, Capillary Refill Less than 3 Seconds Skin: No rashes, No breakdown Musculoskeletal: No Tenderness to Palpation of Joints or Extremities Neurological: No focal neurological deficits, decrease sensation on left face, moves all extremities. 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 Psych/Mental Status: Normal Affect, Appropriate Weight / BMI Weight Weight: 149 lb 0.52 oz Body Mass Index (BMI) 24.0 ABG / Lab / Microbiology Data 03/25/25 04:23 03/25/25 04:23 Laboratory: Laboratory Results - last 24 hr 03/25/25 04:23: WBC 6.3, RBC 4.49 L, Hgb 14.1, Hct 42.3, MCV 94.2 H, MCH 31.4, MCHC 33.3, RDW Std Deviation 46.2 H, RDW Coeff of Chhaya 13.3, Plt Count 122 L, MPV 10.0, Immature Gran % (Auto) 0.300, Neut % (Auto) 55.7, Lymph % (Auto) 28.5, M rose % (Auto) 10.7 H, Eos % (Auto) 4.0, Baso % (Auto) 0.8, Absolute Neuts (auto) 3.5, Absolute Lymphs (auto) 1.78, Nucleated RBC % 0, PT 14.2, INR 1.1, APTT 29.9, Sodium 138, Potassium 4.1, Chloride 104, Carbon Dioxide 25.1, Anion Gap 10, BUN 26 H, Creatinine 1.15, Estim Creat Clear Calc 40.84 L, Est GFR (MDRD) Non-Af 62, BUN/Creatinine Ratio 22.9 H, Glucose 98, Hemoglobin A1c 5.6, Calcium 9.1, Magnesium 2.3 H, Troponin T High Sens 19, TSH 1.590 03/25/25 04:30: POC Glucose 83 03/25/25 06:19: Troponin T Hi Sens 2 Hr 17 03/25/25 08:28: Troponin T Hi Sens 4Hr 17, Triglycerides 71, Cholesterol 173, LDL Cholesterol, Calc 111, VLDL Cholesterol 14, HDL Cholesterol 49, Cholesterol/HDL Ratio 3.56 Radiography Diagnostic Testing: Radiology Impression Echocardiogram 03/25/25 06:30 Interpretation Summary Normal LV size. The left ventricular ejection fraction is 60 %. Stable appearing bioprosthetic mitral valve apparatus. Mean transmitral valve gradient 6 mmHg. The left atrium is severely enlarged. Pulmonary artery systolic pressure is 30 mmHg. The previous the above parameters appear unchanged. Ordering Physician: Lucila Matt Referring Physician: Nickolas Taylor Performed By: David Pickett RDCS D/C Instructions Call your doctor if you observe: Fever of 101 or Higher, Shortness of breath, Dizziness, Fainting spells, Swelling in the ankles, Chest pain and Increased palpitations (irregular heartbeat) DC O2, CPAP, BIPAP Needs Home O2 Discharge instructions: No Meaningful Use Info Meaningful Use Meaningful Use Diagnoses (Choose all that apply): None applicable Discharge Plan Admission Admit Date/Time: 03/25/25 05:31 Attending Provider: Jose Luna Primary Care Provider: Nickolas Taylor Consulting Providers: Neal Al; Vic Ying; Marlen Delacruz; Obdulia Iraheta; Nidhi Bonilla; Armaan Kumari; Feli Peterson; Zack Garrido; Gunner Rosales; Edward Franco; Velvet Bull; Brooke Mendes; Catracho Lamb; Roslyn An; Floyd Gallego; Elba Pickard; Ehsan Steel; Anabel Brown; Juanjose Biggs; Rina Stokes; Clayton Combs; Lucila Matt Discharge Orders/Prescriptions Prescriptions: New atorvastatin 40 mg Tablet 40 mg PO QHS 30 Days Qty: 30 0RF Eliquis 5 mg tablet 5 mg PO BID 30 Days Qty: 60 0RF Continued levothyroxine 75 MCG tablet 75 mcg PO DAILY Patient Comments: thyroid Discontinued aspirin 325 mg tablet 325 mg PO DAILY Referrals / Follow Up: Nickolas Taylor MD [Primary Care Provider, Family Practice] - Within 1 Week Carlo Winslow MD [Med Staff - Active Staff, Cardiology] - Within 2 Weeks Sarwat Irving MD [Non-Staff -Ordering Privileges, Neurology] - Within 1 Month Disposition Disposition (needs filled in before D/C Order can be placed): Home, Self Care Charges/Coding Visit Charges Inpatient E&M: 08291 Disch Hosp >30min
--- NOTE | 2025-03-25 17:04 | CASEMGMT ---
Patient has order for discharge. Patient discharging on Eliquis. ANGE CARIAS called [facility], copay is $273 as patient has deductible to meet, once met, copay will be $47 per month. ANGE CARIAS updated patient, patient voiced understanding. ANGE CARIAS provided Eliquis savings card to patient. Patient aware to follow up with cardiology if medication becomes too expensive. Patient denies needs or help at discharge. Patient had no further questions or concerns.
== END 2025-03-25 17:53 | disposition home or self-care (01) ==
LOC: ED 05:31 → PCU 05:51
PROVIDERS: Admitting Provider Family Medicine; Emergency Provider Emergency Medicine; PCP Family Medicine; Visit Provider Family Medicine
DX: G45.9 Transient cerebral ischemic attack, unspecified (principal); I27.20 Pulmonary hypertension, unspecified; I48.0 Paroxysmal atrial fibrillation; Z79.82 Long term (current) use of aspirin; Z95.0 Presence of cardiac pacemaker; Z79.83 Long term (current) use of bisphosphonates; Z79.02 Long term (current) use of antithrombotics/antiplatelets; E03.9 Hypothyroidism, unspecified; R03.0 Elevated blood-pressure reading, without diagnosis of hypertension; D69.6 Thrombocytopenia, unspecified; N18.2 Chronic kidney disease, stage 2 (mild); Z79.899 Other long term (current) drug therapy; Z95.2 Presence of prosthetic heart valve
CPT/HCPCS: 70450; 70496; 70498; 70551; 80048; 80061; 82962; 83036; 83735; 84443; 84484; 85025; 85610; 85730; 93005; 93306; 96360; 96361; 96372; 97161; 97166; 97802; 99221; 99285; Q9967; A4216; G0378